=== PATIENT | male | born 1955 | race Caucasian/White ===

== ENCOUNTER → 2016-08-29 | Outpatient (CLI) | payer BC ==
[~2016-08-29] MED LIST: ALDA25TA2 PO; BENA20TA PO; BENA40TA2 PO; CATA0.2T PO; CIAL20TA PO; CLON0.2T PO; DILT120C79 PO; DILT240C5 PO; FURO1TAB15 PO; FURO40TA2 PO; HYDR-4266 PO; INSUHUMDS SC; LANTINJ4 SC; OMEG350C PO; SIMV40TA2 PO; ZANA4TAB PO
--- NOTE | 2016-08-30 09:03 | REP ---
MRI STUDY OF THE LEFT FEMUR WITHOUT CONTRAST: HISTORY: Quadriceps muscle strain. Question fascia or tendon injury. Pain beginning in the hip moving down the leg. Difficulty raising leg. No comparison radiographs. TECHNIQUE: Sagittal axial and coronal T1 proton density T2-weighted scans were obtained in the usual fashion with and without fat saturation. MRI FINDINGS: There is a mild pattern of subcutaneous edema which appears to be diffuse and on the coronal T2 sequence, bilateral. There is no evidence of focal injury of the quadriceps tendon group. Skeletal muscle signal intensity is normal on T1 and T2-weighted scans. Contours are smooth. Myofascial planes are not disrupted. No mass or abnormal fluid collection is appreciated. No vascular abnormality is seen. Cortical and medullary bone signal intensity are normal in the femur except at the knee where there is subtle subcortical marrow edema or cyst formation in the intercondylar notch of the left distal femur. There is magnetic field susceptibility artifact emanating from the proximal femurs or pelvis bilaterally. This is of uncertain etiology. It should be correlated with history of previous surgery. No other abnormality. IMPRESSION: No evidence of myofascial or skeletal injury. Magnetic field susceptibility artifact emanating from the pelvis or both proximal femurs, uncertain etiology. Question history of metal implants. Signed by Sheldon Bhandari MD 08/30/2016 09:28 A
== END ==
LOC: M RAD 18:35
PROVIDERS: ATTEND Nurse Practitioner Family
DX: S76.112A Strain of left quadriceps muscle, fascia and tendon, initial encounter (principal); W18.30XA Fall on same level, unspecified, initial encounter; Y92.009 Unspecified place in unspecified non-institutional (private) residence as the place of occurrence of the external cause

== ENCOUNTER → 2017-07-27 | Outpatient (REF) | payer BC ==
[~2017-07-27] MED LIST changes: -BENA40TA2 PO; +BENA40TA7 PO; -DILT240C5 PO; +DILT240C75 PO; -FURO1TAB15 PO; +FURO80TA2 PO; +HYDR-3910 PO; -HYDR-4266 PO
== END ==
LOC: M LAB REF 17:45
PROVIDERS: ATTEND Internal Medicine Nephrology
DX: N18.3 Chronic kidney disease, stage 3 (moderate) (principal)

== ENCOUNTER → 2017-09-29 | Outpatient (REF) | payer BC ==
[2017-09-29 17:48] LABS: FERRITIN 409 NG/ML (26-388); IRON (FE) 93 UG/DL (65-175); PERCENT SATURATION 32.3 % (19.7-50.0); TOTAL IRON BINDING CAPACITY 288 UG/DL (250-450)
== END ==
LOC: M LAB REF 16:54
DX: D50.9 Iron deficiency anemia, unspecified (principal)
CPT/HCPCS: 83550

== ENCOUNTER 2017-10-07 13:06 | Inpatient (IN) | payer BC ==
[2017-10-07 13:45] LABS: BASO % 0.1 % (0.0-1.0); EOS # 0.1 10^3/uL (0.0-0.50); EOS % 0.6 % (0.0-3.0); HEMATOCRIT 25.6 % (42.0-52.0); HEMOGLOBIN 8.7 g/dl (14.0-18.0); IMMATURE GRANULOCYTE % 0.4 % (0-3.0); LYMPH # 1.5 10^3/uL (1.5-4.5); LYMPH % 10.9 % (24.0-44.0); MEAN CORPUSCULAR HEMOGLOBIN 30.4 pg (27.0-33.0); MEAN CORPUSCULAR VOLUME 89.5 fl (80.0-96.0); MONO # 0.7 10^3/uL (0.0-0.8); NEUTROPHILS # 11.7 10^3/uL (1.8-7.7); PLATELET COUNT, AUTOMATED 257 10^3/uL (150-450); RED BLOOD COUNT 2.86 10^6/uL (4.30-6.10); RED CELL DISTRIBUTION WIDTH 13.4 % (11.5-14.5); WHITE BLOOD COUNT 14.1 10^3/uL (4.0-10.0)
[2017-10-07 13:55] LABS: INR 0.97
[2017-10-07 14:06] LABS: LACTIC ACID SEPSIS PROTOCOL 1.1 MMOL/L (0.4-2.0)
[2017-10-07 14:08] LABS: ANION GAP 10 MEQ/L (8-16); BLOOD UREA NITROGEN 127 MG/DL (7-18); CALCIUM LEVEL 8.4 MG/DL (8.8-10.2); CARBON DIOXIDE LEVEL 25 MEQ/L (21-32); CHLORIDE LEVEL 102 MEQ/L (98-107); CK-MB VALUE MASS 6.1 NG/ML (0.0-3.6); CPK CREATINE PHOSPHOKINASE 97 U/L (39-308); CREATININE FOR GFR 6.82 MG/DL (0.70-1.30); GLOMERULAR FILTRATION RATE 8.8 (>49); GLUCOSE, FASTING 111 MG/DL (70-100); MB/CK RELATIVE INDEX 6.28 (< OR =4); POTASSIUM SERUM 4.6 MEQ/L (3.5-5.1); SODIUM LEVEL 137 MEQ/L (136-145); TROPONIN I 0.07 NG/ML (< 0.10)
[2017-10-07 14:13] LABS: ALBUMIN 3.2 GM/DL (3.2-5.2); ALBUMIN/GLOBULIN RATIO 1.07 (1.00-1.93); ALKALINE PHOSPHATASE 82 U/L (45-117); ALT/SGPT 30 U/L (12-78); AST/SGOT 14 U/L (7-37); BILIRUBIN,DIRECT < 0.1 MG/DL (0.0-0.2); BILIRUBIN,TOTAL 0.2 MG/DL (0.2-1.0); NT-PRO BNP 938 PG/ML (<125); THYROXINE (T4) 6.4 UG/DL (4.5-12.0); TOTAL PROTEIN 6.2 GM/DL (6.4-8.2)
[2017-10-07] MEDS: FUROSEMIDE 100 MG/10 ML VIAL (J1940) IV (14:47)
[2017-10-07] MEDS ORDERED: GLUCAGON FOR INJ 1 MG VIAL (J1610) SC (16:15)
[2017-10-07] MEDS ORDERED: GLUCOSE 4 GM CHEW TABLET PO (16:15)
[2017-10-07] MEDS ORDERED: DEXTROSE 50% 50 ML SYRINGE IV (16:15)
[2017-10-07] MEDS ORDERED: ACETAMINOPHEN TAB 650MG DOSE (2X325MG) PO (16:15)
[2017-10-07] MEDS ORDERED: tiZANidine 4 MG TAB PO (16:15)
[2017-10-07 16:26] LABS: OSMOLALITY URINE 337 MOSM/KG (500-800)
[2017-10-07 16:37] LABS: APPEARANCE, URINE HAZY (CLEAR); BACTERIA, URINE AUTO NEGATIVE (NEGATIVE); BILIRUBIN, URINE AUTO NEGATIVE (NEGATIVE); BLOOD, URINE BLOOD NEGATIVE (NEGATIVE); COLOR, URINE YELLOW (YELLOW); GLUCOSE, URINE (UA) AUTO 1+ mg/dL (NEGATIVE); KETONE, URINE AUTO NEGATIVE (NEGATIVE); LEUKOCYTE ESTERASE, URINE AUTO NEGATIVE (NEGATIVE); MUCUS, URINE SMALL (NEGATIVE); NITRITE, URINE AUTO NEGATIVE (NEGATIVE); PROTEIN, URINE AUTO 2+ mg/dL (NEGATIVE); RBC, URINE AUTO 3 /HPF (0-3); RETIC HEMOGLOBIN EQUIVALENT 37.4 pg (24-36); RETICULOCYTE # 36.5 10^9/L (17-77); RETICULOCYTE % 1.3 % (0.5-1.5); SPECIFIC GRAVITY URINE AUTO 1.011 (1.002-1.035); SQUAMOUS EPITHELIAL CELL UR AU 0 /HPF (0-6); UROBILINOGEN, URINE AUTO 0.2 mg/dL (0.0-2.0); WBC, URINE AUTO 1 /HPF (0-3)
[2017-10-07 16:40] LABS: CHLORIDE,RANDOM URINE 44 MEQ/L; POTASSIUM RANDOM URINE 29.7 MEQ/L; SODIUM,RANDOM URINE 44 MEQ/L; TOTAL PROTEIN,RANDOM URINE 143.3 MG/DL (0.0-12.0)
[2017-10-07 16:41] LABS: FERRITIN 364 NG/ML (26-388); IRON (FE) 68 UG/DL (65-175); PERCENT SATURATION 26.6 % (19.7-50.0); TOTAL IRON BINDING CAPACITY 256 UG/DL (250-450)
[2017-10-07 16:55] LABS: BEDSIDE GLUCOSE 108 MG/DL (80-115)
[2017-10-07] MEDS: HumaLOG INSULIN (NovoLOG) PER UNIT SC ×2 (17:58→20:33)
[2017-10-07 18:04] LABS: BEDSIDE GLUCOSE 98 MG/DL (80-115)
[2017-10-07] MEDS: FUROSEMIDE 40 MG/4 ML VIAL (J1940) IV ×2 (20:12→23:51)
[2017-10-07] MEDS: LEVEMIR (INSULIN DETEMIR) 1 UNITS/0.01ML SC (20:34)
[2017-10-07 20:58] LABS: BEDSIDE GLUCOSE 139 MG/DL (80-115)
[2017-10-07] MEDS: ATROPINE SULFATE 1% OP SOLN 2 ML BTL OU (21:15)
[2017-10-07] MEDS: HEPARIN SOD (PORCINE) 5000 UNITS/ML VIAL SC (21:15)
[2017-10-07] MEDS: SIMVASTATIN 40 MG TAB PO (21:15)
[2017-10-07] MEDS: SLF 3 ML SYR IV (21:15)
[2017-10-08] MEDS: FUROSEMIDE 40 MG/4 ML VIAL (J1940) IV ×4 (04:34→16:28)
[2017-10-08 05:33] LABS: HEMATOCRIT 24.5 % (42.0-52.0); HEMOGLOBIN 8.5 g/dl (14.0-18.0); MEAN CORPUSCULAR HEMOGLOBIN 31.3 pg (27.0-33.0); MEAN CORPUSCULAR HGB CONC 34.7 g/dl (32.0-36.5); MEAN CORPUSCULAR VOLUME 90.1 fl (80.0-96.0); PLATELET COUNT, AUTOMATED 244 10^3/uL (150-450); RED BLOOD COUNT 2.72 10^6/uL (4.30-6.10); RED CELL DISTRIBUTION WIDTH 13.6 % (11.5-14.5); WHITE BLOOD COUNT 15.5 10^3/uL (4.0-10.0)
[2017-10-08 05:48] LABS: ALBUMIN 3.1 GM/DL (3.2-5.2); ALBUMIN/GLOBULIN RATIO 1.15 (1.00-1.93); ALKALINE PHOSPHATASE 79 U/L (45-117); ALT/SGPT 29 U/L (12-78); ANION GAP 11 MEQ/L (8-16); AST/SGOT 11 U/L (7-37); BILIRUBIN,TOTAL 0.2 MG/DL (0.2-1.0); BLOOD UREA NITROGEN 128 MG/DL (7-18); CALCIUM LEVEL 8.3 MG/DL (8.8-10.2); CARBON DIOXIDE LEVEL 24 MEQ/L (21-32); CHLORIDE LEVEL 102 MEQ/L (98-107); CREATININE FOR GFR 7.01 MG/DL (0.70-1.30); GLOMERULAR FILTRATION RATE 8.5 (>49); GLUCOSE, FASTING 155 MG/DL (70-100); MAGNESIUM LEVEL 2.5 MG/DL (1.8-2.4); POTASSIUM SERUM 4.6 MEQ/L (3.5-5.1); SODIUM LEVEL 137 MEQ/L (136-145); TOTAL PROTEIN 5.8 GM/DL (6.4-8.2)
[2017-10-08] MEDS ORDERED: HEPARIN SOD (PORCINE) 5000 UNITS/ML VIAL As Ordered (06:15)
[2017-10-08] MEDS: SLF 3 ML SYR IV ×3 (06:22→21:09)
[2017-10-08] MEDS: HEPARIN SOD (PORCINE) 5000 UNITS/ML VIAL SC ×3 (06:22→21:09)
[2017-10-08] MEDS: HumaLOG INSULIN (NovoLOG) PER UNIT SC ×4 (07:51→20:37)
[2017-10-08] MEDS: MULTIVITAMINS/MINERALS THERAP 1 TAB PO (08:41)
[2017-10-08] MEDS: VITAMIN D 1,000 INTERNATIONAL UNITS TABLET PO (08:41)
[2017-10-08] MEDS: CALCITRIOL 0.25 MCG CAP (S0169) PO (08:42)
[2017-10-08] MEDS: ATROPINE SULFATE 1% OP SOLN 2 ML BTL OU ×2 (08:44→21:10)
[2017-10-08] MEDS: LEVEMIR (INSULIN DETEMIR) 1 UNITS/0.01ML SC ×2 (08:44→20:38)
[2017-10-08 11:52] LABS: BEDSIDE GLUCOSE 172 MG/DL (80-115)
[2017-10-08] MEDS: PANTOPRAZOLE 40MG INJ (PROTONIX) (C9113) IV (12:18)
[2017-10-08] MEDS ORDERED: DARBEPOETIN 100 MCG/0.5 ML *DIALYSIS* SYRINGE (J0882) IV (16:45)
[2017-10-08 16:54] LABS: BEDSIDE GLUCOSE 95 MG/DL (80-115)
[2017-10-08] MEDS: SIMVASTATIN 40 MG TAB PO (21:09)
[2017-10-09] MEDS: FUROSEMIDE 40 MG/4 ML VIAL (J1940) IV ×3 (00:10→17:47)
[2017-10-09 03:39] LABS: BEDSIDE GLUCOSE 93 MG/DL (80-115)
[2017-10-09 03:39] LABS: BEDSIDE GLUCOSE 59 MG/DL (80-115)
[2017-10-09 03:47] LABS: BEDSIDE GLUCOSE 121 MG/DL (80-115)
[2017-10-09] MEDS: HEPARIN SOD (PORCINE) 5000 UNITS/ML VIAL SC ×3 (05:06→22:08)
[2017-10-09] MEDS: SLF 3 ML SYR IV ×4 (05:07→17:44)
[2017-10-09 05:20] LABS: HEMATOCRIT 24.1 % (42.0-52.0); HEMOGLOBIN 8.3 g/dl (14.0-18.0); MEAN CORPUSCULAR HGB CONC 34.4 g/dl (32.0-36.5); MEAN CORPUSCULAR VOLUME 89.9 fl (80.0-96.0); PLATELET COUNT, AUTOMATED 243 10^3/uL (150-450); RED BLOOD COUNT 2.68 10^6/uL (4.30-6.10); RED CELL DISTRIBUTION WIDTH 13.4 % (11.5-14.5); WHITE BLOOD COUNT 12.6 10^3/uL (4.0-10.0)
[2017-10-09 05:33] LABS: ALBUMIN 2.9 GM/DL (3.2-5.2); ALBUMIN/GLOBULIN RATIO 0.91 (1.00-1.93); ALKALINE PHOSPHATASE 77 U/L (45-117); ALT/SGPT 29 U/L (12-78); ANION GAP 11 MEQ/L (8-16); AST/SGOT 17 U/L (7-37); BILIRUBIN,TOTAL 0.3 MG/DL (0.2-1.0); BLOOD UREA NITROGEN 121 MG/DL (7-18); CALCIUM LEVEL 8.2 MG/DL (8.8-10.2); CARBON DIOXIDE LEVEL 25 MEQ/L (21-32); CHLORIDE LEVEL 104 MEQ/L (98-107); CREATININE FOR GFR 6.52 MG/DL (0.70-1.30); GLOMERULAR FILTRATION RATE 9.3 (>49); GLUCOSE, FASTING 126 MG/DL (70-100); MAGNESIUM LEVEL 2.4 MG/DL (1.8-2.4); POTASSIUM SERUM 4.3 MEQ/L (3.5-5.1); SODIUM LEVEL 140 MEQ/L (136-145); TOTAL PROTEIN 6.1 GM/DL (6.4-8.2)
[2017-10-09] MEDS: HumaLOG INSULIN (NovoLOG) PER UNIT SC ×4 (07:30→20:24)
[2017-10-09] MEDS: LEVEMIR (INSULIN DETEMIR) 1 UNITS/0.01ML SC ×2 (08:54→21:00)
[2017-10-09] MEDS: PANTOPRAZOLE 40MG INJ (PROTONIX) (C9113) IV (08:54)
[2017-10-09] MEDS: MULTIVITAMINS/MINERALS THERAP 1 TAB PO (09:01)
[2017-10-09] MEDS: VITAMIN D 1,000 INTERNATIONAL UNITS TABLET PO (09:01)
[2017-10-09] MEDS: CALCITRIOL 0.25 MCG CAP (S0169) PO (09:01)
[2017-10-09] MEDS: ATROPINE SULFATE 1% OP SOLN 2 ML BTL OU ×2 (09:04→21:01)
[2017-10-09 09:27] LABS: FOLATE > 24.0 NG/ML (>5.4); VITAMIN B12 LEVEL 736 PG/ML (247-911)
[2017-10-09 10:02] LABS: HEPATITIS B SURFACE ANTIBODY NEGATIVE (POSITIVE)
[2017-10-09 10:11] LABS: HEPATITIS B SURFACE ANTIGEN NEGATIVE (NEGATIVE)
[2017-10-09 12:00] LABS: BEDSIDE GLUCOSE 339 MG/DL (80-115)
[2017-10-09] MEDS ORDERED: LIDOCAINE 2% MDV 20 ML VIAL As Ordered (13:08)
[2017-10-09] MEDS ORDERED: HEPARIN 1,000 UNITS/ML 10ML VIAL (FOR RADIOLOGY& DIALYSIS ONLY) As Ordered (13:11)
[2017-10-09 17:34] LABS: BEDSIDE GLUCOSE 89 MG/DL (80-115)
[2017-10-09] MEDS: ONDANSETRON 4MG/2ML VIAL (J2405) IV (17:40)
[2017-10-09 20:26] LABS: BEDSIDE GLUCOSE 191 MG/DL (80-115)
[2017-10-09] MEDS: SIMVASTATIN 40 MG TAB PO (21:01)
[2017-10-10] MEDS: SLF 3 ML SYR IV ×4 (00:35→22:00)
[2017-10-10] MEDS: FUROSEMIDE 40 MG/4 ML VIAL (J1940) IV ×3 (00:39→16:16)
[2017-10-10 04:38] LABS: BEDSIDE GLUCOSE 59 MG/DL (80-115)
[2017-10-10 04:54] LABS: BEDSIDE GLUCOSE 74 MG/DL (80-115)
[2017-10-10] MEDS: HEPARIN SOD (PORCINE) 5000 UNITS/ML VIAL SC ×3 (05:00→23:57)
[2017-10-10 05:12] LABS: HEMATOCRIT 25.8 % (42.0-52.0); HEMOGLOBIN 8.9 g/dl (14.0-18.0); MEAN CORPUSCULAR HEMOGLOBIN 30.4 pg (27.0-33.0); MEAN CORPUSCULAR HGB CONC 34.5 g/dl (32.0-36.5); MEAN CORPUSCULAR VOLUME 88.1 fl (80.0-96.0); PLATELET COUNT, AUTOMATED 263 10^3/uL (150-450); RED BLOOD COUNT 2.93 10^6/uL (4.30-6.10); RED CELL DISTRIBUTION WIDTH 13.6 % (11.5-14.5); WHITE BLOOD COUNT 13.3 10^3/uL (4.0-10.0)
[2017-10-10 05:31] LABS: BEDSIDE GLUCOSE CONFIRMATION 84 MG/DL (LESS THAN 200)
[2017-10-10 05:38] LABS: ALBUMIN 3.3 GM/DL (3.2-5.2); ALBUMIN/GLOBULIN RATIO 1.06 (1.00-1.93); ALKALINE PHOSPHATASE 84 U/L (45-117); ALT/SGPT 32 U/L (12-78); ANION GAP 10 MEQ/L (8-16); AST/SGOT 20 U/L (7-37); BILIRUBIN,TOTAL 0.3 MG/DL (0.2-1.0); BLOOD UREA NITROGEN 112 MG/DL (7-18); CALCIUM LEVEL 8.5 MG/DL (8.8-10.2); CARBON DIOXIDE LEVEL 26 MEQ/L (21-32); CHLORIDE LEVEL 107 MEQ/L (98-107); CREATININE FOR GFR 5.61 MG/DL (0.70-1.30); GLUCOSE, FASTING 82 MG/DL (70-100); MAGNESIUM LEVEL 2.5 MG/DL (1.8-2.4); POTASSIUM SERUM 4.1 MEQ/L (3.5-5.1); SODIUM LEVEL 143 MEQ/L (136-145); TOTAL PROTEIN 6.4 GM/DL (6.4-8.2)
[2017-10-10] MEDS: HumaLOG INSULIN (NovoLOG) PER UNIT SC ×4 (07:30→21:00)
[2017-10-10] MEDS: LEVEMIR (INSULIN DETEMIR) 1 UNITS/0.01ML SC (07:38)
[2017-10-10] MEDS: CALCITRIOL 0.25 MCG CAP (S0169) PO (08:13)
[2017-10-10] MEDS: VITAMIN D 1,000 INTERNATIONAL UNITS TABLET PO (08:13)
[2017-10-10] MEDS: MULTIVITAMINS/MINERALS THERAP 1 TAB PO (08:13)
[2017-10-10] MEDS: PANTOPRAZOLE 40MG INJ (PROTONIX) (C9113) IV (08:13)
[2017-10-10] MEDS: ATROPINE SULFATE 1% OP SOLN 2 ML BTL OU (08:17)
[2017-10-10 11:56] LABS: BEDSIDE GLUCOSE 245 MG/DL (80-115)
[2017-10-10] MEDS: HEPARIN 1,000 UNITS/ML 10ML VIAL (FOR RADIOLOGY& DIALYSIS ONLY) XX (15:45)
[2017-10-10 17:19] LABS: BEDSIDE GLUCOSE 247 MG/DL (80-115)
[2017-10-11] MEDS: SIMVASTATIN 40 MG TAB PO (00:04)
[2017-10-11] MEDS: LEVEMIR (INSULIN DETEMIR) 1 UNITS/0.01ML SC ×2 (00:08→08:35)
[2017-10-11] MEDS: ATROPINE SULFATE 1% OP SOLN 2 ML BTL OU ×2 (00:13→08:37)
[2017-10-11 01:41] LABS: BEDSIDE GLUCOSE 322 MG/DL (80-115)
[2017-10-11] MEDS: HEPARIN SOD (PORCINE) 5000 UNITS/ML VIAL SC (05:02)
[2017-10-11] MEDS: SLF 3 ML SYR IV (05:02)
[2017-10-11 05:16] LABS: BEDSIDE GLUCOSE 271 MG/DL (80-115)
[2017-10-11 05:49] LABS: HEMATOCRIT 26.7 % (42.0-52.0); MEAN CORPUSCULAR HEMOGLOBIN 30.4 pg (27.0-33.0); MEAN CORPUSCULAR HGB CONC 33.7 g/dl (32.0-36.5); MEAN CORPUSCULAR VOLUME 90.2 fl (80.0-96.0); PLATELET COUNT, AUTOMATED 240 10^3/uL (150-450); RED BLOOD COUNT 2.96 10^6/uL (4.30-6.10); RED CELL DISTRIBUTION WIDTH 13.8 % (11.5-14.5); WHITE BLOOD COUNT 10.7 10^3/uL (4.0-10.0)
[2017-10-11 06:25] LABS: ALBUMIN 3.1 GM/DL (3.2-5.2); ALBUMIN/GLOBULIN RATIO 0.84 (1.00-1.93); ALKALINE PHOSPHATASE 82 U/L (45-117); ALT/SGPT 30 U/L (12-78); ANION GAP 7 MEQ/L (8-16); AST/SGOT 20 U/L (7-37); BILIRUBIN,TOTAL 0.3 MG/DL (0.2-1.0); BLOOD UREA NITROGEN 75 MG/DL (7-18); CALCIUM LEVEL 8.7 MG/DL (8.8-10.2); CARBON DIOXIDE LEVEL 29 MEQ/L (21-32); CHLORIDE LEVEL 106 MEQ/L (98-107); CREATININE FOR GFR 4.47 MG/DL (0.70-1.30); GLOMERULAR FILTRATION RATE 14.3 (>49); GLUCOSE, FASTING 249 MG/DL (70-100); MAGNESIUM LEVEL 2.3 MG/DL (1.8-2.4); POTASSIUM SERUM 4.3 MEQ/L (3.5-5.1); SODIUM LEVEL 142 MEQ/L (136-145); TOTAL PROTEIN 6.8 GM/DL (6.4-8.2)
[2017-10-11] MEDS: HumaLOG INSULIN (NovoLOG) PER UNIT SC (08:35)
[2017-10-11] MEDS: VITAMIN D 1,000 INTERNATIONAL UNITS TABLET PO (08:36)
[2017-10-11] MEDS: CALCITRIOL 0.25 MCG CAP (S0169) PO (08:36)
[2017-10-11] MEDS: PANTOPRAZOLE 40MG INJ (PROTONIX) (C9113) IV (08:36)
[2017-10-11] MEDS: MULTIVITAMINS/MINERALS THERAP 1 TAB PO (08:36)
[2017-10-11] MEDS ORDERED: TORSEMIDE 100 MG TAB PO (09:00)
[2017-10-11] MEDS ORDERED: MINOXIDIL 2.5 MG TAB PO (09:00)
== END 2017-10-11 10:10 | disposition home or self-care (01) | DRG 167 ==
LOC: M ED 13:06 → M ED INP 15:47 → M PCU 17:45
PROC: 02H633Z Insertion of Infusion Device into Right Atrium, Percutaneous Approach (ICD-10-PCS; principal; 2017-10-09)
PROC: 0JH63XZ Insertion of Tunneled Vascular Access Device into Chest Subcutaneous Tissue and Fascia, Percutaneous Approach (ICD-10-PCS; 2017-10-09)
DX: I13.2 Hypertensive heart and chronic kidney disease with heart failure and with stage 5 chronic kidney disease, or end stage renal disease (principal); N17.9 Acute kidney failure, unspecified; E66.01 Morbid (severe) obesity due to excess calories; G62.9 Polyneuropathy, unspecified; E87.70 Fluid overload, unspecified; E78.5 Hyperlipidemia, unspecified; E11.9 Type 2 diabetes mellitus without complications; D63.1 Anemia in chronic kidney disease; N18.6 End stage renal disease; M10.9 Gout, unspecified; E66.9 Obesity, unspecified; Z79.899 Other long term (current) drug therapy; Z79.4 Long term (current) use of insulin; H40.9 Unspecified glaucoma; Z88.8 Allergy status to other drugs, medicaments and biological substances; I50.33 Acute on chronic diastolic (congestive) heart failure

== ENCOUNTER 2017-12-19 07:41 | Day surgery (SDC) | payer BC ==
[2017-12-19] MEDS ORDERED: NS 1,000 ML IV (08:00)
[2017-12-19 08:29] LABS: POTASSIUM SERUM 4.5 MEQ/L (3.5-5.1)
[2017-12-19 08:42] LABS: BEDSIDE GLUCOSE 101 MG/DL (80-115)
[2017-12-19] MEDS: BUPIVACAINE HCL 0.5% 30 ML VIAL As Ordered (09:10)
[2017-12-19] MEDS: ISOVUE-300 61% 50ML VIAL (Q9967) As Ordered (09:10)
[2017-12-19] MEDS ORDERED: fentaNYL 100 MCG/2 ML INJECTION (J3010) As Ordered (09:45)
[2017-12-19] MEDS ORDERED: PROPOFOL 200 MG/20 ML VIAL As Ordered (09:45)
[2017-12-19] MEDS ORDERED: MIDAZOLAM INJ 2 MG/2 ML VIAL (J2250) As Ordered (09:45)
[2017-12-19] MEDS ORDERED: LIDOCAINE 2% INJ 100 MG/5 ML SDV (FOR ANES.) As Ordered (09:45)
[2017-12-19] MEDS ORDERED: PROPOFOL 500 MG/50 ML VIAL As Ordered (10:23)
[2017-12-19] MEDS: HEPARIN SOD (PORCINE) 5000 UNITS/ML VIAL As Ordered (10:32)
[2017-12-19] MEDS: LIDOCAINE 1% SDV INJ 30 ML VIAL As Ordered (11:00)
== END 2017-12-19 12:04 | disposition home or self-care (01) ==
LOC: M SDC 07:41
DX: N18.6 End stage renal disease (principal); Z99.2 Dependence on renal dialysis
CPT/HCPCS: 36821

== ENCOUNTER → 2018-01-03 | Outpatient (CLI) | payer BC ==
[~2018-01-03] MED LIST changes: -ALDA25TA2 PO; -BENA20TA PO; -BENA40TA7 PO; -CATA0.2T PO; -CIAL20TA PO; -CLON0.2T PO; -DILT120C79 PO; -DILT240C75 PO; -FURO40TA2 PO; -FURO80TA2 PO; +HEPARIN 1,000 UNITS/ML 10ML VIAL (FOR RADIOLOGY& DIALYSIS ONLY) As Ordered; -HYDR-3910 PO; -INSUHUMDS SC; +ISOVUE-300 61% 50ML VIAL (Q9967) As Ordered; -LANTINJ4 SC; +MIDAZOLAM INJ 2 MG/2 ML VIAL (J2250) As Ordered; -OMEG350C PO; -SIMV40TA2 PO; -ZANA4TAB PO; +fentaNYL 100 MCG/2 ML INJECTION (J3010) As Ordered
== END | disposition home or self-care (01) ==
LOC: M IRPRO 07:45
DX: T82.898A Other specified complication of vascular prosthetic devices, implants and grafts, initial encounter (principal); N18.6 End stage renal disease
CPT/HCPCS: 36901

== ENCOUNTER 2018-02-02 11:31 | Day surgery (SDC) | payer BC ==
[2018-02-02] MEDS ORDERED: LIDOCAINE 1% MDV 20ML VIAL SQ (11:45)
[2018-02-02] MEDS ORDERED: D5W/0.2% SODIUM CHLORIDE 1,000 ML IV (11:45)
[2018-02-02] MEDS ORDERED: ROCURONIUM BROMIDE 50 MG/5 ML VIAL As Ordered (12:21)
[2018-02-02] MEDS ORDERED: LIDOCAINE 2% INJ 100 MG/5 ML SDV (FOR ANES.) As Ordered (12:21)
[2018-02-02] MEDS ORDERED: PROPOFOL 200 MG/20 ML VIAL As Ordered ×2 (12:21→13:17)
[2018-02-02 12:23] LABS: POTASSIUM SERUM 4.3 MEQ/L (3.5-5.1)
[2018-02-02 12:26] LABS: BEDSIDE GLUCOSE 171 MG/DL (80-115)
[2018-02-02] MEDS ORDERED: fentaNYL 100 MCG/2 ML INJECTION (J3010) As Ordered (13:05)
[2018-02-02] MEDS ORDERED: MIDAZOLAM INJ 2 MG/2 ML VIAL (J2250) As Ordered (13:05)
[2018-02-02] MEDS ORDERED: ONDANSETRON 4MG/2ML VIAL (J2405) As Ordered (14:08)
[2018-02-02] MEDS: BUPIVACAINE HCL 0.5% 30 ML VIAL As Ordered (14:15)
[2018-02-02] MEDS: LIDOCAINE 1% SDV INJ 30 ML VIAL As Ordered (14:15)
[2018-02-02 14:52] LABS: BEDSIDE GLUCOSE 168 MG/DL (80-115)
[2018-02-02] MEDS ORDERED: NS 1,000 ML IV (15:30)
[2018-02-02] MEDS ORDERED: NORCO, ANEXSIA 5/325MG TABLET (HYDROcodone/ACETAMINOPHEN) PO (15:30)
[2018-02-02] MEDS ORDERED: ONDANSETRON 4MG/2ML VIAL (J2405) IV (15:30)
[2018-02-02] MEDS ORDERED: fentaNYL 100 MCG/2 ML INJECTION (J3010) IV (15:30)
== END 2018-02-02 16:23 | disposition home or self-care (01) ==
LOC: M SDC 11:31
DX: N18.6 End stage renal disease (principal); Z99.2 Dependence on renal dialysis; I10 Essential (primary) hypertension; E11.9 Type 2 diabetes mellitus without complications; E78.5 Hyperlipidemia, unspecified; D64.9 Anemia, unspecified; Z79.899 Other long term (current) drug therapy; Z79.4 Long term (current) use of insulin
CPT/HCPCS: 49324

== ENCOUNTER → 2018-04-12 | Outpatient (CLI) | payer BC, MEDICARE ==
[~2018-04-12] MED LIST changes: -HEPARIN 1,000 UNITS/ML 10ML VIAL (FOR RADIOLOGY& DIALYSIS ONLY) As Ordered; -ISOVUE-300 61% 50ML VIAL (Q9967) As Ordered; +LIDOCAINE 2% MDV 20 ML VIAL As Ordered; -MIDAZOLAM INJ 2 MG/2 ML VIAL (J2250) As Ordered; -fentaNYL 100 MCG/2 ML INJECTION (J3010) As Ordered
== END | disposition home or self-care (01) ==
LOC: M IRPRO 10:13
DX: Z45.2 Encounter for adjustment and management of vascular access device (principal); N18.6 End stage renal disease; Z99.2 Dependence on renal dialysis
CPT/HCPCS: 36589

== ENCOUNTER 2019-05-13 19:18 | Inpatient (IN) | payer BC, MEDICARE ==
[~2019-05-13 19:18] MED LIST changes: +ALDA25TA2 PO; +ALLO10TA PO; +ATRO1OPD OU; +BENA20TA PO; +BENA40TA7 PO; +BIMA01SOL OS; +CALC1CAP31 PO; +CATA0.2T PO; +CIAL20TA PO; +CLON-412 PO; +CLON0.2T PO; +DILT120C78 PO; +DILT240C28 PO; +DILT240C82 PO; +DURE0.055 OD; +FURO40TA2 PO; +FURO80TA2 PO; +HYDR-3910 PO; +ILEV0.3D OD; +INSUHUMDS SC; +INSULANT SC; +LANTINJ4 SC; -LIDOCAINE 2% MDV 20 ML VIAL As Ordered; +MINO10TA PO; +OMEG350C PO; +POLY2.5S OD; +PRED10PA PO; +SIMB1SUS OS; +SIMV40TA2 PO; +TIMO0.5S29 OS; +TORS100T PO; +VITA-182 PO; +VITMTA PO; +ZANA4TAB PO
[2019-05-13 20:30] VITALS: BP 174/72
[2019-05-13 21:38] LABS: HEMATOCRIT 28.4 % (42.0-52.0); HEMOGLOBIN 9.5 g/dl (13.5-17.5); MEAN CORPUSCULAR HEMOGLOBIN 32.8 pg (27.0-33.0); MEAN CORPUSCULAR HGB CONC 33.5 g/dl (32.0-36.5); MEAN CORPUSCULAR VOLUME 97.9 fl (80.0-96.0); PLATELET COUNT, AUTOMATED 250 10^3/uL (150-450); WHITE BLOOD COUNT 15.2 10^3/uL (4.0-10.0)
--- NOTE | 2019-05-13 21:49 | HPEPDOC ---
[facility] Medical History & Physical Date of Admission May 13, 2019 Date of Service: May 13, 2019 Primary Care Physician: Debbie Mullen Attending Physician: SILVIA GUTIERREZ MD History and Physical CHIEF COMPLAINT: Syncope HISTORY OF PRESENT ILLNESS: Patient is a 63-year-old male, past medical history significant for end-stage renal disease on peritoneal dialysis, diabetes mellitus, diabetic neuropathy, diabetic retinopathy, hypertension, chronic cervical disc disease, who presents to the hospital as a direct admission from [facility]. Patient presented to [facility] this afternoon after experiencing a syncopal episode at home. Patient states that he was sitting comfortably in his kitchen at home eating lunch. He then intended to stand up and walk towards the living room to change the television channel. Patient reports being unsure of what happened next. Patient reports loss of consciousness coming to approximately 30-40 minutes thereafter. Patient denies any bladder or bowel incontinence, no nausea or vomiting. Patient does have baseline dizziness and some difficulty ambulating secondary to significant diabetic neuropathy for which he often uses a cane. Patient denied any postictal state or confusion. He denied any resulting pain in his head and neck back or shoulders. Upon presentation to the [facility] emergency department, patient was noted to have a single contusion on his forehead. Vitals were found to be stable with a blood pressure 145/58, heart rate of 77, respiratory rate of 16, oxygen saturation 99% on room air and a temperature of 98.3F. An EKG was performed patient was found to be in sinus rhythm at a rate of 76 with a right bundle branch block. Comparison with EKG performed on 10/07/17 the patient was in the emergency department also demonstrates some right ventricular conduction delay.CBC evaluation demonstrated a white cell count of 15.1 predominantly granulocytes. PT and INR within normal limits. Lactic acid 1.4, TSH of 2.55. Patient's BUNs measured at 66 and creatinine of 10.6 consistent with his end- stage renal disease. Alkaline phosphatase was noted to be minimally elevated at 125. The case was discussed with patient's nephrology office and covering provider, Dr. Contreras. Patient transferred for continued peritoneal dialysis and syncopal workup. Patient was accepted for transfer by Dr. Kaplan at 1730. PAST MEDICAL HISTORY: Diabetes mellitus End-stage renal disease, Peritoneal dialysis, 14 months Monday, , Monday Cervical herniated disc, chronic Hypertension Gout Diabetic neuropathy Diabetic retinopathy and vision loss HFpEF Obesity PAST SURGICAL HISTORY: Bilateral cataracts, 2017 Tubular implant right eye, 2018 fistula in left arm Peritoneal graft for dialysis SOCIAL HISTORY: Marital status: , resides in home with spouse. Employment: Retired Tobacco use: Patient denies any smoking history. ETOH: Patient denies any alcohol use or recent intoxication. Illicit drug use: She denies any illicit or IV drug use. Other relevant social factors: Patient denies any recent travel history. Patient utilizes a cane for ambulation secondary to his long-standing neuropathy. FAMILY HISTORY: Family history noncontributory. ALLERGIES: acetazolamide REVIEW OF SYSTEMS: CONSTITUTIONAL: Denies any recent history of fevers or chills, night sweats, trouble sleeping, changes in weight or generalized fatigue. HEENT: Patient denies any headache, changes in vision, changes in hearing, difficulty swallowing. CARDIOVASCULAR: Patient denies any chest pain, palpitations, inappropriate tachycardia RESPIRATORY: Patient denies any recent history of cough, wheeze. He denies any shortness of breath GASTROINTESTINAL: Patient reports intermittent diarrhea over the last 15 days. Most recent stool this morning was performed. GENITOURINARY: Patient continues to produce a very small amount of urine. SKIN: A small contusion measure approximately 2.5 x 2.5 cm noted over patient's forehead. MUSCULOSKELETAL: Patient reports some weakness secondary to neuropathy. He utilizes a cane for ambulation. NEUROLOGICAL: Patient is at baseline mental status per patient's was at bedside. PSYCHIATRIC: Patient denies any history of depressive or anxious symptoms. ENDOCRINE: Denies any polyphagia or polyuria or polydipsia. HEMATOLOGIC/LYMPHATIC: Denies easy bruising. HOME MEDICATIONS: Please see below. PHYSICAL EXAMINATION: VITAL SIGNS: Temperature 98.1, pulse 81, respiratory rate 18, blood pressure 175/86, pulse oximetry 99 % on room air. GENERAL APPEARANCE: She was interviewed and examined in his hospital room. Patient was found to be seated comfortably in his hospital bed, awake and alert and able to answer questions appropriately. Patient's is at bedside. Epifanio bronson appears stated age, knowledgeable of his medical history and able to participate in his care. HEENT: Normocephalic, Contusion measuring approximately 2 cm x 2 cm noted on patient's forehead. Patient's cavarum is otherwise nontender. EOMI, PERRLA. It is membranes moist. No posterior pharyngeal erythema or tonsilar exudates noted. CARDIOVASCULAR: Regular rate and rhythm, normal S1 and S2, no murmurs appreciated. LUNGS: Clear to auscultation bilaterally both anterior and posterior lung schilling. No wheezing rales or rhonchi noted. ABDOMEN: Slightly distended, nontender, no organomegaly, no guarding. Peritoneal dialysis catheter noted without drainage or surrounding erythema. MUSCULOSKELETAL: Patient does not have any shoulder, clavicle, chest, thoracic or lumbar tenderness to palpation bilaterally. EXTREMITIES: Bruit of the left forearm palpated and auscultated. Compression stockings are noted with very trace edema bilaterally. NEUROLOGICAL: Cranial nerves intact. Patient does have decreased sensation equal bilaterally below the knees secondary to long-standing neuropathy. Strength in both upper and lower extremities grossly intact. 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 PSYCHIATRIC: Mood and affect are appropriate given patient's current medical condition LABORATORY DATA: See below. IMAGING: Chest x-ray, [facility] (05/13/19): Radiologist report unavailable. Head CT without contrast, [facility] (05/13/19): Moderate diffuse cerebral atrophy of aging is noted. There is no parenchymal hematomas or extra-axial collections. Severely calcified plaque dimensions of the right vertebral artery is noted. Cervical spine without contrast, [facility] (05/13/19): Severe degenerative changes, loss of normal physiologic lordosis of C5-C6 likely degenerative in nature or secondary to muscle spasm. Ligamentous injury can also. This manner. MICROBIOLOGY: Blood culture, [facility] (05/13/19): Pending PLAN: Syncope -Patient is at low-risk for adverse outcome per [place] Syncope Rule. Consider idiopathic etiology. -Vitals stable, EKG significant for RBBB, no ST changes. Electrolytes and Troponins at [facility] were negative. -Repeat CBC, CMP and Troponin. -Head CT performed at [facility] negative. Baseline mental status without focal deficits on examination. -Tele monitoring for arrhythmia. Neuro checks Q4Hr -Plan for echocardiogram. No significant murmur on examination. Patient denies any chest pain/palpitations or shortness of breath. Patient had an echo performed in September 2017 which demonstrated mild concentric left ventricular hypertrophy with hyperdynamic wall motion. Mildly dilated left atrium with Doppler evidence of impairment of LV diastolic dysfunction and elevated mean left atrial pressure. Normal right heart chamber sizes and motion with Doppler with signs of at least mild pulmonary hypertension. Normal IV CBC size and collapse against elevated central venous pressure at. Mild aortic valvular sclerosis and mitral annular thickening without functionally significant valvular abnormality. Since 2015, his left atrial pressure was increased but otherwise no significant change. End-stage renal disease -Nephrology was consulted regarding possibility of SBP and we appreciate their input -Workup per nephrology -Continue PD Leukocytosis -Patient was found to have an elevated white count of 15.1 while [facility]. Repeat CBC confirms leukocytosis of 15.2. -Patient remains afebrile without history of fever, chills, or respiratory symptoms. -Continue to monitor with CBC and diff -Patient at risk of SBP, prophylactic antibiotics not recommended at this time -Consider reactionary etiology HFpEF -As per 2018 echo cited above. Type 2 diabetes -Patient to receive reduced dose of home Levemir -Lantus 20 units SC QPM -Lantus 30 units SC QAM -Sliding scale insulin before meals and QS. HTN -Continue home medication Dyslipidemia -Continue home statin Diabetic Retinopathy -Continue home medications Obesity -May complicate medical care. DVT PROPHYLAXIS: Subcutaneous heparin Home Medications Scheduled Atropine Sulfate (Atropine Sulfate) 1% 2ML Drops, 1 DROP OS DAILY Bimatoprost (Lumigan) 50 Drop/2.5 Ml Karla, 1 DROP OS QHS Brimonidine Tartrate/Timolol (Combigan 0.2%-0.5% Eye Drops) 5 Ml Drops, 1 DROP OU BID Brinzolamide (Azopt) 1% 10ML Drops.susp, 1 DROP OS BID Calcitriol (Rocaltrol) 0.5 Mcg Capsule, 0.5 MCG PO DAILY Insulin Glargine (Lantus) 1 Units/0.01 Ml Susp, 45 UNITS SC QHS Insulin Glargine (Lantus) 1 Units/0.01 Ml Susp, 65 UNITS SC DAILY Insulin Human Lispro (Humalog) 1 Units/0.01 Ml Inj, 1 DOSE SC AC PER SLIDING SCALE Losartan Potassium (Losartan Potassium) 100 Mg Tablet, 50 MG PO QHS Multivitamins (Thera M Plus Tablet) 1 Tab Tab, 1 TAB PO DAILY Prednisolone Acetate (Prednisolone Acetate 1% Opth Susp) 5 Ml Drops.susp, 1 DROP OS BID Simvastatin (Simvastatin) 40 Mg Tab, 40 MG PO QHS Sucroferric Oxyhydroxide (Velphoro) 500 Mg Tab.chew, 500 MG PO WM Torsemide (Torsemide) 100 Mg Tab, 100 MG PO DAILY dilTIAZem HCl (Diltiazem 24Hr Cd) 240 Mg Cap.er.24h, 240 MG PO DAILY Allergies Coded Allergies: acetazolamide (Verified Adverse Reaction, Severe, CONVULSIONS, 05/13/19) A-FIB/CHADSVASC A-FIB History Current/History of A-Fib/PAF?: No GME ATTESTATION GME ATTESTATION My faculty preceptor for this patient encounter was physically present during the encounter and was fully available. All aspects of the patient interview, examination, medical decision making process, and medical care plan development were reviewed and approved by the faculty preceptor. The faculty preceptor is aware and concurs with the plan as stated in the body of this note and will attest to such by his/her cosignature. ATTENDING NOTE I personally examined at 930PM and discussed the case with and agree with the plan as documented above. has been consulted. BECKY WILSON DO May 13, 2019 21:49 SILVIA GUTIERREZ MD May 13, 2019 23:58
[2019-05-13 22:10] LABS: ALBUMIN 2.9 GM/DL (3.2-5.2); BILIRUBIN,TOTAL 0.3 MG/DL (0.2-1.0); CALCIUM LEVEL 8.2 MG/DL (8.8-10.2); POTASSIUM SERUM 3.6 MEQ/L (3.5-5.1); TOTAL PROTEIN 6.6 GM/DL (6.4-8.2)
[2019-05-13] MEDS ORDERED: DEXTROSE 50% 50 ML SYRINGE IV PRN (22:15)
[2019-05-13] MEDS ORDERED: GLUCOSE 4 GM CHEW TABLET PO PRN (22:15)
[2019-05-13] MEDS ORDERED: GLUCAGON FOR INJ 1 MG VIAL (J1610) SC PRN (22:15)
[2019-05-13] MEDS: HEPARIN SOD (PORCINE) 5000 UNITS/ML VIAL SC SCH (23:21)
[2019-05-13 23:59] VITALS: BP 168/73
[2019-05-14 00:28] LABS: CK-MB VALUE MASS 4.7 NG/ML (<3.6); CPK CREATINE PHOSPHOKINASE 90 U/L (39-308); MAGNESIUM LEVEL 1.8 MG/DL (1.8-2.4); MB/CK RELATIVE INDEX 5.22 (< OR =4); TROPONIN I < 0.02 NG/ML (< 0.10)
[2019-05-14 02:58] LABS: APPEARANCE, BODY FLUID CLEAR (CLEAR); PERITONEAL DIALYSATE FL COLOR PALE YELLOW (COLORLESS); SOURCE, BODY FLUID PERITONEAL DIALYSATE
[2019-05-14 04:00] VITALS: BP_SYST 127; BP_SYST 138; BP_SYST 183; BP_DIAS 55; BP_DIAS 63; BP_DIAS 78
[2019-05-14 06:16] LABS: HEMATOCRIT 25.4 % (42.0-52.0); HEMOGLOBIN 8.4 g/dl (13.5-17.5); MEAN CORPUSCULAR HEMOGLOBIN 32.3 pg (27.0-33.0); MEAN CORPUSCULAR HGB CONC 33.1 g/dl (32.0-36.5); MEAN CORPUSCULAR VOLUME 97.7 fl (80.0-96.0); PLATELET COUNT, AUTOMATED 226 10^3/uL (150-450); WHITE BLOOD COUNT 12.8 10^3/uL (4.0-10.0)
[2019-05-14] MEDS: HEPARIN SOD (PORCINE) 5000 UNITS/ML VIAL SC SCH ×3 (06:16→22:24)
[2019-05-14] MEDS ORDERED: LOSA100T50 PO (06:45)
[2019-05-14 06:49] LABS: CALCIUM LEVEL 8.4 MG/DL (8.8-10.2); CREATININE FOR GFR 11.3 MG/DL (0.70-1.30); GLOMERULAR FILTRATION RATE 4.9 (>49); POTASSIUM SERUM 3.2 MEQ/L (3.5-5.1)
[2019-05-14] MEDS ORDERED: ROCA0.5C PO (06:50)
[2019-05-14] MEDS ORDERED: COMB0.2S OU (06:50)
[2019-05-14] MEDS ORDERED: VELP5CHW PO (06:50)
[2019-05-14] MEDS ORDERED: AZOP0.2S OS (06:50)
[2019-05-14 08:00] VITALS: BP 167/84
[2019-05-14] MEDS ORDERED: ATRO1OPD OS (08:09)
[2019-05-14] MEDS ORDERED: PREDOPD OS (08:09)
[2019-05-14] MEDS ORDERED: DILT240C61 PO (08:13)
[2019-05-14] MEDS ORDERED: PERCOCET 5MG/325MG TAB PO SCH (09:00)
[2019-05-14] MEDS ORDERED: DARBEPOETIN 100 MCG/0.5 ML *NON-DIALYSIS* SYRINGE (J0881) SC SCH (09:00)
[2019-05-14] MEDS ORDERED: POTASSIUM CHLORIDE 10 MEQ SR TABLET PO ONE (09:00)
[2019-05-14] MEDS: prednisoLONE ACET 1% OPHTH SUSP 5ML OS SCH ×2 (09:32→20:40)
[2019-05-14] MEDS: ATROPINE SULFATE 1% OP SOLN 2 ML BTL OS SCH (09:33)
[2019-05-14] MEDS: CALCITRIOL 0.25 MCG CAP (S0169) PO SCH (09:34)
[2019-05-14] MEDS: MULTIVITAMINS/MINERALS THERAP 1 TAB PO SCH (09:34)
[2019-05-14] MEDS: BRINZOLAMIDE 1 % OPHTH SUSP (AZOPT) 10ML OS SCH ×2 (09:34→20:40)
[2019-05-14] MEDS: TORSEMIDE 100 MG TAB PO SCH (09:35)
[2019-05-14] MEDS: HumaLOG INSULIN (NovoLOG) PER UNIT SC SCH ×3 (09:36→17:52)
[2019-05-14] MEDS: LEVEMIR (INSULIN DETEMIR) 1 UNITS/0.01ML SC SCH (09:36)
[2019-05-14] MEDS ORDERED: PERCOCET 5MG/325MG TAB PO PRN (10:15)
--- NOTE | 2019-05-14 10:46 | IPNPDOC ---
Subjective Date Seen The patient was seen on 05/14/19. Subjective Chief Complaint/HPI Patient sitting in a bed once to go home off as no new complaints. is at bedside General: Denies: ROS Unobtainable, Chills, Night Sweats, Fatigue, Malaise, Normal Appetite, Other Symptoms ENT: Denies: Head Aches, Ear Pain, Dysphagia, Sinus Congestion, Post Nasal Drip, Sore Throat, Epistaxis, Other Symptoms Skin: Denies: Rash, Lesions, Jaundice, Bruising, Itching, Dry, Breakdown, Nail Changes, Other Pulmonary: Denies: Dyspnea, Cough, Pleuritic Chest Pain, Other Symptoms Cardiovascular: Denies: Chest Pain, Palpitations, Orthopnea, Paroxysmal Noc. Dyspnea, Edema, Lt Headedness, Other Symptoms Gastrointestinal: Denies: Nausea, Vomiting, Abdominal Pain, Diarrhea, Constipation, Melena, Hematochezia, Other Symptoms Endocrine: Denies: Polydipsia, Polyphagia, Polyuria, Heat Intolerance, Cold Intolerance, Other Endocrine Sx Musculoskeletal: Denies: Neck Pain, Back Pain, Shoulder Pain, Arm Pain, Hand Pain, Leg Pain, Foot Pain, Joint Pain, Muscle Pain, Spasms, Other Symptoms Neurological: Denies: Weakness, Numbness, Incoordination, Change in speech, Confusion, Seizures, Other Symptoms Objective Physical Examination General Exam: Positive: Alert Eye Exam: Positive: PERRLA, Conjunctiva & lids normal ENT Exam: Positive: Atraumatic Neck Exam: Positive: Supple Chest Exam: Positive: Clear to auscultation, Normal air movement Heart Exam: Positive: Rate Normal, Normal S1, Normal S2 Abdomen Exam: Positive: Normal bowel sounds, Soft Extremity Exam: Positive: Normal pulses Skin Exam: Positive: Other skin issue (superficial abrasion on 4) Assessment /Plan Problems (1) Syncope Status: Acute Problem Text: Syncope most likely vasovagal in nature Patient is at low-risk for adverse outcome per [place] Syncope Rule. Consider idiopathic etiology. Vitals stable, EKG significant for RBBB, no ST changes. Electrolytes and Tr oponins at [facility] were negative. Repeat CBC shows WBC count of 12.8, hemoglobin of 8.4, hematocrit 25.4. Electrolytes are normal except serum potassium is slightly low. 3.2 with high BUN/creatinine secondary to end-stage renal disease and troponins are negative Head CT performed at [facility] negative. Baseline mental status without focal deficits on examination. Telemetry monitoring did not show any evidence of arrhythmias. Neurologic were also within normal limits Echocardiogram is still pending, No significant murmur on examination. Patient denies any chest pain/palpitations or shortness of breath. Patient had an echo performed in September 2017 which demonstrated mild concentric left ventricular hypertrophy with hyperdynamic wall motion. Mildly dilated left atrium with Dop pler evidence of impairment of LV diastolic dysfunction and elevated mean left atrial pressure. Normal right heart chamber sizes and motion with Doppler with signs of at least mild pulmonary hypertension. Normal IV CBC size and collapse against elevated central venous pressure at. Mild aortic valvular sclerosis and mitral annular thickening without functionally significant valvular abnormality. Since 2014, his left atrial pressure was increased but otherwise no significant change. (2) Acute on chronic renal failure Status: Acute Problem Text: Dr. Sanchez was consulted Continue the current dialysis Other recommendations as per nephrology (3) Leukocytosis (leucocytosis) Status: Acute Problem Text: Probably acute phase reaction WBC count is 12.8 today Agent is afebrile. No evidence of any infection Monitor level in a.m. Plan/VTE VTE Prophylaxis Ordered?: Yes VS, I&O, 24H, [facility] Vital Signs/I&O Vital Signs Date Time Temp Pulse Resp B/P (MAP) Pulse Ox O2 Delivery O2 Flow Rate FiO2 05/14/19 09:34 87 167/84 05/14/19 09:00 18 05/14/19 08:00 97.3 98 I&O- Last 24 Hours up to 6 AM 05/14/19 06:00 Intake Total 2100 ml Output Total 1500 ml Balance 600 ml Laboratory Data 24H LABS Laboratory Tests 2 05/13/19 21:23: Nucleated Red Blood Cells % (auto) 0.0, Anion Gap 12, Glomerular Filtration Rate 5.0L, Blood Urea Nitrogen 71H, Creatinine 11.00*H, Sodium Level 140, Potassium Level 3.6, Chloride Level 103, Carbon Dioxide Level 25, Calcium Level 8.2L, Aspartate Amino Transf (AST/SGOT) 13, Alanine Aminotransferase (ALT/SGPT) 25, Alkaline Phosphatase 120H, Total Bilirubin 0.3, Total Protein 6.6, Albumin 2.9L, Albumin/Globulin Ratio 0.78L 05/13/19 21:52: Bedside Glucose (Misc Panel) 80 05/13/19 23:55: Magnesium Level 1.8, Total Creatine Kinase 90, Creatine Kinase MB 4.7H, Creatine Kinase MB Relative Index 5.22H, Troponin I < 0.02 05/14/19 02:31: Body Fluid Source PERITONEAL DIALYSATE, Body Fluid WBC (Auto) 48H, Body Fluid RBC (Auto) < 2, Body Fluid Mononuclear Cells % Auto 93.7H, Fluid Polymorphonuclear Cell % Auto 6.3H, Peritoneal Fluid Color PALE YELLOW, Peritoneal Fluid Appearance CLEAR 05/14/19 05:39: Nucleated Red Blood Cells % (auto) 0.0, Anion Gap 11, Glomerular Filtration Rate 4.9L, Blood Urea Nitrogen 70H, Creatinine 11.30*H, Sodium Level 140, Potassium Level 3.2L, Chloride Level 102, Carbon Dioxide Level 27, Calcium Level 8.4L CBC/BMP Laboratory Tests 05/13/19 21:23 Red Blood Count 2.90 L, Mean Corpuscular Volume 97.9 H, Mean Corpuscular Hemoglobin 32.8, Mean Corpuscular Hemoglobin Concent 33.5, Red Cell Distribution Width 14.3, Calcium Level 8.2 L, Aspartate Amino Transf (AST/SGOT) 13, Alanine Aminotransferase (ALT/SGPT) 25, Alkaline Phosphatase 120 H, Total Bilirubin 0.3, Total Protein 6.6, Albumin 2.9 L 05/14/19 05:39 Red Blood Count 2.60 L, Mean Corpuscular Volume 97.7 H, Mean Corpuscular Hemoglobin 32.3, Mean Corpuscular Hemoglobin Concent 33.1, Red Cell Distribution Width 14.2, Calcium Level 8.4 L Microbiology Microbiology 05/14/19 Gram Stain - Final, Resulted 05/14/19 Body Fluid Culture, Resulted Pending HARSHIL CROCKER MD May 14, 2019 10:46
[2019-05-14 12:00] VITALS: BP 137/63
[2019-05-14] MEDS: SUCROFERRIC OXYHYDROXIDE 500MG CHEW TAB (VELPHORO) PO SCH ×2 (12:55→17:52)
[2019-05-14 14:34] LABS: PERCENT SATURATION 26.4 % (19.7-50.0)
[2019-05-14] MEDS ORDERED: SLF 3 ML SYR IV PRN (17:15)
[2019-05-14 20:00] VITALS: BP 140/66
[2019-05-14] MEDS: EYE OU SCH (20:40)
[2019-05-14] MEDS: COMBIGAN OU SCH (20:40)
--- NOTE | 2019-05-14 20:49 | CR ---
DATE OF CONSULTATION: 05/14/2019 REQUESTING PHYSICIAN: Dr. Sherry Dinero CONSULTING PHYSICIAN: Dr. Sanchez REASON FOR CONSULTATION: Management of end-stage renal disease, on peritoneal dialysis. CHIEF COMPLAINT: The patient presented to the [facility] Emergency Room after syncope. HISTORY OF PRESENT ILLNESS: Mr. Jai Lawson is a 63-year-old male with past medical history of end-stage renal disease, on peritoneal dialysis, history of hypertension, diabetes mellitus, type 2, multiple other comorbidities as mentioned below. The patient reports that he has very labile blood pressure, and his antihypertensive medications are being adjusted as outpatient. Initially he was started on losartan 100 mg daily, but after that his blood pressure was dropping too much, so his dose was decreased to 50 mg. Yesterday he was in his kitchen, and after eating his lunch he got up to turn on the TV and watch a program, and he suddenly fell down on the floor. The patient does not remember how long he was on the ground. He was alone at home. When he woke up, he had missed the program, so he feels like he was on the floor for about 30 minutes. He also hit his head when he fell down, and there was a big laceration on his forehead. The patient denies any dizziness or lightheadedness before falling. He did not lose control of bowel or bladder, and he did not bite his tongue. The patient reports that sometime in the past he was given antiseizure medications, but he was seen by neurology, and he was told by neurology that he does not need any antiseizure medicine. The patient initially presented to the [facility] Emergency Room. They do not have any nephrology service available over there, the patient was sent to [facility] for higher level of care. The patient was admitted overnight. He was started on peritoneal dialysis. There are no signs of peritonitis at this time. He is admitted under the hospitalist service. Nephrology service was called for further help in the management of this patient's peritoneal dialysis. I saw and evaluated the patient today morning at the bedside. He denies any headaches. He denies any chest pain, palpitation. He denies any fevers, cough, chills, dysuria, hematuria, or abdominal pain, and he just got his echocardiogram done today morning. PAST MEDICAL HISTORY: 1. Past medical history of end-stage renal disease, on peritoneal dialysis. 2 Diabetes mellitus, type 2. 3. Hypertension. 4. Chronic gout secondary to chronic kidney disease. 5. Diabetic peripheral neuropathy and retinopathy. 6. History of congestive heart failure (CHF) with preserved ejection fraction. 7. Obesity. PAST SURGICAL HISTORY: 1. Status post left upper arm arteriovenous (AV) fistula placement. 2. Status post peritoneal dialysis (PD) catheter placement. 3. Status post tubular implant in the right eye in 2018. 4. History of bilateral cataract surgery. ALLERGIES: He is allergic to ACETAZOLAMIDE. FAMILY HISTORY: No significant family history of end-stage renal disease requiring hemodialysis. SOCIAL HISTORY: The patient is . He lives at home with his . He denies any smoking. Denies any illicit drug abuse or alcohol abuse. REVIEW OF SYSTEMS: CONSTITUTIONAL: He denies any fevers or chills. EYES: He reports poor vision because of diabetes. ENT: Denies any dysphagia or odynophagia. CARDIOVASCULAR: Denies any chest pain or palpitation. RESPIRATORY: Denies any shortness of breath or cough. GASTROINTESTINAL: Denies any nausea or vomiting. GENITOURINARY: Denies any dysuria or hematuria. MUSCULOSKELETAL: He denies any muscle aches and pains. SKIN: He reports contusion on the forehead because of fall. Otherwise he denies any rashes. CENTRAL NERVOUS SYSTEM: He reports the syncope at home. PSYCHIATRIC: He denies any depression or anxiety. ENDOCRINE: He reports a history of diabetes mellitus, type 2. HEMATOLOGY/ONCOLOGY: He denies any easy bleeding or bruising. All other review of systems is negative. PHYSICAL EXAMINATION: GENERAL: The patient is awake, alert, oriented times three, lying in bed. No apparent distress. VITAL SIGNS: Temperature is 97.2 degrees Fahrenheit, blood pressure 137/63, pulse is 81, respiratory rate of 20, saturating 98% on room air. HEAD AND NECK: Pupils are equally round and reactive to light. He has poor vision in both eyes. There was a contusion on the forehead. Mucous membranes are moist. Neck is supple. There is no jugular venous distention (JVD). CARDIOVASCULAR: S1, S2, regular rate. No edema of the bilateral lower extremities. RESPIRATORY: Chest is clear to auscultation bilaterally. Bilateral equal air entry. No rales or rhonchi. ABDOMEN: Soft, obese. Positive bowel sounds. Peritoneal dialysis catheter exit site is clean and nontender. GENITOURINARY: Hernia is not noted. MUSCULOSKELETAL: No clubbing or cyanosis. Pulses are 2+. No edema of the extremities. CENTRAL NERVOUS SYSTEM: No focal deficit. Power is 5/5 in all extremities. LABORATORY REVIEW: CBC showed WBC 12.8, hemoglobin 8.4, platelets are 226. Peritoneal fluid cell count is 48, polymorphonuclear was 6.3%. BMP done today morning showed sodium 140, potassium 3.2, chloride 102, bicarbonate 27, BUN 70, creatinine is 11.3, calcium 8.4. Iron 48, TIBC is 182, transferrin saturation is 26.4, ferritin is 774. CURRENT INPATIENT MEDICATIONS: The patient's medications were all reviewed by me. He is currently on Azopt eyedrops, calcitriol 0.5 mcg by mouth daily, diltiazem 240 mg by mouth daily, heparin 5000 units subcutaneous every 8 hours, insulin Levemir 65 units subcutaneous daily in the morning and 45 in the evening, insulin sliding scale, Lispro, losartan 50 mg at bedtime. multivitamin one tablet by mouth daily, Percocet as needed, potassium chloride 20 mEq by mouth one dose was given today morning, Zocor 40 mg at bedtime, Velphoro 500 mg by mouth with meals, torsemide 100 mg by mouth daily ASSESSMENT: A 63-year-old male with history of end-stage renal disease, on peritoneal dialysis. History of congestive heart failure (CHF) with preserved ejection fraction, diabetes mellitus, type 2, admitted at this time after syncope. PLAN: 1. Syncope. The patient just got the echocardiogram done. CT scan did not show any acute abnormality. EKG showed right bundle branch block. He gives a remote questionable history of seizures in the past. Blood pressure is optimal with the current antihypertensive. Rest of the syncope workup will be done by primary team. There is no sign of infection in the peritoneum. 2. End-stage renal disease, on peritoneal dialysis. Peritoneal fluid cell count is within the acceptable limit. Continue current peritoneal dialysis regimen of five manual exchanges, all 1.5%. The patient uses 2.5% at home, but because of recent syncope I would increase dialysate concentration if the patient remains asymptomatic for the next 24 hours. 3. Leukocytosis. The patient has chronic persistent leukocytosis as outpatient as well. No signs of infection at this time. 4. Hypertension with end-stage renal disease. Continue current dose of diltiazem 240 mg by mouth daily, losartan 50 mg by mouth daily. 5. Chronic kidney disease, mineral bone disease. Continue current dose of Velphoro 500 mg by mouth three times a day with meals. 6. Secondary hyperparathyroidism. Continue current dose of calcitriol 0.15 mcg by mouth daily. 7. Diabetes mellitus, type 2, insulin dependent. Continue home dose of insulin Levemir 65 units in the morning, 45 units in the evening, and insulin sliding scale. 8. Chronic lower extremity edema. Continue home dose of torsemide 100 mg by mouth daily. PD regimen will be adjusted tomorrow. 9. Anemia and end-stage renal disease. Hemoglobin is 8.4, which is suboptimal. I ordered a dose of Aranesp to be given to the patient today. Iron levels are adequate. Thank you for involving me in the care of this patient. I shall be happy to follow the patient tomorrow morning.
[2019-05-14] MEDS ORDERED: HumaLOG INSULIN (NovoLOG) PER UNIT SC SCH (21:00)
[2019-05-14] MEDS ORDERED: SIMVASTATIN 40 MG TAB PO SCH (21:00)
[2019-05-14] MEDS ORDERED: EYE OS SCH (21:00)
[2019-05-14] MEDS ORDERED: LEVEMIR (INSULIN DETEMIR) 1 UNITS/0.01ML SC SCH (21:00)
[2019-05-14] MEDS ORDERED: LOSARTAN 50 MG TAB PO SCH (21:00)
[2019-05-14] MEDS ORDERED: BIMATOPROST 0.01% OS SCH (21:00)
[2019-05-14] MEDS: SLF 3 ML SYR IV SCH (22:24)
[2019-05-14 23:59] VITALS: BP 106/55
[2019-05-15] VITALS: BP_SYST 111; BP_SYST 140; BP_DIAS 56; BP_DIAS 75
[2019-05-15 04:00] VITALS: BP_SYST 154; BP_SYST 159; BP_SYST 182; BP_DIAS 58; BP_DIAS 63; BP_DIAS 75
[2019-05-15] MEDS: HEPARIN SOD (PORCINE) 5000 UNITS/ML VIAL SC SCH (05:47)
[2019-05-15] MEDS: SLF 3 ML SYR IV SCH (05:48)
[2019-05-15] MEDS: HumaLOG INSULIN (NovoLOG) PER UNIT SC SCH (07:43)
[2019-05-15] MEDS: MULTIVITAMINS/MINERALS THERAP 1 TAB PO SCH (07:44)
[2019-05-15] MEDS: LEVEMIR (INSULIN DETEMIR) 1 UNITS/0.01ML SC SCH (07:44)
[2019-05-15] MEDS: CALCITRIOL 0.25 MCG CAP (S0169) PO SCH (07:45)
[2019-05-15] MEDS: TORSEMIDE 100 MG TAB PO SCH (07:45)
[2019-05-15 07:46] VITALS: BP 118/68
[2019-05-15] MEDS: ATROPINE SULFATE 1% OP SOLN 2 ML BTL OS SCH (07:49)
[2019-05-15] MEDS: prednisoLONE ACET 1% OPHTH SUSP 5ML OS SCH (07:49)
[2019-05-15] MEDS: EYE OU SCH (07:49)
[2019-05-15] MEDS: COMBIGAN OU SCH (07:49)
[2019-05-15] MEDS: SUCROFERRIC OXYHYDROXIDE 500MG CHEW TAB (VELPHORO) PO SCH (07:50)
[2019-05-15] MEDS: BRINZOLAMIDE 1 % OPHTH SUSP (AZOPT) 10ML OS SCH (07:50)
[2019-05-15 08:00] VITALS: BP 124/60
--- NOTE | 2019-05-15 08:05 | ECHO ---
DATE OF STUDY: 05/14/2019 REFERRING PHYSICIAN: Dr. Sherry Dinero INDICATION: Syncope. HEIGHT: 178 cm. WEIGHT: 104 kg. DIMENSIONS: IVS: 1.7 LV: 4.3 LVPW: 1.7 LA: 4.2 Aorta: 3.6 IVC: 1.7 Mitral E wave velocity: 86 A wave: 92 E prime septal: 5.3 E prime lateral: 6.1 FINDINGS: The study is of acceptable technical quality even though apical views were rather limited, especially for endocardial definition. Left ventricle is normal size and hyperdynamic LV systolic function. I estimate left ventricle ejection fraction (LVEF) around 70-75%. Moderate left ventricular hypertrophy is noted. Right ventricle is normal size. Left atrium is at least mildly enlarged. Right atrium appears grossly normal. Aortic valve is sclerotic, but it has three cusps and preserved mobility. There are minimal degenerative abnormalities of the mitral valve, but mobility is preserved. Tricuspid valve appears normal. Pulmonic valve was not seen. Trivial pericardial effusion is noted. Inferior vena cava is normal size and appropriately collapses with respiration indicative of normal central venous pressure. Aortic root appears normal. Aortic arch was not seen. Abdominal aorta appears normal. There is a small amount of ascites seen adjacent to the liver. Doppler interrogation reveals no significant aortic, mitral or tricuspid valvular disease. Mitral inflow pattern and tissue Doppler imaging of the mitral annulus revealed grade 1 diastolic dysfunction. CONCLUSIONS: 1. Study is of acceptable technical quality. 2. Normal LV size with moderate LVH and preserved LV systolic function. Grade 1 diastolic dysfunction. 3. No significant valvular disease. 4. Likely normal central venous pressure. 5. Unable to estimate pulmonary artery pressure, but no signs of pulmonary hypertension. 6. Trace pericardial effusion. 7. Ascites is apparent around the liver. COMMENT: Subacute bacterial endocarditis (SBE) prophylaxis is not recommended. The study does not provide obvious explanation for syncopal event.
[2019-05-15 08:18] LABS: BASO # 0.1 10^3/uL (0.0-0.2); BASO % 0.4 % (0.0-1.0); EOS # 0.5 10^3/uL (0.0-0.5); EOS % 3.9 % (0.0-3.0); HEMATOCRIT 28.3 % (42.0-52.0); HEMOGLOBIN 9.4 g/dl (13.5-17.5); LYMPH # 2.3 10^3/uL (1.5-5.0); LYMPH % 19.7 % (24.0-44.0); MEAN CORPUSCULAR HEMOGLOBIN 32.6 pg (27.0-33.0); MEAN CORPUSCULAR HGB CONC 33.2 g/dl (32.0-36.5); MEAN CORPUSCULAR VOLUME 98.3 fl (80.0-96.0); MONO # 0.9 10^3/uL (0.0-0.8); MONO % 7.8 % (0.0-5.0); NEUTROPHILS # 7.9 10^3/uL (1.5-8.5); NEUTROPHILS % 67.6 % (36.0-66.0); PLATELET COUNT, AUTOMATED 240 10^3/uL (150-450); RED BLOOD COUNT 2.88 10^6/uL (4.30-6.10); WHITE BLOOD COUNT 11.7 10^3/uL (4.0-10.0)
[2019-05-15 09:00] LABS: ALBUMIN 2.8 GM/DL (3.2-5.2); BILIRUBIN,TOTAL 0.3 MG/DL (0.2-1.0); CALCIUM LEVEL 8.6 MG/DL (8.8-10.2); CREATININE FOR GFR 10.9 MG/DL (0.70-1.30); GLOMERULAR FILTRATION RATE 5.1 (>49); POTASSIUM SERUM 3.7 MEQ/L (3.5-5.1); TOTAL PROTEIN 6.6 GM/DL (6.4-8.2)
--- NOTE | 2019-05-15 11:46 | DS.PDOC ---
Discharge Summary General Date of Admission May 13, 2019 at 20:05 Date of Discharge 05/15/2019 Attending Physician: HARSHIL CROCKER MD Discharge Summary PROCEDURES PERFORMED DURING STAY: None. ADMITTING DIAGNOSES: 1. Syncope. DISCHARGE DIAGNOSES: 1. Vasovagal Syncope, end-stage renal disease On peritoneal dialysis, leukocytosis COMPLICATIONS/CHIEF COMPLAINT: Syncope Esrd. HISTORY OF PRESENT ILLNESS: Patient is a 63-year-old male, past medical history significant for end-stage renal disease on peritoneal dialysis, diabetes mellitus, diabetic neuropathy, diabetic retinopathy, hypertension, chronic cervical disc disease, who presents to the hospital as a direct admission from [facility]. Patient presented to [facility] this afternoon after experiencing a syncopal episode at home. Patient states that he was sitting comfortably in his kitchen at home eating lunch. He then intended to stand up and walk towards the living room to change the television channel. Patient reports being unsure of what happened next. Patient reports loss of consciousness coming to approximately 30-40 minutes thereafter. Patient denies any bladder or bowel incontinence, no nausea or vomiting. Patient does have baseline dizziness and some difficulty ambulating secondary to significant diabetic neuropathy for which he often uses a cane. Patient denied any postictal state or confusion. He denied any resulting pain in his head and neck back or shoulders. Upon presentation to the [facility] emergency department, patient was noted to have a single contusion on his forehead. Vitals were found to be stable with a blood pressure 145/58, heart rate of 77, respiratory rate of 16, oxygen saturation 99% on room air and a temperature of 98.3F. An EKG was performed patient was found to be in sinus rhythm at a rate of 76 with a right bundle branch block. Comparison with EKG performed on 10/07/17 the patient was in the emergency department also demonstrates some right ventricular conduction delay.CBC evaluation demonstrated a white cell count of 15.1 predominantly granulocytes. PT and INR within normal limits. Lactic acid 1.4, TSH of 2.55. Patient's BUNs measured at 66 and creatinine of 10.6 consistent with his end- stage renal disease. Alkaline phosphatase was noted to be minimally elevated at 125.. HOSPITAL COURSE: Patient presented with symptoms of syncope, which is most likely vasovagal in nature Patient is at low-risk for adverse outcome per [place] Syncope Rule. Consider idiopathic etiology. Vitals stable, EKG significant for RBBB, no ST changes. Electrolytes and Troponins at [facility] were negative. Repeat CBC shows WBC count of 12.8, hemoglobin of 8.4, hematocrit 25.4. Electrolytes are normal except serum potassium is slightly low. 3.2 with high BUN/creatinine secondary to end-stage renal disease and troponins are negative Head CT performed at [facility] negative. Baseline mental status without focal deficits on examination. Telemetry monitoring did not show any evidence of arrhythmias. Neurologic were also within normal limits Echocardiogram is still pending, No significant murmur on examination. Patient denies any chest pain/palpitations or shortness of breath. Patient had an echo performed in September 2017 which demonstrated mild concentric left ventricular hypertrophy with hyperdynamic wall motion. Mildly dilated left atrium with Doppler evidence of impairment of LV diastolic dysfunction and elevated mean left atrial pressure. Normal right heart chamber sizes and motion with Doppler with signs of at least mild pulmonary hypertension. Normal IV CBC size and collapse against elevated central venous pressure at. Mild aortic valvular sclerosis and mitral annular thickening without functionally significant valvular abnormality. Since 2014, his left atrial pressure was increased but otherwise no significant change. Patient's workup including carotid Dopplers and repeat echocardiogram are ess entially unremarkable Patient was counseled regarding awareness about a vasovagal symptoms and advised to follow with PCP in one week. Regarding patient's acute on chronic renal failure, he was seen by Dr. de la paz Patient will continue peritoneal dialysis as previously Patient also found to have a leukocytosis on admission which most likely was acute phase reactant as his repeat WBC count was within normal range DISCHARGE MEDICATIONS: Please see below. ALLERGIES: Please see below. PHYSICAL EXAMINATION ON DISCHARGE: VITAL SIGNS: Please see below. GENERAL: Within normal limits HEENT: PERRLA, extra ocular muscles intact NECK: Supple CARDIOVASCULAR EXAMINATION: S1, S2, regular RESPIRATORY EXAMINATION: Clear to A&P ABDOMINAL EXAMINATION: Soft, nontender, bowel sounds present EXTREMITIES: No clubbing, cyanosis, edema SKIN: Normal NEUROLOGICAL EXAMINATION: No focal motor sensory deficit PSYCHIATRIC EXAMINATION: Normal LABORATORY DATA: Please see below. IMAGING: Echocardiogram report:CONCLUSIONS: 1. Study is of acceptable technical quality. 2. Normal LV size with moderate LVH and preserved LV systolic function. Grade 1 diastolic dysfunction. 3. No significant valvular disease. 4. Likely normal central venous pressure. 5. Unable to estimate pulmonary artery pressure, but no signs of pulmonary hypertension. 6. Trace pericardial effusion. 7. Ascites is apparent around the liver. PROGNOSIS: Good ACTIVITY: As tolerated. DIET: Renal diet DISCHARGE PLAN: Follow with PCP in one week DISPOSITION: Home. DISCHARGE INSTRUCTIONS: 1. As per discharge instructions. ITEMS TO FOLLOWUP ON ON OUTPATIENT: 1. Follow with PCP in one week. DISCHARGE CONDITION: Stable. TIME SPENT ON DISCHARGE: 40 minutes. Vital Signs/I&Os Vital Signs Date Time Temp Pulse Resp B/P (MAP) Pulse Ox O2 Delivery O2 Flow Rate FiO2 05/15/19 08:00 97.5 83 18 124/60 (81) 97 I&O- Last 24 Hours up to 6 AM 05/15/19 06:00 Intake Total 8670 ml Output Total 8385 ml Balance 285 ml Laboratory Data Labs 24H Laboratory Tests 2 05/14/19 17:41: Bedside Glucose (Misc Panel) 189H 05/14/19 20:24: Bedside Glucose (Misc Panel) 217H 05/15/19 08:07: Immature Granulocyte % (Auto) 0.6, White Blood Count 11.7H, Red Blood Count 2.88L, Hemoglobin 9.4L, Hematocrit 28.3L, Mean Corpuscular Volume 98.3H, Mean Corpuscular Hemoglobin 32.6, Mean Corpuscular Hemoglobin Concent 33.2, Red Cell Distribution Width 13.9, Platelet Count 240, Neutrophils (%) (Auto) 67.6H, Lymphocytes (%) (Auto) 19.7L, Monocytes (%) (Auto) 7.8H, Eosinophils (%) (Auto) 3.9H, Basophils (%) (Auto) 0.4, Neutrophils # (Auto) 7.9, Lymphocytes # (Auto) 2.3, Monocytes # (Auto) 0.9H, Eosinophils # (Auto) 0.5, Basophils # (Auto) 0.1, Nucleated Red Blood Cells % (auto) 0.0, Anion Gap 10, Glomerular Filtration Rate 5.1L, Blood Urea Nitrogen 60H, Creatinine 10.90*H, Sodium Level 139, Potassium Level 3.7, Chloride Level 101, Carbon Dioxide Level 28, Calcium Level 8.6L, Aspartate Amino Transf (AST/SGOT) 14, Alanine Aminotransferase (ALT/SGPT) 24, Alkaline Phosphatase 118H, Total Bilirubin 0.3, Total Protein 6.6, Albumin 2.8L, Albumin/Globulin Ratio 0.74L CBC/BMP Laboratory Tests 10/2/19 08:07 Red Blood Count 2.88 L, Mean Corpuscular Volume 98.3 H, Mean Corpuscular Hemoglobin 32.6, Mean Corpuscular Hemoglobin Concent 33.2, Red Cell Distribution Width 13.9, Neutrophils (%) (Auto) 67.6 H, Lymphocytes (%) (Auto) 19.7 L, Monocytes (%) (Auto) 7.8 H, Eosinophils (%) (Auto) 3.9 H, Basophils (%) (Auto) 0.4, Neutrophils # (Auto) 7.9, Lymphocytes # (Auto) 2.3, Monocytes # (Auto) 0.9 H, Eosinophils # (Auto) 0.5, Basophils # (Auto) 0.1, Calcium Level 8.6 L, Aspartate Amino Transf (AST/SGOT) 14, Alanine Aminotransferase (ALT/SGPT) 24, Alkaline Phosphatase 118 H, Total Bilirubin 0.3, Total Protein 6.6, Albumin 2.8 L FSBS Laboratory Tests Test 05/14/19 17:41 05/14/19 20:24 Range/Units Bedside Glucose (Misc Panel) 189 217 80-115 MG/DL Microbiology Microbiology 05/14/19 Gram Stain - Final, Resulted 05/14/19 Body Fluid Culture, Resulted Pending Discharge Medications Scheduled Atropine Sulfate (Atropine Sulfate) 1% 2ML Drops, 1 DROP OS DAILY, (Reported) Bimatoprost (Lumigan) 50 Drop/2.5 Ml Karla, 1 DROP OS QHS, (Reported) Brimonidine Tartrate/Timolol (Combigan 0.2%-0.5% Eye Drops) 5 Ml Drops, 1 DROP OU BID, (Reported) Brinzolamide (Azopt) 1% 10ML Drops.susp, 1 DROP OS BID, (Reported) Calcitriol (Rocaltrol) 0.5 Mcg Capsule, 0.5 MCG PO DAILY, (Reported) Insulin Glargine (Lantus) 1 Units/0.01 Ml Susp, 45 UNITS SC QHS, (Reported) Insulin Glargine (Lantus) 1 Units/0.01 Ml Susp, 65 UNITS SC DAILY, (Reported) Insulin Human Lispro (Humalog) 1 Units/0.01 Ml Inj, 1 DOSE SC AC, (Reported) PER SLIDING SCALE Losartan Potassium (Losartan Potassium) 100 Mg Tablet, 50 MG PO QHS, (Reported) Multivitamins (Thera M Plus Tablet) 1 Tab Tab, 1 TAB PO DAILY, (Reported) Prednisolone Acetate (Prednisolone Acetate 1% Opth Susp) 5 Ml Drops.susp, 1 DROP OS BID, (Reported) Simvastatin (Simvastatin) 40 Mg Tab, 40 MG PO QHS, (Reported) Sucroferric Oxyhydroxide (Velphoro) 500 Mg Tab.chew, 500 MG PO WM, (Reported) Torsemide (Torsemide) 100 Mg Tab, 100 MG PO DAILY, (Reported) dilTIAZem HCl (Diltiazem 24Hr Cd) 240 Mg Cap.er.24h, 240 MG PO DAILY, (Reported) Allergies Coded Allergies: acetazolamide (Verified Adverse Reaction, Severe, CONVULSIONS, 05/13/19) HARSHIL CROCKER MD May 15, 2019 11:46
--- NOTE | 2019-05-15 12:47 | IPN ---
DATE OF SERVICE: 05/15/2019 SUBJECTIVE: The patient was seen and examined the bedside today morning. He is afebrile, hemodynamically stable. He got the echocardiogram done yesterday, which just showed left ventricular ejection fraction (LVEF) around 60% to 70% with diastolic dysfunction. He is hemodynamically stable. He denies any more episodes of dizziness or lightheadedness. OBJECTIVE: Vital signs: Temperature is 97.5 degrees Fahrenheit, blood pressure 124/60, pulse is 83, respiratory rate of 18, saturating 97% on room air. The patient does have orthostatic hypotension. His blood pressure drops from 180 to 160 on standing up. Intake and output: The patient's ultrafiltration with peritoneal dialysis is 500 mL since overnight, and he made only 125 mL of urine since overnight. PHYSICAL EXAMINATION: General: The patient is awake, alert, oriented times three, laying in bed in no apparent distress. Head and neck examination: The patient has a laceration on the forehead. Mucous membranes are moist. Neck is supple. There is no jugular venous distention (JVD). Cardiovascular: S1, S2, regular rate. No edema of the bilateral lower extremities. Respiratory: Chest is clear to auscultation bilaterally. Bilateral equal air entry. No rales or rhonchi. Abdomen: Soft, positive bowel sounds. Nontender. Peritoneal dialysis (PD) catheter exit site is clean. Musculoskeletal: No clubbing or cyanosis. Pulses are 2+. Central nervous system (MATERIALS BUYER): No focal deficit. Power is 5/5 in all extremities. LABORATORY REVIEW: Complete blood count (CBC) showed a WBC 11.7, hemoglobin 9.4, platelets are 240. Basic metabolic profile (BMP) showed sodium 139, potassium 3.7, chloride 101, bicarbonate 28, BUN 60, creatinine is 10.9, calcium 8.6, albumin is 2.8. MICROBIOLOGY: Fluid Gram stain and culture is negative. 2D echocardiogram: The patient got the echocardiogram done yesterday, which showed ventricular ejection fraction of around on 70% to 75%, grade 1 diastolic dysfunction, no significant valvular disease. CURRENT INPATIENT MEDICATIONS: The patient's medications were all reviewed by me. There is no change in the medications today as compared with yesterday. He continues to be on diltiazem 240 mg by mouth daily and losartan 50 mg nightly. I am stopping the torsemide for now. ASSESSMENT AND PLAN: 1. End-stage renal disease, on peritoneal dialysis. The patient was getting all 1.5% exchanges. However, he is not getting much ultrafiltration (UF) with that. When he goes home, he would resume his cycler on 2.5% peritoneal dialysate. 2. Syncope. All the workup so far is negative. He does have orthostatic drop in blood pressures. I would avoid aggressively managing his blood pressure. Continue current dose of diltiazem and losartan. 3. Lower extremity edema. The patient does not get much urine output. I am going to stop the torsemide for now. Continue the fluid management with peritoneal dialysis only. 4. Anemia in end-stage renal disease. Hemoglobin is stable and improving. Rest of the anemia management will be done as outpatient. DISPOSITION: It is okay to discharge the patient from nephrology standpoint. He would followup at nephrology service as outpatient dialysis center.
== END 2019-05-15 11:47 | disposition home or self-care (01) | DRG 312 ==
LOC: M ED INP 20:05 → M PCU 20:06
PROVIDERS: ADMIT Internal Medicine; ATTEND Internal Medicine
PROC: 3E1M39Z Irrigation of Peritoneal Cavity using Dialysate, Percutaneous Approach (ICD-10-PCS; principal; 2019-05-13)
DX: R55 Syncope and collapse (principal); N18.6 End stage renal disease; I13.2 Hypertensive heart and chronic kidney disease with heart failure and with stage 5 chronic kidney disease, or end stage renal disease; I50.32 Chronic diastolic (congestive) heart failure; N17.9 Acute kidney failure, unspecified; N25.81 Secondary hyperparathyroidism of renal origin; D72.829 Elevated white blood cell count, unspecified; D63.1 Anemia in chronic kidney disease; I27.20 Pulmonary hypertension, unspecified; E11.22 Type 2 diabetes mellitus with diabetic chronic kidney disease; E11.40 Type 2 diabetes mellitus with diabetic neuropathy, unspecified; E11.319 Type 2 diabetes mellitus with unspecified diabetic retinopathy without macular edema; E66.9 Obesity, unspecified; Z98.41 Cataract extraction status, right eye; Z98.42 Cataract extraction status, left eye; Z99.2 Dependence on renal dialysis; Z68.31 Body mass index [BMI] 31.0-31.9, adult

== ENCOUNTER → 2019-06-25 | Outpatient (REF) | payer MEDICARE ==
[~2019-06-25] MED LIST changes: +ATRO1OPD OS; +AZOP0.2S OS; +COMB0.2S OU; +DILT240C83 PO; +LOSA100T50 PO; +PREDOPD OS; +ROCA0.5C PO; +VELP5CHW PO
== END ==
LOC: M LAB REF 13:30
PROVIDERS: ATTEND Podiatrist
DX: L03.031 Cellulitis of right toe (principal); M79.674 Pain in right toe(s)

== ENCOUNTER → 2019-07-30 | Outpatient (CLI) | payer MEDICARE ==
[~2019-07-30] MED LIST changes: -SIMV40TA2 PO; +SIMV40TA20 PO
--- NOTE | 2019-07-30 14:15 | REP ---
Bilateral lower extremity arterial Doppler ultrasound: History: Peripheral vascular disease. Wound in the right toe. Findings: Ankle brachial indices could not be obtained on either side due to noncompressible vessels and left-sided fistula. Triphasic and biphasic waveforms are noted on Doppler tracings throughout the lower extremities except distally were monophasic waveforms are seen in the distal anterior and posterior tibial arteries bilaterally. Possible mild stenosis in the left tibioperoneal trunk. Otherwise negative. Fairly extensive vascular wall calcification is seen. Right lower extremity arterial Doppler velocity chart: CF A 93 cm/S Profunda 64 Proximal SFA 87 Mid SFA 77 Distal SFA 61 Popliteal 81 Proximal AT A 95 Tibioperoneal trunk 88 Proximal LACTATION SPECIALIST 64 Distal LACTATION SPECIALIST 62 Distal AT A 55 Left lower extremity arterial Doppler velocity chart: CF A 106 cm/S Profunda 70 Proximal SFA 85 Mid SFA 56 Distal SFA 57 Popliteal 46 Proximal AT A 41 Tibioperoneal trunk 115 Proximal LACTATION SPECIALIST 41 Distal LACTATION SPECIALIST 32 Distal AT A 76 Electronically Signed by Sheldon Bhandari MD 07/30/2019 02:07 P
== END ==
LOC: M RAD 12:06
PROVIDERS: ATTEND Podiatrist Foot & Ankle Surgery
DX: I73.9 Peripheral vascular disease, unspecified (principal)

== ENCOUNTER → 2019-08-20 | Outpatient (POV) | payer MEDICARE ==
[~2019-08-20] VITALS: Ht 177.8 cm; Wt 101.8 kg
[2019-08-20 16:00] VITALS: BP 145/60
--- NOTE | 2019-08-21 11:20 | IRCOV ---
[facility] IR Consult Office Visit IR Consult Office Visit DATE: Aug 20, 2019 REASON FOR CONSULTATION/CHIEF COMPLAINT: Nonhealing right toe wound. HISTORY OF PRESENT ILLNESS: 63-year-old male with diabetes and renal failure presents with nonhealing right big toe ulcer for 2 months. Currently under the care of podiatry. Patient denies pain in the legs. Patient denies intermittent claudication or rest pain. There is diabetic neuropathy with numbness and tingl ing in the right leg. No chest pains or shortness of breath. No paroxysmal nocturnal dyspnea or orthopnea. No fevers or chills. No prior angiograms of the leg and no prior stenting. ALLERGIES: Please see below. HOME MEDICATIONS: Please see below. PAST MEDICAL HISTORY: 1. Diabetes 2. Renal failure PAST SURGICAL HISTORY: Noncontributory FAMILY HISTORY: Lives with . Independent and self caring. SOCIAL HISTORY: Nonsmoker. No alcohol or drugs. REVIEW OF SYSTEMS: Otherwise negative PHYSICAL EXAMINATION: VITAL SIGNS: Please see below. GENERAL APPEARANCE: Appears well. Comfortable at rest. HEENT: No scleral icterus. RESPIRATORY: Symmetric breath sounds. CARDIOVASCULAR: Normal rate. ABDOMEN: Protuberant. Nontender. EXTREMITIES: Right lower extremity: Color normal. Warm to touch. Edema to the knees. Femoral pulse 2+ popliteal pulse 2+ DP PT - nonhealing right toe ulcer. Motor 5 out of 5. Left lower; color normal, warm to touch. Edema to knees. Femoral pulse 2+ popliteal pulse 2+ DP PT negative. No ulcers. No gangrene. NEUROLOGICAL: Alert and oriented. PSYCHIATRIC: Appropriate to circumstance. LABORATORY DATA: 08/20/2019 hemoglobin 10.5 hematocrit 32.9 WBC 11.8 platelets 296 INR 1.06 sodium 137 potassium 4.1 BUN 84 creatinine 11.9 Imaging: I personally reviewed the arterial ultrasound lower extremity from July 2019. Patent common femoral, SFA and popliteal artery. Monophasic waveforms below his knee. ASSESSMENT/PLAN: 63 diabetic male with nonhealing right big toe ulcer and abnormal below-knee runoff on ultrasound. I agree patient would benefit from diagnostic angiogram and intervention at the same time if appropriate. We'll schedule the patient for this procedure. I spent 30 minutes in consultation with the patient. Thank you for this referral. Cc Dr. Logan Buck Allergies Coded Allergies: acetazolamide (Verified Adverse Reaction, Severe, CONVULSIONS, 05/13/19) Home Medications Scheduled Atropine Sulfate (Atropine Sulfate), 1 DROP OS DAILY, (Reported) Bimatoprost (Lumigan), 1 DROP OS QHS, (Reported) Brimonidine Tartrate/Timolol (Combigan 0.2%-0.5% Eye Drops), 1 DROP OU BID, (Reported) Brinzolamide (Azopt), 1 DROP OS BID, (Reported) Calcitriol (Rocaltrol), 0.5 MCG PO DAILY, (Reported) Insulin Glargine (Lantus), 45 UNITS SC QHS, (Reported) Insulin Glargine (Lantus), 65 UNITS SC DAILY, (Reported) Insulin Human Lispro (Humalog), 1 DOSE SC AC, (Reported) Losartan Potassium (Losartan Potassium), 50 MG PO QHS, (Reported) Multivitamins (Thera M Plus Tablet), 1 TAB PO DAILY, (Reported) Prednisolone Acetate (Prednisolone Acetate 1% Opth Susp), 1 DROP OS BID, (Reported) Simvastatin (Simvastatin), 40 MG PO QHS, (Reported) Sucroferric Oxyhydroxide (Velphoro), 500 MG PO WM, (Reported) Torsemide (Torsemide), 100 MG PO DAILY, (Reported) dilTIAZem HCl (Diltiazem 24Hr Cd), 240 MG PO DAILY, (Reported) VS, I&O, 24H, Fishbone Vital Signs/I&O Vital Signs Date Time Temp Pulse Resp B/P (MAP) Pulse Ox O2 Delivery O2 Flow Rate FiO2 08/20/19 16:00 97.0 87 16 145/60 (88) 99 Room Air NEY CONLEY MD Aug 21, 2019 11:20
== END ==
LOC: M IRPOV 15:39
PROVIDERS: ATTEND Radiology Diagnostic Radiology
DX: I70.213 Atherosclerosis of native arteries of extremities with intermittent claudication, bilateral legs (principal)

== ENCOUNTER → 2019-08-20 | Outpatient (CLI) | payer MEDICARE ==
[2019-08-20 15:06] LABS: BASO # 0.1 10^3/uL (0.0-0.2); BASO % 0.7 % (0.0-1.0); EOS # 0.4 10^3/uL (0.0-0.5); EOS % 3.6 % (0.0-3.0); HEMATOCRIT 32.9 % (42.0-52.0); HEMOGLOBIN 10.5 g/dl (13.5-17.5); LYMPH # 2.1 10^3/uL (1.5-5.0); LYMPH % 18.1 % (24.0-44.0); MEAN CORPUSCULAR HEMOGLOBIN 31.9 pg (27.0-33.0); MEAN CORPUSCULAR HGB CONC 31.9 g/dl (32.0-36.5); MONO # 1.2 10^3/uL (0.0-0.8); MONO % 10.3 % (0.0-5.0); NEUTROPHILS # 7.9 10^3/uL (1.5-8.5); NEUTROPHILS % 66.9 % (36.0-66.0); PLATELET COUNT, AUTOMATED 296 10^3/uL (150-450); RED BLOOD COUNT 3.29 10^6/uL (4.30-6.10); WHITE BLOOD COUNT 11.8 10^3/uL (4.0-10.0)
[2019-08-20 15:17] LABS: INR 1.06; PROTHROMBIN TIME 13.5 SECONDS (11.8-14.0)
[2019-08-20 15:18] LABS: PARTIAL THROMBOPLASTIN TIME 31.6 SECONDS (25.0-38.4)
[2019-08-20 15:51] LABS: CALCIUM LEVEL 8.2 MG/DL (8.8-10.2); CREATININE FOR GFR 11.9 MG/DL (0.70-1.30); GLOMERULAR FILTRATION RATE 4.6 (>49); POTASSIUM SERUM 4.1 MEQ/L (3.5-5.1)
== END ==
LOC: M LAB 14:37
PROVIDERS: ATTEND Surgery Vascular Surgery
DX: Z01.818 Encounter for other preprocedural examination (principal); I70.213 Atherosclerosis of native arteries of extremities with intermittent claudication, bilateral legs; D69.8 Other specified hemorrhagic conditions
CPT/HCPCS: 36415; 80048; 85025; 85610; 85730; G0463

== ENCOUNTER → 2019-08-23 | Outpatient (CLI) | payer MEDICARE ==
[~2019-08-23] MED LIST changes: +HEPARIN 1,000 UNITS/ML 10ML VIAL (FOR RADIOLOGY& DIALYSIS ONLY) As Ordered ONE; +ISOVUE-300 61% 50ML VIAL (Q9967) As Ordered ONE; +LIDOCAINE 1% MDV 20ML VIAL As Ordered ONE; +MIDAZOLAM INJ 2 MG/2 ML VIAL (J2250) As Ordered ONE; +diphenhydrAMINE INJ 50MG/ML VIAL (J1200) As Ordered ONE; +fentaNYL 100 MCG/2 ML INJECTION (J3010) As Ordered ONE
--- NOTE | 2019-08-23 13:22 | POST-OPPD ---
Postoperative Procedure Note Date Of Procedure: Aug 23, 2019 Time Of Procedure: 13:21 PREOPERATIVE DIAGNOSIS: PAD POSTOPERATIVE DIAGNOSIS: same FINDINGS: occluded AT peroneal and PT right leg PROCEDURE: angioplasty PT AT and peroneal. SURGEON: shanna ANESTHESIA: mod sed ESTIMATED BLOOD LOSS: < 5 ml COMPLICATIONS: none POSTOPERATIVE CONDITION: stable NEY CONLEY MD Aug 23, 2019 13:22
--- NOTE | 2019-08-23 16:38 | REP ---
IR right leg angiogram. IR Selective right iliac artery catheterization. IR Selective right common femoral artery catheterization. IR selective right superficial femoral artery catheterization. IR super selective right posterior tibial artery catheterization. IR super selective peroneal artery catheterization. IR super selective posterior tibial artery angioplasty. IR super selective peroneal artery angioplasty. IR super selective anterior tibial artery recanalization. IR moderate sedation. Clinical Information: Non healing right big toe wound. Physician: Dr Carbone.Referring physician Dr. Buck. Procedure: The patient was advised of the benefits, risks, and alternatives of the procedure and informed consent was obtained.A time out was performed with verification of the patient's name, MRN, site of procedure, and type of procedure to be performed. The patient was positioned in the supine position on the angiographic table. The site was prepped and draped in the usual sterile fashion.Moderate sedation was performed by the physician including the presence of an independent trained observer who assisted in monitoring the patient's level of consciousness and physiological status. Following the administration of Fentanyl and Versed, the physician spent 90 minutes of continuous [id number] time with the patient. A stationary equipment mechanic radiograph reveals no gross abnormality. The left femoral artery was accessed with a micropuncture kit. A MaestroDev wire was advanced into the aorta. The micropuncture sheath was exchanged over the wire for a a 6-Belarusian vascular sheath. A 5-Belarusian flush catheter was advanced over the wire and used to catheterize the abdominal aorta. A pelvic arteriogram was performed. This demonstrates patent right common iliac, external iliac, internal iliac and right common femoral arteries. A Glidewire was advanced through the flush catheter and under fluoroscopy guidance was used to gain up and over access into the right external iliac artery. The flush catheter was exchanged over the wire for a glide cath. The glide cath in conjunction with a Glidewire was used to catheterize the right common femoral artery. A right leg angiogram was performed from this location. This demonstrates patent right superficial femoral artery and profunda femoris. An angiogram further down the leg was performed and this demonstrates patent mid and distal superficial femoral artery and patent popliteal artery. A below-knee runoff arteriogram was performed and this demonstrates patent proximal anterior tibial artery. Angiogram further down the leg demonstrates occluded anterior tibial, peroneal and posterior tibial artery. Heparin was administered. The micro catheter and micro wire were advanced through the sheath and used to super selectively catheterize the mid posterior tibial artery. A 2 x 220 mm angioplasty balloon was advanced over the wire under fluoroscopy guidance and used to angioplasty the tibioperoneal trunk, proximal and mid posterior tibial artery. The balloon was deflated and a follow-up arteriogram demonstrates patent proximal and mid right posterior tibial artery. The 2 mm balloon catheter was removed over the wire and a micro catheter was advanced over the wire. The micro catheter in conjunction with a micro wire was used to catheterize the distal posterior tibial artery into the right foot under fluoroscopy guidance. The catheter was removed over the wire. A 1.5 x 120 mm angioplasty balloon catheter was advanced over the wire under fluoroscopy guidance into the distal posterior tibial artery and arch. This was used to angioplasty the distal posterior tibial artery, into the right foot. The balloon was deflated. A follow-up arteriogram demonstrates flow into the right foot through the posterior tibial artery. The catheter was retracted to the tibioperoneal trunk and in conjunction with a micro wire was used to catheterize the peroneal artery. Injection of contrast confirmed intraluminal location in the peroneal artery. The 1.5 x 120 mm angioplasty balloon was used to angioplasty the proximal, mid and distal peroneal artery under fluoroscopy guidance. The balloon was deflated. The catheter was retracted to the popliteal artery and in conjunction with a wire was used to recanalized the anterior tibial artery. The catheter was then removed over the wire. A follow-up arteriogram was performed which demonstrates flow in the popliteal artery, anterior tibial artery, peroneal artery and posterior tibial artery all the way into the foot. The long sheath was exchanged over the wire for a short sheath and wire was removed. A 6-Belarusian Mynx device was used to close the groin arteriotomy and the sheath was removed. Hemostasis achieved. A sterile dressing was applied to the site. Patient tolerated the procedure well and was transferred to PRU in stable condition. Complications: None. Estimated blood loss: Less than 5 ml. Impression: 1. Right leg angiogram demonstrates anterior tibial, peroneal and posterior tibial occlusion. 2. Successful three-vessel recanalization including posterior tibial and peroneal artery angioplasty. Successful recanalization of anterior tibial artery. 3. Patient to follow up in IR clinic in 1 month time. Thank you for this referral. Electronically Signed by Akua Carbone MD 08/23/2019 04:35 P
[2019-08-23 17:00] VITALS: BP 194/86
== END ==
LOC: M IRPRO 09:02
PROVIDERS: ATTEND Radiology Diagnostic Radiology
DX: I70.235 Atherosclerosis of native arteries of right leg with ulceration of other part of foot (principal)
CPT/HCPCS: 37228; 37232; 75710; 99152; 99153; C1725; C1729; C1760; C1769; C1887; C1894; J1200; J2250; J3010; Q9967

== ENCOUNTER 2019-09-09 10:25 | Inpatient (IN) | payer MEDICARE ==
[~2019-09-09] VITALS: Ht 177.8 cm; Wt 98.4 kg
[~2019-09-09 10:25] MED LIST changes: +BENA40TA5 PO; -BENA40TA7 PO; -BIMA01SOL OS; +BIMA01SOL OU; -HEPARIN 1,000 UNITS/ML 10ML VIAL (FOR RADIOLOGY& DIALYSIS ONLY) As Ordered ONE; -ISOVUE-300 61% 50ML VIAL (Q9967) As Ordered ONE; -LIDOCAINE 1% MDV 20ML VIAL As Ordered ONE; -MIDAZOLAM INJ 2 MG/2 ML VIAL (J2250) As Ordered ONE; -diphenhydrAMINE INJ 50MG/ML VIAL (J1200) As Ordered ONE; -fentaNYL 100 MCG/2 ML INJECTION (J3010) As Ordered ONE
[2019-09-09] MEDS ORDERED: LOSA25TA14 PO (11:13)
[2019-09-09] MEDS ORDERED: ASPI81TA85 PO (11:13)
[2019-09-09] MEDS ORDERED: DILT60CASR PO (11:13)
[2019-09-09] MEDS ORDERED: CLOP75TA2 PO (11:13)
[2019-09-09 11:21] LABS: BASO # 0.1 10^3/uL (0.0-0.2); BASO % 0.4 % (0.0-1.0); EOS # 0.2 10^3/uL (0.0-0.5); EOS % 0.8 % (0.0-3.0); HEMATOCRIT 29.7 % (42.0-52.0); HEMOGLOBIN 9.5 g/dl (13.5-17.5); LYMPH # 1.8 10^3/uL (1.5-5.0); LYMPH % 9.2 % (24.0-44.0); MEAN CORPUSCULAR HEMOGLOBIN 32.5 pg (27.0-33.0); MEAN CORPUSCULAR VOLUME 101.7 fl (80.0-96.0); MONO # 1.6 10^3/uL (0.0-0.8); MONO % 8.2 % (0.0-5.0); NEUTROPHILS % 80.9 % (36.0-66.0); PLATELET COUNT, AUTOMATED 322 10^3/uL (150-450); RED BLOOD COUNT 2.92 10^6/uL (4.30-6.10); WHITE BLOOD COUNT 19.8 10^3/uL (4.0-10.0)
[2019-09-09 11:53] LABS: ALBUMIN 2.9 GM/DL (3.2-5.2); BILIRUBIN,DIRECT 0.1 MG/DL (0.0-0.2); BILIRUBIN,TOTAL 0.3 MG/DL (0.2-1.0); C REACTIVE PROTEIN QUANTITATIV 7.49 MG/DL (0.00-0.30); CALCIUM LEVEL 8.7 MG/DL (8.8-10.2); CREATININE FOR GFR 11.7 MG/DL (0.70-1.30); GLOMERULAR FILTRATION RATE 4.7 (>49); POTASSIUM SERUM 4.3 MEQ/L (3.5-5.1); TOTAL PROTEIN 7.1 GM/DL (6.4-8.2)
[2019-09-09] MEDS ORDERED: PIPERACILLIN/TAZOBACTAM SOD 4.5 GM in D5W MINI-BAG PLUS 50 ML IV ONE (13:00)
--- NOTE | 2019-09-09 13:05 | REP ---
Right foot two views: There are no comparisons. There is diffuse demineralization. There are no focal lytic, blastic or destructive skeletal changes to suggest osteomyelitis. I suspect circumferential soft tissue edema. This should be confirmed clinically. There is heavily calcified vascular atheroma. No fracture or dislocation. Calcaneal spurs. Electronically Signed by Herrera Hilton MD 09/09/2019 12:55 P
[2019-09-09] MEDS ORDERED: FLUID PLACE HOLDER IV ONE (13:15)
[2019-09-09] MEDS ORDERED: TAZOBACTAM SOD IV ONE (13:15)
[2019-09-09] MEDS ORDERED: PIPERACILLIN IV ONE (13:15)
--- NOTE | 2019-09-09 13:37 | REP ---
Right lower extremity Duplex Doppler venous ultrasound: Real time compression and duplex Doppler interrogation of the right lower extremity deep venous system is performed. The right common femoral, superficial femoral and popliteal veins are fully compressible with transducer pressure and demonstrate normal spontaneous and phasic flow, without evidence of deep venous thrombosis. Impression: No evidence of deep venous thrombosis of the right lower extremity femoral popliteal venous system. Electronically Signed by Herrera Easley MD 09/09/2019 01:28 P
[2019-09-09] MEDS ORDERED: RENATAB6 PO (13:47)
[2019-09-09] MEDS ORDERED: VITA100054 PO (13:47)
[2019-09-09] MEDS ORDERED: MOM 30ML SUSPENSION UDC PO PRN (14:30)
[2019-09-09] MEDS ORDERED: GLUCAGON FOR INJ 1 MG VIAL (J1610) SC PRN (14:30)
[2019-09-09] MEDS ORDERED: GLUCOSE 4 GM CHEW TABLET PO PRN (14:30)
[2019-09-09] MEDS ORDERED: ACETAMINOPHEN TAB 650MG DOSE (2X325MG) PO PRN (14:30)
[2019-09-09] MEDS ORDERED: DEXTROSE 50% 50 ML SYRINGE IV PRN (14:30)
--- NOTE | 2019-09-09 15:05 | CR.PDOC ---
General Date of Consultation: Sep 09, [address] Andrew HPI: 63 year old M with history of PAD, status post right lower extremity arteriogram 08/23/[address] Carbone with angioplasty of the PT, peroneal, and MILTON. The patient follows with wound care with podiatry, Dr. Chowdary. The patient was seen at podiatry earlier today and referred to the emergency department for vascular evaluation related to worsening appearance of his toes and increasing erythema. Vascular surgery is consulted. Denies any Headache, Chest Pain, Shortness of breath, cough, palpitations, abdominal pain, N/V/D or changes in bowel or bladder habits. PMHx: Hypertension/HHD/CHF IDDM Dyslipidemia Glaucoma ESRD, dialysis Monday//Monday PSHX: PermCath placement PD cath placement SOCHX: Nonsmoker FAMHX: Father secondary to lung cancer. Mother secondary to diabetes, brain cancer ROS: As noted in HPI, otherwise 11pt ROS of systems reviewed and unremarkable. PE: GEN: 63 yo M, appears stated age. No acute distress. Alert and oriented x 3. Pleasant, interactive. HEENT: Normocephalic, atraumatic. Moist mucous membranes. CHEST: Regular rate and rhythm, +S1, +S2 LUNGS: Clear to auscultation bilaterally. ABD: Round, soft, non-tender, non-distended. +Bowel sounds throughout. EXT: Right foot with dry gangrene of the right great toe, dark discoloration of the third and fourth toes, erythema of the second and fifth toes with erythema extending to the mid foot area. Exam is somewhat limited as the patient is having arterial ultrasound currently. Pitting edema is noted of the right lower extremity. NEURO: Alert and oriented x 3. Cranial nerves III-XII are intact. No focal deficits appreciated. Arteriogram 08/23/19 Dr. Carbone. Impression: 1. Right leg angiogram demonstrates anterior tibial, peroneal and posterior tibial occlusion. 2. Successful three-vessel recanalization including posterior tibial and peroneal artery angioplasty. Successful recanalization of anterior tibial artery. 3. Patient to follow up in IR clinic in 1 month time. Arterial ultrasound right lower extremity. Pending. A&P: 1. PAD/gangrene of the toes right foot. Pt is afebrile. WBC 19.8. Patient is status post arteriogram 08/23/19 with intervention as per Dr Carbone. Arterial ultrasound is pending. Additional recommendations per Dr Andrew pending review of these results. Continue with wound care as per podiatry. IV antibiotics as per medicine service. Patient remains on aspirin 81 mg daily, Plavix 75 mg daily and Zocor. Continue to follow. Vital Signs/I&O Vital Signs Date Time Temp Pulse Resp B/P (MAP) Pulse Ox O2 Delivery O2 Flow Rate FiO2 09/09/19 14:00 88 18 176/83 (114) 99 Room Air 09/09/19 10:26 97.2 Laboratory Data Labs 24H Laboratory Tests 2 09/09/19 11:03: Immature Granulocyte % (Auto) 0.5, Neutrophils (%) (Auto) 80.9H, Lymphocytes (%) (Auto) 9.2L, Monocytes (%) (Auto) 8.2H, Eosinophils (%) (Auto) 0.8, Basophils (%) (Auto) 0.4, Neutrophils # (Auto) 16.0H, Lymphocytes # (Auto) 1.8, Monocytes # (Auto) 1.6H, Eosinophils # (Auto) 0.2, Basophils # (Auto) 0.1, Nucleated Red Blood Cells % (auto) 0.0, Anion Gap 9, Glomerular Filtration Rate 4.7L, Lactic Acid Level 2.0, Calcium Level 8.7L, Total Bilirubin 0.3, Direct Bilirubin 0.1, Aspartate Amino Transf (AST/SGOT) 13, Alanine Aminotransferase (ALT/SGPT) 24, Alkaline Phosphatase 144H, C-Reactive Protein, Quantitative 7.49H, Total Protein 7.1, Albumin 2.9L, Albumin/Globulin Ratio 0.69L CBC/BMP Laboratory Tests 09/09/19 11:03 Microbiology Microbiology 09/09/19 Blood Culture, Received Pending 09/09/19 Blood Culture, Received Pending Allergies Coded Allergies: acetazolamide (Verified Adverse Reaction, Severe, CONVULSIONS, 05/13/19) Home Medications Scheduled Aspirin (Aspir 81) 81 Mg Tablet., 81 MG PO DAILY, (Reported) Atropine Sulfate (Atropine Sulfate) 1% 2ML Drops, 1 DROP OS DAILY, (Reported) Bimatoprost (Lumigan) 50 Drop/2.5 Ml Karla, 1 DROP OU QHS, (Reported) Brimonidine Tartrate/Timolol (Combigan 0.2%-0.5% Eye Drops) 5 Ml Drops, 1 DROP OU BID, (Reported) Brinzolamide (Azopt) 1% 10ML Drops.susp, 1 DROP OS BID, (Reported) Calcitriol (Rocaltrol) 0.5 Mcg Capsule, 0.5 MCG PO DAILY, (Reported) Cholecalciferol (Vitamin D3) (Vitamin D3) 1,000 Unit Capsule, 1,000 UNIT PO DAILY, (Reported) Clopidogrel Bisulfate (Clopidogrel) 75 Mg Tablet, 75 MG PO DAILY, (Reported) Diltiazem HCl (Diltiazem 12Hr ER) 60 Mg Cap.er.12h, 60 MG PO DAILY for high blood pressure, (Reported) HOLD FOR SP: <120 Insulin Glargine (Lantus) 1 Units/0.01 Ml Susp, 45 UNITS SC QHS, (Reported) Insulin Glargine (Lantus) 1 Units/0.01 Ml Susp, 65 UNITS SC DAILY, (Reported) Insulin Human Lispro (Humalog) 1 Units/0.01 Ml Inj, 1 DOSE SC AC, (Reported) PER SLIDING SCALE Losartan Potassium (Losartan Potassium) 25 Mg Tablet, 25 MG PO QHS, (Reported) Prednisolone Acetate (Prednisolone Acetate 1% Opth Susp) 5 Ml Drops.susp, 1 DROP OS BID, (Reported) Simvastatin (Simvastatin) 40 Mg Tab, 40 MG PO QHS, (Reported) Sucroferric Oxyhydroxide (Velphoro) 500 Mg Tab.chew, 500 MG PO WM, (Reported) Vit B Comp No.3/Folic/C/Biotin (Jaz-Basilio Rx Tablet) 1 Each Tablet, 1 TAB PO DAILY, (Reported) Dulce Espinla Sep 09, 2019 15:05
[2019-09-09 15:15] VITALS: BP 124/71
--- NOTE | 2019-09-09 16:21 | HPEPDOC ---
[facility] Medical History & Physical Date of Admission Sep 09, 2019 Date of Service: Sep 09, 2019 History and Physical CHIEF COMPLAINT: Dry gangrene of the right toes, 1-4. HISTORY OF PRESENT ILLNESS: This is a 63-year-old male who presented for worsening dry gangrene right toes since this morning. He is accompanied by his and son-in-law who supplemented the history. He states that his right big toe initially started to change colors about 2 months prior. He was evaluated by Dr. Chowdary who then states that this is possibly vascular in nature and referred him to Dr. Carbone. On August 23 he underwent an angioplasty of the PT, MILTON and peroneal of the right leg. He was then started on aspirin and Plavix which state he has been compliant with everyday. He noticed when he woke up today his second third and fourth toes of his right foot started become black in color, and have a foul smell. He denies any pain for he does have diabetic neuropathy for the last 5 years. He was evaluated by Dr. Chowdary earlier this morning who recommended him to come to the ER for vascular evaluation. He denies weight loss, hair loss, headache, visual changes, chest pain, shortness of breath, cough, nausea, vomiting, diarrhea, abdominal pain, muscle aches, worsening arthritis, or change in mood. PAST MEDICAL HISTORY: 1. Diabetes mellitus, complicated by retinopathy and neuropathy 2. End-stage renal disease, Peritoneal dialysis 3. Cervical herniated disc, chronic 4. Hypertension 5. HFpEF (EF 70-75%) 6. Obesity HOME MEDICATIONS: Please see below. ALLERGIES: Please see below PAST SURGICAL HISTORY: 1. Bilateral cataracts, 2017 2. Tubular implant right eye, 2018 3. Fistula in left arm 4. Peritoneal graft for dialysis 5. Angioplasty of the right PT AT and peroneal 08/23/2019 SOCIAL HISTORY: Lives with: , Employment: Retired, Tobacco use: Denies. ETO H: Denies,Illicit drug use: Denies, CODE STATUS: DNR/DNI. Denies any recent travels or prolonged car drives. Ambulates with a cane FAMILY HISTORY: Reviewed and noncontributory. Denies any family history of peripheral arterial disease. REVIEW OF SYSTEMS: 10 systems reviewed and negative other than HPI PHYSICAL EXAMINATION: VITAL SIGNS: See below GENERAL: Pleasant 63-year-old male sitting up in bed awake alert oriented speaking in complete sentences no acute distress HEENT: Atraumatic, normocephalic mucous membranes, large neck girth, no visible JVD CARDIOVASCULAR: S1 S2 regular no additional heart sounds appreciated. RESPIRATORY: Clear to auscultation bilaterally. ABDOMINAL: Bowel sounds present but distant. Abdomen distended with a peritoneal dialysis catheter is in place with peritoneal fluid. Denies tenderness with palpation EXTREMITIES: Bilateral pitting edema right worse than left up to mid calves. Unable to assess pedal pulses bilaterally. Dry gangrenous necrotic first toe on the right erythema at the base of the toes 2-5. No increased warmth of the lower extremities. No tenderness to palpation of the toes and foot. However foul smell is present. NEUROLOGICAL: no gross focal deficits appreciated. Decreased sensation in the lower extremities up to knees (chronic the last 5 years) PSYCHOLOGICAL: Appropriate LABORATORY DATA: See below. MICROBIOLOGY: Please see below. IMAGIN09/09/2019 Foot x-ray - There are no comparisons.There is diffuse demineralization.There are no focal lytic, blastic or destructive skeletal changes to suggest osteomyelitis. I suspect circumferential soft tissue edema. This should be con firmed clinically. There is heavily calcified vascular atheroma. No fracture or dislocation. Calcaneal spurs. Vascular ultrasound - No evidence of deep venous thrombosis of the right lower extremity femoral popliteal venous system. ASSESSMENT & PLAN: This is a 63-year-old male presenting Dry gangrene of the right toes, 1-4. PROBLEMS: 1. Dry gangrene of the right toes, 1-4.. S/p Angioplasty of the right PT AT and peroneal on 08/23/2019. Exam consistent with possible progressive vascular changes of the lower extermity. Venous ultrasounds of the lower extremity is negative for DVTs.. I could not feel pulses during exam. Dr. Rizzo has be en consulted. Arterial duplex study is ordered. Will continue with aspirin and Plavix. I do not believe this is cellulitis but he s/p Zosyn 4.5 from the ER. Pending which procdure is done will add antibiotic if indicated. Currently on bedrest will reevaluate after 24-48 hours. 2. Diabetes mellitus, complicated by retinopathy and neuropathy. Consistent carbohydrate diet. Continue with long-acting coverage 65 units daily and 45 units daily at bedtime. Insulin sliding scale on board. 3. Hyperlipidemia.c/w Zocor 4. Hypertension. c/w losartan and should bring home diltiazem 60 mg extended release secondary continued while admitted. 5. End-stage renal disease on peritoneal dialysis. Nephrology has been consulted. c/w home vitamin D, and Calcitrol. 6. Glaucoma. c/w eyedrops as prescribed outpatient DVT PROPHYLAXIS: None at this current time venous ultrasound of lower extremity is negative for DVTs. Once stable from a vascular stand point can consider teds and sequentials. DISPOSITION: Admit at least for 2 midnights pending vascular recommendations Vital Signs Vital Signs Date Time Temp Pulse Resp B/P (MAP) Pulse Ox O2 Delivery O2 Flow Rate FiO2 09/09/19 15:15 98.9 75 17 124/71 (88) 94 Room Air Laboratory Data Labs 24H Laboratory Tests 2 09/09/19 11:03: Immature Granulocyte % (Auto) 0.5, Neutrophils (%) (Auto) 80.9H, Lymphocytes (%) (Auto) 9.2L, Monocytes (%) (Auto) 8.2H, Eosinophils (%) (Auto) 0.8, Basophils (%) (Auto) 0.4, Neutrophils # (Auto) 16.0H, Lymphocytes # (Auto) 1.8, Monocytes # (Auto) 1.6H, Eosinophils # (Auto) 0.2, Basophils # (Auto) 0.1, Nucleated Red Blood Cells % (auto) 0.0, Anion Gap 9, Glomerular Filtration Rate 4.7L, Lactic Acid Level 2.0, Calcium Level 8.7L, Total Bilirubin 0.3, Direct Bilirubin 0.1, Aspartate Amino Transf (AST/SGOT) 13, Alanine Aminotransferase (ALT/SGPT) 24, Alkaline Phosphatase 144H, C-Reactive Protein, Quantitative 7.49H, Total Protein 7.1, Albumin 2.9L, Albumin/Globulin Ratio 0.69L CBC/BMP Laboratory Tests 09/09/19 11:03 Microbiology Microbiology 09/09/19 Blood Culture, Received Pending 09/09/19 Blood Culture, Received Pending Home Medications Scheduled Aspirin (Aspir 81) 81 Mg Tablet.dr, 81 MG PO DAILY Atropine Sulfate (Atropine Sulfate) 1% 2ML Drops, 1 DROP OS DAILY Bimatoprost (Lumigan) 50 Drop/2.5 Ml Karla, 1 DROP OU QHS Brimonidine Tartrate/Timolol (Combigan 0.2%-0.5% Eye Drops) 5 Ml Drops, 1 DROP OU BID Brinzolamide (Azopt) 1% 10ML Drops.susp, 1 DROP OS BID Calcitriol (Rocaltrol) 0.5 Mcg Capsule, 0.5 MCG PO DAILY Cholecalciferol (Vitamin D3) (Vitamin D3) 1,000 Unit Capsule, 1,000 UNIT PO DAILY Clopidogrel Bisulfate (Clopidogrel) 75 Mg Tablet, 75 MG PO DAILY Diltiazem HCl (Diltiazem 12Hr ER) 60 Mg Cap.er.12h, 60 MG PO DAILY for high blood pressure HOLD FOR SP: <120 Insulin Glargine (Lantus) 1 Units/0.01 Ml Susp, 45 UNITS SC QHS Insulin Glargine (Lantus) 1 Units/0.01 Ml Susp, 65 UNITS SC DAILY Insulin Human Lispro (Humalog) 1 Units/0.01 Ml Inj, 1 DOSE SC AC PER SLIDING SCALE Losartan Potassium (Losartan Potassium) 25 Mg Tablet, 25 MG PO QHS Prednisolone Acetate (Prednisolone Acetate 1% Opth Susp) 5 Ml Drops.susp, 1 DROP OS BID Simvastatin (Simvastatin) 40 Mg Tab, 40 MG PO QHS Sucroferric Oxyhydroxide (Velphoro) 500 Mg Tab.chew, 500 MG PO WM Vit B Comp No.3/Folic/C/Biotin (Jaz-Basilio Rx Tablet) 1 Each Tablet, 1 TAB PO DAILY Allergies Coded Allergies: acetazolamide (Verified Adverse Reaction, Severe, CONVULSIONS, 05/13/19) KELLY EPPS DO Sep 09, 2019 16:21
[2019-09-09] MEDS: SUCROFERRIC OXYHYDROXIDE 500MG CHEW TAB (VELPHORO) PO SCH (17:10)
[2019-09-09] MEDS: HumaLOG INSULIN (NovoLOG) PER UNIT SC SCH ×2 (17:10→22:26)
--- NOTE | 2019-09-09 17:27 | REP ---
RIGHT LOWER EXTREMITY DUPLEX DOPPLER ARTERIAL ULTRASOUND: Real-time ultrasound evaluation and duplex Doppler interrogation of right lower extremity arterial system is performed. Severe diffuse plaquing is noted throughout the right lower extremity arterial system. There is occlusion of the right posterior tibial artery. There is stenosis of the distal right anterior tibial artery. Monophasic wave form is seen in the anterior tibial artery diffusely. More proximally, triphasic wave forms are seen diffusely. RIGHT PEAK SYSTOLIC VELOCITY Common femoral artery 107.3 cm/s Profunda 75.8 cm/s Proximal SFA 99.5 cm/s Mid SFA 106.4 cm/s Distal SFA 77.7 cm/s Popliteal 68.7 cm/s Proximal [place] 51.0 cm/s Tibioperoneal trunk 49.9 cm/s Posterior tibial artery Occluded Distal [place] 112.9 cm/s Electronically Signed by Herrera Easley MD 09/11/2019 12:10 P
[2019-09-09 18:26] LABS: PERCENT SATURATION 18.1 % (19.7-50.0)
--- NOTE | 2019-09-09 18:50 | IPNPDOC ---
Date Seen The patient was seen on 09/09/19. Progress Note Full consult to follow. I have reviewed Dr. Carbone's arteriogram status post posterior tibial and anterior tibial intervention. I have reviewed the arterial duplex from today that reveals occlusion of the posterior tibial artery and monophasic flow through the anterior tibial artery. With worsening gangrene of the right foot, I think it is worthwhile to try one more time to open up the tibial vessels although I am not sure this additional blood flow will be enough to salvage the foot. We will try to at this caisson for tomorrow, and the patient should be NPO after breakfast. Would recommend continuing IV antibiotics to try to stave off any worsening progression of tissue loss and infection in the right foot. Hold Plavix for now. We can restart it after the procedure. VS, I&O, 24H, Fishbone Vital Signs/I&O Vital Signs Date Time Temp Pulse Resp B/P (MAP) Pulse Ox O2 Delivery O2 Flow Rate FiO2 09/09/19 15:15 98.9 75 17 124/71 (88) 94 Room Air Laboratory Data 24H LABS Laboratory Tests 2 09/09/19 11:03: Immature Granulocyte % (Auto) 0.5, Neutrophils (%) (Auto) 80.9H, Lymphocytes (%) (Auto) 9.2L, Monocytes (%) (Auto) 8.2H, Eosinophils (%) (Auto) 0.8, Basophils ( %) (Auto) 0.4, Neutrophils # (Auto) 16.0H, Lymphocytes # (Auto) 1.8, Monocytes # (Auto) 1.6H, Eosinophils # (Auto) 0.2, Basophils # (Auto) 0.1, Nucleated Red Blood Cells % (auto) 0.0, Anion Gap 9, Glomerular Filtration Rate 4.7L, Lactic Acid Level 2.0, Calcium Level 8.7L, Iron Level 35L, Total Iron Binding Capacity 193L, Transferrin % Saturation 18.1L, Ferritin 1028H, Total Bilirubin 0.3, Direct Bilirubin 0.1, Aspartate Amino Transf (AST/SGOT) 13, Alanine Aminotransferase (ALT/SGPT) 24, Alkaline Phosphatase 144H, C-Reactive Protein, Quantitative 7.49H, Total Protein 7.1, Albumin 2.9L, Albumin/Globulin Ratio 0.69L 09/09/19 16:56: Bedside Glucose (Misc Panel) 86 CBC/BMP Laboratory Tests 09/09/19 11:03 Microbiology Microbiology 09/09/19 Blood Culture, Received Pending 09/09/19 Blood Culture, Received Pending ZACARIAS PATRICK MD Sep 09, 2019 18:50
[2019-09-09 22:00] VITALS: BP 133/70
[2019-09-09] MEDS: LOSARTAN 25 MG TAB PO SCH (22:50)
[2019-09-09] MEDS: SIMVASTATIN 40 MG TAB PO SCH (22:50)
[2019-09-09] MEDS: prednisoLONE ACET 1% OPHTH SUSP 5ML OS SCH (22:50)
[2019-09-09] MEDS: BRINZOLAMIDE 1 % OPHTH SUSP (AZOPT) 10ML OS SCH (22:50)
[2019-09-09] MEDS: LEVEMIR (INSULIN DETEMIR) 1 UNITS/0.01ML SC SCH (23:02)
[2019-09-10 00:42] LABS: APPEARANCE, BODY FLUID CLEAR (CLEAR); PERITONEAL FL COLOR COLORLESS (COLORLESS); SOURCE, BODY FLUID PERITONEAL
[2019-09-10 02:20] VITALS: BP 153/58
[2019-09-10] MEDS ORDERED: PIPERACILLIN/TAZOBACTAM SOD 3.375 GM in D5W MINI-BAG PLUS 50 ML IV SCH (02:30)
[2019-09-10] MEDS: PIPERACILLIN/TAZOBACTAM SOD 4.5 GM in D5W MINI-BAG PLUS 50 ML IV SCH ×2 (04:11→19:01)
[2019-09-10 06:00] VITALS: BP 152/57
[2019-09-10 06:49] LABS: HEMATOCRIT 28.8 % (42.0-52.0); HEMOGLOBIN 9.1 g/dl (13.5-17.5); MEAN CORPUSCULAR HEMOGLOBIN 32.3 pg (27.0-33.0); MEAN CORPUSCULAR HGB CONC 31.6 g/dl (32.0-36.5); MEAN CORPUSCULAR VOLUME 102.1 fl (80.0-96.0); PLATELET COUNT, AUTOMATED 299 10^3/uL (150-450); RED BLOOD COUNT 2.82 10^6/uL (4.30-6.10); WHITE BLOOD COUNT 18.1 10^3/uL (4.0-10.0)
[2019-09-10] MEDS: SUCROFERRIC OXYHYDROXIDE 500MG CHEW TAB (VELPHORO) PO SCH ×3 (07:15→19:00)
[2019-09-10 07:20] LABS: CALCIUM LEVEL 9.2 MG/DL (8.8-10.2); CREATININE FOR GFR 12.7 MG/DL (0.70-1.30); GLOMERULAR FILTRATION RATE 4.3 (>49); MAGNESIUM LEVEL 2.1 MG/DL (1.8-2.4); POTASSIUM SERUM 3.8 MEQ/L (3.5-5.1)
[2019-09-10] MEDS: HumaLOG INSULIN (NovoLOG) PER UNIT SC SCH ×4 (07:30→21:20)
[2019-09-10] MEDS: LEVEMIR (INSULIN DETEMIR) 1 UNITS/0.01ML SC SCH ×2 (08:15→21:21)
[2019-09-10] MEDS ORDERED: CLOPIDOGREL 75 MG TAB PO SCH (09:00)
[2019-09-10] MEDS: ASPIRIN 81 MG ENTERIC TAB PO SCH (09:13)
[2019-09-10] MEDS: VITAMIN D 1,000 INTERNATIONAL UNITS TABLET PO SCH (09:13)
[2019-09-10] MEDS: ATROPINE SULFATE 1% OP SOLN 2 ML BTL OS SCH (09:14)
[2019-09-10] MEDS: CALCITRIOL 0.25 MCG CAP (S0169) PO SCH (09:14)
[2019-09-10] MEDS: prednisoLONE ACET 1% OPHTH SUSP 5ML OS SCH ×2 (09:14→21:18)
[2019-09-10] MEDS: BRINZOLAMIDE 1 % OPHTH SUSP (AZOPT) 10ML OS SCH ×2 (09:14→21:18)
[2019-09-10] MEDS: DILTIAZEM 60 MG PO SCH (09:15)
--- NOTE | 2019-09-10 10:11 | IPNPDOC ---
Date Seen The patient was seen on 09/10/19. Progress Note SUBJECTIVE: Patient seen stable this morning. He is nothing by mouth after breakfast and will be going down for his arteriogram later this afternoon. He would like to continue all of his glaucoma medication while admitted if possible. Patient denies chest pain, shortness breath, nausea, vomiting, fevers, and chills OBJECTIVE PHYSICAL EXAMINATION: VITAL SIGNS: See below GENERAL: Pleasant 63-year-old male sitting up in bed awake alert oriented speaking in complete sentences no acute distress HEENT: Atraumatic, normocephalic mucous membranes, large neck girth, no visible JVD CARDIOVASCULAR: S1 S2 regular no additional heart sounds appreciated. RESPIRATORY: Clear to auscultation bilaterally. ABDOMINAL: Bowel sounds present but distant. Abdomen distended with a peritoneal dialysis catheter is in place with peritoneal fluid. Denies tenderness with pa lpation EXTREMITIES: Bilateral pitting edema right worse than left up to mid calves. Unable to assess pedal pulses bilaterally. Dry gangrenous necrotic first toe on the right erythema at the base of the toes 2-5. No increased warmth of the lower extremities. No tenderness to palpation of the toes and foot. Foul smell is still present. NEUROLOGICAL: no gross focal deficits appreciated. Decreased sensation in the lower extremities up to knees (chronic the last 5 years) PSYCHOLOGICAL: Appropriate LABORATORY DATA: See below. MICROBIOLOGY: Please see below. IMAGIN09/09/2019 Foot x-ray - There are no comparisons.There is diffuse demineralization.There are no focal lytic, blastic or destructive skeletal changes to suggest osteomyelitis. I suspect circumferential soft tissue edema. This should be confirmed clinically. There is heavily calcified vascular atheroma. No fracture or dislocation. Calcaneal spurs. Vascular ultrasound - No evidence of deep venous thrombosis of the right lower extremity femoral popliteal venous system. ASSESSMENT & PLAN: This is a 63-year-old male presenting Dry gangrene of the right toes, 1-4. PROBLEMS: 1. Dry gangrene of the right toes, 1-4.. S/p Angioplasty of the right PT AT and peroneal on 08/23/2019. Exam consistent with possible progressive vascular changes of the lower extermity. Venous ultrasounds of the lower extremity is negative for DVTs.. Dr. Rizzo has been consulted, Arterial duplex study show occlusion of the posterior tibial artery. Arteriogram later this afternoon. Will continue with aspirin and hold Plavix. Continue with Zosyn PD dose Per recommendation of vascular surgery. Activity as tolerated. Once the arteriogram is completed will put PT consultation. 2. Diabetes mellitus, complicated by retinopathy and neuropathy. Consistent carbohydrate diet. Continue with long-acting coverage 65 units daily and 45 units daily at bedtime. Insulin sliding scale on board. 3. Hyperlipidemia.c/w Zocor 4. Hypertension. c/w losartan and should bring home diltiazem 60 mg extended release secondary continued while admitted. 5. End-stage renal disease on peritoneal dialysis. Nephrology consulted. c/w home vitamin D, and Calcitrol. 6. Glaucoma. c/w eyedrops as prescribed outpatient DVT PROPHYLAXIS: None at this current time venous ultrasound of lower extremity is negative for DVTs. Once stable from a vascular stand point can consider teds and sequentials. DISPOSITION: Arteriogram this afternoon, continue with antibiotics, except at least 1-2 more midnights. VS, I&O, 24H, Fishbone Vital Signs/I&O Vital Signs Date Time Temp Pulse Resp B/P (MAP) Pulse Ox O2 Delivery O2 Flow Rate FiO2 09/10/19 06:00 99.1 86 19 152/57 (88) 93 Room Air I&O- Last 24 Hours up to 6 AM 09/10/19 06:00 Intake Total 2500 ml Output Total 1300 ml Balance 1200 ml Laboratory Data 24H LABS Laboratory Tests 2 09/09/19 11:03: Immature Granulocyte % (Auto) 0.5, Neutrophils (%) (Auto) 80.9H, Lymphocytes (%) (Auto) 9.2L, Monocytes (%) (Auto) 8.2H, Eosinophils (%) (Auto) 0.8, Basophils (%) (Auto) 0.4, Neutrophils # (Auto) 16.0H, Lymphocytes # (Auto) 1.8, Monocytes # (Auto) 1.6H, Eosinophils # (Auto) 0.2, Basophils # (Auto) 0.1, Nucleated Red Blood Cells % (auto) 0.0, Anion Gap 9, Glomerular Filtration Rate 4.7L, Lactic Acid Level 2.0, Calcium Level 8.7L, Iron Level 35L, Total Iron Binding Capacity 193L, Transferrin % Saturation 18.1L, Ferritin 1028H, Total Bilirubin 0.3, Direct Bilirubin 0.1, Aspartate Amino Transf (AST/SGOT) 13, Alanine Aminotransferase (ALT/SGPT) 24, Alkaline Phosphatase 144H, C-Reactive Protein, Quantitative 7.49H, Total Protein 7.1, Albumin 2.9L, Albumin/Globulin Ratio 0.69L 09/09/19 16:56: Bedside Glucose (Misc Panel) 86 09/09/19 20:16: Bedside Glucose (Misc Panel) 106 09/10/19 00:02: Body Fluid WBC (Auto) 19H, Body Fluid RBC (Auto) < 2, Body Fluid Mononuclear Cells % Auto 94.7H, Fluid Polymorphonuclear Cell % Auto 5.3H, Peritoneal Fluid Source PERITONEAL, Peritoneal Fluid Color COLORLESS, Peritoneal Fluid Appearance CLEAR 09/10/19 06:26: Nucleated Red Blood Cells % (auto) 0.0, Anion Gap 8, Glomerular Filtration Rate 4.3L, Calcium Level 9.2, Magnesium Level 2.1 CBC/BMP Laboratory Tests 09/09/19 11:03 09/10/19 06:26 Microbiology Microbiology 09/09/19 Blood Culture, Received Pending 09/09/19 Blood Culture, Received Pending KELLY EPPS DO Sep 10, 2019 10:11
[2019-09-10 14:00] VITALS: BP 180/80
--- NOTE | 2019-09-10 14:16 | IPNPDOC ---
Text Note Date of Service The patient was seen on 09/10/19. NOTE Vascular surgery. Dr. Andrew The patient is a 63-year-old male with history of PAD and gangrene of the toes right foot. The patient is status post arteriogram left lower extremity 08/23/19 with STATE DIRECTOR/MILTON intervention as per Dr. Carbone. The patient was admitted 09/09/19 with worsening right foot wounds. Tmax99.7 WBC 18.1. Arterial ultrasound 09/09/19 indicated occlusion of the posterior tibial artery and monophasic flow through the anterior tibial artery. With worsening gangrene of the right foot, it is felt worthwhile to try one more time to open up the tibial vessels. Plan to proceed with arteriogram right lower extremity later today. The procedure, risks, and benefits are reviewed with the patient as per Dr. Andrew. Informed consent is obtained and placed on the chart. NPO after breakfast today. Peritoneal dialysis as per nephrology. Continue with wound care as per podiatry. IV antibiotics as per medicine service. Patient remains on aspirin 81 mg daily, Zocor. Plavix on hold until angiogram then plan to restart after procedure. Would recommend continuing IV antibiotics to try to stave off any worsening progression of tissue loss and infection in the right foot. Continue to monitor. VS,Fishbone, I+O VS, Fishbone, I+O Laboratory Tests 09/10/19 06:26 Vital Signs Date Time Temp Pulse Resp B/P (MAP) Pulse Ox O2 Delivery O2 Flow Rate FiO2 09/10/19 06:00 99.1 86 19 152/57 (88) 93 Room Air I&O- Last 24 Hours up to 6 AM 09/10/19 06:00 Intake Total 2500 ml Output Total 1300 ml Balance 1200 ml Dulce Espinal Sep 10, 2019 14:16
[2019-09-10 14:51] LABS: HEMOGLOBIN A1c 8.1 %
[2019-09-10] MEDS ORDERED: MIDAZOLAM INJ 2 MG/2 ML VIAL (J2250) As Ordered ONE (15:54)
[2019-09-10] MEDS ORDERED: fentaNYL 100 MCG/2 ML INJECTION (J3010) As Ordered ONE (15:54)
[2019-09-10] MEDS ORDERED: ISOVUE-300 61% 50ML VIAL (Q9967) As Ordered ONE (15:55)
[2019-09-10] MEDS ORDERED: HEPARIN 1,000 UNITS/ML 10ML VIAL (FOR RADIOLOGY& DIALYSIS ONLY)(J1644-10) As Ordered ONE (15:55)
[2019-09-10] MEDS ORDERED: LIDOCAINE 1% MDV 20ML VIAL As Ordered ONE (15:55)
--- NOTE | 2019-09-10 17:32 | HPE ---
DATE OF ADMISSION: 09/09/2019 Patient seen and examined at bedside. He was seen in my office yesterday and sent to the emergency room (ER) due to worsening gangrenous changes to his right foot. He is concerned that the foot seems to be even worsened from yesterday. Per chart review, he is scheduled for angiogram later today. Vital signs are reviewed. Maximal temperature is 99.7. Labs are reviewed. White blood cell count 18.1. CRP is 7.49. Lower extremity examination: On the right side, there are worsening gangrenous changes to the 3rd and 4th toes compared even to yesterday with some rubrous discoloration to the dorsal foot. ASSESSMENT: A 63-year-old diabetic male with peripheral vascular disease with advancing dysvascular changes to his foot. PLAN: He is scheduled for angiogram later today. Further planning based on success of improving blood flow. He is at high risk for losing not only his toes but also his foot based on his worsening vascular status. Will follow.
--- NOTE | 2019-09-10 18:15 | ROOPDOC ---
[facility] Report Of Operation Report of Operation DATE OF PROCEDURE: 09/10/19 PREPROCEDURE DIAGNOSES: Atherosclerosis of the [place] arteries with worsening wounds of the right foot POSTPROCEDURE DIAGNOSES: Same PROCEDURE: 1. Ultrasound-guided access left common femoral artery 2. Selection of right common iliac artery, common femoral artery, superficial femoral artery, distal anterior tibial artery with right lower extremity arteriogram and runoff 3. Angioplasty right popliteal artery with 6 x 40 and 7 x 100 [place] balloons 4. Angioplasty right posterior tibial artery with 2.5 x 220 Lionel balloon 5. Angioplasty right anterior tibial artery proximally with 3 x 2 20 Lionel balloon and distally across dorsal pedis artery with 2 x 100 Lionel balloon 6. Completion arteriograms 7. Mynx closure left common femoral artery SURGEON: Zacarias Andrew MD ANESTHESIA: Local anesthesia with 7 mL lidocaine. Moderate intravenous conscious sedation was supervised by Dr. Andrew. The patient was independently monitored by a registered nurse assigned to the Department of radiology using automated blood pressure, EKG, and pulse oximetry. The details sedation record is permanently stored in the hospital information system. The following is a brief sedation record: Start time 16:36, stop time 17:54, fentanyl 50 g IV, Versed 1 mg IV, heparin 5000 units IV. CONTRAST: 62 mL Isovue-300 INDICATION FOR PROCEDURE: Mr. Lawson is a very pleasant 63-year-old gentleman with worsening wounds of his right foot. He has known peripheral vascular disease and has undergone intervention with Dr. Carbone in the past, with improvement through the tibial vessels. We will consult it to possibly re-intervene as noninvasive arterial study suggested posterior tibial artery occlusion. Risks benefits and alternatives to repeat arteriogram were explained to the patient he was agreeable to proceed. Informed consent was obtained. INTERPRETATION: 1. The inflow to the right lower extremities widely patent with a widely patent common iliac artery, hypogastric and external iliac artery. The common femoral artery profunda proximal SFA are also widely patent. The SFA is mildly ectatic, but large with no flow obstructions, and there is a 30-40% stenosis in the proximal popliteal artery and mild ectasia just distal to this, but the distal popliteal artery is widely patent. The main tibial flow through the anterior tibial artery which occludes in the proximal dorsal pedis and then reconstitutes through collaterals. The peroneal artery is also patent although diminutive in size and does give some collaterals at the ankle and foot. The posterior tibial artery is in fact patent, not occluded as the noninvasive arterial study suggested, but is limited by microvascular disease and diminutive size of the plantar vessels distal to the posterior tibial artery the ankle. 2. After angioplasty of the right popliteal artery, there was widely patent flow with no significant residual stenosis and no embolization extravasation or dissection. 3. After angioplasty of the right posterior tibial artery across the ankle to the foot, there was widely patent flow through the vessel, but still limited runoff through the diminutive plantar vessels in the foot. No extravasation, embolization or dissection noted after angioplasty the posterior tibial artery 4. After angioplasty the proximal right anterior tibial artery with a 3 x 220 Lionel balloon there was widely patent inflow to the vessel with rapid flow to the ankle. After angioplasty across the proximal part of the occlusion in the dorsal pedis artery, we did have some improvement in flow and in-line flow was present, but still there is calcified plaque that somewhat limits flow into the mid foot through the DP vessel. There is some additional flow into the ankle and foot through collaterals from the peroneal artery. No extravasation, embolization or dissection noted after angioplasty of the anterior tibial artery. REPORT OF OPERATION: The patient was brought to the angiographic suite in stable condition and placed supine on the fluoroscopic table. His bilateral groins were prepped and draped in a sterile fashion. A timeout was performed. Sedation was Mr. without complication. Local anesthesia was Mr. to the skin and subcutaneous tissue over the left groin and a microneedle was used to access the left common femoral artery under ultrasound guidance. A wire was passed through this access and a micro-sheath was placed under fluoroscopic guidance. A Glidewire was advanced through this access into the aorta under fluoroscopic guidance and sheath was exchanged for a 6 [place] sheath and flushed with saline. We then went up and over the bifurcation with an Omni flushed catheter and from the common iliac artery and arteriogram of the iliofemoral system was obtained and found to be widely patent. We then selected the right common femoral artery and found widely patent common femoral profunda and proximal SFA. We then selected the SFA and a right lower extremity runoff was performed. Please see interpretation abov e. We exchanged a short 6 [place] sheath for 90 cm 6 [place] sheath and advanced into the distal SFA. We flushed the sheath was saline. We then selected a 6 x 40 [place] balloon to angioplasty the stenosis in the popliteal artery, but this seemed a bit too small for the vessel and we upsized to a 7 x 100 [place] balloon and did three-minute inflation, and following this there was widely patent flow with no dissection embolization or extravasation noted. We then advanced the sheath through to the distal popliteal artery. We flushed the sheath with saline again. We then used an O18 Glidewire advantage to select the posterior tibial artery and advances into the proximal foot. Over the wire we advanced a 2.5 x 220 Lionel balloon and did three-minute inflations along the distal and proximal vessel. Unfortunate, the patient has plantar microvascular disease and his plantar vessels are extremely thready and small. This limits the runoff, but it is all patent. We then navigated the wire into the anterior tibial artery and tried to navigate across the occlusion in the proximal dorsal pedis artery. This typically the time but we were able to get the wire cross. We then try to advance a 2.5 x 220 balloon across, but could only get it mcfp across the occlusion. We did several inflations, but could not advance it further. We then exchange this for a 2 x 100 Lionel balloon and did a three-minute inflation as far as we can advance the balloon, but it was not all the way across the stenosis. We then removed this balloon and tried to advance a [place] catheter over the wire to see if we could create a tract that we could then pass the balloon through 4 angioplasty. We can get the [place] catheter most of the way across the occlusion, but not all the way. We did a selection view through the catheter at the distal anterior tibial and found we had created a decent tract through the occlusion and there was better outflow to the foot, but it is not quite as ideal as if we were able to angioplasty across the whole occlusion. We then it angioplasty the proximal and mid anterior tibial artery with a 3 x 220 Lionel balloon. Completion arteriogram showed rapid flow through the anterior tibial artery to the midfoot, the posterior tibial artery to the ankle and just distal in the foot, and the peroneal artery getting off collaterals through the distal ankle to the foot. No extravasation embolization or dissections were noted. This concluded her procedure and we exchanged the sheath over an O35 wire for short 6 [place] sheath into play Mynx closure device in the left common femoral artery with good hemostasis. Pressure was held for 10 minutes and sterile dressings were applied. The patient was then taken to recovery in stable condition. ESTIMATED BLOOD LOSS: Approximately 5 mL. COMPLICATIONS: None PLAN: It is okay to resume the patient's preop diet and medications. He will need 4 hours of bedrest postprocedure. The first 2 hours are flat, the second 2 hours can be with the head of bed up a little to 30. Continue with local wound care right foot per our podiatry colleagues. ZACARIAS ANDREW MD Sep 10, 2019 18:15
--- NOTE | 2019-09-10 18:44 | CR ---
DATE OF CONSULTATION: 09/10/2019 REQUESTING PHYSICIAN: Dr. Amato CONSULTING PHYSICIAN: Dr. Quinteros REASON FOR CONSULTATION: Management of end-stage renal disease, on peritoneal dialysis. HISTORY OF PRESENT ILLNESS: Jai Lawson is well known to me. He is a 63-year-old male with a past medical history of end-stage renal disease, on peritoneal dialysis, insulin-dependent diabetes mellitus with nephropathy, retinopathy, and neuropathy, peripheral vascular disease, hypertension, diastolic congestive heart failure, obesity, herniated cervical disc, secondary hyperparathyroidism of renal origin, dyslipidemia, and other comorbid conditions mentioned below. He has recently been having trouble with diabetic foot infection of the right foot for the past couple of months. He has been seeing podiatry and vascular surgery as an outpatient. On August 23 he had angioplasty of the right leg with Dr. Carbone and was on aspirin and Plavix. He was evaluated recently by Dr. Chowdary in the office, who recommended that he come to the emergency room for vascular evaluation due to worsening dry gangrene of the right foot toes. The patient denies fevers or chills. Denies any trouble with his peritoneal dialysis. He is scheduled for the operating room (OR) with Dr. Andrew later this afternoon. PAST MEDICAL HISTORY: 1. Insulin dependent diabetes complicated by retinopathy, neuropathy, nephropathy. 2. End-stage renal disease, on peritoneal dialysis. 3. Hypertension. 4. Diastolic congestive heart failure. 5. Obesity. 6. Dyslipidemia. 7. Herniated cervical disc. 8. Secondary hyperparathyroidism of renal origin. 9. Anemia of chronic renal failure. 10. Peripheral vascular disease. PAST SURGICAL HISTORY: 1. Bilateral cataracts. 2. Tubular implant, right eye. 3. Fistula in left arm. 4. Peritoneal dialysis catheter. 5. Angioplasty of right lower extremity. ALLERGIES: ACETAZOLAMIDE. SOCIAL HISTORY: He lives with his . He is retired. There is no alcohol, tobacco, or drug use. FAMILY HISTORY: Denies family history of renal failure requiring dialysis. REVIEW OF SYSTEMS: CONSTITUTIONAL: Denies fevers, chills. EYES: Reports history of cataract. Denies visual changes. EARS, NOSE, AND THROAT: Denies rhinorrhea or epistaxis. CARDIAC: Has a history of diastolic congestive heart failure. Denies leg edema or palpitations. Reports history of peripheral vascular disease. RESPIRATORY: Denies shortness of breath or cough. GASTROINTESTINAL: Denies nausea, vomiting, or diarrhea. MUSCULOSKELETAL: Reports gangrene of toes of right foot. Denies leg edema. Denies any acute myalgias or arthralgias. ENDOCRINE: Reports insulin dependent diabetes and secondary hyperparathyroidism renal origin. HEMATOLOGIC: Reports anemia of chronic renal failure. Denies anticoagulant use. NEUROLOGIC: Denies seizure or syncope. PSYCHIATRIC: Denies depression or anxiety. SKIN: Denies rashes or pruritus. Reports foot infection as per history of present illness (HPI). HOME MEDICATIONS: Reviewed and include: - aspirin 81 mg daily - calcitriol 0.5 mcg by mouth daily - vitamin D3 at 1000 units by mouth daily - Plavix 75 mg by mouth daily - diltiazem 60 mg by mouth daily - insulin - losartan 25 mg by mouth at bedtime - simvastatin 40 mg by mouth at bedtime - Velphoro 500 mg by mouth with meals - Jaz Basilio one tablet by mouth daily. Vital signs: Temperature 99.1, pulse 86, respiratory rate 19, blood pressure 152/57, saturating 93% on room air. In general, patient is seen sitting upright in bed, awake, alert, oriented, comfortable in no apparent distress. Extraocular muscles are intact. Ears, nose, and throat are unremarkable. Neck is supple. There is no jugular venous distension. Heart sounds are regular, S1, S2. There is no murmur. Radial pulses palpable. There is no leg edema. Lungs are clear to auscultation bilaterally. No crackle, rale, or rhonchus. Abdomen is soft and nontender. There is peritoneal dialysis (PD) fluid in place. The peritoneal dialysis catheter exit site is clean, dry, and intact. Extremities: There is a fistula present in the left arm with thrill and bruit. There are dry gangrenous and necrotic changes to the right big toe and erythema on the remainder toes, malodor. There is erythema extending to the mid foot. There is localized 1+ edema in the right lower extremity. Neurologic: He is oriented times three, interactive, conversational, no focal deficit. LABORATORY DATA: White count 18.1, hemoglobin 9.1, platelet 299. Sodium 137, potassium 3.8, magnesium 2.1, iron 35, total saturation 18%, ferritin 1028. CRP 7.4. Blood cultures: No growth for 24 hours times two sets. Vascular ultrasound of the right lower extremity: No deep vein thromboses (DVTs). INPATIENT MEDICATIONS: - Zosyn 4.5 grams IV every 12 hours - aspirin 81 mg by mouth daily - calcitriol 0.5 mcg by mouth daily - insulin - lactobacillus acidophilus one capsule daily - losartan 25 mg by mouth at bedtime - Cardizem extended-release 60 mg capsule daily - Lumigan and Combigan eyedrops - simvastatin 40 mg by mouth at bedtime - Velphoro 500 mg by mouth with meals - vitamin D 1000 units by mouth daily PROBLEMS: 1. End-stage renal disease, on peritoneal dialysis. PD orders are written for five exchanges, all 2.5% Dianeal with volume of 2 liters each. His electrolytes and volume status are acceptable. His peritoneal cell count is negative for infection. Continue current PD prescription. 2. Peripheral arterial disease with gangrene of the toes of the right foot. Elevated white count of 18,000. He is afebrile. He had on August [address] Carbone with angioplasty, and he is for the operating room (OR) later this afternoon with vascular surgery. Antimicrobials are managed as per the primary team. He continues on aspirin, Plavix, and statin. His blood cultures are no growth for 24 hours times two sets. 3. Hypertension. Blood pressures are fairly controlled. No change is being made to the current regimen. He brought his extended-release nifedipine from home. 4. Anemia related to chronic renal failure, iron deficiency, and chronic inflammatory state. Ferritin is about 1000. Transferrin saturation is low at 18%. I will give Venofer 300 mg IV times one, and he is resumed on weekly Aranesp. Hemoglobin is suboptimal but stable at 9.1. Target is 10-11. 5. Insulin-dependent diabetes complicated by retinopathy, neuropathy, and nephropathy, and peripheral vascular disease. Insulin as managed as per the primary team. A1c is added onto the morning labs. Thank you for involving me in the care of Mr. Lawson. I will be happy to follow him along with you.
[2019-09-10] MEDS: LUMIGAN (PATIENT'S OWN MED) OU SCH (21:16)
[2019-09-10] MEDS: COMBIGAN (PATIENT'S OWN MED) OU SCH (21:17)
[2019-09-10] MEDS: LACTOBACILLUS ACIDOPHILUS CAP (BACID) PO SCH (21:18)
[2019-09-10] MEDS: LOSARTAN 25 MG TAB PO SCH (21:19)
[2019-09-10] MEDS: SIMVASTATIN 40 MG TAB PO SCH (21:19)
[2019-09-10 22:00] VITALS: BP 190/97
[2019-09-11 01:30] VITALS: BP 144/71
[2019-09-11] MEDS: PIPERACILLIN/TAZOBACTAM SOD 4.5 GM in D5W MINI-BAG PLUS 50 ML IV SCH ×2 (02:32→15:59)
[2019-09-11 06:00] VITALS: BP 184/85
[2019-09-11 06:23] LABS: HEMATOCRIT 26.1 % (42.0-52.0); HEMOGLOBIN 8.3 g/dl (13.5-17.5); MEAN CORPUSCULAR HEMOGLOBIN 32.3 pg (27.0-33.0); MEAN CORPUSCULAR HGB CONC 31.8 g/dl (32.0-36.5); MEAN CORPUSCULAR VOLUME 101.6 fl (80.0-96.0); PLATELET COUNT, AUTOMATED 285 10^3/uL (150-450); RED BLOOD COUNT 2.57 10^6/uL (4.30-6.10); WHITE BLOOD COUNT 16.8 10^3/uL (4.0-10.0)
[2019-09-11 06:30] VITALS: BP 149/80
[2019-09-11 07:00] LABS: CALCIUM LEVEL 8.3 MG/DL (8.8-10.2); GLOMERULAR FILTRATION RATE 4.6 (>49); MAGNESIUM LEVEL 2.1 MG/DL (1.8-2.4); POTASSIUM SERUM 4.3 MEQ/L (3.5-5.1)
[2019-09-11] MEDS: HumaLOG INSULIN (NovoLOG) PER UNIT SC SCH ×4 (08:28→21:00)
[2019-09-11] MEDS: LEVEMIR (INSULIN DETEMIR) 1 UNITS/0.01ML SC SCH ×2 (08:28→22:00)
[2019-09-11] MEDS: CALCITRIOL 0.25 MCG CAP (S0169) PO SCH (08:29)
[2019-09-11] MEDS: ASPIRIN 81 MG ENTERIC TAB PO SCH (08:29)
[2019-09-11] MEDS: CLOPIDOGREL 75 MG TAB PO SCH (08:30)
[2019-09-11] MEDS: LACTOBACILLUS ACIDOPHILUS CAP (BACID) PO SCH ×4 (08:30→22:01)
[2019-09-11] MEDS: VITAMIN D 1,000 INTERNATIONAL UNITS TABLET PO SCH (08:30)
[2019-09-11] MEDS: SUCROFERRIC OXYHYDROXIDE 500MG CHEW TAB (VELPHORO) PO SCH ×3 (08:31→18:03)
[2019-09-11] MEDS: ATROPINE SULFATE 1% OP SOLN 2 ML BTL OS SCH (08:31)
[2019-09-11] MEDS: DILTIAZEM 60 MG PO SCH (08:31)
[2019-09-11] MEDS: prednisoLONE ACET 1% OPHTH SUSP 5ML OS SCH ×2 (08:31→22:02)
[2019-09-11] MEDS: BRINZOLAMIDE 1 % OPHTH SUSP (AZOPT) 10ML OS SCH ×2 (08:32→22:02)
[2019-09-11] MEDS: COMBIGAN (PATIENT'S OWN MED) OU SCH ×2 (08:33→22:02)
--- NOTE | 2019-09-11 10:34 | IPNPDOC ---
Text Note Date of Service The patient was seen on 09/11/19. NOTE Vascular surgery. Dr. Andrew The patient is a 63-year-old male with history of PAD and gangrene of the toes right foot. The patient is status post arteriogram left lower extremity 08/23/19 with [employer] intervention as per Dr. Carbone. The patient was admitted 09/09/19 with worsening right foot wounds. Status post arteriogram as per Dr. Andrew 09/11/19 with intervention. The patient's left groin site is examined with dressing intact, no surrounding erythema or swelling. Peritoneal dialysis as per nephrology. Continue with wound care as per podiatry. IV antibiotics as per medicine service. Patient remains on aspirin 81 mg daily, Zocor. Plavix restarted this AM as per Medicine after d/w Podiatry. Continue to monitor. VS,Fishbone, I+O VS, Fishbone, I+O Laboratory Tests 09/11/19 05:39 Vital Signs Date Time Temp Pulse Resp B/P (MAP) Pulse Ox O2 Delivery O2 Flow Rate FiO2 09/11/19 06:30 149/80 (103) 09/11/19 06:00 97.7 82 15 97 Room Air 09/10/19 18:00 3 I&O- Last 24 Hours up to 6 AM 09/11/19 05:59 Intake Total 8875 ml Output Total 8950 ml Balance -75 ml Dulce Espinal Sep 11, 2019 10:34
--- NOTE | 2019-09-11 13:29 | IPNPDOC ---
Date Seen The patient was seen on 09/11/19. Progress Note SUBJECTIVE: Patient seen stable this morning. He tolerated the arteriogram last night very well. He has no complaints. He was started on his aspirin and Plavix. He will be evaluated by Dr. Chowdary later this morning to see when he will need lower extremity medicine. Patient denies chest pain, shortness breath, nausea, vomiting, fevers, and chills. He is tolerating his peritoneal dialysis as well. OBJECTIVE PHYSICAL EXAMINATION: VITAL SIGNS: See below GENERAL: Pleasant 63-year-old male laying up in bed awake alert oriented speaking in complete sentences no acute distress HEENT: Atraumatic, normocephalic mucous membranes, large neck girth, no visible JVD CARDIOVASCULAR: S1 S2 regular no additional heart sounds appreciated. RESPIRATORY: Clear to auscultation bilaterally. ABDOMINAL: Bowel sounds present but distant. Abdomen distended with a peritoneal dialysis catheter is in place with peritoneal fluid. Denies tenderness with palpation EXTREMITIES: Bilateral pitting edema right worse than left up to mid calves. Unable to assess pedal pulses bilaterally. Dry gangrenous necrotic first toe on the right, as well as 3rd and 4th black with slight erythema at the base of the toes 2-5. No increased warmth of the lower extremities. No tenderness to palpation of the toes and foot. Foul smell is still present but improving as well. NEUROLOGICAL: no gross focal deficits appreciated. Decreased sensation in the lower extremities up to knees (chronic the last 5 years) PSYCHOLOGICAL: Appropriate LABORATORY DATA: See below. MICROBIOLOGY: Please see below. IMAGIN09/09/2019 Foot x-ray - There are no comparisons.There is diffuse demineralization.There are no focal lytic, blastic or destructive skeletal changes to suggest osteomyelitis. I suspect circumferential soft tissue edema. This should be confirmed clinically. There is heavily calcified vascular atheroma. No fracture or dislocation. Calcaneal spurs. Vascular ultrasound - No evidence of deep venous thrombosis of the right lower extremity femoral popliteal venous system. ASSESSMENT & PLAN: This is a 63-year-old male presenting Dry gangrene of the right toes, 1-4. PROBLEMS: 1.PAD with Dry gangrene of the right toes, 1-4.. S/p Angioplasty of the right PT AT and peroneal on 08/23/2019. Exam consistent with possible progressive vascular changes of the lower extermity. Venous ultrasounds of the lower extremity is negative for DVTs.. , Arterial duplex study show occlusion of the posterior tibial artery. Arteriogram on 09/10/[address] Rizzo. Will continue with aspirin and restart Plavix this AM. Continue with Zosyn PD dose till Monday then transition to PO antibiotics. Dr. Chowdary consulted, possible surgery , Dual antiplatelet therapy will be held only the morning of Monday. Activity as tolerated. PT consulted 2. Diabetes mellitus, complicated by retinopathy and neuropathy. Consistent carbohydrate diet. Continue with long-acting coverage 65 units daily and 45 units daily at bedtime. Insulin sliding scale on board. 3. Hyperlipidemia.c/w Zocor 4. Hypertension with hypertensive heart disease c/w losartan and should bring home diltiazem 60 mg extended release secondary continued while admitted. 5. End-stage renal disease on peritoneal dialysis. Nephrology consulted. c/w home vitamin D, and Calcitrol. 6. Glaucoma. c/w eyedrops as prescribed outpatient 7. Diastolic CHF and chronic right heart failure : with mild fluid overload. Fluid management with PD. DVT PROPHYLAXIS: start Heparin BID DISPOSITION: continue with antibiotics, restart plavix and continue with ASA, possible podiatry surgery Monday, VS, I&O, 24H, [facility] Vital Signs/I&O Vital Signs Date Time Temp Pulse Resp B/P (MAP) Pulse Ox O2 Delivery O2 Flow Rate FiO2 09/11/19 01:30 144/71 (95) 09/10/19 22:00 97.3 92 18 95 Room Air 09/10/19 18:00 3 I&O- Last 24 Hours up to 6 AM 09/11/19 06:00 Intake Total 8875 ml Output Total 8950 ml Balance -75 ml Laboratory Data 24H LABS Laboratory Tests 2 09/10/19 06:26: Nucleated Red Blood Cells % (auto) 0.0, Anion Gap 8, Glomerular Filtration Rate 4.3L, Calcium Level 9.2, Magnesium Level 2.1 09/10/19 06:35: Estimated Mean Plasma Glucose 186H, Hemoglobin A1c 8.1 09/10/19 11:45: Bedside Glucose (Misc Panel) 235H 09/10/19 18:56: Bedside Glucose (Misc Panel) 221H 09/10/19 21:00: Bedside Glucose (Misc Panel) 338H CBC/BMP Laboratory Tests 09/10/19 06:26 Microbiology Microbiology 09/09/19 Blood Culture - Preliminary, Resulted No growth after 24 hours . All specim... 09/09/19 Blood Culture - Preliminary, Resulted No growth after 24 hours . All specim... Attending Note I personally saw and evaluated the patient. I agree with the findings and the plan of care documented above in the resident's note. Sugars may be running high as pateint getting 4.25% exchanges x 2 in a day. if high will increase levemir Fluid overload so the pd solution changed to 4.25 x 2 exchanges KELLY EPPS DO Sep 11, 2019 06:30 LEENA ORNELAS MD Sep 12, 2019 21:10
[2019-09-11 14:00] VITALS: BP 153/77
[2019-09-11] MEDS ORDERED: IRON SUCROSE 300 MG in NS 250 ML OVER 90 MIN. IV ONE (14:00)
[2019-09-11] MEDS ORDERED: IRON SUCROSE 100MG 5ML VIAL (J1756 PER 1MG) IV ONE (14:00)
--- NOTE | 2019-09-11 17:39 | IPN ---
DATE: 09/11/2019 The patient is seen and examined. He had his angioplasty yesterday. He states it does seem to feel better to his right foot. Denies other complaints overnight. Vital signs are reviewed. White blood cell count 16.8. LOWER EXTREMITY EXAMINATION: No further gangrenous changes. There is some viability to the fourth toe with capillary refills. The eschar does appear superficial on the third toe. There is largely ruborous discoloration of the entire digit but there is some slight capillary refill, albeit delayed. The hallux has full eschar with no blood flow at all to the distal margins. ASSESSMENT: A patient with diabetes, peripheral vascular disease, status post angioplasty with improvement in blood flow. PLAN: We will monitor toes for a day or two. He will be scheduled for amputation of the left hallux on Monday tentatively with third toe unless further improvement noted. We will follow.
--- NOTE | 2019-09-11 18:21 | IPN ---
DATE: 09/11/2019 SUBJECTIVE: The patient is seen and examined today at the bedside. Reports no issues with his peritoneal dialysis exchanges but does complain of some mild edema in the legs. He is status post arteriogram with angioplasty of the right lower extremity with Dr. Kamran alvarez yesterday. VITAL SIGNS: Temperature 97.7, pulse 82, respiratory rate 15, blood pressure 149/80, saturating 97% on room air. Review of intake and output yesterday shows he is positive 300 mL. Weight in the bed scale today is not recorded. GENERAL: The patient was seen sitting at the edge of the bed, legs dangling, awake, alert, oriented, interactive, smiling, making jokes, in no apparent distress. Extraocular muscles are intact. Neck is supple. Jugular veins were not elevated while he was sitting upright. Heart sounds are regular, S1, S2. Radial pulses palpable. Lungs are clear to auscultation bilaterally. No crackle or rale. Abdomen is soft and nontender. There is peritoneal dialysis fluid in situ. The peritoneal dialysis (PD) catheter exit site is clean, dry and intact. Extremities show 1+ edema, right more so than left. The right toes are not examined today. NEUROLOGIC: He is oriented times three, interactive, conversational and at baseline mentation. PSYCHIATRIC: Appropriate mood and effect. LABORATORY DATA: White count 16.8, hemoglobin 8.3, platelets 285. Sodium 136, potassium 4.3, A1c 8.1%, transferrin saturation 18%, iron 35. MICROBIOLOGY: Blood cultures with no growth for 48 hours times two sets. INPATIENT MEDICATIONS: He is scheduled to receive Venofer 300 mg IV times one this afternoon. He was started on Plavix 75 mg by mouth daily. His remainder of medications are unchanged from prior. PROBLEMS: 1. End-stage renal disease on peritoneal dialysis. The patient's peritoneal dialysis exchanges are going well. He is mildly hypervolemic. Two of the exchanges will be 4.25%. The remainder three exchanges will be 2.5%. This should help with ultrafiltration and fluid removal. His electrolytes are acceptable. His peritoneal cell count was negative for infection. 2. Anemia with iron deficiency, chronic renal failure and chronic inflammatory state. Ferritin about 1000, transferrin saturation low at 18%. He is scheduled to receive Venofer 300 mg IV times one today and his Aranesp is increased to 200 mcg tomorrow. Target hemoglobin is 10-11. 3. Peripheral arterial disease with gangrene of the toes of the right foot. His white count is slowly improving. He is afebrile. Antimicrobials are managed by the primary team. Blood cultures show no growth. He is status post arteriogram with right-sided angioplasty yesterday. He continues on aspirin, Plavix, statin. He is pending further podiatric intervention. 4. Hypertension. Blood pressures have been very labile, systolic ranging from 120s to 180s. His peritoneal dialysis prescription has been made a little bit more aggressive for increased fluid removal. I have not made any changes to the antihypertensive regimen. If blood pressures remain persistently elevated, his losartan can be increased.
[2019-09-11 22:00] VITALS: BP 151/76
[2019-09-11] MEDS: SIMVASTATIN 40 MG TAB PO SCH (22:01)
[2019-09-11] MEDS: HEPARIN SOD (PORCINE) 5000 UNITS/ML VIAL (J1644 PER 1000UNITS) SQ SCH (22:01)
[2019-09-11] MEDS: LOSARTAN 25 MG TAB PO SCH (22:02)
[2019-09-11] MEDS: LUMIGAN (PATIENT'S OWN MED) OU SCH (22:03)
[2019-09-12] MEDS: PIPERACILLIN/TAZOBACTAM SOD 4.5 GM in D5W MINI-BAG PLUS 50 ML IV SCH ×2 (03:39→14:18)
[2019-09-12 06:00] VITALS: BP 152/70
[2019-09-12 06:16] LABS: HEMATOCRIT 25.5 % (42.0-52.0); HEMOGLOBIN 8.1 g/dl (13.5-17.5); MEAN CORPUSCULAR HEMOGLOBIN 32.3 pg (27.0-33.0); MEAN CORPUSCULAR HGB CONC 31.8 g/dl (32.0-36.5); MEAN CORPUSCULAR VOLUME 101.6 fl (80.0-96.0); PLATELET COUNT, AUTOMATED 263 10^3/uL (150-450); RED BLOOD COUNT 2.51 10^6/uL (4.30-6.10); WHITE BLOOD COUNT 15.8 10^3/uL (4.0-10.0)
[2019-09-12 06:48] LABS: CALCIUM LEVEL 8.1 MG/DL (8.8-10.2); CREATININE FOR GFR 11.8 MG/DL (0.70-1.30); GLOMERULAR FILTRATION RATE 4.6 (>49); MAGNESIUM LEVEL 2.1 MG/DL (1.8-2.4); POTASSIUM SERUM 3.8 MEQ/L (3.5-5.1)
[2019-09-12 08:00] VITALS: BP 139/69
[2019-09-12] MEDS: SUCROFERRIC OXYHYDROXIDE 500MG CHEW TAB (VELPHORO) PO SCH ×3 (08:00→18:06)
[2019-09-12] MEDS: HumaLOG INSULIN (NovoLOG) PER UNIT SC SCH ×4 (08:14→20:37)
[2019-09-12] MEDS: LACTOBACILLUS ACIDOPHILUS CAP (BACID) PO SCH ×4 (09:00→21:55)
[2019-09-12] MEDS ORDERED: DARBEPOETIN 100 MCG/0.5 ML *NON-DIALYSIS* SYRINGE (J0881) SC SCH ×2 (09:00)
[2019-09-12] MEDS: VITAMIN D 1,000 INTERNATIONAL UNITS TABLET PO SCH (09:21)
[2019-09-12] MEDS: ASPIRIN 81 MG ENTERIC TAB PO SCH (09:23)
[2019-09-12] MEDS: CLOPIDOGREL 75 MG TAB PO SCH (09:24)
[2019-09-12] MEDS: CALCITRIOL 0.25 MCG CAP (S0169) PO SCH (09:24)
[2019-09-12] MEDS: LEVEMIR (INSULIN DETEMIR) 1 UNITS/0.01ML SC SCH ×2 (09:26→21:57)
[2019-09-12] MEDS: HEPARIN SOD (PORCINE) 5000 UNITS/ML VIAL (J1644 PER 1000UNITS) SQ SCH ×2 (09:27→21:56)
[2019-09-12] MEDS: COMBIGAN (PATIENT'S OWN MED) OU SCH ×2 (09:29→21:58)
[2019-09-12] MEDS: BRINZOLAMIDE 1 % OPHTH SUSP (AZOPT) 10ML OS SCH ×2 (09:30→21:57)
[2019-09-12] MEDS: ATROPINE SULFATE 1% OP SOLN 2 ML BTL OS SCH (09:30)
[2019-09-12] MEDS: prednisoLONE ACET 1% OPHTH SUSP 5ML OS SCH ×2 (09:30→21:58)
[2019-09-12] MEDS: DILTIAZEM 60 MG PO SCH (09:32)
--- NOTE | 2019-09-12 10:39 | IPNPDOC ---
Date Seen The patient was seen on 09/12/19. Progress Note SUBJECTIVE: Patient seen stable this morning. He is in good spirit. He has no complaints this morning. Patient denies chest pain, shortness breath, nausea, vomiting, fevers, and chills. He is tolerating his peritoneal dialysis as well. OBJECTIVE PHYSICAL EXAMINATION: VITAL SIGNS: See below GENERAL: Pleasant 63-year-old male laying up in bed awake alert oriented speaking in complete sentences no acute distress HEENT: Atraumatic, normocephalic mucous membranes, large neck girth, no visible JVD CARDIOVASCULAR: S1 S2 regular no additional heart sounds appreciated. RESPIRATORY: Clear to auscultation bilaterally. ABDOMINAL: Bowel sounds present but distant. Abdomen distended with a peritoneal dialysis catheter is in place with peritoneal fluid. Denies tenderness with palpation EXTREMITIES: Bilateral pitting edema right worse than left up to mid calves. Still unable to assess pedal pulses bilaterally due to edema. Dry gangrenous necrotic first toe on the right, as well as 3rd and 4th black with slight erythema at the base of the toes 2-5. No increased warmth of the lower extremities. No tenderness to palpation of the toes and foot. Foul smell resolved. NEUROLOGICAL: no gross focal deficits appreciated. Decreased sensation in the lower extremities up to knees (chronic the last 5 years) PSYCHOLOGICAL: Appropriate LABORATORY DATA: See below. MICROBIOLOGY: Please see below. IMAGIN09/09/2019 Foot x-ray - There are no comparisons.There is diffuse demineralization.There are no focal lytic, blastic or destructive skeletal changes to suggest osteomyelitis. I suspect circumferential soft tissue edema. This should be confirmed clinically. There is heavily calcified vascular atheroma. No fracture or dislocation. Calcaneal spurs. Vascular ultrasound - No evidence of deep venous thrombosis of the right lower extremity femoral popliteal venous system. ASSESSMENT & PLAN: This is a 63-year-old male presenting Dry gangrene of the r ight toes, 1-4. PROBLEMS: 1. Dry and Wet gangrene of the right toes, 1-4.. S/p Angioplasty of the right PT AT and peroneal on 08/23/2019. Exam consistent with possible progressive vascular changes of the lower extermity. Venous ultrasounds of the lower extremity is negative for DVTs. , Arterial duplex study show occlusion of the posterior tibial artery. Arteriogram on 09/10/[address] Rizzo. Will continue with aspirin and Plavix . Continue with Zosyn PD dose till Monday then transition to PO antibiotics. Dr. Chowdary consulted, possible surgery , Dual antiplatelet therapy will be held only the morning of Monday. Activity as tolerated. PT consulted 2. Diabetes mellitus, complicated by retinopathy and neuropathy. Consistent carbohydrate diet. Continue with long-acting coverage 65 units daily and 45 units daily at bedtime. Insulin sliding scale on board. 3. Hyperlipidemia.c/w Zocor 4. Hypertension. c/w losartan and should bring home diltiazem 60 mg extended release secondary continued while admitted. 5. End-stage renal disease on peritoneal dialysis. Nephrology consulted. c/w home vitamin D, and Calcitrol. 6. Glaucoma. c/w eyedrops as prescribed outpatient DVT PROPHYLAXIS: start Heparin BID DISPOSITION: continue with antibiotics, possible podiatry surgery Monday, VS, I&O, 24H, Fishbone Vital Signs/I&O Vital Signs Date Time Temp Pulse Resp B/P (MAP) Pulse Ox O2 Delivery O2 Flow Rate FiO2 09/12/19 06:00 99.4 82 18 152/70 (97) 97 Room Air 09/10/19 18:00 3 I&O- Last 24 Hours up to 6 AM 09/12/19 06:00 Intake Total 49616 ml Output Total 61164 ml Balance -915 ml Laboratory Data 24H LABS Laboratory Tests 2 09/11/19 12:25: Bedside Glucose (Misc Panel) 202H 09/11/19 16:19: Bedside Glucose (Misc Panel) 240H 09/11/19 21:15: Bedside Glucose (Misc Panel) 244H 09/12/19 05:58: Nucleated Red Blood Cells % (auto) 0.0, Anion Gap 8, Glomerular Filtration Rate 4.6L, Calcium Level 8.1L, Magnesium Level 2.1 CBC/BMP Laboratory Tests 09/12/19 05:58 Microbiology Microbiology 09/09/19 Blood Culture - Preliminary, Resulted No Growth after 48 hours. All Specime... 09/09/19 Blood Culture - Preliminary, Resulted No Growth after 48 hours. All Specime... Attending Note I personally saw and evaluated the patient. I agree with the findings and the plan of care documented above in the resident's note. KELLY EPPS DO Sep 12, 2019 10:39 LEENA ORNELAS MD Sep 13, 2019 12:13
[2019-09-12] MEDS: LOSARTAN 25 MG TAB PO SCH ×2 (12:59→21:56)
[2019-09-12 14:00] VITALS: BP 140/95
[2019-09-12] MEDS: MUPIROCIN 2% OINT 22 GM TUBE TOP SCH (15:08)
--- NOTE | 2019-09-12 16:08 | IPN ---
DATE OF SERVICE: 09/12/2019 SUBJECTIVE: Jai is seen and examined this morning at the bedside. He had a good night. He has been evaluated by podiatry. He reports his peripheral edema has improved. He denies chest pain, shortness of breath. Peritoneal dialysis (PD) exchanges have been going well without issues. Temperature 98, pulse 82, respiratory rate 16, blood pressure 139/69, saturating 97% on room air. Intake and output from yesterday show net negative 1.1 liter. Weight in the bed scale today is not recorded. General: The patient is seen sitting up at the edge of the bed, legs dangling, awake, alert, oriented, interactive, in good spirits, making jokes. Extraocular muscles are intact. Ears, nose, and throat are unremarkable. No jugular vein distension. Heart sounds are regular. S1, S2. There is 1+ edema in the right leg and trace edema in the left leg. Lungs are clear to auscultation bilaterally. No crackle, rale or rhonchus. Abdomen is soft and nontender. There is peritoneal dialysis fluid PD catheter exit site is slightly traumatized. Extremities: There is 1+ edema in the right lower extremity and trace edema in the left. His foot was not examined today. Neurologic: He is oriented times three, interactive and conversational, at baseline mentation. Psychiatric: Appropriate mood and affect. LABS: White count 15.8, hemoglobin 8.1, platelet 263. Sodium 139, potassium 3.8, magnesium 2.1. Blood cultures with no growth for two sets times 72 hours. INPATIENT MEDICATIONS: He received a dose of Aranesp today. He received Venofer 300 mg IV yesterday. His insulin was adjusted by the primary team. I increased his losartan to 25 mg twice daily. Bactroban was ordered for PD catheter exit site care. Remainder of medications are unchanged from prior. PROBLEMS: 1. End-stage renal disease on peritoneal dialysis. PD exchanges are going well. His volume status is improving. He is net negative 1.1 liters in the past 24 hours. His exchanges are 2.5%. Two exchanges are 4.25%. His electrolytes are acceptable. PD catheter exit site was mildly traumatized and Bactroban has been ordered topically. 2. Anemia with iron deficiency, chronic renal failure and chronic inflammatory state. Ferritin about 1000, transferrin saturation low at 18%. He received Venofer 300 mg IV yesterday and he received Aranesp 200 mcg subcu today. I would plan to give him another dose of Venofer over the weekend. 3. Hypertension. Blood pressures have been systolic 130s-150s and are overall improved over the course of the admission. I slightly increased his losartan dose to 25 mg twice a day. 4. Peripheral arterial disease with gangrene of toes of the right foot. His white count is improving. Antimicrobials are managed by the primary team. Blood cultures have been negative. He is status post arteriogram with right-sided angioplasty. He continues on aspirin, Plavix, statin and is pending podiatry followup. Possible surgery on Monday.
[2019-09-12] MEDS ORDERED: LEVEMIR (INSULIN DETEMIR) 1 UNITS/0.01ML SC SCH (21:00)
[2019-09-12] MEDS: SIMVASTATIN 40 MG TAB PO SCH (21:55)
[2019-09-12] MEDS: LUMIGAN (PATIENT'S OWN MED) OU SCH (21:59)
[2019-09-12 22:00] VITALS: BP 150/70
[2019-09-13] MEDS: PIPERACILLIN/TAZOBACTAM SOD 4.5 GM in D5W MINI-BAG PLUS 50 ML IV SCH ×2 (02:32→14:51)
[2019-09-13 06:00] VITALS: BP 151/69
[2019-09-13 06:28] LABS: HEMATOCRIT 27.1 % (42.0-52.0); HEMOGLOBIN 8.6 g/dl (13.5-17.5); MEAN CORPUSCULAR HEMOGLOBIN 32.5 pg (27.0-33.0); MEAN CORPUSCULAR HGB CONC 31.7 g/dl (32.0-36.5); MEAN CORPUSCULAR VOLUME 102.3 fl (80.0-96.0); PLATELET COUNT, AUTOMATED 274 10^3/uL (150-450); RED BLOOD COUNT 2.65 10^6/uL (4.30-6.10); WHITE BLOOD COUNT 18.6 10^3/uL (4.0-10.0)
[2019-09-13 07:04] LABS: CALCIUM LEVEL 9.2 MG/DL (8.8-10.2); CREATININE FOR GFR 12.1 MG/DL (0.70-1.30); GLOMERULAR FILTRATION RATE 4.5 (>49); MAGNESIUM LEVEL 2.2 MG/DL (1.8-2.4); POTASSIUM SERUM 3.7 MEQ/L (3.5-5.1)
[2019-09-13] MEDS: SUCROFERRIC OXYHYDROXIDE 500MG CHEW TAB (VELPHORO) PO SCH ×3 (08:00→16:46)
[2019-09-13] MEDS: LEVEMIR (INSULIN DETEMIR) 1 UNITS/0.01ML SC SCH (08:26)
[2019-09-13] MEDS: HEPARIN SOD (PORCINE) 5000 UNITS/ML VIAL (J1644 PER 1000UNITS) SQ SCH (08:27)
[2019-09-13] MEDS: HumaLOG INSULIN (NovoLOG) PER UNIT SC SCH ×4 (08:27→21:00)
[2019-09-13] MEDS: CALCITRIOL 0.25 MCG CAP (S0169) PO SCH (08:29)
[2019-09-13] MEDS: DILTIAZEM 60 MG PO SCH (08:29)
[2019-09-13] MEDS: VITAMIN D 1,000 INTERNATIONAL UNITS TABLET PO SCH (08:29)
[2019-09-13] MEDS: CLOPIDOGREL 75 MG TAB PO SCH (08:29)
[2019-09-13] MEDS: ASPIRIN 81 MG ENTERIC TAB PO SCH (08:29)
[2019-09-13] MEDS: LACTOBACILLUS ACIDOPHILUS CAP (BACID) PO SCH ×3 (08:30→22:15)
[2019-09-13] MEDS: LOSARTAN 25 MG TAB PO SCH ×2 (08:30→22:14)
[2019-09-13] MEDS: prednisoLONE ACET 1% OPHTH SUSP 5ML OS SCH ×2 (08:31→22:15)
[2019-09-13] MEDS: BRINZOLAMIDE 1 % OPHTH SUSP (AZOPT) 10ML OS SCH ×2 (08:31→22:15)
[2019-09-13] MEDS: ATROPINE SULFATE 1% OP SOLN 2 ML BTL OS SCH (08:31)
[2019-09-13] MEDS: COMBIGAN (PATIENT'S OWN MED) OU SCH ×2 (08:31→22:16)
[2019-09-13] MEDS: MUPIROCIN 2% OINT 22 GM TUBE TOP SCH (08:32)
--- NOTE | 2019-09-13 10:17 | IPNPDOC ---
Date Seen The patient was seen on 09/13/19. Progress Note SUBJECTIVE: Patient seen and examined this morning. He has no complaints. Patient denies chest pain, shortness breath, nausea, vomiting, fevers, and chills. He is tolerating his peritoneal dialysis as well. OBJECTIVE PHYSICAL EXAMINATION: VITAL SIGNS: See below GENERAL: Pleasant 63-year-old male laying up in bed awake alert oriented speaking in complete sentences no acute distress HEENT: Atraumatic, normocephalic mucous membranes, large neck girth, no visible JVD CARDIOVASCULAR: S1 S2 regular no additional heart sounds appreciated. RESPIRATORY: Clear to auscultation bilaterally. ABDOMINAL: Bowel sounds present but distant. Abdomen distended with a peritoneal dialysis catheter is in place with peritoneal fluid. Denies tenderness with palpation EXTREMITIES: Bilateral pitting edema (improving). Still unable to assess pedal pulses bilaterally due to edema. Dry gangrenous necrotic first toe on the right, as well as 3rd and 4th black with slight erythema at the base of the toes 2-5. No increased warmth of the lower extremities. No tenderness to palpation of the toes and foot. Foul smell resolved. NEUROLOGICAL: no gross focal deficits appreciated. Decreased sensation in the lower ext remities up to knees (chronic the last 5 years) PSYCHOLOGICAL: Appropriate LABORATORY DATA: See below. MICROBIOLOGY: Please see below. IMAGIN09/09/2019 Foot x-ray - There are no comparisons.There is diffuse demineralization.There are no focal lytic, blastic or destructive skeletal changes to suggest osteomyelitis. I suspect circumferential soft tissue edema. This should be confirmed clinically. There is heavily calcified vascular atheroma. No fracture or dislocation. Calcaneal spurs. Vascular ultrasound - No evidence of deep venous thrombosis of the right lower extremity femoral popliteal venous system. ASSESSMENT & PLAN: This is a 63-year-old male presenting Dry gangrene of the right toes, 1-4. PROBLEMS: 1. Dry and Wet gangrene of the right toes: 1st, 3rd and 4th.. S/p Angioplasty of the right PT AT and peroneal on 08/23/2019. Exam consistent with possible progressive vascular changes of the lower extermity. Venous ultrasounds of the lower extremity is negative for DVTs. , Arterial duplex study show occlusion of the posterior tibial artery. Arteriogram on 09/10/[address] Cedsrstrand. Will continue with aspirin and Plavix . Continue with Zosyn PD dose till Monday then transition to PO antibiotics. Dr. Chowdary consulted, possible surgery , Dual antiplatelet therapy will be held only the morning of Monday. Activity as tolerated. PT consulted 2. Diabetes mellitus, complicated by retinopathy and neuropathy. Consistent carbohydrate diet. Continue with long-acting coverage 65 units daily and increase nightime insulin to 50 units . Insulin sliding scale on board. 3. Hyperlipidemia.c/w Zocor 4. Hypertension. c/w losartan and should bring home diltiazem 60 mg extended release secondary continued while admitted. 5. End-stage renal disease on peritoneal dialysis. Nephrology consulted. c/w home vitamin D, and Calcitrol. 6. Glaucoma. c/w eyedrops as prescribed outpatient DVT PROPHYLAXIS: start Heparin BID DISPOSITION: continue with antibiotics, possible podiatry surgery Monday, VS, I&O, 24H, Fishbone Vital Signs/I&O Vital Signs Date Time Temp Pulse Resp B/P (MAP) Pulse Ox O2 Delivery O2 Flow Rate FiO2 09/13/19 08:30 120/66 09/13/19 06:00 97.6 85 16 97 Room Air 09/10/19 18:00 3 I&O- Last 24 Hours up to 6 AM 09/13/19 06:00 Intake Total 62020 ml Output Total 39133 ml Balance -2600 ml Laboratory Data 24H LABS Laboratory Tests 2 09/12/19 12:20: Bedside Glucose (Misc Panel) 189H 09/12/19 16:56: Bedside Glucose (Misc Panel) 243H 09/12/19 20:36: Bedside Glucose (Misc Panel) 154H 09/13/19 05:59: Nucleated Red Blood Cells % (auto) 0.0, Anion Gap 11, Glomerular Filtration Rate 4.5L, Calcium Level 9.2, Magnesium Level 2.2 CBC/BMP Laboratory Tests 09/13/19 05:59 Microbiology Microbiology 09/09/19 Blood Culture - Preliminary, Resulted No Growth after 72 hours. All specime... 09/09/19 Blood Culture - Preliminary, Resulted No Growth after 72 hours. All specime... Attending Note I personally saw and evaluated the patient. I agree with the findings and the plan of care documented above in the resident's note. KELLY EPPS DO Sep 13, 2019 10:17 LEENA ORNELAS MD Sep 13, 2019 12:14
[2019-09-13 14:00] VITALS: BP 126/65
--- NOTE | 2019-09-13 15:04 | IPN ---
DATE: 09/13/2019 The patient was seen and examined. Denies any complaints. Laboratories were reviewed. White blood cell count is 18.6. He has remained afebrile. Lower extremity examination showed no further gangrenous changes noted. There is no capillary refill to the right third toe or hallux. ASSESSMENT: 63-year-old diabetic male with peripheral vascular disease, status post angioplasty. PLAN: We will plan for amputation of right hallux and third toe tomorrow morning. He should be nothing by mouth after midnight and hold anticoagulation, which can be resumed the next day postoperatively.
--- NOTE | 2019-09-13 16:28 | IPN ---
DATE OF SERVICE: 09/13/2019 SUBJECTIVE: Jai is seen and examined this morning at the bedside. He denies any overnight complaints. Peritoneal dialysis (PD) has been performed without any issues. Blood pressure control has improved. Vital Signs: Temperature 97.6, pulse 85, respiratory rate 16, blood pressure 151/69, saturating 97% on room air. Review of intake and output yesterday shows net negative 1780. Weight in the bed scale today is not recorded. General: The patient is seen awake, alert, oriented, comfortable, interactive and sitting up in bed. Extraocular muscles are intact. Ears, nose, and throat are unremarkable. Jugular veins were not elevated. Heart sounds are regular. S1, S2. Lungs are clear to auscultation bilaterally. No crackle, rale or rhonchus. Abdomen is soft and nontender. PD catheter exit site is unremarkable. PD fluid is in situ. The right lower extremity has 1+ edema. The left lower extremity has trace to 1+ edema. Neurologic: Oriented times three. No focal deficit. At baseline mentation. Psychiatric: Appropriate mood and affect. White count 18.6, hemoglobin 8.6, platelets 274. Sodium 138, potassium 3.7, magnesium 2.2. INPATIENT MEDICATIONS: Plavix has been held. Insulin was adjusted by the primary team. Remainder of medications are unchanged from prior. PROBLEMS: 1. End-stage renal disease on peritoneal dialysis. PD exchanges are going well. He continues on five exchanges daily. Three are 2.5% and two are 4.25%. His volume status is improving. His electrolytes are acceptable. Continue current prescription. 2. Anemia related to chronic renal failure, iron deficiency, and inflammatory state. He received Aranesp on . He received Venofer 300 mg infusion a couple of days ago. I would redose Venofer over the weekend. His hemoglobin is suboptimal but stable at 8.6. 3. Hypertension. Blood pressures have improved nicely. His losartan was increased to 25 mg by mouth twice daily. 4. Dry and wet gangrene of toes of the right foot in the setting of peripheral vascular disease status post angioplasty of the right lower extremity. Pending microbiology manager intervention over the weekend.
[2019-09-13] MEDS ORDERED: LEVEMIR (INSULIN DETEMIR) 1 UNITS/0.01ML SC ONE ×2 (21:00)
[2019-09-13 22:00] VITALS: BP 127/76
[2019-09-13] MEDS ORDERED: HEPARIN SOD (PORCINE) 5000 UNITS/ML VIAL (J1644 PER 1000UNITS) PD ONE (22:00)
[2019-09-13] MEDS: SIMVASTATIN 40 MG TAB PO SCH (22:14)
[2019-09-13] MEDS: LUMIGAN (PATIENT'S OWN MED) OU SCH (22:16)
[2019-09-14] VITALS (8 sets, daily range): BP systolic 126–157; BP diastolic 54–73
[2019-09-14] MEDS: PIPERACILLIN/TAZOBACTAM SOD 4.5 GM in D5W MINI-BAG PLUS 50 ML IV SCH ×2 (03:21→14:38)
[2019-09-14] MEDS: HumaLOG INSULIN (NovoLOG) PER UNIT SC SCH ×5 (07:11→21:18)
[2019-09-14] MEDS: SUCROFERRIC OXYHYDROXIDE 500MG CHEW TAB (VELPHORO) PO SCH ×5 (07:12→18:32)
[2019-09-14] MEDS ORDERED: MIDAZOLAM INJ 2 MG/2 ML VIAL (J2250) As Ordered ONE (07:23)
[2019-09-14] MEDS ORDERED: fentaNYL 100 MCG/2 ML INJECTION (J3010) As Ordered ONE (07:23)
[2019-09-14] MEDS ORDERED: ONDANSETRON 4MG/2ML VIAL (J2405) As Ordered ONE (07:23)
[2019-09-14] MEDS ORDERED: propofoL 200 MG/20 ML VIAL As Ordered ONE (07:24)
[2019-09-14] MEDS ORDERED: LIDOCAINE 2% INJ 100 MG/5 ML SDV (FOR ANES.) As Ordered ONE (07:24)
[2019-09-14 07:30] LABS: HEMATOCRIT 29.8 % (42.0-52.0); HEMOGLOBIN 9.5 g/dl (13.5-17.5); MEAN CORPUSCULAR HEMOGLOBIN 32.5 pg (27.0-33.0); MEAN CORPUSCULAR HGB CONC 31.9 g/dl (32.0-36.5); MEAN CORPUSCULAR VOLUME 102.1 fl (80.0-96.0); PLATELET COUNT, AUTOMATED 284 10^3/uL (150-450); RED BLOOD COUNT 2.92 10^6/uL (4.30-6.10)
[2019-09-14] MEDS ORDERED: LIDOCAINE 1% SDV INJ 30 ML VIAL As Ordered ONE (07:44)
[2019-09-14] MEDS ORDERED: BUPIVACAINE HCL 0.5% 10 ML VIAL As Ordered ONE (07:44)
[2019-09-14 08:01] LABS: CALCIUM LEVEL 8.6 MG/DL (8.8-10.2); CREATININE FOR GFR 11.8 MG/DL (0.70-1.30); GLOMERULAR FILTRATION RATE 4.6 (>49); MAGNESIUM LEVEL 2.2 MG/DL (1.8-2.4); POTASSIUM SERUM 4.3 MEQ/L (3.5-5.1)
[2019-09-14] MEDS ORDERED: ePHEDrine SULFATE 25 MG/5 ML(5MG/ML) SYRINGE As Ordered ONE (08:50)
[2019-09-14] MEDS ORDERED: ONDANSETRON 4MG/2ML VIAL (J2405) IV PRN (09:45)
[2019-09-14] MEDS ORDERED: NS 1,000 ML IV ONE (09:45)
[2019-09-14] MEDS ORDERED: oxyCODONE 5MG TAB PO PRN (09:45)
[2019-09-14] MEDS: CALCITRIOL 0.25 MCG CAP (S0169) PO SCH (10:18)
[2019-09-14] MEDS: LACTOBACILLUS ACIDOPHILUS CAP (BACID) PO SCH ×3 (10:18→21:17)
[2019-09-14] MEDS: VITAMIN D 1,000 INTERNATIONAL UNITS TABLET PO SCH (10:18)
[2019-09-14] MEDS: DILTIAZEM 60 MG PO SCH (10:19)
[2019-09-14] MEDS: LEVEMIR (INSULIN DETEMIR) 1 UNITS/0.01ML SC SCH ×2 (10:19→21:18)
[2019-09-14] MEDS: ATROPINE SULFATE 1% OP SOLN 2 ML BTL OS SCH (10:20)
[2019-09-14] MEDS: prednisoLONE ACET 1% OPHTH SUSP 5ML OS SCH ×2 (10:20→21:16)
[2019-09-14] MEDS: LOSARTAN 25 MG TAB PO SCH ×2 (10:20→21:17)
[2019-09-14] MEDS: BRINZOLAMIDE 1 % OPHTH SUSP (AZOPT) 10ML OS SCH ×2 (10:20→21:16)
[2019-09-14] MEDS: MUPIROCIN 2% OINT 22 GM TUBE TOP SCH (10:21)
[2019-09-14] MEDS: COMBIGAN (PATIENT'S OWN MED) OU SCH ×2 (10:21→21:15)
--- NOTE | 2019-09-14 10:35 | IPNPDOC ---
Date Seen The patient was seen on 09/14/19. Progress Note SUBJECTIVE: Patient seen and examined this morning at PACU, for he is on his way for his toe amputation. He has no complaints, Sugar were low the night before at 95 but heonly got 12.5 units of levemir last night and his sugars have been above 200 this morning. He denies any hypoglycemic episodes and had no holds for the procedure later this morning.. Patient denies chest pain, shortness breath, nausea, vomiting, fevers, and chills. OBJECTIVE PHYSICAL EXAMINATION: VITAL SIGNS: See below GENERAL: Pleasant 63-year-old male laying up in bed awake alert oriented speaking in complete sentences no acute distress HEENT: Atraumatic, normocephalic mucous membranes, large neck girth, no visible JVD CARDIOVASCULAR: S1 S2 regular no additional heart sounds appreciated. RESPIRATORY: Clear to auscultation bilaterally. ABDOMINAL: Bowel sounds present but distant. Abdomen distended with a peritoneal dialysis catheter is in place with peritoneal fluid. Denies tenderness with palpation EXTREMITIES: Bilateral pitting edema (improving). Still unable to assess pedal pulses bilaterally due to edema. Dry gangrenous necrotic first toe on the right, as well as 3rd and 4th black with slight erythema at the base of the toes 2-5. No increased warmth of the lower extremities. No tenderness to palpation of the toes and foot. NEUROLOGICAL: no gross focal deficits appreciated. Decreased sensation in the lower extremities up to knees (chronic the last 5 years) PSYCHOLOGICAL: Appropriate LABORATORY DATA: See below. MICROBIOLOGY: Please see below. IMAGIN09/09/2019 Foot x-ray - There are no comparisons.There is diffuse demineralization.There are no focal lytic, blastic or destructive skeletal changes to suggest osteomyelitis. I suspect circumferential soft tissue edema. This should be confirmed clinically. There is heavily calcified vascular atheroma. No fracture or dislocation. Calcaneal spurs. Vascular ultrasound - No evidence of deep venous thrombosis of the right lower extremity femoral popliteal venous system. ASSESSMENT & PLAN: This is a 63-year-old male presenting Dry gangrene of the right toes, 1-4. PROBLEMS: 1. Dry and Wet gangrene of the right toes: 1st, 3rd and 4th.. S/p Angioplasty of the right PT AT and peroneal on 08/23/2019. Exam consistent with possible progressive vascular changes of the lower extermity. Venous ultrasounds of the lower extremity is negative for DVTs. , Arterial duplex study show occlusion of the posterior tibial artery. Arteriogram on 09/10/[address] Rizzo. Will continue with aspirin and Plavix tomorrow . c/w zosyn PD dose till Monday then transition to PO antibiotics. Dr. Chowdary consulted, toe amputation of the right helix and third toe this morning. PT consulted 2. Diabetes mellitus, complicated by retinopathy and neuropathy. resume Consistent carbohydrate diet after procedure. Continue with long-acting coverage 65 units daily and nightime insulin to 50 units . Insulin sliding scale on board. 3. Hyperlipidemia.c/w Zocor 4. Hypertension. c/w losartan and should bring home diltiazem 60 mg extended release secondary continued while admitted. 5. End-stage renal disease on peritoneal dialysis. Nephrology consulted. c/w home vitamin D, and Calcitrol. 6. Glaucoma. c/w eyedrops as prescribed outpatient DVT PROPHYLAXIS: start Heparin BID DISPOSITION: continue with antibiotics and resume antiplatelet in the morning. possible D.C on monday. VS, I&O, 24H, Fishbone Vital Signs/I&O Vital Signs Date Time Temp Pulse Resp B/P (MAP) Pulse Ox O2 Delivery O2 Flow Rate FiO2 09/14/19 10:20 157/71 09/14/19 10:00 98.2 91 18 95 09/14/19 09:45 Room Air 09/14/19 09:17 10 I&O- Last 24 Hours up to 6 AM 09/14/19 06:00 Intake Total 19659 ml Output Total 33615 ml Balance -10 ml Laboratory Data 24H LABS Laboratory Tests 2 09/13/19 11:30: Bedside Glucose (Misc Panel) 266H 09/13/19 16:30: Bedside Glucose (Misc Panel) 336H 09/13/19 20:09: Bedside Glucose (Misc Panel) 95 09/14/19 07:19: Nucleated Red Blood Cells % (auto) 0.1H, Anion Gap 12, Glomerular Filtration Rate 4.6L, Calcium Level 8.6L, Magnesium Level 2.2 09/14/19 08:06: Bedside Glucose (Misc Panel) 230H 09/14/19 09:21: Bedside Glucose (Misc Panel) 231H CBC/BMP Laboratory Tests 09/14/19 07:19 Microbiology Microbiology 09/09/19 Blood Culture - Preliminary, Resulted No Growth after 72 hours. All specime... 09/09/19 Blood Culture - Preliminary, Resulted No Growth after 72 hours. All specime... Attending Note I personally saw and evaluated the patient. I agree with the findings and the plan of care documented above in the resident's note. KELLY EPPS DO Sep 14, 2019 10:35 LEENA ORNELAS MD Sep 14, 2019 17:32
--- NOTE | 2019-09-14 17:35 | IPN ---
DATE: 09/14/2019 Mr. Lawson is seen this morning on his bedside. His and other family members are present at the time of my visit. Patient underwent his right foot surgery and his right big toe was amputated. He is feeling better and denies any fever or chills. He has no dyspnea or chest pain. His peritoneal dialysis has been functioning. PHYSICAL EXAMINATION: Temperature 98.2 degrees Fahrenheit, heart rate 90 per minute and respiratory rate 16 per minute. Blood pressure 157/70 mmHg and oxygen saturation 95% on room air. His head is atraumatic. Neck is supple and jugular venous distention (JVD) not abnormally elevated. There is no oral thrush or ulcers. Heart sounds are regular and lungs sound clear to auscultation. Abdomen soft and nontender. Peritoneal dialysis catheter is intact and abdomen is slightly distended with peritoneal dialysis solution. Extremities have no cyanosis or clubbing. Right foot has dressing at the surgical site where he had his big toe amputated. Neurologically, he is awake, alert and oriented times three. Today's labs show a WBC count 18.0, hemoglobin 9.5 and hematocrit 29.8. Platelets 284. Sodium 138, potassium 4.3, CO2 30, chloride 96, BUN 61 and creatinine 11.8. PROBLEMS: 1. End-stage renal disease. Patient remains on peritoneal dialysis, which is functioning well, and we will continue with five exchanges per day. 2. Hypervolemia and peripheral edema. His volume status has improved significantly and nursing staff reports that he is draining at least 3-500 mL, even with 2.5% bags. I will stop to 4.25% bags and use only 2.5% now. 3. Anemia. His anemia is stable at present and does not need any urgent intervention. 4. Hypertension. Blood pressure seems reasonably well-controlled and we will continue with current antihypertensive medications. 5. Infected right foot wound. Patient had amputation done of his right big toe and is doing very well. He has been on Zosyn 4.5 grams every 12 hours. I feel that his dose will need to be adjusted for end-stage renal disease.
[2019-09-14] MEDS: LUMIGAN (PATIENT'S OWN MED) OU SCH (21:16)
[2019-09-14] MEDS: SIMVASTATIN 40 MG TAB PO SCH (21:17)
[2019-09-15 02:00] VITALS: BP 149/56
[2019-09-15] MEDS: PIPERACILLIN/TAZOBACTAM SOD 4.5 GM in D5W MINI-BAG PLUS 50 ML IV SCH ×2 (03:13→15:27)
[2019-09-15 06:00] VITALS: BP 124/72
[2019-09-15 06:03] LABS: HEMATOCRIT 29.6 % (42.0-52.0); MEAN CORPUSCULAR HEMOGLOBIN 31.6 pg (27.0-33.0); MEAN CORPUSCULAR HGB CONC 30.4 g/dl (32.0-36.5); MEAN CORPUSCULAR VOLUME 103.9 fl (80.0-96.0); PLATELET COUNT, AUTOMATED 269 10^3/uL (150-450); RED BLOOD COUNT 2.85 10^6/uL (4.30-6.10); WHITE BLOOD COUNT 16.5 10^3/uL (4.0-10.0)
[2019-09-15 06:33] LABS: CALCIUM LEVEL 9.1 MG/DL (8.8-10.2); GLOMERULAR FILTRATION RATE 4.6 (>49); MAGNESIUM LEVEL 2.3 MG/DL (1.8-2.4); POTASSIUM SERUM 4.1 MEQ/L (3.5-5.1)
[2019-09-15] MEDS: ATROPINE SULFATE 1% OP SOLN 2 ML BTL OS SCH (08:14)
[2019-09-15] MEDS: prednisoLONE ACET 1% OPHTH SUSP 5ML OS SCH ×2 (08:14→20:47)
[2019-09-15] MEDS: BRINZOLAMIDE 1 % OPHTH SUSP (AZOPT) 10ML OS SCH ×2 (08:14→20:49)
[2019-09-15] MEDS: HumaLOG INSULIN (NovoLOG) PER UNIT SC SCH ×4 (08:15→20:46)
[2019-09-15] MEDS: LEVEMIR (INSULIN DETEMIR) 1 UNITS/0.01ML SC SCH ×2 (08:15→20:46)
[2019-09-15] MEDS: COMBIGAN (PATIENT'S OWN MED) OU SCH ×2 (08:15→20:48)
[2019-09-15] MEDS: LOSARTAN 25 MG TAB PO SCH ×2 (08:16→20:47)
[2019-09-15] MEDS: ASPIRIN 81 MG ENTERIC TAB PO SCH (08:16)
[2019-09-15] MEDS: CLOPIDOGREL 75 MG TAB PO SCH (08:16)
[2019-09-15] MEDS: SUCROFERRIC OXYHYDROXIDE 500MG CHEW TAB (VELPHORO) PO SCH ×3 (08:16→17:27)
[2019-09-15] MEDS: CALCITRIOL 0.25 MCG CAP (S0169) PO SCH (08:16)
[2019-09-15] MEDS: HEPARIN SOD (PORCINE) 5000 UNITS/ML VIAL (J1644 PER 1000UNITS) SQ SCH ×2 (08:17→20:46)
[2019-09-15] MEDS: LACTOBACILLUS ACIDOPHILUS CAP (BACID) PO SCH ×3 (08:17→20:46)
[2019-09-15] MEDS: VITAMIN D 1,000 INTERNATIONAL UNITS TABLET PO SCH (08:17)
[2019-09-15] MEDS: DILTIAZEM 60 MG PO SCH (08:17)
[2019-09-15] MEDS: MUPIROCIN 2% OINT 22 GM TUBE TOP SCH (08:18)
[2019-09-15 10:00] VITALS: BP 138/54
--- NOTE | 2019-09-15 10:15 | IPNPDOC ---
Text Note Date of Service The patient was seen on 09/15/19. NOTE SUBJECTIVE: Patient seen sitting up comfortably in bed. Had right frst and third toe amputationyesterday. minor bleeding overnight so the dressing was increased. No pain. Sugars better controlled today, no fever or chills. OBJECTIVE PHYSICAL EXAMINATION: VITAL SIGNS: See below GENERAL: Pleasant 63-year-old male sitting up in bed awake alert oriented speaking in complete sentences no acute distress HEENT: Atraumatic, normocephalic mucous membranes, large neck girth, no visible JVD CARDIOVASCULAR: S1 S2 regular no additional heart sounds appreciated. RESPIRATORY: Clear to auscultation bilaterally. ABDOMINAL: Bowel sounds present but distant. Abdomen distended with a peritoneal dialysis catheter is in place with peritoneal fluid. Denies tenderness with palpation EXTREMITIES: Bilateral pitting edema (improving). unable to assess pedal pulses bilaterally due to edema. right foot in surgical dressing. NEUROLOGICAL: no gross focal deficits appreciated. Decreased sensation in the lower extremities up to knees (chronic the last 5 years) PSYCHOLOGICAL: Appropriate LABORATORY DATA: See below. MICROBIOLOGY: Please see below. IMAGIN09/09/2019 Foot x-ray - There are no comparisons.There is diffuse demineralization.There are no focal lytic, blastic or destructive skeletal changes to suggest osteomyelitis. I suspect circumferential soft tissue edema. This should be confirmed clinically. There is heavily calcified vascular atheroma. No fracture or dislocation. Calcaneal spurs. Vascular ultrasound - No evidence of deep venous thrombosis of the right lower extremity femoral popliteal venous system. ASSESSMENT & PLAN: This is a 63-year-old male presenting Dry gangrene of the right toes, 1-4. PROBLEMS: 1. Dry and Wet gangrene of the right toes: 1st, 3rd and 4th.. S/p Angioplasty of the right PT AT and peroneal on 08/23/2019. Exam consistent with possible progressive vascular changes of the lower extremity. Venous ultrasounds of the lower extremity is negative for DVTs. , Arterial duplex study show occlusion of the posterior tibial artery. Arteriogram on 09/10/[address] Rizzo. Will continue with aspirin and Plavix tomorrow . c/w zosyn PD dose then transition to PO antibiotics. Dr. Chowdary consulted, toe amputation of the right helix and third toe this morning. PT consulted 2. Diabetes mellitus, complicated by retinopathy and neuropathy. resume Consistent carbohydrate diet after procedure. Continue with long-acting coverage 65 units daily and nightime insulin to 50 units . Insulin sliding scale on board. 3. Hyperlipidemia.c/w Zocor 4. Hypertension. c/w losartan and should bring home diltiazem 60 mg extended release secondary continued while admitted. 5. End-stage renal disease on peritoneal dialysis. Nephrology consulted. c/w home vitamin D, and Calcitrol. 6. Glaucoma. c/w eyedrops as prescribed outpatient DVT PROPHYLAXIS: start Heparin BID VS,Fishbone, I+O VS, Fishbone, I+O Laboratory Tests 09/15/19 05:44 Vital Signs Date Time Temp Pulse Resp B/P (MAP) Pulse Ox O2 Delivery O2 Flow Rate FiO2 09/15/19 08:16 146/55 09/15/19 06:00 97.9 61 18 99 Room Air 09/14/19 09:17 10 I&O- Last 24 Hours up to 6 AM 09/15/19 06:00 Intake Total 09844 ml Output Total 27514 ml Balance -660 ml LEENA ORNELAS MD Sep 15, 2019 10:15
[2019-09-15 14:00] VITALS: BP 139/52
--- NOTE | 2019-09-15 19:04 | IPN ---
DATE: 09/15/2019 Mr. Lawson is seen this morning on his bedside. His and friends are present in the room. The patient is feeling better, but his reports that he has poor appetite and not eating much. He underwent right big toe amputation a couple of days ago. The patient has no dyspnea, chest pain, vomiting or diarrhea. PHYSICAL EXAMINATION: Temperature 97.7 degrees Fahrenheit, heart rate 86 per minute and respiratory rate 18 per minute. Blood pressure 138/54 mmHg and oxygen saturation 97% on room air. Head is atraumatic. Neck is supple and without jugular venous distention (JVD) or thyroid enlargement. Heart sounds are regular and lungs clear to auscultation. Abdomen soft and nontender and bowel sounds are normal. Peritoneal dialysis catheter is intact. Extremities have no cyanosis or clubbing. Right foot is in dressing and lower extremity edema has improved significantly. Neurologically, he has no focal deficit. Today's labs show WBC count 16.5, hemoglobin 9.0 and hematocrit 29.6. Platelets 289. Sodium 138, potassium 4.1, chloride 95, CO2 31, BUN 64 and creatinine 12.0. Glucose 149 and calcium 9.1. PROBLEMS: 1. End-stage renal disease. Patient remains on peritoneal dialysis with five exchanges per day. We will continue with the same at this point. 2. Anemia. At present his anemia is stable and we will continue to watch closely. He is receiving Aranesp 200 mcg once a week, which will be continued. 3. Hypertension. Blood pressure seems reasonably well-controlled on current antihypertensive medications and no changes are being made today. 4. Right big toe infection. Patient already had amputation of his big toe and remains on Zosyn.
[2019-09-15] MEDS: SIMVASTATIN 40 MG TAB PO SCH (20:47)
[2019-09-15] MEDS: LUMIGAN (PATIENT'S OWN MED) OU SCH (20:48)
[2019-09-15 22:00] VITALS: BP 125/57
[2019-09-16] MEDS: PIPERACILLIN/TAZOBACTAM SOD 4.5 GM in D5W MINI-BAG PLUS 50 ML IV SCH (03:15)
[2019-09-16 06:00] VITALS: BP 142/79
[2019-09-16 06:13] LABS: HEMATOCRIT 30.8 % (42.0-52.0); HEMOGLOBIN 9.2 g/dl (13.5-17.5); MEAN CORPUSCULAR HEMOGLOBIN 31.4 pg (27.0-33.0); MEAN CORPUSCULAR HGB CONC 29.9 g/dl (32.0-36.5); MEAN CORPUSCULAR VOLUME 105.1 fl (80.0-96.0); PLATELET COUNT, AUTOMATED 268 10^3/uL (150-450); RED BLOOD COUNT 2.93 10^6/uL (4.30-6.10); WHITE BLOOD COUNT 16.1 10^3/uL (4.0-10.0)
[2019-09-16 06:46] LABS: CREATININE FOR GFR 12.4 MG/DL (0.70-1.30); GLOMERULAR FILTRATION RATE 4.4 (>49); MAGNESIUM LEVEL 2.3 MG/DL (1.8-2.4)
[2019-09-16] MEDS ORDERED: CEPH250T PO (07:24)
[2019-09-16] MEDS: HumaLOG INSULIN (NovoLOG) PER UNIT SC SCH ×2 (07:51→11:51)
[2019-09-16] MEDS: SUCROFERRIC OXYHYDROXIDE 500MG CHEW TAB (VELPHORO) PO SCH ×2 (07:51→11:50)
[2019-09-16 08:00] VITALS: BP 166/80
[2019-09-16] MEDS ORDERED: KEFL500C17 PO (09:07)
[2019-09-16] MEDS: DILTIAZEM 60 MG PO SCH (09:20)
[2019-09-16] MEDS: MUPIROCIN 2% OINT 22 GM TUBE TOP SCH (09:21)
[2019-09-16] MEDS: BRINZOLAMIDE 1 % OPHTH SUSP (AZOPT) 10ML OS SCH (09:21)
[2019-09-16] MEDS: prednisoLONE ACET 1% OPHTH SUSP 5ML OS SCH (09:21)
[2019-09-16] MEDS: ATROPINE SULFATE 1% OP SOLN 2 ML BTL OS SCH (09:21)
[2019-09-16] MEDS: LACTOBACILLUS ACIDOPHILUS CAP (BACID) PO SCH (09:22)
[2019-09-16] MEDS: VITAMIN D 1,000 INTERNATIONAL UNITS TABLET PO SCH (09:22)
[2019-09-16] MEDS: LEVEMIR (INSULIN DETEMIR) 1 UNITS/0.01ML SC SCH (09:22)
[2019-09-16] MEDS: ASPIRIN 81 MG ENTERIC TAB PO SCH (09:22)
[2019-09-16] MEDS: CALCITRIOL 0.25 MCG CAP (S0169) PO SCH (09:22)
[2019-09-16] MEDS: HEPARIN SOD (PORCINE) 5000 UNITS/ML VIAL (J1644 PER 1000UNITS) SQ SCH (09:22)
[2019-09-16] MEDS: CLOPIDOGREL 75 MG TAB PO SCH (09:22)
[2019-09-16 09:23] VITALS: BP 166/80
[2019-09-16] MEDS: COMBIGAN (PATIENT'S OWN MED) OU SCH (09:23)
[2019-09-16] MEDS: LOSARTAN 25 MG TAB PO SCH (09:23)
--- NOTE | 2019-09-16 11:08 | RO ---
DATE OF PROCEDURE: 09/14/2019 PREPROCEDURE DIAGNOSIS: Right hallux and third toe gangrene. POSTPROCEDURE DIAGNOSIS: Right hallux and third toe gangrene. PROCEDURE: Right third toe and hallux amputation. SURGEON: Karan Chowdary DPM MEDICATION TECH: ANESTHESIA: Monitored anesthesia care, preoperative injection of 20 mL of 1:1 mixture of 1% Lidocaine and 0.5% Marcaine plain. ESTIMATED BLOOD LOSS: Minimal. MATERIALS: 3-0 nylon. COMPLICATIONS: None. CONDITION: Stable. SPECIMENS: Right hallux and third toe. INDICATION: Jai Lawson is a pleasant 63-year-old male who was admitted to the hospital with gangrene of his right foot. He had angioplasty by Dr. Andrew earlier this week with some opening of vessels. The third toe and hallux remained fully gangrenous with some other dysvascular changes to the forefoot. Decision was made to bring him to the operating room for hallux and third toe amputation. DESCRIPTION OF PROCEDURE: Patient, side and site were identified and marked in the preoperative holding area. Consent was reviewed. All risks, complications and alternatives to the procedure were explained to the patient in detail and all questions were answered. The patient was brought to the operating room and placed supine on the operating table. Monitored anesthesia care was delivered by the anesthesia team. Preoperative injection of 20 mL of 1:1 mixture of 1% Lidocaine plain and 0.5% Marcaine plain were injected into the right foot. The right foot was prepped and draped in the normal sterile fashion. No tourniquet was used during the procedure. Elliptical incision was made around the hallux and carried through with a #15 blade. The hallux was disarticulated at the metatarsophalangeal joint. Gangrenous changes to the skin were removal off the first metatarsal head was required for wound closure. This was removed using sagittal saw. Following this, the site was irrigated with normal saline. The incision was repaired with 3-0 nylon. The third toe was removed using a raquette shaped incision with a #15 blade. This was disarticulated at the third metatarsophalangeal joint. This toe was sent for pathology, as well as the hallux. The incision was irrigated with normal saline and repaired with 3-0 nylon. It should be noted, there was minimal blood flow during this procedure. The patient was brought to postanesthesia care unit (PACU), vital signs stable, neurovascular status intact. He will be readmitted to the floor for continued antibiotic and monitoring. He is at high risk for need for further amputation as there was not significant bleeding during this procedure. We will monitor the toes and plan for further surgery if required. ALEXEI
--- NOTE | 2019-09-16 11:39 | IPN ---
DATE OF SERVICE: 09/16/2019 Patient seen and examined. He denies any overnight complaints. Vitals are reviewed. He has remained afebrile. Labs are reviewed. His white blood cell count is 16.1. Lower extremity examination: The hallux amputation site is well coapted without dysvascular changes. There is some further dysvascular changes noted of the 4th toe. There remains some capillary refill of the lateral aspect of this toe. ASSESSMENT: This patient with peripheral vascular disease (PVD), diabetes, gangrene, status post right hallux and 3rd toe amputation. PLAN: The patient is okay for discharge on oral antibiotics. Will monitor 3rd and 4th toes. He may also require amputation of the 4th toe depending on how the gangrene progresses. He should have followup with me in 1 week.
[2019-09-16 12:00] VITALS: BP 113/62
--- NOTE | 2019-09-16 12:04 | DS.PDOC ---
Discharge Summary General Date of Admission Sep 09, 2019 at 14:03 Date of Discharge 09/16/2018 Discharge Summary DISCHARGE DIAGNOSIS: Dry and Wet gangrene of the right toes: 1st, 3rd and 4th. SECONDARY DIAGNOSIS: 1. Diabetes mellitus 2. Hyperlipidemia 3. Hypertension 4. End-stage renal disease on peritoneal dialysis 5. Glaucoma PROCEDURES PERFORMED DURING STAY: 09/10/2019 - Arteriogram by Dr. Rizzo. 09/14/2018 - Toe amputation of the right helix and third toe by Dr. Chowdary CONSULTANTS: Dr. Chowdary, Podiatry Dr. Rizzo, Vascular Surgeon Dr. Quinteros, Nephrology HOSPITAL COURSE: This is a 63-year-old male who was admitted to [facility] for right dry in wet gangrenous toes. He is evaluated by multiple consultants while he is admitted. Initially he had an arteriogram performed by Dr. Saul Feldman and on September 10 to help increase vascular flow for his peripheral artery disease in the right lower leg. Then he was evaluated by Dr. Chowdary, who performed a toe amputation of the right helix and third toe on September 14. Lastly was evaluated by nephrology for his peritoneal dialysis to make sure he got his exchanges daily. He was started on IV antibiotics while admitted. On the day of discharge he completed relatively 1 week of antibiotics and was recommended that he needs a total of 2 weeks of antibiotic coverage. He was discharged on Keflex 500 mg bid for 8 days and was to follow-up with Dr. Chowdary in one week. He was agreeable to all the plan stated to him. On the day of di scharge was stable to go home. DISCHARGE MEDICATIONS: Please see below. ALLERGIES: Please see below. SUBJECTIVE: Patient seen and examined this morning. He is waiting to be seen by Dr. Chowdary, so he can go home. He has no complaints, just would like to be back home. He continues to deny chest pain, shortness, breath, nausea, vomiting, fevers, chills] OBJECTIVE: PHYSICAL EXAMINATION: VITAL SIGNS: Please see below. GENERAL: Pleasant 63-year-old male laying up in bed awake alert oriented speaki ng in complete sentences no acute distress HEENT: Atraumatic, normocephalic mucous membranes, large neck girth, no visible JVD CARDIOVASCULAR: S1 S2 regular no additional heart sounds appreciated. RESPIRATORY: Clear to auscultation bilaterally. ABDOMINAL: Bowel sounds present but distant. Abdomen distended with a peritoneal dialysis catheter is in place ith peritoneal fluid. Denies tenderness with palpation EXTREMITIES: Bilateral pitting edema resolved. Right leg covered with dressing. Minimal dry blood noticed on the medial aspect. No fresh blood noted. No foul smell or tenderness noted. Left lower extremity benign exam NEUROLOGICAL: no gross focal deficits appreciated. Decreased sensation in the lower extremities up to knees (chronic the last 5 years) PSYCHOLOGICAL: Appropriate LABORATORY DATA, MICROBIOLOGY: Please see below. IMAGING STUDIES: 09/09/2019 Foot x-ray - There are no comparisons.There is diffuse demineralization.There are no focal lytic, blastic or destructive skeletal changes to suggest osteomyelitis. I suspect circumferential soft tissue edema. This should be confirmed clinically. There is heavily calcified vascular atheroma. No fracture or dislocation. Calcaneal spurs. Vascular ultrasound - No evidence of deep venous thrombosis of the right lower extremity femoral popliteal venous system. DISPOSITION: Home DISCHARGE CONDITION: Improved and Stable. PROGNOSIS: Fair FOLLOW UP: 1. Follow-up with PCP in 7-10 days 2. Follow-up with Dr. Karen De Leon in 1 week 3. Follow-up with nephrology as scheduled 4. Complete antibiotics as prescribed. 5. If symptoms return or worsen please call your PCP or return to the ER. ACTIVITY: As prior to admission. DIET: As prior to admission TIME SPENT ON DISCHARGE: 50 minutes Vital Signs/I&Os Vital Signs Date Time Temp Pulse Resp B/P (MAP) Pulse Ox O2 Delivery O2 Flow Rate FiO2 09/16/19 09:23 166/80 09/16/19 08:00 98.3 87 16 96 Room Air 09/14/19 09:17 10 I&O- Last 24 Hours up to 6 AM 09/16/19 06:00 Intake Total 8660 ml Output Total 9550 ml Balance -890 ml Laboratory Data Labs 24H Laboratory Tests 2 09/15/19 16:17: Bedside Glucose (Misc Panel) 266H 09/15/19 20:10: Bedside Glucose (Misc Panel) 252H 09/16/19 06:00: Nucleated Red Blood Cells % (auto) 0.0, Anion Gap 12, Glomerular Filtration Rate 4.4L, Calcium Level 9.0, Magnesium Level 2.3 09/16/19 11:33: Bedside Glucose (Misc Panel) 247H CBC/BMP Laboratory Tests 09/16/19 06:00 FSBS Laboratory Tests Test 09/15/19 16:17 09/15/19 20:10 09/16/19 11:33 Range/Units Bedside Glucose (Misc Panel) 266 252 247 80-115 MG/DL Microbiology Microbiology 09/09/19 Blood Culture - Final, Complete NO GROWTH AFTER 5 DAYS 09/09/19 Blood Culture - Final, Complete NO GROWTH AFTER 5 DAYS Discharge Medications Scheduled Aspirin (Aspir 81) 81 Mg Tablet.dr, 81 MG PO DAILY, (Reported) Atropine Sulfate (Atropine Sulfate) 1% 2ML Drops, 1 DROP OS DAILY, (Reported) Bimatoprost (Lumigan) 50 Drop/2.5 Ml Karla, 1 DROP OU QHS, (Reported) Brimonidine Tartrate/Timolol (Combigan 0.2%-0.5% Eye Drops) 5 Ml Drops, 1 DROP OU BID, (Reported) Brinzolamide (Azopt) 1% 10ML Drops.susp, 1 DROP OS BID, (Reported) Calcitriol (Rocaltrol) 0.5 Mcg Capsule, 0.5 MCG PO DAILY, (Reported) Cephalexin (Keflex) 500 Mg Capsule, 500 MG PO BID Cholecalciferol (Vitamin D3) (Vitamin D3) 1,000 Unit Capsule, 1,000 UNIT PO DAILY, (Reported) Clopidogrel Bisulfate (Clopidogrel) 75 Mg Tablet, 75 MG PO DAILY, (Reported) Diltiazem HCl (Diltiazem 12Hr ER) 60 Mg Cap.er.12h, 60 MG PO DAILY for high blood pressure, (Reported) HOLD FOR SP: <120 Insulin Glargine (Lantus) 1 Units/0.01 Ml Susp, 45 UNITS SC QHS, (Reported) Insulin Glargine (Lantus) 1 Units/0.01 Ml Susp, 65 UNITS SC DAILY, (Reported) Insulin Human Lispro (Humalog) 1 Units/0.01 Ml Inj, 1 DOSE SC AC, (Reported) PER SLIDING SCALE Losartan Potassium (Losartan Potassium) 25 Mg Tablet, 25 MG PO QHS, (Reported) Prednisolone Acetate (Prednisolone Acetate 1% Opth Susp) 5 Ml Drops.susp, 1 DROP OS BID, (Reported) Simvastatin (Simvastatin) 40 Mg Tab, 40 MG PO QHS, (Reported) Sucroferric Oxyhydroxide (Velphoro) 500 Mg Tab.chew, 500 MG PO WM, (Reported) Vit B Comp No.3/Folic/C/Biotin (Jaz-Basilio Rx Tablet) 1 Each Tablet, 1 TAB PO DAILY, (Reported) Allergies Coded Allergies: acetazolamide (Verified Adverse Reaction, Severe, CONVULSIONS, 05/13/19) KELLY EPPS DO Sep 16, 2019 12:04
--- NOTE | 2019-09-16 12:36 | IPN ---
DATE OF VISIT: 09/16/2019 Mr. Lawson is seen this morning on his bedside. He is feeling about the same and peritoneal dialysis has been functioning. The patient wants to go home and hospitalist service has asked if he is ready for discharge. He is still waiting for triage licensed practical nurse to come and see him an open his dressing since his surgery. PHYSICAL EXAMINATION: Temperature 98.3 degrees Fahrenheit, heart rate 86 per minute and respiratory rate 16 per minute. Blood pressure 166/80 mmHg and oxygen saturation 96% on room air. Head is atraumatic. Neck is supple and without jugular venous distention (JVD) or thyroid enlargement. Heart sounds are regular and lungs clear to auscultation. Abdomen soft and nontender and bowel sounds are normal. Peritoneal dialysis catheter is intact. Extremities have no cyanosis or clubbing. Neurologically he is at his baseline mentation. His right foot is wrapped in dressing and peripheral edema has improved. Today's labs show a WBC count 16.1, hemoglobin 9.2 and hematocrit 30.8. Platelets 268. Sodium 137, potassium 4.0, CO2 29, BUN 65 and creatinine 12.4. Glucose 233 and calcium 9.0. PROBLEMS: 1. End-stage renal disease. The patient has been on peritoneal dialysis and I am going to increase the number of exchanges to six exchanges per day. If he gets discharged then he will return to his home prescription of cycler at night and perform one daily exchange with 2.5% solution. 2. Generalized weakness and deconditioning. Probably related to his hospitalization and foot infection with surgery. His BUN and creatinine remain elevated and I have some concern about possible under dialysis. I have discussed with peritoneal dialysis clinic and noticed that his adequacy has been checked recently in July and was above the required level. I am going to increase his exchanges any way to ensure adequate dialysis. 3. Anemia. His anemia is stable and likely to improve. We will continue with Aranesp once a week for now and he will go back to outpatient dialysis clinic in the next couple of weeks for further followup. 4. Right foot infected wound. The patient already had surgery and amputation of his right big toe. He is being switched to Keflex by hospitalist service and I have advised a dose of 500 mg twice a day. 5. Disposition. From renal standpoint, the patient is ready for discharge and can be discharged to home today and followup in outpatient dialysis clinic.
== END 2019-09-16 13:25 | disposition home or self-care (01) | DRG 252 ==
LOC: M ED 10:25 → M ED INP 14:03 → ENRESERV 14:22 → M MSPAV 15:19
PROVIDERS: ADMIT Internal Medicine; ATTEND Internal Medicine Nephrology
PROC: 047R3ZZ Dilation of Right Posterior Tibial Artery, Percutaneous Approach (ICD-10-PCS; 2019-09-10)
PROC: 047P3ZZ Dilation of Right Anterior Tibial Artery, Percutaneous Approach (ICD-10-PCS; 2019-09-10)
PROC: 047V3ZZ Dilation of Right Foot Artery, Percutaneous Approach (ICD-10-PCS; 2019-09-10)
PROC: B41F1ZZ Fluoroscopy of Right Lower Extremity Arteries using Low Osmolar Contrast (ICD-10-PCS; 2019-09-10)
PROC: 047M3ZZ Dilation of Right Popliteal Artery, Percutaneous Approach (ICD-10-PCS; principal; 2019-09-10 16:30)
PROC: 0Y6P0Z0 Detachment at Right 1st Toe, Complete, Open Approach (ICD-10-PCS; 2019-09-14)
PROC: 0Y6T0Z0 Detachment at Right 3rd Toe, Complete, Open Approach (ICD-10-PCS; 2019-09-14)
DX: E11.52 Type 2 diabetes mellitus with diabetic peripheral angiopathy with gangrene (principal); N18.6 End stage renal disease; I50.32 Chronic diastolic (congestive) heart failure; N25.81 Secondary hyperparathyroidism of renal origin; I13.2 Hypertensive heart and chronic kidney disease with heart failure and with stage 5 chronic kidney disease, or end stage renal disease; I70.261 Atherosclerosis of native arteries of extremities with gangrene, right leg; E11.40 Type 2 diabetes mellitus with diabetic neuropathy, unspecified; E11.319 Type 2 diabetes mellitus with unspecified diabetic retinopathy without macular edema; E78.5 Hyperlipidemia, unspecified; H40.9 Unspecified glaucoma; Z79.4 Long term (current) use of insulin; Z79.899 Other long term (current) drug therapy; Z79.82 Long term (current) use of aspirin; Z88.8 Allergy status to other drugs, medicaments and biological substances; E66.9 Obesity, unspecified; M50.20 Other cervical disc displacement, unspecified cervical region; D63.1 Anemia in chronic kidney disease; D50.9 Iron deficiency anemia, unspecified; E11.21 Type 2 diabetes mellitus with diabetic nephropathy

== ENCOUNTER → 2019-09-24 | Outpatient (POV) | payer MEDICARE ==
[~2019-09-24] VITALS: Ht 177.8 cm; Wt 95.5 kg
[~2019-09-24] MED LIST changes: +ASPI81TA85 PO; +CEPH250T PO; +CLOP75TA2 PO; +DILT60CASR PO; +KEFL500C17 PO; +LOSA25TA14 PO; +RENATAB6 PO; +VITA100054 PO
[2019-09-24 13:10] VITALS: BP 141/64
--- NOTE | 2019-09-26 12:38 | IRPN ---
[facility] IR Progress Note IR Progress Note DATE: Sep 24, 2019 63-year-old male with diabetes and renal renal failure presented with nonhealing right big toe wound. He had 3 vessel below-knee angioplasty one month ago. He then presented to the hospital with discoloration of the toes at which time he had repeat angiogram performed by Dr. Andrew and further angioplasty of below-knee runoff vessels. Patient has since had amputation of his right big toe and third toe. The fourth toe appears black. Further surgery is planned. On examination status: Right lower extremity: post right hallux and third toe amputation. Fourth toe appears black. Dorsalis pedis + posterior tibialis - popliteal + sensation - motor 4 out of 5 Left lower extremity: Hairless. Warm to touch. Popliteal 1+ , DP 1+, PT - . No ulcers. No skin discoloration. Impression: 63-year-old male with diabetes and renal failure and advanced right lower extremity critical limb ischemia status post 2 toe amputations. We know he has occlusive disease in the distal posterior tibial artery. He's previously had anterior tibial, peroneal and posterior tibial artery angioplasty. We can try further recanalization of the distal posterior tibial artery in order to increase flow to the foot. However, this may not stay patent post recanalization. Patient is on aspirin, Plavix, good diabetes control and cholesterol control. He does not smoke. Cc Dr. Chowdary Allergies Coded Allergies: acetazolamide (Verified Adverse Reaction, Severe, CONVULSIONS, 05/13/19) VS,Fishbone, I+O VS, Fishbone, I+O Vital Signs Date Time Temp Pulse Resp B/P (MAP) Pulse Ox O2 Delivery O2 Flow Rate FiO2 09/24/19 13:10 97.3 85 18 141/64 (89) 97 Room Air NEY CONLEY MD Sep 26, 2019 12:38
== END ==
LOC: M IRPOV 12:39
PROVIDERS: ATTEND Radiology Diagnostic Radiology
DX: E11.29 Type 2 diabetes mellitus with other diabetic kidney complication (principal); L97.519 Non-pressure chronic ulcer of other part of right foot with unspecified severity; E11.51 Type 2 diabetes mellitus with diabetic peripheral angiopathy without gangrene; N19 Unspecified kidney failure; Z79.82 Long term (current) use of aspirin; Z79.01 Long term (current) use of anticoagulants

== ENCOUNTER → 2019-09-26 | Outpatient (CLI) | payer MEDICARE ==
[~2019-09-26] MED LIST changes: +HEPARIN 1,000 UNITS/ML 10ML VIAL (FOR RADIOLOGY& DIALYSIS ONLY)(J1644-10) As Ordered ONE; +HEPARIN SOD (PORCINE) 5000 UNITS/ML VIAL (J1644 PER 1000UNITS) As Ordered ONE; +ISOVUE-300 61% 50ML VIAL (Q9967) As Ordered ONE; +LIDOCAINE 1% MDV 20ML VIAL As Ordered ONE; +MIDAZOLAM INJ 2 MG/2 ML VIAL (J2250) As Ordered ONE; +NITROGLYCERIN IN D5W 25MG/250ML (100MCG/ML) As Ordered ONE; +diphenhydrAMINE INJ 50MG/ML VIAL (J1200) As Ordered ONE; +fentaNYL 100 MCG/2 ML INJECTION (J3010) As Ordered ONE
--- NOTE | 2019-09-26 07:21 | IRHP ---
[facility] IR Pre-Procedure H & P General Date of Service: Sep 26, 2019 Procedure: Same Day Surgery Interval History and Physical I have seen the patient and reviewed last H & P performed within 30 days. There is no significant interval change. History of Present Illness Chief Complaint The patient is a 63-year-old male admitted with a reason for visit of Critical Limb Ischemia. PRE-PROCEDURE DIAGNOSIS: critical limb ischemia HEART: normal rate. LUNGS: normal breathing at rest. ASA Classification ASA Classification: III-Severe systemic dis. Mallampati Score: II NPO: Yes Problems with prior sedation: No Obstructive Sleep Apnea: Yes Plan moderate sedation Allergies Coded Allergies: acetazolamide (Verified Adverse Reaction, Severe, CONVULSIONS, 05/13/19) Home Medications Scheduled Aspirin (Aspir 81), 81 MG PO DAILY, (Reported) Atropine Sulfate (Atropine Sulfate), 1 DROP OS DAILY, (Reported) Bimatoprost (Lumigan), 1 DROP OU QHS, (Reported) Brimonidine Tartrate/Timolol (Combigan 0.2%-0.5% Eye Drops), 1 DROP OU BID, (Reported) Brinzolamide (Azopt), 1 DROP OS BID, (Reported) Calcitriol (Rocaltrol), 0.5 MCG PO DAILY, (Reported) Cephalexin (Keflex), 500 MG PO BID Cholecalciferol (Vitamin D3) (Vitamin D3), 1,000 UNIT PO DAILY, (Reported) Clopidogrel Bisulfate (Clopidogrel), 75 MG PO DAILY, (Reported) Diltiazem HCl (Diltiazem 12Hr ER), 60 MG PO DAILY, (Reported) Insulin Glargine (Lantus), 45 UNITS SC QHS, (Reported) Insulin Glargine (Lantus), 65 UNITS SC DAILY, (Reported) Insulin Human Lispro (Humalog), 1 DOSE SC AC, (Reported) Losartan Potassium (Losartan Potassium), 25 MG PO QHS, (Reported) Prednisolone Acetate (Prednisolone Acetate 1% Opth Susp), 1 DROP OS BID, (Reported) Simvastatin (Simvastatin), 40 MG PO QHS, (Reported) Sucroferric Oxyhydroxide (Velphoro), 500 MG PO WM, (Reported) Vit B Comp No.3/Folic/C/Biotin (Jaz-Basilio Rx Tablet), 1 TAB PO DAILY, (Reported) NEY CONLEY MD Sep 26, 2019 07:21
--- NOTE | 2019-09-26 12:11 | POST-OPPD ---
Postoperative Procedure Note Date Of Procedure: Sep 26, 2019 Time Of Procedure: 12:10 PREOPERATIVE DIAGNOSIS: CLI POSTOPERATIVE DIAGNOSIS: same FINDINGS: distal posterior tibial occlusion and occluded plantar arch. patent anterior tibial artery feeding dorsal arch. PROCEDURE: arteriogram, angioplasty and thrombectomy right posterior tibial artery SURGEON: shanna ANESTHESIA: mod sed ESTIMATED BLOOD LOSS: < 5 ml COMPLICATIONS: none POSTOPERATIVE CONDITION: stable NEY CONLEY MD Sep 26, 2019 12:11
[2019-09-26 17:28] VITALS: BP 177/82
--- NOTE | 2019-09-27 09:19 | REP ---
IR Right leg angiogram. IR Antegrade ultrasound guided right femoral artery access. IR Below-knee runoff angiogram. IR Sub selective posterior tibial artery micro catheterization and angiography. IR Sub selective posterior tibial artery angioplasty. IR Posterior tibial artery thrombectomy. IR moderate sedation. Clinical Information: Right lower extremity critical limb ischemia with amputation of hallux and 3rd toe. Gangrenous 4th toe. Distal posterior tibial artery occlusion. Poor vascularity in the foot. Physician: Dr Carbone.Procedure: The patient was advised of the benefits, risks, and alternatives of the procedure and informed consent was obtained.A time out was performed with verification of the patient's name, MRN, site of procedure, and type of procedure to be performed. The patient was positioned in the supine position on the angiographic table. The site was prepped and draped in the usual sterile fashion.Moderate sedation was performed by the physician including the presence of an independent trained observer who assisted in monitoring the patient's level of consciousness and physiological status. Following the administration of Fentanyl and Versed, the physician spent 120 minutes of continuous [id number] time with the patient. A electronic specialist radiograph reveals calcified right lower extremity vasculature. The right femoral artery was accessed antegrade under ultrasound guidance with a micropuncture kit. A [employer] wire was advanced into the superficial femoral artery. The micropuncture sheath was exchanged over the wire for a 6-Greek vascular sheath. Through the sheath in the popliteal artery, a below-knee arteriogram was performed. This demonstrates patent popliteal artery, patent anterior tibial, tibioperoneal trunk, peroneal and proximal posterior tibial artery. Further magnification runoff arteriogram views were performed to the right foot. This demonstrates patent anterior tibial artery supplying the patent dorsalis pedisy. However there is incomplete pedal loop. This is due to distal posterior tibial artery occlusion. There is slow flow in the distal posterior tibial artery which is heavily calcified and trickle flow to medial plantar artery. Occluded pedal loop. A glide wire and glide catheter were advanced through the sheath and under fluoroscopy guidance used to catheterize the proximal posterior tibial artery. Selective posterior tibial arteriogram was performed and this demonstrates flow in the mid posterior tibial artery. The distal posterior tibial artery is occluded with heavily calcified torres and delayed trickle flow in a plantar branch. A micro catheter and micro wire were used inserted through the diagnostic catheter and under fluoroscopy guidance used to sub selectively catheterize the distal posterior tibial artery and second order plantar branch. An arteriogram was performed and this demonstrates microvascular disease in the calcaneal branches. No supply into pedal loop. Diagnostic catheter and micro catheter were removed over the wire. A 2 x 100 mm Lionel balloon was advanced over the wire under fluoroscopy guidance, and positioned in the distal posterior tibial artery. This could not be passed into the plantar branches due to significant atherosclerotic occlusion at the ankle. The balloon was used to angioplasty the distal posterior tibial artery to the ankle. Heparin was administered. The balloon was then deflated and removed over the wire. A follow-up arteriogram was performed and this demonstrates persistent poor flow in the distal posterior tibial artery. There was felt to be vessel spasm and possible debris. 100 mcg of nitroglycerin was administered into the distal posterior tibial artery and additional systemic heparin. The micro catheter and micro wire were advanced under fluoroscopy guidance to the distal posterior tibial artery. A follow-up arteriogram was performed. This demonstrates flow in the distal posterior tibial artery at the ankle and proximal plantar branch. A follow-up arteriogram was again performed from the popliteal artery. This demonstrates flow in the anterior tibial artery and dorsalis pedis and peroneal artery. Patent flow in the proximal and mid posterior tibial artery but poor flow in the distal posterior tibial artery. A 3 x 200 mm [place] balloon was advanced over the wire under fluoroscopy guidance and positioned in the posterior tibial artery. Angioplasty was performed. Additional heparin was administered. The balloon was deflated and removed over the wire. A follow-up arteriogram was performed and this demonstrates improved flow in the proximal and mid posterior tibial artery. There is still sluggish flow in the distal posterior tibial artery. This was felt to be second to spasm and possible debris. A mechanical thrombectomy catheter was advanced under fluoroscopy guidance into the posterior tibial artery and used to suction the distal posterior tibial artery. After mechanical thrombectomy, the catheter was removed and a catheter and wire were advanced under fluoroscopy guidance and used to catheterize the posterior tibial artery. A follow-up arteriogram was performed and this demonstrates good flow in the proximal and mid posterior tibial artery. Good flow in the anterior tibial artery and peroneal artery. Persistent sluggish flow in the distal posterior tibial artery felt to be due to spasm. No extravasation. The catheter and wire was advanced under fluoroscopy guidance and used to catheterize the distal posterior tibial artery. An arteriogram was performed. This demonstrates flow in the distal posterior tibial artery into the foot. There is spasm in the vessel. Catheter and wire were removed. The groin sheath was removed, pressure held and hemostasis achieved. A sterile dressing was applied to the site. Patient tolerated the procedure well and was transferred to PRU in stable condition. Complications: None. Estimated blood loss: Less than 5 ml. Impression: 1. Right leg below-knee runoff demonstrates occlusion of the distal posterior tibial artery, occluded plantar branches and incomplete pedal loop. Good flow from the anterior tibial artery into dorsalis pedis. Peroneal artery is patent to the ankle. 2. Subselective micro catheterization of the distal posterior tibial artery demonstrates microvascular disease in the plantar and calcaneal branches. No supply to or reflux into pedal loop. 3. Angioplasty of the right posterior tibial artery to the ankle. 4. Mechanical thrombectomy of right posterior tibial artery. 5. Patient to follow up in IR clinic in 2 weeks and follow up with podiatry next Monday. 6. Continue aspirin and Plavix. Thank you for this referral Cc Dr. Chowdary . Electronically Signed by Akua Carbone MD 09/27/2019 09:18 A
== END ==
LOC: M IRPRO 06:32
PROVIDERS: ATTEND Radiology Diagnostic Radiology
DX: I70.261 Atherosclerosis of native arteries of extremities with gangrene, right leg (principal); I99.8 Other disorder of circulatory system; Z79.01 Long term (current) use of anticoagulants
CPT/HCPCS: 37184; 37228; 75710; 99152; 99153; C1725; C1757; C1769; C1887; C1894; J1200; J1644; J2250; J3010; Q9967

== ENCOUNTER 2019-10-02 10:53 | Inpatient (IN) | payer MEDICARE ==
[~2019-10-02] VITALS: Ht 177.8 cm; Wt 95.1 kg
[~2019-10-02 10:53] MED LIST changes: +D5W/0.2% SODIUM CHLORIDE 1,000 ML IV ONE; -HEPARIN 1,000 UNITS/ML 10ML VIAL (FOR RADIOLOGY& DIALYSIS ONLY)(J1644-10) As Ordered ONE; -HEPARIN SOD (PORCINE) 5000 UNITS/ML VIAL (J1644 PER 1000UNITS) As Ordered ONE; -ISOVUE-300 61% 50ML VIAL (Q9967) As Ordered ONE; -LIDOCAINE 1% MDV 20ML VIAL As Ordered ONE; -MIDAZOLAM INJ 2 MG/2 ML VIAL (J2250) As Ordered ONE; -NITROGLYCERIN IN D5W 25MG/250ML (100MCG/ML) As Ordered ONE; +ceFAZolin SOD 2 GM in IV 1 EA IV ONE; -diphenhydrAMINE INJ 50MG/ML VIAL (J1200) As Ordered ONE; -fentaNYL 100 MCG/2 ML INJECTION (J3010) As Ordered ONE
[2019-10-02] MEDS ORDERED: ONDANSETRON 4MG/2ML VIAL (J2405) As Ordered ONE (11:13)
[2019-10-02] MEDS ORDERED: propofoL 200 MG/20 ML VIAL As Ordered ONE (11:13)
[2019-10-02] MEDS ORDERED: MIDAZOLAM INJ 2 MG/2 ML VIAL (J2250) As Ordered ONE (11:13)
[2019-10-02] MEDS ORDERED: LIDOCAINE 2% INJ 100 MG/5 ML SDV (FOR ANES.) As Ordered ONE (11:13)
[2019-10-02] MEDS ORDERED: fentaNYL 100 MCG/2 ML INJECTION (J3010) As Ordered ONE (11:13)
[2019-10-02] MEDS ORDERED: LIDOCAINE 1% MDV 20ML VIAL As Ordered ONE (13:06)
[2019-10-02] MEDS ORDERED: BUPIVACAINE HCL 0.5% 10 ML VIAL As Ordered ONE (13:07)
[2019-10-02] MEDS ORDERED: ROCURONIUM BROMIDE 50 MG/5 ML VIAL As Ordered ONE (13:28)
[2019-10-02] MEDS ORDERED: ePHEDrine SULFATE 25 MG/5 ML(5MG/ML) SYRINGE As Ordered ONE (13:56)
[2019-10-02] MEDS ORDERED: LR 1,000 ML IV SCH (15:15)
[2019-10-02] MEDS ORDERED: fentaNYL 100 MCG/2 ML INJECTION (J3010) IV PRN (15:15)
[2019-10-02] MEDS ORDERED: PERCOCET 5MG/325MG TAB PO PRN (15:15)
[2019-10-02] MEDS ORDERED: ONDANSETRON 4MG/2ML VIAL (J2405) IV PRN (15:15)
[2019-10-02] MEDS ORDERED: METOCLOPRAMIDE INJ 10MG/2ML VIAL (J2765) IV PRN (15:15)
[2019-10-02] MEDS: SUCROFERRIC OXYHYDROXIDE 500MG CHEW TAB (VELPHORO) PO SCH (18:00)
[2019-10-02] MEDS ORDERED: GLUCOSE 4 GM CHEW TABLET PO PRN (18:00)
[2019-10-02] MEDS ORDERED: GLUCAGON FOR INJ 1 MG VIAL (J1610) SC PRN (18:00)
[2019-10-02] MEDS ORDERED: DEXTROSE 50% 50 ML SYRINGE IV PRN (18:00)
--- NOTE | 2019-10-02 18:27 | HPEPDOC ---
[facility] Medical History & Physical Date of Admission Oct 02, 2019 Date of Service: Oct 02, 2019 Attending Physician: SHANNAN WADSWORTH MD History and Physical CHIEF COMPLAINT: s/p Transmetatarsal amputation HISTORY OF PRESENT ILLNESS: 63-year-old male with past medical history of end- stage renal disease on peritoneal dialysis, hypertension, diabetes mellitus is being admitted status post transmetatarsal amputation of the right foot. Patient has had dry gangrene in the left foot for the past few weeks, underwent amputation of 2 toes with poor wound healing, also underwent multiple angioplasties in the leg without much success with eventual plan for transmetatarsal amputation today. Patient is seen on the floor, resting comfortably in bed, without any complaints at this time. He reports the pain is well-controlled, tolerating diet. He denies any shortness of breath, nausea, vomiting, chest pain, abdominal pain or diarrhea. 10 point review of system is negative except for above PAST MEDICAL HISTORY: 1. End-stage renal disease. 2. Hypertension. 3. . Diabetes mellitus. PAST SURGICAL HISTORY: 1. Left upper extremity AV fistula. 2. Abdominal peritoneal dialysis catheter. 3. Transmetatarsal right foot amputation. SOCIAL HISTORY: Previous smoker. Denies alcohol. Denies drug use FAMILY HISTORY: Mother had brain cancer, father had lung cancer ALLERGIES: Please see below. HOME MEDICATIONS: Please see below. PHYSICAL EXAMINATION: VITAL SIGNS: Please see below. GENERAL: No distress HEENT: Normocephalic, atraumatic, moist mucous membranes NECK: Supple CARDIOVASCULAR EXAMINATION: S1, S2, no murmurs RESPIRATORY EXAMINATION: Clear to auscultation, no wheezing ABDOMINAL EXAMINATION: Soft, nontender, nondistended, positive bowel sounds, presently on dialysis in place, no erythema or drainage EXTREMITIES: Left upper extremity AV fistula, index finger of left hand with dry gangrene SKIN: Right foot wound in place with SELINA drain draining sanguinous fluid NEUROLOGICAL EXAMINATION: Alert and oriented 3, no focal deficits PSYCHIATRIC EXAMINATION: Calm and cooperative LABORATORY DATA: See below. MICROBIOLOGY: Please see below. ASSESSMENT: 63-year-old male with past medical history of as his renal disease, hypertension and diabetes mellitus is admitted status post transmetatarsal amputation of the right foot. . PLAN: 1. Transmetatarsal amputation of right foot. Secondary to dry gangrene and poor wound healing, wound dressing in place with SELINA draining sinus fluid, management as per podiatry. 2. End-stage renal disease. On peritoneal dialysis, nephrology consulted for dialysis during hospitalization. 3. Peripheral vascular disease. History of multiple angiographies/angioplasties, history of left upper extremity AV fistula, now with left index finger dry gangrene, vascular surgery consulted for possible intervention. Continue aspirin, Plavix and statin 4. Diabetes mellitus. Levemir 30 units twice a day along with Sliding scale insulin coverage with meals and at bedtime. DVT prophylaxis: Heparin subcutaneous GI prophylaxis: Not needed Vital Signs Vital Signs Date Time Temp Pulse Resp B/P (MAP) Pulse Ox O2 Delivery O2 Flow Rate FiO2 10/02/19 16:00 98.0 85 18 168/74 (105) 96 Room Air 10/02/19 15:15 2 Laboratory Data Labs 24H Laboratory Tests 2 10/02/19 12:34: Bedside Glucose (Misc Panel) 161H CBC/BMP Laboratory Tests 10/02/19 11:19 Home Medications Scheduled Aspirin (Aspir 81) 81 Mg Tablet.dr, 81 MG PO DAILY Atropine Sulfate (Atropine Sulfate) 1% 2ML Drops, 1 DROP OS DAILY Bimatoprost (Lumigan) 50 Drop/2.5 Ml Karla, 1 DROP OU QHS Brimonidine Tartrate/Timolol (Combigan 0.2%-0.5% Eye Drops) 5 Ml Drops, 1 DROP OU BID Brinzolamide (Azopt) 1% 10ML Drops.susp, 1 DROP OS BID Cephalexin (Keflex) 500 Mg Capsule, 500 MG PO BID Clopidogrel Bisulfate (Clopidogrel) 75 Mg Tablet, 75 MG PO DAILY Insulin Glargine (Lantus) 1 Units/0.01 Ml Susp, 45 UNITS SC QHS Insulin Glargine (Lantus) 1 Units/0.01 Ml Susp, 65 UNITS SC QAM Insulin Human Lispro (Humalog) 1 Units/0.01 Ml Inj, 1 DOSE SC AC PER SLIDING SCALE Prednisolone Acetate (Prednisolone Acetate 1% Opth Susp) 5 Ml Drops.susp, 1 DROP OS BID Simvastatin (Simvastatin) 40 Mg Tab, 40 MG PO QHS Sucroferric Oxyhydroxide (Velphoro) 500 Mg Tab.chew, 500 MG PO WM Vit B Comp No.3/Folic/C/Biotin (Jaz-Basilio Rx Tablet) 1 Each Tablet, 1 TAB PO DAILY Allergies Coded Allergies: acetazolamide (Verified Adverse Reaction, Severe, CONVULSIONS, 10/02/19) A-FIB/CHADSVASC A-FIB History Current/History of A-Fib/PAF?: No SHANNAN WADSWORTH MD Oct 02, 2019 18:27
[2019-10-02 19:00] VITALS: BP 162/76
[2019-10-02 20:00] VITALS: BP 162/82
[2019-10-02 21:00] VITALS: BP 131/81
[2019-10-02] MEDS: LEVEMIR (INSULIN DETEMIR) 1 UNITS/0.01ML SC SCH (21:00)
[2019-10-02] MEDS: HumaLOG INSULIN (NovoLOG) PER UNIT SC SCH (21:00)
[2019-10-02] MEDS ORDERED: LEVEMIR (INSULIN DETEMIR) 1 UNITS/0.01ML SC SCH (21:00)
[2019-10-02 22:00] VITALS: BP 148/84
[2019-10-02] MEDS: prednisoLONE ACET 1% OPHTH SUSP 5ML OS SCH (22:07)
[2019-10-02] MEDS: SIMVASTATIN 40 MG TAB PO SCH (22:07)
[2019-10-02] MEDS: BRINZOLAMIDE 1 % OPHTH SUSP (AZOPT) 10ML OS SCH (22:07)
[2019-10-03 02:00] VITALS: BP 143/79
[2019-10-03 06:00] VITALS: BP 189/81
[2019-10-03 06:59] LABS: HEMATOCRIT 27.1 % (42.0-52.0); HEMOGLOBIN 8.6 g/dl (13.5-17.5); MEAN CORPUSCULAR HEMOGLOBIN 32.1 pg (27.0-33.0); MEAN CORPUSCULAR HGB CONC 31.7 g/dl (32.0-36.5); MEAN CORPUSCULAR VOLUME 101.1 fl (80.0-96.0); PLATELET COUNT, AUTOMATED 412 10^3/uL (150-450); RED BLOOD COUNT 2.68 10^6/uL (4.30-6.10); WHITE BLOOD COUNT 20.4 10^3/uL (4.0-10.0)
[2019-10-03 07:29] LABS: ALBUMIN 2.2 GM/DL (3.2-5.2); BILIRUBIN,TOTAL 0.3 MG/DL (0.2-1.0); CALCIUM LEVEL 8.9 MG/DL (8.8-10.2); CREATININE FOR GFR 12.9 MG/DL (0.70-1.30); GLOMERULAR FILTRATION RATE 4.2 (>49); MAGNESIUM LEVEL 2.1 MG/DL (1.8-2.4); TOTAL PROTEIN 7.5 GM/DL (6.4-8.2)
[2019-10-03] MEDS: SUCROFERRIC OXYHYDROXIDE 500MG CHEW TAB (VELPHORO) PO SCH ×4 (08:00→18:15)
[2019-10-03] MEDS ORDERED: CLOPIDOGREL 75 MG TAB PO SCH (09:00)
[2019-10-03] MEDS: ASPIRIN 81 MG ENTERIC TAB PO SCH (09:18)
[2019-10-03] MEDS: prednisoLONE ACET 1% OPHTH SUSP 5ML OS SCH ×2 (09:19→22:43)
[2019-10-03] MEDS: HEPARIN SOD (PORCINE) 5000 UNITS/ML VIAL (J1644 PER 1000UNITS) SQ SCH ×2 (09:19→22:41)
[2019-10-03] MEDS: NORCO, ANEXSIA 5/325MG TABLET (HYDROcodone/ACETAMINOPHEN) PO PRN (09:19)
[2019-10-03] MEDS: BRINZOLAMIDE 1 % OPHTH SUSP (AZOPT) 10ML OS SCH ×2 (09:19→22:43)
[2019-10-03] MEDS: ATROPINE SULFATE 1% OP SOLN 2 ML BTL OS SCH (09:19)
[2019-10-03] MEDS: LEVEMIR (INSULIN DETEMIR) 1 UNITS/0.01ML SC SCH ×2 (09:20→22:43)
[2019-10-03] MEDS: HumaLOG INSULIN (NovoLOG) PER UNIT SC SCH ×4 (09:20→21:00)
--- NOTE | 2019-10-03 10:18 | RO ---
DATE OF PROCEDURE: 10/02/2019 PREPROCEDURE DIAGNOSIS: Right foot gangrene. POSTPROCEDURE DIAGNOSIS: Right foot gangrene. PROCEDURE: Right foot transmetatarsal amputation. SURGEON: Dr. Logan Chowdary DPM [employer] DRIVER: None. ANESTHESIA: General endotracheal anesthesia with preop injection of 20 mL of 1:1 mixture of 1% lidocaine plain and 0.5% Marcaine plain. ESTIMATED BLOOD LOSS: 40 mL. MATERIALS: #2-0 and #4-0 nylon. DRAINS: Henrik-Rodrigues (SELINA) 7 right foot. COMPLICATIONS: None. CONDITION: Stable. Jai Lawson is a pleasant but unfortunate 63-year-old male who presents with right foot gangrene. He has had worsening vascular changes over the last 2 months. He has had several vascular interventions which have been able to improve his blood flow. However, there remains significant disease. He has full gangrenous changes to the distal toes. He was able to have two of the three main foot vessels opened through angioplasty, however, the posterior tibial artery was unable to be fully realized on most recent angiogram. A lengthy discussion had been made preoperatively regarding procedure and treatment including transmetatarsal amputation versus below knee amputation. Did discuss the transmetatarsal amputation does have fair risk of not healing due to his poor blood flow and may ultimately require below knee amputation. Nonetheless, if it is able to heal, it would give him better ability to ambulate compared to prosthesis. Patient states he would like to proceed with transmetatarsal amputation noting that he is aware that it may not heal. The patient's side and site were identified and marked in the preoperative holding area. Consent was reviewed and obtained. All risks, complications and alternatives to the procedure were explained to the patient in detail and all questions were answered. DESCRIPTION OF PROCEDURE: The patient was brought to the operating room and placed on the operating room table in supine position. General laryngeal mask anesthesia (LMA) anesthesia was delivered by the anesthesia team. Preoperative injection of 20 mL of 1:1 mixture of 1% Lidocaine plain and 0.5% Marcaine plain were injected into the right ankle. The right foot was prepped and draped in the normal sterile fashion. A tourniquet was applied at the ankle but was not used at all during the procedure. A fish-mouth type incision was made just proximal to the area of gangrene on the toes trying to keep only good skin with capillary refill. Using the #10 blade, dissection was carried full thickness to bone Some mild bleeding was noted on the lateral foot. Using a sagittal saw, each metatarsal was transected and then freed using a #10 blade. They were sent for pathology. #3-0 Vicryl was used to tie off bleeding vessels and Bovie was used to obtain hemostasis. Nonviable tissue and tendons were reflected using a #10 blade. The SELINA was inserted with exiting the dorsal foot and the wound was closed using #2-0 nylon. Site was irrigated with saline. At the end of the procedure, there was capillary refill to the coapted margin albeit slow in some sites. Sterile dressing were applied. Patient was brought to the postanesthesia care unit (PACU), vitals signs stable. He will be admitted to the floor. Will monitor flap margins over the next few days. Vascular surgery will be consulted. Hopefully, patient progresses and is able to heal the procedure. If not, he will likely have below knee amputation performed this hospital stay. Will follow. ALEXEI
[2019-10-03] MEDS: LOSARTAN 25 MG TAB PO SCH ×2 (10:22→22:42)
[2019-10-03] MEDS ORDERED: HumuLIN R (REGULAR) INSULIN (NovoLIN R) **100U/ML** PER UNIT IV STA (11:40)
[2019-10-03] MEDS ORDERED: traMADol 50 MG TAB PO PRN (12:00)
[2019-10-03 14:00] VITALS: BP 140/65
--- NOTE | 2019-10-03 15:09 | CR.PDOC ---
General Date of Consultation: Oct 03, [address] Andrew HPI: 63 year old M with history of PAD, status post right TMA as per Dr. Chowdary 10/02/19.the patient is known to have past medical history of end-stage renal disease on peritoneal dialysis, the patient has a left upper extremity AV fistula now with left index finger dry gangrene. Vascular surgery is evaluated for further management and evaluation. PMHx: Hypertension/HHD/CHF IDDM Dyslipidemia Glaucoma ESRD, peritoneal dialysis. PSHX: PermCath placement PD cath placement AV fistula left upper extremity. SOCHX: Nonsmoker FAMHX: Father secondary to lung cancer. Mother secondary to diabetes, brain cancer ROS: As noted in HPI, otherwise 11pt ROS of systems reviewed and unremarkable. PE: GEN: 63 yo M, appears stated age. No acute distress. Alert and oriented x 3. Pleasant, interactive. HEENT: Normocephalic, atraumatic. Moist mucous membranes. CHEST: Regular rate and rhythm, +S1, +S2 LUNGS: Clear to auscultation bilaterally. ABD: Round, soft, non-tender, non-distended. +Bowel sounds throughout. EXT: Right foot with dressing intact. Left upper extremity with AV fistula. Dry gangrene is noted of the tip of the left index finger. NEURO: Alert and oriented x 3. Cranial nerves III-XII are intact. No focal deficits appreciated. A&P: 1. Left upper extremity AV fistula. Patient with wound at the tip of the left index finger. The patient is reviewed and examined by Dr. Andrew. Plan is for OR later tomorrow for possible banding of cephalic vein branches. This has been discussed and reviewed with the patient. The patient verbalizes understanding and agreement. Informed consent was placed on the chart. Plan is for a light breakfast prior to 7 AM 10/04/19, then the patient should be nothing by mouth. The patient can continue with aspirin 81 mg daily. Plavix 75 mg was given this morning, will hold Plavix in the morning, likely restart postoperatively. 2. Status post right lower extremity TMA. Continue with wound mgmt as per Podiatry. Vital Signs/I&O Vital Signs Date Time Temp Pulse Resp B/P (MAP) Pulse Ox O2 Delivery O2 Flow Rate FiO2 10/03/19 10:22 176/78 10/03/19 09:49 18 10/03/19 06:51 93 10/03/19 06:00 98.5 94 Room Air 10/02/19 15:15 2 I&O- Last 24 Hours up to 6 AM 10/03/19 06:00 Intake Total 3240 ml Output Total 1357 ml Balance 1883 ml Laboratory Data Labs 24H Laboratory Tests 2 10/02/19 20:15: Bedside Glucose (Misc Panel) 159H 10/03/19 06:48: Nucleated Red Blood Cells % (auto) 0.0, Anion Gap 10, Glomerular Filtration Rate 4.2L, Calcium Level 8.9, Magnesium Level 2.1, Total Bilirubin 0.3, Aspartate Amino Transf (AST/SGOT) 22, Alanine Aminotransferase (ALT/SGPT) 18, Alkaline Phosphatase 187H, Total Protein 7.5, Albumin 2.2L, Albumin/Globulin Ratio 0.42L 10/03/19 11:34: Bedside Glucose (Misc Panel) 484H 10/03/19 14:30: Bedside Glucose (Misc Panel) 320H CBC/BMP Laboratory Tests 10/03/19 06:48 Allergies Coded Allergies: acetazolamide (Verified Adverse Reaction, Severe, CONVULSIONS, 10/02/19) Home Medications Scheduled Aspirin (Aspir 81) 81 Mg Tablet.dr, 81 MG PO DAILY, (Reported) Atropine Sulfate (Atropine Sulfate) 1% 2ML Drops, 1 DROP OS DAILY, (Reported) Bimatoprost (Lumigan) 50 Drop/2.5 Ml Karla, 1 DROP OU QHS, (Reported) Brimonidine Tartrate/Timolol (Combigan 0.2%-0.5% Eye Drops) 5 Ml Drops, 1 DROP OU BID, (Reported) Brinzolamide (Azopt) 1% 10ML Drops.susp, 1 DROP OS BID, (Reported) Cephalexin (Keflex) 500 Mg Capsule, 500 MG PO BID for 8 Days, #16 Clopidogrel Bisulfate (Clopidogrel) 75 Mg Tablet, 75 MG PO DAILY, (Reported) Insulin Glargine (Lantus) 1 Units/0.01 Ml Susp, 45 UNITS SC QHS, (Reported) Insulin Glargine (Lantus) 1 Units/0.01 Ml Susp, 65 UNITS SC QAM, (Reported) Insulin Human Lispro (Humalog) 1 Units/0.01 Ml Inj, 1 DOSE SC AC, (Reported) PER SLIDING SCALE Prednisolone Acetate (Prednisolone Acetate 1% Opth Susp) 5 Ml Drops.susp, 1 DROP OS BID, (Reported) Simvastatin (Simvastatin) 40 Mg Tab, 40 MG PO QHS, (Reported) Sucroferric Oxyhydroxide (Velphoro) 500 Mg Tab.chew, 500 MG PO WM, (Reported) Vit B Comp No.3/Folic/C/Biotin (Jaz-Basilio Rx Tablet) 1 Each Tablet, 1 TAB PO DAILY, (Reported) Dulce Espinal Oct 03, 2019 15:09
--- NOTE | 2019-10-03 18:23 | IPN ---
DATE OF SERVICE: 10/03/2019 The patient is seen and examined. He denies overnight complaint. He states that his pain is controlled. Laboratories were reviewed. Maximum temperature (t-max) 99.3. Laboratories this morning: White blood cell count 20.4, hemoglobin 8.6. SELINA is intact and stable with recorded output of 10 mL this morning. Dressing was removed. Flap was inspected. The dorsal flap has brisk capillary refill. The plantar flap has sluggish capillary refill. It is warm to touch. ASSESSMENT: 63-year-old diabetic male with peripheral vascular disease, status post transmetatarsal amputation. We will continue to monitor flap for viability. The patient should remain non weightbearing and bedrest for the time being. Hopefully, vasculature maintains enough for healing. If not, he will ultimately require below knee amputation. Dr. Andrew has been consulted. He is going to surgery tomorrow of the left arm. We will continue to follow.
--- NOTE | 2019-10-03 18:35 | IPNPDOC ---
Date Seen The patient was seen on 10/03/19. Progress Note HISTORY OF PRESENT ILLNESS: 63-year-old male with past medical history of end- stage renal disease on peritoneal dialysis, hypertension, diabetes mellitus is being admitted status post transmetatarsal amputation of the right foot. Patient has had dry gangrene in the left foot for the past few weeks, underwent amputation of 2 toes with poor wound healing, also underwent multiple angioplasties in the leg without much success with eventual plan for transmetatarsal amputation today. Patient is seen on the floor, resting comfortably in bed, without any complaints at this time. He reports the pain is well-controlled, tolerating diet. He denies any shortness of breath, nausea, vomiting, chest pain, abdominal pain or diarrhea. 10/03/19 Patient seen in the morning, resting comfortably in bed, no acute events overnight, no complaints at this time. He denies any shortness of breath, chest pain, nausea, vomiting, abdominal pain or diarrhea. 10 point review of system is negative except for above PHYSICAL EXAMINATION: VITAL SIGNS: Please see below. GENERAL: No distress HEENT: Normocephalic, atraumatic, moist mucous membranes NECK: Supple CARDIOVASCULAR EXAMINATION: S1, S2, no murmurs RESPIRATORY EXAMINATION: Clear to auscultation, no wheezing ABDOMINAL EXAMINATION: Soft, nontender, nondistended, positive bowel sounds, peritoneal dialysis catheter in place, no erythema or drainage EXTREMITIES: Left upper extremity AV fistula, index finger of left hand with dry gangrene SKIN: Right foot dressing in place with SELINA draining serosanguineous fluid NEUROLOGICAL EXAMINATION: Alert and oriented 3, no focal deficits PSYCHIATRIC EXAMINATION: Calm and cooperative LABORATORY DATA: See below. MICROBIOLOGY: Please see below. ASSESSMENT: 63-year-old male with past medical history of as his renal disease, hypertension and diabetes mellitus is admitted status post transmetatarsal amputation of the right foot. PLAN: 1. Transmetatarsal amputation of right foot. Secondary to dry gangrene and poor wound healing, wound dressing in place with SELINA draining serosanguineous fluid, management as per podiatry. 2. End-stage renal disease. On peritoneal dialysis, nephrology following. 3. Peripheral vascular disease. History of multiple angiographies/angioplasties, history of left upper extremity AV fistula, now with left index finger dry gangrene, vascular surgery consulted and plan for OR tomorrow. Continue aspirin and statin, Plavix held. 4. Diabetes mellitus. Levemir 50 units twice a day along with Sliding scale insulin coverage with meals and at bedtime. Required 1 dose of IV insulin for hyperglycemia. DVT prophylaxis: Heparin subcutaneous GI prophylaxis: Not needed VS, I&O, 24H, Fishbone Vital Signs/I&O Vital Signs Date Time Temp Pulse Resp B/P (MAP) Pulse Ox O2 Delivery O2 Flow Rate FiO2 10/03/19 14:00 97.6 90 20 140/65 (90) 96 10/03/19 06:00 Room Air 10/02/19 15:15 2 I&O- Last 24 Hours up to 6 AM 10/03/19 06:00 Intake Total 3240 ml Output Total 1357 ml Balance 1883 ml Laboratory Data 24H LABS Laboratory Tests 2 10/02/19 20:15: Bedside Glucose (Misc Panel) 159H 10/03/19 06:48: Nucleated Red Blood Cells % (auto) 0.0, Anion Gap 10, Glomerular Filtration Rate 4.2L, Calcium Level 8.9, Magnesium Level 2.1, Total Bilirubin 0.3, Aspartate Amino Transf (AST/SGOT) 22, Alanine Aminotransferase (ALT/SGPT) 18, Alkaline Phosphatase 187H, Total Protein 7.5, Albumin 2.2L, Albumin/Globulin Ratio 0.42L 10/03/19 11:34: Bedside Glucose (Misc Panel) 484H 10/03/19 14:30: Bedside Glucose (Misc Panel) 320H 10/03/19 16:58: Bedside Glucose (Misc Panel) 68L 10/03/19 17:56: Bedside Glucose (Misc Panel) 87 CBC/BMP Laboratory Tests 10/03/19 06:48 SHANNAN WADSWORTH MD Oct 03, 2019 18:35
--- NOTE | 2019-10-03 19:14 | CR ---
DATE OF CONSULTATION: 10/03/2019 REQUESTING PHYSICIAN: Dr. Diana Boss CONSULTING PHYSICIAN: Dr. Quinteros REASON FOR CONSULTATION: Management of end-stage renal disease on peritoneal dialysis. HISTORY OF PRESENT ILLNESS: Jai Lawson is well known to me. He is a 63-year-old male with a past medical history of end-stage renal disease on peritoneal dialysis, hypertension, insulin dependent diabetes mellitus, anemia of chronic renal failure, secondary hyperparathyroidism of renal origin, peripheral vascular disease and other comorbid conditions mentioned below. Patient is admit status post transmetatarsal amputation of the right foot and also has dry gangrene of the index finger of the left hand where he has an ipsilateral arteriovenous fistula and is pending vascular surgery evaluation and intervention. The patient is seen and examined this morning on the floor and reports pain is tolerably controlled, denies significant leg edema. Denies shortness of breath or chest pain. Reports that his appetite has been poor and offers no other complaints. 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 PAST SURGICAL HISTORY: Bilateral cataracts, tubular implant right eye, fistula in left arm, peritoneal dialysis catheter, angioplasty of right lower extremity status post right transmetatarsal amputation. ALLERGIES: ACETAZOLAMIDE. SOCIAL HISTORY: Lives with his . He is retired. There is no active alcohol, tobacco or drug use. FAMILY HISTORY: Denies family history of renal failure requiring dialysis. There is a history of malignancy in mother and father. HOME MEDICATIONS: Reviewed and include aspirin 81 mg by mouth daily, Plavix 75 mg by mouth daily, insulin, simvastatin 40 mg by mouth nightly, Velphoro 500 mg by mouth with meals, Jaz-Basilio one tablet by mouth daily, losartan 25 mg by mouth nightly, diltiazem 60 mg by mouth daily. REVIEW OF SYSTEMS: Constitutional: Denies fevers or chills. Eyes: Denies visual changes or tearing. Ear, Nose, Throat (ENT): Denies odynophagia, rhinorrhea. Cardiac: Has a history of diastolic congestive heart failure. Denies leg edema or palpitations. Respiratory: Denies shortness of breath or cough. Gastrointestinal: Denies nausea, vomiting, diarrhea. Genitourinary: Denies hematuria or dysuria. Endocrine: Reports insulin dependent diabetes and secondary hyperparathyroidism. Hematologic: Reports chronic anemia. Denies anticoagulant use. Musculoskeletal: Reports recent right transmetatarsal amputation. Denies acute myalgias or arthralgias. Neurologic: Denies seizure or syncope. Psychiatric: Denies anxiety or depression. Skin: Denies any rashes or pruritus. Reports dry gangrene of index finger of left hand. Remainder of review of systems is negative or as per HPI. Vital signs: Temperature 98.5, pulse 93, respiratory rate 18, blood pressure 189/81, saturating 94% on room air. Intake yesterday and output yesterday shows net positive 1.7 liters. Weight in the bed scale today is not recorded. General: The patient is seen sitting up in bed awake, alert, oriented, comfortable, in no apparent distress. is present at the bedside. Extraocular muscles are intact. Pupils are equal and round and reactive to light. Neck is supple. Jugular veins are not elevated. Heart sounds are regular. S1, S2, no murmur. Trace edema in the right lower extremity. Lungs are clear to auscultation bilaterally. No crackle, rale or rhonchus. Abdomen is soft and nontender. Peritoneal dialysis (PD) catheter exit site was not examined. There is peritoneal dialysis fluid in place. Extremities: There is a left upper extremity patent fistula and the index finger of the left hand at the tip has dry gangrene. He is status post right transmetatarsal amputation. There is trace edema in the right lower extremity. There is a SELINA drain present as well at site of transmetatarsal amputation (TMA). Neurologic: He is oriented times three, interactive, at baseline mentation. Skin: Normal temperature and turgor. Psychiatric: Appropriate mood and affect. LABORATORY: White count 20.4, hemoglobin 8.6, platelets 412, sodium 133, potassium 4.0, BUN 83. INPATIENT MEDICATIONS: Reviewed by myself. I discontinued his IV fluids. He is receiving acetaminophen-hydrocodone one tablet by mouth every 4 hours as needed, aspirin 81 mg by mouth daily, atropine and Azopt eye drops, Plavix 75 mg by mouth daily, Aranesp 200 mcg subcu to be given on Monday, diltiazem 60 mg by mouth daily, heparin 5000 units subcu every 12 hours, insulin, losartan 25 mg by mouth twice a day, simvastatin 40 mg by mouth nightly, Velphoro 500 mg by mouth with meals. PROBLEMS: 1. End-stage renal disease on peritoneal dialysis. Orders are written for five exchanges daily, all 2.5% Dianeal with volume of 2 liters. His blood pressures have been elevated. I have discontinued the IV fluids. Peritoneal cell count is also ordered. His volume status and electrolytes are acceptable. 2. Hypertension with end-stage renal disease. His blood pressures are elevated. I stopped the IV fluids. I have increased the losartan to twice a day dosing. He continues on diltiazem. Losartan can be further up titrated if needed. 3. Peripheral vascular disease, status post multiple angiographies/angioplasties of the lower extremity, status post transmetatarsal amputation of the right foot, being followed by podiatry, and also with left index finger dry gangrene with ipsilateral arteriovenous (AV) fistula pending vascular surgery evaluation. Continues on aspirin, Plavix and statin. 4. Anemia related to chronic renal failure, iron deficiency and inflammatory state. Would give a dose of Aranesp over the weekend.
--- NOTE | 2019-10-03 19:18 | IPNPDOC ---
Date Seen The patient was seen on 10/03/19. Progress Note Patient seen and examined. He and his were extensively counseled this morning about my recommendation for intervention to limit the fistula flow in order to increase perfusion to his hand. His hand is warm with good capillary refill, but he does not have a strong radial pulse, and I think banding his fistula will improve flow to the hands. I do not think the wound on his finger is secondary to steal, but I do think it has failed to heal because he has some limit to his perfusion to the hand secondary to the AV fistula. I am not 100% convinced that the finger will heal with increase perfusion, but I am convinced it will not heal with the perfusion as is. At this point, we could see a significant improvement with increased arterial flow to the finger. I definitely think it is worthwhile to try. If a distal fingertip amputation becomes necessary, the additional blood flow will also help with healing the amputation, although I'm hopeful that this will not be necessary. I have spoken to my team and the OR and we can add the patient on for the procedure were afternoon. I have a fairly long case in the morning, and this will likely go later in the afternoon. The patient is agreeable to this plan. We will also continue to follow along with Dr. Chowdary regarding his recent TMA. I've spoken with the patient and Dr. Chowdary, and if the TMA fails to heal, we will be available to help with a below-knee amputation. However, I am hopeful that the patient will have adequate perfusion to heal a TMA. VS, I&O, 24H, Fishbone Vital Signs/I&O Vital Signs Date Time Temp Pulse Resp B/P (MAP) Pulse Ox O2 Delivery O2 Flow Rate FiO2 10/03/19 14:00 97.6 90 20 140/65 (90) 96 10/03/19 06:00 Room Air 10/02/19 15:15 2 I&O- Last 24 Hours up to 6 AM 10/03/19 06:00 Intake Total 3240 ml Output Total 1357 ml Balance 1883 ml Laboratory Data 24H LABS Laboratory Tests 2 10/02/19 20:15: Bedside Glucose (Misc Panel) 159H 10/03/19 06:48: Nucleated Red Blood Cells % (auto) 0.0, Anion Gap 10, Glomerular Filtration Rate 4.2L, Calcium Level 8.9, Magnesium Level 2.1, Total Bilirubin 0.3, Aspartate Amino Transf (AST/SGOT) 22, Alanine Aminotransferase (ALT/SGPT) 18, Alkaline Phosphatase 187H, Total Protein 7.5, Albumin 2.2L, Albumin/Globulin Ratio 0.42L 10/03/19 11:34: Bedside Glucose (Misc Panel) 484H 10/03/19 14:30: Bedside Glucose (Misc Panel) 320H 10/03/19 16:58: Bedside Glucose (Misc Panel) 68L 10/03/19 17:56: Bedside Glucose (Misc Panel) 87 CBC/BMP Laboratory Tests 10/03/19 06:48 ZACARIAS PATRICK MD Oct 03, 2019 19:18
[2019-10-03] MEDS ORDERED: LOSARTAN 25 MG TAB PO SCH (21:00)
--- NOTE | 2019-10-03 21:59 | ECGEPIP ---
[facility] Test Date: 2019-10-02 Pat Name: RYDER DASILVA Department: Room: [place] [address] Gender: Male [employer] Runner: SRAVAN : 1955 Requested By: RADHA Wilson Order Number: [id number] Reading MD: Gabriel Coles Measurements Intervals [place] Rate: 80 P: 24 GA: 167 QRS: 38 QRSD: 132 T: -12 QT: 431 QTc: 500 Interpretive Statements SINUS RHYTHM RIGHT BUNDLE BRANCH BLOCK, Probable RVH. Complete Right bundle branch block new compared with 10/07/2017. Electronically Signed on 10-03-2019 21:58:53 EST by Gabriel Coles
[2019-10-03 22:00] VITALS: BP 142/77
[2019-10-03] MEDS: SIMVASTATIN 40 MG TAB PO SCH (22:41)
[2019-10-03] MEDS ORDERED: ACETAMINOPHEN TAB 650MG DOSE (2X325MG) PO PRN (22:45)
[2019-10-04] VITALS (8 sets, daily range): BP systolic 140–150; BP diastolic 66–75
[2019-10-04 01:11] LABS: APPEARANCE, BODY FLUID CLEAR (CLEAR); PERITONEAL DIALYSATE FL COLOR PALE YELLOW (COLORLESS); SOURCE, BODY FLUID PERITONEAL DIALYSATE
[2019-10-04] MEDS ORDERED: MIDAZOLAM INJ 2 MG/2 ML VIAL (J2250) IV SCH (06:00)
[2019-10-04] MEDS ORDERED: fentaNYL 100 MCG/2 ML INJECTION (J3010) IV SCH (06:00)
[2019-10-04 07:23] LABS: HEMOGLOBIN 8.2 g/dl (13.5-17.5); MEAN CORPUSCULAR HEMOGLOBIN 31.8 pg (27.0-33.0); MEAN CORPUSCULAR HGB CONC 31.5 g/dl (32.0-36.5); MEAN CORPUSCULAR VOLUME 100.8 fl (80.0-96.0); PLATELET COUNT, AUTOMATED 396 10^3/uL (150-450); RED BLOOD COUNT 2.58 10^6/uL (4.30-6.10)
[2019-10-04] MEDS: HumaLOG INSULIN (NovoLOG) PER UNIT SC SCH ×4 (07:30→21:00)
[2019-10-04] MEDS: SUCROFERRIC OXYHYDROXIDE 500MG CHEW TAB (VELPHORO) PO SCH ×3 (08:00→17:45)
[2019-10-04 08:04] LABS: CALCIUM LEVEL 8.6 MG/DL (8.8-10.2); CREATININE FOR GFR 12.6 MG/DL (0.70-1.30); GLOMERULAR FILTRATION RATE 4.3 (>49); POTASSIUM SERUM 3.5 MEQ/L (3.5-5.1)
[2019-10-04] MEDS: LEVEMIR (INSULIN DETEMIR) 1 UNITS/0.01ML SC SCH ×2 (08:50→21:58)
[2019-10-04] MEDS: ASPIRIN 81 MG ENTERIC TAB PO SCH (08:57)
[2019-10-04] MEDS: LOSARTAN 25 MG TAB PO SCH ×2 (08:58→21:59)
[2019-10-04] MEDS: BRINZOLAMIDE 1 % OPHTH SUSP (AZOPT) 10ML OS SCH ×2 (08:59→21:59)
[2019-10-04] MEDS: ATROPINE SULFATE 1% OP SOLN 2 ML BTL OS SCH (08:59)
[2019-10-04] MEDS: prednisoLONE ACET 1% OPHTH SUSP 5ML OS SCH ×2 (08:59→21:59)
[2019-10-04] MEDS ORDERED: DARBEPOETIN 100 MCG/0.5 ML *NON-DIALYSIS* SYRINGE (J0881) SC SCH (09:00)
[2019-10-04] MEDS: HEPARIN SOD (PORCINE) 5000 UNITS/ML VIAL (J1644 PER 1000UNITS) SQ SCH ×2 (09:00→21:59)
[2019-10-04] MEDS ORDERED: LEVEMIR (INSULIN DETEMIR) 1 UNITS/0.01ML SC ONE (09:00)
--- NOTE | 2019-10-04 09:56 | IPNPDOC ---
Text Note Date of Service The patient was seen on 10/04/19. NOTE Vascular surgery. Dr. Andrew. Patient seen and examined this am. Patient is known to have history of PAD, status post right TMA as per Dr. Chowdary 10/02/19. The patient also with history of end-stage renal disease on peritoneal dialysis, the patient has a left upper extremity AV fistula now with left index finger dry gangrene. The patient is reviewed and examined by Dr. Andrew. Plan is for OR later today for possible banding of cephalic vein branches. This has been discussed and reviewed with the patient. The patient verbalizes understanding and agreement. Informed consent is placed on the chart. Patient had juice at 6:30 AM. Currently nothing by mouth. The patient can continue with aspirin 81 mg daily. Plavix 75 mg was given 10/03/19, will hold Plavix this AM, likely restart postoperatively. Continue to follow. VS,Fishbone, I+O VS, Fishbone, I+O Laboratory Tests 10/04/19 07:05 Vital Signs Date Time Temp Pulse Resp B/P (MAP) Pulse Ox O2 Delivery O2 Flow Rate FiO2 10/04/19 08:58 146/75 10/04/19 08:58 80 10/04/19 00:20 99.5 10/03/19 22:00 16 96 Room Air 10/02/19 15:15 2 I&O- Last 24 Hours up to 6 AM 10/04/19 06:00 Intake Total 36679 ml Output Total 58667 ml Balance 586 ml Dulce Espinal Oct 04, 2019 09:56
[2019-10-04] MEDS ORDERED: ONDANSETRON 4MG/2ML VIAL (J2405) As Ordered ONE (10:52)
[2019-10-04] MEDS ORDERED: propofoL 200 MG/20 ML VIAL As Ordered ONE ×2 (10:52→15:03)
[2019-10-04] MEDS ORDERED: LIDOCAINE 2% INJ 100 MG/5 ML SDV (FOR ANES.) As Ordered ONE (10:52)
[2019-10-04] MEDS ORDERED: fentaNYL 100 MCG/2 ML INJECTION (J3010) As Ordered ONE ×2 (10:53→13:20)
[2019-10-04] MEDS ORDERED: MIDAZOLAM INJ 2 MG/2 ML VIAL (J2250) As Ordered ONE ×2 (10:53→13:20)
[2019-10-04] MEDS ORDERED: BUPIVACAINE/EPIN 0.5% 30 ML VIAL As Ordered ONE (13:55)
[2019-10-04] MEDS ORDERED: ceFAZolin 2 GM/D5W 50 ML IV BAG (J0690 PER 500MG) As Ordered ONE (13:55)
[2019-10-04] MEDS ORDERED: HEPARIN SOD (PORCINE) 5000 UNITS/ML VIAL (J1644 PER 1000UNITS) As Ordered ONE (13:55)
[2019-10-04] MEDS ORDERED: HumaLOG INSULIN (NovoLOG) PER UNIT As Ordered ONE (13:56)
[2019-10-04] MEDS ORDERED: LIDOCAINE 1% MDV 20ML VIAL ONE (14:24)
[2019-10-04] MEDS ORDERED: ROPIvacaine 0.5% 30 ML INJECTION (J2795 PER 1MG) ONE (14:24)
[2019-10-04] MEDS ORDERED: EPINEPHrine INJ 1 MG/ML 1ML VIAL ONE (14:24)
[2019-10-04] MEDS ORDERED: HumaLOG INSULIN (NovoLOG) PER UNIT SC ONE ×2 (14:30)
--- NOTE | 2019-10-04 16:06 | ROOPDOC ---
[facility] Report Of Operation Report of Operation DATE OF PROCEDURE: 10/04/19 PREPROCEDURE DIAGNOSES: Left brachiocephalic AV fistula with nonhealing wound left index finger with gangrene POSTPROCEDURE DIAGNOSES: Same PROCEDURE: Banding of left cephalic vein fistula and ligation of cephalic vein branches SURGEON: Zacarias Andrew MD ANESTHESIA: Monitored anesthesia care and left scalene nerve block and local INDICATION FOR PROCEDURE: This is a very pleasant 63-year-old gentleman with a left brachiocephalic AV fistula that has not been used for dialysis because the patient is successfully dialyzing with peritoneal dialysis. He developed a wound on the index finger of the left hand, and it has failed to heal and has progressed to dry gangrene at the tip of the finger. We were asked to see the patient in consultation for possible options to improve perfusion to the hand. He has an excellent thrill and I suspect a large cephalic vein. Risks benefits and alternatives to a banding of the cephalic vein fistula was explained to the patient. Hopefully this will preserve the fistula for future use, but also im prove perfusion to the hand. I did discuss with the patient that if his perfusion did not improve after banding, other options may be considered, and ultimately we may decide to ligate the fistula to preserve this flow to the hand since he is dialyzing successfully with peritoneal dialysis. The patient and his were thoroughly counseled and they were both agreeable to this plan. Informed consent with the patient was obtained. REPORT OF OPERATION: Patient was brought to the operating room in stable cond ition after a left scalene block was placed by our anesthesia colleagues in preop holding. Monitored anesthesia care and antibiotics were administered without complication. His left upper extremity was prepped and draped in a sterile fashion. A timeout was performed. Local anesthesia was administered to skin and subcutaneous tissue. A transverse incision was made over the previous incision from his brachiocephalic fistula creation. We carried this down through the subcutaneous tissues with Bovie cautery. There was an extensive amount of scar tissue around the fistula, and we took great care to carefully dissected out the fistula. This took a bit of time, but we were able to identify 4 large branches off the main cephalic vein and these were sequentially suture ligated and divided. We then attempted to Doppler radial signal and it was very faint and monophasic. We banded the cephalic vein and narrowed it by about 50%, and we had a strong radial signal and palpable radial pulse. We then secured the band and dopplered the cephalic vein over the bicep. There is still excellent flow through the fistula and we were still able to palpate a thrill. We irrigated tissues with copious amounts of saline. The deep tissues were approximated with a running Vicryl suture. Deep dermal layer was approximated with a running Vicryl suture. The skin was closed with a running subcutaneous daily Monocryl suture. The arm was cleaned and dried and Mastisol and Steri-Strips replace the length of the wound. A 4 x 4 and Tegaderm were used as a final dressing. A sling was placed in the left upper extremity which can be removed when the nerve block wears off and motor and sensory function returned to baseline. The patient was then allowed to awaken from anesthesia and taken to recovery in stable condition. ESTIMATED BLOOD LOSS: Approximately 15 mL. COMPLICATIONS: None. PLAN: We will monitor the perfusion to the hand over the next day or two. If we still felt perfusion is not adequate, further intervention may be necessary and we may ultimately choose to ligate the fistula if the hand is significantly threatened, but we were preferred to preservative for future use if possible. We can remove the sling from the left upper extremity once motor and sensory function returned to baseline. The Tegaderm and gauze can be removed from the left upper extremity tomorrow, but try to leave the Steri-Strips intact for 5-7 days to help with wound healing. It is okay for the patient to resume preoperative diet and medications per primary team. ZACARIAS ANDREW MD Oct 04, 2019 16:06
[2019-10-04] MEDS ORDERED: fentaNYL 100 MCG/2 ML INJECTION (J3010) IV PRN (16:15)
[2019-10-04] MEDS ORDERED: NS 1,000 ML IV SCH (16:15)
[2019-10-04] MEDS ORDERED: ONDANSETRON 4MG/2ML VIAL (J2405) IV PRN (16:15)
[2019-10-04] MEDS ORDERED: ceFAZolin SOD 1 GM in D5W MINI-BAG PLUS 50 ML IV ONE (16:30)
--- NOTE | 2019-10-04 20:55 | IPN ---
DATE: 10/04/2019 SUBJECTIVE: The patient is seen and examined at the bedside this morning. He is calm. He is in no acute distress. He had no changes overnight. The vascular surgery team is planning for a procedure this morning. He has not had any issues. He denies any nausea, vomiting, diarrhea or constipation at this time. He has not had any issues with his peritoneal dialysis. Appropriate plans have been made for his peritoneal dialysis drainage prior to his procedure today. OBJECTIVE: VITAL SIGNS: Temperature 98.6, pulse 73, respiratory rate of 16, blood pressure 117/57, pulse oximetry 94% on room air. GENERAL: He is sitting up. He is calm, cooperative and in no acute distress. He is speaking in full sentences. HEENT: Extraocular movements are intact. Pupils are equally round and reactive to light. Head is normocephalic, atraumatic. NECK: Supple. Jugular veins are not elevated. HEART: Heart sounds are regular. S1, S2 normal. No murmurs, rubs or gallops. LUNGS: Clear to auscultation bilaterally. No adventitious breath sounds are appreciated. ABDOMEN: Soft and nontender. Peritoneal dialysis exit site was not examined. EXTREMITIES: There is a left upper extremity patent fistula. The index finger of the left hand, at the tip has dry gangrene and is black. He is status post right lower extremity transmetatarsal amputation. There is a bandage on his right stump, which has a wound VAC draining serosanguineous fluid. There is trace edema in the right lower extremity. PSYCHIATRIC: He is awake, alert and oriented times three. Baseline mentation. SKIN: Normal temperature and turgor. NEUROLOGIC: His cranial nerves II through XII are intact with no obvious focal deficits. LABORATORIES: Today his complete blood count (CBC) demonstrates a white blood cell count of 19, hemoglobin 8.2, hematocrit of 26, and platelet count of 396. His chemistry demonstrates a sodium of 135, potassium 3.5, chloride 96, BUN 82, creatinine 12.6. His fasting glucose is 194. Peritoneal dialysate was studied and found to have only 4 white blood cells, less than 2 red blood cells, pale yellow and clear in appearance. No other imaging or microbiology were done. PROBLEMS: 1. End stage renal disease on peritoneal dialysis. Orders are written for five exchanges daily, all 2.5% DIANEAL with a volume of 2 liters. His volume status and electrolytes are acceptable. 2. Hypertension with end stage renal disease. Blood pressures are within normal limits at this time. His losartan dose does not need to be titrated up any further. 3. Peripheral vascular disease, status post multiple angiographies/angioplasties of the lower extremity, status post transmetatarsal amputation of the right foot. He is being followed by podiatry and vascular surgery. His left index finger has dry gangrene with AV fistula, pending vascular surgery procedure today. He continues on aspirin, Plavix and statin. 4. Anemia of chronic renal failure, iron deficiency and inflammatory state. He will be continued on Aranesp. MTDD
--- NOTE | 2019-10-04 20:56 | IPN ---
DATE: 10/04/2019 He is seen in the postanesthesia care unit (PACU). He has just had his vascular surgery done. He is still drowsy. Vitals are examined. He had a low-grade temperature, maximum temperature (T-max) 100.4 overnight. Labs are reviewed. White cell count is 19, improved from 20.4. His hemoglobin is 8.2. There was minimal drainage in the Henrik-Rodrigues (SELINA) drain today. Lower extremity examination. The dressing is removed and incision is inspected. There is some duskiness on the plantar aspect of the foot. There remains some warmth to the flap; however, capillary refill is sluggish. ASSESSMENT: A 63-year-old male with peripheral vascular disease and diabetes status post transmetatarsal amputation. PLAN: As a precaution, we will start him on cefazolin. Will give the flap a few days to declare itself and reassess on Monday. There is some viability to this, but there is a strong chance that it may not survive and may ultimately require further amputation. Will follow.
--- NOTE | 2019-10-04 21:19 | IPNPDOC ---
Date Seen The patient was seen on 10/04/19. Progress Note HISTORY OF PRESENT ILLNESS: 63-year-old male with past medical history of end- stage renal disease on peritoneal dialysis, hypertension, diabetes mellitus is being admitted status post transmetatarsal amputation of the right foot. Patient has had dry gangrene in the left foot for the past few weeks, underwent amputation of 2 toes with poor wound healing, also underwent multiple angioplasties in the leg without much success with eventual plan for transmetatarsal amputation today. Patient is seen on the floor, resting comfortably in bed, without any complaints at this time. He reports the pain is well-controlled, tolerating diet. He denies any shortness of breath, nausea, vomiting, chest pain, abdominal pain or diarrhea. 10/03/19 Patient seen in the morning, resting comfortably in bed, no acute events overnight, no complaints at this time. He denies any shortness of breath, chest pain, nausea, vomiting, abdominal pain or diarrhea. 10/04/19 Patient seen in the morning, no acute events overnight, scheduled for banding of LUE AV fistula later today, no complaints at this time. He denies any SOB, CP, N/V/D or abdominal pain. 10 point review of system is negative except for above PHYSICAL EXAMINATION: VITAL SIGNS: Please see below. GENERAL: No distress HEENT: Normocephalic, atraumatic, moist mucous membranes NECK: Supple CARDIOVASCULAR EXAMINATION: S1, S2, no murmurs RESPIRATORY EXAMINATION: Clear to auscultation, no wheezing ABDOMINAL EXAMINATION: Soft, nontender, nondistended, positive bowel sounds, peritoneal dialysis catheter in place, no erythema or drainage EXTREMITIES: Left upper extremity AV fistula, index finger of left hand with dry gangrene SKIN: Right foot dressing in place with SELINA draining serosanguineous fluid NEUROLOGICAL EXAMINATION: Alert and oriented 3, no focal deficits PSYCHIATRIC EXAMINATION: Calm and cooperative LABORATORY DATA: See below. MICROBIOLOGY: Please see below. ASSESSMENT: 63-year-old male with past medical history of as his renal disease, hypertension and diabetes mellitus is admitted status post transmetatarsal amputation of the right foot. PLAN: 1. Transmetatarsal amputation of right foot. Secondary to dry gangrene and poor wound healing, management as per podiatry. 2. End-stage renal disease. On peritoneal dialysis, nephrology following. 3. Peripheral vascular disease. History of multiple angiographies/angioplasties, history of left upper extremity AV fistula, having poor blood flow to L hand, scheduled for banding of LUE AV fistula later today. Continue aspirin and statin, will restart Plavix when okay with Vascular surgery. 4. Diabetes mellitus. Levemir 50 units twice a day along with Sliding scale insulin coverage with meals and at bedtime. Morning Lantus dose decreased to 10 units due to NPO s tatus for surgery. DVT prophylaxis: Heparin subcutaneous GI prophylaxis: Not needed VS, I&O, 24H, Fishbone Vital Signs/I&O Vital Signs Date Time Temp Pulse Resp B/P (MAP) Pulse Ox O2 Delivery O2 Flow Rate FiO2 10/04/19 18:30 99.3 81 17 150/74 (99) 96 Room Air 10/04/19 13:55 2 I&O- Last 24 Hours up to 6 AM 10/04/19 06:00 Intake Total 82021 ml Output Total 06455 ml Balance 586 ml Laboratory Data 24H LABS Laboratory Tests 2 10/04/19 00:27: Body Fluid Source PERITONEAL DIALYSATE, Body Fluid WBC (Auto) 4, Body Fluid RBC (Auto) < 2, Peritoneal Fluid Color PALE YELLOW, Peritoneal Fluid Appearance CLEAR 10/04/19 07:05: Nucleated Red Blood Cells % (auto) 0.0, Anion Gap 11, Glomerular Filtration Rate 4.3L, Calcium Level 8.6L 10/04/19 12:14: Bedside Glucose (Misc Panel) 271H 10/04/19 15:58: Bedside Glucose (Misc Panel) 186H 10/04/19 16:50: Bedside Glucose (Misc Panel) 180H 10/04/19 20:44: Bedside Glucose (Misc Panel) 188H CBC/BMP Laboratory Tests 10/04/19 07:05 SHANNAN WADSWORTH MD Oct 04, 2019 21:19
[2019-10-04] MEDS: SIMVASTATIN 40 MG TAB PO SCH (21:59)
[2019-10-05 01:30] VITALS: BP 138/86
[2019-10-05 05:30] VITALS: BP 142/84
[2019-10-05] MEDS: SUCROFERRIC OXYHYDROXIDE 500MG CHEW TAB (VELPHORO) PO SCH ×3 (08:00→17:48)
[2019-10-05] MEDS ORDERED: DARBEPOETIN 100 MCG/0.5 ML *NON-DIALYSIS* SYRINGE (J0881) SC SCH (09:00)
--- NOTE | 2019-10-05 09:14 | IPNPDOC ---
Date Seen The patient was seen on 10/05/19. Progress Note Patient seen and examined. Doing well today postoperative day one status post left brachial cephalic AV fistula banding. He says his hand feels remarkably better and he has full range of motion, which he says he has not had since the fistula was initially placed in January [address] Vega. He says it feels much warmer and his sensation is improved. On exam the left antecubital incision is clean dry and intact, and he still has an excellent thrill over the cephalic vein fistula. His hand is warm and pink, with less than 1 second capillary refill at the fingertips. He has a radial pulse, and the left index finger tip is hyperemic today. I discussed with the patient and his that I'm still not 100% sure this will be adequate blood flow to heal his dry gangrene at the fingertip, and if necessary we will discuss other options, or as a last result we will sacrifice the fistula. However I am hopeful that with this increased perfusion he will slowly start to heal. This will likely take a month or two to completely heal, and it is possible he will lose the distal tip of his finger, but it is also possible that all of that tissue could regenerate, much like in a patient with frostbite. I would avoid any debridements to the fingertip and at this time we just want to keep it clean and dry. The patient and his were extensively counseled and they're agreeable to this plan. We discussed his right lower extremity TMA, and they said yesterday Dr. Karen De Leon was cautiously optimistic about the patient healing. This is good news and I am very glad to hear that he has a possibility to salvage the foot. We certainly would be happy to follow along in case a more proximal amputation is needed, but hopefully this will not be the case. Further recommendations to follow as appropriate. We appreciate the opportunity to participate in the care of this patient. VS, I&O, 24H, Fishbone Vital Signs/I&O Vital Signs Date Time Temp Pulse Resp B/P (MAP) Pulse Ox O2 Delivery O2 Flow Rate FiO2 10/05/19 05:30 98.8 90 18 142/84 (103) 94 Room Air 10/04/19 13:55 2 I&O- Last 24 Hours up to 6 AM 10/05/19 06:00 Intake Total 8300 ml Output Total 97984 ml Balance -2000 ml Laboratory Data 24H LABS Laboratory Tests 2 10/04/19 12:14: Bedside Glucose (Misc Panel) 271H 10/04/19 15:58: Bedside Glucose (Misc Panel) 186H 10/04/19 16:50: Bedside Glucose (Misc Panel) 180H 10/04/19 20:44: Bedside Glucose (Misc Panel) 188H 10/05/19 05:49: Bedside Glucose (Misc Panel) 195H ZACARIAS PATRICK MD Oct 05, 2019 09:14
[2019-10-05] MEDS: HumaLOG INSULIN (NovoLOG) PER UNIT SC SCH ×4 (09:29→21:00)
[2019-10-05] MEDS: LEVEMIR (INSULIN DETEMIR) 1 UNITS/0.01ML SC SCH ×2 (09:29→21:54)
[2019-10-05] MEDS: HEPARIN SOD (PORCINE) 5000 UNITS/ML VIAL (J1644 PER 1000UNITS) SQ SCH ×2 (09:30→21:54)
[2019-10-05] MEDS: LOSARTAN 25 MG TAB PO SCH ×2 (09:30→21:53)
[2019-10-05] MEDS: CLOPIDOGREL 75 MG TAB PO SCH (09:30)
[2019-10-05] MEDS: ASPIRIN 81 MG ENTERIC TAB PO SCH (09:30)
[2019-10-05] MEDS: BRINZOLAMIDE 1 % OPHTH SUSP (AZOPT) 10ML OS SCH ×2 (09:31→21:54)
[2019-10-05] MEDS: ATROPINE SULFATE 1% OP SOLN 2 ML BTL OS SCH (09:31)
[2019-10-05] MEDS: prednisoLONE ACET 1% OPHTH SUSP 5ML OS SCH ×2 (09:31→21:54)
[2019-10-05 10:00] VITALS: BP 145/83
[2019-10-05 14:00] VITALS: BP 139/57
[2019-10-05 18:00] VITALS: BP 151/69
--- NOTE | 2019-10-05 18:02 | IPN ---
DATE: 10/05/2019 Mr. Lawson was seen and examined at the bedside this morning. He does not have any complaints. He is denying any nausea, vomiting, diarrhea, or constipation. He went for his procedure with Dr. Andrew yesterday, and he tolerated it well. He asks if he can drink orange juice otherwise. No issues with the peritoneal dialysis, which was done at 6 a.m. this morning. OBJECTIVE: VITAL SIGNS: Temperature 98.8, pulse 93, respiratory rate 18, blood pressure 143/86, and pulse oximetry of 94% on room air. Yesterday he had 1900 mL of peritoneal dialysate. He produced no urine, and he is net positive 215 mL. GENERAL: He is lying in bed. He is calm with no acute distress, very pleasant. HEAD: Normocephalic, atraumatic. EENT: Pupils are equally round and reactive to light. Extraocular movements are intact. Mucous membranes are moist. Neck is supple with no thyromegaly. No lymphadenopathy. No elevated jugular venous distention (JVD). CHEST: He has even chest rise. LUNGS: Clear to auscultation bilaterally with no adventitious breath sounds appreciated. HEART: He is regular rate and rhythm with no murmurs, rubs, or gallops. Normal S1 and normal S2. ABDOMEN: Soft and nontender to palpation. The site of his peritoneal catheter is clean, dry, and intact. EXTREMITIES: His right lower extremity has a bandage over his previous transmetatarsal amputation (TMA), which has a wound vacuum-assisted closure (VAC) and draining serosanguineous fluid. His left lower extremity has trace pitting edema. Left index finger shows dry gangrene, unchanged from yesterday. PSYCHIATRIC: He is awake, alert, oriented times three. NEUROLOGIC: His cranial nerves II-XII are intact with no focal deficits. LABORATORY DATA: The patient did not undergo labs this morning. No new imaging. PLAN: 1. End-stage renal disease, on peritoneal dialysis. Orders have been written for 5 exchanges daily, all 2.5% Dianeal with a volume of 2 liters. His volume status and electrolytes are currently at this point acceptable. 2. Hypertension with end-stage renal disease. Blood pressures are within normal limits at this time. We will keep him on his current dose of losartan. 3. Peripheral vascular disease, status post multiple angiographies, angioplasties of the lower extremities, status post transmetatarsal amputation of the right foot. He is being followed by podiatry and vascular surgery. His procedure with Dr. Andrew reportedly went well yesterday; therefore, his gangrene on his left index finger hopefully will heal given the revision of his arteriovenous (AV) fistula, and he continues on aspirin, Plavix, and statin. 4. Anemia of chronic renal disease, iron deficiency, and inflammatory state. He will be continued on Aranesp.
[2019-10-05] MEDS: SIMVASTATIN 40 MG TAB PO SCH (21:53)
[2019-10-05 22:00] VITALS: BP 142/63
--- NOTE | 2019-10-05 22:29 | IPNPDOC ---
Date Seen The patient was seen on 10/05/19. Progress Note HISTORY OF PRESENT ILLNESS: 63-year-old male with past medical history of end- stage renal disease on peritoneal dialysis, hypertension, diabetes mellitus is being admitted status post transmetatarsal amputation of the right foot. Patient has had dry gangrene in the left foot for the past few weeks, underwent amputation of 2 toes with poor wound healing, also underwent multiple angioplasties in the leg without much success with eventual plan for transmetatarsal amputation today. Patient is seen on the floor, resting comfortably in bed, without any complaints at this time. He reports the pain is well-controlled, tolerating diet. He denies any shortness of breath, nausea, vomiting, chest pain, abdominal pain or diarrhea. 10/03/19 Patient seen in the morning, resting comfortably in bed, no acute events overnight, no complaints at this time. He denies any shortness of breath, chest pain, nausea, vomiting, abdominal pain or diarrhea. 10/04/19 Patient seen in the morning, no acute events overnight, scheduled for banding of LUE AV fistula later today, no complaints at this time. He denies any SOB, CP, N/V/D or abdominal pain. 10/05/19 Patient comfortable in bed, without complaints, reports improvement in L hand function & warmth after surgery yesterday, no complaints at this time. 10 point review of system is negative except for above PHYSICAL EXAMINATION: VITAL SIGNS: Please see below. GENERAL: No distress HEENT: Normocephalic, atraumatic, moist mucous membranes NECK: Supple CARDIOVASCULAR EXAMINATION: S1, S2, no murmurs RESPIRATORY EXAMINATION: Clear to auscultation, no wheezing ABDOMINAL EXAMINATION: Soft, nontender, nondistended, positive bowel sounds, peritoneal dialysis catheter in place, no erythema or drainage EXTREMITIES: Left upper extremity AV fistula, index finger of left hand with dry gangrene, improved coloration & warmth of the hand w/ significantly improved cap refill SKIN: Right foot dressing in place with SELINA draining scant amount of serosanguineous fluid NEUROLOGICAL EXAMINATION: Alert and oriented 3, no focal deficits PSYCHIATRIC EXAMINATION: Calm and cooperative LABORATORY DATA: See below. MICROBIOLOGY: Please see below. ASSESSMENT: 63-year-old male with past medical history of as his renal disease, hypertension and diabetes mellitus is admitted status post transmetatarsal amputation of the right foot. PLAN: 1. Transmetatarsal amputation of right foot. Secondary to dry gangrene and poor wound healing, management as per podiatry. 2. End-stage renal disease. On peritoneal dialysis, baseline, nephrology following. 3. Peripheral vascular disease. History of multiple angiographies/angioplasties, history of left upper extremity AV fistula, s/p banding of LUE AV fistula with significant improvement in L hand blood flow today. Continue aspirin, Plavix and statin. 4. Diabetes mellitus. Levemir 50 units twice a day along with Sliding scale insulin coverage with meals and at bedtime. DVT prophylaxis: Heparin subcutaneous GI prophylaxis: Not needed VS, I&O, 24H, Fishbone Vital Signs/I&O Vital Signs Date Time Temp Pulse Resp B/P (MAP) Pulse Ox O2 Delivery O2 Flow Rate FiO2 10/05/19 21:53 142/63 10/05/19 18:00 99.1 88 17 95 Room Air 10/04/19 13:55 2 I&O- Last 24 Hours up to 6 AM 10/05/19 06:00 Intake Total 8300 ml Output Total 68492 ml Balance -2000 ml Laboratory Data 24H LABS Laboratory Tests 2 10/05/19 05:49: Bedside Glucose (Misc Panel) 195H 10/05/19 11:22: Bedside Glucose (Misc Panel) 287H 10/05/19 16:25: Bedside Glucose (Misc Panel) 309H 10/05/19 21:30: Bedside Glucose (Misc Panel) 244H SHANNAN WADSWORTH MD Oct 05, 2019 22:29
[2019-10-06 06:00] VITALS: BP 150/77
[2019-10-06 06:59] LABS: HEMATOCRIT 24.1 % (42.0-52.0); HEMOGLOBIN 7.8 g/dl (13.5-17.5); MEAN CORPUSCULAR HEMOGLOBIN 32.8 pg (27.0-33.0); MEAN CORPUSCULAR HGB CONC 32.4 g/dl (32.0-36.5); MEAN CORPUSCULAR VOLUME 101.3 fl (80.0-96.0); PLATELET COUNT, AUTOMATED 361 10^3/uL (150-450); RED BLOOD COUNT 2.38 10^6/uL (4.30-6.10); WHITE BLOOD COUNT 20.2 10^3/uL (4.0-10.0)
[2019-10-06 07:27] LABS: CREATININE FOR GFR 12.1 MG/DL (0.70-1.30); GLOMERULAR FILTRATION RATE 4.5 (>49); POTASSIUM SERUM 3.5 MEQ/L (3.5-5.1)
[2019-10-06] MEDS: LEVEMIR (INSULIN DETEMIR) 1 UNITS/0.01ML SC SCH ×2 (07:54→22:29)
[2019-10-06] MEDS: HumaLOG INSULIN (NovoLOG) PER UNIT SC SCH ×4 (07:55→21:00)
[2019-10-06] MEDS: HEPARIN SOD (PORCINE) 5000 UNITS/ML VIAL (J1644 PER 1000UNITS) SQ SCH ×2 (07:55→22:30)
[2019-10-06] MEDS: ASPIRIN 81 MG ENTERIC TAB PO SCH (07:56)
[2019-10-06] MEDS: SUCROFERRIC OXYHYDROXIDE 500MG CHEW TAB (VELPHORO) PO SCH ×3 (07:56→18:00)
[2019-10-06] MEDS: LOSARTAN 25 MG TAB PO SCH ×2 (07:56→22:29)
[2019-10-06] MEDS: CLOPIDOGREL 75 MG TAB PO SCH (07:56)
[2019-10-06] MEDS: prednisoLONE ACET 1% OPHTH SUSP 5ML OS SCH ×2 (07:57→22:30)
[2019-10-06] MEDS: ATROPINE SULFATE 1% OP SOLN 2 ML BTL OS SCH (07:57)
[2019-10-06] MEDS: BRINZOLAMIDE 1 % OPHTH SUSP (AZOPT) 10ML OS SCH ×2 (07:57→22:30)
[2019-10-06] MEDS: DOCUSATE SODIUM 100 MG CAP PO SCH ×2 (09:00→22:32)
--- NOTE | 2019-10-06 10:40 | PHACANCOPD ---
PHARMACY VANCOMYCIN DOSING Pt Demographics Demographics Patient Age:63 , Weight:100.900 , Gender: male Adjusted Body Weight Date: 10/06/19, Adjusted Body Weight: Kg Events Past 24 Hours Events Past 24 Hours: YES: Dialysis (peritoneal dialysis), Pending Procedures (transmetatarsal amputation); NO: Diuretic Therapy, Change in CrCl, Fever, Elevation in WBC, Pending Diagnostics, Other Vancomycin Vancomycin indication: wet gangrene Vancomycin Target Ranges: 15-20 mcg/ml Vancomycin Load Y/N: Yes Load Dose Date Time Vancomycin Load Dose: 2g Date: 10/06 Time: ~11am Vancomycin Dose Date: 10/07/19. Current Vancomycin Dose: [750mg IV q24h @12] Intermittent Dosing?: No Labs Labs Item Value Date Time White Blood Count 19.0 10^3/uL H 10/04/19 0705 White Blood Count 20.2 10^3/uL H 10/06/19 0629 Creatinine 12.60 MG/DL *H 10/04/19 0705 Creatinine 12.10 MG/DL *H 10/06/19 0629 Creatinine Clearance Date:10/06/19. Creatinine Clearance: . Pending Labs Random vancomycin level scheduled 10/07 in AM Assessment and Plan Maintaining Current Dose?: Yes Reason for dose change: No Dose Change Pharmacist Note Pharmacist Note Date: 10/06/19. Pharmacist note: pt has been started on vancomycin for wet gangrene of his R foot, planned for R transmetatarsal amputation. He has not been on vancomycin here before. Past wound cultures for that foot have grown Enterobacter, E. faecalis and Staph coag neg. No cultures pending for this admission. I have started him on vancomycin 2g today with a random level scheduled for tomorrow morning ~18 hours later. I have tentatively started him on Vancomycin 750mg IV q24h to begin tomorrow. We will follow up with the level in the morning and make adjustments as necessary. Hany Dominique Pharm.D. Oct 06, 2019 10:40
[2019-10-06] MEDS: VANCOMYCIN HCL 1,000 MG, VIAL MATE ADAPTER 1 EACH in D5W 250 ML IV SCH ×2 (10:42→12:46)
--- NOTE | 2019-10-06 10:47 | IPNPDOC ---
Date Seen The patient was seen on 10/06/19. Progress Note Patient seen and examined. No complaints overnight. He says he has felt quite tired but otherwise okay. On exam of his left upper extremity, the incision and Steri-Strips are clean dry and intact in the antecubital region. He still has good inflow through the cephalic vein fistula with a thrill. He has a palpable radial pulse and a biphasic signal at the radial and ulnar arteries. The hand is warm and well-perfused and he says it feels much better. The index finger on the left hand has dry gangrene at the tip but it is hyperemic and stable. We would avoid any type of debridements and hopefully the tip will regenerate with increased blood flow. This may take a bit of time. We will watch it closely. The patient is also status post right transmetatarsal amputation with Dr. Chowdary, and I unwrapped this today to take a look. The plantar flap has dry and wet gangrene with odor and is nonviable. I discussed this with the patient and Dr. Chowdary today. I believe the safest thing is to proceed with below knee amputation today to prevent ascending infection on the right leg. I discussed with the hospitalist team and they will start some empiric antibiotics until amputation later today. Risks benefits and alternatives to a right below-knee amputation were explained to the patient. I do believe he has a sufficient tibial blood flow to heal a below-knee amputation, but I did warn him that if I found significant ischemic tissue or nonviable muscle, we would have to do an above- knee amputation but I feel this is less than 5% chance. Most likely we will be able to do a successful below-knee amputation. The patient and his were extensively counseled and the patient is agreeable to this plan and informed consent was obtained. VS, I&O, 24H, Fishbone Vital Signs/I&O Vital Signs Date Time Temp Pulse Resp B/P (MAP) Pulse Ox O2 Delivery O2 Flow Rate FiO2 10/06/19 07:57 88 155/75 10/06/19 06:00 99.2 17 97 Room Air 10/04/19 13:55 2 I&O- Last 24 Hours up to 6 AM 10/06/19 06:00 Intake Total 8760 ml Output Total 9155 ml Balance -395 ml Laboratory Data 24H LABS Laboratory Tests 2 10/05/19 11:22: Bedside Glucose (Misc Panel) 287H 10/05/19 16:25: Bedside Glucose (Misc Panel) 309H 10/05/19 21:30: Bedside Glucose (Misc Panel) 244H 10/06/19 06:29: Nucleated Red Blood Cells % (auto) 0.0, Anion Gap 11, Glomerular Filtration Rate 4.5L, Calcium Level 8.0L CBC/BMP Laboratory Tests 10/06/19 06:29 ZACARIAS PATRICK MD Oct 06, 2019 10:47
[2019-10-06] MEDS ORDERED: propofoL 200 MG/20 ML VIAL As Ordered ONE (13:18)
[2019-10-06] MEDS ORDERED: LIDOCAINE 2% INJ 100 MG/5 ML SDV (FOR ANES.) As Ordered ONE (13:18)
[2019-10-06] MEDS ORDERED: ONDANSETRON 4MG/2ML VIAL (J2405) As Ordered ONE (13:19)
[2019-10-06] MEDS ORDERED: MIDAZOLAM INJ 2 MG/2 ML VIAL (J2250) As Ordered ONE (13:19)
[2019-10-06] MEDS ORDERED: fentaNYL 100 MCG/2 ML INJECTION (J3010) As Ordered ONE ×2 (13:19→16:17)
[2019-10-06] MEDS ORDERED: METOCLOPRAMIDE INJ 10MG/2ML VIAL (J2765) As Ordered ONE (14:34)
[2019-10-06] MEDS ORDERED: ePHEDrine SULFATE 25 MG/5 ML(5MG/ML) SYRINGE As Ordered ONE (14:46)
[2019-10-06] MEDS ORDERED: ETOMIDATE INJ 20MG/10ML VIAL As Ordered ONE (15:02)
[2019-10-06] MEDS ORDERED: GLYCOPYRROLATE INJ 0.2 MG/ML 2 ML VIAL As Ordered ONE (15:07)
[2019-10-06] MEDS ORDERED: NEOSTIGMINE 10 MG/10 ML VIAL (J2710) As Ordered ONE (15:07)
[2019-10-06] MEDS ORDERED: ACETAMINOPHEN 1000MG 100ML IV BTL (OFIRMEV) (J0131 PER 10MG) As Ordered ONE (15:07)
[2019-10-06] MEDS ORDERED: BUPIVACAINE/EPIN 0.5% 30 ML VIAL As Ordered ONE (15:12)
[2019-10-06] MEDS ORDERED: KETAMINE HCL 200 MG/20 ML VIAL As Ordered ONE (16:26)
--- NOTE | 2019-10-06 16:36 | IPN ---
DATE: 10/06/2019 Mr. Lawson is seen this morning on his bedside. I walked into the room while the patient and his both were in tears and the patient's brother is present in the room. The patient's informed me that Dr. Andrew just left the room about five minutes ago and informed them that the patient is going to need a [id number] amputation due to which they are very sad. He had a right foot transmetatarsal amputation (TMA) done a few days ago; however wound showed no healing and due to poor circulation is not likely to heal. He did have three angioplasties prior to this procedure in order to improve blood flow; however, he does have significant peripheral vascular disease, which is now necessitating a zrhxg-[id number]-ifvh amputation. In the meantime, his peritoneal dialysis has been functioning very well. He also had left arm arteriovenous (AV) fistula banded because of ischemia at the tip of left index finger. The patient has no dyspnea, chest pain, fever or chills at present. He does have persistent leukocytosis. PHYSICAL EXAMINATION: Temperature 99.2 degrees Fahrenheit, heart rate 88 per minute and respiratory rate 18 per minute. Blood pressure 155/75 mmHg and oxygen saturation 97% on room air. His head is atraumatic. Neck supple and without jugular venous distention (JVD) or thyroid enlargement. Heart sounds regular and lungs clear to auscultation. Abdomen: Soft, distended with peritoneal dialysis solution and nontender. Extremities: Without any cyanosis or clubbing. Left arm AV fistula is patent and surgical incision is covered with dressing. He has tip of his left index finger, which is gangrenous, but without any signs of infection. Right foot stump is in the dressing. Neurologically, he is at his baseline mentation without a focal deficit. Today's labs show WBC count 20.2, hemoglobin 7.8 and hematocrit 24.1. Platelets 361. Sodium 136, potassium 3.5, CO2 27, BUN 86 and creatinine 12.1. Glucose 174 and calcium 8.0. PROBLEMS: 1. End-stage renal disease. The patient remains on peritoneal dialysis, which seems to be working reasonably well and we will continue with current prescription of five exchanges per day. 2. Anemia. His anemia did get worse following his foot surgery and is likely to require transfusion. I would recommend 2 units of packed red blood cells during his surgery today for [id number]-[id number] amputation. We will follow up with complete blood count (CBC) and consider to transfuse further as needed. 3. Hypokalemia. His potassium level is borderline and will need to be monitored. We will check his electrolytes again and consider to replace his potassium as needed. 4. Peripheral vascular disease with ischemic right foot. The patient did have a transmetatarsal amputation; however, it did not heal and is now scheduled for a right tszbm-yvq-hlty amputation today. Unfortunately, his peripheral vascular disease is significant and did not help, even after multiple angioplasty procedures on his leg.
[2019-10-06] MEDS ORDERED: ROCURONIUM BROMIDE 50 MG/5 ML VIAL As Ordered ONE (16:51)
--- NOTE | 2019-10-06 16:56 | ROOPDOC ---
[facility] Report Of Operation Report of Operation DATE OF PROCEDURE: 10/06/19 PREPROCEDURE DIAGNOSES: Wet and dry gangrene right TMA amputation POSTPROCEDURE DIAGNOSES: Same PROCEDURE: Right below-knee amputation SURGEON: Zacarias Andrew MD ANESTHESIA: Gen. anesthesia and local anesthesia INDICATION FOR PROCEDURE: This is a very pleasant 63-year-old gentleman with peripheral vascular disease and recent transmetatarsal amputation. Upon my exam of the patient's foot today, I found wet and dry gangrene of the plantar flap with odor and foul drainage. I discussed with the patient and his that the best option is for amputation sooner rather than later, we will plan for a below-knee amputation unless there is a ascending infection or nonviable tissue or lack of vascular flow, in which case we would need to do an above-knee amputation. I estimate only a 5% chance that the patient would need an above- knee amputation, as I believe he has suitable arterial flow for a below-knee amputation, and I'm hoping we caught the gangrenous changes early enough that the tissue will not be grossly infected. Risks benefits and alternatives were explained and the patient was agreeable to proceed. Informed consent was obtained. REPORT OF OPERATION: The patient was brought to the ER in stable condition and placed supine on your table. General anesthesia and antibiotics were administered without complication. The patient also received 1 unit of blood for pre-existing anemia that was ordered for him on the floor, but had not yet been given. His right lower extremity was prepped and draped in a sterile fashion. A timeout was performed. An Esmarch was used to exsanguinate the leg and a tourniquet was inflated to 250 mmHg. A transverse incision was made 15 cm distal to the tibial plateau on the anterior surface of the leg and carried down to the subcutaneous tissue with Bovie cautery. Arterial structures were heavily calcified and not compressible with the tourniquet, so we had a considerable amount of arterial flow and excessive venous flow due to limitation of venous outflow from the tourniquet. Therefore, we deflated the tourniquet ended the procedure without a tourniquet. This helped with our blood loss considerably once the venous outflow was restored. We created a long posterior flap. We continued our dissection through the anterior muscle groups down to the tibia and fibula. Vascular structures were suture ligated and divided. The periosteum was elevated proximally for 4 cm on both the tibia and fibula. Once we had circumferential exposure of the bones, they were transected with the bone saw. We then used a rasp to smooth and bevel the anterior aspects of the bone to prevent future skin and soft tissue erosion. We then used a Bovie cautery to complete the posterior flap dissection. The lower leg and foot specimen was sent for pathology. We then utilized silk suture to suture ligate the remaining blood vessels. Copious amounts of normal saline irrigation was used to wash the tissue of the stump. Local anesthesia was administered to the skin and subcutaneous tissue and around the nerve structures. We then used Metzenbaum scissors to trim the posterior flap for tension-free closure to the anterior tissue. The deep muscle fascia was closed to the periosteum over the tibia with [id number] Vicryl sutures. We then closed the superficial fascia with [id number] Vicryl sutures leaving no gaps in the fascia. We then irrigated a second time in the superficial tissue. Nylon mattress sutures were used to approximate the skin edges. Skin ghislaine were placed between the mattress sutures as a final skin closure. Xeroform, fluffs, kerlix and an Eladio wrap were used as a final dressing. Following this, the patient was allowed to awaken from anesthesia was taken to recovery in stable condition. He tolerated the procedure well. SPECIMEN: Right lower extremity sent for pathology DRAINS: None ESTIMATED BLOOD LOSS: Approximately 150 mL. COMPLICATIONS: None. PLAN: We will plan for patient to start physical therapy and occupational therapy as soon as he feels up to it, possibly as early as tomorrow. Okay for out of bed with assist from a vascular standpoint. Okay to resume preoperative diet medications. Analgesia when necessary. Vascular will do daily dressing changes. ZACARIAS ANDREW MD Oct 06, 2019 16:56
[2019-10-06] MEDS ORDERED: diazePAM 5 MG TAB PO PRN (17:00)
[2019-10-06] MEDS ORDERED: PERCOCET 5MG/325MG TAB PO PRN ×2 (17:00)
[2019-10-06] MEDS ORDERED: NS 1,000 ML IV SCH (17:30)
[2019-10-06] MEDS ORDERED: fentaNYL 100 MCG/2 ML INJECTION (J3010) IV PRN (17:30)
[2019-10-06] MEDS ORDERED: ONDANSETRON 4MG/2ML VIAL (J2405) IV PRN (17:30)
[2019-10-06 17:45] VITALS: BP 162/73
[2019-10-06 18:15] VITALS: BP 175/92
[2019-10-06 18:45] VITALS: BP 146/68
[2019-10-06 19:15] VITALS: BP 144/69
[2019-10-06 20:07] LABS: HEMATOCRIT 26.4 % (42.0-52.0); HEMOGLOBIN 8.6 g/dl (13.5-17.5); MEAN CORPUSCULAR HEMOGLOBIN 31.7 pg (27.0-33.0); MEAN CORPUSCULAR HGB CONC 32.6 g/dl (32.0-36.5); MEAN CORPUSCULAR VOLUME 97.4 fl (80.0-96.0); PLATELET COUNT, AUTOMATED 344 10^3/uL (150-450); RED BLOOD COUNT 2.71 10^6/uL (4.30-6.10); WHITE BLOOD COUNT 19.1 10^3/uL (4.0-10.0)
[2019-10-06 20:37] LABS: ALBUMIN 1.8 GM/DL (3.2-5.2); CALCIUM LEVEL 8.2 MG/DL (8.8-10.2); CREATININE FOR GFR 11.6 MG/DL (0.70-1.30); GLOMERULAR FILTRATION RATE 4.7 (>49); PHOSPHORUS LEVEL 3.8 MG/DL (2.5-4.9); POTASSIUM SERUM 3.3 MEQ/L (3.5-5.1)
--- NOTE | 2019-10-06 21:23 | IPNPDOC ---
Date Seen The patient was seen on 10/06/19. Progress Note HISTORY OF PRESENT ILLNESS: 63-year-old male with past medical history of end- stage renal disease on peritoneal dialysis, hypertension, diabetes mellitus is being admitted status post transmetatarsal amputation of the right foot. Patient has had dry gangrene in the left foot for the past few weeks, underwent amputation of 2 toes with poor wound healing, also underwent multiple angioplasties in the leg without much success with eventual plan for transmetatarsal amputation today. Patient is seen on the floor, resting comfortably in bed, without any complaints at this time. He reports the pain is well-controlled, tolerating diet. He denies any shortness of breath, nausea, vomiting, chest pain, abdominal pain or diarrhea. 10/03/19 Patient seen in the morning, resting comfortably in bed, no acute events overnight, no complaints at this time. He denies any shortness of breath, chest pain, nausea, vomiting, abdominal pain or diarrhea. 10/04/19 Patient seen in the morning, no acute events overnight, scheduled for banding of LUE AV fistula later today, no complaints at this time. He denies any SOB, CP, N/V/D or abdominal pain. 10/05/19 Patient comfortable in bed, without complaints, reports improvement in L hand function & warmth after surgery yesterday, no complaints at this time. 10/06/19 Patient seen in the morning, without complaints, has what gangrene at the site of metatarsal amputation, evaluated by rescue surgery, plan for right BKA later today. 10 point review of system is negative except for above PHYSICAL EXAMINATION: VITAL SIGNS: Please see below. GENERAL: No distress HEENT: Normocephalic, atraumatic, moist mucous membranes NECK: Supple CARDIOVASCULAR EXAMINATION: S1, S2, no murmurs RESPIRATORY EXAMINATION: Clear to auscultation, no wheezing ABDOMINAL EXAMINATION: Soft, nontender, nondistended, positive bowel sounds, peritoneal dialysis catheter in place, no erythema or drainage EXTREMITIES: Left upper extremity AV fistula, index finger of left hand with dry gangrene, improved coloration & warmth of the hand w/ significantly improved cap refill SKIN: Right foot dressing in place with SELINA draining scant amount of serosanguineous fluid NEUROLOGICAL EXAMINATION: Alert and oriented 3, no focal deficits PSYCHIATRIC EXAMINATION: Calm and cooperative LABORATORY DATA: See below. MICROBIOLOGY: Please see below. ASSESSMENT: 63-year-old male with past medical history of as his renal disease, hypertension and diabetes mellitus is admitted status post transmetatarsal amputation of the right foot. PLAN: 1. Transmetatarsal amputation of right foot. Secondary to dry gangrene and poor wound healing, postop wound healing inappropriate, scheduled for BKA later today. 2. End-stage renal disease. On peritoneal dialysis, baseline, nephrology following. Anemia worsened, scheduled to receive packed red blood cell transfusion prior to/during surgery. 3. Peripheral vascular disease. History of multiple angiographies/angioplasties, history of left upper extremity AV fistula, s/p banding of LUE AV fistula with significant improvement in L hand blood flow today. Continue aspirin, Plavix and statin. 4. Diabetes mellitus. Levemir 50 units twice a day along with Sliding scale insulin coverage with meals and at bedtime. DVT prophylaxis: Heparin subcutaneous GI prophylaxis: Not needed VS, I&O, 24H, Fishbone Vital Signs/I&O Vital Signs Date Time Temp Pulse Resp B/P (MAP) Pulse Ox O2 Delivery O2 Flow Rate FiO2 10/06/19 19:15 98.2 72 13 144/69 (94) 100 Nasal Cannula 2.0 I&O- Last 24 Hours up to 6 AM 10/06/19 06:00 Intake Total 8760 ml Output Total 9155 ml Balance -395 ml Laboratory Data 24H LABS Laboratory Tests 2 10/05/19 21:30: Bedside Glucose (Misc Panel) 244H 10/06/19 06:29: Nucleated Red Blood Cells % (auto) 0.0, Anion Gap 11, Glomerular Filtration Rate 4.5L, Calcium Level 8.0L 10/06/19 11:26: Bedside Glucose (Misc Panel) 253H 10/06/19 14:14: Bedside Glucose (Misc Panel) 276H 10/06/19 16:45: Bedside Glucose (Misc Panel) 202H 10/06/19 19:57: Nucleated Red Blood Cells % (auto) 0.0, Anion Gap 10, Glomerular Filtration Rate 4.7L, Calcium Level 8.2L, Phosphorus Level 3.8, Albumin 1.8L CBC/BMP Laboratory Tests 10/06/19 06:29 10/06/19 19:57 SHANNAN WADSWORTH MD Oct 06, 2019 21:23
[2019-10-06 21:50] VITALS: BP 131/67
[2019-10-06] MEDS: SIMVASTATIN 40 MG TAB PO SCH (22:29)
[2019-10-07] VITALS (8 sets, daily range): BP systolic 131–175; BP diastolic 55–79; O2SAT 97
[2019-10-07] MEDS: NORCO, ANEXSIA 5/325MG TABLET (HYDROcodone/ACETAMINOPHEN) PO PRN ×2 (06:34→10:13)
[2019-10-07 06:47] LABS: ALBUMIN 1.8 GM/DL (3.2-5.2); CALCIUM LEVEL 8.6 MG/DL (8.8-10.2); CREATININE FOR GFR 12.1 MG/DL (0.70-1.30); GLOMERULAR FILTRATION RATE 4.5 (>49); PHOSPHORUS LEVEL 4.3 MG/DL (2.5-4.9); POTASSIUM SERUM 3.7 MEQ/L (3.5-5.1); VANCOMYCIN RANDOM 24.3 UG/ML
[2019-10-07 07:26] LABS: HEMATOCRIT 29.5 % (42.0-52.0); HEMOGLOBIN 9.5 g/dl (13.5-17.5); MEAN CORPUSCULAR HEMOGLOBIN 31.4 pg (27.0-33.0); MEAN CORPUSCULAR HGB CONC 32.2 g/dl (32.0-36.5); MEAN CORPUSCULAR VOLUME 97.4 fl (80.0-96.0); PLATELET COUNT, AUTOMATED 371 10^3/uL (150-450); RED BLOOD COUNT 3.03 10^6/uL (4.30-6.10); WHITE BLOOD COUNT 20.4 10^3/uL (4.0-10.0)
[2019-10-07] MEDS: HumaLOG INSULIN (NovoLOG) PER UNIT SC SCH ×4 (07:30→21:00)
[2019-10-07] MEDS: SUCROFERRIC OXYHYDROXIDE 500MG CHEW TAB (VELPHORO) PO SCH ×3 (08:00→17:29)
[2019-10-07] MEDS: LEVEMIR (INSULIN DETEMIR) 1 UNITS/0.01ML SC SCH ×2 (09:00→21:08)
[2019-10-07] MEDS: ASPIRIN 81 MG ENTERIC TAB PO SCH (09:11)
[2019-10-07] MEDS: HEPARIN SOD (PORCINE) 5000 UNITS/ML VIAL (J1644 PER 1000UNITS) SQ SCH ×2 (09:12→21:09)
[2019-10-07] MEDS: DOCUSATE SODIUM 100 MG CAP PO SCH ×2 (09:13→21:09)
[2019-10-07] MEDS: LOSARTAN 25 MG TAB PO SCH (09:21)
[2019-10-07] MEDS: BRINZOLAMIDE 1 % OPHTH SUSP (AZOPT) 10ML OS SCH ×2 (09:22→21:09)
[2019-10-07] MEDS: ATROPINE SULFATE 1% OP SOLN 2 ML BTL OS SCH (09:22)
[2019-10-07] MEDS: prednisoLONE ACET 1% OPHTH SUSP 5ML OS SCH ×2 (09:23→21:09)
[2019-10-07] MEDS ORDERED: VANCOMYCIN INTERMITTENT/PULSE DOSING BY CLINICAL PHARMACIST PER DOSING PROTOCOL XX SCH (10:30)
--- NOTE | 2019-10-07 10:32 | PHACANCOPD ---
PHARMACY VANCOMYCIN DOSING Pt Demographics Demographics Patient Age:63 , Weight:100.900 , Gender: male Adjusted Body Weight Date: 10/06/19, Adjusted Body Weight: Kg Events Past 24 Hours Events Past 24 Hours: YES: Elevation in WBC Vancomycin Vancomycin indication: wet gangrene Vancomycin Target Ranges: 15-20 mcg/ml Vancomycin Load Y/N: Yes Load Dose Date Time Vancomycin Load Dose: 2g Date: 10/06 Time: ~11am Vancomycin Dose Date: 10/07/19. Current Vancomycin Dose: Intermittent Dosing?: Yes Labs Creatinine Clearance Date:10/06/19. Creatinine Clearance: . Pending Labs Random vancomycin level scheduled 10/07 in AM Assessment and Plan Maintaining Current Dose?: No Reason for dose change: Trough too high Pharmacist Note Pharmacist Note Date: 10/07/19. Pharmacist note: Random vancomycin level this morning resulted at 24.3. We'll hold dose for today and draw another random level tomorrow morning. Pharmacy will continue to monitor and make adjustments as needed. Date: 10/06/19. Pharmacist note: pt has been started on vancomycin for wet gangrene of his R foot, planned for R transmetatarsal amputation. He has not been on vancomycin here before. Past wound cultures for that foot have grown Enterobacter, E. faecalis and Staph coag neg. No cultures pending for this admission. I have started him on vancomycin 2g today with a random level scheduled for tomorrow morning ~18 hours later. I have tentatively started him on Vancomycin 750mg IV q24h to begin tomorrow. We will follow up with the level in the morning and make adjustments as necessary. [facility] Oct 07, 2019 10:32
[2019-10-07] MEDS ORDERED: VANCOMYCIN HCL 750 MG, VIAL MATE ADAPTER 1 EACH in D5W 250 ML IV SCH (12:00)
[2019-10-07] MEDS ORDERED: LACTULOSE 20 GM/30 ML SYRUP UD PO PRN (13:30)
[2019-10-07] MEDS: MIRALAX *UNIT DOSE* 17GM PACKET PO SCH (13:51)
--- NOTE | 2019-10-07 15:43 | IPNPDOC ---
Date Seen The patient was seen on 10/07/19. Progress Note HISTORY OF PRESENT ILLNESS: 63-year-old male with past medical history of end- stage renal disease on peritoneal dialysis, hypertension, diabetes mellitus is being admitted status post transmetatarsal amputation of the right foot. Patient has had dry gangrene in the left foot for the past few weeks, underwent amputation of 2 toes with poor wound healing, also underwent multiple angioplasties in the leg without much success with eventual plan for transmetatarsal amputation today. Patient is seen on the floor, resting comfortably in bed, without any complaints at this time. He reports the pain is well-controlled, tolerating diet. He denies any shortness of breath, nausea, vomiting, chest pain, abdominal pain or diarrhea. 10/03/19 Patient seen in the morning, resting comfortably in bed, no acute events overnight, no complaints at this time. He denies any shortness of breath, chest pain, nausea, vomiting, abdominal pain or diarrhea. 10/04/19 Patient seen in the morning, no acute events overnight, scheduled for banding of LUE AV fistula later today, no complaints at this time. He denies any SOB, CP, N/V/D or abdominal pain. 10/05/19 Patient comfortable in bed, without complaints, reports improvement in L hand function & warmth after surgery yesterday, no complaints at this time. 10/06/19 Patient seen in the morning, without complaints, has what gangrene at the site of metatarsal amputation, evaluated by rescue surgery, plan for right BKA later today. 10/07/19 Patient underwent BKA yesterday, seen in the morning, comfortable, no complaints, was working with physical therapy, RAT was called shortly afterwards for dizziness/unresponsiveness, patient evaluated at bedside, reporting mild dizziness, no other complaints. Vitals stable, fingerstick within normal limits, slightly orthostatic positive, peritoneal dialysis regimen and antihypertensives were adjusted. 10 point review of system is negative except for above PHYSICAL EXAMINATION: VITAL SIGNS: Please see below. GENERAL: No distress HEENT: Normocephalic, atraumatic, moist mucous membranes NECK: Supple CARDIOVASCULAR EXAMINATION: S1, S2, no murmurs RESPIRATORY EXAMINATION: Clear to auscultation, no wheezing ABDOMINAL EXAMINATION: Soft, nontender, nondistended, positive bowel sounds, peritoneal dialysis catheter in place, no erythema or drainage EXTREMITIES: Left upper extremity AV fistula, index finger of left hand with dry gangrene, improved coloration & warmth of the hand w/ significantly improved cap refill, status post right BKA, clean/dry/intact dressing in place NEUROLOGICAL EXAMINATION: Alert and oriented 3, no focal deficits PSYCHIATRIC EXAMINATION: Calm and cooperative LABORATORY DATA: See below. MICROBIOLOGY: Please see below. ASSESSMENT: 63-year-old male with past medical history of as his renal disease, hypertension and diabetes mellitus is admitted status post transmetatarsal am putation of the right foot. PLAN: 1. Status post right BKA Initially underwent transmetatarsal amputation of right foot secondary to dry gangrene, poor healing, underwent right BKA yesterday, continue optimal medical management for peripheral artery disease with aspirin, Plavix and statin, vascul ar surgery and podiatry following. 2. End-stage renal disease. On peritoneal dialysis, regimen adjusted by nephrology after patient reports dizziness with slightly positive orthostatic blood pressures, nephrology following. 3. Peripheral vascular disease. History of multiple angiographies/angioplasties, history of left upper extremity AV fistula, s/p banding of LUE AV fistula with significant improvement in L hand blood flow today. Continue aspirin, Plavix and statin. 4. Diabetes mellitus. Levemir 50 units twice a day along with Sliding scale insulin coverage with meals and at bedtime. Morning dose held due to low glucose. 5. Anemia. Chronic, secondary to renal failure, received PRBC transfusion yesterday. DVT prophylaxis: Heparin subcutaneous GI prophylaxis: Not needed VS, I&O, 24H, Fishbone Vital Signs/I&O Vital Signs Date Time Temp Pulse Resp B/P (MAP) Pulse Ox O2 Delivery O2 Flow Rate FiO2 10/07/19 10:55 97 Room Air 10/07/19 10:43 20 10/07/19 10:00 99.1 80 138/63 (88) 10/06/19 21:50 2.0 I&O- Last 24 Hours up to 6 AM 10/07/19 06:00 Intake Total 74288 ml Output Total 93111 ml Balance -60 ml Laboratory Data 24H LABS Laboratory Tests 2 10/06/19 16:45: Bedside Glucose (Misc Panel) 202H 10/06/19 19:57: Nucleated Red Blood Cells % (auto) 0.0, Anion Gap 10, Glomerular Filtration Rate 4.7L, Calcium Level 8.2L, Phosphorus Level 3.8, Albumin 1.8L 10/06/19 21:28: Bedside Glucose (Misc Panel) 156H 10/07/19 05:59: Anion Gap 10, Glomerular Filtration Rate 4.5L, Calcium Level 8.6L, Phosphorus Level 4.3, Albumin 1.8L, Random Vancomycin Level 24.3 10/07/19 07:04: Nucleated Red Blood Cells % (auto) 0.0 10/07/19 11:39: Bedside Glucose (Misc Panel) 127H CBC/BMP Laboratory Tests 10/06/19 19:57 10/07/19 05:59 10/07/19 07:04 SHANNAN WADSWORTH MD Oct 07, 2019 15:43
--- NOTE | 2019-10-07 16:16 | IPNPDOC ---
Date Seen The patient was seen on 10/07/19. Progress Note Patient seen and examined this morning. He was doing well and in a good mood. He seems to be feeling much better status post right below-knee amputation, now postoperative day 1. On exam the stump is clean dry and intact with minimal serosanguineous drainage. The incision was thoroughly cleaned and dressed with Xeroform gauze fluffs Kerlix and an Eladio wrap. The patient tolerated the dressing change well and so far everything looks very good. Regarding his left upper extremity, the incision and Steri-Strips are clean dry and intact and there is good signal over the cephalic vein fistula. There is a palpable radial pulse and ulnar signal, and is warm and well-perfused, and the index finger gangrene is stable and appears to be slightly improved. The finger tip is hyperemic. The patient says his hand feels much better. Our plan is to continue daily dressing changes for the right below-knee amputation stump. The patient will need a knee immobilizer to help extend the leg and prevent contractures. He will continue with physical therapy and occupational therapy as tolerated. Okay for out of bed from vascular standpoint. We will continue to follow along with the left upper extremity as he seems to have had some improvement since we banded the fistula. It will likely take several months for the fingertip to regenerate, but so far it appears to be stable and improving. The patient and his were thoroughly counseled and all questions were answered. VS, I&O, 24H, Fishbone Vital Signs/I&O Vital Signs Date Time Temp Pulse Resp B/P (MAP) Pulse Ox O2 Delivery O2 Flow Rate FiO2 10/07/19 10:55 97 Room Air 10/07/19 10:43 20 10/07/19 10:00 99.1 80 138/63 (88) 10/06/19 21:50 2.0 I&O- Last 24 Hours up to 6 AM 10/07/19 06:00 Intake Total 17835 ml Output Total 30520 ml Balance -60 ml Laboratory Data 24H LABS Laboratory Tests 2 10/06/19 16:45: Bedside Glucose (Misc Panel) 202H 10/06/19 19:57: Nucleated Red Blood Cells % (auto) 0.0, Anion Gap 10, Glomerular Filtration Rate 4.7L, Calcium Level 8.2L, Phosphorus Level 3.8, Albumin 1.8L 10/06/19 21:28: Bedside Glucose (Misc Panel) 156H 10/07/19 05:59: Anion Gap 10, Glomerular Filtration Rate 4.5L, Calcium Level 8.6L, Phosphorus Level 4.3, Albumin 1.8L, Random Vancomycin Level 24.3 10/07/19 07:04: Nucleated Red Blood Cells % (auto) 0.0 10/07/19 11:39: Bedside Glucose (Misc Panel) 127H CBC/BMP Laboratory Tests 10/06/19 19:57 10/07/19 05:59 10/07/19 07:04 ZACARIAS PATRICK MD Oct 07, 2019 16:16
--- NOTE | 2019-10-07 21:02 | IPN ---
DATE: 10/07/2019 Patient is seen and examined. He states he is feeling comfortable. He denies other significant complaints. He has had his below-knee amputation performed yesterday. ASSESSMENT: 63-year-old male with peripheral vascular disease status post below-knee amputation. PLAN: Keep left heel offloaded with pillow while in bed. He should have followup with me on discharge for further preventative care.
--- NOTE | 2019-10-07 21:06 | IPN ---
DATE: 10/07/2019 Mr. Lawson is seen this morning on his bedside. He underwent right-sided dggpq-jus-[id number] amputation yesterday due to nonhealing foot wound after a TMA. The patient is in better spirits compared to yesterday when I saw him prior to surgery. He does report some phantom pain. His peritoneal dialysis is functioning very well and denies any nausea, vomiting, dyspnea or chest pain. PHYSICAL EXAMINATION: Temperature 99.1 degrees Fahrenheit, heart rate 80 per minute and respiratory rate 20 per minute. Blood pressure 138/63 mmHg and oxygen saturation 97% on room air. Head is atraumatic. Neck supple and JVD difficult to be assessed. Heart sounds are regular and lungs with good bilateral air entry. Abdomen soft, distended with peritoneal solution and nontender. Peritoneal dialysis catheter is intact without any signs of infection. Extremities without any cyanosis or clubbing. Left arm AV fistula is patent and left index finger has gangrenous changes. He has a right yfjit-ljf-vruh amputation with stump covered with dressing. Neurologically he is at his baseline mentation. Today's labs show WBC count 20.4, hemoglobin 9.5 and hematocrit 29.5. Sodium 135, potassium 3.7, CO2 26, BUN 79 and creatinine 12.1. Calcium 8.4 and phosphorus 4.3. PROBLEMS: 1. End-stage renal disease. The patient remains on peritoneal dialysis and we will continue with current prescription. His volume status is reasonably well-compensated. 2. Hypokalemia, potassium level has improved and renal function and electrolytes will be monitored on a daily basis. The patient should continue with regular diet. 3. Anemia. He did have anemia related to foot infection, multiple procedures and end-stage renal disease. He was transfused yesterday with 1 unit of packed RBCs and anemia has improved now. We will continue with Aranesp once a week. 4. Peripheral vascular disease, status post right htdmt-yur-xyjt amputation. The patient had a TMA initially however, his foot stump was not in good shape due to which an urgent decision was made for BKA yesterday which he has already got done. He is in better spirits today.
[2019-10-07] MEDS: SIMVASTATIN 40 MG TAB PO SCH (21:09)
[2019-10-08 02:00] VITALS: BP 148/62
[2019-10-08 06:00] VITALS: BP 131/62
[2019-10-08] MEDS ORDERED: HEPARIN SOD (PORCINE) 5000 UNITS/ML VIAL (J1644 PER 1000UNITS) PD ONE (06:15)
[2019-10-08] MEDS: SUCROFERRIC OXYHYDROXIDE 500MG CHEW TAB (VELPHORO) PO SCH ×3 (07:26→17:44)
[2019-10-08] MEDS: HumaLOG INSULIN (NovoLOG) PER UNIT SC SCH ×4 (07:30→21:00)
--- NOTE | 2019-10-08 07:52 | IPNPDOC ---
Date Seen The patient was seen on 10/08/19. Progress Note Patient seen and examined this morning. He was doing well and in a good mood. He seems to be feeling much better POD #2 status post right below-knee amputation. He says his appetite and energy has improved significantly. On exam the stump is clean dry and intact with minimal serosanguineous drainage. The incision was thoroughly cleaned and dressed with Xeroform gauze fluffs Kerlix and an Eladio wrap. The patient tolerated the dressing change well and so far everything looks very good. The posterior flap is warm and pink with good capillary refill and the skin edges all appear viable. Regarding his left upper extremity, the incision and Steri-Strips are clean dry and intact and there is good signal over the cephalic vein fistula. There is a palpable radial pulse and ulnar signal, and is warm and well-perfused, and the index finger gangrene is stable and appears to be somewhat improved with new scan regenerating proximal to distal. I removed loose skin around the finger and underneath was new healthy skin. I did not appreciate the gangrene as I feel this will auto debridement on its own as the skin regenerates. I would avoid aggressive debridements to the finger. The finger tip is hyperemic. The patient says his hand feels much better. Our plan is to continue daily dressing changes for the right below-knee amputation stump. The patient will need a knee immobilizer to help extend the leg and prevent contractures. He will continue with physical therapy and occupational therapy as tolerated. Okay for out of bed from vascular standpoint. We will continue to follow along with the left upper extremity as he seems to have had some improvement since we banded the fistula. It will likely take several months for the fingertip to regenerate, but so far it appears to be stable and improving. The patient and his were thoroughly counseled and all questions were answered. VS, I&O, 24H, Fishbone Vital Signs/I&O Vital Signs Date Time Temp Pulse Resp B/P (MAP) Pulse Ox O2 Delivery O2 Flow Rate FiO2 10/08/19 02:00 99.5 86 16 148/62 (90) 99 Room Air 10/06/19 21:50 2.0 I&O- Last 24 Hours up to 6 AM 10/08/19 06:00 Intake Total 59784 ml Output Total 83191 ml Balance 300 ml Laboratory Data 24H LABS Laboratory Tests 2 10/07/19 11:39: Bedside Glucose (Misc Panel) 127H 10/07/19 17:09: Bedside Glucose (Misc Panel) 245H 10/07/19 20:14: Bedside Glucose (Misc Panel) 226H 10/08/19 07:21: Bedside Glucose (Misc Panel) 172H 10/08/19 07:29: ZACARIAS PATRICK MD Oct 08, 2019 07:52
--- NOTE | 2019-10-08 08:08 | PHACANCOPD ---
PHARMACY VANCOMYCIN DOSING Pt Demographics Demographics Patient Age:63 , Weight:100.900 , Gender: male Adjusted Body Weight Date: 10/06/19, Adjusted Body Weight: Kg Events Past 24 Hours Events Past 24 Hours: YES: Elevation in WBC Vancomycin Vancomycin indication: wet gangrene Vancomycin Target Ranges: 15-20 mcg/ml Vancomycin Load Y/N: Yes Load Dose Date Time Vancomycin Load Dose: 2g Date: 10/06 Time: ~11am Vancomycin Dose Date: 10/07/19. Current Vancomycin Dose: Intermittent Dosing?: Yes Labs Creatinine Clearance Date:10/06/19. Creatinine Clearance: . Pending Labs Random vancomycin level scheduled 10/07 in AM Assessment and Plan Maintaining Current Dose?: No Reason for dose change: Trough too high Pharmacist Note Pharmacist Note Date: 10/08/19 .Pharmacist note. Random vancomycin level this morning resulted at 22.6. We'll hold dose again today and draw another random level tomorrow morning. Pharmacy will continue to monitor and make adjustments as needed. Date: 10/07/19. Pharmacist note: Random vancomycin level this morning resulted at 24.3. We'll hold dose for today and draw another random level tomorrow morning. Pharmacy will continue to monitor and make adjustments as needed. Date: 10/06/19. Pharmacist note: pt has been started on vancomycin for wet gangrene of his R foot, planned for R transmetatarsal amputation. He has not been on vancomycin here before. Past wound cultures for that foot have grown Enterobacter, E. faecalis and Staph coag neg. No cultures pending for this admission. I have started him on vancomycin 2g today with a random level scheduled for tomorrow morning ~18 hours later. I have tentatively started him on Vancomycin 750mg IV q24h to begin tomorrow. We will follow up with the level in the morning and make adjustments as necessary. NICOL OLSON [facility] Oct 08, 2019 08:08
[2019-10-08] MEDS: prednisoLONE ACET 1% OPHTH SUSP 5ML OS SCH ×2 (10:37→22:15)
[2019-10-08] MEDS: BRINZOLAMIDE 1 % OPHTH SUSP (AZOPT) 10ML OS SCH ×2 (10:37→22:14)
[2019-10-08] MEDS: MIRALAX *UNIT DOSE* 17GM PACKET PO SCH (10:37)
[2019-10-08] MEDS: ATROPINE SULFATE 1% OP SOLN 2 ML BTL OS SCH (10:37)
[2019-10-08] MEDS: DOCUSATE SODIUM 100 MG CAP PO SCH ×2 (10:38→22:15)
[2019-10-08] MEDS: ASPIRIN 81 MG ENTERIC TAB PO SCH (10:38)
[2019-10-08] MEDS: HEPARIN SOD (PORCINE) 5000 UNITS/ML VIAL (J1644 PER 1000UNITS) SQ SCH ×2 (10:40→22:14)
[2019-10-08] MEDS: LEVEMIR (INSULIN DETEMIR) 1 UNITS/0.01ML SC SCH (10:48)
[2019-10-08] MEDS: NORCO, ANEXSIA 5/325MG TABLET (HYDROcodone/ACETAMINOPHEN) PO PRN (13:00)
[2019-10-08 14:00] VITALS: BP 151/50
--- NOTE | 2019-10-08 14:34 | IPN ---
DATE OF VISIT: 10/08/2019 Mr. Lawson is seen this morning on his bedside. Peritoneal dialysis exchange is in progress and he is draining clear fluid. I was called last night by nursing staff to report a lot of fibrin in the PD fluid and we added heparin 1000 units to the bag. The patient denies any nausea or vomiting. He sat up this morning for breakfast and did not feel dizzy. We have changed peritoneal dialysis solution to 1.5% since yesterday due to feeling dizzy and lightheaded. The patient has no dyspnea or chest pain at present. PHYSICAL EXAMINATION: Temperature 98.7 degrees Fahrenheit, heart rate 82 per minute and respiratory rate 16 per minute. Blood pressure 131/62 mmHg and oxygen saturation 96% on room air. Head is atraumatic. Neck supple and without JVD or thyroid enlargement. Heart sounds regular and lungs clear to auscultation. Abdomen soft and nontender and bowel sounds are present. Peritoneal dialysis catheter is intact. Extremities have no cyanosis or clubbing. His left index finger has some dry gangrenous changes and left arm AV fistula is patent. Right leg stump following rcici-ixn-iiqh amputation is in the dressing. His random vancomycin level this morning is 22.6 and did not have any other labs today. PROBLEMS: 1. End-stage renal disease. The patient continues with peritoneal dialysis five exchanges per day. We are now using 1.5% solution due to feeling dizzy and low blood pressures yesterday. At present his volume status is very well compensated. 2. Anemia. He did have a transfusion following his hdcgi-dbq-xcea amputation and yesterday his hemoglobin was 9.5. Will continue with Aranesp once a week and monitor his CBC periodically. 3. Hypertension. Blood pressure is very well controlled and medications have been adjusted. No changes are being made today. 4. Peripheral vascular disease, status post right cjwyz-oki-prcw amputation. The patient is feeling well following surgery and in good spirits. He is looking forward to getting rehab.
[2019-10-08 18:00] VITALS: BP 151/84
--- NOTE | 2019-10-08 20:26 | IPNPDOC ---
Date Seen The patient was seen on 10/08/19. Progress Note HISTORY OF PRESENT ILLNESS: 63-year-old male with past medical history of end- stage renal disease on peritoneal dialysis, hypertension, diabetes mellitus is being admitted status post transmetatarsal amputation of the right foot. Patient has had dry gangrene in the left foot for the past few weeks, underwent amputation of 2 toes with poor wound healing, also underwent multiple angioplasties in the leg without much success with eventual plan for transmetatarsal amputation today. Patient is seen on the floor, resting comfortably in bed, without any complaints at this time. He reports the pain is well-controlled, tolerating diet. He denies any shortness of breath, nausea, vomiting, chest pain, abdominal pain or diarrhea. 10/03/19 Patient seen in the morning, resting comfortably in bed, no acute events overnight, no complaints at this time. He denies any shortness of breath, chest pain, nausea, vomiting, abdominal pain or diarrhea. 10/04/19 Patient seen in the morning, no acute events overnight, scheduled for banding of LUE AV fistula later today, no complaints at this time. He denies any SOB, CP, N/V/D or abdominal pain. 10/05/19 Patient comfortable in bed, without complaints, reports improvement in L hand function & warmth after surgery yesterday, no complaints at this time. 10/06/19 Patient seen in the morning, without complaints, has what gangrene at the site of metatarsal amputation, evaluated by rescue surgery, plan for right BKA later today. 10/07/19 Patient underwent BKA yesterday, seen in the morning, comfortable, no complaints , was working with physical therapy, RAT was called shortly afterwards for dizziness/unresponsiveness, patient evaluated at bedside, reporting mild dizziness, no other complaints. Vitals stable, fingerstick within normal limits, slightly orthostatic positive, peritoneal dialysis regimen and antihypertensives were adjusted. 10/08/19 Comfortable in bed, without complaints, no acute events overnight, no longer feeling dizzy, awaiting ARU eval. 10 point review of system is negative except for above PHYSICAL EXAMINATION: VITAL SIGNS: Please see below. GENERAL: No distress HEENT: Normocephalic, atraumatic, moist mucous membranes NECK: Supple CARDIOVASCULAR EXAMINATION: S1, S2, no murmurs RESPIRATORY EXAMINATION: Clear to auscultation, no wheezing ABDOMINAL EXAMINATION: Soft, nontender, nondistended, positive bowel sounds, peritoneal dialysis catheter in place, no erythema or drainage EXTREMITIES: Left upper extremity AV fistula, index finger of left hand with dry gangrene, improved coloration & warmth of the hand w/ significantly improved cap refill, status post right BKA, clean/dry/intact dressing in place NEUROLOGICAL EXAMINATION: Alert and oriented 3, no focal deficits PSYCHIATRIC EXAMINATION: Calm and cooperative LABORATORY DATA: See below. MICROBIOLOGY: Please see below. ASSESSMENT: 63-year-old male with past medical history of as his renal disease, hypertension and diabetes mellitus is admitted status post transmetatarsal amputation of the right foot. PLAN: 1. Status post right BKA Initially underwent transmetatarsal amputation of right foot secondary to dry gangrene, poor healing, underwent right BKA, vascular surgery and podiatry following. 2. End-stage renal disease. On peritoneal dialysis, Aranesp, nephrology following. 3. Peripheral vascular disease. History of multiple angiographies/angioplasties, history of left upper extremity AV fistula, s/p banding of LUE AV fistula with significant improvement in L hand blood flow today. Continue aspirin and statin. Plavix being held due to BKA. 4. Diabetes mellitus. Levemir 45 units twice a day along with Sliding scale insulin coverage with meals and at bedtime. 5. Anemia. Chronic, secondary to renal failure, received 1 unit of PRBC prior to BKA, on Aranesp. DVT prophylaxis: Heparin subcutaneous GI prophylaxis: Not needed VS, I&O, 24H, Fishbone Vital Signs/I&O Vital Signs Date Time Temp Pulse Resp B/P (MAP) Pulse Ox O2 Delivery O2 Flow Rate FiO2 10/08/19 18:00 99.2 79 16 151/84 (106) 94 Room Air 10/06/19 21:50 2.0 I&O- Last 24 Hours up to 6 AM 10/08/19 05:59 Intake Total 79007 ml Output Total 96023 ml Balance -225 ml Laboratory Data 24H LABS Laboratory Tests 2 10/08/19 07:21: Bedside Glucose (Misc Panel) 172H 10/08/19 07:29: Random Vancomycin Level 22.6 10/08/19 10:44: Bedside Glucose (Misc Panel) 247H 10/08/19 12:10: Bedside Glucose (Misc Panel) 266H 10/08/19 16:53: Bedside Glucose (Misc Panel) 156H SHANNAN WADSWORTH MD Oct 08, 2019 20:26
[2019-10-08] MEDS ORDERED: LEVEMIR (INSULIN DETEMIR) 1 UNITS/0.01ML SC SCH (21:00)
[2019-10-08 22:00] VITALS: BP 149/84
[2019-10-08] MEDS: SIMVASTATIN 40 MG TAB PO SCH (22:16)
[2019-10-09 05:15] VITALS: BP 160/86
[2019-10-09 05:36] VITALS: BP 142/67
[2019-10-09 05:48] VITALS: BP 133/59
[2019-10-09 05:52] LABS: HEMATOCRIT 27.4 % (42.0-52.0); HEMOGLOBIN 8.8 g/dl (13.5-17.5); MEAN CORPUSCULAR HEMOGLOBIN 31.7 pg (27.0-33.0); MEAN CORPUSCULAR HGB CONC 32.1 g/dl (32.0-36.5); MEAN CORPUSCULAR VOLUME 98.6 fl (80.0-96.0); PLATELET COUNT, AUTOMATED 373 10^3/uL (150-450); RED BLOOD COUNT 2.78 10^6/uL (4.30-6.10); WHITE BLOOD COUNT 26.7 10^3/uL (4.0-10.0)
--- NOTE | 2019-10-09 05:52 | IPNPDOC ---
Text Note Date of Service The patient was seen on 10/09/19. NOTE Rapid assessment was called bc the pt's glucose was in the 29 and he was altered. T97.7 / HR 81 / R18 / BP 133/59 / O2 95% gen: lethargic heent: ncat cvs: rrr/nmrg lungs: ctab on ra #hypoglycemia repeat glucose was 140 after 1 amp of D50 & his mental status improved plan: accuchecks q1H for 4H / frequent neuro Q2 checks / f/u am labs / dc all insulin for 24H VS,Fishbone, I+O VS, Fishbone, I+O Vital Signs Date Time Temp Pulse Resp B/P (MAP) Pulse Ox O2 Delivery O2 Flow Rate FiO2 10/08/19 22:00 99.3 82 17 149/84 (105) 94 Room Air 10/06/19 21:50 2.0 I&O- Last 24 Hours up to 6 AM 10/09/19 06:00 Intake Total 9240 ml Output Total 9200 ml Balance 40 ml SILVIA GUTIERREZ MD Oct 09, 2019 05:52
[2019-10-09] MEDS ORDERED: DEXTROSE 50% 50 ML SYRINGE IV STA (05:57)
[2019-10-09] MEDS ORDERED: HEPARIN SOD (PORCINE) 5000 UNITS/ML VIAL (J1644 PER 1000UNITS) PD ONE (06:00)
[2019-10-09 06:01] LABS: INR 1.27; PROTHROMBIN TIME 15.6 SECONDS (11.8-14.0)
[2019-10-09 06:20] LABS: CALCIUM LEVEL 8.5 MG/DL (8.8-10.2); CREATININE FOR GFR 11.6 MG/DL (0.70-1.30); GLOMERULAR FILTRATION RATE 4.7 (>49); MAGNESIUM LEVEL 2.1 MG/DL (1.8-2.4); POTASSIUM SERUM 3.1 MEQ/L (3.5-5.1)
[2019-10-09 07:22] LABS: INFLUENZA A AMPLIFICATION NEGATIVE (NEGATIVE); INFLUENZA B AMPLIFICATION NEGATIVE (NEGATIVE)
[2019-10-09] MEDS: MIRALAX *UNIT DOSE* 17GM PACKET PO SCH (07:53)
[2019-10-09] MEDS: HEPARIN SOD (PORCINE) 5000 UNITS/ML VIAL (J1644 PER 1000UNITS) SQ SCH ×2 (07:53→22:09)
[2019-10-09] MEDS: POTASSIUM CHLORIDE 10 MEQ SR TABLET PO SCH ×2 (07:54→22:08)
[2019-10-09] MEDS: SUCROFERRIC OXYHYDROXIDE 500MG CHEW TAB (VELPHORO) PO SCH ×3 (07:54→17:43)
[2019-10-09] MEDS: DOCUSATE SODIUM 100 MG CAP PO SCH ×2 (07:54→22:09)
[2019-10-09] MEDS: ASPIRIN 81 MG ENTERIC TAB PO SCH (07:54)
[2019-10-09] MEDS: BRINZOLAMIDE 1 % OPHTH SUSP (AZOPT) 10ML OS SCH ×2 (07:55→22:10)
[2019-10-09] MEDS: prednisoLONE ACET 1% OPHTH SUSP 5ML OS SCH ×2 (07:55→22:09)
[2019-10-09] MEDS: ATROPINE SULFATE 1% OP SOLN 2 ML BTL OS SCH (07:55)
[2019-10-09] MEDS ORDERED: PIPERACILLIN/TAZOBACTAM SOD 2.25 GM in D5W MINI-BAG PLUS 50 ML IV SCH (08:00)
--- NOTE | 2019-10-09 08:42 | IPNPDOC ---
Text Note Date of Service The patient was seen on 10/09/19. NOTE Vascular surgery. Dr. Andrew Patient seen and examined this morning. POD #3 status post right below-knee amputation. A RAT was called this morning at approximately 5:30 AM related to altered mental status, the patient's blood sugar was noted to be 29. The patient was given 1 amp of D50 with blood sugar increasing to 140. The patient was also noted to have increasing leukocytosis therefore chest x- ray, UA, blood cultures and influenza screening was requested. On exam the stump is clean dry and intact with minimal serosanguineous drainage. The incision was thoroughly cleaned and dressed with Xeroform gauze, fluffs, Kerlix, and an Eladio wrap. The patient tolerated the dressing change well and wound continues to look good, no signs of infection. No erythema, good capillary refill and the skin edges all appear viable. Regarding his left upper extremity, Steri-Strips are clean dry and intact and there is a thrill fistula. The left hand is warm and well-perfused, and the index finger gangrene is stable and appears to be somewhat improved. Our plan is to continue daily dressing changes for the right below-knee amputation stump. The patient will need a knee immobilizer to help extend the leg and prevent contractures. He will continue with physical therapy and occupational therapy as tolerated. Okay for out of bed from vascular standpoint. We will continue to follow along with the left upper extremity as he seems to have had some improvement since the fistula was banded. The fingertip appears to be stable and improving. Continue to hold Plavix for today, consider restarting in the morning. Related to nursing UA will likely need to be obtained straight cath as the patient does not make much urine. Continue to follow. VS,Fishbone, I+O VS, Fishbone, I+O Laboratory Tests 10/09/19 05:40 Vital Signs Date Time Temp Pulse Resp B/P (MAP) Pulse Ox O2 Delivery O2 Flow Rate FiO2 10/09/19 07:54 81 133/59 10/09/19 05:48 97.7 18 95 Room Air 10/06/19 21:50 2.0 I&O- Last 24 Hours up to 6 AM 10/09/19 06:00 Intake Total 84588 ml Output Total 28508 ml Balance 940 ml Dulce Espinal Oct 09, 2019 08:42
--- NOTE | 2019-10-09 09:19 | REP ---
Portable chest, 07:13 a.m., single AP view with the patient semi upright: Comparison is 10/07/2017. There is chronic cardiomegaly, unchanged. The lung schilling are clear. The amy, mediastinum, skeletal structures are unremarkable. Impression: Chronic cardiomegaly. No acute cardiopulmonary findings. Electronically Signed by Herrera Hilton MD 10/09/2019 09:11 A
[2019-10-09] MEDS ORDERED: SENNA 8.6 MG TAB (SENOKOT) PO ONE (11:00)
[2019-10-09 14:00] VITALS: BP 170/65
[2019-10-09 14:46] LABS: AMORPHOUS SEDIMENT SMALL (NEGATIVE); APPEARANCE, URINE CLOUDY (CLEAR); BACTERIA, URINE AUTO NEGATIVE (NEGATIVE); BILIRUBIN, URINE AUTO NEGATIVE (NEGATIVE); BLOOD, URINE BLOOD 1+ (NEGATIVE); COLOR, URINE YELLOW (YELLOW); GLUCOSE, URINE (UA) AUTO 3+ mg/dL (NEGATIVE); KETONE, URINE AUTO NEGATIVE (NEGATIVE); LEUKOCYTE ESTERASE, URINE AUTO TRACE (NEGATIVE); MUCUS, URINE SMALL (NEGATIVE); NITRITE, URINE AUTO NEGATIVE (NEGATIVE); PROTEIN, URINE AUTO 3+ mg/dL (NEGATIVE); RBC, URINE AUTO 3 /HPF (0-3); SPECIFIC GRAVITY URINE AUTO 1.015 (1.002-1.035); SQUAMOUS EPITHELIAL CELL UR AU 0 /HPF (0-6); UROBILINOGEN, URINE AUTO 0.2 mg/dL (0.0-2.0); WBC, URINE AUTO 7 /HPF (0-3)
--- NOTE | 2019-10-09 14:47 | IPN ---
DATE: 10/09/2019 Mr. Lawson is seen this morning on his bedside. Peritoneal dialysis exchange is in progress, which is draining clear fluid. The patient reports constipation and no bowel movement for several days. He denies any nausea, vomiting, dyspnea, chest pain, fever or chills. PHYSICAL EXAMINATION Temperature 97.7 degrees Fahrenheit, heart rate 80 per minute and respiratory rate 18 per minute. Blood pressure 133/59 mmHg and oxygen saturation 95% on room air. Head is atraumatic. Neck is supple and without jugular venous distention (JVD) or thyroid enlargement. Heart sounds are regular and lungs with slightly diminished breath sounds at bases. Abdomen is soft and filled with peritoneal solution. The peritoneal catheter is in place. Extremities have no cyanosis or clubbing. He has right bnxhn-ewi-[id number] amputation and stump is in the dressing. Neurologically, he is awake, alert and at his baseline mentation. Today's labs show WBC count 26.7, hemoglobin 8.8 and hematocrit 27.4. Platelets 373. Sodium 137, potassium 3.1, BUN 80 and creatinine of 11.6. Calcium level is 8.5 and magnesium 2.1. PROBLEMS: 1. End-stage renal disease. The patient will continue with peritoneal dialysis five exchanges per day with 2 liter bath. He seems to be very well dialyzed. 2. Hypokalemia. This is nutritional and we will replace with potassium supplement 10 mEq twice a day. Electrolytes will be checked again tomorrow morning. 3. Constipation. The patient is receiving stool softener and MiraLAX; however, this does not seem to be working. We will also give him one dose of Senokot two tablets today and see how he responds. 4. Anemia. His anemia again did get worse. At present, we will continue to monitor and he will receive Aranesp once a week 200 mcg, which will be continued.
--- NOTE | 2019-10-09 16:05 | IPNPDOC ---
Date Seen The patient was seen on 10/09/19. Progress Note HISTORY OF PRESENT ILLNESS: 63-year-old male with past medical history of end- stage renal disease on peritoneal dialysis, hypertension, diabetes mellitus is being admitted status post transmetatarsal amputation of the right foot. Patient has had dry gangrene in the left foot for the past few weeks, underwent amputation of 2 toes with poor wound healing, also underwent multiple angioplasties in the leg without much success with eventual transmetatarsal amputation during this hospitalization. Patient had poor wound healing post transmetatarsal amputation, underwent right BKA. 10/09/19 Patient hypoglycemic in the morning, received 45 units of Levemir last night, received 1 amp of D50 with subsequent improvement and hypoglycemia. Patient seen in the morning, comfortable in bed, without any complaints, awaiting placement. 10 point review of system is negative except for above PHYSICAL EXAMINATION: VITAL SIGNS: Please see below. GENERAL: No distress HEENT: Normocephalic, atraumatic, moist mucous membranes NECK: Supple CARDIOVASCULAR EXAMINATION: S1, S2, no murmurs RESPIRATORY EXAMINATION: Clear to auscultation, no wheezing ABDOMINAL EXAMINATION: Soft, nontender, nondistended, positive bowel sounds, peritoneal dialysis catheter in place, no erythema or drainage EXTREMITIES: Left upper extremity AV fistula, index finger of left hand with dry gangrene, improved coloration & warmth of the hand w/ significantly improved cap refill, status post right BKA, clean/dry/intact dressing in place NEUROLOGICAL EXAMINATION: Alert and oriented 3, no focal deficits PSYCHIATRIC EXAMINATION: Calm and cooperative LABORATORY DATA: See below. MICROBIOLOGY: Please see below. ASSESSMENT: 63-year-old male with past medical history of as his renal disease, hypertension and diabetes mellitus is admitted status post transmetatarsal amputation of the right foot. PLAN: 1. Status post right BKA Initially underwent transmetatarsal amputation of right foot secondary to dry gangrene, poor healing, underwent right BKA, vascular surgery and podiatry following. 2. End-stage renal disease. On peritoneal dialysis, Aranesp, nephrology following. 3. Peripheral vascular disease. History of multiple angiographies/angioplasties, history of left upper extremity AV fistula, s/p banding of LUE AV fistula with significant improvement in L hand blood flow today. Continue aspirin and statin. Plavix being held due to BKA. 4. Diabetes mellitus. Hypoglycemic in the morning due to receiving a high dose of Levemir last night, change Levemir to 25 units at bedtime, sliding scale insulin coverage with meals and at bedtime. 5. Anemia. Chronic, secondary to renal failure, received 1 unit of PRBC prior to BKA, on Aranesp. DVT prophylaxis: Heparin subcutaneous GI prophylaxis: Not needed VS, I&O, 24H, Fishbone Vital Signs/I&O Vital Signs Date Time Temp Pulse Resp B/P (MAP) Pulse Ox O2 Delivery O2 Flow Rate FiO2 10/09/19 14:00 97.5 83 16 170/65 (100) 93 Room Air 10/06/19 21:50 2.0 I&O- Last 24 Hours up to 6 AM 10/09/19 06:00 Intake Total 74225 ml Output Total 00397 ml Balance 940 ml Laboratory Data 24H LABS Laboratory Tests 2 10/08/19 16:53: Bedside Glucose (Misc Panel) 156H 10/08/19 20:58: Bedside Glucose (Misc Panel) 119H 10/09/19 05:19: Bedside Glucose (Misc Panel) 31*L 10/09/19 05:31: Prothrombin Time 15.6H, Prothromb Time International Ratio 1.27, Lactic Acid Level 0.8 10/09/19 05:37: Bedside Glucose (Misc Panel) 29*L 10/09/19 05:40: Nucleated Red Blood Cells % (auto) 0.0, Bedside Glucose Confirm (Misc) 47, Anion Gap 12, Glomerular Filtration Rate 4.7L, Calcium Level 8.5L, Magnesium Level 2.1 10/09/19 05:44: Bedside Glucose (Misc Panel) 140H 10/09/19 06:36: Bedside Glucose (Misc Panel) 164H 10/09/19 06:39: Influenza Type A (RT-PCR) NEGATIVE, Influenza Type B (RT-PCR) NEGATIVE, Respiratory Syncytial Virus (RT-PCR NEGATIVE 10/09/19 07:52: Bedside Glucose (Misc Panel) 187H 10/09/19 08:48: Bedside Glucose (Misc Panel) 189H 10/09/19 09:42: Bedside Glucose (Misc Panel) 185H 10/09/19 11:36: Bedside Glucose (Misc Panel) 206H 10/09/19 14:24: Urine Color YELLOW, Urine Appearance CLOUDYH, Urine pH 5.0, Urine Specific [place] 1.015, Urine Protein 3+H, Urine Glucose (Auto)(UA) 3+H, Urine Ketones (Auto) NEGATIVE, Urine Blood 1+H, Urine Nitrite NEGATIVE, Urine Bilirubin NEGATIVE, Urine Urobilinogen 0.2, Urine Leukocyte Esterase (Auto) TRACEH, Urine WBC (Auto) 7H, Urine RBC (Auto) 3, Urine Hyaline Casts (Auto) 0, Urine Bacteria (Auto) NEGATIVE, Urine Squamous Epithelial Cells 0, Urine Amorphous Sediment (Auto) SMALLH, Urine Mucus (Auto) SMALL, Urine Sperm (Auto) CBC/BMP Laboratory Tests 10/09/19 05:40 Microbiology Microbiology 10/09/19 Blood Culture, Received Pending SHANNAN WADSWORTH MD Oct 09, 2019 16:05
[2019-10-09] MEDS: HumaLOG INSULIN (NovoLOG) PER UNIT SC SCH ×2 (17:43→21:00)
[2019-10-09 22:00] VITALS: BP 157/75
[2019-10-09] MEDS: SIMVASTATIN 40 MG TAB PO SCH (22:09)
[2019-10-09] MEDS: LEVEMIR (INSULIN DETEMIR) 1 UNITS/0.01ML SC SCH (22:10)
[2019-10-10 06:00] VITALS: BP 158/71
[2019-10-10 06:13] LABS: HEMATOCRIT 24.5 % (42.0-52.0); HEMOGLOBIN 7.8 g/dl (13.5-17.5); MEAN CORPUSCULAR HEMOGLOBIN 31.7 pg (27.0-33.0); MEAN CORPUSCULAR HGB CONC 31.8 g/dl (32.0-36.5); MEAN CORPUSCULAR VOLUME 99.6 fl (80.0-96.0); PLATELET COUNT, AUTOMATED 324 10^3/uL (150-450); RED BLOOD COUNT 2.46 10^6/uL (4.30-6.10); WHITE BLOOD COUNT 19.5 10^3/uL (4.0-10.0)
[2019-10-10 06:29] LABS: CALCIUM LEVEL 8.8 MG/DL (8.8-10.2); CREATININE FOR GFR 11.2 MG/DL (0.70-1.30); GLOMERULAR FILTRATION RATE 4.9 (>49); POTASSIUM SERUM 4.1 MEQ/L (3.5-5.1)
[2019-10-10] MEDS: SUCROFERRIC OXYHYDROXIDE 500MG CHEW TAB (VELPHORO) PO SCH ×3 (07:45→17:58)
[2019-10-10] MEDS: MIRALAX *UNIT DOSE* 17GM PACKET PO SCH (07:45)
[2019-10-10] MEDS: DOCUSATE SODIUM 100 MG CAP PO SCH ×2 (07:46→20:23)
[2019-10-10] MEDS: HEPARIN SOD (PORCINE) 5000 UNITS/ML VIAL (J1644 PER 1000UNITS) SQ SCH ×2 (07:51→21:10)
[2019-10-10] MEDS: POTASSIUM CHLORIDE 10 MEQ SR TABLET PO SCH ×2 (07:51→21:10)
[2019-10-10] MEDS: ASPIRIN 81 MG ENTERIC TAB PO SCH (07:51)
[2019-10-10] MEDS: prednisoLONE ACET 1% OPHTH SUSP 5ML OS SCH ×2 (07:52→21:11)
[2019-10-10] MEDS: HumaLOG INSULIN (NovoLOG) PER UNIT SC SCH ×4 (07:52→21:11)
[2019-10-10] MEDS: BRINZOLAMIDE 1 % OPHTH SUSP (AZOPT) 10ML OS SCH ×2 (07:52→21:10)
[2019-10-10] MEDS: ATROPINE SULFATE 1% OP SOLN 2 ML BTL OS SCH (07:52)
--- NOTE | 2019-10-10 12:26 | IPNPDOC ---
Text Note Date of Service The patient was seen on 10/10/19. NOTE Vascular surgery. Dr. Andrew Patient seen and examined this morning. POD #4 status post right below-knee amputation. On exam the stump is clean dry and intact with can edges pink and healthy, ghislaine are intact, no significant edema, no significant drainage. The posterior flap appears healthy and viable. The incision was thoroughly cleaned and dressed with Xeroform gauze, fluffs, Kerlix, and an Eladio wrap. The patient tolerated the dressing change well. Regarding his left upper extremity, there is a thrill palpable. The left hand is warm and well-perfused, and the index finger gangrene is stable and appears to be somewhat improved. The patient's fistula was examined with ultrasound and was marked with a skin marking pen to facilitate access for hemodialysis,as per Dr. Andrew. The venous large, superficial, primarily very straight, with good flows on ultrasound. Our plan is to continue daily dressing changes for the right below-knee amputation stump. The patient will need a knee immobilizer to help extend the leg and prevent contractures. He will continue with physical therapy and occupational therapy as tolerated. Okay for out of bed from vascular standpoint. He seems to have had some improvement since the fistula was banded. The finger tip appears to be stable and improving. The patient's fistula is examined as per Dr. Andrew, skin marking is applied so that this can be accessed for hemodialysis. This was reviewed with Dr. Quinteros as well as per Dr. Andrew. Plan to restart Plavix today. Continue to follow. VS,Rlbone, I+O VS, Fishbone, I+O Laboratory Tests 10/10/19 05:48 Vital Signs Date Time Temp Pulse Resp B/P (MAP) Pulse Ox O2 Delivery O2 Flow Rate FiO2 10/10/19 07:51 89 152/62 10/10/19 06:00 99.1 18 95 Room Air 10/06/19 21:50 2.0 I&O- Last 24 Hours up to 6 AM 10/10/19 06:00 Intake Total 65641 ml Output Total 00081 ml Balance -1150 ml Dulce Espinal Oct 10, 2019 12:26
[2019-10-10] MEDS: CLOPIDOGREL 75 MG TAB PO SCH (12:40)
--- NOTE | 2019-10-10 13:40 | IPN ---
DATE: 10/10/2019 Mr. Lawson is seen this morning on his bedside. He is sitting in the chair today and his is present in the room. The patient is in good spirits today and feels well. He is going to require acute rehab and acute rehab service here at [facility] will not take him with peritoneal dialysis as they do not have trained nurses to perform peritoneal dialysis. The patient's family does not wish to go out of the area for rehab. They have requested to switch him to hemodialysis temporarily. In the meantime, the patient denies any nausea, vomiting, fever or chills. He reports a good bowel movement this morning. PHYSICAL EXAMINATION: Temperature 99 degrees Fahrenheit, heart rate 88 per minute and respiratory rate 18 per minute. Blood pressure 152/62 mmHg and oxygen saturation 95% on room air. Head is atraumatic. Neck: Supple and without jugular venous distention (JVD) sitting upright. Heart sounds are regular and lungs clear to auscultation. Abdomen is protuberant, soft and nontender. Peritoneal dialysis catheter is intact. Extremities have no cyanosis or clubbing. His left arm AV fistula is patent, but weak. He had right zeisu-jbu-dlof amputation and stump is covered with dressing. Neurologically he is awake and alert and without a focal deficit. LABS: Today's labs show WBC count 19.5, hemoglobin 7.8 and hematocrit 24.5. Platelets 324. Sodium is 131, potassium 4.1, CO2 30, BUN 78 and creatinine 11.2. Glucose 224 and calcium 8.8. PROBLEMS: 1. End-stage renal disease. The patient continues with peritoneal dialysis, five exchanges per day. He is asking about switching to hemodialysis in order for him to go to acute rehab and I have discussed with Dr. Andrew and it will be perfectly alright. We will try to use his fistula as Dr. Andrew feels that fistula can be accessed and if it did not work, then he will get a Perma-Cath placed. Once he gets done with rehab then he can switch back to peritoneal dialysis. 2. Anemia. He has blood loss anemia and will be given one more unit of packed RBCs today. 3. Hyponatremia, mild hyponatremia related to end-stage renal disease and likely to improve with dialysis. No other intervention will be needed. 4. Hypertension. Blood pressure has been slightly on the high side and I am going to wait and watch with the same medications. We will consider to switch his dialysis to 2.5% solution if any evidence of hypervolemia noticed. ALEXEI
[2019-10-10 14:00] VITALS: BP 167/77
[2019-10-10] MEDS ORDERED: LIDOCAINE 1% MDV 20ML VIAL As Ordered ONE (15:40)
[2019-10-10 18:04] VITALS: BP 140/84
[2019-10-10 18:20] VITALS: BP 140/72
--- NOTE | 2019-10-10 20:18 | IPNPDOC ---
Date Seen The patient was seen on 10/10/19. Progress Note HISTORY OF PRESENT ILLNESS: 63-year-old male with past medical history of end- stage renal disease on peritoneal dialysis, hypertension, diabetes mellitus is being admitted status post transmetatarsal amputation of the right foot. Patient has had dry gangrene in the left foot for the past few weeks, underwent amputation of 2 toes with poor wound healing, also underwent multiple angioplasties in the leg without much success with eventual transmetatarsal amputation during this hospitalization. Patient had poor wound healing post transmetatarsal amputation, underwent right BKA. 10/09/19 Patient hypoglycemic in the morning, received 45 units of Levemir last night, received 1 amp of D50 with subsequent improvement and hypoglycemia. Patient seen in the morning, comfortable in bed, without any complaints, awaiting placement. 10/10/19 No acute events overnight, no complaints at this time, has elected for HD so he can go to rehab as he is having difficulty finding placement w/ PD, plan for P ermacath placement by Vascular surgery. 10 point review of system is negative except for above PHYSICAL EXAMINATION: VITAL SIGNS: Please see below. GENERAL: No distress HEENT: Normocephalic, atraumatic, moist mucous membranes NECK: Supple CARDIOVASCULAR EXAMINATION: S1, S2, no murmurs RESPIRATORY EXAMINATION: Clear to auscultation, no wheezing ABDOMINAL EXAMINATION: Soft, nontender, nondistended, positive bowel sounds, peritoneal dialysis catheter in place, no erythema or drainage EXTREMITIES: Left upper extremity AV fistula, index finger of left hand with dry gangrene, improved coloration & warmth of the hand w/ significantly improved cap refill, status post right BKA, clean/dry/intact dressing in place NEUROLOGICAL EXAMINATION: Alert and oriented 3, no focal deficits PSYCHIATRIC EXAMINATION: Calm and cooperative LABORATORY DATA: See below. MICROBIOLOGY: Please see below. ASSESSMENT: 63-year-old male with past medical history of as his renal disease, hypertension and diabetes mellitus is admitted status post transmetatarsal amputation of the right foot. PLAN: 1. Status post right BKA Initially underwent transmetatarsal amputation of right foot secondary to dry gangrene, poor healing, underwent right BKA, vascular surgery and podiatry following. 2. End-stage renal disease. On peritoneal dialysisYessica, elected for HD to accommodate rehab placement, plan for Permacath placement by Vascular surgery, nephrology following. 3. Peripheral vascular disease. History of multiple angiographies/angioplasties, history of left upper extremity AV fistula, s/p banding of LUE AV fistula, continue aspirin, Plavix & statin. 4. Diabetes mellitus. Continue Levemir 25 units at bedtime, sliding scale insulin coverage with meals and at bedtime. 5. Anemia. Chronic, secondary to renal failure, received 1 unit of PRBC prior to BKA, scheduled to receive an additional unit of PRBC today, on Aranesp. DVT prophylaxis: Heparin subcutaneous GI prophylaxis: Not needed VS, I&O, 24H, Fishbone Vital Signs/I&O Vital Signs Date Time Temp Pulse Resp B/P (MAP) Pulse Ox O2 Delivery O2 Flow Rate FiO2 10/10/19 18:20 97.2 92 18 140/72 100 Room Air 10/06/19 21:50 2.0 I&O- Last 24 Hours up to 6 AM 10/10/19 06:00 Intake Total 00249 ml Output Total 19652 ml Balance -1150 ml Laboratory Data 24H LABS Laboratory Tests 2 10/09/19 21:05: Bedside Glucose (Misc Panel) 223H 10/10/19 04:22: Bedside Glucose (Misc Panel) 221H 10/10/19 05:48: Nucleated Red Blood Cells % (auto) 0.0, Anion Gap 7L, Glomerular Filtration Rate 4.9L, Calcium Level 8.8 10/10/19 11:13: Bedside Glucose (Misc Panel) 283H 10/10/19 17:51: Bedside Glucose (Misc Panel) 299H CBC/BMP Laboratory Tests 10/10/19 05:48 Microbiology Microbiology 10/09/19 Blood Culture - Preliminary, Resulted No growth after 24 hours . All specim... SHANNAN WADSWORTH MD Oct 10, 2019 20:18
[2019-10-10] MEDS: SIMVASTATIN 40 MG TAB PO SCH (21:10)
[2019-10-10] MEDS: LEVEMIR (INSULIN DETEMIR) 1 UNITS/0.01ML SC SCH (21:11)
[2019-10-10 22:00] VITALS: BP 189/92
[2019-10-10 22:30] VITALS: BP 158/70
[2019-10-11 06:00] VITALS: BP 156/80
[2019-10-11 06:07] LABS: HEMATOCRIT 25.8 % (42.0-52.0); HEMOGLOBIN 8.1 g/dl (13.5-17.5); MEAN CORPUSCULAR HEMOGLOBIN 31.2 pg (27.0-33.0); MEAN CORPUSCULAR HGB CONC 31.4 g/dl (32.0-36.5); MEAN CORPUSCULAR VOLUME 99.2 fl (80.0-96.0); PLATELET COUNT, AUTOMATED 319 10^3/uL (150-450); WHITE BLOOD COUNT 16.1 10^3/uL (4.0-10.0)
[2019-10-11 06:26] LABS: CALCIUM LEVEL 8.9 MG/DL (8.8-10.2); CREATININE FOR GFR 10.8 MG/DL (0.70-1.30); GLOMERULAR FILTRATION RATE 5.1 (>49); POTASSIUM SERUM 4.6 MEQ/L (3.5-5.1)
[2019-10-11] MEDS: HEPARIN SOD (PORCINE) 5000 UNITS/ML VIAL (J1644 PER 1000UNITS) SQ SCH ×2 (08:41→22:11)
[2019-10-11] MEDS: HumaLOG INSULIN (NovoLOG) PER UNIT SC SCH ×4 (08:41→22:13)
[2019-10-11] MEDS: SUCROFERRIC OXYHYDROXIDE 500MG CHEW TAB (VELPHORO) PO SCH ×3 (08:42→17:47)
[2019-10-11] MEDS: DOCUSATE SODIUM 100 MG CAP PO SCH ×2 (08:42→22:11)
[2019-10-11] MEDS: POTASSIUM CHLORIDE 10 MEQ SR TABLET PO SCH ×2 (08:42→22:11)
[2019-10-11] MEDS: ASPIRIN 81 MG ENTERIC TAB PO SCH (08:42)
[2019-10-11] MEDS: CLOPIDOGREL 75 MG TAB PO SCH (08:42)
[2019-10-11] MEDS: MIRALAX *UNIT DOSE* 17GM PACKET PO SCH (08:42)
[2019-10-11] MEDS: prednisoLONE ACET 1% OPHTH SUSP 5ML OS SCH ×2 (08:44→22:12)
[2019-10-11] MEDS: ATROPINE SULFATE 1% OP SOLN 2 ML BTL OS SCH (08:44)
[2019-10-11] MEDS: BRINZOLAMIDE 1 % OPHTH SUSP (AZOPT) 10ML OS SCH ×2 (08:44→22:12)
--- NOTE | 2019-10-11 09:34 | IPNPDOC ---
Date Seen The patient was seen on 10/11/19. Progress Note Patient seen and examined this morning. He was doing well and continues to be in a good mood. He seems to be feeling much better, now POD #5 status post right below-knee amputation. He says his appetite and energy has improved significantly and he is working with PT/OT. Yesterday, while working with PT, his stump got mildly injured accidentally, and we will watch this closely. On exam the stump is clean dry and intact with no drainage. The skin edges are well approximated. The posterior flap is warm and pink with good capillary refill and the skin edges all appear viable. The pretibial aspect has some mild erythema and petechiae from yesterday's event, but no major damage noted. The incision was thoroughly cleaned and dressed with Xeroform gauze fluffs Kerlix and an Eladio wrap. The patient tolerated the dressing change well and so far everything looks very good. Regarding his left upper extremity, the incision is clean dry and intact and there is good signal over the cephalic vein fistula. There is a palpable radial pulse and ulnar signal, and is warm and well-perfused, and the index finger tip dry gangrene is stable and appears to be somewhat improved with new skin regenerating proximal to distal. The dry gangrene will auto-debride on its own as the skin regenerates. I would avoid aggressive debridements to the finger. The finger tip is hyperemic. The patient says his hand feels much better. It is ok to use the fistula for dialysis while he is in rehab, and I have discussed this with Dr Quinteros. If there is a problem with the fistula, we can place a permcath this afternoon or Monday, but it is large, superficial, and well matured. With his WBC still elevated (although thankfully trending down now), we would prefer not to place a permcath if it can be avoided. Our plan is to continue daily dressing changes for the right below-knee amputation stump. The patient will need a knee immobilizer/stump protector to help extend the leg and prevent contractures, but for now he is doing well keeping the leg extended without it. He will continue with physical therapy and occupational therapy as tolerated. Okay for out of bed from vascular standpoint. We will continue to follow along with the left upper extremity as he seems to have had some improvement since we banded the fistula. It will likely take several months for the fingertip to regenerate, but so far it appears to be stable and improving. The patient and his were thoroughly counseled and all questions were answered. VS, I&O, 24H, Fishbone Vital Signs/I&O Vital Signs Date Time Temp Pulse Resp B/P (MAP) Pulse Ox O2 Delivery O2 Flow Rate FiO2 10/11/19 08:44 90 140/67 10/11/19 06:00 98.8 18 96 Room Air 10/06/19 21:50 2.0 I&O- Last 24 Hours up to 6 AM 10/11/19 05:59 Intake Total 9300 ml Output Total 8700 ml Balance 600 ml Laboratory Data 24H LABS Laboratory Tests 2 10/10/19 11:13: Bedside Glucose (Misc Panel) 283H 10/10/19 17:51: Bedside Glucose (Misc Panel) 299H 10/10/19 20:58: Bedside Glucose (Misc Panel) 312H 10/11/19 05:54: Nucleated Red Blood Cells % (auto) 0.0, Anion Gap 9, Glomerular Filtration Rate 5.1L, Calcium Level 8.9 CBC/BMP Laboratory Tests 10/11/19 05:54 Microbiology Microbiology 10/09/19 Blood Culture - Preliminary, Resulted No Growth after 48 hours. All Specime... ZACARIAS PATRICK MD Oct 11, 2019 09:34
[2019-10-11] MEDS ORDERED: HEPARIN 1,000 UNITS/ML 10ML VIAL (FOR RADIOLOGY& DIALYSIS ONLY)(J1644-10) IV ONE (11:30)
[2019-10-11] MEDS ORDERED: LIDOCAINE 1% SDV 5 ML VIAL SQ ONE (11:30)
[2019-10-11] MEDS ORDERED: INSULANT SC (12:42)
--- NOTE | 2019-10-11 12:47 | DS.PDOC ---
Discharge Summary General Date of Admission Oct 02, 2019 at 10:53 Date of Discharge 10/11/19 Attending Physician: SHANNAN WADSWORTH MD Discharge Summary PROCEDURES PERFORMED DURING STAY: Right foot transmetatarsal amputation, right BKA, left upper extremity AV fistula banding ADMITTING DIAGNOSES: 1. Dry gangrene, poor wound healing. DISCHARGE DIAGNOSES: 1. Dry gangrene, poor wound healing, transmetatarsal amputation, right BKA. COMPLICATIONS/CHIEF COMPLAINT: Left Hand Wound. HISTORY OF PRESENT ILLNESS: 63-year-old male with past medical history of end- stage renal disease, severe peripheral vascular disease, was admitted for elective transmetatarsal amputation of right foot due to poor wound healing and dry gangrene. Patient underwent transmetatarsal amputation of the right foot, but continued to have poor wound healing and eventually underwent right BKA by vascular surgery. He is doing well postop, wound looks good and he has been cleared for discharge to rehabilitation. Patient initially on peritoneal dialysis but unable to find appropriate rehabilitation placement because of prior to dialysis. Patient already had a previously placed left upper extremity AV fistula, had left index finger dry gangrene for which AV fistula was banded by vascular surgery. Patient is to switch over to hemodialysis today via left upper extremity AV fistula, so he can be discharged to rehabilitation. Patient is clinically and hemodynamically stable for discharge and outpatient follow-up with vascular surgery, podiatry nephrology and PCP after his discharge from acute rehabilitation unit. HOSPITAL COURSE: As above. DISCHARGE MEDICATIONS: Please see below. ALLERGIES: Please see below. PHYSICAL EXAMINATION: VITAL SIGNS: Please see below. GENERAL: No distress HEENT: Normocephalic, atraumatic, moist mucous membranes NECK: Supple CARDIOVASCULAR EXAMINATION: S1, S2, no murmurs RESPIRATORY EXAMINATION: Clear to auscultation, no wheezing ABDOMINAL EXAMINATION: Soft, nontender, nondistended, positive bowel sounds EXTREMITIES: Left upper extremity AV fistula, right BKA dressing in place, clean, dry, intact SKIN: No rash NEUROLOGICAL EXAMINATION: Alert and oriented 3, no focal deficits PSYCHIATRIC EXAMINATION: Calm and cooperative LABORATORY DATA: Please see below. PROGNOSIS: Fair ACTIVITY: As tolerated. DIET: Cardiac DISCHARGE PLAN: Follow-up with nephrology, podiatry, vascular surgery and PCP after discharge from acute rehabilitation unit DISPOSITION: Acute rehabilitation unit. DISCHARGE INSTRUCTIONS: 1. As above. DISCHARGE CONDITION: Stable. TIME SPENT ON DISCHARGE: Greater than 35 minutes. Vital Signs/I&Os Vital Signs Date Time Temp Pulse Resp B/P (MAP) Pulse Ox O2 Delivery O2 Flow Rate FiO2 10/11/19 08:44 90 140/67 10/11/19 06:00 98.8 18 96 Room Air 10/06/19 21:50 2.0 l I&O- Last 24 Hours up to 6 AM 10/11/19 06:00 Intake Total 7300 ml Output Total 6400 ml Balance 900 ml Laboratory Data Labs 24H Laboratory Tests 2 10/10/19 17:51: Bedside Glucose (Misc Panel) 299H 10/10/19 20:58: Bedside Glucose (Misc Panel) 312H 10/11/19 05:54: Nucleated Red Blood Cells % (auto) 0.0, Anion Gap 9, Glomerular Filtration Rate 5.1L, Calcium Level 8.9 10/11/19 11:27: Bedside Glucose (Misc Panel) 295H 10/11/19 12:18: CBC/BMP Laboratory Tests 10/11/19 05:54 FSBS Laboratory Tests Test 10/10/19 17:51 10/10/19 20:58 10/11/19 11:27 Range/Units Bedside Glucose (Misc Panel) 299 312 295 80-115 MG/DL Microbiology Microbiology 10/09/19 Blood Culture - Preliminary, Resulted No Growth after 48 hours. All Specime... Discharge Medications Scheduled Aspirin (Aspir 81) 81 Mg Tablet.dr, 81 MG PO DAILY, (Reported) Atropine Sulfate (Atropine Sulfate) 1% 2ML Drops, 1 DROP OS DAILY, (Reported) Bimatoprost (Lumigan) 50 Drop/2.5 Ml Karla, 1 DROP OU QHS, (Reported) Brimonidine Tartrate/Timolol (Combigan 0.2%-0.5% Eye Drops) 5 Ml Drops, 1 DROP OU BID, (Reported) Brinzolamide (Azopt) 1% 10ML Drops.susp, 1 DROP OS BID, (Reported) Clopidogrel Bisulfate (Clopidogrel) 75 Mg Tablet, 75 MG PO DAILY, (Reported) Insulin Glargine (Lantus) 1 Units/0.01 Ml Susp, 35 UNITS SC QHS Insulin Human Lispro (Humalog) 1 Units/0.01 Ml Inj, 1 DOSE SC AC, (Reported) PER SLIDING SCALE Prednisolone Acetate (Prednisolone Acetate 1% Opth Susp) 5 Ml Drops.susp, 1 DROP OS BID, (Reported) Simvastatin (Simvastatin) 40 Mg Tab, 40 MG PO QHS, (Reported) Sucroferric Oxyhydroxide (Velphoro) 500 Mg Tab.chew, 500 MG PO WM, (Reported) Vit B Comp No.3/Folic/C/Biotin (Jaz-Basilio Rx Tablet) 1 Each Tablet, 1 TAB PO DAILY, (Reported) Allergies Coded Allergies: acetazolamide (Verified Adverse Reaction, Severe, CONVULSIONS, 10/02/19) SHANNAN WADSWORTH MD Oct 11, 2019 12:47
[2019-10-11 13:50] LABS: HEPATITIS B CORE ANTIBODY IGM NEGATIVE (NEGATIVE); HEPATITIS B SURFACE ANTIBODY NEGATIVE (POSITIVE); HEPATITIS B SURFACE ANTIGEN NEGATIVE (NEGATIVE); HEPATITIS C VIRUS ABY INDEX < 0.0 INDEX (<0.8)
--- NOTE | 2019-10-11 16:41 | IPN ---
DATE: 10/11/2019 Mr. Lawson is seen this morning on his bedside. He is currently sitting in the chair and reports feeling dizzy. He wants to go in the bed now. He is also due for his peritoneal dialysis exchange in next few minutes. The patient denies any nausea, vomiting, dyspnea or chest pain. Yesterday we ordered transfusion of 1 unit packed RBC. However it could not be done due to lack of a peripheral IV access. PHYSICAL EXAMINATION Temperature 98.8 degrees Fahrenheit, heart rate 90 per minute and respiratory rate 18 per minute. Blood pressure 140/67 mmHg and oxygen saturation 96% on room air. Head is atraumatic. Neck: Supple and JVD difficult to be assessed sitting upright. Heart: Sounds are regular and lungs clear to auscultation. Abdomen: Soft, nontender and distended with peritoneal solution. Peritoneal dialysis catheter is intact. Extremities have no cyanosis or clubbing. Left upper arm AV fistula has a faint bruit and thrill. He has a right [id number] amputation and stump is wrapped in dressing. Neurologically he is awake, alert and at his baseline mentation. LABS: Today's labs show WBC count 16.1, hemoglobin 8.1 and hematocrit 25.8. Platelets 319. Sodium 135, potassium 4.6, CO2 29, BUN 77 and creatinine 10.8. Glucose 298 and calcium 8.9. PROBLEMS 1. End-stage renal disease. Currently the patient is on peritoneal dialysis and will continue with the same until we switch him to hemodialysis temporarily. 2. Anemia. No significant change, but slight improvement noticed since yesterday. He could not get transfusion due to lack of an IV access and we will try to transfuse him during hemodialysis. At this point we will hold off as there is no urgent need for it. 3. Generalized weakness and rehab following right uxtgx-rzy-fcek amputation. The patient is likely to go to acute rehab floor and we will temporarily switch him to hemodialysis. We are going to try to use his left arm fistula if it works and if it does not work then he will get a Perma-Cath placed. Due to scheduling issue we are not sure if he will be dialyzed today or tomorrow. We will try to switch him to hemodialysis as soon as the schedule allows. 4. Hypertension. His blood pressure remains reasonably well-controlled. He does feel dizzy and lightheaded when he sits for awhile. No change in antihypertensives being made.
[2019-10-11 22:00] VITALS: BP_SYST 124; BP_SYST 189; BP_DIAS 60; BP_DIAS 90
[2019-10-11] MEDS: SIMVASTATIN 40 MG TAB PO SCH (22:11)
[2019-10-11] MEDS: LEVEMIR (INSULIN DETEMIR) 1 UNITS/0.01ML SC SCH (22:13)
[2019-10-12] VITALS (9 sets, daily range): BP systolic 102–154; BP diastolic 54–84
[2019-10-12] MEDS: ASPIRIN 81 MG ENTERIC TAB PO SCH (06:03)
[2019-10-12] MEDS: HEPARIN SOD (PORCINE) 5000 UNITS/ML VIAL (J1644 PER 1000UNITS) SQ SCH ×2 (06:04→20:30)
[2019-10-12] MEDS: CLOPIDOGREL 75 MG TAB PO SCH (06:05)
[2019-10-12] MEDS: POTASSIUM CHLORIDE 10 MEQ SR TABLET PO SCH ×2 (06:05→20:31)
[2019-10-12] MEDS: DOCUSATE SODIUM 100 MG CAP PO SCH ×2 (06:06→20:30)
[2019-10-12] MEDS: MIRALAX *UNIT DOSE* 17GM PACKET PO SCH (06:07)
[2019-10-12] MEDS: SUCROFERRIC OXYHYDROXIDE 500MG CHEW TAB (VELPHORO) PO SCH ×3 (08:00→17:21)
[2019-10-12] MEDS ORDERED: LEVEMIR (INSULIN DETEMIR) 1 UNITS/0.01ML SC ONE (08:00)
[2019-10-12] MEDS: HumaLOG INSULIN (NovoLOG) PER UNIT SC SCH ×4 (08:07→20:31)
[2019-10-12] MEDS ORDERED: DARBEPOETIN 200MCG/0.4ML *DIALYSIS* SYRINGE (J0882 PER 1MCG) SC SCH (09:00)
--- NOTE | 2019-10-12 10:00 | IPNPDOC ---
Date Seen The patient was seen on 10/12/19. Progress Note Patient seen and examined this morning. He was doing well and continues to be in a good mood. He seems to be feeling much better, now POD #6 status post right below-knee amputation. He says his appetite and energy has improved significantly and he is working with PT/OT. Yn exam the stump is clean dry and intact with no drainage. The skin edges are well approximated. The posterior flap is warm and pink with good capillary refill and the skin edges all appear viable. The pretibial aspect has some mild erythema and petechiae from a mild injury while working with PT/OT, but no major damage noted. The incision was thoroughly cleaned and dressed with Xeroform gauze fluffs Kerlix and an Eladio wrap. The patient tolerated the dressing change well and so far everything looks very good. Regarding his left upper extremity, the incision is clean dry and intact and there is good signal over the cephalic vein fistula. There is a palpable radial pulse and ulnar signal, and is warm and well-perfused, and the index finger tip dry gangrene is stable and appears to be somewhat improved with new skin regenerating proximal to distal. The dry gangrene will auto-debride on its own as the skin regenerates. I would avoid aggressive debridements to the finger. The finger tip is hyperemic. The patient says his hand feels much better. It is ok to use the fistula for dialysis while he is in rehab, and I have discussed this with Dr Quinteros. If there is a problem with the fistula, we can place a permcath this afternoon or Monday, but it is large, superficial, and well matured. With his WBC still elevated (although thankfully trending down now), we would prefer not to place a permcath if it can be avoided. I accessed the fistula for the HD RN today, and it is running well despite her initially pulling out the first arterial needle and causing a small infiltration. I held pressure for 5 minutes for good hemostasis, and changed the arterial needle to an access more proximal to the AV anastamosis and the venous needle more proximal vein in the upper arm to avoid the infiltration. I will likely have to do the dialysis access while he is in rehab, until he can go home and start back on PD. The fistula is running well, with good arterial and venous flows noted. Our plan is to continue daily dressing changes for the right below-knee amputation stump. The patient will need a knee immobilizer/stump protector to help extend the leg and prevent contractures, but for now he is doing well keeping the leg extended without it. He will continue with physical therapy and occupational therapy as tolerated. Okay for out of bed from vascular standpoint. We will continue to follow along with the left upper extremity as he seems to have had some improvement since we banded the fistula. It will likely take several months for the fingertip to regenerate, but so far it appears to be stable and improving. The patient and his were thoroughly counseled and all questions were answered. VS, I&O, 24H, Fishbone Vital Signs/I&O Vital Signs Date Time Temp Pulse Resp B/P (MAP) Pulse Ox O2 Delivery O2 Flow Rate FiO2 10/12/19 06:06 93 118/72 10/12/19 06:00 98.0 19 95 10/11/19 22:00 Nasal Cannula 2.0 I&O- Last 24 Hours up to 6 AM 10/12/19 06:00 Intake Total 00705 ml Output Total 9600 ml Balance 820 ml Laboratory Data 24H LABS Laboratory Tests 2 10/11/19 11:27: Bedside Glucose (Misc Panel) 295H 10/11/19 12:18: Hepatitis B Surface Antigen NEGATIVE, Hepatitis B Surface Antibody NEGATIVE, Hepatitis B Core IgM Antibody NEGATIVE, Hepatitis C Antibody Index < 0.0 10/11/19 16:36: Bedside Glucose (Misc Panel) 243H 10/11/19 20:38: Bedside Glucose (Misc Panel) 362H 10/12/19 05:54: Bedside Glucose (Misc Panel) 333H Microbiology Microbiology 10/09/19 Blood Culture - Preliminary, Resulted No Growth after 72 hours. All specime... ZACARIAS PATRICK MD Oct 12, 2019 10:00
[2019-10-12 10:05] LABS: HEMATOCRIT 21.8 % (42.0-52.0); MEAN CORPUSCULAR HEMOGLOBIN 31.8 pg (27.0-33.0); MEAN CORPUSCULAR HGB CONC 31.7 g/dl (32.0-36.5); MEAN CORPUSCULAR VOLUME 100.5 fl (80.0-96.0); PLATELET COUNT, AUTOMATED 306 10^3/uL (150-450); RED BLOOD COUNT 2.17 10^6/uL (4.30-6.10); WHITE BLOOD COUNT 13.7 10^3/uL (4.0-10.0)
[2019-10-12 10:13] LABS: HEMOGLOBIN 6.9 g/dl (13.5-17.5)
[2019-10-12 10:29] LABS: ALBUMIN 1.6 GM/DL (3.2-5.2); CALCIUM LEVEL 7.7 MG/DL (8.8-10.2); CREATININE FOR GFR 9.44 MG/DL (0.70-1.30); PHOSPHORUS LEVEL 3.2 MG/DL (2.5-4.9); POTASSIUM SERUM 4.7 MEQ/L (3.5-5.1)
[2019-10-12] MEDS ORDERED: LIDOCAINE 1% SDV 5 ML VIAL SQ ONE (12:45)
[2019-10-12] MEDS ORDERED: HEPARIN 1,000 UNITS/ML 10ML VIAL (FOR RADIOLOGY& DIALYSIS ONLY)(J1644-10) IV ONE (12:45)
[2019-10-12] MEDS: prednisoLONE ACET 1% OPHTH SUSP 5ML OS SCH ×2 (14:25→20:32)
[2019-10-12] MEDS: ATROPINE SULFATE 1% OP SOLN 2 ML BTL OS SCH (14:25)
[2019-10-12] MEDS: BRINZOLAMIDE 1 % OPHTH SUSP (AZOPT) 10ML OS SCH ×2 (14:25→20:32)
[2019-10-12] MEDS: SIMVASTATIN 40 MG TAB PO SCH (20:30)
[2019-10-12] MEDS: LEVEMIR (INSULIN DETEMIR) 1 UNITS/0.01ML SC SCH (20:31)
[2019-10-13 06:00] VITALS: BP 132/82
--- NOTE | 2019-10-13 07:33 | IPN ---
DATE: 10/12/2019 Mr. Lawson is seen this morning during hemodialysis. We have switched him to hemodialysis temporarily as he is likely to go to acute rehab floor and will not be able to do peritoneal dialysis. Dr. Andrew was kind enough to help with needle placement in his fistula this morning. PHYSICAL EXAMINATION: Temperature 97.2 degrees Fahrenheit, heart rate 62 per minute and respiratory rate 16 per minute. Blood pressure 113/69 mmHg and oxygen saturation is 95%. Head is atraumatic. Neck supple and JVD difficult to be assessed. His heart sounds are regular and lungs have slightly diminished breath sounds at bases. Abdomen soft and nontender and distended with peritoneal dialysis solution. Peritoneal dialysis catheter is intact. Extremities have no cyanosis or clubbing. He has a right zbgfy-obk-tllk amputation and stump is wrapped in dressing. His left arm AV fistula is currently being used for dialysis. Today's labs show WBC count 13.7, hemoglobin 6.9 and hematocrit 21.8. Platelets 306. Sodium 136, potassium 4.7, BUN 70 and creatinine 9.44. Glucose 424 and calcium 7.7. Albumin is 1.6. PROBLEMS: 1. End-stage renal disease. The patient has been on peritoneal dialysis and now temporary switched to hemodialysis in order for him to go to acute rehab floor. He will switch back to peritoneal dialysis when he gets discharged to home. 2. Anemia. The patient has worsening anemia and is going to have 2 units of packed RBCs transfused during dialysis. We attempted to transfuse him a couple of days ago, however, it was unsuccessful due to lack of an IV access. 3. Peripheral vascular disease, status post right yymrk-hmx-iawu amputation due to gangrenous foot. The patient is doing well since surgery and will need acute rehab. 4. Hyperglycemia. His blood sugar is quite elevated today which is unusual for him. He will be given insulin coverage and close monitoring of his blood sugars will continue. 5. 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 The patient will be encouraged to increase his protein intake.
[2019-10-13] MEDS: MIRALAX *UNIT DOSE* 17GM PACKET PO SCH (07:50)
[2019-10-13] MEDS: HumaLOG INSULIN (NovoLOG) PER UNIT SC SCH ×4 (07:50→21:35)
[2019-10-13] MEDS: SUCROFERRIC OXYHYDROXIDE 500MG CHEW TAB (VELPHORO) PO SCH ×3 (07:50→17:09)
[2019-10-13] MEDS: BRINZOLAMIDE 1 % OPHTH SUSP (AZOPT) 10ML OS SCH ×2 (07:51→21:30)
[2019-10-13] MEDS: ATROPINE SULFATE 1% OP SOLN 2 ML BTL OS SCH (07:52)
[2019-10-13] MEDS: prednisoLONE ACET 1% OPHTH SUSP 5ML OS SCH ×2 (07:52→21:30)
[2019-10-13] MEDS: CLOPIDOGREL 75 MG TAB PO SCH (07:52)
[2019-10-13] MEDS: POTASSIUM CHLORIDE 10 MEQ SR TABLET PO SCH ×2 (07:53→21:29)
[2019-10-13] MEDS: ASPIRIN 81 MG ENTERIC TAB PO SCH (07:53)
[2019-10-13] MEDS: DOCUSATE SODIUM 100 MG CAP PO SCH ×2 (07:53→21:28)
[2019-10-13] MEDS: HEPARIN SOD (PORCINE) 5000 UNITS/ML VIAL (J1644 PER 1000UNITS) SQ SCH ×2 (07:54→21:30)
--- NOTE | 2019-10-13 10:14 | IPNPDOC ---
Date Seen The patient was seen on 10/13/19. Progress Note HISTORY OF PRESENT ILLNESS: 63-year-old male with past medical history of end- stage renal disease on peritoneal dialysis, hypertension, diabetes mellitus is being admitted status post transmetatarsal amputation of the right foot. Patient has had dry gangrene in the left foot for the past few weeks, underwent amputation of 2 toes with poor wound healing, also underwent multiple angioplasties in the leg without much success with eventual transmetatarsal amputation during this hospitalization. Patient had poor wound healing post transmetatarsal amputation, underwent right BKA. 10/09/19 Patient hypoglycemic in the morning, received 45 units of Levemir last night, received 1 amp of D50 with subsequent improvement and hypoglycemia. Patient seen in the morning, comfortable in bed, without any complaints, awaiting placement. 10/10/19 No acute events overnight, no complaints at this time, has elected for HD so he can go to rehab as he is having difficulty finding placement w/ PD, plan for Permacath placement by Vascular surgery. 10/13/19 Comfortable in bed, no acute events overnight, tolerated hemodialysis yesterday without issues, tolerated breakfast, awaiting acute rehabilitation unit placement tomorrow. 10 point review of system is negative except for above PHYSICAL EXAMINATION: VITAL SIGNS: Please see below. GENERAL: No distress HEENT: Normocephalic, atraumatic, moist mucous membranes NECK: Supple CARDIOVASCULAR EXAMINATION: S1, S2, no murmurs RESPIRATORY EXAMINATION: Clear to auscultation, no wheezing ABDOMINAL EXAMINATION: Soft, nontender, nondistended, positive bowel sounds, peritoneal dialysis catheter in place, no erythema or drainage EXTREMITIES: Left upper extremity AV fistula, index finger of left hand with dry gangrene, improved coloration & warmth of the hand w/ significantly improved cap refill, status post right BKA, clean/dry/intact dressing in place NEUROLOGICAL EXAMINATION: Alert and oriented 3, no focal deficits PSYCHIATRIC EXAMINATION: Calm and cooperative LABORATORY DATA: See below. MICROBIOLOGY: Please see below. ASSESSMENT: 63-year-old male with past medical history of as his renal disease, hypertension and diabetes mellitus is admitted status post transmetatarsal amputation of the right foot. PLAN: 1. Status post right BKA Initially underwent transmetatarsal amputation of right foot secondary to dry gangrene, poor healing, underwent right BKA, vascular surgery and podiatry following. 2. End-stage renal disease. Switched to hemodialysis temporarily for acute rehabilitation unit placement, continue Aranesp, received 2 units of packed apostles yesterday, nephrology following. 3. Peripheral vascular disease. History of multiple angiographies/angioplasties, history of left upper extremity AV fistula, s/p banding of LUE AV fistula, continue aspirin, Plavix & statin. 4. Diabetes mellitus. Continue Levemir 35 units at bedtime, sliding scale insulin coverage with meals and at bedtime. 5. Anemia. Chronic, secondary to renal failure, received 3 unit of PRBC total, on Aranesp. DVT prophylaxis: Heparin subcutaneous GI prophylaxis: Not needed VS, I&O, 24H, Fishbone Vital Signs/I&O Vital Signs Date Time Temp Pulse Resp B/P (MAP) Pulse Ox O2 Delivery O2 Flow Rate FiO2 10/13/19 07:53 82 132/82 10/13/19 06:00 97.9 21 96 Room Air 10/12/19 11:30 2.0 I&O- Last 24 Hours up to 6 AM 10/13/19 06:00 Intake Total 820 ml Output Total 2100 ml Balance -1280 ml Laboratory Data 24H LABS Laboratory Tests 2 10/12/19 14:25: Bedside Glucose (Misc Panel) 191H 10/12/19 16:41: Bedside Glucose (Misc Panel) 191H 10/12/19 20:05: Bedside Glucose (Misc Panel) 248H 10/13/19 05:28: Bedside Glucose (Misc Panel) 139H Microbiology Microbiology 10/09/19 Blood Culture - Preliminary, Resulted No Growth after 72 hours. All specime... SHANNAN WADSWORTH MD Oct 13, 2019 10:14
[2019-10-13 14:00] VITALS: BP 160/80
--- NOTE | 2019-10-13 15:24 | IPNPDOC ---
Date Seen The patient was seen on 10/13/19. Progress Note Patient seen and examined this morning. He was doing well and continues to be in a good mood. He seems to be feeling much better after a couple units of blood with dialysis yesterday, and he is now POD #7 status post right below-knee amputation. He says his appetite and energy has improved significantly and he is working with PT/OT. On exam the stump is clean dry and intact with no drainage, but there is some mild erythema around the incision on the pretibial area and on the posterior flap. It blanches, no induration, and no drainage or fluctuance. The skin edges are well approximated and healing well. I'm not sure if this is cellulitic changes, especially since white blood cell count went down again today, but we will watch her closely. If it is still erythematous tomorrow I may try some Keflex to see if that helps. Incision was thoroughly cleaned and dressed with Xeroform gauze fluffs Kerlix and the Eladio wrap was left off today to help the area breathe a bit. The patient tolerated the dressing change well. Regarding his left upper extremity, the incision is clean dry and intact and there is good signal over the cephalic vein fistula. There is a palpable radial pulse and ulnar signal, and is warm and well-perfused, and the index finger tip dry gangrene is stable and appears to be somewhat improved with new skin regenerating proximal to distal. The dry gangrene will auto-debride on its own as the skin regenerates. I would avoid aggressive debridements to the finger. The finger tip is hyperemic. The patient says his hand feels much better. It is ok to use the fistula for dialysis while he is in rehab, and it was access yesterday, and the fistula is running well, with good arterial and venous flows noted. If access proves too difficult for the dialysis nurses, we will place a PermCath next week to make it easier. Our plan is to continue daily dressing changes for the right below-knee amputation stump. The patient will need a knee immobilizer/stump protector to help extend the leg and prevent contractures, but for now he is doing well lynn ping the leg extended without it. He will continue with physical therapy and occupational therapy as tolerated. Okay for out of bed from vascular standpoint. We will continue to follow along with the left upper extremity as he seems to have had some improvement since we banded the fistula. It will likely take several months for the fingertip to regenerate, but so far it appears to be stable and improving. The patient and his were thoroughly counseled and all questions were answered. VS, I&O, 24H, Fishbone Vital Signs/I&O Vital Signs Date Time Temp Pulse Resp B/P (MAP) Pulse Ox O2 Delivery O2 Flow Rate FiO2 10/13/19 07:53 82 132/82 10/13/19 06:00 97.9 21 96 Room Air 10/12/19 11:30 2.0 I&O- Last 24 Hours up to 6 AM 10/13/19 06:00 Intake Total 820 ml Output Total 2100 ml Balance -1280 ml Laboratory Data 24H LABS Laboratory Tests 2 10/12/19 16:41: Bedside Glucose (Misc Panel) 191H 10/12/19 20:05: Bedside Glucose (Misc Panel) 248H 10/13/19 05:28: Bedside Glucose (Misc Panel) 139H 10/13/19 11:58: Bedside Glucose (Misc Panel) 238H Microbiology Microbiology 10/09/19 Blood Culture - Preliminary, Resulted No Growth after 72 hours. All specime... ZACARIAS PATRICK MD Oct 13, 2019 15:24
[2019-10-13] MEDS: SIMVASTATIN 40 MG TAB PO SCH (21:29)
[2019-10-13] MEDS: LEVEMIR (INSULIN DETEMIR) 1 UNITS/0.01ML SC SCH (21:30)
[2019-10-13 22:00] VITALS: BP 160/82
[2019-10-14 05:00] VITALS: BP 179/70
[2019-10-14 06:10] LABS: HEMATOCRIT 30.5 % (42.0-52.0); MEAN CORPUSCULAR HGB CONC 32.1 g/dl (32.0-36.5); MEAN CORPUSCULAR VOLUME 96.5 fl (80.0-96.0); PLATELET COUNT, AUTOMATED 340 10^3/uL (150-450); RED BLOOD COUNT 3.16 10^6/uL (4.30-6.10); WHITE BLOOD COUNT 13.2 10^3/uL (4.0-10.0)
[2019-10-14 06:11] VITALS: BP 179/70
[2019-10-14 06:16] LABS: HEMOGLOBIN 9.8 g/dl (13.5-17.5)
[2019-10-14 07:29] LABS: ALBUMIN 1.9 GM/DL (3.2-5.2); CALCIUM LEVEL 9.2 MG/DL (8.8-10.2); CREATININE FOR GFR 8.53 MG/DL (0.70-1.30); GLOMERULAR FILTRATION RATE 6.7 (>49); PHOSPHORUS LEVEL 2.6 MG/DL (2.5-4.9); POTASSIUM SERUM 4.7 MEQ/L (3.5-5.1)
[2019-10-14] MEDS: SUCROFERRIC OXYHYDROXIDE 500MG CHEW TAB (VELPHORO) PO SCH ×2 (07:55→12:09)
[2019-10-14] MEDS: ASPIRIN 81 MG ENTERIC TAB PO SCH (08:11)
[2019-10-14] MEDS: CLOPIDOGREL 75 MG TAB PO SCH (08:11)
[2019-10-14] MEDS: DOCUSATE SODIUM 100 MG CAP PO SCH (08:11)
[2019-10-14] MEDS: POTASSIUM CHLORIDE 10 MEQ SR TABLET PO SCH (08:11)
[2019-10-14] MEDS: HEPARIN SOD (PORCINE) 5000 UNITS/ML VIAL (J1644 PER 1000UNITS) SQ SCH (08:12)
[2019-10-14] MEDS: HumaLOG INSULIN (NovoLOG) PER UNIT SC SCH ×2 (08:13→12:10)
[2019-10-14] MEDS: BRINZOLAMIDE 1 % OPHTH SUSP (AZOPT) 10ML OS SCH (08:14)
[2019-10-14] MEDS: prednisoLONE ACET 1% OPHTH SUSP 5ML OS SCH (08:14)
[2019-10-14] MEDS: ATROPINE SULFATE 1% OP SOLN 2 ML BTL OS SCH (08:14)
[2019-10-14] MEDS: MIRALAX *UNIT DOSE* 17GM PACKET PO SCH (08:15)
--- NOTE | 2019-10-14 08:55 | IPNPDOC ---
Text Note Date of Service The patient was seen on 10/14/19. NOTE Vascular Surgery Dr Andrew. Patient seen and examined this morning. POD #8 status post right below-knee amputation. Plan is for transfer to ARU today. T max 99.3. On exam the stump is clean dry and intact with no drainage, but there is still mild erythema around the incision on the pretibial area and on the posterior flap. No warmth with palpation. It still blanches, no induration, and no drainage or fluctuance. The skin edges are well approximated and healing well. Continue to watch this closely. Incision was thoroughly cleaned and dressed with fluffs, dry gauze, Kerlix. The patient tolerated the dressing change well. Regarding his left upper extremity, the incision is clean dry and intact and there is good signal over the cephalic vein fistula. There is a palpable radial pulse and ulnar signal, and is warm and well-perfused, and the index finger tip dry gangrene is stable and appears to be somewhat improved with new skin regenerating. Per Dr Andrew, ok to use the fistula for dialysis while he is in rehab. If access proves too difficult for the dialysis nurses, plan to place a PermCath next week to make it easier. WBC 13.2. Our plan is to continue daily dressing changes for the right below-knee amputation stump. Will d/w Dr Andrew regarding the surrounding erythema on the stump. The patient will need a knee immobilizer/stump protector to help extend the leg and prevent contractures, but for now he is doing well keeping the leg extended without it. He will continue with physical therapy and occupational therapy as tolerated. Okay for out of bed from vascular standpoint. We will continue to follow along with the left upper extremity as he seems to have had some improvement since we banded the fistula. It will likely take several months for the fingertip to regenerate, but so far it appears to be stable and improving. VS,Fishbone, I+O VS, Fishbone, I+O Laboratory Tests 10/14/19 05:39 Vital Signs Date Time Temp Pulse Resp B/P (MAP) Pulse Ox O2 Delivery O2 Flow Rate FiO2 10/14/19 06:11 79 179/70 10/14/19 05:00 99.3 16 96 Room Air 10/12/19 11:30 2.0 I&O- Last 24 Hours up to 6 AM 10/14/19 06:00 Intake Total 120 ml Output Total 0 ml Balance 120 ml Dulce Espinal Oct 14, 2019 08:55
[2019-10-14] MEDS ORDERED: DARBEPOETIN 200MCG/0.4ML *DIALYSIS* SYRINGE (J0882 PER 1MCG) IV SCH (11:15)
--- NOTE | 2019-10-14 14:23 | IPN ---
DATE OF VISIT: 10/13/2019 Mr. Lawson is seen this morning on his bedside. He is currently participating in physical therapy. He was dialyzed yesterday and he tolerated his hemodialysis very well. Patient denies any nausea, vomiting, dyspnea or chest pain. On physical exam, temperature 97.8 degrees Fahrenheit, heart rate 82 per minute and respiratory rate 20 per minute. Blood pressure 132/82 mmHg and oxygen saturation 96% on room air. Head is atraumatic. Neck supple and without jugular venous distention (JVD) or thyroid enlargement. Lungs clear to auscultation and heart sounds regular. Abdomen soft and nontender, and bowel sounds are normal. Extremities without any cyanosis or clubbing. Left arm arteriovenous (AV) fistula has a weak bruit and thrill. He has a right [id number]-jwr-fywa amputation and stump is in the dressing. Neurologically, he is awake, alert and oriented times three. Patient did not have any labs today. PROBLEMS: 1. End-stage renal disease. Patient was dialyzed yesterday and his next hemodialysis will (dictation cut off). His volume status is very well compensated. 2. Peripheral vascular disease, status post right [id number] amputation. Patient is doing well and participating in the rehab. He is likely to be transferred to acute rehab floor tomorrow. 3. Anemia. Patient had worsening anemia and received 2 units of packed red blood cells (RBCs) yesterday during dialysis. We will check a complete blood count (CBC) tomorrow. 4. Generalized weakness and deconditioning. Patient is making good effort with physical therapy and is likely to be transferred to acute rehab floor tomorrow.
--- NOTE | 2019-10-14 20:10 | IPN ---
DATE: 10/14/2019 SUBJECTIVE: The patient was seen and examined at the bedside today morning. He is afebrile, hemodynamically stable. He denies any active complaints. He was dialyzed over the weekend, currently peritoneal dialysis is on hold. He is status post 2 units of packed red blood cell (PRBC) transfusion. Hemoglobin level is stable. OBJECTIVE: Vital signs: Temperature is 99.3 degrees Fahrenheit, blood pressure 179/70, pulse is 79, respiratory rate of 16, saturating 96% on room air. Intake and output: There is no urine output recorded. Weight in the bed scale was 95.1 kg. PHYSICAL EXAMINATION: General: The patient is awake, alert, oriented times three, laying in bed. No apparent distress. Head and neck exam: Extraocular muscles intact. Pupils equally round and reactive to light. The patient has poor vision in both eyes. Neck is supple. There is no jugular venous distention (JVD). Cardiovascular: S1, S2, regular rate. Trace edema of the left lower extremity. Respiratory: Chest is clear to auscultation bilaterally. Bilateral equal air entry. No rales or rhonchi. Abdomen: Soft, positive bowel sounds. Nontender. The patient has peritoneal dialysis catheter with a clean exit site. Musculoskeletal: The patient has right below-knee amputation site, which is covered with a dressing. Central nervous system (LABORER TREE TAPPING): The patient has poor vision. Otherwise he follows commands and moves all extremities. Arteriovenous (AV) Access: He has left upper arm AV fistula with thrill and bruit. Skin: The patient has a dry gangrene of the left index finger. LAB REVIEW: CBC showed a WBC of 13.2, hemoglobin 9.8, platelets are 340. BMP showed sodium 137, potassium 4.7, chloride 102, bicarbonate 29, BUN 64, creatinine is 8.5, iron is 48, TIBC is 141, transferrin saturation 34%, ferritin is 2353, albumin is 1.9. CURRENT INPATIENT MEDICATIONS: The patient's medications were all reviewed by me. There is no change in the medications today as compared with yesterday. ASSESSMENT/PLAN: 1. End-stage renal disease. The patient has been switched from peritoneal dialysis to hemodialysis now because he needs to be admitted at acute rehab. Continue current hemodialysis regimen. Next dialysis will be done tomorrow morning. 2. Anemia in end-stage renal disease. The patient is status post 2 units of PRBC transfusion. Iron levels are adequate. I have switched his Aranesp to 200 mcg IV with hemodialysis once a week. 3. Peripheral vascular disease. Status post right below-knee amputation. The patient is being followed by vascular surgery, and he is going to be transferred to acute rehab. 4. Diabetes mellitus, type 2, insulin dependent. Glucose levels are controlled. Continue current dose of insulin sliding scale and Levemir.
== END 2019-10-14 13:24 | DRG 239 ==
LOC: M OR 10:53 → M MSPAV 16:20
PROVIDERS: ADMIT Podiatrist Foot & Ankle Surgery; ATTEND Internal Medicine
PROC: 0Y6M0Z0 Detachment at Right Foot, Complete, Open Approach (ICD-10-PCS; principal; 2019-10-02 12:50)
PROC: 05V Upper Veins, Restriction (ICD-10-PCS; 2019-10-04)
PROC: 0Y6H0Z3 Detachment at Right Lower Leg, Low, Open Approach (ICD-10-PCS; 2019-10-06)
PROC: 30233N1 Transfusion of Nonautologous Red Blood Cells into Peripheral Vein, Percutaneous Approach (ICD-10-PCS; 2019-10-06)
PROC: 5A1D70Z Performance of Urinary Filtration, Intermittent, Less than 6 Hours Per Day (ICD-10-PCS; 2019-10-12)
DX: E11.52 Type 2 diabetes mellitus with diabetic peripheral angiopathy with gangrene (principal); N18.6 End stage renal disease; N25.81 Secondary hyperparathyroidism of renal origin; T82.898A Other specified complication of vascular prosthetic devices, implants and grafts, initial encounter; I96 Gangrene, not elsewhere classified; I13.2 Hypertensive heart and chronic kidney disease with heart failure and with stage 5 chronic kidney disease, or end stage renal disease; I50.32 Chronic diastolic (congestive) heart failure; E87.1 Hypo-osmolality and hyponatremia; E46 Unspecified protein-calorie malnutrition; Z87.891 Personal history of nicotine dependence; Z79.82 Long term (current) use of aspirin; Z79.4 Long term (current) use of insulin; E78.5 Hyperlipidemia, unspecified; H40.9 Unspecified glaucoma; D63.1 Anemia in chronic kidney disease; E11.319 Type 2 diabetes mellitus with unspecified diabetic retinopathy without macular edema; E11.21 Type 2 diabetes mellitus with diabetic nephropathy; E66.9 Obesity, unspecified; Z88.8 Allergy status to other drugs, medicaments and biological substances; D50.9 Iron deficiency anemia, unspecified; Z99.2 Dependence on renal dialysis; E87.6 Hypokalemia; D72.829 Elevated white blood cell count, unspecified; K59.00 Constipation, unspecified; E11.649 Type 2 diabetes mellitus with hypoglycemia without coma; Y83.2 Surgical operation with anastomosis, bypass or graft as the cause of abnormal reaction of the patient, or of later complication, without mention of misadventure at the time of the procedure

== ENCOUNTER 2019-10-14 11:59 | Inpatient (IN) | payer MEDICARE ==
[~2019-10-14] VITALS: Ht 177.8 cm; Wt 89.9 kg
[~2019-10-14 11:59] MED LIST changes: -D5W/0.2% SODIUM CHLORIDE 1,000 ML IV ONE; +PANTOPRAZOLE 40MG TAB (PROTONIX) PO SCH; -ceFAZolin SOD 2 GM in IV 1 EA IV ONE
[2019-10-14 13:45] VITALS: BP 160/80
[2019-10-14] MEDS ORDERED: oxyCODONE 5MG TAB PO PRN (13:45)
[2019-10-14] MEDS ORDERED: BISACODYL 10 MG SUPP PR PRN (13:45)
[2019-10-14] MEDS ORDERED: GLUCAGON FOR INJ 1 MG VIAL (J1610) SC PRN (13:45)
[2019-10-14] MEDS ORDERED: DEXTROSE 50% 50 ML SYRINGE IV PRN (13:45)
[2019-10-14] MEDS ORDERED: GLUCOSE 4 GM CHEW TABLET PO PRN (13:45)
[2019-10-14] MEDS ORDERED: ONDANSETRON 4 MG TAB (S0181) PO PRN (13:45)
--- NOTE | 2019-10-14 14:48 | HPEPDOC ---
Pelletising Extruder Operator Note DATE OF ADMISSION: 10-14-19 DATE OF SERVICE: 10-14-19 TIME OF ADMISSION: Please refer to physician's admission order. SOURCE OF ADMISSION INFORMATION: [facility] record CHIEF COMPLAINT: right BKA HISTORY OF PRESENT ILLNESS: 33M pmh ESRD on PD, HTN, DM with peripheral polyneuropathy who presented to [facility] ED on 10-02-19 following trans-metatarsal amputation of his right foot performed by Dr. Chowdary on 10-02-19 and was admitted for post-op recovery and noted to have wounds on his left hand. Vascular surgery was consulted for his left hand first digit gangrene for which he underwent banding of the left cephalic vein fistula and ligation of cephalic vein branches on 10-04-19 without complication and immediate revascularization. He was placed on broad spectrum IV antibiotics and his leukocytosis improved. He was followed closely by renal for his ESRD and eventually converted to hemodialysis with AVF placed in his LUE without complication. He was evaluated by therapy and found to have impairments in mobility and ADLS and deemed medically appropriate for discharge to ARU on 10-14-19. REVIEW OF SYSTEMS: The following is a completed review of systems and has been reviewed. Review of systems otherwise unremarkable. PAIN: Patient self reports no pain EYES: No recent vision changes. EARS, NOSE, & THROAT: No throat pain, or dysphagia, or rhinorrhea CARDIOVASCULAR: Denies chest pain or palpitations. PULMONARY: Denies shortness of breath GASTROINTESTINAL: Denies constipation/diarrhea GENITOURINARY:+oliguric MUSCULOSKELETAL: LLE weakness and right BKA NEUROLOGICAL: +peripheral polyneuropathy HEMATOLOGICAL: denies easy bruising SKIN: right BKA incision, left D1 gangrene, right heel ulcer PSYCHIATRIC: Unremarkable All other review of systems found to be negative. PAST MEDICAL HISTORY: as per hpi PAST SURGICAL HISTORY: Left AVF Abdominal peritoneal catheter ALLERGIES: Please see below. MEDICATIONS: Please see below. FAMILY HISTORY: cancer SOCIAL HISTORY: Ex smoker, no etoh/illicit drugs DIET: renal 1500cc fluid restrict PHYSICAL EXAMINATION: VITAL SIGNS: Please see below. GENERAL: Pleasant and cooperative. No acute distress. HEENT: PERRL. Extraocular movements intact. Clear conjunctiva CARDIOVASCULAR: Regular rate and rhythm. No murmurs, rubs, or gallops LUNGS: Clear to auscultation bilaterally. No wheezes. No rhonchi ABDOMEN: Soft, nontender, nondistended. Positive bowel sounds. Normal active bowel sounds, +peritoneal access NEUROLOGICAL: Alert and oriented times three. Cranial nerves II through XII grossly intact. Sensation nearly absent to light touch LLE and bilat fingertips EXTREMITIES: 4\5 strength bilateral upper extremities. 5\5 strength right hip flexion, knee extension . 4/5 strength in left hip flexion, knee extension, 3/5 ankle DF, 2/5 EHL. SKIN: right BKA incision with mild erythema, no induration, not warm/painful to touch, left heel blister, left hand D1 with distal tip gangrenous LABORATORY DATA: Please see below. IMAGING:Imaging documentation personally reviewed by record FUNCTIONAL STATUS: Premorbid: Modified Independent with all activities of daily life as well as mobility On Admission: Min-Mod assist for bed mobility, functional transfers, able to propel wheelchair stand-by assist, min-mod for dressing GOALS: Mod-I from wheelchair level for community distances, functional transfers (stand-pivot transfer), dressing, bathing, toileting, limb care, medical optimization, assess for DME needs ASSESSMENT:63-year-old M with past medical history of DM and ESRD who presents status post right BKA PLAN: 1. Rehab- PT advance functional transfers, maintain ROM/stretch/strengthen bilat LE, teach limb care OT- advance ADL training, strengthen/stretch/maintain ROM bilat UE, shoulder protection 2. Neuro: pmh DM with severe peripheral neuropathy with poor proprioception, c/u good glucose control 3. CArdiac: hx of HTN c/u Cardizem and daily weights for CHF, HLD c/u Zocor- medicine consulted to assist in management -PVD s/p right BKA c/u ASa and Plavix, f/u Dr. Andrew on d/c, consulted in-house 4. Resp: encourgae incentive spirometry 5. Endo: pmh DM c/u Levemir and ISS, adjust prn 6. ID: BKA incision with mild erythema, will start renally doses Keflex, and monitor for fever/leukocytosis/trend CRP 7.DVT ppx: heparin 8. GI ppx: patient refusing protonix 9. Pain: patient denies having any pain, tylenol prn 10. Renal: ESRD on HD //Mon, renal consulted 11. Dispo: TBD POST ADMISSION PHYSICIAN EVALUATION: Medical and functional status: Description of medical status, medical assessment: As above. Rehabilitation diagnosis and current and prior cold morbid medical conditions as above. Risk of complications and plans to mitigate them as above. Description of functional status current status is as above. Prior status as above. Status compared to preadmission: There are no clinically significant differences between the patient's current status and the information described on the preadmission screening document. Treatment plan anticipated: Treatment plan is as described above. Required disciplines including physical therapy, occupational therapy, others as noted above Intensity of services: 3 hours a day, 6 days a week. Special considerations: There are no specific special or safety considerations that would likely preclude immediate implementation of an intensive rehabilitation program or subsequently influence the plan of care ATTESTATION: Considering all the information above, it is my best judgment that this patient requires intensive rehabilitation therapy as described above and an inpatient hospital environment due to the complexity of nursing, medical, and rehabilitation needs required by the patient. Furthermore, this patient can reasonably be expected to participate in an benefit from an inpatient rehabilitation stay with an interdisciplinary team approach to the delivery of rehabilitation care under the direction and supervision of rehabilitation physician. PROGNOSIS: good ESTIMATED LENGTH OF STAY: 14-18 days. PROJECTED DISCHARGE DESTINATION: Home with family support and any durable medi isabella equipment required to increase functional safety and mobility TIME SPENT COUNSELING AND COORDINATING INITIAL CARE: Greater than 70 minutes. Vital Signs Vital Sign - Last 24 Hours 10/14/19 13:45 Temp 96.9 Pulse 88 Resp 18 B/P (MAP) 160/80 (106) Pulse Ox 98 O2 Delivery Room Air Home Medications Scheduled Aspirin (Aspir 81) 81 Mg Tablet.dr, 81 MG PO DAILY, (Reported) Atropine Sulfate (Atropine Sulfate) 1% 2ML Drops, 1 DROP OS DAILY, (Reported) Bimatoprost (Lumigan) 50 Drop/2.5 Ml Karla, 1 DROP OU QHS, (Reported) Brimonidine Tartrate/Timolol (Combigan 0.2%-0.5% Eye Drops) 5 Ml Drops, 1 DROP OU BID, (Reported) Brinzolamide (Azopt) 1% 10ML Drops.susp, 1 DROP OS BID, (Reported) Clopidogrel Bisulfate (Clopidogrel) 75 Mg Tablet, 75 MG PO DAILY, (Reported) Insulin Glargine (Lantus) 1 Units/0.01 Ml Susp, 35 UNITS SC QHS Insulin Human Lispro (Humalog) 1 Units/0.01 Ml Inj, 1 DOSE SC AC, (Reported) PER SLIDING SCALE Prednisolone Acetate (Prednisolone Acetate 1% Opth Susp) 5 Ml Drops.susp, 1 DROP OS BID, (Reported) Simvastatin (Simvastatin) 40 Mg Tab, 40 MG PO QHS, (Reported) Sucroferric Oxyhydroxide (Velphoro) 500 Mg Tab.chew, 500 MG PO WM, (Reported) Vit B Comp No.3/Folic/C/Biotin (Jaz-Basilio Rx Tablet) 1 Each Tablet, 1 TAB PO DAILY, (Reported) Allergies Coded Allergies: acetazolamide (Verified Adverse Reaction, Severe, CONVULSIONS, 10/02/19) A-FIB/CHADSVASC A-FIB History Current/History of A-Fib/PAF?: No MAURA MCKEON MD Oct 14, 2019 14:48
[2019-10-14] MEDS ORDERED: ACETAMINOPHEN 500 MG TAB PO SCH (16:00)
[2019-10-14] MEDS: SUCROFERRIC OXYHYDROXIDE 500MG CHEW TAB (VELPHORO) PO SCH (17:28)
[2019-10-14] MEDS: HumaLOG INSULIN (NovoLOG) PER UNIT SC SCH ×2 (17:30→20:59)
[2019-10-14] MEDS: REMEDY PHYTOPLEX Z-GUARD PASTE 113GM TUBE (FROM STOREROOM PRODUCT) TOP SCH ×2 (17:31→21:25)
[2019-10-14] MEDS: CEPHALEXIN 250 MG CAP PO SCH (17:31)
[2019-10-14 20:09] VITALS: BP 160/90
[2019-10-14] MEDS: LEVEMIR (INSULIN DETEMIR) 1 UNITS/0.01ML SC SCH (20:58)
[2019-10-14] MEDS: prednisoLONE ACET 1% OPHTH SUSP 5ML OS SCH (20:59)
[2019-10-14] MEDS: BRINZOLAMIDE 1 % OPHTH SUSP (AZOPT) 10ML OS SCH (20:59)
[2019-10-14] MEDS: HEPARIN SOD (PORCINE) 5000 UNITS/ML VIAL (J1644 PER 1000UNITS) SC SCH (20:59)
[2019-10-14] MEDS: DOCUSATE SODIUM 100 MG CAP PO SCH (20:59)
[2019-10-14] MEDS: SIMVASTATIN 40 MG TAB PO SCH (21:00)
[2019-10-14] MEDS: POTASSIUM CHLORIDE 10 MEQ SR TABLET PO SCH (21:00)
[2019-10-14] MEDS ORDERED: SENNA 8.6 MG TAB (SENOKOT) PO SCH (21:00)
[2019-10-14] MEDS ORDERED: SENNA 8.6 MG TAB (SENOKOT) PO PRN (21:00)
[2019-10-15 06:00] VITALS: BP 152/71
[2019-10-15 07:04] LABS: BASO # 0.1 10^3/uL (0.0-0.2); BASO % 0.9 % (0.0-1.0); EOS # 0.4 10^3/uL (0.0-0.5); EOS % 3.7 % (0.0-3.0); HEMATOCRIT 30.5 % (42.0-52.0); HEMOGLOBIN 9.8 g/dl (13.5-17.5); LYMPH # 1.7 10^3/uL (1.5-5.0); MEAN CORPUSCULAR HEMOGLOBIN 31.2 pg (27.0-33.0); MEAN CORPUSCULAR HGB CONC 32.1 g/dl (32.0-36.5); MEAN CORPUSCULAR VOLUME 97.1 fl (80.0-96.0); MONO % 9.1 % (0.0-5.0); NEUTROPHILS # 7.9 10^3/uL (1.5-8.5); NEUTROPHILS % 69.8 % (36.0-66.0); PLATELET COUNT, AUTOMATED 337 10^3/uL (150-450); RED BLOOD COUNT 3.14 10^6/uL (4.30-6.10); WHITE BLOOD COUNT 11.4 10^3/uL (4.0-10.0)
[2019-10-15 07:31] LABS: ALBUMIN 1.7 GM/DL (3.2-5.2); BILIRUBIN,TOTAL 0.4 MG/DL (0.2-1.0); CALCIUM LEVEL 8.7 MG/DL (8.8-10.2); CREATININE FOR GFR 9.92 MG/DL (0.70-1.30); GLOMERULAR FILTRATION RATE 5.7 (>49); POTASSIUM SERUM 5.3 MEQ/L (3.5-5.1); TOTAL PROTEIN 6.7 GM/DL (6.4-8.2)
--- NOTE | 2019-10-15 07:50 | IPNPDOC ---
Date Seen The patient was seen on 10/15/19. Progress Note Patient seen and examined. Doing well this morning. I discussed with Dr. Putnam yesterday about starting Keflex for what I suspect is superficial cellulitis of the right AKA around the incision. I took a look at his right AKA stump and the erythema that I suspect was a superficial cellulitis has dramatically improved since starting Keflex. There is still no drainage, which is a good sign that t his is just a mild cellulitis, and the erythema has receded considerably. The flap is still pink and viable. The incision is healing well. I thoroughly cleaned the incision and the skin and replaced a dressing. The patient tolerated this well. He is keeping his knee extended and shows no signs of contracture. Were pleased with this. I like him to be very careful during therapy with his stump, and he is agreeable. His hand is warm and well-perfused and his left index finger is still steadily improving. We will continue to follow this. Regarding his left upper extremity AV fistula, if the dialysis nurses are not available to access the fistula, and if I am not available to access it for than this afternoon due to cases in the operating room, then we will be happy to place a PermCath to make things easier. I'm hopeful they will be able to access the fistula however. The patient's white count is down to 11 today, but with the right a case a cellulitis, we still would prefer not to place a PermCath with any signs of infection is possible. However, I think the patient is improving and if we need to we certainly can place a PermCath if this is better for access on this hospitalization. VS, I&O, 24H, Gerardo Vital Signs/I&O Vital Signs Date Time Temp Pulse Resp B/P (MAP) Pulse Ox O2 Delivery O2 Flow Rate FiO2 10/15/19 06:00 97.0 80 17 152/71 (98) 97 Room Air I&O- Last 24 Hours up to 6 AM 10/15/19 05:59 Intake Total 240 ml Output Total 0 ml Balance 240 ml Laboratory Data 24H LABS Laboratory Tests 2 10/14/19 16:58: Bedside Glucose (Misc Panel) 203H 10/14/19 19:46: Bedside Glucose (Misc Panel) 256H 10/15/19 06:43: Immature Granulocyte % (Auto) 1.5, Neutrophils (%) (Auto) 69.8H, Lymphocytes (%) (Auto) 15.0L, Monocytes (%) (Auto) 9.1H, Eosinophils (%) (Auto) 3.7H, Basophils (%) (Auto) 0.9, Neutrophils # (Auto) 7.9, Lymphocytes # (Auto) 1.7, Monocytes # (Auto) 1.0H, Eosinophils # (Auto) 0.4, Basophils # (Auto) 0.1, Nucleated Red Blood Cells % (auto) 0.0, Anion Gap 7L, Glomerular Filtration Rate 5.7L, Calcium Level 8.7L, Total Bilirubin 0.4, Aspartate Amino Transf (AST/SGOT) 44H, Alanine Aminotransferase (ALT/SGPT) 26, Alkaline Phosphatase 422H, Total Protein 6.7, Albumin 1.7L, Albumin/Globulin Ratio 0.34L CBC/BMP Laboratory Tests 10/15/19 06:43 ZACARIAS PATRICK MD Oct 15, 2019 07:50
[2019-10-15] MEDS: SUCROFERRIC OXYHYDROXIDE 500MG CHEW TAB (VELPHORO) PO SCH ×3 (08:00→18:00)
[2019-10-15] MEDS: HEPARIN SOD (PORCINE) 5000 UNITS/ML VIAL (J1644 PER 1000UNITS) SC SCH ×2 (08:05→20:53)
[2019-10-15] MEDS: HumaLOG INSULIN (NovoLOG) PER UNIT SC SCH ×4 (08:05→20:59)
[2019-10-15] MEDS: DOCUSATE SODIUM 100 MG CAP PO SCH ×2 (08:05→20:53)
[2019-10-15] MEDS: ASPIRIN 81 MG ENTERIC TAB PO SCH (08:05)
[2019-10-15] MEDS: CLOPIDOGREL 75 MG TAB PO SCH (08:05)
[2019-10-15] MEDS: POTASSIUM CHLORIDE 10 MEQ SR TABLET PO SCH (08:06)
[2019-10-15] MEDS: prednisoLONE ACET 1% OPHTH SUSP 5ML OS SCH ×2 (08:07→20:54)
[2019-10-15] MEDS: REMEDY PHYTOPLEX Z-GUARD PASTE 113GM TUBE (FROM STOREROOM PRODUCT) TOP SCH ×3 (08:07→20:54)
[2019-10-15] MEDS: ATROPINE SULFATE 1% OP SOLN 2 ML BTL OS SCH (08:07)
[2019-10-15] MEDS: BRINZOLAMIDE 1 % OPHTH SUSP (AZOPT) 10ML OS SCH ×2 (08:07→20:54)
[2019-10-15] MEDS ORDERED: DARBEPOETIN 200MCG/0.4ML *DIALYSIS* SYRINGE (J0882 PER 1MCG) IV SCH (11:30)
--- NOTE | 2019-10-15 15:01 | ROOPDOC ---
[facility] Report Of Operation Report of Operation DATE OF PROCEDURE: 10/15/19 PREPROCEDURE DIAGNOSES: End-stage renal disease requiring access for dialysis POSTPROCEDURE DIAGNOSES: Same PROCEDURE: 1. Ultrasound-guided access right internal jugular vein 2. Placement of a 23 cm tunneled dual-lumen PermCath right internal jugular vein SURGEON: Zacarias Andrew MD ANESTHESIA: Local anesthesia 15 mL lidocaine with epinephrine. Fentanyl 25 g IV was used for analgesia, but no formal sedation was used today. The patient also received 2 g of Ancef IV placement of the catheter. INDICATION FOR PROCEDURE: Mr. Lawson is a 63-year-old gentleman with end-stage renal disease who usually dialyzes with peritoneal dialysis, but does have a l eft upper extremity brachiocephalic fistula as a backup access. He is now in rehabilitation status post a right below-knee amputation, and cannot be on peritoneal dialysis in rehabilitation, but unfortunately the dialysis nurses had difficulty with access of his left upper extremity AV fistula. Risks benefits and alternatives to a PermCath placement were explained and the patient is agreeable to proceed. Informed consent was obtained. INTERPRETATION: The catheter is in good position with no kinks in the catheter. It draws back and flushed easily. The tip is freely mobile at the SVC right atrial junction. There is no pneumothorax. It is okay to use the catheter for dialysis. REPORT OF OPERATION: Patient was brought to the angiographic suite in stable condition. His right neck and chest were prepped and draped in a sterile fashion. A timeout was performed. Local anesthesia was a mast maker to skin and subcutaneous tissue over the right chest just distal to the clavicle, upper over the clavicle to the right jugular access site. A microneedle was used to access the jugular vein under ultrasound guidance. Small incision was made at the [facility] site and a wire was passed through into the central system under fluoroscopic guidance. We exchanged the needle for micro-sheath and this passed easily over the wire. We then administered the patient's antibiotic and analgesia without difficulty. He tolerated both well. A J-wire was advanced into the SVC and then the IVC under fluoroscopic guidance. We removed the sheath and 2 dilators were passed sequentially over the wire using a Seldinger technique and a peel-away sheath was then placed over the wire. The inner cannula wire were removed. A small incision was made in the right chest distal to the clavicle and a 23 cm PermCath, dual-lumen, was tunneled from the right chest to the jugular access site until the cuff was within the subcutaneous tissue. The tips were then passed sterilely into the peel-away sheath and the peel-away sheath was removed. Both ports abdiel back and flushed easily. We then heparin locked both ports and appropriate caps were placed. The jugular access site was closed with deep and superficial dermal interrupted Monocryl sutures. Dermabond was placed at the skin is a final dressing. The chest exit site was closed with 2 interrupted Prolene sutures. 2 additional Prolene suture were used to secure the catheter to the chest wall. Sterile dressings were applied. Final imaging revealed the catheter to be in good position with no kinks in the catheter and the tip freely mobile at the SVC right atrial junction. No pneumothorax is present. The patient was then taken recovery and back upstairs in stable condition. There were no complications and he tolerated the procedure well. ESTIMATED BLOOD LOSS: Approximately 5 mL. COMPLICATIONS: None. PLAN: It is okay to use the catheter for dialysis. We'd like to remove the catheter soon as possible once the patient can resume peritoneal dialysis. ZACARIAS ANDREW MD Oct 15, 2019 15:01
--- NOTE | 2019-10-15 17:49 | IPN ---
DATE: 10/15/2019 SUBJECTIVE: The patient was seen and examined at the bedside today morning. He has been transferred to acute rehabilitation now. Today's is patient's regular day of dialysis. He will be dialyzed in the afternoon. He denies any active complaints. OBJECTIVE: VITAL SIGNS: Temperature is 97. The fundi blood pressure 152/71, pulse is 80, respiratory rate of 17, saturating 97% on room air. INTAKE AND OUTPUT: There is no urine output recorded. Weight in the bed scale was 98.2 kg yesterday. PHYSICAL EXAMINATION: GENERAL: The patient is awake, alert, oriented times three, sitting up in the sofa, no apparent distress. HEAD AND NECK EXAM: Extraocular muscles intact. Pupils equally round and reactive to light. He has decreased vision in both eyes. Mucous membranes are moist. Neck is supple. There is no jugular venous distention (JVD). CARDIOVASCULAR: S1, S2. Regular rate. Trace edema of the left lower extremity. RESPIRATORY: Chest is clear to auscultation bilaterally. Bilateral equal air entry. No rales or rhonchi. ABDOMEN: Soft, positive bowel sounds. Nontender. No organomegaly. He has a peritoneal dialysis (PD) catheter. Exit site is clean. MUSCULOSKELETAL: He has a right below-knee amputation, which is covered with a dressing. ARTERIOVENOUS (AV) AXIS: the patient has a left upper arm AV fistula with a weak thrill and bruit and I used the bedside ultrasound to marked the fistula axis areas for dialysis today in the afternoon. CENTRAL NERVOUS SYSTEM (NUT PICKER): No focal deficit. Power is 5/5 in bilateral upper extremities. LABORATORY REVIEW: Complete blood count (CBC) showed a WBC of 11.4, hemoglobin 9.8, platelets are 337. Basic metabolic panel (BMP) showed sodium 138, potassium 5.3, chloride 105, bicarbonate 26, BUN 75, creatinine is 9.9. AST 44, ALT 26, albumin 1.7. CURRENT INPATIENT MEDICATIONS: The patient's medications were all reviewed by me. The patient was still receiving potassium, which I have stopped because he is no longer getting peritoneal dialysis. He is getting Keflex 250 mg by mouth every 48 hours. Oxycodone has been stopped. Protonix has been stopped. ASSESSMENT AND PLAN: 1. End-stage renal disease. The patient is transiently being hemodialyzed because he cannot get peritoneal dialysis in the acute rehabilitation. Left upper arm AV fistula will be used today. If we cannot axis the fistula, then patient will need tunneled hemodialysis catheter. 2. Anemia in end-stage renal disease. Hemoglobin is 9.8. The patient has been started on Aranesp with dialysis. 3. Hyperkalemia. It is secondary to use of potassium in end-stage renal disease. The patient was needing potassium supplements when he was on peritoneal dialysis. At this point when he is getting hemodialysis, his potassium has been stopped. 4. Protein calorie malnutrition. The patient's albumin is low. I am going to start him on Nepro daily.
[2019-10-15 20:00] VITALS: BP 141/65
[2019-10-15] MEDS: SIMVASTATIN 40 MG TAB PO SCH (20:53)
[2019-10-15] MEDS: ACETAMINOPHEN 500 MG TAB PO PRN (20:53)
[2019-10-15] MEDS: LEVEMIR (INSULIN DETEMIR) 1 UNITS/0.01ML SC SCH (20:54)
[2019-10-16 05:56] VITALS: BP 150/80
[2019-10-16] MEDS: SUCROFERRIC OXYHYDROXIDE 500MG CHEW TAB (VELPHORO) PO SCH ×3 (07:06→17:24)
[2019-10-16] MEDS: ACETAMINOPHEN 500 MG TAB PO PRN ×2 (07:06→21:14)
[2019-10-16] MEDS: REMEDY PHYTOPLEX Z-GUARD PASTE 113GM TUBE (FROM STOREROOM PRODUCT) TOP SCH ×3 (09:00→21:15)
[2019-10-16] MEDS: HEPARIN SOD (PORCINE) 5000 UNITS/ML VIAL (J1644 PER 1000UNITS) SC SCH ×2 (09:47→21:14)
[2019-10-16] MEDS: HumaLOG INSULIN (NovoLOG) PER UNIT SC SCH ×4 (09:48→21:00)
[2019-10-16] MEDS: CLOPIDOGREL 75 MG TAB PO SCH (09:48)
[2019-10-16] MEDS: BRINZOLAMIDE 1 % OPHTH SUSP (AZOPT) 10ML OS SCH ×2 (09:49→21:14)
[2019-10-16] MEDS: DOCUSATE SODIUM 100 MG CAP PO SCH ×2 (09:49→21:14)
[2019-10-16] MEDS: ASPIRIN 81 MG ENTERIC TAB PO SCH (09:49)
[2019-10-16] MEDS: ATROPINE SULFATE 1% OP SOLN 2 ML BTL OS SCH (09:50)
[2019-10-16] MEDS: prednisoLONE ACET 1% OPHTH SUSP 5ML OS SCH ×2 (09:50→21:14)
[2019-10-16 11:22] LABS: BASO # 0.1 10^3/uL (0.0-0.2); BASO % 0.5 % (0.0-1.0); EOS # 0.2 10^3/uL (0.0-0.5); EOS % 1.6 % (0.0-3.0); HEMATOCRIT 32.2 % (42.0-52.0); HEMOGLOBIN 10.2 g/dl (13.5-17.5); LYMPH # 1.3 10^3/uL (1.5-5.0); LYMPH % 9.8 % (24.0-44.0); MEAN CORPUSCULAR HGB CONC 31.7 g/dl (32.0-36.5); MEAN CORPUSCULAR VOLUME 97.9 fl (80.0-96.0); MONO # 0.9 10^3/uL (0.0-0.8); NEUTROPHILS # 10.2 10^3/uL (1.5-8.5); NEUTROPHILS % 78.8 % (36.0-66.0); PLATELET COUNT, AUTOMATED 383 10^3/uL (150-450); RED BLOOD COUNT 3.29 10^6/uL (4.30-6.10); WHITE BLOOD COUNT 12.9 10^3/uL (4.0-10.0)
[2019-10-16 12:03] LABS: CALCIUM LEVEL 8.8 MG/DL (8.8-10.2); CREATININE FOR GFR 7.15 MG/DL (0.70-1.30); GLOMERULAR FILTRATION RATE 8.3 (>49); POTASSIUM SERUM 4.9 MEQ/L (3.5-5.1)
[2019-10-16 14:00] VITALS: BP 148/67
--- NOTE | 2019-10-16 14:20 | IPNPDOC ---
Text Note Date of Service The patient was seen on 10/16/19. NOTE Vascular surgery. Dr. Andrew Patient seen and examined. The patient was started on Keflex for some superficial cellulitis of the right AKA around the incision. The erythema is continuing to improve. There is still no drainage. Sutures and ghislaine are intact. The flap is still pink and viable. The incision is healing well. I thoroughly cleaned the incision and the skin and replaced a dressing. The patient tolerated this well. He is keeping his knee extended and shows no signs of contracture. His hand is warm and well-perfused and his left index finger was noted to have some scaling dry skin which was removed as per Dr. Anderw. There were also a couple of small abrasions on fingers 2 and 3 related to hitting his hand on door casing during therapy. Would recommend applying bacitracin to the abrasions on the fingers as well as the index finger wound daily. We are continuing to follow this. Regarding his left upper extremity AV fistula, the dialysis nurses were not able to access the fistula. The patient is status post PermCath placement as per Dr. Andrew 10/15/19. Continue with dialysis as per nephrology. The patient was noted to have ulceration of the left heel which is consistent with a pressure ulcer on exam today. We will plan to review the patient's last arterial ultrasound of the left lower extremity, Dr. Andrew will provide additional recommendations pending review. VS,Fishbone, I+O VS, Fishbone, I+O Laboratory Tests 10/16/19 11:11 Vital Signs Date Time Temp Pulse Resp B/P (MAP) Pulse Ox O2 Delivery O2 Flow Rate FiO2 10/16/19 14:00 97.3 73 17 148/67 (94) 97 Room Air I&O- Last 24 Hours up to 6 AM 10/16/19 05:59 Intake Total 120 ml Output Total 1000 ml Balance -880 ml Dulce Espinal Oct 16, 2019 14:20
--- NOTE | 2019-10-16 15:50 | IPNPDOC ---
Subjective Date Seen The patient was seen on 10/16/19. Subjective Chief Complaint/HPI Mr. Lawson is a 63-year-old male who was admitted to [facility] on October 02, following transmetatarsal amputation with eventual below knee amputation (October 06) of the right foot. Patient has also had issues with dry gangrene in the left foot for several weeks, he has had amputation of 2 of the toes with poor wound healing, and he has also undergone multiple angioplasties without success. While inpatient, he also underwent banding of the LUE AV fistula because of ischemia at the tip of the index finger. Patient has since been transferred to the acute rehabilitation unit on October 13. Patient is seen today during rehabilitation, at which he is reportedly progressing very well. He denied any new or worsening medical complaints at this time. General: Denies: Chills, Night Sweats, Fatigue, Malaise, Normal Appetite (appetite is slowly returning) Constitutional: Denies: Chills, Fever, Night Sweats Eyes: Denies: Pain ENT: Denies: Head Aches Skin: Reports: Other; Denies: Rash, Lesions Pulmonary: Denies: Dyspnea, Cough Cardiovascular: Denies: Chest Pain, Palpitations, Orthopnea, Paroxysmal Noc. Dyspnea, Edema, Lt Headedness Gastrointestinal: Denies: Nausea, Vomiting, Abdominal Pain, Diarrhea, Constipation Genitourinary: Denies: Dysuria Hematologic: Denies: Bruising Musculoskeletal: Denies: Neck Pain, Back Pain, Joint Pain, Muscle Pain, Spasms Neurological: Denies: Weakness, Numbness, Change in speech, Confusion Psych: Reports: Mood Normal Objective Physical Examination General Exam: Positive: Alert, Cooperative, No Acute Distress, Other (seen performing transfers between wheelchair and chair) Eye Exam: Positive: PERRLA, Conjunctiva & lids normal, EOMI; Negative: Sclera icteric ENT Exam: Positive: Atraumatic, Mucous membr. moist/pink, Pharynx Normal Neck Exam: Positive: Supple; Negative: thyromegaly Chest Exam: Positive: Clear to auscultation, Normal air movement Heart Exam: Positive: Rate Normal, Regular Rhythm, Normal S1, Normal S2, Murmurs (2/6 crescendo murmur ); Negative: Rubs Telemetry: Positive: No significant arrhythmia Abdomen Exam: Positive: Normal bowel sounds, Soft Extremity Exam: Positive: Other (right BKA bandaging in place. No signs of inflammation around surrounding skin); Negative: Clubbing, Cyanosis, Edema Skin Exam: Positive: Nl turgor and temperature; Negative: Rash, Breakdown Neuro Exam: Positive: Normal Speech Psych Exam: Positive: Mood NL Assessment /Plan Assessment Mr. Lawson is a 63-year-old male who was admitted to [facility] on October 02, following transmetatarsal amputation with eventual below knee amputation (October 06) of the right foot. Patient has also had issues with dry gangrene in the left foot for several weeks, he has had amputation of 2 of the toes with poor wound healing, and he has also undergone multiple a ngioplasties without success. While inpatient, he also underwent banding of the LUE AV fistula because of ischemia at the tip of the index finger. He has had a PermCath placed for dialysis per Dr. Andrew on October 14. Patient has since been transferred to the acute rehabilitation unit on October 14. Patient has a past medical history which includes: ESRD, hypertension, type 2 diabetes, anemia in chronic disease, peripheral vascular disease right BKA secondary to dry gangrene and poor wound healing. Patient is seen today during rehabilitation, at which he is reportedly progressing very well. He denied any new or worsening medical complaints at this time. #1. 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 Continues with rehabilitation per electrologist #2. End-stage renal disease. Patient has been switched from PD to HD due to his acute rehabilitation transfer. Hyperkalemia secondary to supplementation. Patient needed potassium while he was on PD. Those have now been stopped as he is on HD. Continued management per nephrology #3. Peripheral vascular disease Patient is being followed by Dr. Andrew, vascular surgery Prescribed Keflex for superficial cellulitis of the right BKA Continue Plavix, aspirin, statin #4 Anemia in chronic disease Patient received 2 units PRBCs while on the medical floor, since then H&H has been stable. Started on Aranesp with HD per nephrology #5 Hypertension. Continue with CCB. #6. Type 2 diabetes. Insulin dependent Continue with Levemir as prescribed with and sliding scale insulin before meals Plan/VTE VTE Prophylaxis Ordered?: Yes (HSQ) VS, I&O, 24H, Fishbone Vital Signs/I&O Vital Signs Date Time Temp Pulse Resp B/P (MAP) Pulse Ox O2 Delivery O2 Flow Rate FiO2 10/16/19 14:00 97.3 73 17 148/67 (94) 97 Room Air I&O- Last 24 Hours up to 6 AM 10/16/19 06:00 Intake Total 120 ml Output Total 1000 ml Balance -880 ml Laboratory Data 24H LABS Laboratory Tests 2 10/15/19 18:02: Bedside Glucose (Misc Panel) 147H 10/15/19 20:09: Bedside Glucose (Misc Panel) 175H 10/16/19 05:21: Bedside Glucose (Misc Panel) 238H 10/16/19 11:05: Bedside Glucose (Misc Panel) 276H 10/16/19 11:11: Immature Granulocyte % (Auto) 2.3, Neutrophils (%) (Auto) 78.8H, Lymphocytes (%) (Auto) 9.8L, Monocytes (%) (Auto) 7.0H, Eosinophils (%) (Auto) 1.6, Basophils (%) (Auto) 0.5, Neutrophils # (Auto) 10.2H, Lymphocytes # (Auto) 1.3L, Monocytes # (Auto) 0.9H, Eosinophils # (Auto) 0.2, Basophils # (Auto) 0.1, Nucleated Red Blood Cells % (auto) 0.0, Anion Gap 7L, Glomerular Filtration Rate 8.3L, Calcium Level 8.8 CBC/BMP Laboratory Tests 10/16/19 11:11 RAFA LAMA PA-C Oct 16, 2019 15:50
[2019-10-16] MEDS: POLYSPORIN TOPICAL OINTMENT 15GM TOP SCH (17:00)
[2019-10-16] MEDS: CEPHALEXIN 250 MG CAP PO SCH (17:25)
[2019-10-16 20:27] VITALS: BP 142/84
[2019-10-16] MEDS: LEVEMIR (INSULIN DETEMIR) 1 UNITS/0.01ML SC SCH (21:13)
[2019-10-16] MEDS: SIMVASTATIN 40 MG TAB PO SCH (21:14)
[2019-10-17 05:38] VITALS: BP 139/98
[2019-10-17] MEDS: SUCROFERRIC OXYHYDROXIDE 500MG CHEW TAB (VELPHORO) PO SCH ×3 (07:28→17:20)
[2019-10-17] MEDS: ACETAMINOPHEN 500 MG TAB PO PRN (07:28)
[2019-10-17 07:43] LABS: BASO # 0.1 10^3/uL (0.0-0.2); BASO % 0.6 % (0.0-1.0); EOS # 0.4 10^3/uL (0.0-0.5); EOS % 3.5 % (0.0-3.0); HEMATOCRIT 32.1 % (42.0-52.0); HEMOGLOBIN 10.2 g/dl (13.5-17.5); LYMPH # 1.9 10^3/uL (1.5-5.0); LYMPH % 17.8 % (24.0-44.0); MEAN CORPUSCULAR HEMOGLOBIN 30.9 pg (27.0-33.0); MEAN CORPUSCULAR HGB CONC 31.8 g/dl (32.0-36.5); MEAN CORPUSCULAR VOLUME 97.3 fl (80.0-96.0); MONO % 9.4 % (0.0-5.0); NEUTROPHILS # 7.2 10^3/uL (1.5-8.5); NEUTROPHILS % 67.6 % (36.0-66.0); PLATELET COUNT, AUTOMATED 363 10^3/uL (150-450); WHITE BLOOD COUNT 10.6 10^3/uL (4.0-10.0)
[2019-10-17] MEDS: HEPARIN SOD (PORCINE) 5000 UNITS/ML VIAL (J1644 PER 1000UNITS) SC SCH ×2 (08:13→20:35)
[2019-10-17] MEDS: ASPIRIN 81 MG ENTERIC TAB PO SCH (08:13)
[2019-10-17] MEDS: CLOPIDOGREL 75 MG TAB PO SCH (08:13)
[2019-10-17] MEDS: HumaLOG INSULIN (NovoLOG) PER UNIT SC SCH ×4 (08:14→20:34)
[2019-10-17] MEDS: prednisoLONE ACET 1% OPHTH SUSP 5ML OS SCH ×2 (08:14→20:39)
[2019-10-17] MEDS: ATROPINE SULFATE 1% OP SOLN 2 ML BTL OS SCH (08:14)
[2019-10-17] MEDS: BRINZOLAMIDE 1 % OPHTH SUSP (AZOPT) 10ML OS SCH ×2 (08:14→20:39)
[2019-10-17 08:15] LABS: C REACTIVE PROTEIN QUANTITATIV 6.15 MG/DL (0.00-0.30); CALCIUM LEVEL 8.8 MG/DL (8.8-10.2); CREATININE FOR GFR 8.28 MG/DL (0.70-1.30); POTASSIUM SERUM 4.5 MEQ/L (3.5-5.1)
[2019-10-17] MEDS: REMEDY PHYTOPLEX Z-GUARD PASTE 113GM TUBE (FROM STOREROOM PRODUCT) TOP SCH ×3 (08:15→20:12)
[2019-10-17] MEDS: POLYSPORIN TOPICAL OINTMENT 15GM TOP SCH ×2 (08:15→20:38)
[2019-10-17] MEDS: DOCUSATE SODIUM 100 MG CAP PO SCH ×2 (08:19→20:33)
--- NOTE | 2019-10-17 09:27 | IPNPDOC ---
Date Seen The patient was seen on 10/17/19. Progress Note Patient seen and examined. Doing well today. Up with occupational therapy during a shower and ADLs. His left hand is looking better today, and bacitracin applied to excoriation over the knuckles and around the distal tip near the gangrene. Radial pulses palpable, and fistula has a soft thrill. Right lower extremity BKA is looking better today, less erythema present. The skin edges are well appr oximated and healing, and no drainage is present. No fluctuance or induration is noted. The flap is pink and healthy. The stump was thoroughly cleaned and dried and dressings were reapplied. The patient tolerated this well. He has a blister pressure wound on the left posterior heel. 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 I discussed with the patient and his the risks benefits and alternatives to an arteriogram of the left lower extremity with an attempt to improve tibial artery flow. The patient is agreeable to proceed. He has therapy all day today and dialysis this afternoon, but we will try to work him into the schedule tomorrow morning if possible. He is agreeable to this plan. Informed consent was obtained. VS, I&O, 24H, Gerardo Vital Signs/I&O Vital Signs Date Time Temp Pulse Resp B/P (MAP) Pulse Ox O2 Delivery O2 Flow Rate FiO2 10/17/19 08:13 73 139/98 10/17/19 05:38 97.6 18 97 Room Air I&O- Last 24 Hours up to 6 AM 10/17/19 06:00 Intake Total 960 ml Balance 960 ml Laboratory Data 24H LABS Laboratory Tests 2 10/16/19 11:05: Bedside Glucose (Misc Panel) 276H 10/16/19 11:11: Immature Granulocyte % (Auto) 2.3, Neutrophils (%) (Auto) 78.8H, Lymphocytes (%) (Auto) 9.8L, Monocytes (%) (Auto) 7.0H, Eosinophils (%) (Auto) 1.6, Basophils (%) (Auto) 0.5, Neutrophils # (Auto) 10.2H, Lymphocytes # (Auto) 1.3L, Monocytes # (Auto) 0.9H, Eosinophils # (Auto) 0.2, Basophils # (Auto) 0.1, Nucleated Red Blood Cells % (auto) 0.0, Anion Gap 7L, Glomerular Filtration Rate 8.3L, Calcium Level 8.8 10/16/19 16:59: Bedside Glucose (Misc Panel) 151H 10/16/19 20:01: Bedside Glucose (Misc Panel) 231H 10/17/19 05:52: Bedside Glucose (Misc Panel) 128H 10/17/19 07:16: Immature Granulocyte % (Auto) 1.1, Neutrophils (%) (Auto) 67.6H, Lymphocytes (%) (Auto) 17.8L, Monocytes (%) (Auto) 9.4H, Eosinophils (%) (Auto) 3.5H, Basophils (%) (Auto) 0.6, Neutrophils # (Auto) 7.2, Lymphocytes # (Auto) 1.9, Monocytes # (Auto) 1.0H, Eosinophils # (Auto) 0.4, Basophils # (Auto) 0.1, Nucleated Red Blood Cells % (auto) 0.0, Anion Gap 5L, Glomerular Filtration Rate 7.0L, Calcium Level 8.8, C-Reactive Protein, Quantitative 6.15H 10/17/19 09:17: Bedside Glucose (Misc Panel) 200H CBC/BMP Laboratory Tests 10/16/19 11:11 10/17/19 07:16 ZACARIAS PATRICK MD Oct 17, 2019 09:27
[2019-10-17] MEDS ORDERED: HEPARIN 1,000 UNITS/ML 10ML VIAL (FOR RADIOLOGY& DIALYSIS ONLY)(J1644-10) IV ONE (12:00)
[2019-10-17] MEDS ORDERED: HEPARIN 1,000 UNITS/ML 10ML VIAL (FOR RADIOLOGY& DIALYSIS ONLY)(J1644-10) XX ONE (12:00)
--- NOTE | 2019-10-17 12:22 | IPNPDOC ---
PM&R Progress Note DATE OF SERVICE: Oct 15, 2019 Mechanical Product Engineer Progress Note Subjective; Patient reporting he feels well and is working on transfers in therapy. REVIEW OF SYSTEMS: The following is a completed review of systems and has been reviewed. Review of systems otherwise unremarkable. PAIN: Patient self reports no pain EYES: No recent vision changes. EARS, NOSE, & THROAT: No throat pain, or dysphagia, or rhinorrhea CARDIOVASCULAR: Denies chest pain or palpitations. PULMONARY: Denies shortness of breath GASTROINTESTINAL: Denies constipation/diarrhea GENITOURINARY:+oliguric MUSCULOSKELETAL: LLE weakness and right BKA NEUROLOGICAL: +peripheral polyneuropathy HEMATOLOGICAL: denies easy bruising SKIN: right BKA incision, left D1 gangrene, right heel ulcer PSYCHIATRIC: Unremarkable All other review of systems found to be negative. PHYSICAL EXAMINATION: VITAL SIGNS: Please see below. GENERAL: Pleasant and cooperative. No acute distress. HEENT: PERRL. Extraocular movements intact. Clear conjunctiva CARDIOVASCULAR: Regular rate and rhythm. No murmurs, rubs, or gallops LUNGS: Clear to auscultation bilaterally. No wheezes. No rhonchi ABDOMEN: Soft, nontender, nondistended. Positive bowel sounds. Normal active bowel sounds, +peritoneal access NEUROLOGICAL: Alert and oriented times three. Cranial nerves II through XII grossly intact. Sensation nearly absent to light touch LLE and bilat fingertips EXTREMITIES: 4\5 strength bilateral upper extremities. 5\5 strength right hip flexion, knee extension . 4/5 strength in left hip flexion, knee extension, 3/5 ankle DF, 2/5 EHL. SKIN: right BKA incision with mild erythema, no induration, not warm/painful to touch, left heel blister, left hand D1 with distal tip gangrenous ASSESSMENT:63-year-old M with past medical history of DM and ESRD who presents status post right BKA PLAN: 1. Rehab- PT advance functional transfers, maintain ROM/stretch/strengthen bilat LE, teach limb care OT- advance ADL training, strengthen/stretch/maintain ROM bilat UE, shoulder protection 2. Neuro: pmh DM with severe peripheral neuropathy with poor proprioception, c/u good glucose control 3. CArdiac: hx of HTN c/u Cardizem and daily weights for CHF, HLD c/u Zocor- medicine consulted to assist in management -PVD s/p right BKA c/u ASa and Plavix, f/u Dr. Andrew on d/c, consulted in- house 4. Resp: encourgae incentive spirometry 5. Endo: pmh DM c/u Levemir and ISS, adjust prn 6. ID: BKA incision with mild erythema, c/u renally dosed Keflex, and monitor for fever/leukocytosis/trend CRP 7.DVT ppx: heparin 8. GI ppx: patient refusing protonix 9. Pain: patient denies having any pain, tylenol prn 10. Renal: ESRD on HD //Mon, renal consulted- permacath placed today 11. Dispo: TBD Allergies Coded Allergies: acetazolamide (Verified Adverse Reaction, Severe, CONVULSIONS, 10/02/19) Vital Signs Vital Signs Date Time Temp Pulse Resp B/P (MAP) Pulse Ox O2 Delivery O2 Flow Rate FiO2 10/17/19 08:13 73 139/98 10/17/19 05:38 97.6 18 97 Room Air Laboratory Data CBC/BMP Laboratory Tests 10/17/19 07:16 Labs 24H Laboratory Tests 2 10/16/19 16:59: Bedside Glucose (Misc Panel) 151H 10/16/19 20:01: Bedside Glucose (Misc Panel) 231H 10/17/19 05:52: Bedside Glucose (Misc Panel) 128H 10/17/19 07:16: Immature Granulocyte % (Auto) 1.1, Neutrophils (%) (Auto) 67.6H, Lymphocytes (%) (Auto) 17.8L, Monocytes (%) (Auto) 9.4H, Eosinophils (%) (Auto) 3.5H, Basophils (%) (Auto) 0.6, Neutrophils # (Auto) 7.2, Lymphocytes # (Auto) 1.9, Monocytes # (Auto) 1.0H, Eosinophils # (Auto) 0.4, Basophils # (Auto) 0.1, Nucleated Red Blood Cells % (auto) 0.0, Anion Gap 5L, Glomerular Filtration Rate 7.0L, Calcium Level 8.8, C-Reactive Protein, Quantitative 6.15H 10/17/19 09:17: Bedside Glucose (Misc Panel) 200H 10/17/19 11:44: Bedside Glucose (Misc Panel) 197H Current Medications Current Medications Current Medications Medications (Trade) Dose Ordered Sig/Micheline Route PRN Reason Start Time Stop Time Status Last Admin Dose Admin Acetaminophen (Tylenol Tab) 1,000 mg TID PO 10/14/19 16:00 10/14/19 17:59 DC Acetaminophen (Tylenol Tab) 1,000 mg TID PRN PO fever/pain 10/14/19 18:00 10/17/19 07:28 Aspirin (Ecotrin) 81 mg DAILY PO 10/15/19 09:00 10/17/19 08:13 Atropine Sulfate (Isopto Atropine 1%) 1 drop DAILY OS 10/15/19 09:00 10/17/19 08:14 Bacitracin/ Polymyxin B Sulfate (Polysporin Top Oint) clean left hand knuck... BID TOP 10/16/19 17:00 10/17/19 08:15 Bisacodyl (Dulcolax Suppository) 10 mg DAILYPRN PRN CO CONSTIPATION 10/14/19 13:45 Brinzolamide (Azopt) 1 drop BID OS 10/14/19 21:00 10/17/19 08:14 Cephalexin Monohydrate (Keflex) 250 mg Q48H PO 10/14/19 16:00 10/20/19 16:01 10/16/19 17:25 Clopidogrel Bisulfate (PLAVix) 75 mg DAILY PO 10/15/19 09:00 10/17/19 08:13 Darbepoetin Gary (Aranesp (Dialysis Use)) 200 mcg HD IV 10/15/19 11:30 Dextrose (Dextrose 50%) 25 ml ASDIRECTED PRN IV SEE LABEL COMMENTS 10/14/19 13:45 Diltiazem HCl (Cardizem) 60 mg DAILY PO 10/15/19 09:00 10/17/19 08:13 Docusate Sodium (Colace) 100 mg BID PO 10/14/19 21:00 10/16/19 21:14 Glucagon (Glucagon) 1 mg ASDIRECTED PRN SC SEE LABEL COMMENTS 10/14/19 13:45 Glucose (Glucose) 16 GM ASDIRECTED PRN PO SEE LABEL COMMENTS 10/14/19 13:45 Heparin Sodium (Porcine) (Heparin) 5,000 units Q12H SC 10/14/19 21:00 10/17/19 08:13 Insulin Detemir (Levemir Insulin) 35 units QHS SC 10/14/19 21:00 10/16/19 11:00 DC 10/15/19 20:54 Insulin Detemir (Levemir Insulin) 40 units QHS SC 10/16/19 21:00 10/16/19 21:13 Insulin Human Lispro (HumaLOG INSULIN) SEE PROTOCOL TABLE AC SC 10/14/19 17:30 10/17/19 08:14 Insulin Human Lispro (HumaLOG INSULIN) SEE PROTOCOL TABLE QHS SC 10/14/19 21:00 10/14/19 20:59 Ondansetron HCl (Zofran) 4 mg Q6HP PRN PO NAUSEA 10/14/19 13:45 Oxycodone HCl (Roxicodone, Oxyir) 5 mg Q4HP PRN PO PAIN 10/14/19 13:45 10/14/19 14:33 DC Pantoprazole Sodium (Protonix) 40 mg DAILY PO 10/14/19 09:00 10/14/19 17:59 DC Potassium Chloride (Micro-K Extencaps) 20 meq BID PO 10/14/19 21:00 10/15/19 11:28 DC 10/14/19 21:00 Prednisolone Acetate (Predforte 1% Ophth Susp) 1 drop BID OS 10/14/19 21:00 10/17/19 08:14 Senna (Senokot) 1 tab QHS PO 10/14/19 21:00 10/14/19 14:33 DC Senna (Senokot) 1 tab QHS PRN PO constipation 10/14/19 21:00 Simvastatin (Zocor) 40 mg QHS PO 10/14/19 21:00 10/16/19 21:14 Sucroferric Oxyhydroxide (Velphoro) 500 mg WM PO 10/14/19 18:00 10/17/19 07:28 MAURA MCKEON MD Oct 17, 2019 12:22
--- NOTE | 2019-10-17 12:23 | IPNPDOC ---
PM&R Progress Note DATE OF SERVICE: Oct 16, 2019 Household Manager Progress Note Subjective; Patient denies having any pain, states he gets a little light headed with hemodialysis, and agrees to avoid wearing his sneaker on the left foot and stick to a post-op shoe to avoid putting pressure on his left heal. REVIEW OF SYSTEMS: The following is a completed review of systems and has been reviewed. Review of systems otherwise unremarkable. PAIN: Patient self reports no pain EYES: No recent vision changes. EARS, NOSE, & THROAT: No throat pain, or dysphagia, or rhinorrhea CARDIOVASCULAR: Denies chest pain or palpitations. PULMONARY: Denies shortness of breath GASTROINTESTINAL: Denies constipation/diarrhea GENITOURINARY:+oliguric MUSCULOSKELETAL: LLE weakness and right BKA NEUROLOGICAL: +peripheral polyneuropathy HEMATOLOGICAL: denies easy bruising SKIN: right BKA incision, left D1 gangrene, right heel ulcer PSYCHIATRIC: Unremarkable All other review of systems found to be negative. PHYSICAL EXAMINATION: VITAL SIGNS: Please see below. GENERAL: Pleasant and cooperative. No acute distress. HEENT: PERRL. Extraocular movements intact. Clear conjunctiva CARDIOVASCULAR: Regular rate and rhythm. No murmurs, rubs, or gallops LUNGS: Clear to auscultation bilaterally. No wheezes. No rhonchi ABDOMEN: Soft, nontender, nondistended. Positive bowel sounds. Normal active bowel sounds, +peritoneal access NEUROLOGICAL: Alert and oriented times three. Cranial nerves II through XII grossly intact. Sensation nearly absent to light touch LLE and bilat fingertips EXTREMITIES: 4\5 strength bilateral upper extremities. 5\5 strength right hip flexion, knee extension . 4/5 strength in left hip flexion, knee extension, 3/5 ankle DF, 2/5 EHL. SKIN: right BKA incision with mild erythema, no induration, not warm/painful to touch, left heel blister, left hand D1 with distal tip gangrenous ASSESSMENT:63-year-old M with past medical history of DM and ESRD who presents status post right BKA PLAN: 1. Rehab- PT advance functional transfers, maintain ROM/stretch/strengthen bilat LE, teach limb care OT- advance ADL training, strengthen/stretch/maintain ROM bilat UE, shoulder protection 2. Neuro: pmh DM with severe peripheral neuropathy with poor proprioception, c/u good glucose control 3. CArdiac: hx of HTN c/u Cardizem and daily weights for CHF, HLD c/u Zocor- medicine consulted to assist in management -PVD s/p right BKA c/u ASa and Plavix, f/u Dr. Andrew on d/c, consulted in- house, recs appreciated 4. Resp: encourgae incentive spirometry 5. Endo: pmh DM c/u Levemir and ISS, adjust prn 6. ID: BKA incision with mild erythema, c/u renally dosed Keflex, and monitor for fever/leukocytosis/trend CRP 7.DVT ppx: heparin 8. GI ppx: patient refusing protonix 9. Pain: patient denies having any pain, tylenol prn 10. Renal: ESRD on HD //Mon, renal consulted- permacath placed 11. Dispo: TBD Allergies Coded Allergies: acetazolamide (Verified Adverse Reaction, Severe, CONVULSIONS, 10/02/19) Vital Signs Vital Signs Date Time Temp Pulse Resp B/P (MAP) Pulse Ox O2 Delivery O2 Flow Rate FiO2 10/17/19 08:13 73 139/98 10/17/19 05:38 97.6 18 97 Room Air Laboratory Data CBC/BMP Laboratory Tests 10/17/19 07:16 Labs 24H Laboratory Tests 2 10/16/19 16:59: Bedside Glucose (Misc Panel) 151H 10/16/19 20:01: Bedside Glucose (Misc Panel) 231H 10/17/19 05:52: Bedside Glucose (Misc Panel) 128H 10/17/19 07:16: Immature Granulocyte % (Auto) 1.1, Neutrophils (%) (Auto) 67.6H, Lymphocytes (%) (Auto) 17.8L, Monocytes (%) (Auto) 9.4H, Eosinophils (%) (Auto) 3.5H, Basophils (%) (Auto) 0.6, Neutrophils # (Auto) 7.2, Lymphocytes # (Auto) 1.9, Monocytes # (Auto) 1.0H, Eosinophils # (Auto) 0.4, Basophils # (Auto) 0.1, Nucleated Red Blood Cells % (auto) 0.0, Anion Gap 5L, Glomerular Filtration Rate 7.0L, Calcium Level 8.8, C-Reactive Protein, Quantitative 6.15H 10/17/19 09:17: Bedside Glucose (Misc Panel) 200H 10/17/19 11:44: Bedside Glucose (Misc Panel) 197H Current Medications Current Medications Current Medications Medications (Trade) Dose Ordered Sig/Micheline Route PRN Reason Start Time Stop Time Status Last Admin Dose Admin Acetaminophen (Tylenol Tab) 1,000 mg TID PO 10/14/19 16:00 10/14/19 17:59 DC Acetaminophen (Tylenol Tab) 1,000 mg TID PRN PO fever/pain 10/14/19 18:00 10/17/19 07:28 Aspirin (Ecotrin) 81 mg DAILY PO 10/15/19 09:00 10/17/19 08:13 Atropine Sulfate (Isopto Atropine 1%) 1 drop DAILY OS 10/15/19 09:00 10/17/19 08:14 Bacitracin/ Polymyxin B Sulfate (Polysporin Top Oint) clean left hand knuck... BID TOP 10/16/19 17:00 10/17/19 08:15 Bisacodyl (Dulcolax Suppository) 10 mg DAILYPRN PRN [place] CONSTIPATION 10/14/19 13:45 Brinzolamide (Azopt) 1 drop BID OS 10/14/19 21:00 10/17/19 08:14 Cephalexin Monohydrate (Keflex) 250 mg Q48H PO 10/14/19 16:00 10/20/19 16:01 10/16/19 17:25 Clopidogrel Bisulfate (PLAVix) 75 mg DAILY PO 10/15/19 09:00 10/17/19 08:13 Darbepoetin Gary (Aranesp (Dialysis Use)) 200 mcg HD IV 10/15/19 11:30 Dextrose (Dextrose 50%) 25 ml ASDIRECTED PRN IV SEE LABEL COMMENTS 10/14/19 13:45 Diltiazem HCl (Cardizem) 60 mg DAILY PO 10/15/19 09:00 10/17/19 08:13 Docusate Sodium (Colace) 100 mg BID PO 10/14/19 21:00 10/16/19 21:14 Glucagon (Glucagon) 1 mg ASDIRECTED PRN SC SEE LABEL COMMENTS 10/14/19 13:45 Glucose (Glucose) 16 GM ASDIRECTED PRN PO SEE LABEL COMMENTS 10/14/19 13:45 Heparin Sodium (Porcine) (Heparin) 5,000 units Q12H SC 10/14/19 21:00 10/17/19 08:13 Insulin Detemir (Levemir Insulin) 35 units QHS SC 10/14/19 21:00 10/16/19 11:00 DC 10/15/19 20:54 Insulin Detemir (Levemir Insulin) 40 units QHS SC 10/16/19 21:00 10/16/19 21:13 Insulin Human Lispro (HumaLOG INSULIN) SEE PROTOCOL TABLE AC SC 10/14/19 17:30 10/17/19 08:14 Insulin Human Lispro (HumaLOG INSULIN) SEE PROTOCOL TABLE QHS SC 10/14/19 21:00 10/14/19 20:59 Ondansetron HCl (Zofran) 4 mg Q6HP PRN PO NAUSEA 10/14/19 13:45 Oxycodone HCl (Roxicodone, Oxyir) 5 mg Q4HP PRN PO PAIN 10/14/19 13:45 10/14/19 14:33 DC Pantoprazole Sodium (Protonix) 40 mg DAILY PO 10/14/19 09:00 10/14/19 17:59 DC Potassium Chloride (Micro-K Extencaps) 20 meq BID PO 10/14/19 21:00 10/15/19 11:28 DC 10/14/19 21:00 Prednisolone Acetate (Predforte 1% Ophth Susp) 1 drop BID OS 10/14/19 21:00 10/17/19 08:14 Senna (Senokot) 1 tab QHS PO 10/14/19 21:00 10/14/19 14:33 DC Senna (Senokot) 1 tab QHS PRN PO constipation 10/14/19 21:00 Simvastatin (Zocor) 40 mg QHS PO 10/14/19 21:00 10/16/19 21:14 Sucroferric Oxyhydroxide (Velphoro) 500 mg WM PO 10/14/19 18:00 10/17/19 07:28 MAURA MCKEON MD Oct 17, 2019 12:23
--- NOTE | 2019-10-17 12:25 | IPNPDOC ---
PM&R Progress Note DATE OF SERVICE: Oct 17, 2019 Behavioral Services Tech Progress Note Subjective; Patient reporting he has no pain, no fevers or chills. REVIEW OF SYSTEMS: The following is a completed review of systems and has been reviewed. Review of systems otherwise unremarkable. PAIN: Patient self reports no pain EYES: No recent vision changes. EARS, NOSE, & THROAT: No throat pain, or dysphagia, or rhinorrhea CARDIOVASCULAR: Denies chest pain or palpitations. PULMONARY: Denies shortness of breath GASTROINTESTINAL: Denies constipation/diarrhea GENITOURINARY:+oliguric MUSCULOSKELETAL: LLE weakness and right BKA NEUROLOGICAL: +peripheral polyneuropathy HEMATOLOGICAL: denies easy bruising SKIN: right BKA incision, left D1 gangrene, right heel ulcer PSYCHIATRIC: Unremarkable All other review of systems found to be negative. PHYSICAL EXAMINATION: VITAL SIGNS: Please see below. GENERAL: Pleasant and cooperative. No acute distress. HEENT: PERRL. Extraocular movements intact. Clear conjunctiva CARDIOVASCULAR: Regular rate and rhythm. No murmurs, rubs, or gallops LUNGS: Clear to auscultation bilaterally. No wheezes. No rhonchi ABDOMEN: Soft, nontender, nondistended. Positive bowel sounds. Normal active bowel sounds, +peritoneal access NEUROLOGICAL: Alert and oriented times three. Cranial nerves II through XII grossly intact. Sensation nearly absent to light touch LLE and bilat fingertips EXTREMITIES: 4\5 strength bilateral upper extremities. 5\5 strength right hip flexion, knee extension . 4/5 strength in left hip flexion, knee extension, 3/5 ankle DF, 2/5 EHL. SKIN: right BKA incision with mild erythema, no induration, not warm/painful to touch, left heel blister, left hand D1 with distal tip gangrenous left hand PIP joint with minor dried lacerations on them ASSESSMENT:63-year-old M with past medical history of DM and ESRD who presents status post right BKA PLAN: 1. Rehab- PT advance functional transfers, maintain ROM/stretch/strengthen bilat LE, teach limb care OT- advance ADL training, strengthen/stretch/maintain ROM bilat UE, shoulder protection 2. Neuro: pmh DM with severe peripheral neuropathy with poor proprioception, c/u good glucose control 3. CArdiac: hx of HTN c/u Cardizem and daily weights for CHF, HLD c/u Zocor- medicine consulted to assist in management -PVD s/p right BKA c/u ASa and Plavix, f/u Dr. Andrew on d/c, consulted in- house, plan for arteriogram with angioplasty/stenting tomorrow 4. Resp: encourgae incentive spirometry 5. Endo: pmh DM c/u Levemir and ISS, adjust prn 6. ID: BKA incision with mild erythema, c/u renally dosed Keflex, and monitor for fever/leukocytosis/trend CRP 7.DVT ppx: heparin 8. GI ppx: patient refusing protonix 9. Pain: patient denies having any pain, tylenol prn 10. Renal: ESRD on HD //Mon, renal consulted- permacath placed 11. Skin: added abcitracin to left hand scabs, c/u bilat limb care per instructions 12. Dispo: TBD Allergies Coded Allergies: acetazolamide (Verified Adverse Reaction, Severe, CONVULSIONS, 10/02/19) Vital Signs Vital Signs Date Time Temp Pulse Resp B/P (MAP) Pulse Ox O2 Delivery O2 Flow Rate FiO2 10/17/19 08:13 73 139/98 10/17/19 05:38 97.6 18 97 Room Air Laboratory Data CBC/BMP Laboratory Tests 10/17/19 07:16 Labs 24H Laboratory Tests 2 10/16/19 16:59: Bedside Glucose (Misc Panel) 151H 10/16/19 20:01: Bedside Glucose (Misc Panel) 231H 10/17/19 05:52: Bedside Glucose (Misc Panel) 128H 10/17/19 07:16: Immature Granulocyte % (Auto) 1.1, Neutrophils (%) (Auto) 67.6H, Lymphocytes (%) (Auto) 17.8L, Monocytes (%) (Auto) 9.4H, Eosinophils (%) (Auto) 3.5H, Basophils (%) (Auto) 0.6, Neutrophils # (Auto) 7.2, Lymphocytes # (Auto) 1.9, Monocytes # (Auto) 1.0H, Eosinophils # (Auto) 0.4, Basophils # (Auto) 0.1, Nucleated Red Blood Cells % (auto) 0.0, Anion Gap 5L, Glomerular Filtration Rate 7.0L, Calcium Level 8.8, C-Reactive Protein, Quantitative 6.15H 10/17/19 09:17: Bedside Glucose (Misc Panel) 200H 10/17/19 11:44: Bedside Glucose (Misc Panel) 197H Current Medications Current Medications Current Medications Medications (Trade) Dose Ordered Sig/Micheline Route PRN Reason Start Time Stop Time Status Last Admin Dose Admin Acetaminophen (Tylenol Tab) 1,000 mg TID PO 10/14/19 16:00 10/14/19 17:59 DC Acetaminophen (Tylenol Tab) 1,000 mg TID PRN PO fever/pain 10/14/19 18:00 10/17/19 07:28 Aspirin (Ecotrin) 81 mg DAILY PO 10/15/19 09:00 10/17/19 08:13 Atropine Sulfate (Isopto Atropine 1%) 1 drop DAILY OS 10/15/19 09:00 10/17/19 08:14 Bacitracin/ Polymyxin B Sulfate (Polysporin Top Oint) clean left hand knuck... BID TOP 10/16/19 17:00 10/17/19 08:15 Bisacodyl (Dulcolax Suppository) 10 mg DAILYPRN PRN NE CONSTIPATION 10/14/19 13:45 Brinzolamide (Azopt) 1 drop BID OS 10/14/19 21:00 10/17/19 08:14 Cephalexin Monohydrate (Keflex) 250 mg Q48H PO 10/14/19 16:00 10/20/19 16:01 10/16/19 17:25 Clopidogrel Bisulfate (PLAVix) 75 mg DAILY PO 10/15/19 09:00 10/17/19 08:13 Darbepoetin Gary (Aranesp (Dialysis Use)) 200 mcg HD IV 10/15/19 11:30 Dextrose (Dextrose 50%) 25 ml ASDIRECTED PRN IV SEE LABEL COMMENTS 10/14/19 13:45 Diltiazem HCl (Cardizem) 60 mg DAILY PO 10/15/19 09:00 10/17/19 08:13 Docusate Sodium (Colace) 100 mg BID PO 10/14/19 21:00 10/16/19 21:14 Glucagon (Glucagon) 1 mg ASDIRECTED PRN SC SEE LABEL COMMENTS 10/14/19 13:45 Glucose (Glucose) 16 GM ASDIRECTED PRN PO SEE LABEL COMMENTS 10/14/19 13:45 Heparin Sodium (Porcine) (Heparin) 5,000 units Q12H SC 10/14/19 21:00 10/17/19 08:13 Insulin Detemir (Levemir Insulin) 35 units QHS SC 10/14/19 21:00 10/16/19 11:00 DC 10/15/19 20:54 Insulin Detemir (Levemir Insulin) 40 units QHS SC 10/16/19 21:00 10/16/19 21:13 Insulin Human Lispro (HumaLOG INSULIN) SEE PROTOCOL TABLE AC SC 10/14/19 17:30 10/17/19 08:14 Insulin Human Lispro (HumaLOG INSULIN) SEE PROTOCOL TABLE QHS SC 10/14/19 21:00 10/14/19 20:59 Ondansetron HCl (Zofran) 4 mg Q6HP PRN PO NAUSEA 10/14/19 13:45 Oxycodone HCl (Roxicodone, Oxyir) 5 mg Q4HP PRN PO PAIN 10/14/19 13:45 10/14/19 14:33 DC Pantoprazole Sodium (Protonix) 40 mg DAILY PO 10/14/19 09:00 10/14/19 17:59 DC Potassium Chloride (Micro-K Extencaps) 20 meq BID PO 10/14/19 21:00 10/15/19 11:28 DC 10/14/19 21:00 Prednisolone Acetate (Predforte 1% Ophth Susp) 1 drop BID OS 10/14/19 21:00 10/17/19 08:14 Senna (Senokot) 1 tab QHS PO 10/14/19 21:00 10/14/19 14:33 DC Senna (Senokot) 1 tab QHS PRN PO constipation 10/14/19 21:00 Simvastatin (Zocor) 40 mg QHS PO 10/14/19 21:00 10/16/19 21:14 Sucroferric Oxyhydroxide (Velphoro) 500 mg WM PO 10/14/19 18:00 10/17/19 07:28 MAURA MCKEON MD Oct 17, 2019 12:24
[2019-10-17 17:00] VITALS: BP 166/78
[2019-10-17 20:00] VITALS: BP 158/70
--- NOTE | 2019-10-17 20:24 | IPN ---
DATE: 10/17/2019 SUBJECTIVE: The patient was seen and examined at the bedside today morning in the rehabilitation unit. He had just come back after exercise and he reported he was having headache and his blood pressure was high. Today is the patient's regular day of dialysis. OBJECTIVE: VITAL SIGNS: Temperature is 97.6 degrees Fahrenheit, blood pressure was 165/85, pulse is 73, respiratory rate of 18, saturating 97% on room air. INTAKE AND OUTPUT: There is no urine output recorded. Weight in the bed scale is 96.2 kg. PHYSICAL EXAMINATION: GENERAL: The patient is awake, alert, oriented times three, sitting up in the wheelchair, no apparent distress. HEAD AND NECK EXAM: Extraocular muscles intact. Pupils equally round and reactive to light. Mucous membranes are moist. Neck is supple. There is no jugular venous distention (JVD). He has a right internal jugular (IJ) tunneled hemodialysis catheter. CARDIOVASCULAR: S1, S2. Regular rate. 1+ edema of the left lower extremities. RESPIRATORY: Chest is clear to auscultation bilaterally. Bilateral equal air entry. No rales or rhonchi. ABDOMEN: Soft, positive bowel sounds. Peritoneal dialysis catheter is noted in the abdomen. MUSCULOSKELETAL: He has a dressing on the right below-knee amputation site. The patient has a left upper arm arteriovenous (AV) fistula with a weak thrill and bruit. 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 Power is 5/5 in bilateral upper extremities. LABORATORY REVIEW: Complete blood count (CBC) showed a WBC 10.6, hemoglobin 10.2, platelets are 363. Basic metabolic panel (BMP) showed sodium 133, potassium 4.5, chloride 99, bicarbonate 29, BUN 62, creatinine is 8.2. C-reactive protein is 6.1 CURRENT INPATIENT MEDICATIONS: The patient's medications were all reviewed by me. There is no change in the medications today as compared with yesterday. ASSESSMENT AND PLAN: 1. End-stage renal disease. Today is the patient's regular day of dialysis. He will be dialyzed in the afternoon via the right IJ tunneled hemodialysis catheter. Ultrafiltration goal will be 1 liter as tolerated by his blood pressure. 2. Hypertension. The patient's blood pressure is elevated after exercise. Continue current dose of diltiazem 60 mg by mouth daily. No further escalation of the regimen. Fluid optimization during dialysis would help improve blood pressure. If blood pressure still stays high after dialysis, then antihypertensive regimen will be increased. 3. Anemia in end-stage renal disease. Hemoglobin level is optimized. Continue current dose of Aranesp.
[2019-10-17] MEDS: SIMVASTATIN 40 MG TAB PO SCH (20:33)
[2019-10-17] MEDS: LEVEMIR (INSULIN DETEMIR) 1 UNITS/0.01ML SC SCH (20:34)
[2019-10-18] VITALS (11 sets, daily range): BP systolic 120–160; BP diastolic 59–70
[2019-10-18] MEDS: HumaLOG INSULIN (NovoLOG) PER UNIT SC SCH ×4 (07:30→21:00)
[2019-10-18] MEDS: SUCROFERRIC OXYHYDROXIDE 500MG CHEW TAB (VELPHORO) PO SCH ×3 (08:00→17:08)
[2019-10-18] MEDS: DOCUSATE SODIUM 100 MG CAP PO SCH ×2 (09:00→21:10)
[2019-10-18] MEDS: REMEDY PHYTOPLEX Z-GUARD PASTE 113GM TUBE (FROM STOREROOM PRODUCT) TOP SCH ×3 (09:00→21:00)
[2019-10-18] MEDS ORDERED: HEPARIN 1,000 UNITS/ML 10ML VIAL (FOR RADIOLOGY& DIALYSIS ONLY)(J1644-10) As Ordered ONE (09:08)
[2019-10-18] MEDS ORDERED: MIDAZOLAM INJ 2 MG/2 ML VIAL (J2250) As Ordered ONE (09:08)
[2019-10-18] MEDS ORDERED: LIDOCAINE 1% MDV 20ML VIAL As Ordered ONE (09:08)
[2019-10-18] MEDS ORDERED: ISOVUE-300 61% 50ML VIAL (Q9967) As Ordered ONE (09:08)
[2019-10-18] MEDS ORDERED: fentaNYL 100 MCG/2 ML INJECTION (J3010) As Ordered ONE (09:08)
--- NOTE | 2019-10-18 12:18 | ROOPDOC ---
[facility] Report Of Operation Report of Operation DATE OF PROCEDURE: 10/18/19 PREPROCEDURE DIAGNOSES: Atherosclerosis of the [place] vessels with pressure wound right heel. POSTPROCEDURE DIAGNOSES: Same. PROCEDURE: 1. Ultrasound-guided access right common femoral artery 2. Aortoiliofemoral arteriogram was selection of left common femoral artery and left lower extremity arteriogram and selection of left SFA with left lower extremity runoff 3. Angioplasty left distal SFA and proximal popliteal artery with 5 x 100 [place] balloon 4. Stenting of left distal SFA proximal popliteal artery with 6 x 100 Innova stent and post-dilation was 6 x 100 [place] balloon 5. Cross chronic total occlusion left posterior tibial artery into the plantar vessels and angioplasty with a 1.5 x 40 coyote balloon, 2 x 120 coyote balloon, 2 x 100 Lionel balloon, and 2 x 220 Lionel balloon. 6. Angioplasty anterior tibial artery with 2 x 220 Lionel balloon and 2.5 x 220 Lionel balloon 7. Completion arteriogram 8. Mynx closure right common femoral artery SURGEON: Marianela Andrew MD ANESTHESIA: Local anesthesia with 6 mL lidocaine. Moderate intravenous conscious sedation was supervised by Dr. Andrew. The patient was independently monitored by registered nurse assigned at the Department of radiology using automated blood pressure, EKG, and pulse oximetry. The detailed sedation record is permanently stored in the hospital information system. The following is the brief sedation record: Start time 09:52, stop time 11:29, Versed 2 mg IV, fentanyl 100 g IV, heparin 5500 units IV. CONTRAST: 75 mL Isovue-300 INDICATION FOR PROCEDURE: Mr. 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 Risks benefits and alternatives to arteriogram and potential intervention were explained to the patient and he is agreeable to proceed. Informed consent was obtained. INTERPRETATION: 1. There is widely patent inflow through the aortoiliofemoral segments proximally. The common iliac artery, hypogastric, and external iliac arteries are widely patent with no flow limitation. Mild plaque is noted but it is not flow-limiting. 2. The left common femoral artery is widely patent and run soft into a widely patent profunda and SFA. Both are heavily calcified but no flow limitation is noted. 3. The left distal SFA has a bit of ectasia at Bishop's canal that is mildly flow-limiting, and then there is a 50% narrowing in the proximal popliteal artery due to 2 cm of bulky heavy calcified plaque. Distal to this, the distal popliteal artery is patent and runs off primarily through the anterior tibial artery to the foot. There are 3 areas of focal severe stenosis in the anterior tibial artery, but otherwise it is the main runoff. The peroneal artery is diminutive and does runoff to the ankle. The posterior tibial artery occludes near its origin and does not reconstitute. All the left tibial vessels are heavily calcified. 4. After challenging efforts to cross the occluded left posterior tibial artery into the plantar vessels of the foot, and angioplasty of the proximal mid and distal posterior tibial artery with a 2 x 220 Lionel balloon, there was flow but it was sluggish and did not runoff into the foot. We attempted to angioplasty with an additional Lionel balloon, but still were not able to cross into the foot. However, after angioplasty with a 1.5 x 40 coyote balloon, and subsequently with a 2 x 120 coyote balloon, we then had runoff through the posterior tibial artery to the medial plantar artery in the foot. There is a small AV fistula from the medial plantar artery which provides additional outflow due to limited outflow through the plantar circulation from the medial plantar artery. This is best case scenario because it will allow flow from the posterior tibial artery to help supply the angiosome of the heel and maintain patency of the posterior tibial artery. There is no extravasation, embolization, or dissection noted. 5. After angioplasty of the left anterior tibial artery with a 2 x 220 Lionel balloon, there was still residual stenosis in all 3 areas of stenosis noted previously, and we upsized to a 2.5 x 220 Lionel balloon and this dramatically improved flow with less than 10% residual stenosis and widely patent inflow into the foot. No extravasation embolization or dissection is noted. 6. At the completion of the case, the patient has 3 vessel runoff to the foot. REPORT OF OPERATION: The patient was brought to the angiographic suite in stable condition. His bilateral groins are prepped and draped in a sterile fashion. A t imeout was performed. Sedation was administered without complication. Local anesthesia was a manager asset to the skin and subcutaneous tissue over the right common femoral artery and a microneedle was used to access the artery under ultrasound guidance. A wire was passed through this access and the needle was removed. A 4 Russian glide sheath was placed over the wire using the Seldinger technique and flushed with saline. A Glidewire was advanced through this access into the aorta under fluoroscopic guidance in the catheter was advanced over the wire. We then performed and aortoiliofemoral arteriogram and interpretation as above. We then went up and over the bifurcation to select the left common femoral artery and left lower extremity arteriograms were performed, placing interpretation above. We then selected the left SFA and a runoff was performed. Please interpretation above. We then advanced a Glidewire into the distal popliteal artery and exchange the sheath for 6 Russian 70 cm sheath into the mid SFA. The sheath was flushed with saline. We then passed a 5 x 100 [place] balloon across the proximal popliteal and three-minute angioplasty was performed. We then retracted into the distal SFA and a three-minute angioplasty was performed. Following this, there was a still bulky plaque that was resistant Yoon plasty in the proximal popliteal artery, but the distal SFA looked widely patent with no ectasia flow limitation. We selected a 6 x 100 Innova stent and deployed this across the proximal popliteal artery and postdilated with a 6 x 100 [place] balloon. This provided widely patent flow through the distal as the popliteal system. We then exchange the wire for Glidewire advantage O18 wire and selected the posterior tibial artery. It took a moment to get into the artery due to occlusion, but eventually was able to navigate the wire and passive distally down to the ankle. It took a considerable amount of effort to navigate past the ankle into the medial plantar artery. Eventually, we were able to navigate the wire into the foot. We angioplasty with a 2 x 220 Lionel balloon along the length of the vessel above the ankle for three-minute inflations, but we were not able to pass this balloon beyond the ankle. I felt this might be due to the fact that the balloon profile was increased after inflating and deflating it, and so I obtained another 2 mm balloon, a 100 length, Lionel, to see if I could pass this distally but was unsuccessful. The calcium popped the balloon. I tried dilating bypassing [place] over the wire into the plantar vessels, but still I cannot passive balloon distally. Through the [place] catheter exchanged for an O1 for Glidewire advantage and then we selected a 1.5 x 40 coyote balloon to see if we could dilate up the stenosis to allow us to get flow into the foot. After several three-minute angioplasties, we exchange the balloon for a 2 x 120 coyote balloon and did three-minute inflations again. Following this, we had in- line flow through the posterior tibial artery into the medial plantar artery and there was a late filling small AV fistula from the medial plantar artery that allowed outflow which is helping to keep the posterior tibial artery open. We then turned our attention to the anterior tibial artery and once selected, we angioplasty first with a 2 x 220 Lionel balloon, however this did not significantly improve the areas of stenosis and we upsized to a 2.5 x 220 Lionel balloon and did three-minute inflations along the length of the vessel. Following this, there is widely patent flow through the anterior tibial artery with mild residual stenosis that is not flow-limiting. Completion imaging shows 3 vessel runoff to the foot with no embolization dissection or extravasation noted. This concluded our procedure. We exchanged the sheath for short 6 Russian sheath over an O35 Glidewire. We then flushed the sheath with saline and deployed a Mynx closure device with good hemostasis. Pressure was held and sterile dressings were applied and the patient was taken back to recovery in stable condition. There were no complications and he tolerated the procedure well. ESTIMATED BLOOD LOSS: Approximately 5 mL. COMPLICATIONS: None. PLAN: The patient will need 4 hours bedrest postprocedure. Following this, he can resume activity as tolerated but no strenuous exercise or lifting greater than 10 pounds for 24 hours. He can resume his diabetic renal diet. He can resume all previous orders for medications. Continue to offload the left heel to allow for healing and wound care as needed. We appreciate the opportunity to p articipate in the care of this patient. MARIANELA ANDREW MD Oct 18, 2019 12:17
[2019-10-18] MEDS ORDERED: CLOPIDOGREL 75 MG TAB PO ONE (12:30)
[2019-10-18] MEDS: CLOPIDOGREL 75 MG TAB PO SCH (12:34)
[2019-10-18] MEDS: HEPARIN SOD (PORCINE) 5000 UNITS/ML VIAL (J1644 PER 1000UNITS) SC SCH ×2 (12:35→21:10)
[2019-10-18] MEDS: ATROPINE SULFATE 1% OP SOLN 2 ML BTL OS SCH (12:37)
[2019-10-18] MEDS: prednisoLONE ACET 1% OPHTH SUSP 5ML OS SCH ×2 (12:37→21:11)
[2019-10-18] MEDS: BRINZOLAMIDE 1 % OPHTH SUSP (AZOPT) 10ML OS SCH ×2 (12:37→21:11)
[2019-10-18] MEDS: POLYSPORIN TOPICAL OINTMENT 15GM TOP SCH ×2 (12:38→21:12)
[2019-10-18] MEDS: ASPIRIN 81 MG ENTERIC TAB PO SCH (12:52)
[2019-10-18] MEDS: CEPHALEXIN 250 MG CAP PO SCH (17:08)
[2019-10-18] MEDS: SIMVASTATIN 40 MG TAB PO SCH (21:10)
[2019-10-18] MEDS: LEVEMIR (INSULIN DETEMIR) 1 UNITS/0.01ML SC SCH (21:10)
[2019-10-18] MEDS: ACETAMINOPHEN 500 MG TAB PO PRN (21:12)
[2019-10-19 01:00] VITALS: BP 136/70
[2019-10-19 06:00] VITALS: BP 176/76
[2019-10-19] MEDS: HumaLOG INSULIN (NovoLOG) PER UNIT SC SCH ×4 (07:30→20:22)
[2019-10-19] MEDS: SUCROFERRIC OXYHYDROXIDE 500MG CHEW TAB (VELPHORO) PO SCH ×3 (08:00→17:11)
[2019-10-19] MEDS: prednisoLONE ACET 1% OPHTH SUSP 5ML OS SCH ×2 (08:39→20:20)
[2019-10-19] MEDS: ATROPINE SULFATE 1% OP SOLN 2 ML BTL OS SCH (08:39)
[2019-10-19] MEDS: BRINZOLAMIDE 1 % OPHTH SUSP (AZOPT) 10ML OS SCH ×2 (08:39→20:20)
[2019-10-19] MEDS: POLYSPORIN TOPICAL OINTMENT 15GM TOP SCH ×2 (08:45→20:23)
[2019-10-19 09:00] LABS: BASO # 0.1 10^3/uL (0.0-0.2); BASO % 0.6 % (0.0-1.0); EOS # 0.2 10^3/uL (0.0-0.5); EOS % 1.7 % (0.0-3.0); HEMATOCRIT 30.7 % (42.0-52.0); HEMOGLOBIN 9.7 g/dl (13.5-17.5); LYMPH # 1.1 10^3/uL (1.5-5.0); LYMPH % 8.9 % (24.0-44.0); MEAN CORPUSCULAR HEMOGLOBIN 31.1 pg (27.0-33.0); MEAN CORPUSCULAR HGB CONC 31.6 g/dl (32.0-36.5); MEAN CORPUSCULAR VOLUME 98.4 fl (80.0-96.0); MONO # 1.1 10^3/uL (0.0-0.8); MONO % 9.4 % (0.0-5.0); NEUTROPHILS # 9.5 10^3/uL (1.5-8.5); NEUTROPHILS % 78.2 % (36.0-66.0); PLATELET COUNT, AUTOMATED 342 10^3/uL (150-450); RED BLOOD COUNT 3.12 10^6/uL (4.30-6.10); WHITE BLOOD COUNT 12.1 10^3/uL (4.0-10.0)
[2019-10-19] MEDS: REMEDY PHYTOPLEX Z-GUARD PASTE 113GM TUBE (FROM STOREROOM PRODUCT) TOP SCH ×3 (09:00→20:23)
[2019-10-19] MEDS: HEPARIN SOD (PORCINE) 5000 UNITS/ML VIAL (J1644 PER 1000UNITS) SC SCH ×2 (09:00→20:21)
[2019-10-19] MEDS: DOCUSATE SODIUM 100 MG CAP PO SCH ×2 (09:00→20:21)
[2019-10-19 09:12] LABS: C REACTIVE PROTEIN QUANTITATIV 4.86 MG/DL (0.00-0.30); CALCIUM LEVEL 7.8 MG/DL (8.8-10.2); CREATININE FOR GFR 7.45 MG/DL (0.70-1.30); GLOMERULAR FILTRATION RATE 7.9 (>49); POTASSIUM SERUM 4.7 MEQ/L (3.5-5.1)
[2019-10-19 10:00] VITALS: BP 161/65
[2019-10-19] MEDS ORDERED: HEPARIN 1,000 UNITS/ML 10ML VIAL (FOR RADIOLOGY& DIALYSIS ONLY)(J1644-10) IV ONE (10:15)
[2019-10-19 15:10] VITALS: BP 123/64
[2019-10-19] MEDS: ASPIRIN 81 MG ENTERIC TAB PO SCH (16:26)
[2019-10-19] MEDS: CLOPIDOGREL 75 MG TAB PO SCH (16:27)
[2019-10-19 20:08] VITALS: BP 140/57
[2019-10-19] MEDS: ACETAMINOPHEN 500 MG TAB PO PRN (20:21)
[2019-10-19] MEDS: SIMVASTATIN 40 MG TAB PO SCH (20:21)
[2019-10-19] MEDS: LEVEMIR (INSULIN DETEMIR) 1 UNITS/0.01ML SC SCH (20:22)
[2019-10-20 05:44] VITALS: BP 133/60
[2019-10-20] MEDS: SUCROFERRIC OXYHYDROXIDE 500MG CHEW TAB (VELPHORO) PO SCH ×3 (08:00→16:37)
[2019-10-20] MEDS: DOCUSATE SODIUM 100 MG CAP PO SCH ×2 (09:20→20:15)
[2019-10-20] MEDS: HEPARIN SOD (PORCINE) 5000 UNITS/ML VIAL (J1644 PER 1000UNITS) SC SCH ×2 (09:20→20:14)
[2019-10-20] MEDS: CLOPIDOGREL 75 MG TAB PO SCH (09:20)
[2019-10-20] MEDS: ASPIRIN 81 MG ENTERIC TAB PO SCH (09:21)
[2019-10-20] MEDS: HumaLOG INSULIN (NovoLOG) PER UNIT SC SCH ×4 (09:22→20:15)
[2019-10-20] MEDS: ATROPINE SULFATE 1% OP SOLN 2 ML BTL OS SCH (09:23)
[2019-10-20] MEDS: prednisoLONE ACET 1% OPHTH SUSP 5ML OS SCH ×2 (09:23→20:16)
[2019-10-20] MEDS: BRINZOLAMIDE 1 % OPHTH SUSP (AZOPT) 10ML OS SCH ×2 (09:23→20:16)
[2019-10-20] MEDS: POLYSPORIN TOPICAL OINTMENT 15GM TOP SCH ×2 (09:24→20:17)
[2019-10-20] MEDS: REMEDY PHYTOPLEX Z-GUARD PASTE 113GM TUBE (FROM STOREROOM PRODUCT) TOP SCH ×3 (09:24→20:17)
--- NOTE | 2019-10-20 10:15 | IPN ---
DATE: 10/19/2019 SUBJECTIVE The patient was seen and examined at the bedside today morning during hemodialysis procedure. He was tolerating the hemodialysis procedure well. He reports that he got the angiogram of the left lower extremity done yesterday and he got seven stenosis balloon in the left lower extremity. No stent was placed. He denies any other active complaints at this time. OBJECTIVE Vital signs: Temperature is 96.5 degrees Fahrenheit, blood pressure 161/65, pulse is 76, respiratory rate of 18, saturating 96% on room air. Intake and output: There is no urine output recorded. Weight in the bed scale was 95.5 mL yesterday. PHYSICAL EXAMINATION General: The patient is awake, alert, oriented times three, laying in bed getting hemodialysis done. Head and neck exam: Extraocular muscles intact. Pupils equally round and reactive to light. Mucous membranes are moist. Neck is supple. There is no JVD. He has a right IJ tunneled hemodialysis catheter. Cardiovascular: S1, S2, regular rate. 1+ edema of the left lower extremity. Respiratory: Chest is clear to auscultation bilaterally. Bilateral equal air entry. No rales or rhonchi. Abdomen: Soft, positive bowel sounds. Nontender. No organomegaly. Musculoskeletal: He has a right below-knee amputation with a dressing and he has a walker ceja on the left leg. ALLERGY SPECIALIST: No focal deficit. Power is 5/5 in all extremities. AV access: The patient has a right IJ tunneled hemodialysis catheter and he has a left upper arm AV fistula with positive thrill and bruit. ALLERGY SPECIALIST: No focal deficit. Power is 5 x 5 in all extremities. LAB REVIEW: CBC showed WBC 12.1, hemoglobin 9.7, platelets are 342. BMP showed sodium 136, potassium 4.7, chloride 102, bicarb 29, BUN 52, creatinine is 7.4. C-reactive protein is 4.8. CURRENT INPATIENT MEDICATIONS The patient's medications were all reviewed by me. He is getting Keflex 150 mg by mouth every 48 hourly. No other change in the medications today as compared with yesterday. ASSESSMENT/PLAN 1. End-stage renal disease. The patient is being dialyzed according to his regular schedule. Ultrafiltration goal will be 1 liter as tolerated by his blood pressure. 2. Hypertension, blood pressure is controlled with the current dose of diltiazem. Optimization of fluid status would also help improve blood pressure. 3. Anemia in end-stage renal disease. Continue current dose of Aranesp. 4. Peripheral vascular disease. The patient is status post left leg angiogram and reports seven ballooning done. No stent was placed. The rest of the management is as per vascular surgery. The patient is also status post right below-knee amputation.
[2019-10-20 14:00] VITALS: BP 143/73
[2019-10-20] MEDS: CEPHALEXIN 250 MG CAP PO SCH (16:37)
[2019-10-20 20:02] VITALS: BP 125/58
[2019-10-20] MEDS: SIMVASTATIN 40 MG TAB PO SCH (20:15)
[2019-10-20] MEDS: LEVEMIR (INSULIN DETEMIR) 1 UNITS/0.01ML SC SCH (20:15)
[2019-10-20] MEDS: ACETAMINOPHEN 500 MG TAB PO PRN (20:15)
--- NOTE | 2019-10-20 20:32 | IPN ---
DATE: 10/20/2019 Mr. Lawson is seen this morning on his bedside. He is currently in acute rehabilitation participating with physical therapy. The patient has been feeling well and his strength has improved. He is anticipating discharge to home early next week. He has been temporarily switched to hemodialysis due to acute rehabilitation need and peritoneal dialysis has been temporarily stopped. PHYSICAL EXAMINATION: Temperature 98.3 degrees Fahrenheit, heart rate 72 per minute and respiratory rate 14 per minute. Blood pressure 133/60 mmHg and oxygen saturation 97%. Head is atraumatic. Neck supple and without JVD or thyroid enlargement. Heart sounds are regular and lungs sound clear to auscultation. Abdomen soft and nontender and bowel sounds are normal. Extremities without any cyanosis or clubbing. Left arm AV fistula site has significant ecchymosis. He has a Perma-Cath on his right upper chest. The patient had a right [id number] amputation and stump is wrapped in dressing. Neurologically he is awake, alert and at his baseline mentation. PROBLEMS: 1. End-stage renal disease. The patient has been on temporary hemodialysis since she was transferred to acute rehabilitation floor. Will continue with the same until he is ready for discharge to home. He will resume his home peritoneal dialysis after discharge. 2. Hypertension. Blood pressure is very well controlled on current antihypertensive medications and no changes are being made today. 3. Anemia. He was recently transfused during this admission and since then anemia has been stable. We will continue to manage with dialysis. He will receive once a week Aranesp while on hemodialysis and then resume his outpatient treatment once he gets discharged and switches back to peritoneal dialysis.
[2019-10-21 05:34] VITALS: BP 126/58
[2019-10-21 07:03] LABS: BASO # 0.1 10^3/uL (0.0-0.2); BASO % 0.8 % (0.0-1.0); EOS # 0.4 10^3/uL (0.0-0.5); EOS % 3.3 % (0.0-3.0); HEMATOCRIT 29.5 % (42.0-52.0); HEMOGLOBIN 9.4 g/dl (13.5-17.5); LYMPH # 1.8 10^3/uL (1.5-5.0); LYMPH % 15.9 % (24.0-44.0); MEAN CORPUSCULAR HEMOGLOBIN 31.5 pg (27.0-33.0); MEAN CORPUSCULAR HGB CONC 31.9 g/dl (32.0-36.5); MONO # 1.1 10^3/uL (0.0-0.8); MONO % 10.2 % (0.0-5.0); NEUTROPHILS # 7.6 10^3/uL (1.5-8.5); NEUTROPHILS % 68.5 % (36.0-66.0); PLATELET COUNT, AUTOMATED 373 10^3/uL (150-450); RED BLOOD COUNT 2.98 10^6/uL (4.30-6.10); WHITE BLOOD COUNT 11.2 10^3/uL (4.0-10.0)
[2019-10-21 07:34] LABS: C REACTIVE PROTEIN QUANTITATIV 6.01 MG/DL (0.00-0.30); CALCIUM LEVEL 8.3 MG/DL (8.8-10.2); CREATININE FOR GFR 7.35 MG/DL (0.70-1.30); POTASSIUM SERUM 3.9 MEQ/L (3.5-5.1)
[2019-10-21] MEDS: REMEDY PHYTOPLEX Z-GUARD PASTE 113GM TUBE (FROM STOREROOM PRODUCT) TOP SCH ×3 (09:00→20:10)
[2019-10-21] MEDS: SUCROFERRIC OXYHYDROXIDE 500MG CHEW TAB (VELPHORO) PO SCH ×3 (09:05→17:05)
[2019-10-21] MEDS: HumaLOG INSULIN (NovoLOG) PER UNIT SC SCH ×4 (09:06→20:23)
[2019-10-21] MEDS: HEPARIN SOD (PORCINE) 5000 UNITS/ML VIAL (J1644 PER 1000UNITS) SC SCH ×2 (09:06→20:24)
[2019-10-21] MEDS: ATROPINE SULFATE 1% OP SOLN 2 ML BTL OS SCH (09:07)
[2019-10-21] MEDS: DOCUSATE SODIUM 100 MG CAP PO SCH ×2 (09:07→20:30)
[2019-10-21] MEDS: CLOPIDOGREL 75 MG TAB PO SCH (09:07)
[2019-10-21] MEDS: BRINZOLAMIDE 1 % OPHTH SUSP (AZOPT) 10ML OS SCH ×2 (09:07→20:26)
[2019-10-21] MEDS: prednisoLONE ACET 1% OPHTH SUSP 5ML OS SCH ×2 (09:07→20:26)
[2019-10-21] MEDS: ASPIRIN 81 MG ENTERIC TAB PO SCH (09:07)
[2019-10-21] MEDS: POLYSPORIN TOPICAL OINTMENT 15GM TOP SCH ×2 (09:08→20:29)
--- NOTE | 2019-10-21 10:30 | IPNPDOC ---
Text Note Date of Service The patient was seen on 10/21/19. NOTE Chief Complaint/HPI Mr. Lawson is a 63-year-old male who was admitted to [facility] on October 02, following transmetatarsal amputation with eventual below knee ampu tation (October 06) of the right foot. Patient has also had issues with dry gangrene in the left foot for several weeks, he has had amputation of 2 of the toes with poor wound healing, and he has also undergone multiple angioplasties without success. While inpatient, he also underwent banding of the LUE AV fistula because of ischemia at the tip of the index finger. Patient has since been transferred to the acute rehabilitation unit on October 13. Patient is seen sitting up in bed this morning. He is doing well and feel stronger each day. He has denied any new or worsening issues at this time. General: Denies: Chills, Night Sweats, Fatigue, Malaise, Normal Appetite Constitutional: Denies: Chills, Fever, Night Sweats Eyes: Denies: Pain ENT: Denies: Head Aches Skin: Reports: Other; Denies: Rash, Lesions Pulmonary: Denies: Dyspnea, Cough Cardiovascular: Denies: Chest Pain, Palpitations, Orthopnea, Paroxysmal Noc. Dyspnea, Edema, Lt Headedness Gastrointestinal: Denies: Nausea, Vomiting, Abdominal Pain, Diarrhea, Constipation Genitourinary: Denies: Dysuria Hematologic: Denies: Bruising Musculoskeletal: Denies: Neck Pain, Back Pain, Joint Pain, Muscle Pain, Spasms Neurological: Denies: Weakness, Numbness, Change in speech, Confusion Psych: Reports: Mood Normal Objective Physical Examination General Exam: Positive: Alert, Cooperative, No Acute Distress Eye Exam: Positive: PERRLA, Conjunctiva & lids normal, EOMI; Negative: Sclera icteric ENT Exam: Positive: Atraumatic, Mucous membr. moist/pink, Pharynx Normal Neck Exam: Positive: Supple; Negative: thyromegaly Chest Exam: Positive: Clear to auscultation, Normal air movement Heart Exam: Positive: Rate Normal, Regular Rhythm, Normal S1, Normal S2, Murmurs (2/6 crescendo murmur ); Negative: Rubs Telemetry: Positive: No significant arrhythmia Abdomen Exam: Positive: Normal bowel sounds, Soft Extremity Exam: Positive: Other (right BKA bandaging in place. No signs of inflammation around surrounding skin, boot L foot s/p arteriogram); Negative: Clubbing, Cyanosis, Edema Skin Exam: Positive: Nl turgor and temperature; Negative: Rash, Breakdown Neuro Exam: Positive: Normal Speech Psych Exam: Positive: Mood NL Assessment /Plan Assessment Mr. Lawson is a 63-year-old male who was admitted to [facility] on October 02, following transmetatarsal amputation with eventual below knee amputation (October 06) of the right foot. Patient has also had issues with dry gangrene in the left foot for several weeks, he has had amputation of 2 of the toes with poor wound healing, and he has also undergone multiple angioplasties without success. While inpatient, he also underwent banding of the LUE AV fistula because of ischemia at the tip of the index finger. He has had a PermCath placed for dialysis per Dr. Andrew on October 14. Patient has since been transferred to the acute rehabilitation unit on October 14. Patient has a past medical history which includes: ESRD, hypertension, type 2 diabetes, anemia in chronic disease, peripheral vascular disease right BKA secondary to dry gangrene and poor wound healing. #1. 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 Continues with rehabilitation per resin maker #2. End-stage renal disease. Patient has been switched from PD to HD due to his acute rehabilitation transfer. Hyperkalemia secondary to supplementation. (Patient needed potassium while he was on PD). Pt switched to HD while on ARU and K+ supplementation d/c. -HD Sat//. Continued management per nephrology #3. Peripheral vascular disease Patient is being followed by Dr. Andrew, vascular surgery Prescribed Keflex for superficial cellulitis of the right BKA Continue Plavix, aspirin, statin - Wound care per vascular surgery; ARU nursing will change bandages today if needed. #4 Anemia in chronic disease Patient received 2 units PRBCs while on the medical floor, since then H&H has been stable. Started on Aranesp with HD per nephrology #5 Hypertension. Continue with CCB. #6. Type 2 diabetes. Insulin dependent Continue with Levemir as prescribed with and sliding scale insulin before meals -Consistent carbohydrate diet Plan/VTE VTE Prophylaxis Ordered?: Yes (HSQ) VS,[place]+O VS, Fishbone, I+O Laboratory Tests 10/21/19 06:38 Vital Signs Date Time Temp Pulse Resp B/P (MAP) Pulse Ox O2 Delivery O2 Flow Rate FiO2 10/21/19 09:07 71 126/58 10/21/19 05:34 98.3 16 94 Room Air I&O- Last 24 Hours up to 6 AM 10/21/19 06:00 Intake Total 220 ml Balance 220 ml RAFA LAMA PA-C Oct 21, 2019 10:30
[2019-10-21 14:00] VITALS: BP 157/72
[2019-10-21] MEDS: SIMVASTATIN 40 MG TAB PO SCH (20:22)
[2019-10-21] MEDS: LEVEMIR (INSULIN DETEMIR) 1 UNITS/0.01ML SC SCH (20:23)
[2019-10-21 22:00] VITALS: BP 144/65
[2019-10-22 06:00] VITALS: BP 146/74
[2019-10-22 06:30] LABS: BASO # 0.1 10^3/uL (0.0-0.2); BASO % 0.5 % (0.0-1.0); EOS # 0.5 10^3/uL (0.0-0.5); EOS % 4.1 % (0.0-3.0); HEMATOCRIT 28.5 % (42.0-52.0); HEMOGLOBIN 9.1 g/dl (13.5-17.5); LYMPH # 1.8 10^3/uL (1.5-5.0); MEAN CORPUSCULAR HEMOGLOBIN 31.8 pg (27.0-33.0); MEAN CORPUSCULAR HGB CONC 31.9 g/dl (32.0-36.5); MEAN CORPUSCULAR VOLUME 99.7 fl (80.0-96.0); MONO # 1.2 10^3/uL (0.0-0.8); MONO % 10.7 % (0.0-5.0); NEUTROPHILS # 7.7 10^3/uL (1.5-8.5); NEUTROPHILS % 67.4 % (36.0-66.0); PLATELET COUNT, AUTOMATED 388 10^3/uL (150-450); RED BLOOD COUNT 2.86 10^6/uL (4.30-6.10); WHITE BLOOD COUNT 11.4 10^3/uL (4.0-10.0)
[2019-10-22 06:57] LABS: C REACTIVE PROTEIN QUANTITATIV 4.87 MG/DL (0.00-0.30); CALCIUM LEVEL 8.3 MG/DL (8.8-10.2); CREATININE FOR GFR 8.48 MG/DL (0.70-1.30); GLOMERULAR FILTRATION RATE 6.8 (>49); POTASSIUM SERUM 4.3 MEQ/L (3.5-5.1)
[2019-10-22] MEDS: ASPIRIN 81 MG ENTERIC TAB PO SCH (07:52)
[2019-10-22] MEDS: DOCUSATE SODIUM 100 MG CAP PO SCH ×2 (07:52→21:17)
[2019-10-22] MEDS: CLOPIDOGREL 75 MG TAB PO SCH (07:52)
[2019-10-22] MEDS: SUCROFERRIC OXYHYDROXIDE 500MG CHEW TAB (VELPHORO) PO SCH ×3 (07:53→17:22)
[2019-10-22] MEDS: HEPARIN SOD (PORCINE) 5000 UNITS/ML VIAL (J1644 PER 1000UNITS) SC SCH ×2 (07:53→21:16)
[2019-10-22] MEDS: HumaLOG INSULIN (NovoLOG) PER UNIT SC SCH ×4 (07:54→21:00)
[2019-10-22] MEDS: prednisoLONE ACET 1% OPHTH SUSP 5ML OS SCH ×2 (07:54→21:00)
[2019-10-22] MEDS: BRINZOLAMIDE 1 % OPHTH SUSP (AZOPT) 10ML OS SCH ×2 (07:54→21:00)
[2019-10-22] MEDS: ATROPINE SULFATE 1% OP SOLN 2 ML BTL OS SCH (07:54)
[2019-10-22] MEDS: REMEDY PHYTOPLEX Z-GUARD PASTE 113GM TUBE (FROM STOREROOM PRODUCT) TOP SCH ×3 (07:55→21:00)
[2019-10-22] MEDS: POLYSPORIN TOPICAL OINTMENT 15GM TOP SCH ×2 (07:55→21:20)
[2019-10-22] MEDS: LEVEMIR (INSULIN DETEMIR) 1 UNITS/0.01ML SC SCH (11:15)
[2019-10-22] MEDS ORDERED: DILT60TA PO (12:46)
[2019-10-22] MEDS ORDERED: INSULANT SC (12:46)
[2019-10-22] MEDS ORDERED: ASPI81TAEC PO (12:46)
[2019-10-22] MEDS ORDERED: CLOP75TA2 PO (12:46)
[2019-10-22] MEDS ORDERED: SIMV40TA20 PO (12:46)
--- NOTE | 2019-10-22 15:56 | IPN ---
DATE: 10/22/2019 Mr. Lawson is seen this morning on his bedside. He is lying in the bed without any acute distress. His is present in the room. The patient reports that he did have some physical therapy this morning and going to have one more session. He is also scheduled for dialysis later this afternoon. The patient is likely to be discharged to home tomorrow, as he has completed his rehabilitation and met the goals. PHYSICAL EXAMINATION: Temperature 99 degrees Fahrenheit, heart rate 79 per minute, respiratory rate 18 per minute, blood pressure 146/74 mm of mercury, and oxygen saturation 97% on room air. Head is atraumatic. Neck supple and jugular venous distention (JVD) difficult to assess. He has an internal jugular catheter in right neck and exit site on upper chest. He has no oral thrush or ulcers. Heart sounds are regular, and are lungs clear to auscultation. Abdomen soft and nontender, and peritoneal dialysis catheter is intact. Extremities without any cyanosis or clubbing. The patient is status post right [id number] amputation. He has ecchymosis on his left arm, but arteriovenous (AV) fistula is patent, which is currently not being used. Neurologically, he is awake, alert, and at his baseline mentation. Today's labs show WBC count 11.4, hemoglobin 9.1, and hematocrit 28.5. Sodium 136, potassium 4.3, BUN 51 and creatinine 8.48. Rest of his chemistry is within normal range. PROBLEMS: 1. End-stage renal disease. The patient is currently on maintenance hemodialysis and will be dialyzed this afternoon. We will plan to remove his dialysis catheter before discharge to home. Once he is home, then he will resume his peritoneal dialysis. 2. Anemia. His anemia is stable at present and will receive Aranesp 200 mcg dose today. This will be followed up in outpatient dialysis clinic. 3. Hypertension. Blood pressure is very well controlled on current medications, and no changes are being made today. 4. Peripheral vascular disease, status post right [id number] amputation and also status post left lower extremity angioplasty. The patient is doing well following his opgpe-ins-[id number] amputation and continues with rehabilitation. He is in good spirits and meeting his rehabilitation goals. He is likely to be discharged tomorrow.
[2019-10-22] MEDS ORDERED: DOXY-350 PO (16:08)
--- NOTE | 2019-10-22 16:16 | IPNPDOC ---
PM&R Progress Note DATE OF SERVICE: Oct 22, 2019 Printing Bindery Assistant Progress Note Subjective; Patient seen in dialysis for dressing change and agrees to another trial of antibiotics. REVIEW OF SYSTEMS: The following is a completed review of systems and has been reviewed. Review of systems otherwise unremarkable. PAIN: Patient self reports no pain EYES: No recent vision changes. EARS, NOSE, & THROAT: No throat pain, or dysphagia, or rhinorrhea CARDIOVASCULAR: Denies chest pain or palpitations. PULMONARY: Denies shortness of breath GASTROINTESTINAL: Denies constipation/diarrhea GENITOURINARY:+oliguric MUSCULOSKELETAL: LLE weakness and right BKA NEUROLOGICAL: +peripheral polyneuropathy HEMATOLOGICAL: denies easy bruising SKIN: right BKA incision, left D1 gangrene, right heel ulcer PSYCHIATRIC: Unremarkable All other review of systems found to be negative. PHYSICAL EXAMINATION: VITAL SIGNS: Please see below. GENERAL: Pleasant and cooperative. No acute distress. HEENT: PERRL. Extraocular movements intact. Clear conjunctiva CARDIOVASCULAR: Regular rate and rhythm. No murmurs, rubs, or gallops LUNGS: Clear to auscultation bilaterally. No wheezes. No rhonchi ABDOMEN: Soft, nontender, nondistended. Positive bowel sounds. Normal active bowel sounds, +peritoneal access NEUROLOGICAL: Alert and oriented times three. Cranial nerves II through XII grossly intact. Sensation nearly absent to light touch LLE and bilat fingertips EXTREMITIES: 4\5 strength bilateral upper extremities. 5\5 strength right hip flexion, knee extension . 4/5 strength in left hip flexion, knee extension, 3/5 ankle DF, 2/5 EHL. SKIN: right BKA incision with moderate erythema, no induration, not warm/painful to touch, left heel blister, left hand D1 with distal tip gangrenous left hand PIP joint with minor dried lacerations on them ASSESSMENT:63-year-old M with past medical history of DM and ESRD who presents status post right BKA PLAN: 1. Rehab- PT advance functional transfers, maintain ROM/stretch/strengthen bilat LE, teach limb care OT- advance ADL training, strengthen/stretch/maintain ROM bilat UE, shoulder protection 2. Neuro: pmh DM with severe peripheral neuropathy with poor proprioception, c/u good glucose control 3. CArdiac: hx of HTN c/u Cardizem and daily weights for CHF, HLD c/u Zocor- medicine consulted to assist in management -PVD s/p right BKA c/u ASa and Plavix, f/u Dr. Andrew on d/c, consulted in- house, s/p arteriogram with angioplasty/stenting 10-18-19 4. Resp: encourgae incentive spirometry 5. Endo: pmh DM c/u Levemir and ISS, adjust prn 6. ID: BKA incision with persistent erythema, s/p renally dosed Keflex with only modest effect on SPEECH LANG PATH THERAPIST- will start doxycycline for MRSA coverage 7. DVT ppx: heparin 8. GI ppx: patient refusing protonix 9. Pain: patient denies having any pain, tylenol prn 10. Renal: ESRD on HD //Mon, renal consulted- permacath placed 11. Skin: added bacitracin to left hand scabs, c/u bilat limb care per instructions 12. Dispo: 10-24-19 to home, progressing towards goals Allergies Coded Allergies: acetazolamide (Verified Adverse Reaction, Severe, CONVULSIONS, 10/02/19) Vital Signs Vital Signs Date Time Temp Pulse Resp B/P (MAP) Pulse Ox O2 Delivery O2 Flow Rate FiO2 10/22/19 07:52 79 146/74 10/22/19 06:00 99.0 18 97 Room Air Laboratory Data CBC/BMP Laboratory Tests 10/22/19 06:20 Labs 24H Laboratory Tests 2 10/21/19 16:39: Bedside Glucose (Misc Panel) 256H 10/21/19 20:14: Bedside Glucose (Misc Panel) 338H 10/22/19 05:36: Bedside Glucose (Misc Panel) 235H 10/22/19 06:20: Immature Granulocyte % (Auto) 1.3, Neutrophils (%) (Auto) 67.4H, Lymphocytes (%) (Auto) 16.0L, Monocytes (%) (Auto) 10.7H, Eosinophils (%) (Auto) 4.1H, Basophils (%) (Auto) 0.5, Neutrophils # (Auto) 7.7, Lymphocytes # (Auto) 1.8, Monocytes # (Auto) 1.2H, Eosinophils # (Auto) 0.5, Basophils # (Auto) 0.1, Nucleated Red Blood Cells % (auto) 0.5H, Anion Gap 6L, Glomerular Filtration Rate 6.8L, Calcium Level 8.3L, C-Reactive Protein, Quantitative 4.87H 10/22/19 11:39: Bedside Glucose (Misc Panel) 132H Current Medications Current Medications Current Medications Medications (Trade) Dose Ordered Sig/Micheline Route PRN Reason Start Time Stop Time Status Last Admin Dose Admin Acetaminophen (Tylenol Tab) 1,000 mg TID PO 10/14/19 16:00 10/14/19 17:59 DC Acetaminophen (Tylenol Tab) 1,000 mg TID PRN PO fever/pain 10/14/19 18:00 10/20/19 20:15 Aspirin (Ecotrin) 81 mg DAILY PO 10/15/19 09:00 10/22/19 07:52 Atropine Sulfate (Isopto Atropine 1%) 1 drop DAILY OS 10/15/19 09:00 10/22/19 07:54 Bacitracin/ Polymyxin B Sulfate (Polysporin Top Oint) clean left hand knuck... BID TOP 10/16/19 17:00 10/22/19 07:55 Bisacodyl (Dulcolax Suppository) 10 mg DAILYPRN PRN VT CONSTIPATION 10/14/19 13:45 Brinzolamide (Azopt) 1 drop BID OS 10/14/19 21:00 10/22/19 07:54 Cephalexin Monohydrate (Keflex) 250 mg Q48H PO 10/14/19 16:00 10/20/19 16:01 DC 10/20/19 16:37 Clopidogrel Bisulfate (PLAVix) 75 mg DAILY PO 10/15/19 09:00 10/22/19 07:52 Darbepoetin Gary (Aranesp (Dialysis Use)) 200 mcg HD IV 10/15/19 11:30 Dextrose (Dextrose 50%) 25 ml ASDIRECTED PRN IV SEE LABEL COMMENTS 10/14/19 13:45 Diltiazem HCl (Cardizem) 60 mg DAILY PO 10/15/19 09:00 10/22/19 07:52 Docusate Sodium (Colace) 100 mg BID PO 10/14/19 21:00 10/22/19 07:52 Doxycycline Hyclate (Vibramycin) 100 mg BID PO 10/22/19 21:00 10/22/19 16:14 DC Doxycycline Hyclate (Vibramycin) 100 mg BID@1000,2100 PO 10/22/19 21:00 10/29/19 10:01 Glucagon (Glucagon) 1 mg ASDIRECTED PRN SC SEE LABEL COMMENTS 10/14/19 13:45 Glucose (Glucose) 16 GM ASDIRECTED PRN PO SEE LABEL COMMENTS 10/14/19 13:45 Heparin Sodium (Porcine) (Heparin) 5,000 units Q12H SC 10/14/19 21:00 10/22/19 07:53 Insulin Detemir (Levemir Insulin) 5 units DAILY SC 10/22/19 11:15 Insulin Detemir (Levemir Insulin) 35 units QHS SC 10/14/19 21:00 10/16/19 11:00 DC 10/15/19 20:54 Insulin Detemir (Levemir Insulin) 40 units QHS SC 10/16/19 21:00 10/22/19 11:15 DC 10/21/19 20:23 Insulin Detemir (Levemir Insulin) 42 units QHS SC 10/22/19 21:00 Insulin Human Lispro (HumaLOG INSULIN) SEE PROTOCOL TABLE AC SC 10/14/19 17:30 10/22/19 07:54 Insulin Human Lispro (HumaLOG INSULIN) SEE PROTOCOL TABLE QHS SC 10/14/19 21:00 10/21/19 20:23 Ondansetron HCl (Zofran) 4 mg Q6HP PRN PO NAUSEA 10/14/19 13:45 Oxycodone HCl (Roxicodone, Oxyir) 5 mg Q4HP PRN PO PAIN 10/14/19 13:45 10/14/19 14:33 DC Pantoprazole Sodium (Protonix) 40 mg DAILY PO 10/14/19 09:00 10/14/19 17:59 DC Potassium Chloride (Micro-K Extencaps) 20 meq BID PO 10/14/19 21:00 10/15/19 11:28 DC 10/14/19 21:00 Prednisolone Acetate (Predforte 1% Ophth Susp) 1 drop BID OS 10/14/19 21:00 10/22/19 07:54 Senna (Senokot) 1 tab QHS PO 10/14/19 21:00 10/14/19 14:33 DC Senna (Senokot) 1 tab QHS PRN PO constipation 10/14/19 21:00 Simvastatin (Zocor) 40 mg QHS PO 10/14/19 21:00 10/21/19 20:22 Sucroferric Oxyhydroxide (Velphoro) 500 mg WM PO 10/14/19 18:00 10/22/19 12:16 MAURA MCKEON MD Oct 22, 2019 16:16
[2019-10-22 21:00] VITALS: BP 179/69
[2019-10-22] MEDS ORDERED: DOXYCYCLINE HYCLATE 100 MG TAB PO SCH (21:00)
[2019-10-22] MEDS ORDERED: LEVEMIR (INSULIN DETEMIR) 1 UNITS/0.01ML SC SCH (21:00)
[2019-10-22] MEDS: DOXYCYCLINE HYCLATE 100 MG TAB PO SCH (21:17)
[2019-10-22] MEDS: SIMVASTATIN 40 MG TAB PO SCH (21:18)
[2019-10-22 21:28] VITALS: BP 128/58
[2019-10-23 06:00] VITALS: BP 136/64
[2019-10-23] MEDS: SUCROFERRIC OXYHYDROXIDE 500MG CHEW TAB (VELPHORO) PO SCH (07:46)
[2019-10-23] MEDS: REMEDY PHYTOPLEX Z-GUARD PASTE 113GM TUBE (FROM STOREROOM PRODUCT) TOP SCH (07:46)
[2019-10-23 08:56] VITALS: BP 136/64
[2019-10-23] MEDS: CLOPIDOGREL 75 MG TAB PO SCH (08:56)
[2019-10-23] MEDS: ASPIRIN 81 MG ENTERIC TAB PO SCH (08:56)
[2019-10-23] MEDS: DOXYCYCLINE HYCLATE 100 MG TAB PO SCH (08:56)
[2019-10-23] MEDS: DOCUSATE SODIUM 100 MG CAP PO SCH (08:56)
[2019-10-23] MEDS: HEPARIN SOD (PORCINE) 5000 UNITS/ML VIAL (J1644 PER 1000UNITS) SC SCH (08:57)
[2019-10-23] MEDS: LEVEMIR (INSULIN DETEMIR) 1 UNITS/0.01ML SC SCH (08:57)
[2019-10-23] MEDS: POLYSPORIN TOPICAL OINTMENT 15GM TOP SCH (08:58)
[2019-10-23] MEDS: ATROPINE SULFATE 1% OP SOLN 2 ML BTL OS SCH (08:58)
[2019-10-23] MEDS: prednisoLONE ACET 1% OPHTH SUSP 5ML OS SCH (08:58)
[2019-10-23] MEDS: HumaLOG INSULIN (NovoLOG) PER UNIT SC SCH (08:58)
[2019-10-23] MEDS: BRINZOLAMIDE 1 % OPHTH SUSP (AZOPT) 10ML OS SCH (08:58)
--- NOTE | 2019-10-29 22:19 | PMRDS ---
DATE OF ADMISSION: 10/14/2019 DATE OF DISCHARGE: 10/23/2019 CHIEF COMPLAINT/DISCHARGE DIAGNOSES: Right below-knee amputation (BKA). HISTORY OF PRESENT ILLNESS: 63M pmh ESRD on PD, HTN, DM with peripheral polyneuropathy who presented to [facility] ED on 10-02-19 following trans-metatarsal amputation of his right foot performed by Dr. Chowdary on 10-02-19 and was admitted for post-op recovery and noted to have wounds on his left hand. Vascular surgery was consulted for his left hand first digit gangrene for which he underwent banding of the left cephalic vein fistula and ligation of cephalic vein branches on 10-04-19 without complication and immediate revascularization. He was placed on broad spectrum IV antibiotics and his leukocytosis improved. He was followed closely by renal for his ESRD and eventually converted to hemodialysis with AVF placed in his LUE without complication. He was evaluated by therapy and found to have impairments in mobility and ADLS and deemed medically appropriate for discharge to ARU on 10-14-19. PAST MEDICAL HISTORY: As per HPI. HOSPITAL COURSE: The patient was admitted, enrolled in a comprehensive physical therapy (PT), occupational therapy (OT) program. He received 24-hour nursing supervision and weekly team meetings were held to discuss his progress. The patient was started initially on Keflex for suspected cellulitis at his residual limb with insignificant changes and was eventually started on doxycycline for methicillin-resistant Staphylococcus aureus (MRSA) coverage 1 day prior to discharge. He was maintained on aspirin and Plavix and followed by Dr. Andrew during his hospital course here. He underwent an arteriogram and angioplasty/stenting on 10/18/2019 for a left lower extremity ulcer on his heel. The patient did not complain of pain during his hospital course, most likely due to severe peripheral polyneuropathy. He made significant gains and was deemed medically and functionally stable to return home. Discharge medications as per instructions. FUNCTIONAL HISTORY ON DISCHARGE: Patient was modified independent for functional transfers, able to propel a wheelchair 200 feet and standby assist for toileting. In occupational therapy, he was min assist for bathing, standby assist for upper body dressing, min assist for lower body dressing, mod-I for grooming. Thank for this referral.
== END 2019-10-23 10:35 | disposition home health service (06) | DRG 559 ==
LOC: M PM&R 13:30
PROVIDERS: ADMIT Physical Medicine & Rehabilitation; ATTEND Physical Medicine & Rehabilitation
PROC: B5191ZA Fluoroscopy of Inferior Vena Cava using Low Osmolar Contrast, Guidance (ICD-10-PCS; 2019-10-15)
PROC: 06H033Z Insertion of Infusion Device into Inferior Vena Cava, Percutaneous Approach (ICD-10-PCS; principal; 2019-10-15 13:49)
DX: Z47.81 Encounter for orthopedic aftercare following surgical amputation (principal); N18.6 End stage renal disease; T87.43 Infection of amputation stump, right lower extremity; L03.115 Cellulitis of right lower limb; E46 Unspecified protein-calorie malnutrition; E11.52 Type 2 diabetes mellitus with diabetic peripheral angiopathy with gangrene; I10 Essential (primary) hypertension; E11.51 Type 2 diabetes mellitus with diabetic peripheral angiopathy without gangrene; Z79.4 Long term (current) use of insulin; Z79.82 Long term (current) use of aspirin; Z79.899 Other long term (current) drug therapy; Z88.8 Allergy status to other drugs, medicaments and biological substances; D63.1 Anemia in chronic kidney disease; E87.5 Hyperkalemia; L89.629 Pressure ulcer of left heel, unspecified stage; Z99.2 Dependence on renal dialysis; Z89.511 Acquired absence of right leg below knee

== ENCOUNTER 2019-11-25 09:46 | Day surgery (SDC) | payer MEDICARE ==
[~2019-11-25] VITALS: Ht 177.8 cm; Wt 95.3 kg
[~2019-11-25 09:46] MED LIST changes: +ASPI81TAEC PO; +DILT60TA PO; +DOXY-350 PO; +LORA-243 PO; +NS 1,000 ML IV SCH; -PANTOPRAZOLE 40MG TAB (PROTONIX) PO SCH; +ROSU20TA5 PO; +VITAD1000T PO
[2019-11-25] MEDS ORDERED: propofoL 200 MG/20 ML VIAL As Ordered ONE (10:17)
[2019-11-25] MEDS ORDERED: LIDOCAINE 2% INJ 100 MG/5 ML SDV (FOR ANES.) As Ordered ONE (10:17)
[2019-11-25] MEDS ORDERED: fentaNYL 100 MCG/2 ML INJECTION (J3010) As Ordered ONE (10:17)
[2019-11-25] MEDS ORDERED: MIDAZOLAM INJ 2 MG/2 ML VIAL (J2250) As Ordered ONE (10:17)
[2019-11-25] MEDS ORDERED: HEPARIN SOD (PORCINE) 5000 UNITS/ML VIAL (J1644 PER 1000UNITS) As Ordered ONE (10:45)
[2019-11-25] MEDS ORDERED: BUPIVACAINE/EPIN 0.5% 30 ML VIAL As Ordered ONE (10:45)
[2019-11-25 10:50] LABS: HEMATOCRIT 31.6 % (42.0-52.0); HEMOGLOBIN 9.9 g/dl (13.5-17.5); MEAN CORPUSCULAR HEMOGLOBIN 31.5 pg (27.0-33.0); MEAN CORPUSCULAR HGB CONC 31.3 g/dl (32.0-36.5); MEAN CORPUSCULAR VOLUME 100.6 fl (80.0-96.0); PLATELET COUNT, AUTOMATED 481 10^3/uL (150-450); RED BLOOD COUNT 3.14 10^6/uL (4.30-6.10)
[2019-11-25 10:59] LABS: INR 1.12; PROTHROMBIN TIME 14.1 SECONDS (11.8-14.0)
[2019-11-25 11:00] LABS: PARTIAL THROMBOPLASTIN TIME 28.2 SECONDS (25.0-38.4)
[2019-11-25] MEDS ORDERED: ceFAZolin SOD 2 GM in IV 1 EA IV ONE (11:15)
[2019-11-25 11:19] LABS: CALCIUM LEVEL 9.1 MG/DL (8.8-10.2); CREATININE FOR GFR 10.3 MG/DL (0.70-1.30); GLOMERULAR FILTRATION RATE 5.4 (>49); POTASSIUM SERUM 4.2 MEQ/L (3.5-5.1)
[2019-11-25] MEDS ORDERED: ePHEDrine SULFATE 25 MG/5 ML(5MG/ML) SYRINGE As Ordered ONE (11:47)
[2019-11-25] MEDS ORDERED: ONDANSETRON 4MG/2ML VIAL (J2405) As Ordered ONE (11:52)
[2019-11-25] MEDS ORDERED: dexameTHASONE 4 MG/ML 1ML VIAL (J1100 PER 1MG) As Ordered ONE (11:52)
[2019-11-25] MEDS ORDERED: ACETAMINOPHEN 1000MG 100ML IV BTL (OFIRMEV) (J0131 PER 10MG) As Ordered ONE (11:53)
[2019-11-25] MEDS ORDERED: PHENYLephrine HCL 500 MCG/5 ML (100MCG/ML) SYRINGE (J2370) As Ordered ONE (11:55)
[2019-11-25] MEDS ORDERED: OXYC1TAB23 PO (12:37)
--- NOTE | 2019-11-25 12:48 | ROOPDOC ---
[facility] Report Of Operation Report of Operation DATE OF PROCEDURE: 11/25/19 PREPROCEDURE DIAGNOSES: End-stage renal disease with ischemic index finger left hand and poorly functioning left brachial cephalic AV fistula POSTPROCEDURE DIAGNOSES: Same PROCEDURE: Ligation left brachiocephalic AV fistula SURGEON: Zacarias Andrew MD ANESTHESIA: LMA anesthesia and local INDICATION FOR PROCEDURE: This is a very pleasant 64-year-old patient, severe vasculopath, with end-stage renal disease currently dialyzing with peritoneal dialysis, and diabetes. He had a left brachiocephalic AV fistula placed as a backup access for hemodialysis, but developed a nonhealing wound on the tip of his left index finger, which progressed to dry gangrene of the tip of the finger. 2 months ago, we took the patient for a banding of the fistula to increase flow to the hand. Although he had some improvement initially in the tip of the finger, upon follow-up outpatient we noticed the gangrene was progressing . This may be in part due to ongoing limitation of some perfusion from the fistula, but also may be due to the patient using his hands more and more for transfers and exercises now that he has a right lower extremity amputation. Although we hate to give up any access, this AV access was not functional for the patient. Whenever he came into the hospital, the nurses were unable to ac cess the fistula because it had not been used before, and instead we would place a PermCath for ease of access. Since they are not able to use the fistula, I do not feel trying to salvage it is worthwhile in lieu of trying to save his finger. I am not sure if the dry gangrene will progress or improve over time, but at this this point I think the safest thing is to give him as much blood flow as possible and see what additional perfusion might help him gain in regeneration of tissue. Risks benefits and alternatives to a left brachiocephalic AV fistula ligation were explained to the patient and he is agreeable to proceed. Informed consent was obtained. REPORT OF OPERATION: Is brought to the OR in stable condition and placed supine on the your table. Anesthesia and antibiotics were administered without complication. His left upper extremity was prepped and draped in a sterile fashion. A timeout was performed. Local anesthesia was administered to the skin and subcutaneous tissue over the previous access site for the AV fistula creation and the ending. A knife was used to incise the skin over the pre- existing scar. This was carried down to the subcutaneous tissue and scar tissue with Bovie cautery. This dissection took a moment as the scar tissue is fairly dense, but eventually we were able to isolate the cephalic vein fistula near the AV anastomosis. With a Doppler, we confirmed this was the fistula and not artery, as it was difficult to tell with all of the dense scar tissue around the vessel. We carefully skeletonized the vessel circumferentially and then placed a temporary tie around the fistula. Following this, we confirmed there was still flow distally in the brachial artery and the radial artery pulse was intact. After confirming this was the fistula, we secured the suture and placed an additional step tie suture around the vessel. No flow was noted in the fistula after tying it off. There was still flow noted in the brachial artery and the radial artery. We then irrigated with copious amounts of saline. The deep fascia and tissue was approximated with 2-0 Vicryl suture. Superficial tissues and the deep dermal fashion were approximated with 4-0 Vicryl suture. The skin was closed with a running 4-0 Monocryl suture. Mastisol and Steri-Strips replace the length of the incision. A 4 x 4 and Tegaderm were placed over the incision. The patient was allowed to awaken from anesthesia was taken to recovery in stable condition. He tolerated the anesthesia and the procedure well. His hand is hyperemic, warm, with less than 1 second capillary refill at the fingertips. ESTIMATED BLOOD LOSS: Approximately 5 mL. COMPLICATIONS: None. PLAN: Continue to use peritoneal dialysis catheter for peritoneal dialysis. If patient requires temporary access for hemodialysis, we will place a PermCath. If he requires permanent hemodialysis, we will place a new access in the right upper extremity. Okay to resume Plavix tomorrow. Okay to resume all home medications and diet. We like to see the patient back in a week to check his finger and hand perfusion and make sure his incision is healing. We appreciate the opportunity to participate in the care of this patient. ZACARIAS ANDREW MD Nov 25, 2019 12:48
[2019-11-25] MEDS ORDERED: PERCOCET 5MG/325MG TAB PO PRN (13:00)
[2019-11-25] MEDS ORDERED: NS 1,000 ML IV SCH (13:00)
[2019-11-25] MEDS ORDERED: fentaNYL 100 MCG/2 ML INJECTION (J3010) IV PRN (13:00)
[2019-11-25] MEDS ORDERED: ONDANSETRON 4MG/2ML VIAL (J2405) IV PRN (13:00)
[2019-11-25] MEDS ORDERED: METOCLOPRAMIDE INJ 10MG/2ML VIAL (J2765) IV PRN (13:00)
[2019-11-25] MEDS ORDERED: MEPERIDINE INJ 25 MG/ML VIAL (J2175) IV PRN (13:00)
[2019-11-25 14:40] VITALS: BP 171/90
== END 2019-11-25 14:59 | disposition home or self-care (01) ==
LOC: M SDC 09:46
PROVIDERS: ATTEND Surgery Vascular Surgery
DX: N18.6 End stage renal disease (principal); I12.0 Hypertensive chronic kidney disease with stage 5 chronic kidney disease or end stage renal disease; E11.22 Type 2 diabetes mellitus with diabetic chronic kidney disease; E11.52 Type 2 diabetes mellitus with diabetic peripheral angiopathy with gangrene; E11.40 Type 2 diabetes mellitus with diabetic neuropathy, unspecified; E78.00 Pure hypercholesterolemia, unspecified; I73.9 Peripheral vascular disease, unspecified; I96 Gangrene, not elsewhere classified; R06.83 Snoring; M12.9 Arthropathy, unspecified; Z79.01 Long term (current) use of anticoagulants; Z79.4 Long term (current) use of insulin; Z79.82 Long term (current) use of aspirin; Z79.899 Other long term (current) drug therapy; Z88.8 Allergy status to other drugs, medicaments and biological substances; Z96.1 Presence of intraocular lens; Z99.2 Dependence on renal dialysis; Z99.3 Dependence on wheelchair; Z98.41 Cataract extraction status, right eye
CPT/HCPCS: 36415; 37607; 80048; 85027; 85610; 85730; 86850; 86900; 86901; J0131; J1100; J1644; J2250; J2370; J2405; J3010

== ENCOUNTER → 2019-12-05 | Outpatient (REF) | payer MEDICARE ==
[~2019-12-05] MED LIST changes: -NS 1,000 ML IV SCH; +OXYC1TAB23 PO
== END ==
LOC: M LAB REF 14:29
PROVIDERS: ATTEND Physician Assistant
DX: I96 Gangrene, not elsewhere classified (principal)

== ENCOUNTER → 2019-12-06 | Outpatient (REF) | payer MEDICARE ==
[~2019-12-06] MED LIST changes: +CEPH500C PO; +CINA30TA4 PO; +CLAR10CA3 PO; +CVS1CAP2 PO; +DILT1TAB12 PO; +DOCU-129 PO; +DOXY100C PO; +FLAG500T PO; +LEVA750T7 PO; +LOSA50TA88 PO
== END ==
LOC: M LAB REF 15:52
PROVIDERS: ATTEND Physician Assistant
DX: I96 Gangrene, not elsewhere classified (principal)

== ENCOUNTER 2019-12-13 11:13 | Inpatient (IN) | payer MEDICARE ==
[~2019-12-13] VITALS: Ht 177.8 cm; Wt 99.5 kg
[~2019-12-13 11:13] MED LIST changes: -CEPH500C PO; -CINA30TA4 PO; -CLAR10CA3 PO; -CVS1CAP2 PO; -DILT1TAB12 PO; -DOCU-129 PO; -DOXY100C PO; -FLAG500T PO; -LEVA750T7 PO; -LOSA50TA88 PO
[2019-12-13] MEDS ORDERED: DILT1TAB12 PO (11:26)
[2019-12-13] MEDS ORDERED: DOXY100C PO (11:26)
[2019-12-13] MEDS ORDERED: CEPH500C PO (11:26)
[2019-12-13 12:00] LABS: BASO # 0.1 10^3/uL (0.0-0.2); BASO % 0.4 % (0.0-1.0); EOS # 0.4 10^3/uL (0.0-0.5); EOS % 1.8 % (0.0-3.0); HEMATOCRIT 29.4 % (42.0-52.0); HEMOGLOBIN 9.4 g/dl (13.5-17.5); LYMPH # 1.7 10^3/uL (1.5-5.0); LYMPH % 8.5 % (24.0-44.0); MEAN CORPUSCULAR HEMOGLOBIN 32.6 pg (27.0-33.0); MEAN CORPUSCULAR VOLUME 102.1 fl (80.0-96.0); MONO # 1.4 10^3/uL (0.0-0.8); MONO % 6.9 % (0.0-5.0); NEUTROPHILS # 16.3 10^3/uL (1.5-8.5); NEUTROPHILS % 81.5 % (36.0-66.0); PLATELET COUNT, AUTOMATED 372 10^3/uL (150-450); RED BLOOD COUNT 2.88 10^6/uL (4.30-6.10)
[2019-12-13] MEDS ORDERED: LevoFLOXacin IV 500 MG in IV 1 EA IV ONE (12:00)
[2019-12-13 12:19] LABS: ERYTHROCYTE SEDIMENTATION RATE 128 mm/hr (0-20)
[2019-12-13 12:51] LABS: ALBUMIN 2.2 GM/DL (3.2-5.2); BILIRUBIN,DIRECT 0.2 MG/DL (0.0-0.2); BILIRUBIN,TOTAL 0.4 MG/DL (0.2-1.0); C REACTIVE PROTEIN QUANTITATIV 16.4 MG/DL (0.00-0.30); CREATININE FOR GFR 10.2 MG/DL (0.70-1.30); GLOMERULAR FILTRATION RATE 5.5 (>49); POTASSIUM SERUM 4.1 MEQ/L (3.5-5.1); TOTAL PROTEIN 6.6 GM/DL (6.4-8.2)
[2019-12-13] MEDS ORDERED: CVS1CAP2 PO (13:47)
[2019-12-13] MEDS ORDERED: INSULANT SC (13:47)
[2019-12-13] MEDS ORDERED: DOCU-129 PO (13:47)
[2019-12-13] MEDS ORDERED: LOSA50TA88 PO (13:47)
[2019-12-13] MEDS ORDERED: CLAR10CA3 PO (13:47)
[2019-12-13] MEDS ORDERED: CINA30TA4 PO (13:47)
[2019-12-13] MEDS ORDERED: NS 1,000 ML IV SCH (14:19)
[2019-12-13] MEDS ORDERED: GLUCOSE 4GM CHEW TABLET PO PRN (14:30)
[2019-12-13] MEDS ORDERED: ACETAMINOPHEN TAB 650MG DOSE (2X325MG) PO PRN (14:30)
[2019-12-13] MEDS ORDERED: GLUCAGON INJ 1MG VIAL SC PRN (14:30)
[2019-12-13] MEDS ORDERED: DEXTROSE 50% 50 ML SYRINGE IV PRN (14:30)
[2019-12-13] MEDS ORDERED: hydrALAZINE 20MG/ML 1ML VIAL (J0360 PER 20MG) IV ONE (14:45)
[2019-12-13] MEDS ORDERED: VANCOMYCIN HCL 500 MG in D5W MINI-BAG PLUS 100 ML IV SCH (15:00)
[2019-12-13] MEDS ORDERED: hydrALAZINE 20MG/ML 1ML VIAL (J0360 PER 20MG) IV STA (15:04)
[2019-12-13] MEDS ORDERED: VANCOMYCIN INTERMITTENT/PULSE DOSING BY CLINICAL PHARMACIST PER DOSING PROTOCOL XX SCH (15:15)
--- NOTE | 2019-12-13 15:22 | REP ---
LEFT HAND SERIES: FOUR VIEWS. HISTORY: Concern for osteomyelitis left 2nd and 3rd digits. FINDINGS: The patient is apparently unable to extend the PIP joints of the index or long finger. The index finger is amputated at the level of the middle phalanx with an overlying dressing. Vascular calcification is seen diffusely in the hand and wrist including some of the digital arteries. No periosteal reaction or acute bony erosive changes seen. There is diffuse dorsal soft tissue swelling over the metacarpals and carpal region. IMPRESSION: No acute bony erosive changes are seen. Status post amputation of the index finger at the level of the middle phalanx. Vascular calcification and soft tissue swelling. Electronically Signed by Sheldon Bhandari MD 12/13/2019 04:19 P
--- NOTE | 2019-12-13 15:23 | HPEPDOC ---
[facility] Medical History & Physical Date of Admission December 13, 2019 Date of Service: December 13, 2019 Primary Care Physician: BRETT QUINTEROS MD @ Attending Physician: SHANNAN BOSS MD History and Physical PRIMARY CARE PROVIDER: Dr. Brett Quinteros ATTENDING: Dr. Shannan Boss CHIEF COMPLAINT: L-hand swelling/finger pain HISTORY OF PRESENT ILLNESS: Patient is a 64 year old male presenting from Dr. Uriarte's office with chief complaint of left hand swelling for the past we ek. On 11/25/2019, Dr. Sheldon took him to the OR for ligation of his left- brachiocephalic fistula in an attempt to save his hand from further ischemia as he had a 2 month history of progressively worsening dry gangrene in the digits of his left hand. His left index and 2nd digit were debrided on Monday and he was started on Cipro and keflex, however when his left index finger was evaluated again today pus erupted out of the digit and his left third digit was found to have a tear of his extensor tendon with bone visible on the dorsal aspect of the digit. He presented to the ED where he was found to have a WBC count of 20, elevated ESR and CRP so the hospitalist service was consulted for a dmission. PAST MEDICAL HISTORY: ESRD on PD Vascular steal syndrome Hypertension Diabetes mellitus Glaucoma PAST SURGICAL HISTORY: Left upper extremity AV fistula Ligation of left upper extremity fistula Abdominal peritoneal dialysis catheter Transmetatarsal right foot dictation SOCIAL HISTORY: History of smoking, denies current use. Denies alcohol use. Denies drug use. Lives at home with his . FAMILY HISTORY: Family history significant for diabetes Mother with brain cancer Father with lung cancer ALLERGIES: Please see below. REVIEW OF SYSTEMS: GENERAL: Denies fevers, chills, recent unexpected weight change, night sweats, hemoptysis HEENT: Denies headache, dizziness, vision changes, hearing loss, sore throat CARDIOVASCULAR: Denies chest pain, palpitations, orthopnea RESPIRATORY: Denies shortness of breath, wheezing, cough GASTROINTESTINAL: denies nausea, vomiting, abdominal pain, constipation, diarrhea, bloody stool GENITOURINARY: Denies dysuria,urinary urgency, hematuria. MUSCULOSKELETAL: Denies muscle/joint pain, weakness, stiffness NEUROLOGICAL: Denies any numbness/tingling, focal weakness, or syncope HOME MEDICATIONS: Please see below. PHYSICAL EXAMINATION: Vitals: (see below) General: No acute distress, laying comfortably in bed. HEENT: Normocephalic, atraumatic. EOMI. No scleral icterus. Moist mucous membranes. No pharyngeal erythema or uvular deviation. Neck: No JVD, lymphadenopathy, or thyromegaly. Cardiac: RRR, Normal S1 and S2, No murmurs, gallops, rubs. Pulm: Clear to auscultation b/l. Symmetric thorax. No wheezing, crackles, rhonchi Abd: Bowel Sounds present. Abdomen is soft, non-tender, non-distended. No guarding, rebound tenderness, or rigidity. No hepatosplenomegaly. No masses or eccymosis. Ext: R-BKA. Left hand with bone visible on dorsal surface of L-3rd digit stuck in flexion, L-2nd digit amputated at the DIP with visible pus present overlying the wound. Neuro: No focal neuro deficits. LABORATORY DATA: See below. IMAGING: Pending MICROBIOLOGY: Please see below. ASSESSMENT/PLAN: #. Left 2nd/3rd digit finger wound concerning for osteomyelitis -Covering empirically and based on wound cultures done of 2nd digit on 12/04 and 12/05 for citrobacter, enterobacter, staph sp. Obtaining MRSA PCR. -XR hand and MRI hand without contrast pending -Orthopedic surgery consulted and will see patient, recommendations appreciated, patient is NPO with D5W1/2NS in anticipation of possible surgery. #. Pre-op optimization - Patient is moderate risk for this procedure, have ordered BNP and post op EKG, will trend troponins daily for next 3 days. Patient is medically optimized for surgery. #. End-stage renal disease. - On peritoneal dialysis - Nephrology consulted for dialysis during hospitalization. #. Peripheral vascular disease. 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 Diabetes mellitus. Levemir 30 units BID along with Sliding scale insulin coverage with meals and at bedtime. #. Hypertension -Continue home meds, give IV hydralazine if needed. -DVT prophy:teds, seqs, holding heparin in case of surgery Attending attestation: I evaluated and examined the patient in person; I discussed the care with Resident in detail and agree with the plan above. Vital Signs Vital Signs Date Time Temp Pulse Resp B/P (MAP) Pulse Ox O2 Delivery O2 Flow Rate FiO2 12/13/19 14:30 79 18 197/98 (131) 98 Room Air 12/13/19 11:13 97.1 Laboratory Data Labs 24H Laboratory Tests 2 12/13/19 11:48: Immature Granulocyte % (Auto) 0.9, Neutrophils (%) (Auto) 81.5H, Lymphocytes (%) (Auto) 8.5L, Monocytes (%) (Auto) 6.9H, Eosinophils (%) (Auto) 1.8, Basophils (%) (Auto) 0.4, Neutrophils # (Auto) 16.3H, Lymphocytes # (Auto) 1.7, Monocytes # (Auto) 1.4H, Eosinophils # (Auto) 0.4, Basophils # (Auto) 0.1, Nucleated Red Blood Cells % (auto) 0.0, Erythrocyte Sedimentation Rate 128H, Anion Gap 10, Glomerular Filtration Rate 5.5L, Lactic Acid Level 1.3, Calcium Level 9.0, Total Bilirubin 0.4, Direct Bilirubin 0.2, Aspartate Amino Transf (AST/SGOT) 40H, A lanine Aminotransferase (ALT/SGPT) 77, Alkaline Phosphatase 522H, C-Reactive Protein, Quantitative 16.40H, Total Protein 6.6, Albumin 2.2L, Albumin/Globulin Ratio 0.50L, Lipase 51L CBC/BMP Laboratory Tests 12/13/19 11:48 Microbiology Microbiology 12/13/19 Blood Culture, Received Pending 12/13/19 Blood Culture, Received Pending Home Medications Scheduled Aspirin (Aspir 81) 81 Mg Tablet.dr, 81 MG PO DAILY Atropine Sulfate (Atropine Sulfate) 1% 2ML Drops, 1 DROP OS DAILY Bimatoprost (Lumigan) 50 Drop/2.5 Ml Karla, 1 DROP OU QHS Brimonidine Tartrate/Timolol (Combigan 0.2%-0.5% Eye Drops) 5 Ml Drops, 1 DROP OU BID Brinzolamide (Azopt) 1% 10ML Drops.susp, 1 DROP OS BID Cephalexin (Cephalexin) 500 Mg Capsule, 500 MG PO BID STARTED 12/05/19 FOR 7 DAYS Cholecalciferol (Vitamin D3) (Vitamin D3) 1,000 Unit Tablet, 1,000 UNITS PO DAILY Cinacalcet (Sensipar) 30 Mg Tablet, 30 MG PO 3XW QPM: MON, WED, FRI Clopidogrel Bisulfate (Clopidogrel) 75 Mg Tablet, 75 MG PO DAILY Diltiazem HCl (Diltiazem HCl) 60 Mg Tablet, 60 MG PO BID Docusate Sodium (Stool Softener) 100 Mg Capsule, 100 MG PO DAILY HAS NOT BEEN TAKING DUE TO ANTIBIOTICS Insulin Glargine (Lantus) 100 Unit/1 Ml Vial, 65 UNITS SC QAM Insulin Glargine (Lantus) 100 Unit/1 Ml Vial, 45 UNITS SC QPM Insulin Human Lispro (Humalog) 1 Units/0.01 Ml Inj, 1 DOSE SC AC PER SLIDING SCALE Lactobacillus Combo No.10 (Probiotic) 1 Each Capsule, 1 CAP PO DAILY Levofloxacin (Levaquin) 750 Mg Tablet, 1 TAB PO DAILY Losartan Potassium (Losartan Potassium) 50 Mg Tablet, 100 MG PO DAILY Metronidazole (Flagyl) 500 Mg Tablet, 500 MG PO Q8H FOR 10 DAYS Prednisolone Acetate (Prednisolone Acetate 1% Opth Susp) 5 Ml Drops.susp, 1 DROP OS BID Rosuvastatin Calcium (Rosuvastatin Calcium) 20 Mg Tablet, 20 MG PO QHS Sucroferric Oxyhydroxide (Velphoro) 500 Mg Tab.chew, 500 MG PO BIDWM Vit B Comp No.3/Folic/C/Biotin (Jaz-Basilio Rx Tablet) 1 Each Tablet, 1 TAB PO DAILY Scheduled PRN Loratadine (Claritin) 10 Mg Capsule, 10 MG PO DAILY PRN for ALLERGIES Allergies Coded Allergies: acetazolamide (Verified Adverse Reaction, Severe, CONVULSIONS, 11/19/19) A-FIB/CHADSVASC A-FIB History Current/History of A-Fib/PAF?: No GME ATTESTATION GME ATTESTATION My faculty preceptor for this patient encounter was physically present during the encounter and was fully available. All aspects of the patient interview, examination, medical decision making process, and medical care plan development were reviewed and approved by the faculty preceptor. The faculty preceptor is aware and concurs with the plan as stated in the body of this note and will attest to such by his/her cosignature. YANETH SHARIF DO December 13, 2019 15:23 SHANNAN BOSS MD December 17, 2019 18:32
[2019-12-13] MEDS ORDERED: MIDAZOLAM INJ 2MG/2ML VIAL (J2250 PER 1MG) As Ordered ONE (15:37)
[2019-12-13] MEDS ORDERED: ONDANSETRON 4MG/2ML VIAL As Ordered ONE (15:38)
[2019-12-13] MEDS ORDERED: LIDOCAINE 2% 100MG/5ML SDV (FOR ANES.) As Ordered ONE (15:38)
[2019-12-13] MEDS ORDERED: fentaNYL 100 MCG/2 ML INJECTION (J3010) As Ordered ONE (15:38)
[2019-12-13] MEDS ORDERED: propofoL 200 MG/20 ML VIAL As Ordered ONE ×3 (15:38→19:25)
[2019-12-13] MEDS: D5W/0.45% SODIUM CHLORIDE 1,000 ML IV SCH ×2 (16:40→21:07)
[2019-12-13] MEDS: HumaLOG INSULIN (NovoLOG) PER UNIT SC SCH ×2 (17:06→21:13)
[2019-12-13 17:38] VITALS: BP 151/59
[2019-12-13] MEDS ORDERED: CINACALCET 30 MG TAB (SENSIPAR) PO SCH (18:00)
[2019-12-13] MEDS ORDERED: BUPIVACAINE/EPIN 0.25% 30 ML VIAL As Ordered ONE (18:20)
[2019-12-13] MEDS ORDERED: VANCOMYCIN HCL 1,000 MG, VIAL MATE ADAPTER 1 EACH in D5W 250 ML IV ONE (20:00)
[2019-12-13] MEDS ORDERED: KETOROLAC 30 MG/ML 1ML VIAL IV PRN (20:15)
[2019-12-13] MEDS ORDERED: fentaNYL 100 MCG/2 ML INJECTION (J3010) IV PRN (20:15)
[2019-12-13] MEDS ORDERED: ONDANSETRON 4MG/2ML VIAL IV PRN (20:15)
[2019-12-13] MEDS ORDERED: PERCOCET 5MG/325MG TAB PO PRN (20:15)
[2019-12-13] MEDS ORDERED: LR 1,000 ML IV SCH (20:15)
[2019-12-13] MEDS ORDERED: METOCLOPRAMIDE INJ 10MG/2ML VIAL (J2765 PER 1) IV PRN (20:15)
[2019-12-13 20:45] VITALS: BP 166/66
[2019-12-13] MEDS ORDERED: ENTER DRUG NAME HERE (PATIENT'S OWN MED) OU SCH (21:00)
[2019-12-13] MEDS: LEVEMIR (INSULIN DETEMIR) 1 UNITS/0.01ML SC SCH (21:00)
[2019-12-13] MEDS: SUCROFERRIC OXYHYDROXIDE 500MG CHEW TAB (VELPHORO) PO SCH ×2 (21:06→21:12)
[2019-12-13 21:15] VITALS: BP 168/83
[2019-12-13 21:45] VITALS: BP 135/64
[2019-12-13] MEDS: TIMOLOL MALEATE 0.5% OPHTH SOLN 5 ML OU SCH (21:53)
[2019-12-13] MEDS: LATANOPROST 0.005% OPHTH SOLN 2.5 ML OU SCH (21:53)
[2019-12-13] MEDS: ROSUVASTATIN 10 MG TAB (CRESTOR) PO SCH (21:53)
[2019-12-13] MEDS: BRINZOLAMIDE 1 % OPHTH SUSP (AZOPT) 10ML OS SCH (21:53)
[2019-12-13] MEDS: prednisoLONE ACET 1% OPHTH SUSP 5ML OS SCH (21:53)
[2019-12-13] MEDS: BRIMONIDINE 0.15% OPHTH SOLN 5 ML OU SCH (21:53)
[2019-12-13 22:45] VITALS: BP 149/81
[2019-12-13] MEDS: MEROPENEM INJ 500 MG in IV 1 EA IV SCH (23:09)
[2019-12-13 23:45] VITALS: BP 149/57
[2019-12-13 23:47] LABS: APPEARANCE, BODY FLUID CLEAR (CLEAR); PERITONEAL DIALYSATE FL COLOR PALE YELLOW (COLORLESS); SOURCE, BODY FLUID PERITONEAL DIALYSATE
[2019-12-14 00:45] VITALS: BP 147/56
[2019-12-14 05:45] VITALS: BP 178/82
[2019-12-14] MEDS ORDERED: VANCOMYCIN HCL 1,000 MG, VIAL MATE ADAPTER 1 EACH in D5W 250 ML IV SCH (06:00)
[2019-12-14 07:14] LABS: HEMATOCRIT 28.4 % (42.0-52.0); MEAN CORPUSCULAR HEMOGLOBIN 32.3 pg (27.0-33.0); MEAN CORPUSCULAR HGB CONC 31.7 g/dl (32.0-36.5); MEAN CORPUSCULAR VOLUME 101.8 fl (80.0-96.0); PLATELET COUNT, AUTOMATED 365 10^3/uL (150-450); RED BLOOD COUNT 2.79 10^6/uL (4.30-6.10); WHITE BLOOD COUNT 23.9 10^3/uL (4.0-10.0)
[2019-12-14 07:36] LABS: CALCIUM LEVEL 8.5 MG/DL (8.8-10.2); CREATININE FOR GFR 10.5 MG/DL (0.70-1.30); GLOMERULAR FILTRATION RATE 5.3 (>49); POTASSIUM SERUM 3.9 MEQ/L (3.5-5.1); VANCOMYCIN RANDOM 12.6 UG/ML
--- NOTE | 2019-12-14 07:43 | CR ---
DATE OF CONSULTATION: 12/13/2019 CHIEF COMPLAINT: Left hand swelling, pain and drainage. This is a 64-year-old male who was sent to the emergency room (ER) by Dr. Uriarte's office, admitted by the medical service after having a chief complaint of left hand swelling for the last week. The patient states he has been dealing with dry gangrene of his index finger for the better part of a couple of months and underwent a procedure by Dr. Andrew on 11/26 to try to increase blood flow to his hand. However, he still continued to progressively worsen and transitioned from dry gangrene to wet gangrene. He says he has no pain, but he also has no feeling. Denies any fevers, chills, nausea, or vomiting. He has been on some oral antibiotics, Cipro and Keflex, by Dr. Uriarte's office and has underwent multiple outpatient debridements, but due to the worsening condition was sent here. Complete 10-system review was conducted; pertinent positives and negatives in the history of the present illness, other systems negative. PAST MEDICAL HISTORY: End-stage renal disease (ESRD), on peritoneal dialysis. Vascular steal syndrome. Hypertension. Diabetes. Glaucoma. PAST SURGICAL HISTORY: Left upper extremity arteriovenous (AV) fistula. Ligation of left upper extremity fistula. Abdominoperitoneal dialysis catheter. 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 SOCIAL HISTORY: History of smoking. Denies any current use. Denies alcohol or drug use. Lives at home with his . FAMILY HISTORY: Significant for brain cancer of the mother and lung cancer of the father. ALLERGIES: ACETAZOLAMIDE - severe convulsion reaction. MEDICATIONS: - aspirin - atropine - bimatoprost - brimonidine - brinzolamide - cephalexin - vitamin D3 - cinacalcet - clopidogrel - diltiazem - docusate - doxycycline - insulin - Lantus - Humalog - losartan - prednisolone drops for his eyes - rosuvastatin - vitamin B complex PHYSICAL EXAM: The patient is awake, alert and oriented, well dressed, appropriate affect, breathing on room air. Normocephalic, atraumatic. Left upper extremity: There is a 2 cm x 2 cm wound on the dorsal aspect of the PIP that has dry gangrene with exposed ruptured extensor tendon and exposed MCP joint. Index finger has auto-amputated at the middle phalanx with significant purulence at the tip and significant erythema branching up towards his MCP, similarly on his index finger. Small finger and ring finger are uninvolved, along with the thumb. Radial pulses palpable 2+, regular rate. Decreased sensation throughout the hand 1 out of 2, chronic in nature per the patient. Imaging reviewed, demonstrating no obvious fracture or dislocation. There are suggestions of osteomyelitis. LABORATORY: White count of 20 and ESR of 128. CRP of 16.4. Blood cultures are pending. I explained to the patient at this point in time he has dry gangrene of his middle finger that unfortunately has resulted in exposed tendon over time that decussated and ruptured and exposed bone. This will not heal without a local or flap; however, he is a significant vasculopath, and that would be ill-advised in this patient. I recommend, at this point, amputation of the middle finger, likely towards the base of the proximal phalanx or even at the MCP or partial ray resection. I also discussed his index finger has gross purulence with wet gangrene with erythema spreading throughout the entire length of the remaining finger. Therefore, I recommend amputation, likely at the MCP if not partial ray resection. I also warned the patient that we may only be able to do a debridement at this point; he may require further surgeries. It depends on how much local control we are able to obtain intraoperatively. Patient expressed understanding and agreement with this plan. Consent was obtained, and the patient is nothing by mouth (n.p.o.) and he tested negative for Coronavirus. I appreciate admission to medicine and starting him on empiric antibiotics. I will send the cultures from the operating room (OR) along with pathology. Recommend an infectious disease (ID) consult. ADDENDUM: Physical exam, his right hand: He has a small eschar on the radial aspect of his interphalangeal (IP) joint of his thumb. It appears to be healthy appearing with no surrounding erythema or drainage. He also has eschar at the tip of his middle finger and ring with no significant erythema, drainage, able to make composite fist. Positive anterior interosseous nerve (AIN), posterior interosseous nerve (PIN), ulnar motor function. Sensation intact light touch. It is grossly diminished throughout the hand. Radial pulse 2+, regular rate. With the left hand, he is able to make a composite fist , but_, unable to straighten the middle finger due to the extensor tendon rupture and exposed bone. BILLYD
[2019-12-14] MEDS: SUCROFERRIC OXYHYDROXIDE 500MG CHEW TAB (VELPHORO) PO SCH ×3 (08:00→17:18)
[2019-12-14 08:02] LABS: ERYTHROCYTE SEDIMENTATION RATE 128 mm/hr (0-20)
[2019-12-14] MEDS: DOCUSATE SODIUM 100 MG CAP PO SCH (08:38)
[2019-12-14] MEDS: LEVEMIR (INSULIN DETEMIR) 1 UNITS/0.01ML SC SCH ×2 (08:38→22:00)
[2019-12-14] MEDS: LACTOBACILLUS ACIDOPHILUS CAP (BACID) PO SCH (08:38)
[2019-12-14] MEDS: ATROPINE SULFATE 1% OP SOLN 2 ML BTL OS SCH (08:38)
[2019-12-14] MEDS: HumaLOG INSULIN (NovoLOG) PER UNIT SC SCH ×4 (08:38→21:00)
[2019-12-14] MEDS: BRIMONIDINE 0.15% OPHTH SOLN 5 ML OU SCH ×2 (08:39→21:22)
[2019-12-14] MEDS: BRINZOLAMIDE 1 % OPHTH SUSP (AZOPT) 10ML OS SCH ×2 (08:39→21:21)
[2019-12-14] MEDS: prednisoLONE ACET 1% OPHTH SUSP 5ML OS SCH ×2 (08:39→21:22)
[2019-12-14] MEDS: TIMOLOL MALEATE 0.5% OPHTH SOLN 5 ML OU SCH ×2 (08:39→21:22)
[2019-12-14] MEDS: LOSARTAN 50 MG TAB PO SCH (08:43)
[2019-12-14] MEDS ORDERED: DARBEPOETIN 200MCG/0.4ML *NON-DIALYSIS* SYRINGE (J0881 PER 1MCG) SC SCH (09:00)
[2019-12-14] MEDS ORDERED: ASPIRIN 325 MG TAB PO SCH (09:00)
[2019-12-14] MEDS ORDERED: VANCOMYCIN HCL 1,000 MG, VIAL MATE ADAPTER 1 EACH in D5W 250 ML IV ONE (09:00)
[2019-12-14 12:35] LABS: TROPONIN I 0.14 NG/ML (< 0.10)
--- NOTE | 2019-12-14 13:10 | IPNPDOC ---
Text Note Date of Service The patient was seen on 12/14/19. NOTE SUBJECTIVE: 64 year old male admitted for dry and wet gangrene to 2nd/3rd digits of LUE s/p 2nd/3rd digit amputation on 12/13/2019. No acute events overnight, patient reports he had 2nd/3rd digits amputated yesterday, his pain is not well controlled at this time. We had a conversation that he may not be able to leave by tomorrow like he had hoped. He otherwise denies any fever, chills, chest pain, difficulty breathing, abdominal pain, nausea, vomiting. OBJECTIVE: PHYSICAL EXAMINATION: Vitals: (see below) General: No acute distress, laying comfortably in bed. HEENT: Normocephalic, atraumatic. EOMI. No scleral icterus. Moist mucous membranes. No pharyngeal erythema or uvular deviation. Neck: No JVD, lymphadenopathy, or thyromegaly. Cardiac: RRR, Normal S1 and S2, No murmurs, gallops, rubs. Pulm: Clear to auscultation b/l. Symmetric thorax. No wheezing, crackles, r honchi Abd: Bowel Sounds present. Abdomen is soft, non-tender, non-distended. Ext: R-BKA. Left hand wrapped with bandage. Neuro: No focal neuro deficits. LABORATORY DATA, MICROBIOLOGY: Please see below. IMAGING STUDIES: L-hand XR: No acute bony erosive changes are seen. Status post amputation of the index finger at the level of the middle phalanx. Vascular calcification and soft tissue swelling. ASSESSMENT AND PLAN: #. Wet/dry gangrene of LUE s/p finger amputation x2. -Covering empirically and based on wound cultures done of 2nd digit on 12/04 and 12/05 for citrobacter, enterobacter, staph sp. Obtaining MRSA PCR. -Cultures pending, blood cultures showing no growth after 24 hours. -Orthopedic surgery consulted, recommendations appreciated. -ID consulted as per ortho recommendations, they will await results of cultures and would like a call when they are final. #. Pre-op optimization - Patient is moderate risk for this procedure, have ordered BNP and post op EKG, will trend troponins daily for next 3 days. Patient is medically optimized for surgery. - BNP elevated, EKG normal this AM as it was not performed post-operatively in PACU as per order, troponin today elevated at 0.14, likely 2/2 patients renal disease, he is not complaining of any anginal symptoms. #. End-stage renal disease. - On peritoneal dialysis - Nephrology consulted for dialysis during hospitalization. #. Peripheral vascular disease. Will restart aspirin and plavix. - Continue statin - Vascular surgery not product manufacturing professional currently #. Diabetes mellitus. Levemir 30 units BID along with Sliding scale insulin coverage with meals and at bedtime. #. Hypertension -Continue home meds, give IV hydralazine if needed. -DVT prophy:teds, seqs, heparin Attending attestation: I evaluated and examined the patient in person; I discussed the care with Resident in detail and agree with the plan above. VS,Fishbone, I+O VS, Fishbone, I+O Laboratory Tests 12/14/19 06:51 Vital Signs Date Time Temp Pulse Resp B/P (MAP) Pulse Ox O2 Delivery O2 Flow Rate FiO2 12/14/19 08:44 95 12/14/19 08:43 177/80 12/14/19 05:45 99.3 17 94 Room Air 12/13/19 19:45 10 I&O- Last 24 Hours up to 6 AM 12/14/19 06:00 Intake Total 5145 ml Output Total 3200 ml Balance 1945 ml GME ATTESTATION GME ATTESTATION My faculty preceptor for this patient encounter was physically present during the encounter and was fully available. All aspects of the patient interview, examination, medical decision making process, and medical care plan development were reviewed and approved by the faculty preceptor. The faculty preceptor is aware and concurs with the plan as stated in the body of this note and will attest to such by his/her cosignature. YANETH SHARIF DO December 14, 2019 13:10 SHANNAN WADSWORTH MD December 17, 2019 19:37
[2019-12-14] MEDS: CLOPIDOGREL 75 MG TAB PO SCH (13:22)
[2019-12-14] MEDS: HEPARIN SOD (PORCINE) 5000UNITS/ML VIAL (J1644 PER 1000UNITS) SQ SCH ×2 (13:23→21:12)
[2019-12-14] MEDS: **hydrALAZINE HCL** 25 MG TAB PO SCH ×2 (13:23→21:12)
[2019-12-14] MEDS: ASPIRIN 81 MG CHEW TABLET PO SCH (13:47)
[2019-12-14 14:00] VITALS: BP 165/90
--- NOTE | 2019-12-14 15:38 | RO ---
DATE OF PROCEDURE: 12/13/2019 PREOPERATIVE DIAGNOSES: Left index finger wet gangrene, middle finger dry gangrene with extensor tendon rupture and exposed bone, and deep hand abscess. POSTOPERATIVE DIAGNOSES: Left index finger wet gangrene, middle finger dry gangrene with extensor tendon rupture and exposed bone, and deep hand abscess. PROCEDURE: Left index finger ray resection, middle finger amputation at the level of the proximal phalanx, along with irrigation and debridement of deep hand abscess with opening of bone cortex. SURGEON: Dell Owen MD TRAFFIC LIEUTENANT: None. ANESTHESIA: INDICATIONS: This 64-year-old male with numerous vascular issues that has been dealing with dry gangrene numerous sites on bilateral hands; however, the left hand has started having increasing pain, swelling, and drainage. He has been managed locally by Dr. Uriarte's office for local debridement. He underwent a vascular procedure trying to increase blood flow to the hand. We discussed operative versus nonoperative intervention with wet gangrene without any sign of improving. I recommended amputation of the index finger, possibly a ray resection including amputation of the middle finger given that he had extensive tendon rupture and exposed bone at the proximal interphalangeal (PIP) dorsally and he is not a good candidate for local flap coverage. Patient expressed understanding and agreement with the plan. We discussed risks and benefits, including, but not limited to, infection, damage to surrounding structures, incomplete relief, and need for further surgery, and patient wished to proceed. I called Dr. Andrew preoperatively to confirm that it was okay to use the upper arm tourniquet, and she was okay with this. PREOPERATIVE ANTIBIOTICS: None were given. Patient is on antibiotics on the floor. SPECIMENS: The index and middle finger were sent off along with deep tissue cultures of both the index and middle finger abscesses along with the deep palm abscess. BLOOD LOSS: Approximately 50 mL. TOURNIQUET: 300 mmHg for approximately 1 hour. COMPLICATIONS: None. DESCRIPTION OF PROCEDURE: The patient was brought back to the operating room (OR) in the supine position, underwent moderate sedation, at which point the left arm was prepped and draped in the usual fashion. We then used a local block over the median nerve and the radial nerve with 30 mL of 0.25% Marcaine with epinephrine (epi). We then elevated the tourniquet up to 300 mmHg with gravity exanguation finger, at which point we made a linear incision along mid saggital of index extending into the fist webspace to expose metacarpal head and gain access volar to this where there was concern for deep palm abscess, at which point we encountered purulence. We then took deep cultures at this point. We then amputated the proximal phalanx at the level of the metacarpophalangeal (MCP) and used a sagittal saw to do a ray resection at the level of the metacarpal neck on both an ulnar and a volar angle, at which point we thoroughly irrigated and debrided sharply skin and subcutaneous tissue, muscle, and bone, including opening the bone cortex to help debride the area. At which point, we turned our attention to the middle finger. We once again made a mid saggital incision and amputated the finger at the level of the proximal interphalangeal (PIP). We then did a resection of the proximal phalanx at the mid phalangeal area using a bone cutter and rongeur. We then sharply dissected proximally into the palm volarly to expose increased purulence and gain access to the A1 kat and palm abscess. We then, at this point, resected both the flexor and extensor tendons of the index and middle finger, along with the radial, ulnar nerves. We then ran 2 liters of fluid, irrigating the area thoroughly, at which point we were happy with the local controlled resection, and there seemed to be healthy bleeding tissue. We then closed our ray resection incision along with our middle finger amputation with #3-0 interrupted simple nylon stitches, dressed the wound with Adaptic, gauze, Kerlix, and Eladio. Tourniquet was let down after approximately an hour. Taken to the postanesthesia care unit (PACU) in stable condition. The patient was awakened without complications. POSTOPERATIVE PLAN: The patient will work on pain control and range of motion of the remaining fingers. Will followup the cultures and recommend infectious disease (ID) consult for antibiotic coverage. They can change the dressings as needed, keep them clean, dry, and intact. ALEXEI
--- NOTE | 2019-12-14 16:28 | CR ---
DATE OF CONSULTATION: 12/14/2019 CONSULTATION REPORT FOR: Dr. Diana Boss CONSULTING PHYSICIAN: Dr. Sanchez REASON FOR CONSULTATION: Management of end-stage renal disease and peritoneal dialysis. CHIEF COMPLAINT: The patient presented to the hospital yesterday with left hand swelling and pain in his fingers. HISTORY OF PRESENT ILLNESS: Mr. Jai Lawson is a 64-year-old male with past medical history of end-stage renal disease on peritoneal dialysis, hypertension, diabetes mellitus type 2, and multiple other comorbidities as mentioned below. 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 Fistula has already been ligated by vascular surgery. However, his left index finger and ring finger dry gangrene was not healing. He was following up with Dr. Uriarte as outpatient. Debridement was being tried but when he was recently seen in the office he was found to have pus from the digits and the tendons and both bones were exposed. The patient was sent to the emergency room for further evaluation. He was found to have infection and cellulitis of the left hand. He was started on broad-spectrum antibiotics. He was admitted under the hospitalist service. Orthopedic surgery consult was requested. He was seen by orthopedic surgery and he got the amputation of the left index and middle finger. Nephrology service was called for further help in the management of this patient's end-stage renal disease and hemodialysis. I saw and evaluated the patient today morning at the bedside. He has a dressing on the left hand now. I had already ordered his peritoneal dialysis. He is getting the peritoneal dialysis and denies any active complaints at this time. PAST MEDICAL HISTORY: 1. End-stage renal disease on peritoneal dialysis. 2. History of left arm last arm steal syndrome. 3. Hypertension. 4. Diabetes mellitus, type 2. 5. History of glaucoma. 6. Anemia secondary to end-stage renal disease. PAST SURGICAL HISTORY: Status post left upper arm arteriovenous (AV) fistula which was later on ligated by vascular surgery, status post peritoneal dialysis (PD) catheter placement, status post right below-knee amputation, and now he has left index and middle finger amputations. ALLERGIES: He is allergic to ACETAZOLAMIDE. FAMILY HISTORY: No significant family history of end-stage renal disease. There is positive history of brain cancer in the mother and lung cancer in the father. SOCIAL HISTORY: The patient lives at home. He has history of smoking in the past. He denies any illicit drug abuse or alcohol abuse. REVIEW OF SYSTEMS: CONSTITUTIONAL: He denies any fevers or chills. EYES: He reports decreased vision because of diabetes. EARS, NOSE AND THROAT (ENT): He denies any dysphagia or odynophagia. CARDIOVASCULAR: He denies any chest pain or palpitations. RESPIRATORY: He denies any shortness of breath. GASTROINTESTINAL (GI): He denies any nausea or vomiting. GENITOURINARY: He denies any dysuria or hematuria. MUSCULOSKELETAL: He reports left heel ulcer. 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 HEMATOLOGIC/ONCOLOGIC: He denies any easy bleeding or bruising. ENDOCRINE: He reports history of diabetes mellitus, type 2. All other review of systems is negative. PHYSICAL EXAMINATION: GENERAL: The patient is awake, alert, oriented times three, laying in bed. VITAL SIGNS: Temperature is 99.3 degrees Fahrenheit, blood pressure 178/82, pulse is 94, respiratory rate of 17, saturating 94% on room air. HEAD AND NECK: Extraocular muscles intact. Pupils equally round and reactive to light. Mucous membranes are moist. Neck is supple. There is no jugular venous distention (JVD). CARDIOVASCULAR: S1, S2, regular rate. No edema of the left lower extremity. RESPIRATORY: Chest is clear to auscultation bilaterally. Bilateral equal air entry. No rales or rhonchi. ABDOMEN: Soft, obese, positive bowel sounds. Left lower quadrant peritoneal dialysis (PD) catheter is noted and exit site is clean. MUSCULOSKELETAL: The patient has left heel ulcer and her right below-knee amputation and he has a dressing on the left hand and recently got left index and middle finger amputated. CENTRAL NERVOUS SYSTEM (AMER[employer] SIGN LANGUAGE TEACHER): No focal deficit. Power is 5/5 in extremities. SKIN: The patient has a left heel ulcer, otherwise no rashes. PSYCHIATRIC: Normal mood and affect. LABORATORY REVIEW: CBC showed a WBC of 23.9, hemoglobin is 9, platelets are 365. Peritoneal dialysis fluid count is 117. However, polymorphonuclears are only 12.9%. BMP showed sodium 136, potassium 3.9, chloride 97, bicarbonate 27, BUN 73, creatinine is 10.5, calcium 8.5, troponin is 0.14. Random vancomycin is 12.6. MICROBIOLOGY: All the blood cultures and wound cultures are still pending. IMAGING STUDIES: A hand x-ray was done yesterday which showed no acute bony erosive changes, status post amputation of the index finger at the level of the middle phalanx, vascular calcification and soft tissue swelling. CURRENT INPATIENT MEDICATIONS: The patient's medications were all reviewed by myself. He got one dose of Levaquin IV yesterday. He was on Ringer's lactate which has been stopped. He is getting meropenem 500 mg IV every 24 hours. He is on vancomycin and 1 gram IV was given today morning. He is on Azopt eye drops, Sensipar 30 mg by mouth every Monday, Monday, Monday. I have given him a dose of Aranesp 200 mcg subcutaneous. He is on diltiazem 60 mg by mouth twice a day, Colace 100 mg by mouth daily, hydralazine 10 mg IV times one dose was given. He is on insulin Levemir 30 units subcutaneous twice a day, Xalatan eye drops, losartan 100 mg by mouth daily, rosuvastatin 20 mg at bedtime, prednisone eye drops, Velphoro 500 mg by mouth twice a day with meals, and Timolol eye drops. ASSESSMENT: A 64-year-old male with end-stage renal disease on peritoneal dialysis, peripheral vascular disease, diabetes mellitus type 2, hypertension, admitted this time with infection, cellulitis and osteomyelitis of left second and third digit, status post amputation of left index and middle fingers. PLAN: 1. End-stage renal disease. The patient is currently on peritoneal dialysis. He reports that he uses a mixture of 1.5% and 2.5% at nighttime. His home regimen is fill volume 2300 mL four exchanges at nighttime with the cycler and one midday exchange of 1600 mL. However, in the hospital, I am going to continue him on five manual exchanges a day, each exchange 2 liters with a mixture of three exchanges of 1.5% and two exchanges of 2.5%, and depending upon his volume status, I will change his regimen tomorrow. 2. Hypertension. Blood pressures are still elevated. Continue current dose of Cardizem and losartan. I am also adding the hydralazine with holding parameters. 3. Status post left index and middle finger amputations. The patient is getting empiric antibiotic. Cultures are pending. Rest of the management is as per orthopedic surgery. 4. Diabetes mellitus, type 2. The patient is insulin dependent. Continue current dose of Levemir and insulin sliding scale. 5. Secondary hyperparathyroidism of renal origin. Continue current dose of Sensipar 30 mg by mouth every Monday, Monday, Monday. 6. Chronic kidney disease and mineral bone disease. Continue current dose of Velphoro 500 mg by mouth twice a day with meals. Thank you for involving me in the care of this patient. I shall be happy to follow the patient along with you tomorrow morning.
--- NOTE | 2019-12-14 19:38 | ECGEPIP ---
[facility] Test Date: 2019-12-14 Pat Name: RYDER DASILVA Department: Room: [place] [address] Gender: Male Pacu Rn: EUNICE : 1955 Requested By: YANETH SHARIF Order Number: [id number] Reading MD: Uli Null Measurements Intervals [place] Rate: 84 P: 27 WY: 172 QRS: 42 QRSD: 125 T: -13 QT: 390 QTc: 462 Interpretive Statements Normal sinus rhythm Right bundle branch block No significant change when compared to prior tracing of 10/02/2019 Electronically Signed on 12-14-2019 19:38:09 EDT by Uli Null
[2019-12-14] MEDS: ROSUVASTATIN 10 MG TAB (CRESTOR) PO SCH (21:10)
[2019-12-14] MEDS: MEROPENEM INJ 500 MG in IV 1 EA IV SCH (21:15)
[2019-12-14] MEDS: LATANOPROST 0.005% OPHTH SOLN 2.5 ML OU SCH (21:22)
[2019-12-14 22:00] VITALS: BP 146/52
[2019-12-15] MEDS: **hydrALAZINE HCL** 25 MG TAB PO SCH ×3 (05:53→21:54)
[2019-12-15] MEDS: HEPARIN SOD (PORCINE) 5000UNITS/ML VIAL (J1644 PER 1000UNITS) SQ SCH ×3 (05:54→21:55)
[2019-12-15 06:00] VITALS: BP 177/80
[2019-12-15] MEDS: HumaLOG INSULIN (NovoLOG) PER UNIT SC SCH ×4 (07:30→21:00)
[2019-12-15 07:40] LABS: HEMATOCRIT 28.5 % (42.0-52.0); MEAN CORPUSCULAR HEMOGLOBIN 31.9 pg (27.0-33.0); MEAN CORPUSCULAR HGB CONC 31.6 g/dl (32.0-36.5); MEAN CORPUSCULAR VOLUME 101.1 fl (80.0-96.0); PLATELET COUNT, AUTOMATED 349 10^3/uL (150-450); RED BLOOD COUNT 2.82 10^6/uL (4.30-6.10); WHITE BLOOD COUNT 15.5 10^3/uL (4.0-10.0)
[2019-12-15] MEDS: SUCROFERRIC OXYHYDROXIDE 500MG CHEW TAB (VELPHORO) PO SCH ×2 (08:00→17:20)
[2019-12-15 08:13] LABS: ERYTHROCYTE SEDIMENTATION RATE 126 mm/hr (0-20)
[2019-12-15 08:19] LABS: CALCIUM LEVEL 8.6 MG/DL (8.8-10.2); GLOMERULAR FILTRATION RATE 5.6 (>49); POTASSIUM SERUM 3.9 MEQ/L (3.5-5.1); TROPONIN I 0.08 NG/ML (< 0.10); VANCOMYCIN RANDOM 21.1 UG/ML
[2019-12-15] MEDS: prednisoLONE ACET 1% OPHTH SUSP 5ML OS SCH ×2 (08:20→21:56)
[2019-12-15] MEDS: ATROPINE SULFATE 1% OP SOLN 2 ML BTL OS SCH (08:20)
[2019-12-15] MEDS: BRINZOLAMIDE 1 % OPHTH SUSP (AZOPT) 10ML OS SCH ×2 (08:20→21:56)
[2019-12-15] MEDS: TIMOLOL MALEATE 0.5% OPHTH SOLN 5 ML OU SCH ×2 (08:20→21:56)
[2019-12-15] MEDS: BRIMONIDINE 0.15% OPHTH SOLN 5 ML OU SCH ×2 (08:20→21:55)
[2019-12-15] MEDS: CLOPIDOGREL 75 MG TAB PO SCH (08:21)
[2019-12-15] MEDS: LOSARTAN 50 MG TAB PO SCH (08:21)
[2019-12-15] MEDS: DOCUSATE SODIUM 100 MG CAP PO SCH (08:21)
[2019-12-15] MEDS: LACTOBACILLUS ACIDOPHILUS CAP (BACID) PO SCH (08:22)
[2019-12-15] MEDS: ASPIRIN 81 MG CHEW TABLET PO SCH (08:22)
[2019-12-15] MEDS: LEVEMIR (INSULIN DETEMIR) 1 UNITS/0.01ML SC SCH ×2 (08:22→21:55)
--- NOTE | 2019-12-15 12:27 | IPNPDOC ---
Date Seen The patient was seen on 12/15/19. Progress Note SUBJECTIVE: 64-year-old male with past medical history of end-stage renal disease, diabetes mellitus, severe peripheral vascular disease and hypertension was admitted for osteomyelitis of second and third digits of the left hand. Patient underwent amputation of second and third digits of the left hand, has been doing well postop, no complaints at this time, no acute events overnight. Patient did have some bleeding after dressing change in the morning. Patient is currently undergoing peritoneal dialysis. Patient eager to go home, denies any shortness of breath, chest pain, nausea, vomiting, abdominal pain, diarrhea or constipation. 10 point review of system is negative except for above PHYSICAL EXAMINATION: VITAL SIGNS: Please see below. GENERAL: No distress HEENT: Normocephalic, atraumatic, moist mucous membranes NECK: Supple CARDIOVASCULAR EXAMINATION: S1, S2 RESPIRATORY EXAMINATION: Clear to auscultation, no wheezing ABDOMINAL EXAMINATION: Soft, nontender, nondistended, positive bowel sounds EXTREMITIES: Status post right lower extremity BKA, left hand with dressing in place, blood-tinged SKIN: No rash NEUROLOGICAL EXAMINATION: Alert and oriented 3, no focal deficits PSYCHIATRIC EXAMINATION: Calm and cooperative LABORATORY DATA, IMAGING STUDIES, MICROBIOLOGY: Please see below. ASSESSMENT AND PLAN: This is a -year-old RACE GENDER with . PROBLEMS: 1. Osteomyelitis of left hand: Involving second and third digits, status post amputation of second and third digits of the left hand, continue empiric vancomycin/Merrem, cultures growing faecalis so far, will await for finalization prior to downgrading his antibiotics, infectious disease eval pending. 2. End-stage renal disease: Currently on peritoneal dialysis, management as per nephrology. 3. Diabetes mellitus: Decrease Levemir to 25 units twice a day, continue sliding scale insulin with meals and at bedtime. 4. Peripheral vascular disease: Continue aspirin, Plavix and statin 5. Hypertension: Continue losartan and hydralazine DVT prophylaxis: Heparin subcutaneous. GI prophylaxis: Not needed VS, I&O, 24H, Fishbone Vital Signs/I&O Vital Signs Date Time Temp Pulse Resp B/P (MAP) Pulse Ox O2 Delivery O2 Flow Rate FiO2 12/15/19 08:21 159/82 12/15/19 08:21 88 12/15/19 06:00 98.7 16 95 Room Air 12/13/19 19:45 10 I&O- Last 24 Hours up to 6 AM 12/15/19 05:59 Intake Total 9240 ml Output Total 8100 ml Balance 1140 ml Laboratory Data 24H LABS Laboratory Tests 2 12/14/19 13:13: Troponin I 0.09# 12/14/19 16:45: Bedside Glucose (Misc Panel) 155H 12/14/19 21:54: Bedside Glucose (Misc Panel) 165H 12/15/19 07:20: Troponin I 0.08, Nucleated Red Blood Cells % (auto) 0.0, Erythrocyte Sedimentation Rate 126H, Anion Gap 13, Glomerular Filtration Rate 5.6L, Calcium Level 8.6L, Random Vancomycin Level 21.1 12/15/19 07:36: Bedside Glucose (Misc Panel) 82 12/15/19 12:18: Bedside Glucose (Misc Panel) 125H CBC/BMP Laboratory Tests 12/15/19 07:20 Microbiology Microbiology 12/13/19 Gram Stain - Final, Resulted 12/13/19 Body Fluid Culture, Resulted Pending 12/13/19 Fungal Smear, Received Pending 12/13/19 Fungal Culture, Received Pending 12/13/19 Gram Stain - Final, Resulted 12/13/19 Wound Culture - Final, Resulted Enterococcus Faecalis 12/13/19 Anaerobic Culture, Resulted Pending 12/13/19 Fungal Smear, Received Pending 12/13/19 Fungal Culture, Received Pending 12/13/19 Fungal Smear, Received Pending 12/13/19 Fungal Culture, Received Pending 12/13/19 Gram Stain - Final, Resulted 12/13/19 Wound Culture, Resulted Pending 12/13/19 Anaerobic Culture, Resulted Pending 12/13/19 Gram Stain - Final, Resulted 12/13/19 Wound Culture, Resulted Pending 12/13/19 Anaerobic Culture, Resulted Pending 12/13/19 Blood Culture - Preliminary, Resulted No Growth after 48 hours. All Specime... 12/13/19 Blood Culture - Preliminary, Resulted No Growth after 48 hours. All Specime... SHANNAN WADSWORTH MD December 15, 2019 12:27
[2019-12-15 14:00] VITALS: BP 165/72
[2019-12-15] MEDS: MEROPENEM INJ 500 MG in IV 1 EA IV SCH (21:52)
[2019-12-15] MEDS: ROSUVASTATIN 10 MG TAB (CRESTOR) PO SCH (21:54)
[2019-12-15] MEDS: LATANOPROST 0.005% OPHTH SOLN 2.5 ML OU SCH (21:55)
[2019-12-15 22:00] VITALS: BP 160/82
[2019-12-16] MEDS: **hydrALAZINE HCL** 25 MG TAB PO SCH ×2 (05:55→14:18)
[2019-12-16] MEDS: HEPARIN SOD (PORCINE) 5000UNITS/ML VIAL (J1644 PER 1000UNITS) SQ SCH ×2 (05:56→14:17)
[2019-12-16 06:00] VITALS: BP 151/69
[2019-12-16 07:17] LABS: HEMOGLOBIN 9.2 g/dl (13.5-17.5); MEAN CORPUSCULAR HEMOGLOBIN 31.8 pg (27.0-33.0); MEAN CORPUSCULAR HGB CONC 31.7 g/dl (32.0-36.5); MEAN CORPUSCULAR VOLUME 100.3 fl (80.0-96.0); PLATELET COUNT, AUTOMATED 366 10^3/uL (150-450); RED BLOOD COUNT 2.89 10^6/uL (4.30-6.10); WHITE BLOOD COUNT 15.2 10^3/uL (4.0-10.0)
[2019-12-16] MEDS: HumaLOG INSULIN (NovoLOG) PER UNIT SC SCH ×2 (07:24→12:19)
[2019-12-16] MEDS: LEVEMIR (INSULIN DETEMIR) 1 UNITS/0.01ML SC SCH (07:25)
[2019-12-16 07:52] LABS: CALCIUM LEVEL 8.9 MG/DL (8.8-10.2); CREATININE FOR GFR 10.2 MG/DL (0.70-1.30); GLOMERULAR FILTRATION RATE 5.5 (>49); POTASSIUM SERUM 3.5 MEQ/L (3.5-5.1); TROPONIN I 0.04 NG/ML (< 0.10); VANCOMYCIN RANDOM 22.6 UG/ML
[2019-12-16 08:02] LABS: ERYTHROCYTE SEDIMENTATION RATE 127 mm/hr (0-20)
[2019-12-16] MEDS: SUCROFERRIC OXYHYDROXIDE 500MG CHEW TAB (VELPHORO) PO SCH (09:48)
[2019-12-16] MEDS: LACTOBACILLUS ACIDOPHILUS CAP (BACID) PO SCH (09:48)
[2019-12-16] MEDS: DOCUSATE SODIUM 100 MG CAP PO SCH (09:48)
[2019-12-16] MEDS: ASPIRIN 81 MG CHEW TABLET PO SCH (09:48)
[2019-12-16] MEDS: LOSARTAN 50 MG TAB PO SCH (09:49)
[2019-12-16] MEDS: CLOPIDOGREL 75 MG TAB PO SCH (09:49)
[2019-12-16] MEDS: TIMOLOL MALEATE 0.5% OPHTH SOLN 5 ML OU SCH (09:50)
[2019-12-16] MEDS: BRIMONIDINE 0.15% OPHTH SOLN 5 ML OU SCH (09:50)
[2019-12-16] MEDS: ATROPINE SULFATE 1% OP SOLN 2 ML BTL OS SCH (09:50)
[2019-12-16] MEDS: prednisoLONE ACET 1% OPHTH SUSP 5ML OS SCH (09:51)
[2019-12-16] MEDS: BRINZOLAMIDE 1 % OPHTH SUSP (AZOPT) 10ML OS SCH (09:51)
[2019-12-16 14:00] VITALS: BP 154/65
[2019-12-16 14:18] VITALS: BP 154/65
--- NOTE | 2019-12-16 14:35 | REP ---
LEFT LOWER EXTREMITY DUPLEX DOPPLER ARTERIAL ULTRASOUND: Real-time ultrasound examination and duplex Doppler interrogation of the left lower extremity arterial system is performed. The patient has a history of placement of stent in the distal left superficial femoral artery and popliteal artery as well as angioplasty of anterior posterior tibial arteries, performed 10/18/2019. Significant calcific plaque in the arterial structures of the left lower extremity limits color Doppler imaging. There is a patent stent in the distal superficial femoral artery and popliteal artery. Flow cannot be seen in the left posterior tibial artery either proximally or distally. Flow is detected in the anterior tibial artery only with pulse wave evaluation. Visualized arterial structures demonstrate no evidence of significant stenosis. Triphasic and biphasic waveforms are seen diffusely. There is monophasic waveform identified in the proximal and distal anterior tibial artery. Left Peak Systolic Velocity Common femoral artery 9 cm/s Profunda 60 cm/s Proximal SFA 118 cm/s Mid SFA 83 cm/s Distal SFA 47 cm/s Popliteal 52 cm/s Proximal MILTON 37 cm/s Tibial peroneal trunk 77 cm/s Posterior tibial artery no flow Distal MILTON 35 cm/s Electronically Signed by Herrera Easley MD 12/16/2019 02:45 P
--- NOTE | 2019-12-16 14:39 | IPNPDOC ---
Text Note Date of Service The patient was seen on 12/16/19. NOTE SUBJECTIVE: 64 year old male admitted for dry and wet gangrene to 2nd/3rd digits of LUE s/p 2nd/3rd digit amputation on 12/13/2019. No acute events overnight. He denies any fever, chills, chest pain, difficulty breathing, abdominal pain, nausea, vomiting. OBJECTIVE: PHYSICAL EXAMINATION: Vitals: (see below) General: No acute distress, laying comfortably in bed. HEENT: Normocephalic, atraumatic. EOMI. No scleral icterus. Moist mucous membranes. No pharyngeal erythema or uvular deviation. Neck: No JVD or lymphadenopathy Cardiac: RRR, Normal S1 and S2, No murmurs, gallops, rubs. Pulm: Clear to auscultation b/l. Symmetric thorax. No wheezing, crackles, rhonchi Abd: Bowel Sounds present. Abdomen is soft, non-tender, non-distended. Ext: R-BKA. Left hand wrapped with bandage. Neuro: No focal neuro deficits. ASSESSMENT AND PLAN: #. Wet/dry gangrene of LUE s/p finger amputation x2. -Empirical abx based on wound cultures done of 2nd digit on 12/04 and 12/05 for citrobacter and enterobacter -Fungal cultures pending, blood cultures showing no growth after 72 hours. -Orthopedic surgery consulted, recommendations appreciated. s/p amputation of the second and third fingers -ID consulted, recommendations appreciated. #. End-stage renal disease. - On peritoneal dialysis - Nephrology consulted for dialysis during hospitalization. #. Peripheral vascular disease. Continue aspirin and plavix. Continue statin - Vascular surgery consulted, recommendations appreciated. #. Diabetes mellitus. Levemir 30 units BID along with sliding scale insulin coverage with meals and at bedtime. #. Hypertension -Continue home meds, IV hydralazine if needed. -DVT prophy: heparin DISPO:Patient discharged today, please see discharge summary Attending attestation: I evaluated and examined the patient in person; I discussed the care with Resident in detail and agree with the plan above. VS,Fishbone, I+O VS, Fishbone, I+O Laboratory Tests 12/16/19 07:01 Vital Signs Date Time Temp Pulse Resp B/P (MAP) Pulse Ox O2 Delivery O2 Flow Rate FiO2 12/16/19 14:18 154/65 12/16/19 14:00 98.2 73 18 98 Room Air 12/13/19 19:45 10 I&O- Last 24 Hours up to 6 AM 12/16/19 05:59 Intake Total 81402 ml Output Total 08355 ml Balance 450 ml ZOYA REYES D.O. December 16, 2019 14:39 SHANNAN WADSWORTH MD December 17, 2019 20:05
[2019-12-16] MEDS ORDERED: FLAG500T PO (14:53)
[2019-12-16] MEDS ORDERED: LEVA750T7 PO (14:53)
--- NOTE | 2019-12-16 15:38 | IPN ---
DATE OF SERVICE: 12/15/2019 SUBJECTIVE: The patient was seen and examined at the bedside today morning. The patient is afebrile, hemodynamically stable. She is tolerating the peritoneal dialysis. He continues to been IV antibiotics. Leukocytosis is getting better. Pain in the left hand is optimized at this time. OBJECTIVE: Vital Signs: Temperature is 98.7 degrees Fahrenheit, blood pressure 159/82, pulse is 88, respiratory rate of 16, saturating 95% on room air. Intake/Output: The patient is getting about 200 mL ultrafiltration with each peritoneal exchanges 1.5% dialysate and about 500 mL ultrafiltration (UF) with 2.5% dialysate. PHYSICAL EXAMINATION: General: The patient is awake, alert, oriented times three, laying in bed in no apparent distress. Head/Neck Exam: Extraocular muscles intact. Pupils equally round and reactive to light. Mucous membranes are moist. Neck is supple. There is no jugular venous distention (JVD). Cardiovascular: S1, S2, regular rate. No edema of the bilateral lower extremities. Respiratory: Chest is clear to auscultation bilaterally. Bilateral equal air entry. No rales or rhonchi. Abdomen: Soft. Positive bowel sounds. Left lower quadrant peritoneal dialysis catheter exit site is clean. Musculoskeletal: Patient has waffle boot in the left leg and there is a left heel ulcer. The patient has a right below-knee amputation. The patient has a dressing on the left hand. He is status post a right index and middle finger amputation. Central Nervous System (SPORTS MANAGER): No focal deficit. Power is 5/5 in all extremities. LAB REVIEW: CBC showed WBC of 15.5, hemoglobin is 9, platelets of 349. BMP showed sodium 136, potassium 3.9, chloride 97, bicarbonate 26, BUN 76, creatinine is 10, calcium 8.6. Vancomycin level is 21.1. Microbiology: Wound culture gram stain came back positive for Enterococcus faecalis. CURRENT INPATIENT MEDICATIONS: The patient's medications were all reviewed by me. He continues to be on IV meropenem and IV vancomycin. Insulin Levemir dose has been decreased to 25 units subcu twice a day. No other change in the medications today as compared with yesterday. ASSESSMENT/PLAN: 1. End-stage renal disease. The patient is on peritoneal dialysis. Continue the current regimen of five manual exchanges a day all 2 liters, three of them 1.5% and two of them 2.5%. 2. Hypertension. Blood pressure is better controlled. Continue current dose of Cardizem, losartan, and hydralazine. 3. Status post left index and middle finger amputation with Enterococcus faecalis infection. The patient is currently getting vancomycin and meropenem. Leukocytosis is getting better. 4. Diabetes mellitus, type 2, insulin dependent. Levemir dose has been decreased because of hypoglycemic episodes. 5. Anemia in end-stage renal disease. The patient was started on Aranesp yesterday. Hemoglobin level is stable. MTDD
--- NOTE | 2019-12-16 16:34 | CR.PDOC ---
General Date of Consultation: December 16, 2019 Consultation REASON FOR CONSULTATION/CHIEF COMPLAINT: Peripheral vascular disease and nonhealing wound left heel HISTORY OF PRESENT ILLNESS: Mr. Lawson is a very pleasant 64-year-old gentleman with a complicated peripheral vascular history. He is status post right lower extremity amputation, has a fairly chronic left heel eschar that is somewhat stable but not necessarily improving, status post left lower extremity arteriogram and intervention with improvement of tibial flow over a month ago. Today I discussed with him the need for a repeat arterial duplex of the left lower extremity to evaluate for worsening arterial disease. Unfortunately, his tibial disease is severe, and we were able to open up flow to his posterior tibial artery distally, which is the angiosome for the heel, however I did not anticipate this would remain patent long-term due to the heavy dense nature of the calcified tibial arterial disease. We therefore want to check and see if we still have arterial flow through the posterior tibial artery, and if not we like to discuss options for repeat arteriogram. The patient is agreeable to this plan. Additionally, the patient has a known history of a nonhealing wound on the left index finger distally. This progressed from a nonhealing wound to an eschar to dry gangrene of the tip of the left index finger. At the time of his right lower extremity amputation, we also banded his left brachiocephalic AV fistula to give him additional flow to the hand. He did have a palpable radial pulse, but it was not a strong pulse and I felt additional flow might heal the finger. Unfortunately, the gangrene did not improve. This is likely in part because of the chronicity of the gangrene, in part because the patient was using his hand extensively for transfers after amputation, in part because of chronic arterial disease, and in part because of ongoing flow through the fistula. The fistula was in place as a backup access. The patient used peritoneal dialysis at home. When the patient was in the hospital requiring access for hemodialysis, the request was made for PermCath. The hospital dialysis nurses were not comfortable accessing the patient's fistula because it had not been accessed outpatient before. Because we were not using the fistula as a backup access as it was intended, I felt the safest thing was to ligate the brachiocephalic fistula to provide additional blood flow to the hand. After this, the patient was seen back in clinic and was noted to have increased swelling of the index finger and erosion over the dorsal aspect of the third PIP joint with cellulitis. He was started on antibiotics, and cultures were taken in clinic. The dry gangrene of the first digit was removed in wound care clinic. I discussed this case with Dr. Owen and arrange for the patient to have a follow-up clinic appointment early the following week. The patient did not follow up with Dr. Owen, but eventually was seen at the wound care clinic with worsening symptoms in his hand and was sent to the emergency room for further evaluation. He was then taken to the OR with Dr. Owen for amputation of the left index finger and third digit. He is now recovering from this, and the wounds are healing well. He still has some mild erythema around the sutures, but hopefully this will improve with time and antibiotics. The hospitalist and nephrology are managing his extensive medical issues. Dr. Bernal is also following for infectious disease consult and antibiotic recommendations. We appreciate their management. I have reviewed the patient's arterial duplex from today. It reveals that the mid and distal posterior tibial artery flow has reoccluded status post inter vention. Unfortunately, without better flow through the posterior tibial artery which supplies the angiosome of the heel, I am not sure he will be able to heel the wound on the left heel. We certainly want to be in its aggressive as possible so he does not have bilateral limb loss, and therefore we have discussed the option for repeat arteriogram with the patient. We will try to get this on the schedule as soon as possible and have stressed the importance of proceeding with the patient. I do think it is okay for him to go home today, as is his strong wish, and we can do this as an outpatient. He is agreeable to this plan. ALLERGIES: Please see below. HOME MEDICATIONS: Please see below. PAST MEDICAL HISTORY: Severe peripheral vascular disease of the upper and lower extremities, hypertens ion, diabetes, hypercholesterolemia, end-stage renal disease on peritoneal dialysis, congestive heart failure, glaucoma PAST SURGICAL HISTORY: PermCath placement, right below-knee amputation, AV fistula creation and ligation, left index and third finger amputation, arteriograms bilateral lower extremities FAMILY HISTORY: Lung cancer, diabetes, cancer the brain SOCIAL HISTORY: Patient is and lives with his . He denies tobacco alcohol or illicit drug use. REVIEW OF SYSTEMS: CONSTITUTIONAL: Positive fatigue HEENT: No new vision changes CARDIOVASCULAR: Denies chest pain RESPIRATORY: Positive shortness of breath on exertion GENITOURINARY: Positive for end-stage renal disease on dialysis MUSCULOSKELETAL: Positive for ambulatory dysfunction due to right below-knee amputation, positive peripheral vascular disease GASTROINTESTINAL: Denies nausea vomiting diarrhea SKIN: Positive for wounds left distal index finger and left third dorsal PIP joint wound, positive left heel eschar NEUROLOGICAL: Denies TA or stroke. Denies headache or seizures. PSYCHIATRIC: Denies anxiety or depression. ENDOCRINE: Positive for diabetes. HEMATOLOGIC/LYMPHATIC: Denies anemia or clotting disorders ALLERGIC/IMMUNOLOGIC: Denies. PHYSICAL EXAMINATION: VITAL SIGNS: Please see below. GENERAL APPEARANCE: No acute distress. Medically stable. HEENT: Normocephalic. RESPIRATORY: Clear to auscultation. CARDIOVASCULAR: Regular rate and rhythm. ABDOMEN: Obese, soft, nontender. EXTREMITIES: Right below-knee amputation incision well healed. Left heel eschar stable. Left hand sutures intact with mild erythema around sutures but no purulent drainage, no bruising, no bleeding. NEUROLOGICAL: Alert and oriented 3. Moves all extremities equally. PSYCHIATRIC: Pleasant and cooperative. LABORATORY DATA: Please see below. ASSESSMENT/PLAN: Very pleasant 64-year-old gentleman with severe upper and lower extremity peripheral vascular disease status post left brachiocephalic AV fistula creation, banding, then ligation; right lower extremity TMA, then below- knee amputation; left lower extremity arteriogram and tibial intervention with recurrent posterior tibial artery occlusion; status post left index finger and third digit amputation with Dr. Owen. 1. Following the patient's arterial duplex today, we recommend left lower extremity re-intervention to try to open up tibial flow through the posterior tibial artery and provide flow through the Angiosome of the heel in order to possibly help heal the wound. 2. Continue aspirin statin and Plavix. Hold Plavix 2 days before the procedure and the day of, we will started directly after. 3. Okay for discharge today from a vascular standpoint. We appreciate the opportunity to participate in the care of this patient. Vital Signs/I&O Vital Signs Date Time Temp Pulse Resp B/P (MAP) Pulse Ox O2 Delivery O2 Flow Rate FiO2 12/16/19 14:18 154/65 12/16/19 14:00 98.2 73 18 98 Room Air 12/13/19 19:45 10 I&O- Last 24 Hours up to 6 AM 12/16/19 06:00 Intake Total 86860 ml Output Total 51381 ml Balance 90 ml Laboratory Data Labs 24H Laboratory Tests 2 12/15/19 16:42: Bedside Glucose (Misc Panel) 132H 12/15/19 20:37: Bedside Glucose (Misc Panel) 107 12/16/19 06:45: Bedside Glucose (Misc Panel) 65L 12/16/19 07:01: Nucleated Red Blood Cells % (auto) 0.0, Erythrocyte Sedimentation Rate 127H, Anion Gap 13, Glomerular Filtration Rate 5.5L, Calcium Level 8.9, Troponin I 0.04#, Random Vancomycin Level 22.6 12/16/19 07:06: Bedside Glucose (Misc Panel) 68L 12/16/19 08:31: Bedside Glucose (Misc Panel) 154H 12/16/19 11:48: Bedside Glucose (Misc Panel) 219H CBC/BMP Laboratory Tests 12/16/19 07:01 Microbiology Microbiology 12/13/19 Gram Stain - Final, Complete 12/13/19 Body Fluid Culture - Final, Complete 12/13/19 Fungal Smear, Received Pending 12/13/19 Fungal Culture, Received Pending 12/13/19 Gram Stain - Final, Resulted 12/13/19 Wound Culture - Final, Resulted Enterococcus Faecalis 12/13/19 Anaerobic Culture, Resulted Pending 12/13/19 Fungal Smear, Received Pending 12/13/19 Fungal Culture, Received Pending 12/13/19 Fungal Smear, Received Pending 12/13/19 Fungal Culture, Received Pending 12/13/19 Gram Stain - Final, Complete 12/13/19 Wound Culture - Final, Complete Citrobacter Braakii Enterococcus Faecalis 12/13/19 Anaerobic Culture - Final, Complete 12/13/19 Gram Stain - Final, Resulted 12/13/19 Wound Culture - Final, Resulted Enterococcus Faecalis 12/13/19 Anaerobic Culture, Resulted Pending 12/13/19 Blood Culture - Preliminary, Resulted No Growth after 72 hours. All specime... 12/13/19 Blood Culture - Preliminary, Resulted No Growth after 72 hours. All specime... Allergies Coded Allergies: acetazolamide (Verified Adverse Reaction, Severe, CONVULSIONS, 11/19/19) Home Medications Scheduled Aspirin (Aspir 81) 81 Mg Tablet.dr, 81 MG PO DAILY, (Reported) Atropine Sulfate (Atropine Sulfate) 1% 2ML Drops, 1 DROP OS DAILY, (Reported) Bimatoprost (Lumigan) 50 Drop/2.5 Ml Karla, 1 DROP OU QHS, (Reported) Brimonidine Tartrate/Timolol (Combigan 0.2%-0.5% Eye Drops) 5 Ml Drops, 1 DROP OU BID, (Reported) Brinzolamide (Azopt) 1% 10ML Drops.susp, 1 DROP OS BID, (Reported) Cephalexin (Cephalexin) 500 Mg Capsule, 500 MG PO BID, (Reported) STARTED 12/05/19 FOR 7 DAYS Cholecalciferol (Vitamin D3) (Vitamin D3) 1,000 Unit Tablet, 1,000 UNITS PO DAILY, (Reported) Cinacalcet (Sensipar) 30 Mg Tablet, 30 MG PO 3XW, (Reported) QPM: MON, WED, FRI Clopidogrel Bisulfate (Clopidogrel) 75 Mg Tablet, 75 MG PO DAILY, (Reported) Diltiazem HCl (Diltiazem HCl) 60 Mg Tablet, 60 MG PO BID, (Reported) Docusate Sodium (Stool Softener) 100 Mg Capsule, 100 MG PO DAILY, (Reported) HAS NOT BEEN TAKING DUE TO ANTIBIOTICS Insulin Glargine (Lantus) 100 Unit/1 Ml Vial, 65 UNITS SC QAM, (Reported) Insulin Glargine (Lantus) 100 Unit/1 Ml Vial, 45 UNITS SC QPM, (Reported) Insulin Human Lispro (Humalog) 1 Units/0.01 Ml Inj, 1 DOSE SC AC, (Reported) PER SLIDING SCALE Lactobacillus Combo No.10 (Probiotic) 1 Each Capsule, 1 CAP PO DAILY, (Reported) Levofloxacin (Levaquin) 750 Mg Tablet, 1 TAB PO DAILY for 10 Days, #10 Losartan Potassium (Losartan Potassium) 50 Mg Tablet, 100 MG PO DAILY, (Reported) Metronidazole (Flagyl) 500 Mg Tablet, 500 MG PO Q8H for 10 Days, #30 FOR 10 DAYS Prednisolone Acetate (Prednisolone Acetate 1% Opth Susp) 5 Ml Drops.susp, 1 DROP OS BID, (Reported) Rosuvastatin Calcium (Rosuvastatin Calcium) 20 Mg Tablet, 20 MG PO QHS, (Reported) Sucroferric Oxyhydroxide (Velphoro) 500 Mg Tab.chew, 500 MG PO BIDWM, (Reported) Vit B Comp No.3/Folic/C/Biotin (Jaz-Basilio Rx Tablet) 1 Each Tablet, 1 TAB PO DAILY, (Reported) Scheduled PRN Loratadine (Claritin) 10 Mg Capsule, 10 MG PO DAILY PRN for ALLERGIES, (Reported) ZACARIAS PATRICK MD December 16, 2019 16:34
--- NOTE | 2019-12-16 16:42 | DS.PDOC ---
Discharge Summary General Date of Admission December 13, 2019 at 14:43 Date of Discharge Dec 16 2019 Attending Physician: SHANNAN WADSWORTH MD Discharge Summary PROCEDURES PERFORMED DURING STAY: Left hand second and third digit amputation. ADMITTING DIAGNOSES: 1. Osteomyelitis of the left second and third digits of the hand. 2. End-stage renal disease on peritoneal dialysis. 3. Peripheral vascular disease. 4. Diabetes mellitus. 5. Hypertension DISCHARGE DIAGNOSES: 1. Osteomyelitis of the left second and third digits of the hand s/p amputation 2. End-stage renal disease on peritoneal dialysis. 3. Peripheral vascular disease. 4. Diabetes mellitus. 5. Hypertension COMPLICATIONS/CHIEF COMPLAINT: Diabetes Mellitus. HISTORY OF PRESENT ILLNESS: Patient is a 64 year old male presenting from Dr. Uriarte's office with chief complaint of left hand swelling for the past week. On 11/25/2019, Dr. Sheldon took him to the OR for ligation of his left- brachiocephalic fistula in an attempt to save his hand from further ischemia as he had a 2 month history of progressively worsening dry gangrene in the digits of his left hand. His left index and 2nd digit were debrided on Monday and he was started on Cipro and keflex, however when his left index finger was evaluated again today pus erupted out of the digit and his left third digit was found to have a tear of his extensor tendon with bone visible on the dorsal aspect of the digit. He presented to the ED where he was found to have a WBC count of 20, elevated ESR and CRP so the hospitalist service was consulted for admission. HOSPITAL COURSE: Patient was admitted to the hospital and started on empiric antibiotics to cover for Citrobacter, Enterobacter, and Staphylococcus species from wound cultures. Orthopedic surgery was consulted and decided to amputate the left second and third digits due to concern for osteomyelitis. The patient showed clinical improvement postoperatively and with appropriate antibiotic coverage. Infectious disease was consulted and decided on a regimen of Levaquin and Flagyl oral antibiotics for 10 days upon discharge. Vascular surgery was also consulted and decided to follow-up with the patient in the outpatient setting for possible vascular intervention. On day of discharge, patient was f ound to be stable and safe for discharge home. DISCHARGE MEDICATIONS: Please see below. ALLERGIES: Please see below. PHYSICAL EXAMINATION ON DISCHARGE: VITAL SIGNS: Please see below. General: No acute distress, laying comfortably in bed. HEENT: Normocephalic, atraumatic. EOMI. No scleral icterus. Moist mucous membranes. No pharyngeal erythema or uvular deviation. Neck: No JVD or lymphadenopathy Cardiac: RRR, Normal S1 and S2, No murmurs, gallops, rubs. Pulm: Clear to auscultation b/l. Symmetric thorax. No wheezing, crackles, rhonchi Abd: Bowel Sounds present. Abdomen is soft, non-tender, non-distended. Ext: R-BKA. Left hand wrapped with bandage. Neuro: No focal neuro deficits. LABORATORY DATA: Please see below. IMAGING: Hand XR: No acute bony erosive changes are seen. Status post amputation of the index finger at the level of the middle phalanx. Vascular calcification and soft tissue swelling. PROGNOSIS: Fair ACTIVITY: As tolerated DIET: Consistent carb DISCHARGE PLAN: Home, oral antibiotics DISCHARGE INSTRUCTIONS: 1. Please follow up with your PCP in 1 week 2. Take both antibiotics, Levaquin and Flagyl, for 10 days 3. If your symptoms return, call your PCP or return to the ED for further evaluation ITEMS TO FOLLOWUP ON ON OUTPATIENT: 1. Osteomyelitis 2. 2nd and 3rd digit amputations 3. Peripheral vascular disease DISCHARGE CONDITION: Stable. TIME SPENT ON DISCHARGE: Greater than 35 minutes. Attending attestation: I evaluated and examined the patient in person; I discussed the care with Resident in detail and agree with the plan above. Vital Signs/I&Os Vital Signs Date Time Temp Pulse Resp B/P (MAP) Pulse Ox O2 Delivery O2 Flow Rate FiO2 12/16/19 14:18 154/65 12/16/19 14:00 98.2 73 18 98 Room Air 12/13/19 19:45 10 I&O- Last 24 Hours up to 6 AM 12/16/19 06:00 Intake Total 71057 ml Output Total 20709 ml Balance 90 ml Laboratory Data Labs 24H Laboratory Tests 2 12/15/19 16:42: Bedside Glucose (Misc Panel) 132H 12/15/19 20:37: Bedside Glucose (Misc Panel) 107 12/16/19 06:45: Bedside Glucose (Misc Panel) 65L 12/16/19 07:01: Nucleated Red Blood Cells % (auto) 0.0, Erythrocyte Sedimentation Rate 127H, Anion Gap 13, Glomerular Filtration Rate 5.5L, Calcium Level 8.9, Troponin I 0.04#, Random Vancomycin Level 22.6 12/16/19 07:06: Bedside Glucose (Misc Panel) 68L 12/16/19 08:31: Bedside Glucose (Misc Panel) 154H 12/16/19 11:48: Bedside Glucose (Misc Panel) 219H CBC/BMP Laboratory Tests 12/16/19 07:01 FSBS Laboratory Tests Test 12/15/19 16:42 12/15/19 20:37 12/16/19 06:45 12/16/19 07:06 Range/Units Bedside Glucose (Misc Panel) 132 107 65 68 80-115 MG/DL Test 12/16/19 08:31 12/16/19 11:48 Range/Units Bedside Glucose (Misc Panel) 154 219 80-115 MG/DL Microbiology Microbiology 12/13/19 Gram Stain - Final, Complete 12/13/19 Body Fluid Culture - Final, Complete 12/13/19 Fungal Smear, Received Pending 12/13/19 Fungal Culture, Received Pending 12/13/19 Gram Stain - Final, Resulted 12/13/19 Wound Culture - Final, Resulted Enterococcus Faecalis 12/13/19 Anaerobic Culture, Resulted Pending 12/13/19 Fungal Smear, Received Pending 12/13/19 Fungal Culture, Received Pending 12/13/19 Fungal Smear, Received Pending 12/13/19 Fungal Culture, Received Pending 12/13/19 Gram Stain - Final, Complete 12/13/19 Wound Culture - Final, Complete Citrobacter Braakii Enterococcus Faecalis 12/13/19 Anaerobic Culture - Final, Complete 12/13/19 Gram Stain - Final, Resulted 12/13/19 Wound Culture - Final, Resulted Enterococcus Faecalis 12/13/19 Anaerobic Culture, Resulted Pending 12/13/19 Blood Culture - Preliminary, Resulted No Growth after 72 hours. All specime... 12/13/19 Blood Culture - Preliminary, Resulted No Growth after 72 hours. All specime... Discharge Medications Scheduled Aspirin (Aspir 81) 81 Mg Tablet.dr, 81 MG PO DAILY, (Reported) Atropine Sulfate (Atropine Sulfate) 1% 2ML Drops, 1 DROP OS DAILY, (Reported) Bimatoprost (Lumigan) 50 Drop/2.5 Ml Karla, 1 DROP OU QHS, (Reported) Brimonidine Tartrate/Timolol (Combigan 0.2%-0.5% Eye Drops) 5 Ml Drops, 1 DROP OU BID, (Reported) Brinzolamide (Azopt) 1% 10ML Drops.susp, 1 DROP OS BID, (Reported) Cephalexin (Cephalexin) 500 Mg Capsule, 500 MG PO BID, (Reported) STARTED 12/05/19 FOR 7 DAYS Cholecalciferol (Vitamin D3) (Vitamin D3) 1,000 Unit Tablet, 1,000 UNITS PO DAILY, (Reported) Cinacalcet (Sensipar) 30 Mg Tablet, 30 MG PO 3XW, (Reported) QPM: MON, WED, FRI Clopidogrel Bisulfate (Clopidogrel) 75 Mg Tablet, 75 MG PO DAILY, (Reported) Diltiazem HCl (Diltiazem HCl) 60 Mg Tablet, 60 MG PO BID, (Reported) Docusate Sodium (Stool Softener) 100 Mg Capsule, 100 MG PO DAILY, (Reported) HAS NOT BEEN TAKING DUE TO ANTIBIOTICS Insulin Glargine (Lantus) 100 Unit/1 Ml Vial, 65 UNITS SC QAM, (Reported) Insulin Glargine (Lantus) 100 Unit/1 Ml Vial, 45 UNITS SC QPM, (Reported) Insulin Human Lispro (Humalog) 1 Units/0.01 Ml Inj, 1 DOSE SC AC, (Reported) PER SLIDING SCALE Lactobacillus Combo No.10 (Probiotic) 1 Each Capsule, 1 CAP PO DAILY, (Reported) Levofloxacin (Levaquin) 750 Mg Tablet, 1 TAB PO DAILY Losartan Potassium (Losartan Potassium) 50 Mg Tablet, 100 MG PO DAILY, (Reported) Metronidazole (Flagyl) 500 Mg Tablet, 500 MG PO Q8H FOR 10 DAYS Prednisolone Acetate (Prednisolone Acetate 1% Opth Susp) 5 Ml Drops.susp, 1 DROP OS BID, (Reported) Rosuvastatin Calcium (Rosuvastatin Calcium) 20 Mg Tablet, 20 MG PO QHS, ( Reported) Sucroferric Oxyhydroxide (Velphoro) 500 Mg Tab.chew, 500 MG PO BIDWM, (Reported) Vit B Comp No.3/Folic/C/Biotin (Jaz-Basilio Rx Tablet) 1 Each Tablet, 1 TAB PO DAILY, (Reported) Scheduled PRN Loratadine (Claritin) 10 Mg Capsule, 10 MG PO DAILY PRN for ALLERGIES, (Reported) Allergies Coded Allergies: acetazolamide (Verified Adverse Reaction, Severe, CONVULSIONS, 11/19/19) ZOYA REYES D.O. December 16, 2019 16:42 SHANNAN WADSWORTH MD December 17, 2019 19:55
[2019-12-16] MEDS ORDERED: LEVEMIR (INSULIN DETEMIR) 1 UNITS/0.01ML SC SCH (21:00)
[2019-12-16] MEDS ORDERED: MEROPENEM INJ 1 GM in IV 1 EA IV SCH (21:00)
--- NOTE | 2019-12-18 07:56 | IPN ---
DATE OF SERVICE: 12/16/2019 SUBJECTIVE: The patient was seen and examined at the bedside today morning. He is afebrile, hemodynamically stable. He is tolerating the peritoneal dialysis. Wound cultures are growing 2 organisms now which are sensitive to the antibiotic that he is getting. Leukocytosis is slightly improving. OBJECTIVE: Vital Signs: Temperature is 98.2 degrees Fahrenheit, blood pressure 154/65, pulse is 73, respiratory rate of 18, saturating 98% on room air. Weight in the bed scale is 99.5 kg. PHYSICAL EXAMINATION: General: The patient is awake, alert, oriented x3, laying in bed, in no apparent distress. Head and Neck Exam: Extraocular muscles intact. Pupils equally round and reactive to light. Mucous membranes are moist. Neck is supple. There is no jugular venous distention (JVD). Cardiovascular: S1, S2. Regular rate. No edema of the lower extremities. Respiratory: Chest is clear to auscultation bilaterally. Bilateral equal air entry. No rales or rhonchi. Abdomen: Soft, obese, positive bowel sounds. Left lower quadrant PD catheter exit site is clean. Musculoskeletal: He has a right below-knee amputation. Left foot ulcer which is covered with a dressing. He has a dressing on the left hand status post left index finger and middle finger amputation. 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 Power is 5/5 in bilateral upper extremities. LAB REVIEW: CBC showed WBC of 15.2, hemoglobin 9.2, platelets of 366. BMP showed sodium 138, potassium 3.5, chloride 98, bicarb 27, BUN 74, creatinine 10.2. Microbiology: Wound culture sent on 12/13/2019 is growing Citrobacter and Enterococcus faecalis. Blood cultures are negative so far. CURRENT INPATIENT MEDICATIONS: The patient continues to be on IV vancomycin and meropenem. I am going to increase the meropenem dose to 1 gram IV q. 24, insulin Levemir dose has been decreased to 20 units subcutaneous twice a day. ASSESSMENT/PLAN: 1. End-stage renal disease. Peritoneal dialysis dependent. Continue current regimen of five manual exchanges a day, three exchanges of 1.5% and two exchanges of 2.5%. 2. Hypertension. Blood pressure is controlled with current regimen of Cardizem, losartan and hydralazine. 3. Status post left index and middle finger amputation secondary to gangrene. Culture is growing Enterococcus faecalis and Citrobacter braakii. The patient is currently on vancomycin and meropenem. I have increased the meropenem dose to 1 gram IV daily. If recommended by infectious disease (ID), patient can be switched to oral Levaquin, that covers both organisms. 4. Diabetes mellitus type 2, insulin dependent. Levemir dose was further decreased secondary to hypoglycemic episodes. 5. Anemia in end-stage renal disease. The patient is currently on Aranesp. Hemoglobin level is improving.
--- NOTE | 2019-12-18 08:48 | CR ---
DATE OF CONSULTATION: 12/16/2019 REASON FOR CONSULTATION: Infected osteomyelitis of the 2nd and 3rd digits of the left hand. HISTORY OF PRESENT ILLNESS: Patient is a 64-year-old man who presented to the ED on Monday12/13/2019 with increased swelling and pain in his left hand. Patient is being treated by Dr. Uriarte on his left 2nd and 3rd digits for sometime now. Patient says he started having some dry gangrene with black dots on the tips of his finger. Patient did have an arteriovenous (AV) fistula formed for possible hemodialysis a few years ago with Dr. Vega. Since then, the patient has been experiencing worsening of gangrene in his hand. Patient states that Dr. Uriarte had been debriding it over some time and Dr. Andrew of vascular surgery had ligated the fistula as he was not using it. Patient is currently on peritoneal dialysis. The patient says over the past week, he has been experiencing some more swelling and pain in his left hand and went to Dr. Uriarte's office on 12/13/2019 where they expressed some purulent material and because of this, he was sent to the emergency room. In the emergency room, patient was found to have possible osteomyelitis and a consultation with orthopaedic surgery was called. Patient saw Dr. Owen who did an amputation of the 2nd and 3rd digit on the left hand secondary to osteomyelitis. Since then, patient has been feeling much better and is looking to go home later today. PAST MEDICAL HISTORY: End-stage renal disease on peritoneal dialysis. Vascular steel syndrome. Hypertension. Hyperlipidemia. Type 2 diabetes mellitus. Glaucoma. PAST SURGICAL HISTORY: Left upper extremity AV fistula placement with ligation of the left upper extremity fistula present. Abdominal peritoneal dialysis catheter insertion. 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 SOCIAL HISTORY: Patient denies any history of tobacco use. Denies alcohol or drug use. Patient lives at home with his in [place]. 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 FAMILY HISTORY: Patient has significant family history for diabetes in both mom and dad. His father did pass away of lung cancer. CURRENT INPATIENT MEDICATIONS: - Levemir 20 units twice a day - sliding scale insulin - hydralazine 25 mg - atropine eye drops - Colace - losartan - Aranesp - Plavix - aspirin - Bacid - Azopt eye drops - Cardizem - prednisolone eye drops - rosuvastatin - Alphagan eye drops - meropenem 500 mg every 24 hours - latanoprost eye drops - Timolol eye drops - Sensipar - Velphoro - Tylenol REVIEW OF SYSTEMS: GENERAL: Patient denies any fevers, chills or night sweats. HEENT: Patient denies headache, acute worsening of vision, earache or sore throat. CARDIOVASCULAR: Patient denies any chest pain or palpitations. RESPIRATORY: Patient denies any shortness of breath. ABDOMEN: Patient denies any nausea, vomiting or diarrhea. GENITOURINARY: Patient denies making any urine. EXTREMITIES: Patient denies any pain in his left lower extremity where his wounds are. NEUROLOGICAL: Patient endorses paresthesias, diabetic nephropathy. SKIN: Patient denies any rashes but does have the wounds present on his left lower extremity. PHYSICAL EXAMINATION: VITALS: Temperature 98.2 orally, pulse 73, respiratory rate 18, blood pressure 154/65, pulse oximetry 98% on room air. GENERAL: Patient is an alert and oriented male patient who was sitting on the side of the bed when I walked into the room. Patient did not appear to be in any acute distress. HEENT: Normocephalic, atraumatic with anicteric sclera. Patient had most mucous membranes. NECK: Supple with no lymphadenopathy and no jugular venous distention present. HEART: Irregular rate and rhythm with no murmurs ausculted. RESPIRATORY: Clear to auscultation bilaterally. ABDOMEN: Showed peritoneal dialysis catheter in place with site dry and nonerythematous. Patient's abdomen was soft and nontender. EXTREMITIES: Patient had a wound with a black eschar on the plantar surface of the left heel. Patient also had an area of black eschar on the tip of the great toe on the left foot. Patient does have a below knee amputation on the right lower extremity. Patient's left hand shows recent amputation of the 2nd and 3rd digits with the 3rd digit showing a small stump with sutures in place with wound healing well. There is some erythema surrounding the suture site with some mild warmth coming from the area. Patient has very weak pulses including nonpalpable dorsalis pedis and posterior tibial pulse in the left lower extremity. NEUROLOGICAL: Patient denies feeling any sensation to light touch below the knee on the left lower extremity. LABORATORY STUDIES: CBC from today shows white blood cells 15.2, hemoglobin 9.2, hematocrit 29.0, platelet count 366. ESR 127. Sodium 138, potassium 3.5, chloride 98, carbon dioxide 27, BUN 74, creatinine 10.2, glucose 74, calcium 8.9. Microbiology: The culture from the left index finger grew Enterococcus faecalis. The culture from the left middle finger grew Enterococcus faecalis and Citrobacter Braakii. The culture from the left index finger is also growing anaerobic bacteria which has yet to be identified which should be available in the next 2-3 days. IMAGING: Patient had an x-ray of the left hand performed on 12/13/2019 which was reported to show no acute bony erosive changes, status post amputation of the index finger at the level of the middle phalanx, vascular calcification and soft tissue swelling. The patient had a left lower extremity duplex Doppler arterial ultrasound performed today 12/16/2019 which was reported to show significant calcific plaque in the arterial structures of the left lower extremity limits the color Doppler imaging. Flow is detected in the anterior tibial artery only with pulse wave evaluation. Visualized arterial structures demonstrate no evidence of significant stenosis. Triphasic and biphasic waveforms are seen diffusely. There is monophasic waveform identified in the proximal and distal anterior tibial artery. ASSESSMENT/PLAN: Patient is a 64-year-old male who presented with worsening pain and swelling in the left upper extremity in the 2nd and 3rd digits, who is status post amputation. Patient was diagnosed with acute osteomyelitis of 2/3 fingers and left hand cellulitis. 1. Osteomyelitis: For infection has been amputated by Dr. Owen and the incision appears to be healing well on physical exam. Cultures grew back Enterococcus faecalis and Citrobacter Braakii as well as a an anaerobic which has yet to be identified. Because of this, the patient can be transitioned to levaquin 250 mg every 48 hours and metronidazole 500 mg every 8 hours for 10 days total duration of treatment. 2. Cellulitis of the 2nd and 3rd digits around the wound: Patient will continue with the antibiotics as above. The patient can followup with infectious disease upon discharge. PLAN: Patient is to treat the patient as described above. Patient is ready for discharge at this time and can be discharged by the primary hospitalist team with the antibiotic regimen as above. Patient will followup with orthopaedic surgery, vascular surgery, infectious disease and wound care after discharge. ALEXEI
== END 2019-12-16 17:15 | disposition home health service (06) | DRG 255 ==
LOC: M ED 11:13 → M ED INP 14:43 → ENRESERVTM 15:05 → ENRESERVDT 15:05 → M MSPAV 16:03
PROVIDERS: ADMIT Internal Medicine; ATTEND Internal Medicine
PROC: 0X6R0Z0 Detachment at Left Middle Finger, Complete, Open Approach (ICD-10-PCS; 2019-12-13)
PROC: 0X6P0Z0 Detachment at Left Index Finger, Complete, Open Approach (ICD-10-PCS; principal; 2019-12-13 16:00)
DX: E11.52 Type 2 diabetes mellitus with diabetic peripheral angiopathy with gangrene (principal); N18.6 End stage renal disease; M86.142 Other acute osteomyelitis, left hand; I12.0 Hypertensive chronic kidney disease with stage 5 chronic kidney disease or end stage renal disease; E11.69 Type 2 diabetes mellitus with other specified complication; M90.8 Osteopathy in diseases classified elsewhere; Z79.82 Long term (current) use of aspirin; Z79.899 Other long term (current) drug therapy; Z79.4 Long term (current) use of insulin; Z88.8 Allergy status to other drugs, medicaments and biological substances; Z87.891 Personal history of nicotine dependence; H40.9 Unspecified glaucoma; Z89.511 Acquired absence of right leg below knee; D63.1 Anemia in chronic kidney disease; B96.89 Other specified bacterial agents as the cause of diseases classified elsewhere; D72.829 Elevated white blood cell count, unspecified; Z99.2 Dependence on renal dialysis; E78.5 Hyperlipidemia, unspecified

== ENCOUNTER → 2019-12-25 | Outpatient (CLI) | payer MEDICARE ==
[~2019-12-25] MED LIST changes: +CEPH500C PO; +CINA30TA4 PO; +CLAR10CA3 PO; +CVS1CAP2 PO; +DILT1TAB12 PO; +DOCU-129 PO; +DOXY100C PO; +FLAG500T PO; +ISOVUE-300 61% 50ML VIAL As Ordered ONE; +LEVA750T7 PO; +LIDOCAINE 1% MDV 20ML VIAL As Ordered ONE; +LOSA50TA88 PO; +MIDAZOLAM INJ 2MG/2ML VIAL (J2250 PER 1MG) As Ordered ONE; +fentaNYL 100 MCG/2 ML INJECTION (J3010) As Ordered ONE
--- NOTE | 2019-12-25 11:33 | ROOPDOC ---
[facility] Report Of Operation Report of Operation DATE OF PROCEDURE: 12/25/19 PREPROCEDURE DIAGNOSES: Atherosclerosis of the [place] arteries and nonhealing wound of the left heel POSTPROCEDURE DIAGNOSES: Same PROCEDURE: 1. Ultrasound-guided access right common femoral artery 2. Selection of left common femoral artery and superficial femoral artery and lower extremity arteriogram 3. Selection of left popliteal artery with runoff of the tibial vessels 4. Selection of the distal left posterior tibial artery and arteriogram 5. Cross chronic total occlusion of the left mid and distal posterior tibial artery 6. Angioplasty of the left posterior tibial artery with 2 x 220 Lionel balloon and 2 x 220 coyote balloon 7. Angioplasty left peroneal artery with 2 x 220 coyote balloon 8. Angioplasty of the left distal anterior tibial artery and dorsal pedis artery with 2 x 220 coyote balloon 9. Angioplasty of the proximal mid and distal anterior tibial artery was 2.5 x 220 Lionel balloon 10. Completion arteriograms 11. Mynx closure right common femoral artery SURGEON: Zacarias Andrew MD ANESTHESIA: Local anesthesia 6 mL lidocaine. Moderate intravenous conscious sedation was administered by Dr. Andrew. The patient was independently monitored by registered nurse signed at the Department of radiology using automated blood pressure, EKG, and pulse oximetry. The details sedation record was permanently stored in the hospital information system. The following is the presedation [place]: Start time 09:47, stop time time: 53, Versed 0.5 mg IV, fentanyl 25 g IV, heparin 5000 units IV. CONTRAST: 44 mL Isovue-300 INDICATION FOR PROCEDURE: This is a very pleasant 64-year-old gentleman with severe bilateral upper and lower extremity distal peripheral vascular disease. He is status post right below-knee amputation for wet gangrene following a transmetatarsal amputation of the foot with Dr. Chowdary, and is status post a left index and middle finger amputation with Dr Owen for progressive wounds and gangrene of those digits after banding and then subsequent ligation of his AV fistula. While he was in the hospital recovering from his right below-knee amputation, he developed a pressure ulcer of the left heel. At that time, he underwent arteriogram and we were able to open up in-line flow to the plantar vessels with three-vessel tibial runoff. The disease was severe, calcified, and difficult to angioplasty, and I suspected that it would not stay open for long. The patient's wound has remained stable, but has not healed despite offloading and follow up with the wound care center. We obtained a repeat arterial duplex of the left lower extremity and there was no flow in the distal posterior tibial artery, which is the angiosome of the heel. I discussed the risks benefits and alternatives to repeat arteriogram with the patient. There is no guarantee we will be able to open up flow through the posterior tibial artery to the foot on repeat intervention, but it is certainly worthwhile to try. We do not want the patient to have his wound grade and require amputation. He has already lost his right leg and 2 fingers on his left hand, and we want to preserve as much limb function as possible. However, it is a common quite frustrating to the patient that he cannot progress to a prosthetic because he is nonweightbearing on his left heel. This has been a source of frustration for him and is negatively impacting his quality of life significantly. Would like to do anything we can to try to improve flow and help him with limb preservation and to move forward with his wound healing so he can progress to a prosthetic on the right lower extremity. Risks benefits and alternatives to and arteriogram and potential intervention were explained to the patient and he was agreeable to proceed. Informed consent was obtained. INTERPRETATION: 1. The left common femoral artery profunda and SFA are all widely patent, but are heavily calcified. No stenoses are noted. The popliteal arteries also widely patent, but heavily calcified. His entire arterial tree is heavily calcified. 2. Below the knee, the main runoff to the foot is the anterior tibial artery with good flow through the dorsal pedis artery to the distal toes. There are several 50-80% stenoses focally within the anterior tibial artery in the mid and distal portions, and over the dorsum of the foot dorsal pedis artery. The peroneal artery is ectatic and has some 30-40% stenoses throughout but is otherwise patent to the ankle. The posterior tibial artery occludes a few centimeters from its origin and does not reconstitute. No collateral flow was noted filling the distal posterior tibial artery at the foot. 3. After crossing the chronic total occlusion of the posterior tibial artery, we were able to cross through to the ankle and just past the medial malleolus, but were not able to get distal into the plantar vessels. Unfortunately, without outflow into the distal foot, what we were able to open with angioplasty will likely not stay open. After angioplasty, there is widely patent inflow through the posterior tibial artery itself, but no outflow was noted. 4. After angioplasty of the peroneal artery and the anterior tibial artery, there was rapid widely patent flow through both vessels to the ankle and then excellent flow through the dorsal pedis artery to the distal foot. 5. No extravasation embolization or dissections were noted in the tibial vessels after angioplasty. REPORT OF OPERATION: Patient was brought to the angiographic suite in stable condition. His bilateral groins were prepped and draped in a sterile fashion. A timeout was performed. Local anesthesia was administered to the skin and subcutaneous tissue over the right common femoral artery. A microneedle was used to access the right common femoral artery under ultrasound guidance. A wire was passed through this access and the needle was removed. A 4 [place] glide sheath was placed and flushed with saline. Sedation was administered without complication. Through this access, a Glidewire and I'll be flushed catheter were advanced into the aorta. We then went up and over the bifurcation with the Glidewire and the Omni flushed catheter we selected the left common femoral and SFA. A left lower extremity arteriogram was performed. We then advanced the wire into the popliteal artery under fluoroscopic guidance. A 90 cm 6 [place] sheath was exchanged for a 4 [place] sheath over the wire using a Seldinger technique and flushed with saline. With the selection of the left popliteal artery with by the sheath, we performed a left tibial runoff. Please see interpretation for arteriograms above. 5000 units of heparin was given through the sheath. We exchange the wire for an O18 Glidewire advantage and selected the posterior tibial artery. Carefully we navigated the wire through the chronic occlusion in the posterior tibial artery. We then advanced a 2 x 220 Lionel balloon over the wire. We were able to get both the wire and the balloon down to the distal posterior tibial artery at the ankle. Three-minute inflations of the balloon were performed along the length of the vessel. There was good flow but no outflow. We then tried to navigate the wire across into the plantar vessels, but this proved extremely difficult. We exchange the wire for an O14 Glidewire advantage and utilize this and an O14 [place] to try to cross into the foot. We spent about 20 minutes trying to get through the calcified occlusions in the distal posterior tibial artery at the ankle and the foot, but were unsuccessful. We did get a little further than we had initially, and we angioplasty with a 2 x 220 coyote balloon over the O14 wire were three-minute inflations. Following this, there was widely patent flow through the posterior tibial artery in the calf, but we just did not have any outflow at the foot. This will likely not stay open. We tried one more time to cross with the wire and the [place], but this was eventually aborted. Contrast injections at the posterior tibial artery distally did not reveal any outflow distal to where we had crossed, and did not reveal any extravasation either. We then navigated the wire into the peroneal artery and advanced distally and angioplastied with a 2 x 220 coyote balloon along the length of the peroneal artery for three-minute inflations. We then navigated the wire into the anterior tibial artery and the dorsal pedis artery. Once we had a distal in the dorsal pedis artery, we advanced the coyote balloon over the wire to the dorsal pedis artery and across the ankle. The 2 x 2 120 coyote balloon was inflated for three-minute inflations in the dorsal pedis artery and across the ankle and the distal anterior tibial artery. We then removed the balloon and exchanged for a 2.5 x 220 Lionel balloon and angioplastied from the ankle to the proximal anterior tibial artery and sequential three-minute inflations. Following this tibial arteriogram showed rapid flow through the anterior tibial artery and peroneal artery to the ankle with good flow in the foot through the dorsal pedis artery. No flow limiting stenosis were remaining. There were no dissections embolizations are extravasation noted. There was still flow through the posterior tibial artery, but it was getting hung up just above the ankle due to limited outflow. The foot was warm and pink. We exchange the sheath over Glidewire for a short 6 [place] sheath and flushed the sheath with saline. A Mynx closure device was deployed in the right groin with good hemostasis. Pressure was held for 10 minutes and sterile dressings were applied. The patient was taken to recovery in stable condition. He tolerated the sedation and the procedure well. ESTIMATED BLOOD LOSS: Approximately 5 mL. COMPLICATIONS: None. PLAN: It is okay to resume home medications and diet. We'll see the patient back in a week to check his groin access site. Continue local wound care to the left heel per instructions from the wound care center. Continue to offload the left heel and avoid any pressure. Keep blood glucose well controlled to help with wound healing. High-protein diet is recommended to help with wound healing. We appreciate the opportunity to participate in the care of this patient. ZACARIAS ANDREW MD December 25, 2019 11:33
[2019-12-25 15:00] VITALS: BP 196/94
== END ==
LOC: M IRPRO 08:29
PROVIDERS: ATTEND Surgery Vascular Surgery
DX: I70.244 Atherosclerosis of native arteries of left leg with ulceration of heel and midfoot (principal); L97.409 Non-pressure chronic ulcer of unspecified heel and midfoot with unspecified severity; I70.92 Chronic total occlusion of artery of the extremities

== ENCOUNTER → 2020-01-21 | Outpatient (CLI) | payer MEDICARE ==
[~2020-01-21] MED LIST changes: -ISOVUE-300 61% 50ML VIAL As Ordered ONE; +ISOVUE-370 76% 100ML VIAL As Ordered ONE; -LIDOCAINE 1% MDV 20ML VIAL As Ordered ONE; -MIDAZOLAM INJ 2MG/2ML VIAL (J2250 PER 1MG) As Ordered ONE; -fentaNYL 100 MCG/2 ML INJECTION (J3010) As Ordered ONE
[2020-01-21 10:50] LABS: CREATININE FOR GFR 10.1 MG/DL (0.70-1.30); GLOMERULAR FILTRATION RATE 5.5 (>49)
--- NOTE | 2020-01-21 14:09 | REP ---
extracranial CT angiogram: 01/21/2020 INDICATION: Atherosclerotic disease. Carotid stenosis. TECHNIQUE: Axial images of the extracranial carotid and vertebral arteries were performed with sagittal, coronal and 3D reconstructions provided. COMPARISON: None. FINDINGS: There is minimal atherosclerotic plaque involving the proximal ICA on the right. There is no hemodynamically significant stenosis by NASCET criteria of the ICAs on this study. The left vertebral artery is significant diminutive with atherosclerotic plaque at the origin. This does appear to be occluded at the distal V3 segment. There is intracranial atherosclerosis involving the dominant right V4 segments. There is atherosclerosis involving the visualized cavernous ICAs bilaterally without high-grade stenosis detected. The great vessels originate in expected anatomic fashion from the aortic arch. The visualized lungs are essentially clear. IMPRESSION: No hemodynamically significant extracranial ICA stenosis by NASCET criteria. Diffuse diminutive left vertebral artery as described likely secondary to origin stenosis, however, congenitally diminutive vessel is additionally considered. Electronically Signed by Shailesh Kim DO 01/21/2020 03:14 P
--- NOTE | 2020-01-21 15:42 | REP ---
CT ANGIOGRAM RIGHT UPPER EXTREMITY: CT angiogram performed following the intravenous administration of 100 mL Isovue 370. Sagittal, coronal and 3D MIP reconstruction images are performed. The right subclavian artery is widely patent with no stenosis or significant narrowing. The right axillary artery and brachial artery demonstrate minimal diffuse plaquing but no significant stenosis. Radial and ulnar arteries demonstrate mild diffuse plaquing and narrowing. In the distal third of the forearm, there appears to be moderate focal stenosis of the radial artery. Two additional foci of apparent moderate stenosis are seen at the level of the distal radius. There is high-grade stenosis of the ulnar artery at approximately third of the forearm focally. There is occlusion of the ulnar artery in the mid forearm with several segments of partial reconstitution and flow throughout the remaining forearm and wrist. A small amount of flow is provided to the deep palmar arch. The vast majority of flow is provided is provided by the radial artery. IMPRESSION: No proximal stenosis or occlusion. There is what appears to be two or three focal areas of moderate stenosis of the radial artery, one focus in the proximal forearm and two other foci distally in the region of the distal end of the radius. There is occlusion of the ulnar artery in the midforearm with areas of partial reconstitution in the distal half of the forearm and minimal flow into the deep palmar arch from the ulnar artery, the dominant supply originates from the radial artery. Electronically Signed by Herrera Easley MD 01/23/2020 12:48 A
--- NOTE | 2020-01-21 17:40 | REP ---
RIGHT UPPER EXTREMITY DUPLEX DOPPLER ARTERIAL ULTRASOUND: Real-time ultrasound evaluation and duplex Doppler interrogation of right upper extremity arterial system is performed. Mild scattered plaquing is seen diffusely. Normal flow velocities are seen in the right common carotid artery (97.2 cm/s), vertebral artery (42.9 cm/s), subclavian artery (69.3 cm/s), axillary (71.1 cm/s), brachial (71.1 cm/s), radial (48.6 cm/s), and proximal ulnar (49.8 cm/s) arteries. Greater degree of calcific plaque is seen throughout the radial and ulnar arteries. There is apparent stenosis and slow flow in the mid ulnar artery, peak systolic velocity 9.9 cm/s. Distal ulnar artery appears to be occluded. Electronically Signed by Herrera Easley MD 01/23/2020 09:53 A
== END ==
LOC: M RAD 09:18
PROVIDERS: ATTEND Physician Assistant
DX: I73.9 Peripheral vascular disease, unspecified (principal)
CPT/HCPCS: 36415; 70498; 73206; 82565; 84520; 93931; Q9967

== ENCOUNTER → 2020-01-31 | Outpatient (REF) | payer MEDICARE ==
[~2020-01-31] MED LIST changes: -ASPI81TA85 PO; +ASPI81TA86 PO; +D31000TA2 PO; +D3400CAP PO; -ISOVUE-370 76% 100ML VIAL As Ordered ONE; +KLOR10TA76 PO; +PEG1POW PO; +PERCOCET PO; +SENN18TA PO; +TIMO0.5S29 OU; -VITAD1000T PO
== END ==
LOC: M LAB REF 17:40 → MERGE 17:40
PROVIDERS: ATTEND Surgery
DX: L97.521 Non-pressure chronic ulcer of other part of left foot limited to breakdown of skin (principal)

== ENCOUNTER → 2020-03-02 | Outpatient (CLI) | payer MEDICARE ==
--- NOTE | 2020-03-02 14:49 | REP ---
Clinical: Symptoms related to atherosclerotic disease and intermittent claudication. Status post left lower extremity angioplasty. Technique: Real time easley scale and color Doppler evaluation of the bilateral lower extremity arterial vasculature using linear high frequency transducer. Findings: Right [id number] amputation noted. Easley scale and color images demonstrate extensive calcified atheromatous plaquing with evidence for significant stenosis of the left popliteal artery and only minimal subsequent flow through the left anterior tibial artery. Peak systolic velocities (cm/sec) RIGHT LEFT Common femoral artery 90 86 Profunda femoris 65 77 SFA (proximal) 87 100 SFA (mid) 74 74 SFA (distal) 72 44 Popliteal artery 70 185 [place] (prox.) -- 38 (monophasic) Tibioperoneal trunk -- no flow VICE PRESIDENT OF COMMUNICATIONS (prox.) -- no flow VICE PRESIDENT OF COMMUNICATIONS (distal) -- 6 [place] (distal) -- 147 Impression: Extensive calcified atheromatous plaquing. Significant stenosis through the left popliteal artery with poor subsequent downstream outflow. Electronically Signed by Diego Lane MD 03/02/2020 02:41 P
== END ==
LOC: M RAD 12:47
PROVIDERS: ATTEND Physician Assistant
DX: I73.9 Peripheral vascular disease, unspecified (principal)

== ENCOUNTER → 2020-04-02 | Outpatient (CLI) | payer MEDICARE | LOC: M PT 12:31 | PROVIDERS: ATTEND Physician Assistant | DX: E11.52 Type 2 diabetes mellitus with diabetic peripheral angiopathy with gangrene (principal) ==

== ENCOUNTER 2020-04-06 13:57 | Inpatient (IN) | payer MEDICARE ==
[~2020-04-06] VITALS: Ht 179.1 cm; Wt 91.2 kg
[~2020-04-06 13:57] MED LIST changes: -D3400CAP PO; -KLOR10TA76 PO; -PEG1POW PO; -PERCOCET PO; -SENN18TA PO; -TIMO0.5S29 OU
[2020-04-06 14:07] VITALS: BP 142/72
--- NOTE | 2020-04-06 14:26 | CR.PDOC ---
General Date of Consultation: Apr 06, [address] Andrew. HISTORY OF PRESENT ILLNESS: Mr. Lawson is a 64-year-old gentleman with a complicated peripheral vascular history. He is status post right lower extremity amputation. He has had a chronic left heel non heeling wound, status post left l ower extremity arteriogram and intervention with improvement of tibial flow last completed as per Dr Andrew 03/23/20. This was not anticipated to remain patent long-term due to the heavy dense nature of the calcified tibial arterial disease. The pt has continued to follow with Wound mgmt, Dr Uriarte, for wound care LLE wound. Dr Uriarte called 3:50 PM 04/03/20 stating the Pt's "LLE deteriorating, previous amputation site ischemic to web space, heel necrotic and non salvageable", reporting that they were no longer debriding and are treating with betadine and foam dressing. Dr Uriarte felt amputation was necessary at this point. The pt was scheduled to discuss this further with Dr Andrew today. The pt was noted to have wet gangrene of the left foot and the pt is being admitted to the Hospitalist service this afternoon with plan for guillotine amputation of the LLE this evening and revision BKA vs AKA 04/09/20. ALLERGIES: Please see below. HOME MEDICATIONS: Please see below. PAST MEDICAL HISTORY: Severe peripheral vascular disease of the upper and lower extremities, hypertension, diabetes, hypercholesterolemia, end-stage renal disease on peritoneal dialysis, congestive heart failure, glaucoma PAST SURGICAL HISTORY: PermCath placement, right below-knee amputation, AV fistula creation and ligation, left and rt hand finger amputations, arteriograms bilateral lower extremities FAMILY HISTORY: Lung cancer, diabetes, cancer the brain SOCIAL HISTORY: Patient is and lives with his . He denies tobacco alcohol or illicit drug use. REVIEW OF SYSTEMS: As noted in HPI, the pt is following with Dr Goldy Montoya for necrotic fingers Left hand, otherwise ROS unremarkable. PHYSICAL EXAMINATION: VITAL SIGNS: Please see below. GENERAL APPEARANCE: generally ill appearing. HEENT: MMM. RESPIRATORY:CTA. CARDIOVASCULAR: RRR. ABDOMEN: soft NT. EXTREMITIES: wet gangrene Left foot. NEUROLOGICAL: no focal deficits. A/O x 3. LABORATORY DATA: Admission labs pending. COVID screen pending. ASSESSMENT/PLAN: Severe PAD, chronic non healing wound LLE, wet gangrene LLE. Pt is reviewed and examined as per Dr Andrew. The plan [place] [facility] [place]. Plan for guillotine amputation this evening as per Dr Andrew. Then plan for revision BKA vs AKA 03/21/27. Informed consent is obtained and placed with chart. Transfusion consent is obtained and placed with chart. NPO HOLD Plavix. Continue ASA/Statin. COVID screen pending. Admission labs, Type and screen pending. Vital Signs/I&O admission VS pending Laboratory Data Labs 24H admission labs pending Allergies Coded Allergies: acetazolamide (Verified Adverse Reaction, Severe, CONVULSIONS, 11/19/19) Home Medications Scheduled Aspirin (Aspir 81) 81 Mg Tablet.dr, 81 MG PO DAILY, (Reported) Atropine Sulfate (Atropine Sulfate) 1% 2ML Drops, 1 DROP OS QAM, (Reported) Bimatoprost (Lumigan) 50 Drop/2.5 Ml Karla, 1 DROP OU QHS, (Reported) Brimonidine Tartrate/Timolol (Combigan 0.2%-0.5% Eye Drops) 5 Ml Drops, 1 DROP OU BID, (Reported) Brinzolamide (Azopt) 1% 10ML Drops.susp, 1 DROP OS BID, (Reported) Cholecalciferol (Vitamin D3) (Vitamin D3) 10 Mcg Capsule, 400 UNITS PO DAILY, (Reported) Clopidogrel Bisulfate (Clopidogrel) 75 Mg Tablet, 75 MG PO DAILY, (Reported) Diltiazem HCl (Diltiazem HCl) 60 Mg Tablet, 60 MG PO DAILY, (Reported) Insulin Glargine (Lantus) 100 Unit/1 Ml Vial, 65 UNITS SC QAM, (Reported) Insulin Glargine (Lantus) 100 Unit/1 Ml Vial, 45 UNITS SC QPM, (Reported) Insulin Human Lispro (Humalog) 1 Units/0.01 Ml Inj, 1 DOSE SC AC, (Reported) PER SLIDING SCALE Rosuvastatin Calcium (Rosuvastatin Calcium) 20 Mg Tablet, 20 MG PO QHS, (Reported) Sucroferric Oxyhydroxide (Velphoro) 500 Mg Tab.chew, 500 MG PO BIDWM, (Reported) Scheduled PRN Docusate Sodium (Stool Softener) 100 Mg Capsule, 100 MG PO DAILY PRN for CONSTIPATION, (Reported) Lactobacillus Combo No.10 (Probiotic) 1 Each Capsule, 1 CAP PO DAILY PRN for DIARRHEA, (Reported) ONLY TAKES WHEN ON ANTIBIOTICS Loratadine (Claritin) 10 Mg Capsule, 10 MG PO DAILY PRN for ALLERGIES, (Reported) Dulce Espinal Apr 06, 2020 14:26
[2020-04-06] MEDS ORDERED: D3400CAP PO (15:16)
[2020-04-06] MEDS ORDERED: ceFAZolin SOD 2 GM in IV 1 EA IV SCH (17:00)
[2020-04-06 17:02] LABS: HEMATOCRIT 32.6 % (42.0-52.0); HEMOGLOBIN 10.3 g/dl (13.5-17.5); MEAN CORPUSCULAR HEMOGLOBIN 32.2 pg (27.0-33.0); MEAN CORPUSCULAR HGB CONC 31.6 g/dl (32.0-36.5); MEAN CORPUSCULAR VOLUME 101.9 fl (80.0-96.0); PLATELET COUNT, AUTOMATED 368 10^3/uL (150-450); WHITE BLOOD COUNT 29.9 10^3/uL (4.0-10.0)
[2020-04-06] MEDS ORDERED: LIDOCAINE W/EPINEPHRINE 1% 20ML VIAL As Ordered ONE (17:36)
[2020-04-06 17:41] LABS: ALBUMIN 1.9 GM/DL (3.2-5.2); BILIRUBIN,TOTAL 0.7 MG/DL (0.2-1.0); CALCIUM LEVEL 9.1 MG/DL (8.8-10.2); POTASSIUM SERUM 3.8 MEQ/L (3.5-5.1); TOTAL PROTEIN 6.5 GM/DL (6.4-8.2)
[2020-04-06 17:42] LABS: CREATININE FOR GFR 10.8 MG/DL (0.70-1.30); GLOMERULAR FILTRATION RATE 5.1 (>49)
[2020-04-06] MEDS ORDERED: CEFEPIME HCL 2 GM in D5W MINI-BAG PLUS 50 ML IV SCH (18:00)
--- NOTE | 2020-04-06 18:41 | IPNPDOC ---
Date Seen The patient was seen on 04/06/20. Progress Note Pt seen and examined. To OR today for guillotine amputation. Consent obtained in clinic today. VS, I&O, 24H, Fishbone Vital Signs/I&O Vital Signs Date Time Temp Pulse Resp B/P (MAP) Pulse Ox O2 Delivery O2 Flow Rate FiO2 04/06/20 14:07 100.7 60 18 142/72 (95) 94 Room Air Laboratory Data 24H LABS Laboratory Tests 2 04/06/20 14:18: Coronavirus (COVID-19)(PCR) NEGATIVE 04/06/20 16:38: Nucleated Red Blood Cells % (auto) 0.0, Anion Gap 9, Glomerular Filtration Rate 5.1L, Calcium Level 9.1, Total Bilirubin 0.7, Aspartate Amino Transf (AST/SGOT) 60H, Alanine Aminotransferase (ALT/SGPT) 87H, Alkaline Phosphatase 602H, Total Protein 6.5, Albumin 1.9L, Albumin/Globulin Ratio 0.4 CBC/BMP Laboratory Tests 04/06/20 16:38 ZACARIAS PATRICK MD Apr 06, 2020 18:41
[2020-04-06] MEDS ORDERED: BUPIVACAINE/EPIN 0.5% 30 ML VIAL As Ordered ONE (18:52)
[2020-04-06] MEDS ORDERED: ceFAZolin 2 GM/D5W 50 ML IV BAG (J0690 PER 500MG) As Ordered ONE (19:13)
[2020-04-06] MEDS ORDERED: VANCOMYCIN 1000MG/20ML VIAL As Ordered ONE (19:14)
[2020-04-06] MEDS ORDERED: propofoL 200 MG/20 ML VIAL As Ordered ONE (19:34)
[2020-04-06] MEDS ORDERED: ONDANSETRON 4MG/2ML VIAL As Ordered ONE (19:34)
[2020-04-06] MEDS ORDERED: fentaNYL 100 MCG/2 ML INJECTION (J3010) As Ordered ONE (19:34)
[2020-04-06] MEDS ORDERED: MIDAZOLAM INJ 2MG/2ML VIAL (J2250 PER 1MG) As Ordered ONE (19:34)
--- NOTE | 2020-04-06 19:56 | ROOPDOC ---
[facility] Report Of Operation Report of Operation DATE OF PROCEDURE: 04/06/20 PREPROCEDURE DIAGNOSES: Atherosclerosis of the samish arteries with rapidly progressing wet gangrene of the left foot POSTPROCEDURE DIAGNOSES: Same PROCEDURE: Left guillotine amputation SURGEON: Zacarias Andrew MD ANESTHESIA: MAC and local INDICATION FOR PROCEDURE: This is a very pleasant 64yo patient with ESRD on PD, DM with severe endstage peripheral vascular disease and h/o R BKA, multiple fi nger amputations, and now wet gangrene of the left foot. Risks benefits and alternatives to a guillotine amputation of the left foot at the ankle to remove source of infection was described to the patient and his , informed consent obtained. We discussed that this was a temporizing measure to hopefully allow the calf tissue to recover enough to allow for a planned completion L BKA, although we still may need to do a L AKA if tissue is not viable. They are agreeable. Will proceed urgently to the OR. REPORT OF OPERATION: The patient was brought to the OR in stable condition and placed supine on the OR table. MAC and antibiotics were administered without complication. A time out was performed. Local anesthesia was administered generously and circumferentially at the distal ankle. A skin knife was used for a circumferential incision. Bovie cautery was used to divide the tissues down to the bone circumferentially. A bone saw was used to transect the tibia. the foot was sent for pathology. Sutures were used for ligation of vessels. Bovie cautery was used for general hemostasis. Local anesthesia was again administered to the tissues. Saline irrigation was performed. Surgicel and gentle pressure provided additional hemostasis. Xeroform, fluffs, ABD pad, kerlex, and acewrap were placed as a final dressing. The patient was taken to recovery in stable condition. He tolerated the procedure well. ESTIMATED BLOOD LOSS: Approximately 50 mL. COMPLICATIONS: NONE. SPECIMENS: Left foot sent for pathology. PLAN: We will likely return to OR for planned completion BKA vs AKA after infection subsides and swelling diminishes. Continue broad spectrum IV antibiotics. Possibly to IR tomorrow for picc due to difficult IV access. We appreciate the opportunity to participate in the care of this patient. ZACARIAS ANDREW MD Apr 06, 2020 19:56
[2020-04-06] MEDS ORDERED: D5W/0.45% SODIUM CHLORIDE 1,000 ML IV SCH (20:00)
[2020-04-06] MEDS ORDERED: fentaNYL 100 MCG/2 ML INJECTION (J3010) IV PRN (20:00)
[2020-04-06] MEDS ORDERED: VANCOMYCIN HCL 1,000 MG, VIAL MATE ADAPTER 1 EACH in D5W 250 ML IV ONE (20:00)
[2020-04-06] MEDS ORDERED: ONDANSETRON 4MG/2ML VIAL IV PRN (20:00)
[2020-04-06] MEDS ORDERED: PERCOCET 5MG/325MG TAB PO PRN ×2 (20:15)
[2020-04-06] MEDS ORDERED: diazePAM 5 MG TAB PO PRN (20:15)
[2020-04-06] MEDS: HEPARIN SOD (PORCINE) 5000UNITS/ML 1ML VIAL/SYRINGE SC SCH (20:51)
[2020-04-06] MEDS: CEFEPIME HCL 1 GM in D5W MINI-BAG PLUS 50 ML IV SCH (20:51)
[2020-04-06] MEDS: SUCROFERRIC OXYHYDROXIDE 500MG CHEW TAB (VELPHORO) PO SCH (20:59)
[2020-04-06 21:00] VITALS: BP 127/57
[2020-04-06] MEDS: LEVEMIR (INSULIN DETEMIR) 1 UNITS/0.01ML SC SCH (21:00)
[2020-04-06] MEDS: HumaLOG INSULIN (NovoLOG) PER UNIT SC SCH (21:00)
[2020-04-06 21:30] VITALS: BP 127/57
--- NOTE | 2020-04-06 21:55 | HPEPDOC ---
General Date of Admission Apr 06, 2020 at 14:10 Date of Service: Apr 06, 2020 Chief Complaint The patient is a 64-year-old male admitted with a reason for visit of Gangrene Left Lower Extremity. Source: Patient, Family Exam Limitations: No limitations Timing/Duration: Getting worse Severity: Severe Associated Symptoms: Denies Symptoms History of Present Illness 64 y.o M with PMH of DM-II and ESRD on peritoneal dialysis with previous history right BKA presented for surgical managmenbt of left lower extremity infection likely BKA. patient presented to Dr. Andrew earlier today and after subsequent discussions, he was directed to inpatient admission for likely BKA following debridement Home Medications Scheduled Aspirin (Aspir 81) 81 Mg Tablet.dr, 81 MG PO DAILY, (Reported) Atropine Sulfate (Atropine Sulfate) 1% 2ML Drops, 1 DROP OS QAM, (Reported) Bimatoprost (Lumigan) 50 Drop/2.5 Ml Karla, 1 DROP OU QHS, (Reported) Brimonidine Tartrate/Timolol (Combigan 0.2%-0.5% Eye Drops) 5 Ml Drops, 1 DROP OU BID, (Reported) Brinzolamide (Azopt) 1% 10ML Drops.susp, 1 DROP OS BID, (Reported) Cholecalciferol (Vitamin D3) (Vitamin D3) 10 Mcg Capsule, 400 UNITS PO DAILY, (Reported) Clopidogrel Bisulfate (Clopidogrel) 75 Mg Tablet, 75 MG PO DAILY, (Reported) Diltiazem HCl (Diltiazem HCl) 60 Mg Tablet, 60 MG PO DAILY, (Reported) Insulin Glargine (Lantus) 100 Unit/1 Ml Vial, 65 UNITS SC QAM, (Reported) Insulin Glargine (Lantus) 100 Unit/1 Ml Vial, 45 UNITS SC QPM, (Reported) Insulin Human Lispro (Humalog) 1 Units/0.01 Ml Inj, 1 DOSE SC AC, (Reported) PER SLIDING SCALE Rosuvastatin Calcium (Rosuvastatin Calcium) 20 Mg Tablet, 20 MG PO QHS, (Reported) Sucroferric Oxyhydroxide (Velphoro) 500 Mg Tab.chew, 500 MG PO BIDWM, (Reported) Scheduled PRN Docusate Sodium (Stool Softener) 100 Mg Capsule, 100 MG PO DAILY PRN for CONSTIPATION, (Reported) Lactobacillus Combo No.10 (Probiotic) 1 Each Capsule, 1 CAP PO DAILY PRN for DIARRHEA, (Reported) ONLY TAKES WHEN ON ANTIBIOTICS Loratadine (Claritin) 10 Mg Capsule, 10 MG PO DAILY PRN for ALLERGIES, (Reported) Allergies Coded Allergies: acetazolamide (Verified Adverse Reaction, Severe, CONVULSIONS, 11/19/19) Past Medical History Medical History per hpi Surgical History S/P LEFT bka Family History Significant Family History: Noncontributory Social History * Smoker: Denies Alcohol: Denies Recent Travel/Sick Contacts: Denies: Recent travel, Recent sick contacts A-FIB/CHADSVASC A-FIB History Current/History of A-Fib/PAF?: No Current PO Anticoag Therapy: No Review of Systems Constitutional: Denies: Chills, Fever, Night Sweats Eyes: Denies: Pain, Vision change ENT: Denies: Head Aches, Ear Pain, Dysphagia Skin: Denies: Rash, Lesions, Breakdown Pulmonary: Denies: Dyspnea, Cough Cardiovascular: Denies: Chest Pain, Palpitations, Orthopnea, Paroxysmal Noc. Dyspnea, Lt Headedness Gastrointestinal: Denies: Nausea, Vomiting, Abdominal Pain, Diarrhea Genitourinary: Denies: Dysuria, Frequency, Incontinence, Retention Hematologic: Denies: Bruising, Bleeding Excessively Musculoskeletal: Denies: Neck Pain, Back Pain, Joint Pain, Muscle Pain, Spasms Neurological: Denies: Weakness, Numbness, Change in speech, Confusion Psych: Reports: Mood Normal; Denies: Depression, Memory Issues Physical Examination General Exam: Positive: Alert, No Acute Distress Eye Exam: Positive: PERRLA, Conjunctiva & lids normal, EOMI; Negative: Sclera icteric ENT Exam: Positive: Atraumatic, Mucous membr. moist/pink, Pharynx Normal Neck Exam: Positive: Supple; Negative: JVD, thyromegaly Chest Exam: Positive: Clear to auscultation, Normal air movement Heart Exam: Positive: Rate Normal, Regular Rhythm, Normal S1, Normal S2; Negative: Murmurs, Rubs Telemetry: Positive: No significant arrhythmia Abdomen Exam: Positive: Normal bowel sounds, Soft; Negative: Tenderness, Hepatospenomegaly Extremity Exam: Positive: Other (RIGHT STUMP SITE CLEAN. LEFT LEG IN DRESSING) Skin Exam: Positive: Nl turgor and temperature; Negative: Breakdown, Lesion Neuro Exam: Positive: Normal Gait, Normal Speech, Cranial Nerves 3-12 NL, Reflexes 2+ Psych Exam: Positive: Mental status NL, Mood NL, Oriented x 3 Vital Signs Vital Signs Date Time Temp Pulse Resp B/P (MAP) Pulse Ox O2 Delivery O2 Flow Rate FiO2 04/06/20 20:15 97.5 83 16 154/62 (92) 98 Room Air Laboratory Data Labs 24H Laboratory Tests 2 04/06/20 14:18: Coronavirus (COVID-19)(PCR) NEGATIVE 04/06/20 16:38: Nucleated Red Blood Cells % (auto) 0.0, Anion Gap 9, Glomerular Filtration Rate 5.1L, Calcium Level 9.1, Total Bilirubin 0.7, Aspartate Amino Transf (AST/SGOT) 60H, Alanine Aminotransferase (ALT/SGPT) 87H, Alkaline Phosphatase 602H, Total Protein 6.5, Albumin 1.9L, Albumin/Globulin Ratio 0.4 CBC/BMP Laboratory Tests 04/06/20 16:38 Assessment/Plan 1. Left leg cellulitis -complicated by ischemia and diabetic hc -likely BKA on -Vanc and Zosyn pre-op for empiric MRSA and pseudomonal coverage 2. ESRD on peritoneal dialysis nephro consulted for dialysis - INSULIN for glycemic control 3. HLD -continue statin\ 4. pvd -HOLD PLAVIX PRE-OP vte:heparin [id number] code status: cpr ok but no intubation Plan / VTE VTE Prophylaxis Ordered?: Yes Plan Diet: Make NPO Therapy: PT, OT, Home Safety Eval, Wound Consult Pt and Family Services: Home Care Anticipated Discharge: Home With Services LAUREEN SOL DO Apr 06, 2020 21:55
[2020-04-06 22:00] VITALS: BP 127/58
[2020-04-06] MEDS ORDERED: DEXTROSE 50% 50 ML SYRINGE IV PRN (22:00)
[2020-04-06] MEDS ORDERED: GLUCAGON INJ 1MG VIAL SC PRN (22:00)
[2020-04-06] MEDS ORDERED: LORATADINE 10 MG TAB PO PRN (22:00)
[2020-04-06] MEDS ORDERED: GLUCOSE 4GM CHEW TABLET PO PRN (22:00)
[2020-04-06] MEDS ORDERED: DOCUSATE SODIUM 100 MG CAP PO PRN (22:00)
[2020-04-06 23:00] VITALS: BP 130/57
[2020-04-06] MEDS: ROSUVASTATIN 10 MG TAB (CRESTOR) PO SCH (23:32)
[2020-04-06] MEDS: BRINZOLAMIDE 1 % OPHTH SUSP (AZOPT) 10ML OS SCH (23:32)
[2020-04-07] VITALS (8 sets, daily range): BP systolic 130–170; BP diastolic 56–78
[2020-04-07] MEDS ORDERED: VANCOMYCIN INTERMITTENT/PULSE DOSING BY CLINICAL PHARMACIST PER DOSING PROTOCOL XX SCH (07:45)
[2020-04-07] MEDS ORDERED: SUCROFERRIC OXYHYDROXIDE 500MG CHEW TAB (VELPHORO) PO SCH (08:00)
[2020-04-07 09:07] LABS: CALCIUM LEVEL 8.5 MG/DL (8.8-10.2); CREATININE FOR GFR 10.4 MG/DL (0.70-1.30); GLOMERULAR FILTRATION RATE 5.4 (>49); POTASSIUM SERUM 3.8 MEQ/L (3.5-5.1); VANCOMYCIN RANDOM 12.6 UG/ML
[2020-04-07] MEDS: HEPARIN SOD (PORCINE) 5000UNITS/ML 1ML VIAL/SYRINGE SC SCH ×2 (09:58→21:52)
[2020-04-07] MEDS: LEVEMIR (INSULIN DETEMIR) 1 UNITS/0.01ML SC SCH (09:58)
[2020-04-07] MEDS: ASPIRIN 81 MG ENTERIC TAB PO SCH (09:59)
[2020-04-07] MEDS: BRINZOLAMIDE 1 % OPHTH SUSP (AZOPT) 10ML OS SCH ×2 (10:06→21:55)
[2020-04-07] MEDS: ATROPINE SULFATE 1% OP SOLN 2 ML BTL OS SCH (10:08)
[2020-04-07] MEDS: SUCROFERRIC OXYHYDROXIDE 500MG CHEW TAB (VELPHORO) PO SCH ×3 (10:22→17:23)
--- NOTE | 2020-04-07 12:07 | IPNPDOC ---
Date Seen The patient was seen on 04/07/20. Progress Note Patient seen and examined postoperative day one status post left guillotine amputation for wet gangrene of the foot. His swelling is remarkably improved. He has no complaints of pain. And he says he feels much better. On exam, the open edge of the stump is clean with no drainage or purulence noted. There is no erythema today, no streaking on the calf, and no odor. The stump was thoroughly irrigated with saline, covered with Xeroform, 4 x 4's with Betadine, kerlix and an Eladio wrap. The patient tolerated this without discomfort. We elevated his stump to help with the swelling, and he tolerated this well. Because he has such an improvement status post guillotine amputation, I feel we can likely proceed with his completion amputation tomorrow. I am hopeful we will be able to do a below-knee amputation, and our exam today is encouraging for that. I do not need to wait until for an amputation. We should continue broad-spectrum antibiotics for now. We appreciate the opportunity to participate in the care of this patient. VS, I&O, 24H, Fishbone Vital Signs/I&O Vital Signs Date Time Temp Pulse Resp B/P (MAP) Pulse Ox O2 Delivery O2 Flow Rate FiO2 04/07/20 10:04 83 170/78 04/07/20 10:00 98.4 16 94 Room Air I&O- Last 24 Hours up to 6 AM 04/07/20 06:00 Intake Total 2480 ml Output Total 1300 ml Balance 1180 ml Laboratory Data 24H LABS Laboratory Tests 2 04/06/20 14:18: Coronavirus (COVID-19)(PCR) NEGATIVE 04/06/20 16:38: Nucleated Red Blood Cells % (auto) 0.0, Anion Gap 9, Glomerular Filtration Rate 5.1L, Calcium Level 9.1, Total Bilirubin 0.7, Aspartate Amino Transf (AST/SGOT) 60H, Alanine Aminotransferase (ALT/SGPT) 87H, Alkaline Phosphatase 602H, Total Protein 6.5, Albumin 1.9L, Albumin/Globulin Ratio 0.4 04/07/20 07:35: Anion Gap 11, Glomerular Filtration Rate 5.4L, Calcium Level 8.5L, Random Vancomycin Level 12.6 CBC/BMP Laboratory Tests 04/06/20 16:38 04/07/20 07:35 ZACARIAS PATRICK MD Apr 07, 2020 12:07
[2020-04-07] MEDS: HumaLOG INSULIN (NovoLOG) PER UNIT SC SCH ×3 (12:38→21:00)
[2020-04-07] MEDS ORDERED: VANCOMYCIN HCL 1,000 MG, VIAL MATE ADAPTER 1 EACH in D5W 250 ML IV ONE (13:00)
[2020-04-07] MEDS ORDERED: HEPARIN SOD (PORCINE) 5000UNITS/ML 1ML VIAL/SYRINGE PD ONE (14:00)
--- NOTE | 2020-04-07 14:25 | IPNPDOC ---
Subjective Date Seen The patient was seen on 04/07/20. Subjective Chief Complaint/HPI pt is comfortable, no pain,offers no newcomplaints General: Reports: ROS Unobtainable Constitutional: Denies: Chills, Fever, Malaise, Night Sweats, Weakness, Fatigue, Weight Loss, Lethargy, Other Eyes: Denies: Pain, Vision change, Conjunctivae inflammation, Eyelid inflammation, Redness, Other Pulmonary: Denies: Dyspnea, Cough, Pleuritic Chest Pain, Other Symptoms Cardiovascular: Denies: Chest Pain, Palpitations, Orthopnea, Paroxysmal Noc. Dyspnea, Edema, Lt Headedness, Other Symptoms Gastrointestinal: Denies: Nausea, Vomiting, Abdominal Pain, Diarrhea, Constipation, Melena, Hematochezia, Other Symptoms Genitourinary: Denies: Dysuria, Frequency, Incontinence, Hematuria, Retention, Other Symptoms Musculoskeletal: Denies: Neck Pain, Back Pain, Shoulder Pain, Arm Pain, Hand Pain, Leg Pain, Foot Pain, Joint Pain, Muscle Pain, Spasms, Other Symptoms Neurological: Denies: Weakness, Numbness, Incoordination, Change in speech, Confusion, Seizures, Other Symptoms Objective Physical Examination General Exam: Positive: Alert, No Acute Distress Eye Exam: Positive: PERRLA, Conjunctiva & lids normal, EOMI ENT Exam: Positive: Atraumatic, Mucous membr. moist/pink, Pharynx Normal Neck Exam: Positive: Supple Chest Exam: Positive: Clear to auscultation, Normal air movement Heart Exam: Positive: Rate Normal, Regular Rhythm, Normal S1, Normal S2 Telemetry: Positive: No significant arrhythmia Abdomen Exam: Positive: Normal bowel sounds, Soft Extremity Exam: Positive: Other (RIGHT STUMP SITE CLEAN. LEFT LEG IN DRESSING) Skin Exam: Positive: Nl turgor and temperature Neuro Exam: Positive: Normal Gait, Normal Speech, Cranial Nerves 3-12 NL, Reflexes 2+ Psych Exam: Positive: Mental status NL, Mood NL, Oriented x 3 Assessment /Plan Problems (1) PVD (peripheral vascular disease) Status: Chronic (2) ESRD (end stage renal disease) Status: Chronic Plan/VTE VTE Prophylaxis Ordered?: Yes Plan Left LE Cellulitis complicated by ischemia and diabetic hc likely BKA on Vanc and Zosyn pre-op for empiric MRSA and pseudomonal coverage ESRD on peritoneal dialysis nephro consulted for dialysis insulin coverage for glycemic control HLD continue statin PVD Hold plavix pre-op vte:heparin [id number] code status: cpr ok but no intubation VS, I&O, 24H, Fishbone Vital Signs/I&O Vital Signs Date Time Temp Pulse Resp B/P (MAP) Pulse Ox O2 Delivery O2 Flow Rate FiO2 04/07/20 10:04 83 170/78 04/07/20 10:00 98.4 16 94 Room Air I&O- Last 24 Hours up to 6 AM 04/07/20 05:59 Intake Total 2480 ml Output Total 1300 ml Balance 1180 ml Laboratory Data 24H LABS Laboratory Tests 2 04/06/20 16:38: Nucleated Red Blood Cells % (auto) 0.0, Anion Gap 9, Glomerular Filtration Rate 5.1L, Calcium Level 9.1, Total Bilirubin 0.7, Aspartate Amino Transf (AST/SGOT) 60H, Alanine Aminotransferase (ALT/SGPT) 87H, Alkaline Phosphatase 602H, Total P rotein 6.5, Albumin 1.9L, Albumin/Globulin Ratio 0.4 04/07/20 07:35: Anion Gap 11, Glomerular Filtration Rate 5.4L, Calcium Level 8.5L, Random Vancomycin Level 12.6 CBC/BMP Laboratory Tests 04/06/20 16:38 04/07/20 07:35 HARSHIL CROCKER MD Apr 07, 2020 14:25
[2020-04-07] MEDS ORDERED: LIDOCAINE 1% MDV 20ML VIAL As Ordered ONE (14:57)
[2020-04-07] MEDS ORDERED: SODIUM CHLORIDE 0.9% INJ 10 ML SYR IV PRN (17:30)
[2020-04-07] MEDS: CEFEPIME HCL 1 GM in D5W MINI-BAG PLUS 50 ML IV SCH (18:12)
[2020-04-07] MEDS: SODIUM CHLORIDE 0.9% INJ 10 ML SYR IV SCH (18:13)
[2020-04-07] MEDS: ROSUVASTATIN 10 MG TAB (CRESTOR) PO SCH (21:50)
[2020-04-08] VITALS (9 sets, daily range): BP systolic 117–145; BP diastolic 58–70
[2020-04-08] MEDS: SODIUM CHLORIDE 0.9% INJ 10 ML SYR IV SCH ×2 (05:35→17:07)
[2020-04-08 05:46] LABS: BASO # 0.1 10^3/uL (0.0-0.2); BASO % 0.4 % (0.0-1.0); EOS # 0.5 10^3/uL (0.0-0.5); EOS % 3.2 % (0.0-3.0); HEMATOCRIT 28.5 % (42.0-52.0); LYMPH # 1.6 10^3/uL (1.5-5.0); LYMPH % 10.7 % (24.0-44.0); MEAN CORPUSCULAR HEMOGLOBIN 31.9 pg (27.0-33.0); MEAN CORPUSCULAR HGB CONC 31.6 g/dl (32.0-36.5); MEAN CORPUSCULAR VOLUME 101.1 fl (80.0-96.0); MONO # 1.1 10^3/uL (0.0-0.8); MONO % 7.7 % (0.0-5.0); NEUTROPHILS # 11.3 10^3/uL (1.5-8.5); NEUTROPHILS % 77.4 % (36.0-66.0); PLATELET COUNT, AUTOMATED 366 10^3/uL (150-450); RED BLOOD COUNT 2.82 10^6/uL (4.30-6.10); WHITE BLOOD COUNT 14.6 10^3/uL (4.0-10.0)
[2020-04-08 06:34] LABS: ALBUMIN 1.6 GM/DL (3.2-5.2); BILIRUBIN,TOTAL 0.5 MG/DL (0.2-1.0); CALCIUM LEVEL 8.1 MG/DL (8.8-10.2); CREATININE FOR GFR 10.3 MG/DL (0.70-1.30); GLOMERULAR FILTRATION RATE 5.4 (>49); POTASSIUM SERUM 3.6 MEQ/L (3.5-5.1); TOTAL PROTEIN 5.6 GM/DL (6.4-8.2); VANCOMYCIN RANDOM 19.1 UG/ML
--- NOTE | 2020-04-08 07:17 | IPNPDOC ---
Date Seen The patient was seen on 04/08/20. Progress Note Pt seen and examined last night due to concern for bleeding, but it was just a bit of blood mixed with a lot of serous drainage. No active bleeding noted. Cleaned and redressed. 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 Also, he had a few faint red spots on his medial right leg, and his thought it might be rash. It looks benign, doesnt itch, and Im guessing its irritation from having the plastic pillows under his left leg irritating the skin of the medial right leg. I put pillow cases over the pillows and added a fabric kelvin pad over the pillows. Hopefully this will help. He seems unconcerned. We discussed today the risks benefits and alternatives to L BKA tomorrow. He is agreeable. Consent obtained. NPO. I had a picc placed yesterday for better IV access while inpatient. I d/w pt again about going to ARU postop, but he declines. Therefore, we are not planning to place permcath today for conversion to HD in rehab, and will continue PD while inpatient. VS, I&O, 24H, Gerardo Vital Signs/I&O Vital Signs Date Time Temp Pulse Resp B/P (MAP) Pulse Ox O2 Delivery O2 Flow Rate FiO2 04/08/20 06:00 98.1 82 16 134/58 (83) 98 Room Air I&O- Last 24 Hours up to 6 AM 04/08/20 05:59 Intake Total 31581 ml Output Total 24393 ml Balance 1165 ml Laboratory Data 24H LABS Laboratory Tests 2 04/07/20 07:35: Anion Gap 11, Glomerular Filtration Rate 5.4L, Calcium Level 8.5L, Random Vancomycin Level 12.6 04/08/20 00:00: Anion Gap 11, Glomerular Filtration Rate 5.4L, Calcium Level 8.1L, Random Vancomycin Level 19.1, Immature Granulocyte % (Auto) 0.6, Neutrophils (%) (Auto) 77.4H, Lymphocytes (%) (Auto) 10.7L, Monocytes (%) (Auto) 7.7H, Eosinophils (%) (Auto) 3.2H, Basophils (%) (Auto) 0.4, Neutrophils # (Auto) 11.3H, Lymphocytes # (Auto) 1.6, Monocytes # (Auto) 1.1H, Eosinophils # (Auto) 0.5, Basophils # (Auto) 0.1, Nucleated Red Blood Cells % (auto) 0.0, Total Bilirubin 0.5, Aspartate Amino Transf (AST/SGOT) 69H, Alanine Aminotransferase (ALT/SGPT) 98H, Alkaline Phosphatase 570H, Total Protein 5.6L, Albumin 1.6L, Albumin/Globulin Ratio 0.4 CBC/BMP Laboratory Tests 04/07/20 07:35 04/08/20 00:00 ZACARIAS PATRICK MD Apr 08, 2020 07:17
[2020-04-08] MEDS: HumaLOG INSULIN (NovoLOG) PER UNIT SC SCH ×4 (07:30→21:59)
[2020-04-08] MEDS: SUCROFERRIC OXYHYDROXIDE 500MG CHEW TAB (VELPHORO) PO SCH ×3 (07:36→17:06)
[2020-04-08] MEDS: ASPIRIN 81 MG ENTERIC TAB PO SCH (08:25)
[2020-04-08] MEDS: ATROPINE SULFATE 1% OP SOLN 2 ML BTL OS SCH (08:30)
[2020-04-08] MEDS: BRINZOLAMIDE 1 % OPHTH SUSP (AZOPT) 10ML OS SCH ×2 (08:32→21:59)
[2020-04-08] MEDS: LEVEMIR (INSULIN DETEMIR) 1 UNITS/0.01ML SC SCH ×2 (08:50→21:58)
[2020-04-08] MEDS: HEPARIN SOD (PORCINE) 5000UNITS/ML 1ML VIAL/SYRINGE SC SCH ×2 (08:56→21:57)
[2020-04-08] MEDS ORDERED: DARBEPOETIN 200MCG/0.4ML *NON-DIALYSIS* SYRINGE (J0881 PER 1MCG) SC SCH (09:00)
[2020-04-08] MEDS: LACTOBACILLUS ACIDOPHILUS CAP (BACID) PO SCH (09:00)
[2020-04-08] MEDS ORDERED: VANCOMYCIN HCL 500 MG in D5W MINI-BAG PLUS 100 ML IV ONE (09:00)
[2020-04-08] MEDS ORDERED: BUPIVACAINE/EPIN 0.5% 30 ML VIAL As Ordered ONE (10:49)
[2020-04-08] MEDS ORDERED: ONDANSETRON 4MG/2ML VIAL As Ordered ONE (11:45)
[2020-04-08] MEDS ORDERED: LIDOCAINE 2% 100MG/5ML SDV (FOR ANES.) As Ordered ONE (11:45)
[2020-04-08] MEDS ORDERED: METOCLOPRAMIDE INJ 10MG/2ML VIAL (J2765 PER 1) As Ordered ONE (11:45)
[2020-04-08] MEDS ORDERED: ROCURONIUM BROMIDE 50 MG/5 ML VIAL As Ordered ONE (11:45)
[2020-04-08] MEDS ORDERED: propofoL 200 MG/20 ML VIAL As Ordered ONE (11:45)
--- NOTE | 2020-04-08 11:45 | IPNPDOC ---
Subjective Date Seen The patient was seen on 04/08/20. Subjective Chief Complaint/HPI pt is comfortable, in no distress. General: Denies: ROS Unobtainable, Chills, Night Sweats, Fatigue, Malaise, Normal Appetite, Other Symptoms Constitutional: Denies: Chills, Fever, Malaise, Night Sweats, Weakness, Fatigue, Weight Loss, Lethargy, Other Skin: Denies: Rash, Lesions, Jaundice, Bruising, Itching, Dry, Breakdown, Nail Changes, Other Pulmonary: Denies: Dyspnea, Cough, Pleuritic Chest Pain, Other Symptoms Cardiovascular: Denies: Chest Pain, Palpitations, Orthopnea, Paroxysmal Noc. Dyspnea, Edema, Lt Headedness, Other Symptoms Gastrointestinal: Denies: Nausea, Vomiting, Abdominal Pain, Diarrhea, Co nstipation, Melena, Hematochezia, Other Symptoms Genitourinary: Denies: Dysuria, Frequency, Incontinence, Hematuria, Retention, Other Symptoms Musculoskeletal: Denies: Neck Pain, Back Pain, Shoulder Pain, Arm Pain, Hand Pain, Leg Pain, Foot Pain, Joint Pain, Muscle Pain, Spasms, Other Symptoms Neurological: Denies: Weakness, Numbness, Incoordination, Change in speech, Confusion, Seizures, Other Symptoms Objective Physical Examination Chest Exam: Positive: Clear to auscultation, Normal air movement Heart Exam: Positive: Rate Normal, Regular Rhythm, Normal S1, Normal S2 Abdomen Exam: Positive: Normal bowel sounds, Soft Extremity Exam: Positive: Other (RIGHT STUMP SITE CLEAN. LEFT LEG IN DRESSING) Skin Exam: Positive: Nl turgor and temperature Assessment /Plan Problems (1) PVD (peripheral vascular disease) Status: Chronic (2) ESRD (end stage renal disease) Status: Chronic Plan/VTE VTE Prophylaxis Ordered?: Yes Plan Left LE Cellulitis complicated by ischemia and diabetic hc scheduled for BKA today Vanc and Zosyn pre-op for empiric MRSA and pseudomonal coverage ESRD on peritoneal dialysis Discussed with Dr Quinteros Continue PD insulin coverage for glycemic control HLD continue statin PVD Hold plavix pre-op vte:heparin [id number] code status: cpr ok but no intubation VS, I&O, 24H, Fishbone Vital Signs/I&O Vital Signs Date Time Temp Pulse Resp B/P (MAP) Pulse Ox O2 Delivery O2 Flow Rate FiO2 04/08/20 08:25 99 124/61 8/26/20 06:00 98.1 16 98 Room Air I&O- Last 24 Hours up to 6 AM 04/08/20 06:00 Intake Total 47477 ml Output Total 54091 ml Balance 1165 ml Laboratory Data 24H LABS Laboratory Tests 2 04/08/20 00:00: Immature Granulocyte % (Auto) 0.6, Neutrophils (%) (Auto) 77.4H, Lymphocytes (%) (Auto) 10.7L, Monocytes (%) (Auto) 7.7H, Eosinophils (%) (Auto) 3.2H, Basophils (%) (Auto) 0.4, Neutrophils # (Auto) 11.3H, Lymphocytes # (Auto) 1.6, Monocytes # (Auto) 1.1H, Eosinophils # (Auto) 0.5, Basophils # (Auto) 0.1, Nucleated Red Blood Cells % (auto) 0.0, Anion Gap 11, Glomerular Filtration Rate 5.4L, Calcium Level 8.1L, Total Bilirubin 0.5, Aspartate Amino Transf (AST/SGOT) 69H, Alanine Aminotransferase (ALT/SGPT) 98H, Alkaline Phosphatase 570H, Total Protein 5.6L, Albumin 1.6L, Albumin/Globulin Ratio 0.4, Random Vancomycin Level 19.1 CBC/BMP Laboratory Tests 04/08/20 00:00 HARSHIL CROCKER MD Apr 08, 2020 11:45
[2020-04-08] MEDS ORDERED: fentaNYL 100 MCG/2 ML INJECTION (J3010) As Ordered ONE (11:46)
[2020-04-08] MEDS ORDERED: MIDAZOLAM INJ 2MG/2ML VIAL (J2250 PER 1MG) As Ordered ONE (11:46)
[2020-04-08] MEDS ORDERED: ceFAZolin 1GM VIAL (J0690 PER 500MG) As Ordered ONE (11:48)
--- NOTE | 2020-04-08 13:49 | ROOPDOC ---
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 2 days ago, he underwent a left 18 amputation at the ankle to remove the tissue and allow the swelling to go down in the infection to clear. We now bring him back for a planned completion amputation of the left lower extremity, and we are going to hopefully be successful with a left below-knee amputation now that the infection has cleared. Risks benefits and alternatives to a left below-knee amputation were explained to the patient he is agreeable to proceed. Informed consent was obtained. REPORT OF OPERATION: The patient was brought to the operating room in stable condition. General anesthesia was administered along with antibiotics without complication. His left lower extremity was prepped and draped in a sterile fashion. A timeout was performed. A transverse incision was made in the anterior aspect of the lower legs 15 cm distal to the tibial plateau. This is carried down through the tissues with Bovie cautery. Vascular structures were suture ligated and divided. We then used the skin knife to create a long posterior flap. Bovie cautery was used to divide the subcutaneous tissue and muscle. Vessels were suture ligated and divided. We then circumferentially elevated the periosteum on the tibia and fibula. The tibia was cut to 12 cm length and be veled anteriorly to prevent erosion of the bone at the anterior skin. A rasp was used to smooth the bone. We then transected the fibula slightly more proximal end of rasp was used to smooth the bone. We then completed the posterior flap with Bovie cautery and what was remaining of the lower leg was sent for pathology. The nerves were high ligated. Local anesthesia was administered around the perineural tissues. We then utilized Bovie cautery and suture ligation to gain hemostasis. The stump was copiously irrigated. The posterior flap was cut to appropriate length for a tension-free closure. The deep muscle fascias were approximated over the tibia to protect the bone. We then closed another layer of deep fascia over this. We then irrigated a second time. The superficial fascia was then approximated with [id number] Vicryl sutures. The skin was approximated with nylon mattress sutures and ghislaine were used in between the mattress sutures as a final skin closure. The skin was cleaned and dried. Xeroform plus kerlix in an Eladio wrap or uses a final dressing. The patient was allowed to awaken from anesthesia was taken to recovery in stable condition. He tolerated the procedure well. ESTIMATED BLOOD LOSS: Approximately 50 mL. COMPLICATIONS: None. SPECIMEN: Lower leg sent for pathology PLAN: Supportive care s/p L BKA, PT/OT, analgesia prn. High protein diet to help with wound healing. We appreciate the opportunity to participate in the care of this patient. ZACARIAS ANDREW MD Apr 08, 2020 13:49
[2020-04-08] MEDS ORDERED: oxyCODONE 5MG TAB As Ordered ONE (14:07)
[2020-04-08] MEDS ORDERED: HYDROMORPHONE HCL 0.5 MG/ 0.5 ML SYRINGE (J1170 PER 1) IV PRN (14:15)
[2020-04-08] MEDS ORDERED: fentaNYL 100 MCG/2 ML INJECTION (J3010) IV PRN (14:15)
[2020-04-08] MEDS ORDERED: oxyCODONE 5MG TAB PO PRN (14:15)
[2020-04-08] MEDS ORDERED: ONDANSETRON 4MG/2ML VIAL IV PRN (14:15)
[2020-04-08] MEDS: CEFEPIME HCL 1 GM in D5W MINI-BAG PLUS 50 ML IV SCH (18:28)
[2020-04-08] MEDS: ROSUVASTATIN 10 MG TAB (CRESTOR) PO SCH (21:57)
[2020-04-09 02:00] VITALS: BP 135/61
[2020-04-09] MEDS: SODIUM CHLORIDE 0.9% INJ 10 ML SYR IV SCH ×2 (05:35→17:11)
[2020-04-09 05:58] LABS: BASO # 0.1 10^3/uL (0.0-0.2); BASO % 0.3 % (0.0-1.0); EOS # 0.3 10^3/uL (0.0-0.5); EOS % 2.1 % (0.0-3.0); HEMATOCRIT 28.2 % (42.0-52.0); HEMOGLOBIN 8.6 g/dl (13.5-17.5); LYMPH # 1.4 10^3/uL (1.5-5.0); LYMPH % 8.8 % (24.0-44.0); MEAN CORPUSCULAR HEMOGLOBIN 31.3 pg (27.0-33.0); MEAN CORPUSCULAR HGB CONC 30.5 g/dl (32.0-36.5); MEAN CORPUSCULAR VOLUME 102.5 fl (80.0-96.0); MONO # 1.3 10^3/uL (0.0-0.8); MONO % 8.2 % (0.0-5.0); NEUTROPHILS # 12.3 10^3/uL (1.5-8.5); NEUTROPHILS % 79.8 % (36.0-66.0); PLATELET COUNT, AUTOMATED 368 10^3/uL (150-450); RED BLOOD COUNT 2.75 10^6/uL (4.30-6.10); WHITE BLOOD COUNT 15.4 10^3/uL (4.0-10.0)
[2020-04-09 06:00] VITALS: BP 141/56
[2020-04-09 06:26] LABS: VANCOMYCIN RANDOM 20.7 UG/ML
[2020-04-09] MEDS: SUCROFERRIC OXYHYDROXIDE 500MG CHEW TAB (VELPHORO) PO SCH ×3 (08:40→17:10)
[2020-04-09] MEDS: HumaLOG INSULIN (NovoLOG) PER UNIT SC SCH ×4 (08:41→21:34)
[2020-04-09] MEDS: ATROPINE SULFATE 1% OP SOLN 2 ML BTL OS SCH (08:41)
[2020-04-09] MEDS: BRINZOLAMIDE 1 % OPHTH SUSP (AZOPT) 10ML OS SCH ×2 (08:41→21:34)
[2020-04-09] MEDS: LACTOBACILLUS ACIDOPHILUS CAP (BACID) PO SCH (08:42)
[2020-04-09] MEDS: HEPARIN SOD (PORCINE) 5000UNITS/ML 1ML VIAL/SYRINGE SC SCH ×2 (08:42→21:34)
[2020-04-09] MEDS: LEVEMIR (INSULIN DETEMIR) 1 UNITS/0.01ML SC SCH ×2 (08:42→21:33)
[2020-04-09] MEDS: ASPIRIN 81 MG ENTERIC TAB PO SCH (08:42)
--- NOTE | 2020-04-09 09:02 | IPNPDOC ---
Text Note Date of Service The patient was seen on 04/09/20. NOTE Vascular Surgery Dr Andrew. Pt seen and examined POD1 Lt BKA. Pt sitting up in bed, ate breakfast, Denies pain currently, states pain is controlled. Small amount of dried blood on dressing, no active bleeding currently noted. Shahab/sutures intact. The incision site is thoroughly cleaned, xeroform, fluffs, kerlix, anthony wrap re applied. The pt re iterates again he does not want ARU. PT pending. VS,Fishbone, I+O VS, Fishbone, I+O Laboratory Tests 04/09/20 05:20 Vital Signs Date Time Temp Pulse Resp B/P (MAP) Pulse Ox O2 Delivery O2 Flow Rate FiO2 04/09/20 08:42 94 156/76 04/09/20 06:00 98.9 18 93 Room Air I&O- Last 24 Hours up to 6 AM 04/09/20 05:59 Intake Total 8860 ml Output Total 9250 ml Balance -390 ml Dulce Espinal Apr 09, 2020 09:02
[2020-04-09] MEDS ORDERED: SENNA 8.6 MG TAB (SENOKOT) PO PRN (09:45)
[2020-04-09 10:22] LABS: ALBUMIN 1.8 GM/DL (3.2-5.2); CALCIUM LEVEL 8.1 MG/DL (8.8-10.2); CREATININE FOR GFR 10.2 MG/DL (0.70-1.30); GLOMERULAR FILTRATION RATE 5.5 (>49); PHOSPHORUS LEVEL 4.8 MG/DL (2.5-4.9); POTASSIUM SERUM 4.2 MEQ/L (3.5-5.1)
--- NOTE | 2020-04-09 13:00 | IPNPDOC ---
Subjective Date Seen The patient was seen on 04/09/20. Subjective Chief Complaint/HPI no new complaints General: Denies: ROS Unobtainable, Chills, Night Sweats, Fatigue, Malaise, Normal Appetite, Other Symptoms Pulmonary: Denies: Dyspnea, Cough, Pleuritic Chest Pain, Other Symptoms Cardiovascular: Denies: Chest Pain, Palpitations, Orthopnea, Paroxysmal Noc. Dyspnea, Edema, Lt Headedness, Other Symptoms Gastrointestinal: Denies: Nausea, Vomiting, Abdominal Pain, Diarrhea, Constipation, Melena, Hematochezia, Other Symptoms Endocrine: Denies: Polydipsia, Polyphagia, Polyuria, Heat Intolerance, Cold Intolerance, Other Endocrine Sx Musculoskeletal: Denies: Neck Pain, Back Pain, Shoulder Pain, Arm Pain, Hand Pain, Leg Pain, Foot Pain, Joint Pain, Muscle Pain, Spasms, Other Symptoms Neurological: Denies: Weakness, Numbness, Incoordination, Change in speech, Confusion, Seizures, Other Symptoms Objective Physical Examination Chest Exam: Positive: Clear to auscultation, Normal air movement Heart Exam: Positive: Rate Normal, Regular Rhythm, Normal S1, Normal S2 Abdomen Exam: Positive: Normal bowel sounds, Soft Extremity Exam: Positive: Other (RIGHT STUMP SITE CLEAN. LEFT LEG IN DRESSING) Skin Exam: Positive: Nl turgor and temperature Assessment /Plan Problems (1) PVD (peripheral vascular disease) Status: Chronic Problem Text: S/P left BKA Vascular F/u appreciated PT in progress DC with wheelchair once all arrangements are made (WHEELCHAIR) A.The beneficiary has a mobility limitation that significantly impairs his ability to participate in one or more mobility-related activities of daily living (MRADLs) such as toileting,feeding.dressing,grooming and bathingin customary lacations in the home. B. The beneficiary's mobility limitations cannot be sufficiently resolved by the use of an appropriately fitted cane or walker. D.Use of manual wheelchair will significantly improve the beneficiary's ability to participate in MRADLs and the beneficiary will use it on a regular basis in the home. F. The beneficiary has sufficient upper extremity function and other physical and mental capabilities needed to safely self-propelthe manual wheelchairthat is provided in the homeduring a typical day. (2) ESRD (end stage renal disease) Status: Chronic Problem Text: PD in progess Nephrology F/U appreciated Plan/VTE VTE Prophylaxis Ordered?: Yes VS, I&O, 24H, Fishbone Vital Signs/I&O Vital Signs Date Time Temp Pulse Resp B/P (MAP) Pulse Ox O2 Delivery O2 Flow Rate FiO2 04/09/20 08:42 94 156/76 04/09/20 06:00 98.9 18 93 Room Air I&O- Last 24 Hours up to 6 AM 04/09/20 06:00 Intake Total 8860 ml Output Total 9250 ml Balance -390 ml Laboratory Data 24H LABS Laboratory Tests 2 04/09/20 05:20: Immature Granulocyte % (Auto) 0.8, Neutrophils (%) (Auto) 79.8H, Lymphocytes (%) (Auto) 8.8L, Monocytes (%) (Auto) 8.2H, Eosinophils (%) (Auto) 2.1, Basophils (%) (Auto) 0.3, Neutrophils # (Auto) 12.3H, Lymphocytes # (Auto) 1.4L, Monocytes # (Auto) 1.3H, Eosinophils # (Auto) 0.3, Basophils # (Auto) 0.1, Nucleated Red Blood Cells % (auto) 0.0, Anion Gap 12, Glomerular Filtration Rate 5.5L, Calcium Level 8.1L, Phosphorus Level 4.8, Albumin 1.8L, Random Vancomycin Level 20.7 CBC/BMP Laboratory Tests 04/09/20 05:20 HARSHIL CROCKER MD Apr 09, 2020 13:00
[2020-04-09 14:00] VITALS: BP 120/61
[2020-04-09] MEDS: CEFEPIME HCL 1 GM in D5W MINI-BAG PLUS 50 ML IV SCH (18:18)
[2020-04-09] MEDS: ROSUVASTATIN 10 MG TAB (CRESTOR) PO SCH (21:34)
[2020-04-09 22:00] VITALS: BP 146/63
[2020-04-10] MEDS: SODIUM CHLORIDE 0.9% INJ 10 ML SYR IV SCH ×2 (05:42→22:37)
[2020-04-10 06:00] VITALS: BP 122/68
[2020-04-10 06:14] LABS: BASO # 0.1 10^3/uL (0.0-0.2); BASO % 0.3 % (0.0-1.0); EOS # 0.5 10^3/uL (0.0-0.5); EOS % 2.6 % (0.0-3.0); HEMATOCRIT 27.1 % (42.0-52.0); HEMOGLOBIN 8.6 g/dl (13.5-17.5); LYMPH # 1.8 10^3/uL (1.5-5.0); LYMPH % 10.2 % (24.0-44.0); MEAN CORPUSCULAR HGB CONC 31.7 g/dl (32.0-36.5); MEAN CORPUSCULAR VOLUME 100.7 fl (80.0-96.0); MONO # 1.3 10^3/uL (0.0-0.8); MONO % 7.3 % (0.0-5.0); NEUTROPHILS % 78.5 % (36.0-66.0); PLATELET COUNT, AUTOMATED 393 10^3/uL (150-450); RED BLOOD COUNT 2.69 10^6/uL (4.30-6.10); WHITE BLOOD COUNT 17.8 10^3/uL (4.0-10.0)
[2020-04-10] MEDS: ATROPINE SULFATE 1% OP SOLN 2 ML BTL OS SCH (08:37)
[2020-04-10] MEDS: BRINZOLAMIDE 1 % OPHTH SUSP (AZOPT) 10ML OS SCH ×2 (08:37→22:52)
[2020-04-10] MEDS: SUCROFERRIC OXYHYDROXIDE 500MG CHEW TAB (VELPHORO) PO SCH ×3 (08:37→18:00)
[2020-04-10] MEDS: LACTOBACILLUS ACIDOPHILUS CAP (BACID) PO SCH (08:38)
[2020-04-10] MEDS: ASPIRIN 81 MG ENTERIC TAB PO SCH (08:38)
[2020-04-10] MEDS: HEPARIN SOD (PORCINE) 5000UNITS/ML 1ML VIAL/SYRINGE SC SCH ×2 (08:38→22:39)
[2020-04-10] MEDS: HumaLOG INSULIN (NovoLOG) PER UNIT SC SCH ×4 (08:39→20:34)
[2020-04-10] MEDS: LEVEMIR (INSULIN DETEMIR) 1 UNITS/0.01ML SC SCH ×2 (08:39→22:40)
[2020-04-10] MEDS ORDERED: VANCOMYCIN HCL 500 MG in D5W MINI-BAG PLUS 100 ML IV ONE (09:00)
--- NOTE | 2020-04-10 09:44 | IPNPDOC ---
Text Note Date of Service The patient was seen on 04/10/20. NOTE Vascular Surgery Dr Andrew. Pt seen and examined POD2 Lt BKA. Pt sitting up in bed, ate breakfast, Denies pain currently, states pain is controlled. Appears comfortable. The pt's dressing is changed tis AM. [place]/sutures intact. The incision site is thoroughly cleaned, xeroform, fluffs, kerlix, anthony wrap re applied. The pt re iterates again he does not want ARU. PT eval 04/09 Not safe. Continue to monitor. VS,Fishbone, I+O VS, Fishbone, I+O Laboratory Tests 04/10/20 06:00 Vital Signs Date Time Temp Pulse Resp B/P (MAP) Pulse Ox O2 Delivery O2 Flow Rate FiO2 04/10/20 08:38 90 125/66 04/10/20 06:00 99.1 16 94 Room Air I&O- Last 24 Hours up to 6 AM 04/10/20 05:59 Intake Total 09449 ml Output Total 53345 ml Balance -790 ml Dulce Espinal Apr 10, 2020 09:44
[2020-04-10] MEDS ORDERED: MIRALAX *UNIT DOSE* 17GM PACKET PO SCH (09:45)
--- NOTE | 2020-04-10 11:34 | IPNPDOC ---
Subjective Date Seen The patient was seen on 04/10/20. Subjective Chief Complaint/HPI pt comfortable, in no distress,PT in progress General: Denies: ROS Unobtainable, Chills, Night Sweats, Fatigue, Malaise, No rmal Appetite, Other Symptoms Constitutional: Denies: Chills, Fever, Malaise, Night Sweats, Weakness, Fatigue, Weight Loss, Lethargy, Other Skin: Denies: Rash, Lesions, Jaundice, Bruising, Itching, Dry, Breakdown, Nail Changes, Other Pulmonary: Denies: Dyspnea, Cough, Pleuritic Chest Pain, Other Symptoms Cardiovascular: Denies: Chest Pain, Palpitations, Orthopnea, Paroxysmal Noc. Dyspnea, Edema, Lt Headedness, Other Symptoms Gastrointestinal: Denies: Nausea, Vomiting, Abdominal Pain, Diarrhea, Constipation, Melena, Hematochezia, Other Symptoms Musculoskeletal: Denies: Neck Pain, Back Pain, Shoulder Pain, Arm Pain, Hand Pain, Leg Pain, Foot Pain, Joint Pain, Muscle Pain, Spasms, Other Symptoms Neurological: Denies: Weakness, Numbness, Incoordination, Change in speech, Confusion, Seizures, Other Symptoms Objective Physical Examination Chest Exam: Positive: Clear to auscultation, Normal air movement Heart Exam: Positive: Rate Normal, Regular Rhythm, Normal S1, Normal S2 Abdomen Exam: Positive: Normal bowel sounds, Soft Extremity Exam: Positive: Other (RIGHT STUMP SITE CLEAN. LEFT LEG IN DRESSING) Skin Exam: Positive: Nl turgor and temperature Assessment /Plan Problems (1) PVD (peripheral vascular disease) Status: Chronic Problem Text: S/P left BKA Pt yet not cleared by PT Vascular F/U appreciated Dsg changed by dr maharaj today PT in progress DC with wheelchair once all arrangements are made (WHEELCHAIR) A.The beneficiary has a mobility limitation that significantly impairs his ability to participate in one or more mobility-related activities of daily living (MRADLs) such as toileting,feeding.dressing,grooming and bathingin customary lacations in the home. B. The beneficiary's mobility limitations cannot be sufficiently resolved by the use of an appropriately fitted cane or walker. D.Use of manual wheelchair will significantly improve the beneficiary's ability to participate in MRADLs and the beneficiary will use it on a regular basis in the home. F. The beneficiary has sufficient upper extremity function and other physical and mental capabilities needed to safely self-propelthe manual wheelchairthat is provided in the homeduring a typical day. (2) ESRD (end stage renal disease) Status: Chronic Problem Text: PD in progess Nephrology F/U appreciated Plan/VTE VTE Prophylaxis Ordered?: Yes VS, I&O, 24H, Fishbone Vital Signs/I&O Vital Signs Date Time Temp Pulse Resp B/P (MAP) Pulse Ox O2 Delivery O2 Flow Rate FiO2 04/10/20 08:38 90 125/66 04/10/20 06:00 99.1 16 94 Room Air I&O- Last 24 Hours up to 6 AM 04/10/20 06:00 Intake Total 33605 ml Output Total 75373 ml Balance -790 ml Laboratory Data 24H LABS Laboratory Tests 2 04/10/20 06:00: Immature Granulocyte % (Auto) 1.1, Neutrophils (%) (Auto) 78.5H, Lymphocytes (%) (Auto) 10.2L, Monocytes (%) (Auto) 7.3H, Eosinophils (%) (Auto) 2.6, Basophils (%) (Auto) 0.3, Neutrophils # (Auto) 14.0H, Lymphocytes # (Auto) 1.8, Monocytes # (Auto) 1.3H, Eosinophils # (Auto) 0.5, Basophils # (Auto) 0.1, Nucleated Red Blood Cells % (auto) 0.0, Random Vancomycin Level 18.4 CBC/BMP Laboratory Tests 04/10/20 06:00 HARSHIL CROCKER MD Apr 10, 2020 11:34
[2020-04-10] MEDS: MIRALAX *UNIT DOSE* 17GM PACKET PO SCH (12:20)
[2020-04-10] MEDS: TIMOLOL MALEATE 0.5% OPHTH SOLN 5 ML OU SCH ×2 (12:21→22:58)
[2020-04-10] MEDS: BRIMONIDINE 0.15% OPHTH SOLN 5 ML OU SCH ×2 (12:21→22:57)
[2020-04-10 14:00] VITALS: BP 112/58
[2020-04-10] MEDS ORDERED: HEPARIN SOD (PORCINE) 5000UNITS/ML 1ML VIAL/SYRINGE PD ONE (14:15)
--- NOTE | 2020-04-10 17:54 | IPNPDOC ---
Date Seen The patient was seen on 04/10/20. Progress Note Patient seen and examined. He and his were counseled about post discharge plans. We'd like to see the patient back in 2-3 weeks postop for staple removal, and 3-4 weeks postop for suture removal. We'd like him to at least have his ghislaine out before using a stump java software architect. I asked them about the possibility of going to a RU despite the patient's adamant protestations against this, and they say that physical therapy will clear him to go home by next week. I bring this up again because if the patient does go to ARU, he will require a PermCath, and I reminded them that I will be gone for 2 weeks so I would want to do that this evening if he needed it. He says for sure he is not going to ARU regardless, and that he is going home, so he does not need a PermCath. I went over the patient's home care for the stump with his . The incision will need to be cleaned and dried every day, and dry dressing and Eladio wrap placed. She has done this before in the right lower extremity and is agreeable. He needs to continue to work to extend his knee to prevent contracture. We continue to encourage high-protein diet to help with wound healing. So far, the stump is healing well and were very pleased with his progress. We will see him soon outpatient for his staple removal appointment. He is agreeable. VS, I&O, 24H, Fishbone Vital Signs/I&O Vital Signs Date Time Temp Pulse Resp B/P (MAP) Pulse Ox O2 Delivery O2 Flow Rate FiO2 04/10/20 14:00 98.9 79 19 112/58 (76) 97 Room Air I&O- Last 24 Hours up to 6 AM0 04/10/20 06:00 Intake Total 16384 ml Output Total 08569 ml Balance -790 ml Laboratory Data 24H LABS Laboratory Tests 2 04/10/20 06:00: Immature Granulocyte % (Auto) 1.1, Neutrophils (%) (Auto) 78.5H, Lymphocytes (%) (Auto) 10.2L, Monocytes (%) (Auto) 7.3H, Eosinophils (%) (Auto) 2.6, Basophils (%) (Auto) 0.3, Neutrophils # (Auto) 14.0H, Lymphocytes # (Auto) 1.8, Monocytes # (Auto) 1.3H, Eosinophils # (Auto) 0.5, Basophils # (Auto) 0.1, Nucleated Red Blood Cells % (auto) 0.0, Random Vancomycin Level 18.4 CBC/BMP Laboratory Tests 04/10/20 06:00 ZACARIAS PATRICK MD Apr 10, 2020 17:54
[2020-04-10] MEDS: CEFEPIME HCL 1 GM in D5W MINI-BAG PLUS 50 ML IV SCH (19:00)
[2020-04-10] MEDS ORDERED: LUMIGAN OU SCH (21:00)
[2020-04-10 22:00] VITALS: BP 119/58
[2020-04-10] MEDS: ROSUVASTATIN 10 MG TAB (CRESTOR) PO SCH (22:39)
[2020-04-10] MEDS: LATANOPROST 0.005% OPHTH SOLN 2.5 ML OU SCH (22:51)
[2020-04-11] MEDS: SODIUM CHLORIDE 0.9% INJ 10 ML SYR IV SCH ×2 (05:46→18:15)
[2020-04-11 06:00] VITALS: BP 148/77
[2020-04-11 06:07] LABS: BASO # 0.1 10^3/uL (0.0-0.2); BASO % 0.3 % (0.0-1.0); EOS # 0.6 10^3/uL (0.0-0.5); EOS % 2.6 % (0.0-3.0); HEMATOCRIT 29.2 % (42.0-52.0); HEMOGLOBIN 9.1 g/dl (13.5-17.5); LYMPH # 2.1 10^3/uL (1.5-5.0); LYMPH % 9.7 % (24.0-44.0); MEAN CORPUSCULAR HEMOGLOBIN 31.7 pg (27.0-33.0); MEAN CORPUSCULAR HGB CONC 31.2 g/dl (32.0-36.5); MEAN CORPUSCULAR VOLUME 101.7 fl (80.0-96.0); MONO # 1.4 10^3/uL (0.0-0.8); MONO % 6.3 % (0.0-5.0); NEUTROPHILS # 17.2 10^3/uL (1.5-8.5); NEUTROPHILS % 79.6 % (36.0-66.0); PLATELET COUNT, AUTOMATED 443 10^3/uL (150-450); RED BLOOD COUNT 2.87 10^6/uL (4.30-6.10); WHITE BLOOD COUNT 21.6 10^3/uL (4.0-10.0)
[2020-04-11 06:27] LABS: VANCOMYCIN RANDOM 25.1 UG/ML
[2020-04-11] MEDS: SUCROFERRIC OXYHYDROXIDE 500MG CHEW TAB (VELPHORO) PO SCH ×3 (08:49→17:14)
[2020-04-11] MEDS: HumaLOG INSULIN (NovoLOG) PER UNIT SC SCH ×4 (08:49→20:33)
[2020-04-11] MEDS: LACTOBACILLUS ACIDOPHILUS CAP (BACID) PO SCH (08:50)
[2020-04-11] MEDS: ASPIRIN 81 MG ENTERIC TAB PO SCH (08:55)
[2020-04-11] MEDS: MIRALAX *UNIT DOSE* 17GM PACKET PO SCH (08:55)
[2020-04-11] MEDS: HEPARIN SOD (PORCINE) 5000UNITS/ML 1ML VIAL/SYRINGE SC SCH ×2 (08:56→22:16)
[2020-04-11] MEDS: LEVEMIR (INSULIN DETEMIR) 1 UNITS/0.01ML SC SCH ×2 (08:56→20:50)
[2020-04-11] MEDS: BRINZOLAMIDE 1 % OPHTH SUSP (AZOPT) 10ML OS SCH ×2 (08:57→22:16)
[2020-04-11] MEDS: TIMOLOL MALEATE 0.5% OPHTH SOLN 5 ML OU SCH ×2 (08:57→22:21)
[2020-04-11] MEDS: ATROPINE SULFATE 1% OP SOLN 2 ML BTL OS SCH (08:57)
[2020-04-11] MEDS: BRIMONIDINE 0.15% OPHTH SOLN 5 ML OU SCH ×2 (08:57→22:21)
--- NOTE | 2020-04-11 11:12 | IPNPDOC ---
Subjective Date Seen The patient was seen on 04/11/20. Subjective Chief Complaint/HPI pt comfortable, wants to leave on Monday, afebrile, in no distress General: Denies: ROS Unobtainable, Chills, Night Sweats, Fatigue, Malaise, Normal Appetite, Other Symptoms Constitutional: Denies: Chills, Fever, Malaise, Night Sweats, Weakness, Fatigue, Weight Loss, Lethargy, Other Skin: Denies: Rash, Lesions, Jaundice, Bruising, Itching, Dry, Breakdown, Nail Changes, Other Pulmonary: Denies: Dyspnea, Cough, Pleuritic Chest Pain, Other Symptoms Cardiovascular: Denies: Chest Pain, Palpitations, Orthopnea, Paroxysmal Noc. Dyspnea, Edema, Lt Headedness, Other Symptoms Gastrointestinal: Denies: Nausea, Vomiting, Abdominal Pain, Diarrhea, Constipation, Melena, Hematochezia, Other Symptoms Musculoskeletal: Denies: Neck Pain, Back Pain, Shoulder Pain, Arm Pain, Hand Pain, Leg Pain, Foot Pain, Joint Pain, Muscle Pain, Spasms, Other Symptoms Neurological: Denies: Weakness, Numbness, Incoordination, Change in speech, Confusion, Seizures, Other Symptoms Objective Physical Examination Chest Exam: Positive: Clear to auscultation, Normal air movement Heart Exam: Positive: Rate Normal, Regular Rhythm, Normal S1, Normal S2 Abdomen Exam: Positive: Normal bowel sounds, Soft Extremity Exam: Positive: Other (RIGHT STUMP SITE CLEAN. LEFT LEG IN DRESSING) Skin Exam: Positive: Nl turgor and temperature Assessment /Plan Problems (1) Leukocytosis Status: Acute Problem Text: Pts WBC count not noted to have increased slowly Todays WBC count is 21.6 Even though pt is completely asymptomatic, afebrile, possible reactive leukocytosis Will continue Cefepime and Vanco as per orderes Will discuss with nephro as pt is on PD Will monitor white count and change meds accordingly (2) PVD (peripheral vascular disease) Status: Chronic Problem Text: S/P left BKA Pt yet not cleared by PT Vascular F/U appreciated Dsg changed by dr maharaj today PT in progress DC with wheelchair once all arrangements are made (WHEELCHAIR) A.The beneficiary has a mobility limitation that significantly impairs his ability to participate in one or more mobility-related activities of daily mark ng (MRADLs) such as toileting,feeding.dressing,grooming and bathingin customary lacations in the home. B. The beneficiary's mobility limitations cannot be sufficiently resolved by the use of an appropriately fitted cane or walker. D.Use of manual wheelchair will significantly improve the beneficiary's ability to participate in MRADLs and the beneficiary will use it on a regular basis in the home. F. The beneficiary has sufficient upper extremity function and other physical and mental capabilities needed to safely self-propelthe manual wheelchairthat is provided in the homeduring a typical day. (3) ESRD (end stage renal disease) Status: Chronic Problem Text: PD in [facility] Nephrology F/U appreciated Plan/VTE VTE Prophylaxis Ordered?: Yes VS, I&O, 24H, Fishbone Vital Signs/I&O Vital Signs Date Time Temp Pulse Resp B/P (MAP) Pulse Ox O2 Delivery O2 Flow Rate FiO2 04/11/20 08:55 80 140/64 04/11/20 06:00 97.9 18 96 Room Air I&O- Last 24 Hours up to 6 AM 04/11/20 06:00 Intake Total 55732 ml Output Total 44607 ml Balance -1134 ml Laboratory Data 24H LABS Laboratory Tests 2 04/11/20 05:39: Immature Granulocyte % (Auto) 1.5, Neutrophils (%) (Auto) 79.6H, Lymphocytes (%) (Auto) 9.7L, Monocytes (%) (Auto) 6.3H, Eosinophils (%) (Auto) 2.6, Basophils (%) (Auto) 0.3, Neutrophils # (Auto) 17.2H, Lymphocytes # (Auto) 2.1, Monocytes # (Auto) 1.4H, Eosinophils # (Auto) 0.6H, Basophils # (Auto) 0.1, Nucleated Red Blood Cells % (auto) 0.0, Iron Level 54L, Total Iron Binding Capacity 135L, Transferrin % Saturation 40.0, Ferritin 2456H, Random Vancomycin Level 25.1 CBC/BMP Laboratory Tests 04/11/20 05:39 HARSHIL CROCKER MD Apr 11, 2020 11:12
[2020-04-11 14:00] VITALS: BP 139/58
[2020-04-11 16:45] LABS: APPEARANCE, BODY FLUID CLEAR (CLEAR); PERITONEAL DIALYSATE FL COLOR COLORLESS (COLORLESS); SOURCE, BODY FLUID PERITONEAL DIALYSATE
[2020-04-11] MEDS: MEROPENEM INJ 500 MG in IV 1 EA IV SCH (17:22)
[2020-04-11] MEDS ORDERED: LEVEMIR (INSULIN DETEMIR) 1 UNITS/0.01ML SC ONE (21:00)
[2020-04-11 22:00] VITALS: BP 149/72
[2020-04-11] MEDS: ROSUVASTATIN 10 MG TAB (CRESTOR) PO SCH (22:15)
[2020-04-11] MEDS: LATANOPROST 0.005% OPHTH SOLN 2.5 ML OU SCH (22:22)
[2020-04-12] MEDS: SODIUM CHLORIDE 0.9% INJ 10 ML SYR IV SCH ×2 (05:31→17:30)
[2020-04-12 06:00] VITALS: BP 146/68
[2020-04-12 06:16] LABS: VANCOMYCIN RANDOM 22.4 UG/ML
[2020-04-12 07:58] LABS: HEMATOCRIT 27.9 % (42.0-52.0); HEMOGLOBIN 8.9 g/dl (13.5-17.5); MEAN CORPUSCULAR HEMOGLOBIN 32.7 pg (27.0-33.0); MEAN CORPUSCULAR HGB CONC 31.9 g/dl (32.0-36.5); MEAN CORPUSCULAR VOLUME 102.6 fl (80.0-96.0); PLATELET COUNT, AUTOMATED 432 10^3/uL (150-450); RED BLOOD COUNT 2.72 10^6/uL (4.30-6.10); WHITE BLOOD COUNT 22.7 10^3/uL (4.0-10.0)
[2020-04-12 08:05] LABS: CALCIUM LEVEL 8.8 MG/DL (8.8-10.2); CREATININE FOR GFR 9.36 MG/DL (0.70-1.30); POTASSIUM SERUM 3.2 MEQ/L (3.5-5.1)
[2020-04-12] MEDS: HumaLOG INSULIN (NovoLOG) PER UNIT SC SCH ×4 (08:38→21:00)
[2020-04-12] MEDS: LEVEMIR (INSULIN DETEMIR) 1 UNITS/0.01ML SC SCH ×2 (08:40→21:00)
[2020-04-12] MEDS: HEPARIN SOD (PORCINE) 5000UNITS/ML 1ML VIAL/SYRINGE SC SCH ×2 (08:40→21:41)
[2020-04-12] MEDS: MIRALAX *UNIT DOSE* 17GM PACKET PO SCH (08:40)
[2020-04-12] MEDS: ASPIRIN 81 MG ENTERIC TAB PO SCH (08:40)
[2020-04-12] MEDS: SUCROFERRIC OXYHYDROXIDE 500MG CHEW TAB (VELPHORO) PO SCH ×4 (08:41→17:28)
[2020-04-12] MEDS: LACTOBACILLUS ACIDOPHILUS CAP (BACID) PO SCH (08:47)
[2020-04-12] MEDS: TIMOLOL MALEATE 0.5% OPHTH SOLN 5 ML OU SCH ×2 (08:48→21:31)
[2020-04-12] MEDS: ATROPINE SULFATE 1% OP SOLN 2 ML BTL OS SCH (08:48)
[2020-04-12] MEDS: BRINZOLAMIDE 1 % OPHTH SUSP (AZOPT) 10ML OS SCH ×2 (08:49→21:42)
[2020-04-12] MEDS: BRIMONIDINE 0.15% OPHTH SOLN 5 ML OU SCH ×2 (08:50→21:31)
[2020-04-12] MEDS ORDERED: POTASSIUM CHLORIDE 10 MEQ SR TABLET PO ONE ×2 (11:00→13:00)
--- NOTE | 2020-04-12 12:29 | IPNPDOC ---
Subjective Date Seen The patient was seen on 04/12/20. Subjective Chief Complaint/HPI pt comfortable, at the bedside General: Denies: ROS Unobtainable, Chills, Night Sweats, Fatigue, Malaise, Normal Appetite, Other Symptoms Constitutional: Denies: Chills, Fever, Malaise, Night Sweats, Weakness, Fatigue, Weight Loss, Lethargy, Other Pulmonary: Denies: Dyspnea, Cough, Pleuritic Chest Pain, Other Symptoms Cardiovascular: Denies: Chest Pain, Palpitations, Orthopnea, Paroxysmal Noc. Dyspnea, Edema, Lt Headedness, Other Symptoms Gastrointestinal: Denies: Nausea, Vomiting, Abdominal Pain, Diarrhea, Constipation, Melena, Hematochezia, Other Symptoms Musculoskeletal: Denies: Neck Pain, Back Pain, Shoulder Pain, Arm Pain, Hand Pain, Leg Pain, Foot Pain, Joint Pain, Muscle Pain, Spasms, Other Symptoms Neurological: Denies: Weakness, Numbness, Incoordination, Change in speech, Confusion, Seizures, Other Symptoms Objective Physical Examination Chest Exam: Positive: Clear to auscultation, Normal air movement Heart Exam: Positive: Rate Normal, Regular Rhythm, Normal S1, Normal S2 Abdomen Exam: Positive: Normal bowel sounds, Soft Extremity Exam: Positive: Other (RIGHT STUMP SITE CLEAN. LEFT LEG IN DRESSING) Skin Exam: Positive: Nl turgor and temperature Assessment /Plan Problems (1) Leukocytosis Status: Acute Problem Text: Pts WBC count not noted to have increased slowly Todays WBC count is 22.7 K Even though pt is completely asymptomatic, afebrile, etilogy could be gangerene of his rt hand fingers Cefepime was changed to Merrem yesterday and continue Vanco as per orderes Will request ID consult in am am labs (2) PVD (peripheral vascular disease) Status: Chronic Problem Text: S/P left BKA Pt yet not cleared by PT Vascular F/U appreciated Dsg changed by dr maharaj today PT in progress DC with wheelchair once all arrangements are made (WHEELCHAIR) A.The beneficiary has a mobility limitation that significantly impairs his ability to participate in one or more mobility-related activities of daily living (MRADLs) such as toileting,feeding.dressing,grooming and bathingin customary lacations in the home. B. The beneficiary's mobility limitations cannot be sufficiently resolved by the use of an appropriately fitted cane or walker. D.Use of manual wheelchair will significantly improve the beneficiary's ability to participate in MRADLs and the beneficiary will use it on a regular basis in the home. F. The beneficiary has sufficient upper extremity function and other physical and mental capabilities needed to safely self-propelthe manual wheelchairthat is provided in the homeduring a typical day. (3) ESRD (end stage renal disease) Status: Chronic Problem Text: PD in [facility] Nephrology F/U appreciated Plan/VTE VTE Prophylaxis Ordered?: Yes VS, I&O, 24H, Fishbone Vital Signs/I&O Vital Signs Date Time Temp Pulse Resp B/P (MAP) Pulse Ox O2 Delivery O2 Flow Rate FiO2 04/12/20 08:47 78 138/78 04/12/20 06:00 97.5 18 98 Room Air I&O- Last 24 Hours up to 6 AM 04/12/20 05:59 Intake Total 68518 ml Output Total 05227 ml Balance -1790 ml Laboratory Data 24H LABS Laboratory Tests 2 04/11/20 15:00: Body Fluid Source PERITONEAL DIALYSATE, Body Fluid WBC (Auto) 6, Body Fluid RBC (Auto) < 2, Peritoneal Fluid Color COLORLESS, Peritoneal Fluid Appearance CLEAR 04/12/20 05:30: Anion Gap 10, Glomerular Filtration Rate 6.0L, Calcium Level 8.8, Random Vancomycin Level 22.4 04/12/20 07:26: Nucleated Red Blood Cells % (auto) 0.1H CBC/BMP Laboratory Tests 04/12/20 05:30 04/12/20 07:26 HARSHIL CROCKER MD Apr 12, 2020 12:29
[2020-04-12] MEDS ORDERED: HEPARIN SOD (PORCINE) 5000UNITS/ML 1ML VIAL/SYRINGE PD SCH (12:30)
[2020-04-12 14:00] VITALS: BP 116/59
[2020-04-12] MEDS: MEROPENEM INJ 500 MG in IV 1 EA IV SCH (17:01)
[2020-04-12] MEDS ORDERED: LEVEMIR (INSULIN DETEMIR) 1 UNITS/0.01ML SC ONE (21:15)
[2020-04-12] MEDS: LATANOPROST 0.005% OPHTH SOLN 2.5 ML OU SCH (21:39)
[2020-04-12] MEDS: ROSUVASTATIN 10 MG TAB (CRESTOR) PO SCH (21:40)
[2020-04-12 22:00] VITALS: BP 153/70
[2020-04-13 06:00] VITALS: BP 116/65
[2020-04-13] MEDS: SODIUM CHLORIDE 0.9% INJ 10 ML SYR IV SCH ×2 (06:18→18:03)
[2020-04-13 06:56] LABS: BASO # 0.1 10^3/uL (0.0-0.2); BASO % 0.4 % (0.0-1.0); EOS # 0.6 10^3/uL (0.0-0.5); HEMATOCRIT 29.5 % (42.0-52.0); HEMOGLOBIN 9.3 g/dl (13.5-17.5); LYMPH # 2.2 10^3/uL (1.5-5.0); LYMPH % 11.2 % (24.0-44.0); MEAN CORPUSCULAR HEMOGLOBIN 32.1 pg (27.0-33.0); MEAN CORPUSCULAR HGB CONC 31.5 g/dl (32.0-36.5); MEAN CORPUSCULAR VOLUME 101.7 fl (80.0-96.0); MONO # 1.2 10^3/uL (0.0-0.8); MONO % 6.2 % (0.0-5.0); NEUTROPHILS # 15.4 10^3/uL (1.5-8.5); NEUTROPHILS % 77.8 % (36.0-66.0); PLATELET COUNT, AUTOMATED 460 10^3/uL (150-450); WHITE BLOOD COUNT 19.8 10^3/uL (4.0-10.0)
[2020-04-13 07:32] LABS: ALBUMIN 1.7 GM/DL (3.2-5.2); BILIRUBIN,TOTAL 0.4 MG/DL (0.2-1.0); CALCIUM LEVEL 9.4 MG/DL (8.8-10.2); CREATININE FOR GFR 9.75 MG/DL (0.70-1.30); GLOMERULAR FILTRATION RATE 5.8 (>49); TOTAL PROTEIN 7.3 GM/DL (6.4-8.2)
[2020-04-13] MEDS: ATROPINE SULFATE 1% OP SOLN 2 ML BTL OS SCH (08:17)
[2020-04-13] MEDS: LACTOBACILLUS ACIDOPHILUS CAP (BACID) PO SCH (08:17)
[2020-04-13] MEDS: SUCROFERRIC OXYHYDROXIDE 500MG CHEW TAB (VELPHORO) PO SCH ×3 (08:17→18:00)
[2020-04-13] MEDS: ASPIRIN 81 MG ENTERIC TAB PO SCH (08:17)
[2020-04-13] MEDS: BRINZOLAMIDE 1 % OPHTH SUSP (AZOPT) 10ML OS SCH ×2 (08:17→21:51)
[2020-04-13] MEDS: BRIMONIDINE 0.15% OPHTH SOLN 5 ML OU SCH ×2 (08:17→21:52)
[2020-04-13] MEDS: TIMOLOL MALEATE 0.5% OPHTH SOLN 5 ML OU SCH ×2 (08:17→21:51)
[2020-04-13] MEDS: HEPARIN SOD (PORCINE) 5000UNITS/ML 1ML VIAL/SYRINGE SC SCH ×2 (08:18→21:51)
[2020-04-13] MEDS: HumaLOG INSULIN (NovoLOG) PER UNIT SC SCH ×4 (08:18→21:00)
[2020-04-13] MEDS: LEVEMIR (INSULIN DETEMIR) 1 UNITS/0.01ML SC SCH ×2 (08:18→21:51)
[2020-04-13] MEDS: MIRALAX *UNIT DOSE* 17GM PACKET PO SCH (08:19)
--- NOTE | 2020-04-13 10:59 | IPNPDOC ---
Subjective Date Seen The patient was seen on 04/13/20. Subjective Chief Complaint/HPI pt offers no complaints, wants to go home after ID consult. General: Denies: ROS Unobtainable, Chills, Night Sweats, Fatigue, Malaise, Normal Appetite, Other Symptoms Constitutional: Denies: Chills, Fever, Malaise, Night Sweats, Weakness, Fatigue, Weight Loss, Lethargy, Other Pulmonary: Denies: Dyspnea, Cough, Pleuritic Chest Pain, Other Symptoms Cardiovascular: Denies: Chest Pain, Palpitations, Orthopnea, Paroxysmal Noc. Dyspnea, Edema, Lt Headedness, Other Symptoms Gastrointestinal: Denies: Nausea, Vomiting, Abdominal Pain, Diarrhea, Constipation, Melena, Hematochezia, Other Symptoms Musculoskeletal: Denies: Neck Pain, Back Pain, Shoulder Pain, Arm Pain, Hand Pain, Leg Pain, Foot Pain, Joint Pain, Muscle Pain, Spasms, Other Symptoms Neurological: Denies: Weakness, Numbness, Incoordination, Change in speech, Confusion, Seizures, Other Symptoms Psych: Denies: Mood Normal, Anxiety, Depression, Memory Issues, Thoughts of Self Harm, Anger, Thoughts of Harming Other, Other Psych Objective Physical Examination Chest Exam: Positive: Clear to auscultation, Normal air movement Heart Exam: Positive: Rate Normal, Regular Rhythm, Normal S1, Normal S2 Abdomen Exam: Positive: Normal bowel sounds, Soft Extremity Exam: Positive: Other (gangerene rt) Skin Exam: Positive: Nl turgor and temperature Assessment /Plan Problems (1) Leukocytosis Status: Acute Problem Text: Pts WBC count not noted to have increased slowly WBC today is slightly decreased 19.8 Even though pt is completely asymptomatic, afebrile, etilogy could be gangerene of his rt fingers Cefepime was changed to Merrem yesterday and continue Vanco as per orderes As per nephro, no source of infection from PD Will request ID consult today for further recommendations (2) PVD (peripheral vascular disease) Status: Chronic Problem Text: S/P left BKA Pt yet not cleared by PT Vascular F/U appreciated Dsg changed by dr maharaj today PT in progress DC with wheelchair once all arrangements are made (WHEELCHAIR) A.The beneficiary has a mobility limitation that significantly impairs his ability to participate in one or more mobility-related activities of daily living (MRADLs) such as toileting,feeding.dressing,grooming and bathingin customary lacations in the home. B. The beneficiary's mobility limitations cannot be sufficiently resolved by the use of an appropriately fitted cane or walker. D.Use of manual wheelchair will significantly improve the beneficiary's ability to participate in MRADLs and the beneficiary will use it on a regular basis in the home. F. The beneficiary has sufficient upper extremity function and other physical and mental capabilities needed to safely self-propelthe manual wheelchairthat is provided in the homeduring a typical day. (3) ESRD (end stage renal disease) Status: Chronic Problem Text: PD in [facility] Nephrology F/U appreciated Plan/VTE VTE Prophylaxis Ordered?: Yes VS, I&O, 24H, Fishbone Vital Signs/I&O Vital Signs Date Time Temp Pulse Resp B/P (MAP) Pulse Ox O2 Delivery O2 Flow Rate FiO2 04/13/20 08:21 89 126/70 04/13/20 06:00 98.2 16 100 Room Air I&O- Last 24 Hours up to 6 AM 04/13/20 06:00 Intake Total 58395 ml Output Total 93723 ml Balance 570 ml Laboratory Data 24H LABS Laboratory Tests 2 04/13/20 06:35: Immature Granulocyte % (Auto) 1.4, Neutrophils (%) (Auto) 77.8H, Lymphocytes (%) (Auto) 11.2L, Monocytes (%) (Auto) 6.2H, Eosinophils (%) (Auto) 3.0, Basophils (%) (Auto) 0.4, Neutrophils # (Auto) 15.4H, Lymphocytes # (Auto) 2.2, Monocytes # (Auto) 1.2H, Eosinophils # (Auto) 0.6H, Basophils # (Auto) 0.1, Nucleated Red Blood Cells % (auto) 0.2H, Anion Gap 11, Glomerular Filtration Rate 5.8L, Calcium Level 9.4, Total Bilirubin 0.4, Aspartate Amino Transf (AST/SGOT) 23, Alanine Aminotransferase (ALT/SGPT) 20, Alkaline Phosphatase 444H, Total Protein 7.3, Albumin 1.7L, Albumin/Globulin Ratio 0.3 CBC/BMP Laboratory Tests 04/13/20 06:35 HARSHIL CROCKER MD Apr 13, 2020 10:59
[2020-04-13] MEDS: POTASSIUM CHLORIDE 10 MEQ SR TABLET PO SCH (12:10)
[2020-04-13 14:00] VITALS: BP 129/69
[2020-04-13] MEDS: ROSUVASTATIN 10 MG TAB (CRESTOR) PO SCH (21:50)
[2020-04-13] MEDS: LATANOPROST 0.005% OPHTH SOLN 2.5 ML OU SCH (21:51)
[2020-04-13 22:00] VITALS: BP 128/69
[2020-04-14] VITALS (8 sets, daily range): BP systolic 129–152; BP diastolic 59–91
[2020-04-14] MEDS: SODIUM CHLORIDE 0.9% INJ 10 ML SYR IV SCH ×2 (05:46→17:25)
[2020-04-14 06:44] LABS: ALBUMIN 1.7 GM/DL (3.2-5.2); BILIRUBIN,TOTAL 0.3 MG/DL (0.2-1.0); C REACTIVE PROTEIN QUANTITATIV 9.92 MG/DL (0.00-0.30); CALCIUM LEVEL 9.3 MG/DL (8.8-10.2); CREATININE FOR GFR 9.76 MG/DL (0.70-1.30); GLOMERULAR FILTRATION RATE 5.8 (>49); POTASSIUM SERUM 3.7 MEQ/L (3.5-5.1); TOTAL PROTEIN 6.8 GM/DL (6.4-8.2); VANCOMYCIN RANDOM 19.3 UG/ML
[2020-04-14] MEDS: SUCROFERRIC OXYHYDROXIDE 500MG CHEW TAB (VELPHORO) PO SCH ×4 (08:00→17:25)
[2020-04-14] MEDS: LACTOBACILLUS ACIDOPHILUS CAP (BACID) PO SCH (08:29)
[2020-04-14] MEDS: BISACODYL 10 MG SUPP PR SCH (08:30)
[2020-04-14] MEDS: ASPIRIN 81 MG ENTERIC TAB PO SCH (08:30)
[2020-04-14] MEDS: POTASSIUM CHLORIDE 10 MEQ SR TABLET PO SCH (08:30)
[2020-04-14] MEDS: HEPARIN SOD (PORCINE) 5000UNITS/ML 1ML VIAL/SYRINGE SC SCH ×2 (08:30→20:34)
[2020-04-14] MEDS: LEVEMIR (INSULIN DETEMIR) 1 UNITS/0.01ML SC SCH ×2 (08:31→20:34)
[2020-04-14] MEDS: MIRALAX *UNIT DOSE* 17GM PACKET PO SCH (08:31)
[2020-04-14] MEDS: BRINZOLAMIDE 1 % OPHTH SUSP (AZOPT) 10ML OS SCH ×2 (08:31→20:30)
[2020-04-14] MEDS: HumaLOG INSULIN (NovoLOG) PER UNIT SC SCH ×4 (08:31→20:29)
[2020-04-14] MEDS: BRIMONIDINE 0.15% OPHTH SOLN 5 ML OU SCH ×2 (08:32→20:30)
[2020-04-14] MEDS: ATROPINE SULFATE 1% OP SOLN 2 ML BTL OS SCH (08:32)
[2020-04-14] MEDS: TIMOLOL MALEATE 0.5% OPHTH SOLN 5 ML OU SCH ×2 (08:32→20:30)
--- NOTE | 2020-04-14 10:27 | IPNPDOC ---
Subjective Date Seen The patient was seen on 04/14/20. Subjective Chief Complaint/HPI pt comfortable, wants to go home soon General: Denies: ROS Unobtainable, Chills, Night Sweats, Fatigue, Malaise, Normal Appetite, Other Symptoms Constitutional: Denies: Chills, Fever, Malaise, Night Sweats, Weakness, Fatigue, Weight Loss, Lethargy, Other Cardiovascular: Denies: Chest Pain, Palpitations, Orthopnea, Paroxysmal Noc. Dyspnea, Edema, Lt Headedness, Other Symptoms Gastrointestinal: Denies: Nausea, Vomiting, Abdominal Pain, Diarrhea, Constipation, Melena, Hematochezia, Other Symptoms Genitourinary: Denies: Dysuria, Frequency, Incontinence, Hematuria, Retention, Other Symptoms Musculoskeletal: Denies: Neck Pain, Back Pain, Shoulder Pain, Arm Pain, Hand Pain, Leg Pain, Foot Pain, Joint Pain, Muscle Pain, Spasms, Other Symptoms Neurological: Denies: Weakness, Numbness, Incoordination, Change in speech, Confusion, Seizures, Other Symptoms Objective Physical Examination Chest Exam: Positive: Clear to auscultation, Normal air movement Heart Exam: Positive: Rate Normal, Regular Rhythm, Normal S1, Normal S2 Abdomen Exam: Positive: Normal bowel sounds, Soft Extremity Exam: Positive: Other (gangerene rt) Skin Exam: Positive: Nl turgor and temperature Assessment /Plan Problems (1) Leukocytosis Status: Acute Problem Text: Pts WBC count not noted to have increased slowly WBC today is slightly decreased, todays CBC still pending, will reorder gain Even though pt is completely asymptomatic, afebrile, etilogy could be gangerene of his rt fingers Cefepime was changed to Merrem yesterday and continue Vanco as per orderes As per nephro, no source of infection from PD ID consult done yesterday, official report pending can be Dc home once cleared by ID today (2) PVD (peripheral vascular disease) Status: Chronic Problem Text: S/P left BKA Pt yet not cleared by PT Vascular F/U appreciated Dsg changed by dr maharaj today PT in progress DC with wheelchair once all arrangements are made (WHEELCHAIR) A.The beneficiary has a mobility limitation that significantly impairs his ability to participate in one or more mobility-related activities of daily living (MRADLs) such as toileting,feeding.dressing,grooming and bathingin customary lacations in the home. B. The beneficiary's mobility limitations cannot be sufficiently resolved by the use of an appropriately fitted cane or walker. D.Use of manual wheelchair will significantly improve the beneficiary's ability to participate in MRADLs and the beneficiary will use it on a regular basis in the home. F. The beneficiary has sufficient upper extremity function and other physical and mental capabilities needed to safely self-propelthe manual wheelchairthat is provided in the homeduring a typical day. (3) ESRD (end stage renal disease) Status: Chronic Problem Text: PD in [facility] Nephrology F/U appreciated Plan/VTE VTE Prophylaxis Ordered?: Yes VS, I&O, 24H, Fishbone Vital Signs/I&O Vital Signs Date Time Temp Pulse Resp B/P (MAP) Pulse Ox O2 Delivery O2 Flow Rate FiO2 04/14/20 08:29 79 135/63 04/14/20 06:00 97.9 80 100 Room Air I&O- Last 24 Hours up to 6 AM 04/14/20 06:00 Intake Total 46494 ml Output Total 17226 ml Balance 700 ml Laboratory Data 24H LABS Laboratory Tests 2 04/13/20 16:29: Erythrocyte Sedimentation Rate 126H, C-Reactive Protein, Quantitative 11.40H 04/14/20 06:00: C-Reactive Protein, Quantitative 9.92H, Anion Gap 11, Glomerular Filtration Rate 5.8L, Calcium Level 9.3, Total Bilirubin 0.3, Aspartate Amino Transf (AST/SGOT) 30, Alanine Aminotransferase (ALT/SGPT) 27, Alkaline Phosphatase 457H, Total Protein 6.8, Albumin 1.7L, Albumin/Globulin Ratio 0.3, Random Vancomycin Level 19.3 CBC/BMP Laboratory Tests 04/14/20 06:00 Microbiology Microbiology 04/13/20 Blood Culture, Received Pending HARSHIL CROCKER MD Apr 14, 2020 10:27
[2020-04-14] MEDS ORDERED: PEG1POW PO (11:05)
[2020-04-14] MEDS ORDERED: KLOR10TA76 PO (11:05)
[2020-04-14] MEDS ORDERED: PERCOCET PO (11:05)
[2020-04-14] MEDS ORDERED: VELP5CHW PO (11:05)
[2020-04-14] MEDS ORDERED: SENN18TA PO (11:05)
[2020-04-14] MEDS ORDERED: TIMO0.5S29 OU (11:05)
[2020-04-14 11:37] LABS: HEMATOCRIT 21.7 % (42.0-52.0); MEAN CORPUSCULAR HEMOGLOBIN 32.7 pg (27.0-33.0); MEAN CORPUSCULAR HGB CONC 31.3 g/dl (32.0-36.5); MEAN CORPUSCULAR VOLUME 104.3 fl (80.0-96.0); PLATELET COUNT, AUTOMATED 331 10^3/uL (150-450); RED BLOOD COUNT 2.08 10^6/uL (4.30-6.10); WHITE BLOOD COUNT 14.4 10^3/uL (4.0-10.0)
[2020-04-14 11:46] LABS: HEMOGLOBIN 6.8 g/dl (13.5-17.5)
[2020-04-14 12:18] LABS: BASO # 0.1 10^3/uL (0.0-0.2); BASO % 0.4 % (0.0-1.0); EOS # 0.3 10^3/uL (0.0-0.5); EOS % 1.9 % (0.0-3.0); HEMATOCRIT 25.8 % (42.0-52.0); HEMOGLOBIN 8.2 g/dl (13.5-17.5); LYMPH # 1.3 10^3/uL (1.5-5.0); LYMPH % 7.5 % (24.0-44.0); MEAN CORPUSCULAR HEMOGLOBIN 32.4 pg (27.0-33.0); MEAN CORPUSCULAR HGB CONC 31.8 g/dl (32.0-36.5); MONO # 0.9 10^3/uL (0.0-0.8); MONO % 5.1 % (0.0-5.0); NEUTROPHILS # 14.1 10^3/uL (1.5-8.5); NEUTROPHILS % 83.3 % (36.0-66.0); PLATELET COUNT, AUTOMATED 395 10^3/uL (150-450); RED BLOOD COUNT 2.53 10^6/uL (4.30-6.10); WHITE BLOOD COUNT 16.9 10^3/uL (4.0-10.0)
--- NOTE | 2020-04-14 14:17 | CR ---
DATE OF CONSULTATION: 04/13/2020 Asked to consult by hospitalist for evaluation of leukocytosis in a patient who is admitted with gangrene of the left lower extremity, status post below-knee amputation done by Dr. Andrew. HISTORY OF PRESENT ILLNESS: Mr. Lawson is a pleasant 64-year-old gentleman with a history of end stage renal disease, on peritoneal dialysis, insulin-dependent diabetes. The patient presented to the emergency room with complaint of left lower extremity infection with gangrene. The patient was seen by Dr. Andrew, who did an ankle amputation, guillotine initially, followed by a below-knee amputation on April 08. The patient has been on intravenous (IV) antibiotics since admission with a combination of IV cefepime and vancomycin from April 06-April 10, switched to IV meropenem and vancomycin on April 11. Patient feels well and wants to go home. He denies any fever or chills. No nausea, vomiting, or diarrhea. He has been constipated and has had no bowel movement in 8 days. He has no cough or shortness of breath. No other complaints except for gangrene of his right hand 5th finger and 2nd finger, which are not new. He is scheduled to have amputations of those two fingers done by Dr. Winslow in [place]. Patient was supposed to have the surgery done this week. MEDICAL HISTORY: Significant for: 1. End stage renal disease, on peritoneal dialysis. 2. Peripheral vascular disease. 3. Insulin dependent diabetes. 4. 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 Andrew. 5. Gangrene of three fingers on the right side with amputation done by Dr. Owen. 6. Glaucoma. 7. Vitamin D deficiency. 8. Hypertension. SURGICAL HISTORY: 1, Right below-knee amputation. 2. amputation of three fingers of the left hand, done by Dr. Owen. 3. guillotine amputation at the ankle done by Dr. Andrew last week. 4. Below-knee amputation (BKA) done on 04/07/2020. ALLERGIES: ACETAZOLAMIDE gave him convulsions. FAMILY HISTORY: Non-revealing. SOCIAL HISTORY: He denies smoking, alcohol use, recent travel. He lives with his . MEDICATIONS: - potassium 20 mEq by mouth daily - heparin 1000 units with peritoneal dialysis (PD) every 72 hours - Xalatan one drop both eyes every night - MiraLax one packet by mouth daily - Alphagan 0.15% one drop both eyes twice a day - Timoptic 0.5% one drop both eyes twice a day - Senokot one tablet by mouth every night as needed - probiotics one tablet by mouth daily - Aranesp 200 mcg subcutaneous daily - aspirin 81 mg by mouth daily - Atropine one drop both eyes every night - diltiazem 60 mg by mouth daily - Levemir 65 units subcutaneous daily - Colace 100 mg by mouth twice a day as needed - Levemir 45 units subcutaneous every evening - Azopt one drop left eye (o.s.) twice a day - Crestor 20 mg by mouth every night - Percocet one tablet by mouth every 4 as needed. Last dose was on April 08. - diazepam 5 mg by mouth every 6 as needed - Velphoro 500 mg by mouth with meals - meropenem 500 mg IV every 24 - vancomycin 1 gram IV was given on April 07, 500 mg IV on April 08, and 500 mg IV was given on April 10. Vancomycin trough was 22.4 on April 12. LABORATORY DATA: White count 29.9 on admission, 14.6 on April 08, and today was 19.8. Hemoglobin 9.3, hematocrit 29.5, platelets 460, 77% neutrophils, 11% lymphocytes, 6% monocytes. Sodium 136, potassium 4, chloride 95, bicarbonate 30, BUN 69, creatinine 9.75, glucose 149, calcium 9.4, AST 23, ALT 20, alkaline phosphatase 444, total protein 7.3, albumin 1.7. Ferritin 2456, iron 54, TIBC 135, and iron saturation 40%. Peritoneal fluid had 6 white cells and clear. Blood cultures have not been done. IMAGING DATA: None done. REVIEW OF SYSTEMS: Denies any fever, chills, night sweats, malaise, or fatigue. He is anxious to go home. Denies any rash. Has no cough, shortness of breath, or pleuritic chest pain. No nausea, vomiting, or diarrhea. Admits to constipation. No bowel movement in 8 days. He denies any urinary symptoms but has very minimal urine output with dialysis. PHYSICAL EXAMINATION: Temperature is 98, pulse 90, respirations 20, blood pressure 129/69, oxygen saturation 97%-100% on room air. HEART: Normal S1, S2 with a systolic ejection murmur, 2/6. LUNGS: Clear. No wheezes, rhonchi or rales. ABDOMEN: Soft, obese, nontender. PD catheter clean. Left AV fistula ligation site is clean. Left hand, amputation of three fingers with clean amputation site and no drainage. Right hand has a necrotic 5th finger with dry gangrene and necrosis of the distal phalanx of the right index finger. Absent radial pulse. BACK: No costovertebral angle (CVA) or lumbosacral tenderness. Oropharynx is clear with no lesions, no thrush. Dry mucosa. EXTREMITIES: No clubbing, cyanosis, or edema. He had bilateral BKA. The right stump is completely healed. The left has sutures and ghislaine in place. There was minimal erythema anteriorly at the site of the amputation, which has been lined with a marker but no tenderness or purulence. IMPRESSION: This is a 64-year-old gentleman, who was admitted with gangrene of the left lower extremity, status post below-knee amputation on April 07. Has been on broad-spectrum antibiotics for the past 8 days with resolution of fever, and he is currently asymptomatic except for gangrene of his right hand, the 2nd and 5th fingers, which is chronic and old. His leukocytosis is probably reactive due to inflammation and gangrene of the fingers and probably surgery. At t his point he has had 8 days of broad-spectrum antibiotic. I do not see any evidence of infection. PLAN: Just to be on the safe side, I did order a blood culture to make sure he does not have bacteremia. Erythrocyte sedimentation rate (ESR) and C-reactive protein (CRP) were added. I recommended that his call Dr. Winslow to schedule his amputation of his right hand fingers, as they are probably the source of the leukocytosis, but I do not see any indication for more antibiotics if there is no purulent discharge. Discontinue vancomycin, IV meropenem. Monitor complete blood count (CBC), ESR, CRP tomorrow. [facility]
--- NOTE | 2020-04-14 14:19 | DS.PDOC ---
Discharge Summary General Date of Admission Apr 06, 2020 at 14:10 Date of Discharge 04/15/20 Discharge Summary PROCEDURES PERFORMED DURING STAY: [None]. ADMITTING DIAGNOSES: 1. [gangere LLE]. DISCHARGE DIAGNOSES: 1. [gangerene LLE,S/P left BKA,DM-II,ESRD on PD,Anemia of chronic disease]. COMPLICATIONS/CHIEF COMPLAINT: Wet Gangrene Left Lower Extremity. HISTORY OF PRESENT ILLNESS: [64 y.o M with PMH of DM-II and ESRD on peritoneal dialysis with previous history right BKA presented for surgical managmenbt of left lower extremity infection likely BKA. patient presented to Dr. Andrew earlier today and after subsequent discussions, he was directed to inpatient admission for likely BKA following debridement]. HOSPITAL COURSE: [ PVD (peripheral vascular disease) S/P left BKA pt cleared by PT for DC home pt will F/U with dr Sheldon as out pt in 1-2 weeks DC with wheelchair today, all arrangements are made Leukocytosis Pts WBC count not noted to have increased slowly WBC today is slightly decreased, todays CBC still pending, will reorder gain Even though pt is completely asymptomatic, afebrile, etilogy could be gangerene of his rt fingers Cefepime was changed to Merrem yesterday and continue Vanco as per orderes As per nephro, no source of infection from PD Discussed with Dr Bernal, leukocytosis probably reactive DC anti Bx and pt can be Dc home without any PO anti Bx ESRD (end stage renal disease) PD in progess F/U with Dr Quinteros as out pt. Anemia due to ESRD Pt will be transfused one unit of PRBC today before DC, Hgb prior to transfusion is 8.2 F/U CBC with nephrology]. DISCHARGE MEDICATIONS: Please see below. ALLERGIES: Please see below. PHYSICAL EXAMINATION ON DISCHARGE: VITAL SIGNS: Please see below. GENERAL: [NL] HEENT: [SANTA/EOMI] NECK: [supple] CARDIOVASCULAR EXAMINATION: [s1 s2 reg] RESPIRATORY EXAMINATION: [clear to A&P] ABDOMINAL EXAMINATION: [benign] EXTREMITIES: [Left BKA with dsg] SKIN: [NL] NEUROLOGICAL EXAMINATION: [No deficit] PSYCHIATRIC EXAMINATION: [NL] LABORATORY DATA: Please see below. IMAGING: [None] PROGNOSIS: [good] ACTIVITY: [As tolerated]. DIET: [diabetic diet] DISCHARGE PLAN: [DC home] DISPOSITION: .Home with WC DISCHARGE INSTRUCTIONS: 1. [as per Dc instructions]. ITEMS TO FOLLOWUP ON ON OUTPATIENT: 1. [F/U with Dr peacock in 1-2 weeks]. DISCHARGE CONDITION: [Stable]. TIME SPENT ON DISCHARGE: 41 minutes. Vital Signs/I&Os Vital Signs Date Time Temp Pulse Resp B/P (MAP) Pulse Ox O2 Delivery O2 Flow Rate FiO2 04/14/20 08:29 79 135/63 04/14/20 06:00 97.9 80 100 Room Air I&O- Last 24 Hours up to 6 AM 04/14/20 06:00 Intake Total 46945 ml Output Total 38351 ml Balance 700 ml Laboratory Data Labs 24H Laboratory Tests 2 04/13/20 16:29: Erythrocyte Sedimentation Rate 126H, C-Reactive Protein, Quantitative 11.40H 04/14/20 06:00: C-Reactive Protein, Quantitative 9.92H, Anion Gap 11, Glomerular Filtration Rate 5.8L, Calcium Level 9.3, Total Bilirubin 0.3, Aspartate Amino Transf (AST/SGOT) 30, Alanine Aminotransferase (ALT/SGPT) 27, Alkaline Phosphatase 457H, Total Protein 6.8, Albumin 1.7L, Albumin/Globulin Ratio 0.3, Random Vancomycin Level 19.3 04/14/20 11:17: Nucleated Red Blood Cells % (auto) 0.2H 04/14/20 11:56: Nucleated Red Blood Cells % (auto) 0.1H, Immature Granulocyte % (Auto) 1.8, Neutrophils (%) (Auto) 83.3H, Lymphocytes (%) (Auto) 7.5L, Monocytes (%) (Auto) 5.1H, Eosinophils (%) (Auto) 1.9, Basophils (%) (Auto) 0.4, Neutrophils # (Auto) 14.1H, Lymphocytes # (Auto) 1.3L, Monocytes # (Auto) 0.9H, Eosinophils # (Auto) 0.3, Basophils # (Auto) 0.1 CBC/BMP Laboratory Tests 04/14/20 06:00 04/14/20 11:17 04/14/20 11:56 Microbiology Microbiology 04/13/20 Blood Culture, Received Pending Discharge Medications Scheduled Aspirin (Aspir 81) 81 Mg Tablet., 81 MG PO DAILY, (Reported) Atropine Sulfate (Atropine Sulfate) 1% 2ML Drops, 1 DROP OS QAM, (Reported) Bimatoprost (Lumigan) 50 Drop/2.5 Ml Karla, 1 DROP OU QHS, (Reported) Brimonidine Tartrate/Timolol (Combigan 0.2%-0.5% Eye Drops) 5 Ml Drops, 1 DROP OU BID, (Reported) Brinzolamide (Azopt) 1% 10ML Drops.susp, 1 DROP OS BID, (Reported) Cholecalciferol (Vitamin D3) (Vitamin D3) 10 Mcg Capsule, 400 UNITS PO DAILY, (Reported) Clopidogrel Bisulfate (Clopidogrel) 75 Mg Tablet, 75 MG PO DAILY, (Reported) Diltiazem HCl (Diltiazem HCl) 60 Mg Tablet, 60 MG PO DAILY, (Reported) Insulin Glargine (Lantus) 100 Unit/1 Ml Vial, 65 UNITS SC QAM, (Reported) Insulin Glargine (Lantus) 100 Unit/1 Ml Vial, 45 UNITS SC QPM, (Reported) Insulin Human Lispro (Humalog) 1 Units/0.01 Ml Inj, 1 DOSE SC AC, (Reported) PER SLIDING SCALE Polyethylene Glycol 3350 (Polyethylene Glycol 3350) 17 Gm Powd.pack, 1 PKT PO DAILY Potassium Chloride (Klor-Con M10) 10 Meq Tab.er.prt, 10 MEQ PO DAILY Rosuvastatin Calcium (Rosuvastatin Calcium) 20 Mg Tablet, 20 MG PO QHS, (Reported) Sucroferric Oxyhydroxide (Velphoro) 500 Mg Tab.chew, 500 MG PO BIDWM, (Reported) Sucroferric Oxyhydroxide (Velphoro) 500 Mg Tab.chew, 500 MG PO WM Timolol Maleate (Timolol Maleate) 0.5% 5ML Drops, 1 DROP OU BID Scheduled PRN Docusate Sodium (Stool Softener) 100 Mg Capsule, 100 MG PO DAILY PRN for CONSTIPATION, (Reported) Lactobacillus Combo No.10 (Probiotic) 1 Each Capsule, 1 CAP PO DAILY PRN for DIARRHEA, (Reported) ONLY TAKES WHEN ON ANTIBIOTICS Loratadine (Claritin) 10 Mg Capsule, 10 MG PO DAILY PRN for ALLERGIES, (Reported) Oxycodone/Acetaminophen (Oxycodone-Acetaminophen 5-325) 1 Each Tablet, 1 TAB PO Q4HP PRN for MILD/MODERATE PAIN (PS 1-7) Oxycodone/Acetaminophen (Oxycodone-Acetaminophen 5-325) 1 Each Tablet, 2 TAB PO Q4HP PRN for SEVERE PAIN (PS 8-10) Senna (Senna Lax) 8.6 Mg Tablet, 1 TAB PO QHSP PRN for CONSTIPATION Allergies Coded Allergies: acetazolamide (Verified Adverse Reaction, Severe, CONVULSIONS, 11/19/19) HARSHIL CROCKER MD Apr 14, 2020 14:19
--- NOTE | 2020-04-14 15:09 | IPN ---
DATE: 04/13/2020 SUBJECTIVE: Patient was seen and examined at the bedside today morning. He is afebrile, hemodynamically stable. He denies any issues with peritoneal dialysis. He was started on intraperitoneal heparin for fibrin clots. He denies any more clots at this time. His pain in the left lower extremity is optimized. He continues to be on IV antibiotics and he reports that infectious disease is going to see him today for recommendations about antibiotics. OBJECTIVE: Vital signs: Temperature is 98.2 degrees Fahrenheit, blood pressure 116/65, pulse is 80, respiratory rate of 16, saturating 100% on room air. Intake and output: There is no urine output recorded. Peritoneal dialysis output is 4 liters so far. Weight in the bed scale is 90.9 kg. PHYSICAL EXAMINATION: General: Patient is awake, alert, oriented times three, laying in bed, no apparent distress. Head and neck exam: Extraocular muscles intact. Pupils equally round and reactive to light. Mucous membranes are moist. Neck is supple. There is no jugular venous distension (JVD). Cardiovascular: S1, S2, regular rate. No edema of the bilateral lower extremities. Respiratory: Chest is clear to auscultation bilaterally. Bilateral equal air entry. No rales or rhonchi. Abdomen: Soft, positive bowel sounds, nontender. No organomegaly. He has a left lower quadrant peritoneal dialysis (PD) catheter, exit site is clean. Musculoskeletal: He has a new left below-knee amputation. Site is covered with a dressing and he has a right below-knee amputation as well. He has dry gangrene at the right index finger and previous amputations in both hand fingers because of peripheral vascular disease. Central nervous system (PAPER DELIVERER): No focal deficits. Power is 5/5 in all extremities. LABORATORY REVIEW: CBC showed WBC of 19.8, which is slightly better than yesterday, it was 22.7 yesterday, hemoglobin is 9.3, platelets are 460. BMP showed sodium 136, potassium 4, chloride 95, bicarbonate 30, BUN 69, creatinine 9.7, albumin 1.7. CURRENT INPATIENT MEDICATIONS: Patients medications were all reviewed by myself. There is no significant change in the medications today as compared with yesterday. He continues to be on IV meropenem. ASSESSMENT AND PLAN: 1. End-stage renal disease. Patients dialysis regimen was changed to all 1.5%. He is tolerating the current regimen. Volume status is optimal. 2. Hypokalemia. He was given potassium chloride 40 mEq by mouth times one dose. Potassium is normal now. He has been started on potassium chloride (KCl) 10 mEq by mouth daily. 3. Anemia in end-stage renal disease. Hemoglobin is 9.3 which is improving. Continue current dose of Aranesp 200 mcg subcutaneous once a week. 4. Peripheral vascular disease status post left below-knee amputation for left foot wet gangrene. Patient continues to be on IV antibiotics. He still has mild persistent leukocytosis. Infectious disease is going to evaluate the patient today. 5. Chronic kidney disease-mineral bone disease. Continue current dose of Velphoro with meals. Latest phosphorous level is within the acceptable range. MTDD
[2020-04-14] MEDS: LATANOPROST 0.005% OPHTH SOLN 2.5 ML OU SCH (20:30)
[2020-04-14] MEDS: ROSUVASTATIN 10 MG TAB (CRESTOR) PO SCH (20:34)
[2020-04-14 21:05] LABS: HEMATOCRIT 30.7 % (42.0-52.0); MEAN CORPUSCULAR HEMOGLOBIN 32.9 pg (27.0-33.0); MEAN CORPUSCULAR HGB CONC 32.6 g/dl (32.0-36.5); PLATELET COUNT, AUTOMATED 418 10^3/uL (150-450); RED BLOOD COUNT 3.04 10^6/uL (4.30-6.10)
[2020-04-15] MEDS: SODIUM CHLORIDE 0.9% INJ 10 ML SYR IV SCH (05:59)
[2020-04-15 06:00] VITALS: BP 141/62
[2020-04-15] MEDS: SUCROFERRIC OXYHYDROXIDE 500MG CHEW TAB (VELPHORO) PO SCH (08:00)
[2020-04-15] MEDS ORDERED: VANCOMYCIN HCL 500 MG in D5W MINI-BAG PLUS 100 ML IV ONE (08:00)
[2020-04-15] MEDS: MIRALAX *UNIT DOSE* 17GM PACKET PO SCH (08:55)
[2020-04-15] MEDS: BISACODYL 10 MG SUPP PR SCH (08:55)
[2020-04-15 08:57] VITALS: BP 145/76
[2020-04-15] MEDS: POTASSIUM CHLORIDE 10 MEQ SR TABLET PO SCH (08:57)
[2020-04-15] MEDS: LACTOBACILLUS ACIDOPHILUS CAP (BACID) PO SCH (08:57)
[2020-04-15] MEDS: ASPIRIN 81 MG ENTERIC TAB PO SCH (08:57)
[2020-04-15] MEDS: HumaLOG INSULIN (NovoLOG) PER UNIT SC SCH (08:58)
[2020-04-15] MEDS: TIMOLOL MALEATE 0.5% OPHTH SOLN 5 ML OU SCH (08:59)
[2020-04-15] MEDS: BRIMONIDINE 0.15% OPHTH SOLN 5 ML OU SCH (08:59)
[2020-04-15] MEDS: LEVEMIR (INSULIN DETEMIR) 1 UNITS/0.01ML SC SCH (08:59)
[2020-04-15] MEDS: HEPARIN SOD (PORCINE) 5000UNITS/ML 1ML VIAL/SYRINGE SC SCH (08:59)
[2020-04-15] MEDS: ATROPINE SULFATE 1% OP SOLN 2 ML BTL OS SCH (09:00)
[2020-04-15] MEDS: BRINZOLAMIDE 1 % OPHTH SUSP (AZOPT) 10ML OS SCH (09:09)
--- NOTE | 2020-04-15 09:42 | IPN ---
DATE: 04/14/2020 SUBJECTIVE: Mr. Lawson is anxious to go home today. He denies any fever or chills. No nausea or vomiting or diarrhea. No abdominal pain. His last dose of Meropenem was on 04/12/2020. Vancomycin trough level was done this morning and was 19.3. Blood culture no growth after 24 hours. LABORATORY DATA: White count 14.4, hemoglobin 6.8, hematocrit 21.7, platelets 331,000. ESR 126. Sodium 135, potassium 3.7, chloride 96, bicarb 28, BUN 75, creatinine 9.76; was 193, calcium 9.3. CRP 11.4. PHYSICAL EXAMINATION: Heart normal S1, S2, systolic ejection murmur 2/6 left upper sternal border. Lungs are clear. No wheezes, rales or rhonchi. Abdomen soft, nontender, no hepatosplenomegaly. Left hand with amputation of three digits; well healed. Right hand has two necrotic fingers including the fifth finger and the index finger, that needed to be amputated. Bilateral below knee amputations; right BKA is completely healed and left BKA has ghislaine in place. Minimal erythema around the suture site with some petechiae, but no increase in redness from yesterday. IMPRESSION: 1. Infected left leg; status post BKA doing well, healing well. Patient finished eight days of I.V. beta-lactam and vancomycin combination, on Meropenem and Zosyn. 2. Necrotic fingers of the right hand: Patient is scheduled for amputation by Dr. Erwin as soon as he is discharged from the hospital, the will be rescheduling that appointment. 3. Leukocytosis: Most likely reactive from gangrene of the right hand fingers. 4. End-stage renal disease on peritoneal dialysis. 5. Anemia: Patient requiring blood transfusion today. PLAN: Discharge patient home today without any antibiotics after he finishes his blood transfusion. ALEXEI
--- NOTE | 2020-04-15 11:22 | IPNPDOC ---
Subjective Date Seen The patient was seen on 04/15/20. Subjective Chief Complaint/HPI pt comfortable, raedy to be DC home today, wheelchair has been arranged. General: Denies: ROS Unobtainable, Chills, Night Sweats, Fatigue, Malaise, Normal Appetite, Other Symptoms Constitutional: Denies: Chills, Fever, Malaise, Night Sweats, Weakness, Fatigue, Weight Loss, Lethargy, Other Pulmonary: Denies: Dyspnea, Cough, Pleuritic Chest Pain, Other Symptoms Cardiovascular: Denies: Chest Pain, Palpitations, Orthopnea, Paroxysmal Noc. Dyspnea, Edema, Lt Headedness, Other Symptoms Gastrointestinal: Denies: Nausea, Vomiting, Abdominal Pain, Diarrhea, Constipation, Melena, Hematochezia, Other Symptoms Musculoskeletal: Denies: Neck Pain, Back Pain, Shoulder Pain, Arm Pain, Hand Pain, Leg Pain, Foot Pain, Joint Pain, Muscle Pain, Spasms, Other Symptoms Neurological: Denies: Weakness, Numbness, Incoordination, Change in speech, Confusion, Seizures, Other Symptoms Objective Physical Examination Chest Exam: Positive: Clear to auscultation, Normal air movement Heart Exam: Positive: Rate Normal, Regular Rhythm, Normal S1, Normal S2 Abdomen Exam: Positive: Normal bowel sounds, Soft Extremity Exam: Positive: Other (gangerene rt) Skin Exam: Positive: Nl turgor and temperature Assessment /Plan Problems (1) PVD (peripheral vascular disease) Status: Chronic Problem Text: S/P left BKA Pt yet not cleared by PT Vascular F/U appreciated Dsg changed by dr maharaj today PT in progress DC pt today (WHEELCHAIR) A.The beneficiary has a mobility limitation that significantly impairs his ability to participate in one or more mobility-related activities of daily living (MRADLs) such as toileting,feeding.dressing,grooming and bathingin customary lacations in the home. B. The beneficiary's mobility limitations cannot be sufficiently resolved by the use of an appropriately fitted cane or walker. D.Use of manual wheelchair will significantly improve the beneficiary's ability to participate in MRADLs and the beneficiary will use it on a regular basis in the home. F. The beneficiary has sufficient upper extremity function and other physical and mental capabilities needed to safely self-propelthe manual wheelchairthat is provided in the homeduring a typical day. (2) Leukocytosis Status: Acute Problem Text: leukocytosis most likely reactive Even though pt is completely asymptomatic, afebrile, etilogy could be gangerene of his rt fingers Anti Bx were DCed As per nephro, no source of infection from PD ID consult appreciated can be Dc home on no Anti Bx as per ID (3) ESRD (end stage renal disease) Status: Chronic Problem Text: PD in progess Nephrology F/U appreciated Plan/VTE VTE Prophylaxis Ordered?: Yes VS, I&O, 24H, Fishbone Vital Signs/I&O Vital Signs Date Time Temp Pulse Resp B/P (MAP) Pulse Ox O2 Delivery O2 Flow Rate FiO2 04/15/20 08:57 80 145/76 04/15/20 06:00 98.5 16 96 Room Air I&O- Last 24 Hours up to 6 AM 04/15/20 05:59 Intake Total 26171 ml Output Total 96927 ml Balance 900 ml Laboratory Data 24H LABS Laboratory Tests 2 04/14/20 11:56: Immature Granulocyte % (Auto) 1.8, Neutrophils (%) (Auto) 83.3H, Lymphocytes (%) (Auto) 7.5L, Monocytes (%) (Auto) 5.1H, Eosinophils (%) (Auto) 1.9, Basophils (%) (Auto) 0.4, Neutrophils # (Auto) 14.1H, Lymphocytes # (Auto) 1.3L, Monocytes # (Auto) 0.9H, Eosinophils # (Auto) 0.3, Basophils # (Auto) 0.1, Nucleated Red Blood Cells % (auto) 0.1H 04/14/20 20:24: Nucleated Red Blood Cells % (auto) 0.2H 04/15/20 06:00: Random Vancomycin Level 14.8 CBC/BMP Laboratory Tests 04/14/20 11:56 04/14/20 20:24 Microbiology Microbiology 04/13/20 Blood Culture - Preliminary, Resulted No growth after 24 hours . All specim... HARSHIL CROCKER MD Apr 15, 2020 11:22
--- NOTE | 2020-04-22 10:16 | CR ---
DATE OF CONSULTATION: 04/06/2020 CONSULTATION REPORT FOR: Hospitalist service. REASON FOR CONSULTATION: To assist in the management of end-stage renal disease. HISTORY OF PRESENT ILLNESS: Mr. Lawson is a 64-year-old gentleman with complicated medical and surgical histories. He has significant peripheral vascular disease status post right lwitv-gka-muec amputation. He has known history of diabetes, hypertension, end-stage renal disease currently on peritoneal dialysis, and history of anemia. He has multiple amputations of his toes and fingers previously. He was admitted by Dr. Andrew today from the office due to left foot infection and possible need for amputation. He was being followed by Dr. Uriarte, however his foot wound deteriorated and a decision for admission and amputation was made today. Patient has been on peritoneal dialysis at home and will need to continue dialysis due to which a nephrology consultation was requested and patient is seen on his bedside this afternoon. PAST MEDICAL AND SURGICAL HISTORY: Significant for: 1. Longstanding diabetes. 2. Hypertension. 3. Hypercholesterolemia. 4. End-stage renal disease. 5. History of congestive heart failure. 6. History of glaucoma. 7. Arteriovenous (AV) fistula surgery and ligation. 8. History of Permacath placement. 9. Peritoneal dialysis catheter placement. 10. Right wblox-vju-bpkb amputation. 11. History of multiple finger amputations on both hands. 12. History of arteriogram bilateral lower extremities. FAMILY HISTORY: Significant for diabetes, lung and brain cancers. PERSONAL AND SOCIAL HISTORY: Patient is and lives with his . He denies any alcohol or drug use. MEDICATIONS: His home medications include: - aspirin 81 mg daily - atropine sulfate eye drops 1% daily in right eye - Lumigan eye drops one drop at bedtime - Combigan eye drops one drop both eyes twice a day - vitamin D 1000 units daily - Cinacalcet 30 mg daily - Plavix 75 mg daily - diltiazem 60 mg twice a day - stool softener 100 mg twice a day - hydralazine 25 mg twice a day - Lantus insulin 65 units in the morning, 45 units in the afternoon - Humalog insulin per sliding scale - levofloxacin, he has been on 75 mg daily for 10 days - losartan 50 mg daily - metronidazole 500 mg every 8 hours for 10 days - Crestor 20 mg daily - Velphoro 500 mg three times a day with meals - multivitamin one tablet daily ALLERGIES: Patient has allergy to ACETAZOLOMIDE. REVIEW OF SYSTEMS: Patient denies any fever or chills. He has ongoing large ulcer on his left foot which has been debrided multiple times by Dr. Uriarte and not healing. He is admitted today for possible amputation of his foot and then abfyo-agq-qwkh amputation. He denies any fever or chills. Ears, nose, and throat are unremarkable. He has history of glaucoma. Cardiovascular system is significant for congestive heart failure which has been well-compensated with dialysis. Respiratory system is negative for hemoptysis or pleuritic type of chest pain. Gastrointestinal (GI) system is negative for nausea, vomiting, or diarrhea. He has been on peritoneal dialysis. Genitourinary () system is negative for dysuria or hematuria. Psychosocial system is negative for anxiety or depression. Neurological system is significant for peripheral neuropathy. He has no stroke. Hematological system is significant for anemia of chronic kidney disease. Endocrine system is significant for secondary hyperparathyroidism in addition to diabetes. Musculoskeletal system is significant for right dvmcc-xmf-qyqs amputation and multiple digit amputations of both hands. He has a large ulcer on his left foot. PHYSICAL EXAMINATION: Temperature 100.7 degrees Fahrenheit, heart rate 60 per minute, and respiratory rate 18 per minute. Blood pressure 142/72 mmHg and oxygen saturation 94%. His head is atraumatic. Pupils are small and equal bilaterally. Sclerae is anicteric. Neck is supple and without jugular venous distention (JVD) or thyroid enlargement. Heart sounds are regular and lung sounds clear to auscultation. Abdomen is soft, full with peritoneal dialysis solution. Peritoneal dialysis catheter is intact. Bowel sounds are normal. Extremities have no cyanosis or clubbing. Multiple digits are surgically absent on both hands. He has right xkhed-len-oxwm amputation and stump is well-healed. His left foot has a foul odor and is wrapped in dressing. Neurologically he is awake, alert, and oriented times three. LABORATORY DATA: WBC count 29.9, hemoglobin 10.3, and hematocrit 32.6. Platelets 368. Sodium 135, potassium 3.8, chloride 95, CO2 31, BUN 60, and creatinine 10.8. Calcium 9.1, AST 60, ALT 87, alkaline phosphatase 602, total protein 6.5, and albumin 1.9. PROBLEMS: 1. End-stage renal disease. Patient has been on peritoneal dialysis at home. We will continue with the same and start with five daily exchanges of 2 liters each. We will use 2.5% dialysis solution. 2. Congestive heart failure. At present, his volume status is very well compensated and we will manage his volume status with peritoneal dialysis. He is not on any diuretic at present. 3. Anemia. His anemia is related to end-stage renal disease and seems to be stable at present. His anemia is likely to get worse with amputation and we will follow complete blood count (CBC) and start Aranesp as needed. 4. Infection diabetic foot left lower extremity. Patient is scheduled for amputation of his foot today. He has received Cefazolin and current now on cefepime 1 gram every 24 hours which is appropriate. He is also being given vancomycin 1 gram one dose today. If needed, we can continue with vancomycin with end-stage renal disease dosing. Thank you for involving me in the care of Mr. Lawson. I will follow him along with you. MTDD
--- NOTE | 2020-05-08 08:40 | REP ---
PICC LINE INSERTION WITH DAJUAN The procedure was performed under the direct supervision of Dr. Bhandari. The risks and benefits of the procedure were explained to the patient and informed consent was obtained. The right basilic vein was localized using ultrasound guidance. The skin was prepped and draped in a sterile fashion. A 1% Lidocaine was used as a local anesthetic. Using ultrasound guidance, the basilic vein was cannulated and a 0.018 guidewire was inserted and advanced to the SVC using fluoroscopic guidance. The needle was removed and a 4.5 Salvadorean dilator and Peel-Away sheath was inserted over the guidewire. A 4.5 Salvadorean single-lumen catheter was cut to a length of 43 cm. The dilator was removed and the catheter was inserted over the guidewire with the tip ending in the SVC. The Peel-Away sheath was removed, and the catheter was flushed with heparinized saline as per hospital protocol. The catheter was affixed to the skin and a sterile dressing was applied. The patient tolerated the procedure well and there were no immediate complications. 0.2 minutes of fluoroscopy time was utilized for this procedure. ALEXEI
--- NOTE | 2020-05-23 07:52 | IPN ---
DATE: 04/08/2020 SUBJECTIVE: Mr. Lawson is seen this morning at his bedside. He is feeling well and reports that he is going to have his below the knee amputation on left leg completed later today. He denies any dyspnea, chest pain, nausea or vomiting. His peritoneal dialysis has been functioning very well. PHYSICAL EXAMINATION: Temperature 98.1 degrees Fahrenheit, heart rate 82 per minute, respiratory rate 16 per minute, blood pressure 134/58 mmHg and oxygen saturation 98% on room air. Head is atraumatic. Neck is supple and JVD not abnormally elevated. There is no oral thrush or ulcers. Heart sounds are regular. Lungs are clear to auscultation. Abdomen is soft, nontender and bowel sounds are normal Extremities have no cyanosis or clubbing. Multiple digits are surgically absent of both hands. He had previously right below the knee amputation and recently left above the ankle amputation. LABORATORY DATA: Todays labs: WBC 14.6, hemoglobin 9.0, hematocrit 28.5, platelets 366,000. Sodium 139, potassium 3.6, CO2 30, BUN 70, creatinine 10.3. AST 69, ALT 98, alkaline phosphatase 570. Serum albumin 1.6. PROBLEMS: 1. End-stage renal disease: The patient continues with peritoneal dialysis with five exchanges per day and will continue with current prescription. He does not wish to go to acute rehab and will continue with peritoneal dialysis even after his below the knee amputation. 2. Anemia: His anemia is slightly worse. Aranesp 200 mcg has already been ordered for today, and we will continue to monitor closely. At this point, there is no emergent need for dialysis or transfusion. 3. Peripheral vascular disease; status post left above the ankle amputation: Patient is going to have a left below the knee amputation completed later today. He is being followed by Dr. Andrew. ALEXEI
--- NOTE | 2020-05-23 07:53 | IPN ---
DATE: 04/07/2020 SUBJECTIVE: Mr. Lawson is seen this morning at his bedside. He just had dressing change done on his left leg stump by Dr. Andrew. He had amputation of his left foot done yesterday due to infection. Dr. Andrew is planning to do and complete a left below the knee amputation over the next couple of days. Patient denies any dyspnea, chest pain, nausea or vomiting. He has no fever or chills at present. His peritoneal dialysis has been functioning very well, other than small amount of fibrin reported by the nursing staff. PHYSICAL EXAMINATION: Temperature 98.4 degrees Fahrenheit, heart rate 84 per minute, respiratory rate 16 per minute, blood pressure 136/56 mmHg and oxygen saturation 93% on room air. Head is atraumatic. There is no oral thrush or ulcers. Neck supple and without JVD or thyroid enlargement. Trachea is midline. There are no abnormal lymph nodes. Heart sounds are regular. Lungs are clear to auscultation. Abdomen is soft, nontender and distended with peritoneal dialysis fluid. Peritoneal catheter is intact. Extremities have no cyanosis or clubbing. Multiple digits of both hands are surgically absent. He previously had a right below the knee amputation and now had a left foot amputation just above the ankle. Stump is now wrapped in dressing. Neurologically he is awake, alert and at his baseline mentation. LABORATORY DATA: Todays labs: Sodium 135, potassium 3.8, CO2 25, BUN 72, creatinine 10.4, glucose 289 and calcium 8.5. PROBLEMS: 1. End-stage renal disease: The patient is on peritoneal dialysis with five exchanges per day. His electrolytes are reasonable and he seems well dialyzed. Will continue with current prescription. He did have some fibrin and we will add 1,000 units of Heparin in the peritoneal dialysis bag. 2. Anemia: His anemia is related to end-stage renal disease and chronic infection in his left foot. He already had an amputation of his foot done and plan is for completion of below the knee amputation in the next couple of days. His CBC should be repeated. I will give him a dose of Aranesp 200 mcg in anticipation for further blood loss and worsening anemia. 3. Hypertension: At present blood pressure seems to be well controlled and no changes are being made in his antihypertensive medications. 4. Peripheral vascular disease with gangrenous left foot: Patient already had his left foot amputation done and he is going to have left below the knee amputation over the next couple of days. Plan remains as per Dr. Andrew. [facility]ALTH[facility]
--- NOTE | 2020-05-23 07:55 | IPN ---
DATE: 04/09/2020 SUBJECTIVE: Mr. Lawson is seen this morning at his bedside. He underwent completion of left below the knee amputation yesterday and did very well. He denies any fever or chills this morning. He feels some phantom pain. He denies nausea, vomiting, dyspnea or chest pain. His peritoneal dialysis has been functioning very well. PHYSICAL EXAMINATION: Temperature 98.7 degrees Fahrenheit, heart rate 90 per minute, respiratory rate 18 per minute, blood pressure 135/60 mmHg and oxygen saturation 97% on room air. Head is atraumatic. Neck veins are difficult to be assessed. Heart sounds are regular. Lungs are clear to auscultation. Abdomen is protuberant, distended with peritoneal dialysis fluid and nontender. Peritoneal catheter is intact. Extremities without any cyanosis or clubbing. Multiple digits of both hands are surgically absent. Now, he had left below the knee amputation with a prior right below the knee amputation. Neurologically, patient is awake and at his baseline mentation without a focal deficit. LABORATORY DATA: Todays labs: WBC 15.4, hemoglobin 8.6, hematocrit 28.2. Sodium 135, potassium 4.2, CO2 26, BUN 75, creatinine 10.2. PROBLEMS: 1. End-stage renal disease: Patient remains on peritoneal dialysis and working well with five exchanges per day. He is very well dialyzed at present. 2. Hypertension: Blood pressure is very well controlled on current medications and no changes are being made today. 3. Anemia: He did have worsening of anemia following his surgery, and we have already started Aranesp 200 mcg once a week, he has received his first dose yesterday. 4. Peripheral vascular disease: Status post left below the knee amputation due to foot gangrene. Patient is doing well and remains on Cefepime 1 gram every 24 hours. He is being followed by vascular surgery. ALEXEI
== END 2020-04-15 11:23 | disposition home or self-care (01) | DRG 239 ==
LOC: M MSPAV 14:10
PROVIDERS: ADMIT Internal Medicine; ATTEND Internal Medicine
PROC: 0Y6J0Z3 Detachment at Left Lower Leg, Low, Open Approach (ICD-10-PCS; principal; 2020-04-06 14:18)
PROC: 0Y6J0Z2 Detachment at Left Lower Leg, Mid, Open Approach (ICD-10-PCS; 2020-04-08)
PROC: 30233N1 Transfusion of Nonautologous Red Blood Cells into Peripheral Vein, Percutaneous Approach (ICD-10-PCS; 2020-04-14)
DX: E11.52 Type 2 diabetes mellitus with diabetic peripheral angiopathy with gangrene (principal); N18.6 End stage renal disease; I13.2 Hypertensive heart and chronic kidney disease with heart failure and with stage 5 chronic kidney disease, or end stage renal disease; E11.22 Type 2 diabetes mellitus with diabetic chronic kidney disease; I50.9 Heart failure, unspecified; D63.1 Anemia in chronic kidney disease; Z79.82 Long term (current) use of aspirin; Z79.899 Other long term (current) drug therapy; Z79.4 Long term (current) use of insulin; Z88.8 Allergy status to other drugs, medicaments and biological substances; E78.00 Pure hypercholesterolemia, unspecified; D72.829 Elevated white blood cell count, unspecified

== ENCOUNTER → 2020-07-31 | Outpatient (REF) | payer MEDICARE ==
[~2020-07-31] MED LIST changes: +D3400CAP PO; +KLOR10TA76 PO; +PEG1POW PO; +PERCOCET PO; +SENN18TA PO; +TIMO0.5S29 OU
== END ==
LOC: M LAB REF 18:56
PROVIDERS: ATTEND Nurse Practitioner Family
DX: Z20.828 Contact with and (suspected) exposure to other viral communicable diseases (principal)

== ENCOUNTER 2022-08-25 13:45 | Inpatient (IN) | payer MEDICARE ==
[~2022-08-25 13:45] MED LIST changes: +ASPI-569 PO; -ASPI81TAEC PO; -AZOP0.2S OS; +AZOP0.2S OU; -BENA40TA5 PO; +BENA40TA84 PO; -D31000TA2 PO; -DOCU-129 PO; +DOCU-153 PO; -DOXY-350 PO; +DOXY-444 PO; -DOXY100C PO; +DOXY100C3 PO; -KLOR10TA76 PO; +LOSA100T45 PO; -LOSA100T50 PO; +LOSA25TA13 PO; -LOSA25TA14 PO; +LOSA50TA28 PO; -LOSA50TA88 PO; -PEG1POW PO; +POLY17PO18 PO; +POTA-136 PO; +VITA100093 PO
[2022-08-25] MEDS ORDERED: OMEP10CASR PO (14:11)
[2022-08-25] MEDS ORDERED: DRIS50003 PO (14:11)
[2022-08-25] MEDS ORDERED: MIRC30SO IJ (14:11)
[2022-08-25] MEDS ORDERED: MUPI30CR TOP (14:11)
[2022-08-25] MEDS ORDERED: LOSA50TA28 PO (14:11)
[2022-08-25] MEDS ORDERED: RENATAB5 PO (14:11)
[2022-08-25] MEDS ORDERED: PREDOPD OS (14:11)
[2022-08-25] MEDS ORDERED: CINA30TA4 PO (14:11)
[2022-08-25 14:29] LABS: BASO # 0.1 10^3/uL (0.0-0.2); BASO % 0.6 % (0.0-1.0); EOS # 0.3 10^3/uL (0.0-0.5); EOS % 2.5 % (0.0-3.0); HEMATOCRIT 23.5 % (42.0-52.0); HEMOGLOBIN 7.9 g/dl (13.5-17.5); LYMPH # 1.5 10^3/uL (1.5-5.0); LYMPH % 13.3 % (24.0-44.0); MEAN CORPUSCULAR HEMOGLOBIN 35.6 pg (27.0-33.0); MEAN CORPUSCULAR HGB CONC 33.6 g/dl (32.0-36.5); MEAN CORPUSCULAR VOLUME 105.9 fl (80.0-96.0); MONO % 8.2 % (2.0-8.0); NEUTROPHILS # 8.7 10^3/uL (1.5-8.5); NEUTROPHILS % 74.8 % (36.0-66.0); PLATELET COUNT, AUTOMATED 245 10^3/uL (150-450); RED BLOOD COUNT 2.22 10^6/uL (4.30-6.10); WHITE BLOOD COUNT 11.6 10^3/uL (4.0-10.0)
[2022-08-25] MEDS ORDERED: ACETAMINOPHEN 500 MG TAB PO ONE (14:45)
[2022-08-25 14:49] LABS: INR 1.03; PROTHROMBIN TIME 13.7 SECONDS (12.5-14.5)
[2022-08-25 14:58] LABS: CALCIUM LEVEL 8.2 MG/DL (8.3-10.6); CREATININE FOR GFR 8.83 MG/DL (0.70-1.30); GLOMERULAR FILTRATION RATE 6.4 (>49); POTASSIUM SERUM 3.9 MMOL/L (3.5-5.1)
[2022-08-25] MEDS ORDERED: GLUCAGON INJ 1MG VIAL SC PRN (18:00)
[2022-08-25] MEDS ORDERED: DEXTROSE 50% 50ML SYRINGE IV PRN (18:00)
[2022-08-25] MEDS ORDERED: GLUCOSE 4GM CHEW TABLET PO PRN (18:00)
[2022-08-25 18:42] LABS: RSV AMPLIFICATION NEGATIVE (NEGATIVE)
[2022-08-25] MEDS ORDERED: ASPI81TA26 PO (18:48)
[2022-08-25] MEDS ORDERED: LANTINJ4 SC (18:48)
[2022-08-25] MEDS ORDERED: VELP5CHW PO (18:48)
[2022-08-25] MEDS ORDERED: CEPH500C PO (18:48)
[2022-08-25] MEDS ORDERED: HOME MED LIST COMPLETE! XX SCH (18:55)
[2022-08-25 19:34] LABS: IRON (FE) 138 UG/DL (65-175); PERCENT SATURATION 75.8 % (19.7-50.0); TOTAL IRON BINDING CAPACITY 182 UG/DL (250-425)
[2022-08-25 19:37] LABS: VITAMIN B12 LEVEL 1253 PG/ML (211-911)
[2022-08-25 19:38] LABS: FOLATE > 24.00 NG/ML (>5.4)
[2022-08-25 19:48] LABS: HEMATOCRIT 23.3 % (42.0-52.0); HEMOGLOBIN 7.9 g/dl (13.5-17.5)
[2022-08-25 19:58] LABS: FERRITIN 1770.6 NG/ML (10.5-307.3)
[2022-08-25] MEDS ORDERED: DOCUSATE SODIUM 100MG CAPSULE PO PRN (20:15)
[2022-08-25 20:45] VITALS: BP 121/57
[2022-08-25] MEDS ORDERED: TIMOLOL XE GFS 0.5% OPHTH 5 ML OU SCH (21:00)
[2022-08-25] MEDS: BRIMONIDINE 0.1% OPHTH SOLN 5ML OU SCH (21:00)
[2022-08-25] MEDS: prednisoLONE ACET 1% OPHTH SUSP 5ML OS SCH (21:00)
[2022-08-25] MEDS ORDERED: BRINZOLAMIDE 1% OPHTH SUSP (AZOPT) 10ML OU SCH (21:00)
[2022-08-25] MEDS: BRINZOLAMIDE 1% OPHTH SUSP (AZOPT) 10ML OU SCH (21:00)
[2022-08-25] MEDS ORDERED: ROSUVASTATIN 10 MG TAB (CRESTOR) PO SCH (21:00)
[2022-08-25] MEDS ORDERED: INSULIN LISPRO (NovoLOG) PER UNIT SC SCH (21:00)
[2022-08-25] MEDS: CEPHALEXIN 500 MG CAP PO SCH (22:31)
[2022-08-25] MEDS: levETIRAcetam 250MG TABLET (KEPPRA) PO SCH (22:31)
[2022-08-26] VITALS (11 sets, daily range): BP systolic 102–155; BP diastolic 54–81
[2022-08-26 05:44] LABS: HEMATOCRIT 22.1 % (42.0-52.0); HEMOGLOBIN 7.2 g/dl (13.5-17.5); MEAN CORPUSCULAR HEMOGLOBIN 34.6 pg (27.0-33.0); MEAN CORPUSCULAR HGB CONC 32.6 g/dl (32.0-36.5); MEAN CORPUSCULAR VOLUME 106.3 fl (80.0-96.0); PLATELET COUNT, AUTOMATED 224 10^3/uL (150-450); RED BLOOD COUNT 2.08 10^6/uL (4.30-6.10); WHITE BLOOD COUNT 11.6 10^3/uL (4.0-10.0)
[2022-08-26] MEDS: HEPARIN SOD (PORCINE) 5000UNITS/ML 1ML VIAL/SYRINGE SQ SCH ×2 (06:00→13:45)
[2022-08-26 06:09] LABS: MAGNESIUM LEVEL 2.3 MG/DL (1.8-2.4)
[2022-08-26 06:22] LABS: CALCIUM LEVEL 8.2 MG/DL (8.3-10.6); CREATININE FOR GFR 9.63 MG/DL (0.70-1.30); GLOMERULAR FILTRATION RATE 5.8 (>49); PHOSPHORUS LEVEL 5.6 MG/DL (2.4-5.1); POTASSIUM SERUM 3.7 MMOL/L (3.5-5.1)
[2022-08-26] MEDS: INSULIN LISPRO (NovoLOG) PER UNIT SC SCH ×2 (07:30→13:27)
[2022-08-26] MEDS: SUCROFERRIC OXYHYDROXIDE 500MG CHEW TAB (VELPHORO) PO SCH ×2 (08:36→13:45)
[2022-08-26] MEDS: levETIRAcetam 250MG TABLET (KEPPRA) PO SCH (08:37)
[2022-08-26] MEDS: CEPHALEXIN 500 MG CAP PO SCH ×2 (08:37→13:45)
[2022-08-26] MEDS: prednisoLONE ACET 1% OPHTH SUSP 5ML OS SCH (08:38)
[2022-08-26] MEDS: BRIMONIDINE 0.1% OPHTH SOLN 5ML OU SCH (08:39)
[2022-08-26] MEDS: BRINZOLAMIDE 1% OPHTH SUSP (AZOPT) 10ML OU SCH (08:39)
[2022-08-26] MEDS ORDERED: ATROPINE SULFATE 1% OPHTH SOLN 2ML BTL OS SCH (09:00)
[2022-08-26] MEDS ORDERED: ASPIRIN 81MG ENTERIC TABLET PO SCH (09:00)
[2022-08-26] MEDS ORDERED: CINACALCET 30 MG TAB (SENSIPAR) PO SCH (09:00)
[2022-08-26] MEDS ORDERED: LEVEMIR (INSULIN DETEMIR) 1 UNITS/0.01ML SC SCH ×4 (09:00→21:00)
[2022-08-26] MEDS ORDERED: OMEPRAZOLE 20MG CAP PO SCH (09:00)
[2022-08-26] MEDS ORDERED: DARBEPOETIN 100MCG/0.5ML *NON-DIALYSIS* SYRINGE SC ONE (12:00)
[2022-08-26] MEDS ORDERED: KEPP250T5 PO (16:21)
[2022-08-26 16:33] LABS: HEMATOCRIT 26.2 % (42.0-52.0); HEMOGLOBIN 8.7 g/dl (13.5-17.5)
== END 2022-08-26 17:32 | disposition home or self-care (01) | DRG 100 ==
LOC: M ED 13:45 → M ED INP 17:33 → M PCU 20:45
PROVIDERS: ADMIT Internal Medicine; ATTEND Internal Medicine
PROC: 30233N1 Transfusion of Nonautologous Red Blood Cells into Peripheral Vein, Percutaneous Approach (ICD-10-PCS; principal; 2022-08-26)
DX: G40.209 Localization-related (focal) (partial) symptomatic epilepsy and epileptic syndromes with complex partial seizures, not intractable, without status epilepticus (principal); N18.6 End stage renal disease; I12.0 Hypertensive chronic kidney disease with stage 5 chronic kidney disease or end stage renal disease; N25.81 Secondary hyperparathyroidism of renal origin; D53.9 Nutritional anemia, unspecified; E11.22 Type 2 diabetes mellitus with diabetic chronic kidney disease; E11.39 Type 2 diabetes mellitus with other diabetic ophthalmic complication; E11.40 Type 2 diabetes mellitus with diabetic neuropathy, unspecified; Z89.611 Acquired absence of right leg above knee; Z89.612 Acquired absence of left leg above knee; R55 Syncope and collapse; Z89.021 Acquired absence of right finger(s); Z89.022 Acquired absence of left finger(s); H40.9 Unspecified glaucoma; D72.829 Elevated white blood cell count, unspecified; Z88.8 Allergy status to other drugs, medicaments and biological substances; Z79.82 Long term (current) use of aspirin; Z79.899 Other long term (current) drug therapy; Z79.4 Long term (current) use of insulin; E78.5 Hyperlipidemia, unspecified; I95.89 Other hypotension; D63.1 Anemia in chronic kidney disease

== ENCOUNTER 2022-12-13 08:27 | Emergency (ER) | payer MEDICARE ==
[~2022-12-13 08:27] MED LIST changes: +ASPI81TA26 PO; -ATRO1OPD OS; -ATRO1OPD OU; +ATRO2DRO4 OS; +ATRO2DRO4 OU; +DRIS50003 PO; +KEPP250T5 PO; -LOSA100T45 PO; +LOSA100T46 PO; +MIRC30SO IJ; +MUPI30CR TOP; +OMEP10CASR PO; +RENATAB5 PO; +TIMO0.5S20 OS; +TIMO0.5S20 OU; -TIMO0.5S29 OS; -TIMO0.5S29 OU
[2022-12-13 09:20] LABS: BASO # 0.1 10^3/uL (0.0-0.2); BASO % 0.6 % (0.0-1.0); EOS # 0.3 10^3/uL (0.0-0.5); EOS % 2.5 % (0.0-3.0); HEMATOCRIT 32.2 % (42.0-52.0); HEMOGLOBIN 10.6 g/dl (13.5-17.5); LYMPH # 1.6 10^3/uL (1.5-5.0); LYMPH % 12.9 % (24.0-44.0); MEAN CORPUSCULAR HEMOGLOBIN 35.1 pg (27.0-33.0); MEAN CORPUSCULAR HGB CONC 32.9 g/dl (32.0-36.5); MEAN CORPUSCULAR VOLUME 106.6 fl (80.0-96.0); MONO # 1.5 10^3/uL (0.0-0.8); MONO % 12.2 % (2.0-8.0); NEUTROPHILS % 71.3 % (36.0-66.0); PLATELET COUNT, AUTOMATED 168 10^3/uL (150-450); RED BLOOD COUNT 3.02 10^6/uL (4.30-6.10); WHITE BLOOD COUNT 12.6 10^3/uL (4.0-10.0)
[2022-12-13] MEDS ORDERED: LOSA25TA13 PO (09:24)
[2022-12-13 09:49] LABS: CK-MB VALUE MASS 13.6 NG/ML (<3.6)
[2022-12-13 09:51] LABS: MB/CK RELATIVE INDEX 9.85 (< OR =4)
[2022-12-13 09:52] LABS: ALBUMIN 2.9 G/DL (3.2-5.2); BILIRUBIN,DIRECT 0.1 MG/DL (<0.4); BILIRUBIN,TOTAL 0.2 MG/DL (0.3-1.2); CALCIUM LEVEL 8.4 MG/DL (8.3-10.6); CREATININE FOR GFR 7.02 MG/DL (0.70-1.30); GLOMERULAR FILTRATION RATE 8.3 (>49); POTASSIUM SERUM 3.8 MMOL/L (3.5-5.1); TOTAL PROTEIN 6.1 G/DL (5.7-8.2)
[2022-12-13 09:53] LABS: THYROID STIMULATING HORMONE 6.739 uIU/ML (0.55-4.78)
[2022-12-13 10:11] LABS: RSV AMPLIFICATION NEGATIVE (NEGATIVE)
[2022-12-13 10:25] LABS: INR 1.04; PROTHROMBIN TIME 13.8 SECONDS (12.5-14.5)
[2022-12-13 10:26] LABS: PARTIAL THROMBOPLASTIN TIME 39.4 SECONDS (24.8-34.2)
[2022-12-13] MEDS ORDERED: HEPA100I26 IP (10:46)
[2022-12-13 11:09] LABS: CK-MB VALUE MASS 10.7 NG/ML (<3.6)
[2022-12-13 11:16] LABS: MB/CK RELATIVE INDEX 8.04 (< OR =4)
[2022-12-13] MEDS ORDERED: ASPIRIN 81MG CHEW TABLET PO ONE (12:35)
[2022-12-13] MEDS ORDERED: HEPARIN DRIP 25,000 UNITS in IV 1 EA IV SCH (13:00)
[2022-12-13] MEDS ORDERED: HEPARIN SOD (PORCINE) 5000UNITS/ML 1ML VIAL/SYRINGE IV ONE (13:00)
[2022-12-13 14:39] VITALS: BP 157/68
== END 2022-12-13 14:39 | disposition short-term general hospital (02) ==
LOC: M ED 08:27 → EDBD 08:27 → M ED 14:39
DX: I21.4 Non-ST elevation (NSTEMI) myocardial infarction (principal); N18.6 End stage renal disease; I49.1 Atrial premature depolarization; I45.10 Unspecified right bundle-branch block; E78.5 Hyperlipidemia, unspecified; E11.9 Type 2 diabetes mellitus without complications; D64.9 Anemia, unspecified; F10.10 Alcohol abuse, uncomplicated; Z86.79 Personal history of other diseases of the circulatory system; Z88.2 Allergy status to sulfonamides; Z79.82 Long term (current) use of aspirin; Z79.4 Long term (current) use of insulin; Z79.811 Long term (current) use of aromatase inhibitors; Z79.899 Other long term (current) drug therapy

== ENCOUNTER → 2023-02-22 | Outpatient (REF) | payer MEDICARE ==
[~2023-02-22] MED LIST changes: +BIMA01SOL OS; -BIMA01SOL OU; +FAMO40TA3 PO; +HEPA100I26 IP; +LEVO50TA5 PO; +METO1TAB32 PO; +NETA2.5D2 OD; -ROSU20TA5 PO; +ROSU20TA61 PO; +SENN-111 PO; -SENN18TA PO; +[UNRECOGNIZED DRUG - CODE] PO
[2023-02-22 18:50] LABS: FREE T4 0.85 NG/DL (0.89-1.76); THYROID STIMULATING HORMONE 2.657 uIU/ML (0.55-4.78)
== END ==
LOC: M LAB REF 17:27
PROVIDERS: ATTEND Internal Medicine Nephrology
DX: E03.9 Hypothyroidism, unspecified (principal)

== ENCOUNTER 2023-02-26 08:08 | Inpatient (IN) | payer MEDICARE ==
[~2023-02-26] VITALS: Ht 179.1 cm; Wt 81.5 kg
[~2023-02-26 08:08] MED LIST changes: -FAMO40TA3 PO; -LEVO50TA5 PO; -METO1TAB32 PO; -NETA2.5D2 OD; -[UNRECOGNIZED DRUG - CODE] PO
[2023-02-26] MEDS ORDERED: NS 1,000 ML IV ONE ×2 (08:30→11:15)
[2023-02-26] MEDS: ATROPINE SULFATE 1% OPHTH SOLN 2ML BTL OS SCH (09:00)
[2023-02-26 09:14] LABS: BASO % 0.2 % (0.0-1.0); EOS # 0.2 10^3/uL (0.0-0.5); EOS % 1.9 % (0.0-3.0); LYMPH # 0.9 10^3/uL (1.5-5.0); LYMPH % 9.8 % (24.0-44.0); MEAN CORPUSCULAR HEMOGLOBIN 36.4 pg (27.0-33.0); MEAN CORPUSCULAR HGB CONC 33.1 g/dl (32.0-36.5); MEAN CORPUSCULAR VOLUME 109.8 fl (80.0-96.0); MONO # 0.6 10^3/uL (0.0-0.8); MONO % 6.8 % (2.0-8.0); NEUTROPHILS # 7.1 10^3/uL (1.5-8.5); NEUTROPHILS % 80.6 % (36.0-66.0); PLATELET COUNT, AUTOMATED 104 10^3/uL (150-450); RED BLOOD COUNT 1.32 10^6/uL (4.30-6.10); WHITE BLOOD COUNT 8.9 10^3/uL (4.0-10.0)
[2023-02-26 09:19] LABS: HEMATOCRIT 14.5 % (42.0-52.0); HEMOGLOBIN 4.8 g/dl (13.5-17.5)
[2023-02-26 10:05] LABS: CALCIUM LEVEL 2.8 MG/DL (8.3-10.6); CREATININE FOR GFR 2.98 MG/DL (0.70-1.30); GLOMERULAR FILTRATION RATE 22.4 (>49); POTASSIUM SERUM 1.3 MMOL/L (3.5-5.1)
[2023-02-26 10:42] LABS: HEMATOCRIT 32.6 % (42.0-52.0); HEMOGLOBIN 11.4 g/dl (13.5-17.5); MEAN CORPUSCULAR HEMOGLOBIN 36.4 pg (27.0-33.0); MEAN CORPUSCULAR VOLUME 104.2 fl (80.0-96.0); RED BLOOD COUNT 3.13 10^6/uL (4.30-6.10)
[2023-02-26 10:43] LABS: PLATELET COUNT, AUTOMATED 214 10^3/uL (150-450)
[2023-02-26 10:59] LABS: CALCIUM LEVEL 8.2 MG/DL (8.3-10.6); CREATININE FOR GFR 6.96 MG/DL (0.70-1.30); GLOMERULAR FILTRATION RATE 8.4 (>49); POTASSIUM SERUM 2.6 MMOL/L (3.5-5.1)
[2023-02-26] MEDS ORDERED: KCL 10MEQ/100ML SWI (KRUN) 10 MEQ in IV 1 EA IV ONE ×2 (11:30→22:00)
[2023-02-26] MEDS ORDERED: POTASSIUM CHLORIDE 10MEQ SR TABLET PO ONE ×2 (11:30→22:00)
[2023-02-26 12:59] LABS: APPEARANCE, BODY FLUID CLEAR (CLEAR); PERITONEAL DIALYSATE FL COLOR COLORLESS (COLORLESS); SOURCE, BODY FLUID PERITONEAL DIALYSATE
[2023-02-26] MEDS ORDERED: MED REC IN PROGRESS XX SCH (13:00)
[2023-02-26] MEDS ORDERED: VANCOMYCIN HCL 1,000 MG, VIAL MATE ADAPTER 1 EACH in D5W 250 ML IV SCH (13:50)
[2023-02-26] MEDS ORDERED: GLUCOSE 4GM CHEW TABLET PO PRN (14:00)
[2023-02-26] MEDS ORDERED: **NOTE PATIENT COMMENT** MISC XX SCH (14:00)
[2023-02-26] MEDS ORDERED: GLUCAGON INJ 1MG VIAL SC PRN (14:00)
[2023-02-26] MEDS ORDERED: DEXTROSE 50% 50ML SYRINGE IV PRN (14:00)
[2023-02-26] MEDS ORDERED: CLOP75TA2 PO (14:06)
[2023-02-26] MEDS ORDERED: [UNRECOGNIZED DRUG - CODE] PO (14:06)
[2023-02-26] MEDS ORDERED: FAMO40TA3 PO (14:06)
[2023-02-26] MEDS ORDERED: LEVO50TA5 PO (14:06)
[2023-02-26] MEDS ORDERED: NETA2.5D2 OD (14:06)
[2023-02-26] MEDS ORDERED: METO1TAB32 PO (14:06)
[2023-02-26] MEDS ORDERED: HOME MED LIST COMPLETE! XX SCH (14:10)
[2023-02-26] MEDS ORDERED: DOCUSATE SODIUM 100MG CAPSULE PO PRN (14:15)
[2023-02-26] MEDS ORDERED: VANCOMYCIN INTERMITTENT/PULSE DOSING BY CLINICAL PHARMACIST PER DOSING PROTOCOL XX SCH (15:15)
[2023-02-26] MEDS: CLOPIDOGREL 75 MG TAB PO SCH (15:20)
[2023-02-26] MEDS: PIPERACILLIN/TAZOBACTAM SOD 4.5 GM in D5W MINI-BAG PLUS 50 ML IV SCH (15:20)
[2023-02-26] MEDS: KCL 20MEQ in NS 1000ML 1,000 ML IV SCH (15:20)
[2023-02-26] MEDS ORDERED: VANCOMYCIN HCL 1,000 MG, VIAL MATE ADAPTER 1 EACH in D5W 250 ML IV ONE (16:00)
[2023-02-26 16:04] LABS: ALBUMIN 2.5 G/DL (3.2-5.2); CALCIUM LEVEL 7.9 MG/DL (8.3-10.6); CREATININE FOR GFR 6.99 MG/DL (0.70-1.30); GLOMERULAR FILTRATION RATE 8.4 (>49); PHOSPHORUS LEVEL 3.2 MG/DL (2.4-5.1)
[2023-02-26 16:15] VITALS: BP 124/60; TEMP 98; O2SAT 98
[2023-02-26] MEDS: INSULIN LISPRO (NovoLOG) PER UNIT SC SCH ×2 (17:30→20:37)
[2023-02-26] MEDS ORDERED: SODIUM CHLORIDE 0.9% 1000ML IV ONE (17:35)
[2023-02-26] MEDS: ASPIRIN 81MG ENTERIC TABLET PO SCH (17:51)
[2023-02-26] MEDS: OMEPRAZOLE 20MG CAP PO SCH (17:51)
[2023-02-26] MEDS: SUCROFERRIC OXYHYDROXIDE 500MG CHEW TAB (VELPHORO) PO SCH (18:40)
[2023-02-26 19:50] LABS: HEMATOCRIT 30.3 % (42.0-52.0); HEMOGLOBIN 10.5 g/dl (13.5-17.5); MEAN CORPUSCULAR HGB CONC 34.7 g/dl (32.0-36.5); MEAN CORPUSCULAR VOLUME 103.8 fl (80.0-96.0); PLATELET COUNT, AUTOMATED 201 10^3/uL (150-450); RED BLOOD COUNT 2.92 10^6/uL (4.30-6.10); WHITE BLOOD COUNT 20.5 10^3/uL (4.0-10.0)
[2023-02-26 19:55] VITALS: BP 118/57; TEMP 97.4; O2SAT 98
[2023-02-26 20:27] LABS: CK-MB VALUE MASS 7.2 NG/ML (<3.6)
[2023-02-26 20:30] LABS: MB/CK RELATIVE INDEX 2.71 (< OR =4)
[2023-02-26 20:34] LABS: ALBUMIN 2.4 G/DL (3.2-5.2); CALCIUM LEVEL 7.7 MG/DL (8.3-10.6); CREATININE FOR GFR 7.06 MG/DL (0.70-1.30); GLOMERULAR FILTRATION RATE 8.3 (>49); PHOSPHORUS LEVEL 2.8 MG/DL (2.4-5.1); POTASSIUM SERUM 2.9 MMOL/L (3.5-5.1)
[2023-02-26] MEDS: ROSUVASTATIN 10 MG TAB (CRESTOR) PO SCH (22:05)
[2023-02-26] MEDS: HEPARIN SOD (PORCINE) 5000UNITS/ML 1ML VIAL/SYRINGE SQ SCH (22:06)
[2023-02-26] MEDS: prednisoLONE ACET 1% OPHTH SUSP 5ML OS SCH (22:06)
[2023-02-26 23:01] VITALS: BP 105/55; TEMP 97.3; O2SAT 97
[2023-02-27 01:48] LABS: CALCIUM LEVEL 7.7 MG/DL (8.3-10.6); CREATININE FOR GFR 6.77 MG/DL (0.70-1.30); GLOMERULAR FILTRATION RATE 8.7 (>49); POTASSIUM SERUM 3.5 MMOL/L (3.5-5.1)
[2023-02-27 03:25] VITALS: BP 113/57; TEMP 97; O2SAT 95
[2023-02-27] MEDS: PIPERACILLIN/TAZOBACTAM SOD 4.5 GM in D5W MINI-BAG PLUS 50 ML IV SCH ×2 (04:00→15:02)
[2023-02-27] MEDS: KCL 20MEQ in NS 1000ML 1,000 ML IV SCH ×3 (04:01→17:12)
[2023-02-27 05:13] LABS: HEMATOCRIT 29.7 % (42.0-52.0); HEMOGLOBIN 10.3 g/dl (13.5-17.5); MEAN CORPUSCULAR HEMOGLOBIN 36.7 pg (27.0-33.0); MEAN CORPUSCULAR HGB CONC 34.7 g/dl (32.0-36.5); MEAN CORPUSCULAR VOLUME 105.7 fl (80.0-96.0); PLATELET COUNT, AUTOMATED 201 10^3/uL (150-450); RED BLOOD COUNT 2.81 10^6/uL (4.30-6.10); WHITE BLOOD COUNT 19.2 10^3/uL (4.0-10.0)
[2023-02-27 05:32] LABS: CK-MB VALUE MASS 7.5 NG/ML (<3.6)
[2023-02-27 05:33] LABS: VANCOMYCIN RANDOM 11.4 UG/ML
[2023-02-27 05:35] LABS: ALBUMIN 2.3 G/DL (3.2-5.2); CALCIUM LEVEL 7.5 MG/DL (8.3-10.6); CREATININE FOR GFR 6.95 MG/DL (0.70-1.30); GLOMERULAR FILTRATION RATE 8.4 (>49); MB/CK RELATIVE INDEX 3.21 (< OR =4); PHOSPHORUS LEVEL 2.8 MG/DL (2.4-5.1); POTASSIUM SERUM 3.7 MMOL/L (3.5-5.1)
[2023-02-27] MEDS: LEVOTHYROXINE 25MCG TABLET (0.025MG) PO SCH (05:51)
[2023-02-27 07:29] VITALS: BP 133/58; TEMP 96.1; O2SAT 98
[2023-02-27] MEDS: INSULIN LISPRO (NovoLOG) PER UNIT SC SCH ×4 (07:30→21:03)
[2023-02-27] MEDS ORDERED: VANCOMYCIN HCL 1,000 MG, VIAL MATE ADAPTER 1 EACH in D5W 250 ML IV ONE (08:00)
[2023-02-27] MEDS: SUCROFERRIC OXYHYDROXIDE 500MG CHEW TAB (VELPHORO) PO SCH ×3 (08:31→17:11)
[2023-02-27] MEDS: CINACALCET 30 MG TAB (SENSIPAR) PO SCH (08:31)
[2023-02-27] MEDS: MIDODRINE 2.5 MG TAB PO SCH ×3 (08:32→17:12)
[2023-02-27] MEDS: ASPIRIN 81MG ENTERIC TABLET PO SCH (08:32)
[2023-02-27] MEDS: CLOPIDOGREL 75 MG TAB PO SCH (08:32)
[2023-02-27] MEDS: HEPARIN SOD (PORCINE) 5000UNITS/ML 1ML VIAL/SYRINGE SQ SCH ×2 (08:32→21:02)
[2023-02-27] MEDS: OMEPRAZOLE 20MG CAP PO SCH (08:32)
[2023-02-27] MEDS: prednisoLONE ACET 1% OPHTH SUSP 5ML OS SCH ×2 (08:33→21:05)
[2023-02-27] MEDS: ATROPINE SULFATE 1% OPHTH SOLN 2ML BTL OS SCH (10:48)
[2023-02-27 12:04] VITALS: BP 127/59; TEMP 97; O2SAT 99
[2023-02-27] MEDS: COMBIGAN OU SCH ×2 (12:55→21:03)
[2023-02-27 13:00] LABS: CK-MB VALUE MASS 6.9 NG/ML (<3.6)
[2023-02-27 13:06] LABS: MB/CK RELATIVE INDEX 3.63 (< OR =4)
[2023-02-27 16:15] VITALS: BP 118/57; TEMP 96.3; O2SAT 97
[2023-02-27 20:00] VITALS: BP 142/68; TEMP 97; O2SAT 97
[2023-02-27] MEDS: ROSUVASTATIN 10 MG TAB (CRESTOR) PO SCH (21:02)
[2023-02-27] MEDS: LUMIGAN 0.01% OS SCH (21:04)
[2023-02-27] MEDS: ROCKLATAN OD SCH (21:05)
[2023-02-27 23:13] VITALS: BP 148/84; TEMP 97.2; O2SAT 96
[2023-02-28] MEDS: PIPERACILLIN/TAZOBACTAM SOD 4.5 GM in D5W MINI-BAG PLUS 50 ML IV SCH ×2 (03:22→15:38)
[2023-02-28] MEDS: KCL 20MEQ in NS 1000ML 1,000 ML IV SCH (03:23)
[2023-02-28 04:06] VITALS: BP 150/67; TEMP 97.2; O2SAT 97
[2023-02-28] MEDS: LEVOTHYROXINE 25MCG TABLET (0.025MG) PO SCH (05:45)
[2023-02-28 07:12] LABS: HEMATOCRIT 32.3 % (42.0-52.0); HEMOGLOBIN 10.9 g/dl (13.5-17.5); MEAN CORPUSCULAR HEMOGLOBIN 36.5 pg (27.0-33.0); MEAN CORPUSCULAR HGB CONC 33.7 g/dl (32.0-36.5); PLATELET COUNT, AUTOMATED 189 10^3/uL (150-450); RED BLOOD COUNT 2.99 10^6/uL (4.30-6.10); WHITE BLOOD COUNT 11.5 10^3/uL (4.0-10.0)
[2023-02-28 07:24] VITALS: BP 174/80; TEMP 96.5; O2SAT 99
[2023-02-28 07:41] LABS: ALBUMIN 2.2 G/DL (3.2-5.2); CALCIUM LEVEL 7.5 MG/DL (8.3-10.6); CREATININE FOR GFR 6.55 MG/DL (0.70-1.30); PHOSPHORUS LEVEL 2.4 MG/DL (2.4-5.1); POTASSIUM SERUM 4.1 MMOL/L (3.5-5.1)
[2023-02-28] MEDS: SUCROFERRIC OXYHYDROXIDE 500MG CHEW TAB (VELPHORO) PO SCH ×3 (07:53→17:19)
[2023-02-28] MEDS: INSULIN LISPRO (NovoLOG) PER UNIT SC SCH ×4 (07:53→23:04)
[2023-02-28] MEDS: ASPIRIN 81MG ENTERIC TABLET PO SCH (07:53)
[2023-02-28] MEDS: HEPARIN SOD (PORCINE) 5000UNITS/ML 1ML VIAL/SYRINGE SQ SCH ×2 (07:53→23:04)
[2023-02-28] MEDS: COMBIGAN OU SCH ×2 (07:54→23:05)
[2023-02-28] MEDS: OMEPRAZOLE 20MG CAP PO SCH (07:54)
[2023-02-28] MEDS: CLOPIDOGREL 75 MG TAB PO SCH (07:54)
[2023-02-28] MEDS: MIDODRINE 2.5 MG TAB PO SCH ×3 (07:58→17:18)
[2023-02-28] MEDS: prednisoLONE ACET 1% OPHTH SUSP 5ML OS SCH ×2 (07:58→23:02)
[2023-02-28 09:06] LABS: C REACTIVE PROTEIN QUANTITATIV 12.4 MG/DL (<1.0)
[2023-02-28] MEDS: METOPROLOL SUCC *XL* 25MG TAB (TopROL *XL*) PO SCH (09:09)
[2023-02-28] MEDS: NYSTATIN 100,000 UNITS/GM TOPICAL PWD 15GM TOP SCH ×2 (09:10→23:06)
[2023-02-28] MEDS: LEVEMIR (INSULIN DETEMIR) 1 UNITS/0.01ML SC SCH ×2 (09:10→23:03)
[2023-02-28] MEDS: ATROPINE SULFATE 1% OPHTH SOLN 2ML BTL OS SCH (09:10)
[2023-02-28 09:19] LABS: PROCALCITONIN 0.76 ng/ml
[2023-02-28] MEDS: DOCUSATE SODIUM 100MG CAPSULE PO SCH ×2 (11:46→23:03)
[2023-02-28 11:48] VITALS: BP 160/82
[2023-02-28 16:33] VITALS: BP 134/78; TEMP 96.4; O2SAT 99
[2023-02-28] MEDS ORDERED: INSULIN LISPRO (NovoLOG) PER UNIT SC ONE (17:05)
[2023-02-28 20:09] VITALS: BP 119/52; TEMP 96.8; O2SAT 98
[2023-02-28] MEDS: ROSUVASTATIN 10 MG TAB (CRESTOR) PO SCH (23:03)
[2023-02-28] MEDS: ROCKLATAN OD SCH (23:06)
[2023-02-28] MEDS: LUMIGAN 0.01% OS SCH (23:06)
[2023-03-01 03:25] VITALS: BP 140/72; TEMP 97.6; O2SAT 96
[2023-03-01] MEDS: PIPERACILLIN/TAZOBACTAM SOD 4.5 GM in D5W MINI-BAG PLUS 50 ML IV SCH (04:26)
[2023-03-01] MEDS: LEVOTHYROXINE 25MCG TABLET (0.025MG) PO SCH (05:55)
[2023-03-01 06:07] LABS: HEMATOCRIT 30.8 % (42.0-52.0); HEMOGLOBIN 10.6 g/dl (13.5-17.5); MEAN CORPUSCULAR HEMOGLOBIN 36.7 pg (27.0-33.0); MEAN CORPUSCULAR HGB CONC 34.4 g/dl (32.0-36.5); MEAN CORPUSCULAR VOLUME 106.6 fl (80.0-96.0); PLATELET COUNT, AUTOMATED 176 10^3/uL (150-450); RED BLOOD COUNT 2.89 10^6/uL (4.30-6.10); WHITE BLOOD COUNT 10.8 10^3/uL (4.0-10.0)
[2023-03-01] MEDS ORDERED: LevoFLOXacin 750 MG TABLET PO ONE (06:10)
[2023-03-01 06:27] LABS: VANCOMYCIN RANDOM 17.7 UG/ML
[2023-03-01 06:28] LABS: ALBUMIN 2.3 G/DL (3.2-5.2); CREATININE FOR GFR 6.59 MG/DL (0.70-1.30); POTASSIUM SERUM 3.6 MMOL/L (3.5-5.1)
[2023-03-01 07:42] VITALS: TEMP 96.6; O2SAT 96
[2023-03-01 07:52] VITALS: BP 140/68
[2023-03-01] MEDS: COMBIGAN OU SCH ×2 (08:58→21:06)
[2023-03-01] MEDS: HEPARIN SOD (PORCINE) 5000UNITS/ML 1ML VIAL/SYRINGE SQ SCH ×2 (09:00→21:01)
[2023-03-01] MEDS: INSULIN LISPRO (NovoLOG) PER UNIT SC SCH ×4 (09:00→21:00)
[2023-03-01] MEDS: CINACALCET 30 MG TAB (SENSIPAR) PO SCH (09:01)
[2023-03-01] MEDS: LEVEMIR (INSULIN DETEMIR) 1 UNITS/0.01ML SC SCH ×2 (09:01→21:00)
[2023-03-01] MEDS: SUCROFERRIC OXYHYDROXIDE 500MG CHEW TAB (VELPHORO) PO SCH ×3 (09:01→17:25)
[2023-03-01] MEDS: NYSTATIN 100,000 UNITS/GM TOPICAL PWD 15GM TOP SCH ×2 (09:02→21:04)
[2023-03-01] MEDS: METOPROLOL SUCC *XL* 25MG TAB (TopROL *XL*) PO SCH (09:02)
[2023-03-01] MEDS: OMEPRAZOLE 20MG CAP PO SCH (09:02)
[2023-03-01] MEDS: DOCUSATE SODIUM 100MG CAPSULE PO SCH ×2 (09:02→21:01)
[2023-03-01] MEDS: ASPIRIN 81MG ENTERIC TABLET PO SCH (09:02)
[2023-03-01] MEDS: CLOPIDOGREL 75 MG TAB PO SCH (09:02)
[2023-03-01] MEDS: ATROPINE SULFATE 1% OPHTH SOLN 2ML BTL OS SCH (09:03)
[2023-03-01] MEDS: prednisoLONE ACET 1% OPHTH SUSP 5ML OS SCH ×2 (09:25→21:04)
[2023-03-01] MEDS: MIRALAX *UNIT DOSE* 17GM PACKET PO SCH (11:37)
[2023-03-01] MEDS ORDERED: POTASSIUM CHLORIDE 10MEQ SR TABLET PO ONE (13:00)
[2023-03-01 20:00] VITALS: BP 138/65; TEMP 97.2; O2SAT 100
[2023-03-01] MEDS: POTASSIUM CHLORIDE 10MEQ SR TABLET PO SCH (21:01)
[2023-03-01] MEDS: ROCKLATAN OD SCH (21:02)
[2023-03-01] MEDS: LUMIGAN 0.01% OS SCH (21:05)
[2023-03-01] MEDS: ROSUVASTATIN 10 MG TAB (CRESTOR) PO SCH (21:19)
[2023-03-02] MEDS: LEVOTHYROXINE 25MCG TABLET (0.025MG) PO SCH (06:06)
[2023-03-02] MEDS: HEPARIN SOD (PORCINE) 5000UNITS/ML 1ML VIAL/SYRINGE SQ SCH ×3 (06:07→21:56)
[2023-03-02 07:53] VITALS: BP 150/84; TEMP 96.9; O2SAT 98
[2023-03-02] MEDS: MIRALAX *UNIT DOSE* 17GM PACKET PO SCH (09:30)
[2023-03-02] MEDS: INSULIN LISPRO (NovoLOG) PER UNIT SC SCH ×4 (09:31→21:56)
[2023-03-02] MEDS: LEVEMIR (INSULIN DETEMIR) 1 UNITS/0.01ML SC SCH ×2 (09:31→21:55)
[2023-03-02] MEDS: CLOPIDOGREL 75 MG TAB PO SCH (09:31)
[2023-03-02] MEDS: METOPROLOL SUCC *XL* 25MG TAB (TopROL *XL*) PO SCH (09:32)
[2023-03-02] MEDS: OMEPRAZOLE 20MG CAP PO SCH (09:32)
[2023-03-02] MEDS: SUCROFERRIC OXYHYDROXIDE 500MG CHEW TAB (VELPHORO) PO SCH ×3 (09:33→18:12)
[2023-03-02] MEDS: DOCUSATE SODIUM 100MG CAPSULE PO SCH ×2 (09:33→21:54)
[2023-03-02] MEDS: POTASSIUM CHLORIDE 10MEQ SR TABLET PO SCH ×2 (09:33→21:55)
[2023-03-02] MEDS: ASPIRIN 81MG ENTERIC TABLET PO SCH (09:33)
[2023-03-02] MEDS: COMBIGAN OU SCH ×2 (09:34→22:00)
[2023-03-02] MEDS: prednisoLONE ACET 1% OPHTH SUSP 5ML OS SCH ×2 (09:35→22:07)
[2023-03-02] MEDS: ATROPINE SULFATE 1% OPHTH SOLN 2ML BTL OS SCH (09:35)
[2023-03-02] MEDS: NYSTATIN 100,000 UNITS/GM TOPICAL PWD 15GM TOP SCH ×2 (09:36→22:02)
[2023-03-02 20:00] VITALS: BP 162/78; TEMP 96.8; O2SAT 97
[2023-03-02] MEDS: ROSUVASTATIN 10 MG TAB (CRESTOR) PO SCH (21:55)
[2023-03-02] MEDS: ROCKLATAN OD SCH (22:02)
[2023-03-02] MEDS: LUMIGAN 0.01% OS SCH (22:05)
[2023-03-02 23:00] VITALS: BP 132/62
[2023-03-03] MEDS: LevoFLOXacin 500 MG TABLET PO SCH (06:20)
[2023-03-03] MEDS: LEVOTHYROXINE 25MCG TABLET (0.025MG) PO SCH (06:20)
[2023-03-03] MEDS: HEPARIN SOD (PORCINE) 5000UNITS/ML 1ML VIAL/SYRINGE SQ SCH ×3 (06:21→20:37)
[2023-03-03 06:27] LABS: HEMATOCRIT 29.6 % (42.0-52.0); HEMOGLOBIN 10.3 g/dl (13.5-17.5); MEAN CORPUSCULAR HEMOGLOBIN 36.3 pg (27.0-33.0); MEAN CORPUSCULAR HGB CONC 34.8 g/dl (32.0-36.5); MEAN CORPUSCULAR VOLUME 104.2 fl (80.0-96.0); PLATELET COUNT, AUTOMATED 148 10^3/uL (150-450); RED BLOOD COUNT 2.84 10^6/uL (4.30-6.10); WHITE BLOOD COUNT 9.4 10^3/uL (4.0-10.0)
[2023-03-03 06:57] LABS: ALBUMIN 2.2 G/DL (3.2-5.2); CALCIUM LEVEL 8.1 MG/DL (8.3-10.6); CREATININE FOR GFR 6.62 MG/DL (0.70-1.30); GLOMERULAR FILTRATION RATE 8.9 (>49); PHOSPHORUS LEVEL 2.6 MG/DL (2.4-5.1); POTASSIUM SERUM 3.6 MMOL/L (3.5-5.1)
[2023-03-03] MEDS: LEVEMIR (INSULIN DETEMIR) 1 UNITS/0.01ML SC SCH ×2 (09:40→20:39)
[2023-03-03] MEDS: SUCROFERRIC OXYHYDROXIDE 500MG CHEW TAB (VELPHORO) PO SCH ×3 (09:41→17:53)
[2023-03-03] MEDS: POTASSIUM CHLORIDE 10MEQ SR TABLET PO SCH ×2 (09:42→20:36)
[2023-03-03] MEDS: DOCUSATE SODIUM 100MG CAPSULE PO SCH ×2 (09:43→20:36)
[2023-03-03] MEDS: CINACALCET 30 MG TAB (SENSIPAR) PO SCH (09:43)
[2023-03-03] MEDS: OMEPRAZOLE 20MG CAP PO SCH (09:43)
[2023-03-03] MEDS: CLOPIDOGREL 75 MG TAB PO SCH (09:43)
[2023-03-03] MEDS: ASPIRIN 81MG ENTERIC TABLET PO SCH (09:43)
[2023-03-03] MEDS: METOPROLOL SUCC *XL* 25MG TAB (TopROL *XL*) PO SCH (09:48)
[2023-03-03] MEDS: NYSTATIN 100,000 UNITS/GM TOPICAL PWD 15GM TOP SCH ×2 (09:48→20:39)
[2023-03-03] MEDS: prednisoLONE ACET 1% OPHTH SUSP 5ML OS SCH ×2 (09:49→20:35)
[2023-03-03] MEDS: ATROPINE SULFATE 1% OPHTH SOLN 2ML BTL OS SCH (09:49)
[2023-03-03] MEDS: COMBIGAN OU SCH ×2 (09:49→20:38)
[2023-03-03] MEDS: MIRALAX *UNIT DOSE* 17GM PACKET PO SCH (09:56)
[2023-03-03] MEDS: INSULIN LISPRO (NovoLOG) PER UNIT SC SCH ×4 (09:58→20:17)
[2023-03-03 12:00] VITALS: BP 131/62; TEMP 96.1; O2SAT 96
[2023-03-03] MEDS: BISACODYL 10MG SUPP PR SCH ×2 (16:16→20:40)
[2023-03-03 20:00] VITALS: BP 186/82; TEMP 96.3; O2SAT 97
[2023-03-03] MEDS: ROSUVASTATIN 10 MG TAB (CRESTOR) PO SCH (20:36)
[2023-03-03] MEDS: ROCKLATAN OD SCH (20:38)
[2023-03-03] MEDS: LUMIGAN 0.01% OS SCH (20:39)
[2023-03-04] MEDS: HEPARIN SOD (PORCINE) 5000UNITS/ML 1ML VIAL/SYRINGE SQ SCH ×3 (06:16→20:45)
[2023-03-04] MEDS: LEVOTHYROXINE 25MCG TABLET (0.025MG) PO SCH (06:16)
[2023-03-04 07:52] VITALS: BP 146/67; TEMP 96; O2SAT 97
[2023-03-04 07:55] LABS: HEMATOCRIT 29.5 % (42.0-52.0); HEMOGLOBIN 10.2 g/dl (13.5-17.5); MEAN CORPUSCULAR HEMOGLOBIN 36.2 pg (27.0-33.0); MEAN CORPUSCULAR HGB CONC 34.6 g/dl (32.0-36.5); MEAN CORPUSCULAR VOLUME 104.6 fl (80.0-96.0); PLATELET COUNT, AUTOMATED 155 10^3/uL (150-450); RED BLOOD COUNT 2.82 10^6/uL (4.30-6.10); WHITE BLOOD COUNT 24.5 10^3/uL (4.0-10.0)
[2023-03-04 08:22] LABS: ALBUMIN 2.3 G/DL (3.2-5.2); CALCIUM LEVEL 8.3 MG/DL (8.3-10.6); CREATININE FOR GFR 6.71 MG/DL (0.70-1.30); GLOMERULAR FILTRATION RATE 8.8 (>49); PHOSPHORUS LEVEL 2.7 MG/DL (2.4-5.1); POTASSIUM SERUM 3.9 MMOL/L (3.5-5.1)
[2023-03-04] MEDS: DOCUSATE SODIUM 100MG CAPSULE PO SCH ×2 (08:57→21:00)
[2023-03-04] MEDS: MIRALAX *UNIT DOSE* 17GM PACKET PO SCH (08:57)
[2023-03-04] MEDS: CLOPIDOGREL 75 MG TAB PO SCH (09:06)
[2023-03-04] MEDS: ASPIRIN 81MG ENTERIC TABLET PO SCH (09:06)
[2023-03-04] MEDS: POTASSIUM CHLORIDE 10MEQ SR TABLET PO SCH ×2 (09:06→20:44)
[2023-03-04] MEDS: OMEPRAZOLE 20MG CAP PO SCH (09:06)
[2023-03-04] MEDS: SUCROFERRIC OXYHYDROXIDE 500MG CHEW TAB (VELPHORO) PO SCH ×3 (09:07→18:07)
[2023-03-04] MEDS: INSULIN LISPRO (NovoLOG) PER UNIT SC SCH ×4 (09:07→21:00)
[2023-03-04] MEDS: LEVEMIR (INSULIN DETEMIR) 1 UNITS/0.01ML SC SCH ×2 (09:07→21:53)
[2023-03-04] MEDS: METOPROLOL SUCC *XL* 25MG TAB (TopROL *XL*) PO SCH (09:08)
[2023-03-04] MEDS: NYSTATIN 100,000 UNITS/GM TOPICAL PWD 15GM TOP SCH ×2 (09:09→20:48)
[2023-03-04] MEDS: prednisoLONE ACET 1% OPHTH SUSP 5ML OS SCH ×2 (09:10→20:49)
[2023-03-04] MEDS: COMBIGAN OU SCH ×2 (09:11→20:47)
[2023-03-04] MEDS: ATROPINE SULFATE 1% OPHTH SOLN 2ML BTL OS SCH (09:11)
[2023-03-04 17:15] VITALS: BP 108/66; TEMP 97.5; O2SAT 97
[2023-03-04] MEDS: ROSUVASTATIN 10 MG TAB (CRESTOR) PO SCH (20:44)
[2023-03-04] MEDS: ROCKLATAN OD SCH (20:46)
[2023-03-04] MEDS: LUMIGAN 0.01% OS SCH (20:47)
[2023-03-04 21:11] VITALS: BP 114/38; TEMP 97.9; O2SAT 95
[2023-03-04 22:48] VITALS: BP 113/80
[2023-03-05] MEDS: LevoFLOXacin 500 MG TABLET PO SCH (05:21)
[2023-03-05] MEDS: LEVOTHYROXINE 25MCG TABLET (0.025MG) PO SCH (05:21)
[2023-03-05] MEDS: HEPARIN SOD (PORCINE) 5000UNITS/ML 1ML VIAL/SYRINGE SQ SCH ×3 (05:21→20:25)
[2023-03-05 06:18] LABS: HEMATOCRIT 28.2 % (42.0-52.0); HEMOGLOBIN 9.8 g/dl (13.5-17.5); MEAN CORPUSCULAR HEMOGLOBIN 36.8 pg (27.0-33.0); MEAN CORPUSCULAR HGB CONC 34.8 g/dl (32.0-36.5); PLATELET COUNT, AUTOMATED 132 10^3/uL (150-450); RED BLOOD COUNT 2.66 10^6/uL (4.30-6.10); WHITE BLOOD COUNT 22.3 10^3/uL (4.0-10.0)
[2023-03-05 06:19] VITALS: BP 111/78; TEMP 97.7; O2SAT 96
[2023-03-05 06:42] LABS: CREATININE FOR GFR 6.48 MG/DL (0.70-1.30); GLOMERULAR FILTRATION RATE 9.2 (>49); PHOSPHORUS LEVEL 2.7 MG/DL (2.4-5.1)
[2023-03-05] MEDS: MIRALAX *UNIT DOSE* 17GM PACKET PO SCH (07:08)
[2023-03-05] MEDS: DOCUSATE SODIUM 100MG CAPSULE PO SCH ×2 (07:08→20:34)
[2023-03-05] MEDS: INSULIN LISPRO (NovoLOG) PER UNIT SC SCH ×4 (07:30→21:00)
[2023-03-05] MEDS: LEVEMIR (INSULIN DETEMIR) 1 UNITS/0.01ML SC SCH ×2 (08:10→20:26)
[2023-03-05] MEDS: CLOPIDOGREL 75 MG TAB PO SCH (08:10)
[2023-03-05] MEDS: OMEPRAZOLE 20MG CAP PO SCH (08:10)
[2023-03-05] MEDS: POTASSIUM CHLORIDE 10MEQ SR TABLET PO SCH ×2 (08:10→20:25)
[2023-03-05] MEDS: SUCROFERRIC OXYHYDROXIDE 500MG CHEW TAB (VELPHORO) PO SCH ×3 (08:10→18:00)
[2023-03-05] MEDS: ASPIRIN 81MG ENTERIC TABLET PO SCH (08:10)
[2023-03-05] MEDS: METOPROLOL SUCC *XL* 25MG TAB (TopROL *XL*) PO SCH (08:11)
[2023-03-05] MEDS: NYSTATIN 100,000 UNITS/GM TOPICAL PWD 15GM TOP SCH ×2 (08:11→20:28)
[2023-03-05] MEDS: prednisoLONE ACET 1% OPHTH SUSP 5ML OS SCH ×2 (08:12→20:28)
[2023-03-05] MEDS: COMBIGAN OU SCH ×2 (08:12→20:29)
[2023-03-05] MEDS: ATROPINE SULFATE 1% OPHTH SOLN 2ML BTL OS SCH (08:12)
[2023-03-05] MEDS: ROSUVASTATIN 10 MG TAB (CRESTOR) PO SCH (20:25)
[2023-03-05] MEDS: ROCKLATAN OD SCH (20:28)
[2023-03-05] MEDS: LUMIGAN 0.01% OS SCH (20:28)
[2023-03-06] MEDS: HEPARIN SOD (PORCINE) 5000UNITS/ML 1ML VIAL/SYRINGE SQ SCH ×3 (05:53→22:04)
[2023-03-06] MEDS: LEVOTHYROXINE 25MCG TABLET (0.025MG) PO SCH (05:53)
[2023-03-06 06:00] VITALS: TEMP 97.3; O2SAT 95
[2023-03-06] MEDS: INSULIN LISPRO (NovoLOG) PER UNIT SC SCH ×4 (07:30→21:00)
[2023-03-06] MEDS: POTASSIUM CHLORIDE 10MEQ SR TABLET PO SCH ×2 (08:58→22:03)
[2023-03-06] MEDS: CLOPIDOGREL 75 MG TAB PO SCH (08:58)
[2023-03-06] MEDS: METOPROLOL SUCC *XL* 25MG TAB (TopROL *XL*) PO SCH (08:58)
[2023-03-06] MEDS: ASPIRIN 81MG ENTERIC TABLET PO SCH (08:58)
[2023-03-06] MEDS: OMEPRAZOLE 20MG CAP PO SCH (08:58)
[2023-03-06] MEDS: CINACALCET 30 MG TAB (SENSIPAR) PO SCH (08:58)
[2023-03-06] MEDS: MIRALAX *UNIT DOSE* 17GM PACKET PO SCH (08:59)
[2023-03-06] MEDS: SUCROFERRIC OXYHYDROXIDE 500MG CHEW TAB (VELPHORO) PO SCH ×3 (08:59→17:39)
[2023-03-06] MEDS: DOCUSATE SODIUM 100MG CAPSULE PO SCH ×2 (08:59→22:05)
[2023-03-06] MEDS: NYSTATIN 100,000 UNITS/GM TOPICAL PWD 15GM TOP SCH ×2 (09:00→22:07)
[2023-03-06] MEDS: LEVEMIR (INSULIN DETEMIR) 1 UNITS/0.01ML SC SCH ×2 (09:00→22:04)
[2023-03-06] MEDS: prednisoLONE ACET 1% OPHTH SUSP 5ML OS SCH ×2 (09:01→22:06)
[2023-03-06] MEDS: COMBIGAN OU SCH ×2 (09:01→22:06)
[2023-03-06] MEDS: ATROPINE SULFATE 1% OPHTH SOLN 2ML BTL OS SCH (09:02)
[2023-03-06] MEDS: ROSUVASTATIN 10 MG TAB (CRESTOR) PO SCH (22:03)
[2023-03-06] MEDS: ROCKLATAN OD SCH (22:05)
[2023-03-06] MEDS: LUMIGAN 0.01% OS SCH (22:06)
[2023-03-07 06:13] VITALS: BP 139/70; TEMP 97.8; O2SAT 96
[2023-03-07] MEDS: LEVOTHYROXINE 25MCG TABLET (0.025MG) PO SCH (06:18)
[2023-03-07] MEDS: HEPARIN SOD (PORCINE) 5000UNITS/ML 1ML VIAL/SYRINGE SQ SCH ×3 (06:19→21:42)
[2023-03-07] MEDS: INSULIN LISPRO (NovoLOG) PER UNIT SC SCH ×4 (07:30→21:00)
[2023-03-07] MEDS: ATROPINE SULFATE 1% OPHTH SOLN 2ML BTL OS SCH (08:35)
[2023-03-07] MEDS: NYSTATIN 100,000 UNITS/GM TOPICAL PWD 15GM TOP SCH ×2 (08:35→21:44)
[2023-03-07] MEDS: CLOPIDOGREL 75 MG TAB PO SCH (08:36)
[2023-03-07] MEDS: OMEPRAZOLE 20MG CAP PO SCH (08:36)
[2023-03-07] MEDS: METOPROLOL SUCC *XL* 25MG TAB (TopROL *XL*) PO SCH (08:36)
[2023-03-07] MEDS: POTASSIUM CHLORIDE 10MEQ SR TABLET PO SCH ×2 (08:36→21:42)
[2023-03-07] MEDS: ASPIRIN 81MG ENTERIC TABLET PO SCH (08:36)
[2023-03-07] MEDS: prednisoLONE ACET 1% OPHTH SUSP 5ML OS SCH ×2 (08:37→21:43)
[2023-03-07] MEDS: COMBIGAN OU SCH ×2 (08:37→21:43)
[2023-03-07] MEDS: SUCROFERRIC OXYHYDROXIDE 500MG CHEW TAB (VELPHORO) PO SCH ×3 (08:43→16:53)
[2023-03-07] MEDS: DOCUSATE SODIUM 100MG CAPSULE PO SCH ×2 (08:43→21:00)
[2023-03-07 09:24] LABS: BASO # 0.1 10^3/uL (0.0-0.2); BASO % 0.4 % (0.0-1.0); EOS # 0.5 10^3/uL (0.0-0.5); EOS % 2.9 % (0.0-3.0); HEMATOCRIT 32.1 % (42.0-52.0); HEMOGLOBIN 10.9 g/dl (13.5-17.5); LYMPH # 1.3 10^3/uL (1.5-5.0); LYMPH % 8.1 % (24.0-44.0); MEAN CORPUSCULAR HEMOGLOBIN 36.1 pg (27.0-33.0); MEAN CORPUSCULAR VOLUME 106.3 fl (80.0-96.0); MONO # 1.3 10^3/uL (0.0-0.8); MONO % 8.2 % (2.0-8.0); NEUTROPHILS # 12.5 10^3/uL (1.5-8.5); NEUTROPHILS % 79.6 % (36.0-66.0); PLATELET COUNT, AUTOMATED 172 10^3/uL (150-450); RED BLOOD COUNT 3.02 10^6/uL (4.30-6.10); WHITE BLOOD COUNT 15.7 10^3/uL (4.0-10.0)
[2023-03-07 09:43] LABS: ERYTHROCYTE SEDIMENTATION RATE 119 mm/hr (0-20)
[2023-03-07 10:01] LABS: PROCALCITONIN 0.72 ng/ml
[2023-03-07 10:06] LABS: C REACTIVE PROTEIN QUANTITATIV 9.7 MG/DL (<1.0)
[2023-03-07] MEDS: LEVEMIR (INSULIN DETEMIR) 1 UNITS/0.01ML SC SCH ×2 (10:07→21:42)
[2023-03-07 10:21] LABS: BILIRUBIN,TOTAL 0.4 MG/DL (0.3-1.2); CALCIUM LEVEL 8.2 MG/DL (8.3-10.6); CREATININE FOR GFR 6.32 MG/DL (0.70-1.30); GLOMERULAR FILTRATION RATE 9.4 (>49); POTASSIUM SERUM 3.7 MMOL/L (3.5-5.1); TOTAL PROTEIN 5.5 G/DL (5.7-8.2)
[2023-03-07] MEDS: DARBEPOETIN 100MCG/0.5ML *NON-DIALYSIS* SYRINGE SC SCH (12:43)
[2023-03-07] MEDS: ROSUVASTATIN 10 MG TAB (CRESTOR) PO SCH (21:41)
[2023-03-07] MEDS: LUMIGAN 0.01% OS SCH (21:43)
[2023-03-07] MEDS: ROCKLATAN OD SCH (21:43)
[2023-03-07] MEDS ORDERED: HEPARIN SOD (PORCINE) 5000UNITS/ML 1ML VIAL/SYRINGE PD SCH (22:00)
[2023-03-08] MEDS: LEVOTHYROXINE 25MCG TABLET (0.025MG) PO SCH (05:30)
[2023-03-08] MEDS: HEPARIN SOD (PORCINE) 5000UNITS/ML 1ML VIAL/SYRINGE SQ SCH ×3 (05:30→20:50)
[2023-03-08 06:00] VITALS: BP 159/72; TEMP 97.7; O2SAT 98
[2023-03-08] MEDS: INSULIN LISPRO (NovoLOG) PER UNIT SC SCH ×4 (07:30→21:00)
[2023-03-08] MEDS: IPRATROPIUM 0.5MG/ALBUTEROL 2.5MG INH SOL UD 3ML (DUONEB) NEB SCH ×4 (08:00→23:30)
[2023-03-08] MEDS: SUCROFERRIC OXYHYDROXIDE 500MG CHEW TAB (VELPHORO) PO SCH ×3 (08:00→19:00)
[2023-03-08 08:18] VITALS: BP 152/75; TEMP 97.2; O2SAT 69
[2023-03-08] MEDS ORDERED: IPRATROPIUM 0.5MG/ALBUTEROL 2.5MG INH SOL UD 3ML (DUONEB) NEB PRN (08:30)
[2023-03-08 08:42] LABS: ABG BASE EXCESS 1.6 (-2.0-2.0); ABG HCO3 26.1 MMOL/L (22.0-26.0); ABG O2 SATURATION 98.5 % (95.0-99.0); ABG PARTIAL PRESSURE CO2 40.9 mmHg (35.0-45.0); ABG PARTIAL PRESSURE O2 122.7 mmHg (75.0-100.0); ABG STANDARD HCO3 25.9 MMOL/L. (22.0-26.0); ABG TOTAL CO2 27.4 MMOL/L (23.0-31.0); ABG pH (ARTERIAL) 7.423 UNITS (7.350-7.450)
[2023-03-08 08:56] LABS: BASO # 0.1 10^3/uL (0.0-0.2); BASO % 0.3 % (0.0-1.0); EOS # 0.3 10^3/uL (0.0-0.5); EOS % 2.1 % (0.0-3.0); HEMATOCRIT 33.8 % (42.0-52.0); HEMOGLOBIN 11.4 g/dl (13.5-17.5); LYMPH # 1.3 10^3/uL (1.5-5.0); LYMPH % 8.2 % (24.0-44.0); MEAN CORPUSCULAR HEMOGLOBIN 36.1 pg (27.0-33.0); MEAN CORPUSCULAR HGB CONC 33.7 g/dl (32.0-36.5); MONO % 10.4 % (2.0-8.0); NEUTROPHILS # 12.8 10^3/uL (1.5-8.5); NEUTROPHILS % 78.2 % (36.0-66.0); PLATELET COUNT, AUTOMATED 190 10^3/uL (150-450); RED BLOOD COUNT 3.16 10^6/uL (4.30-6.10); WHITE BLOOD COUNT 16.4 10^3/uL (4.0-10.0)
[2023-03-08 08:57] VITALS: BP 155/64; TEMP 95.5; O2SAT 96
[2023-03-08] MEDS: DOCUSATE SODIUM 100MG CAPSULE PO SCH ×2 (09:00→20:53)
[2023-03-08 09:18] LABS: ERYTHROCYTE SEDIMENTATION RATE > 130 mm/hr (0-20)
[2023-03-08 09:25] LABS: MONO # 1.7 10^3/uL (0.0-0.8)
[2023-03-08 09:30] LABS: C REACTIVE PROTEIN QUANTITATIV 12.1 MG/DL (<1.0)
[2023-03-08 09:36] LABS: PROCALCITONIN 1.7 ng/ml
[2023-03-08 09:38] LABS: ALBUMIN 2.4 G/DL (3.2-5.2); BILIRUBIN,TOTAL 0.6 MG/DL (0.3-1.2); CALCIUM LEVEL 8.6 MG/DL (8.3-10.6); CREATININE FOR GFR 5.92 MG/DL (0.70-1.30); GLOMERULAR FILTRATION RATE 10.2 (>49); POTASSIUM SERUM 3.8 MMOL/L (3.5-5.1); TOTAL PROTEIN 6.6 G/DL (5.7-8.2)
[2023-03-08] MEDS: ASPIRIN 81MG ENTERIC TABLET PO SCH (11:11)
[2023-03-08] MEDS: LEVEMIR (INSULIN DETEMIR) 1 UNITS/0.01ML SC SCH ×2 (11:11→21:14)
[2023-03-08] MEDS: CLOPIDOGREL 75 MG TAB PO SCH (11:12)
[2023-03-08] MEDS: CINACALCET 30 MG TAB (SENSIPAR) PO SCH (11:12)
[2023-03-08] MEDS: AUGMENTIN 500MG TAB PO SCH ×2 (11:12→21:13)
[2023-03-08] MEDS: POTASSIUM CHLORIDE 10MEQ SR TABLET PO SCH ×2 (11:12→21:13)
[2023-03-08] MEDS: OMEPRAZOLE 20MG CAP PO SCH (11:12)
[2023-03-08] MEDS: NYSTATIN 100,000 UNITS/GM TOPICAL PWD 15GM TOP SCH ×2 (11:13→20:50)
[2023-03-08] MEDS: METOPROLOL SUCC *XL* 25MG TAB (TopROL *XL*) PO SCH (11:13)
[2023-03-08] MEDS: COMBIGAN OU SCH ×2 (11:14→21:02)
[2023-03-08] MEDS: prednisoLONE ACET 1% OPHTH SUSP 5ML OS SCH ×2 (11:14→20:55)
[2023-03-08] MEDS: ATROPINE SULFATE 1% OPHTH SOLN 2ML BTL OS SCH (11:15)
[2023-03-08 12:00] VITALS: BP 154/70; TEMP 97.8; O2SAT 97
[2023-03-08 13:56] LABS: CK-MB VALUE MASS 2.8 NG/ML (<3.6)
[2023-03-08 14:05] LABS: MB/CK RELATIVE INDEX 10.76 (< OR =4)
[2023-03-08 16:00] VITALS: BP_SYST 136; BP_SYST 36; BP_DIAS 61; TEMP 96.5; O2SAT 95
[2023-03-08 20:01] VITALS: BP 125/61; TEMP 96.3; O2SAT 95
[2023-03-08] MEDS: ROSUVASTATIN 10 MG TAB (CRESTOR) PO SCH (20:50)
[2023-03-08] MEDS: ROCKLATAN OD SCH (20:56)
[2023-03-08] MEDS: LUMIGAN 0.01% OS SCH (20:58)
[2023-03-08] MEDS: HEPARIN SOD (PORCINE) 5000UNITS/ML 1ML VIAL/SYRINGE PD SCH (22:15)
[2023-03-09 00:36] VITALS: BP 158/69; TEMP 96.3; O2SAT 96
[2023-03-09] MEDS: IPRATROPIUM 0.5MG/ALBUTEROL 2.5MG INH SOL UD 3ML (DUONEB) NEB SCH ×2 (04:17→08:00)
[2023-03-09 04:29] VITALS: BP 142/84; TEMP 97.2; O2SAT 100
[2023-03-09 05:17] LABS: BASO # 0.1 10^3/uL (0.0-0.2); BASO % 0.5 % (0.0-1.0); EOS # 0.3 10^3/uL (0.0-0.5); EOS % 2.1 % (0.0-3.0); HEMATOCRIT 30.8 % (42.0-52.0); HEMOGLOBIN 10.4 g/dl (13.5-17.5); LYMPH # 1.7 10^3/uL (1.5-5.0); LYMPH % 11.2 % (24.0-44.0); MEAN CORPUSCULAR HEMOGLOBIN 36.2 pg (27.0-33.0); MEAN CORPUSCULAR HGB CONC 33.8 g/dl (32.0-36.5); MEAN CORPUSCULAR VOLUME 107.3 fl (80.0-96.0); MONO % 11.4 % (2.0-8.0); NEUTROPHILS # 11.4 10^3/uL (1.5-8.5); NEUTROPHILS % 73.6 % (36.0-66.0); PLATELET COUNT, AUTOMATED 193 10^3/uL (150-450); RED BLOOD COUNT 2.87 10^6/uL (4.30-6.10); WHITE BLOOD COUNT 15.4 10^3/uL (4.0-10.0)
[2023-03-09 05:26] LABS: MONO # 1.8 10^3/uL (0.0-0.8)
[2023-03-09 05:37] LABS: CK-MB VALUE MASS 2.5 NG/ML (<3.6)
[2023-03-09 05:38] LABS: CALCIUM LEVEL 8.1 MG/DL (8.3-10.6); CREATININE FOR GFR 6.23 MG/DL (0.70-1.30); GLOMERULAR FILTRATION RATE 9.6 (>49); MB/CK RELATIVE INDEX 8.06 (< OR =4); POTASSIUM SERUM 3.7 MMOL/L (3.5-5.1)
[2023-03-09] MEDS: HEPARIN SOD (PORCINE) 5000UNITS/ML 1ML VIAL/SYRINGE SQ SCH ×3 (05:56→22:24)
[2023-03-09] MEDS: LEVOTHYROXINE 25MCG TABLET (0.025MG) PO SCH (05:56)
[2023-03-09 07:52] VITALS: BP 110/53; TEMP 98; O2SAT 94
[2023-03-09] MEDS: LEVEMIR (INSULIN DETEMIR) 1 UNITS/0.01ML SC SCH ×2 (08:45→22:24)
[2023-03-09] MEDS: CLOPIDOGREL 75 MG TAB PO SCH (08:46)
[2023-03-09] MEDS: ASPIRIN 81MG ENTERIC TABLET PO SCH (08:46)
[2023-03-09] MEDS: DOCUSATE SODIUM 100MG CAPSULE PO SCH ×3 (08:46→21:00)
[2023-03-09] MEDS: INSULIN LISPRO (NovoLOG) PER UNIT SC SCH ×4 (08:46→20:21)
[2023-03-09] MEDS: AUGMENTIN 500MG TAB PO SCH ×2 (08:46→22:23)
[2023-03-09] MEDS: SUCROFERRIC OXYHYDROXIDE 500MG CHEW TAB (VELPHORO) PO SCH ×3 (08:46→18:25)
[2023-03-09] MEDS: NYSTATIN 100,000 UNITS/GM TOPICAL PWD 15GM TOP SCH ×2 (08:47→22:25)
[2023-03-09] MEDS: METOPROLOL SUCC *XL* 25MG TAB (TopROL *XL*) PO SCH (08:47)
[2023-03-09] MEDS: POTASSIUM CHLORIDE 10MEQ SR TABLET PO SCH ×2 (08:47→22:23)
[2023-03-09] MEDS: OMEPRAZOLE 20MG CAP PO SCH (08:47)
[2023-03-09] MEDS: COMBIGAN OU SCH ×2 (08:48→22:25)
[2023-03-09] MEDS: ATROPINE SULFATE 1% OPHTH SOLN 2ML BTL OS SCH (08:49)
[2023-03-09] MEDS: prednisoLONE ACET 1% OPHTH SUSP 5ML OS SCH ×2 (08:49→22:26)
[2023-03-09 12:02] VITALS: BP 128/61; TEMP 97.5; O2SAT 98
[2023-03-09 15:38] VITALS: BP 157/71; TEMP 97.4; O2SAT 96
[2023-03-09 19:35] VITALS: BP 133/58; TEMP 97.3; O2SAT 93
[2023-03-09] MEDS: ROSUVASTATIN 10 MG TAB (CRESTOR) PO SCH (22:23)
[2023-03-09] MEDS: HEPARIN SOD (PORCINE) 5000UNITS/ML 1ML VIAL/SYRINGE PD SCH (22:25)
[2023-03-09] MEDS: LUMIGAN 0.01% OS SCH (22:26)
[2023-03-09] MEDS: ROCKLATAN OD SCH (22:27)
[2023-03-10] MEDS: HEPARIN SOD (PORCINE) 5000UNITS/ML 1ML VIAL/SYRINGE SQ SCH ×3 (05:54→21:07)
[2023-03-10] MEDS: LEVOTHYROXINE 25MCG TABLET (0.025MG) PO SCH (05:54)
[2023-03-10 06:30] VITALS: BP 156/70; TEMP 97; O2SAT 94
[2023-03-10 07:08] LABS: CALCIUM LEVEL 8.2 MG/DL (8.3-10.6); CREATININE FOR GFR 6.17 MG/DL (0.70-1.30); GLOMERULAR FILTRATION RATE 9.7 (>49); POTASSIUM SERUM 3.7 MMOL/L (3.5-5.1)
[2023-03-10] MEDS: INSULIN LISPRO (NovoLOG) PER UNIT SC SCH ×4 (07:30→21:07)
[2023-03-10 07:46] VITALS: BP 135/84; TEMP 96.8; O2SAT 96
[2023-03-10] MEDS: SUCROFERRIC OXYHYDROXIDE 500MG CHEW TAB (VELPHORO) PO SCH ×4 (08:00→17:26)
[2023-03-10 08:07] LABS: BASO # 0.1 10^3/uL (0.0-0.2); BASO % 0.5 % (0.0-1.0); EOS # 0.4 10^3/uL (0.0-0.5); EOS % 2.8 % (0.0-3.0); HEMATOCRIT 31.4 % (42.0-52.0); HEMOGLOBIN 10.9 g/dl (13.5-17.5); LYMPH # 1.8 10^3/uL (1.5-5.0); LYMPH % 11.6 % (24.0-44.0); MEAN CORPUSCULAR HEMOGLOBIN 36.9 pg (27.0-33.0); MEAN CORPUSCULAR HGB CONC 34.7 g/dl (32.0-36.5); MEAN CORPUSCULAR VOLUME 106.4 fl (80.0-96.0); MONO % 11.5 % (2.0-8.0); NEUTROPHILS % 72.2 % (36.0-66.0); RED BLOOD COUNT 2.95 10^6/uL (4.30-6.10); WHITE BLOOD COUNT 15.2 10^3/uL (4.0-10.0)
[2023-03-10] MEDS: OMEPRAZOLE 20MG CAP PO SCH (08:18)
[2023-03-10] MEDS: DOCUSATE SODIUM 100MG CAPSULE PO SCH ×3 (08:18→21:00)
[2023-03-10] MEDS: POTASSIUM CHLORIDE 10MEQ SR TABLET PO SCH ×2 (08:18→21:08)
[2023-03-10] MEDS: ASPIRIN 81MG ENTERIC TABLET PO SCH (08:18)
[2023-03-10] MEDS: CINACALCET 30 MG TAB (SENSIPAR) PO SCH (08:18)
[2023-03-10] MEDS: AUGMENTIN 500MG TAB PO SCH ×2 (08:18→21:08)
[2023-03-10] MEDS: METOPROLOL SUCC *XL* 25MG TAB (TopROL *XL*) PO SCH (08:19)
[2023-03-10] MEDS: prednisoLONE ACET 1% OPHTH SUSP 5ML OS SCH ×2 (08:23→21:10)
[2023-03-10] MEDS: ATROPINE SULFATE 1% OPHTH SOLN 2ML BTL OS SCH (08:23)
[2023-03-10] MEDS: NYSTATIN 100,000 UNITS/GM TOPICAL PWD 15GM TOP SCH ×2 (08:24→21:08)
[2023-03-10] MEDS: COMBIGAN OU SCH ×2 (08:24→21:09)
[2023-03-10] MEDS: LEVEMIR (INSULIN DETEMIR) 1 UNITS/0.01ML SC SCH ×3 (08:32→21:06)
[2023-03-10 08:50] LABS: MONO # 1.7 10^3/uL (0.0-0.8); PLATELET COUNT, AUTOMATED 221 10^3/uL (150-450)
[2023-03-10] MEDS ORDERED: E-Z-PAQUE 96% w/w SUSP 176GM BTL As Ordered ONE (09:05)
[2023-03-10] MEDS ORDERED: E-Z-GAS II EFFERVESCENT PACKET (SODIUM BICARB./CITRIC ACID/SIMETHICONE) As Ordered ONE ×2 (09:05→11:22)
[2023-03-10] MEDS ORDERED: E-Z-HD 98% w/w 340GM SUSP BTL As Ordered ONE (09:05)
[2023-03-10] MEDS: CLOPIDOGREL 75 MG TAB PO SCH (09:14)
[2023-03-10 10:51] VITALS: BP 156/72; TEMP 96.9; O2SAT 96
[2023-03-10 12:00] VITALS: BP 152/69; TEMP 97.7; O2SAT 95
[2023-03-10 15:24] LABS: ERYTHROCYTE SEDIMENTATION RATE > 130 mm/hr (0-20)
[2023-03-10 15:26] LABS: C REACTIVE PROTEIN QUANTITATIV 12.9 MG/DL (<1.0)
[2023-03-10 15:46] LABS: PROCALCITONIN 2.33 ng/ml
[2023-03-10 20:00] VITALS: BP 133/63; TEMP 96.3; O2SAT 98
[2023-03-10] MEDS: ROSUVASTATIN 10 MG TAB (CRESTOR) PO SCH (21:07)
[2023-03-10] MEDS: ROCKLATAN OD SCH (21:09)
[2023-03-10] MEDS: LUMIGAN 0.01% OS SCH (21:10)
[2023-03-10] MEDS: HEPARIN SOD (PORCINE) 5000UNITS/ML 1ML VIAL/SYRINGE PD SCH (22:23)
[2023-03-11 03:31] VITALS: BP 139/60; TEMP 96.8; O2SAT 100
[2023-03-11] MEDS: LEVOTHYROXINE 25MCG TABLET (0.025MG) PO SCH (05:29)
[2023-03-11] MEDS: HEPARIN SOD (PORCINE) 5000UNITS/ML 1ML VIAL/SYRINGE SQ SCH ×3 (05:29→21:00)
[2023-03-11] MEDS: INSULIN LISPRO (NovoLOG) PER UNIT SC SCH ×4 (07:30→20:31)
[2023-03-11 07:33] LABS: HEMATOCRIT 30.7 % (42.0-52.0); HEMOGLOBIN 10.2 g/dl (13.5-17.5); MEAN CORPUSCULAR HEMOGLOBIN 36.2 pg (27.0-33.0); MEAN CORPUSCULAR HGB CONC 33.2 g/dl (32.0-36.5); MEAN CORPUSCULAR VOLUME 108.9 fl (80.0-96.0); PLATELET COUNT, AUTOMATED 215 10^3/uL (150-450); RED BLOOD COUNT 2.82 10^6/uL (4.30-6.10); WHITE BLOOD COUNT 13.7 10^3/uL (4.0-10.0)
[2023-03-11 07:53] LABS: ATYPICAL LYMPH 2 % (0-5); EOSINOPHILS 6 % (0-3); LYMPHOCYTES 14 % (16-44); MONOCYTES 11 % (0-5); NEUTROPHILS 67 % (28-66); PLATELET CLUMPS SMALL AMT; PLATELET ESTIMATE NORMAL (NORMAL)
[2023-03-11 07:54] LABS: ANISOCYTOSIS 1+; POLYCHROMASIA 1+
[2023-03-11 07:57] LABS: CALCIUM LEVEL 8.1 MG/DL (8.3-10.6); CREATININE FOR GFR 6.15 MG/DL (0.70-1.30); GLOMERULAR FILTRATION RATE 9.7 (>49); POTASSIUM SERUM 3.8 MMOL/L (3.5-5.1)
[2023-03-11] MEDS: LEVEMIR (INSULIN DETEMIR) 1 UNITS/0.01ML SC SCH ×2 (08:08→21:01)
[2023-03-11] MEDS: LACTOBACILLUS ACIDOPHILUS CAP (BACID) PO SCH ×2 (08:10→17:59)
[2023-03-11] MEDS: ASPIRIN 81MG ENTERIC TABLET PO SCH (08:10)
[2023-03-11] MEDS: DOCUSATE SODIUM 100MG CAPSULE PO SCH ×3 (08:10→21:00)
[2023-03-11] MEDS: OMEPRAZOLE 20MG CAP PO SCH (08:10)
[2023-03-11] MEDS: METOPROLOL SUCC *XL* 25MG TAB (TopROL *XL*) PO SCH (08:11)
[2023-03-11] MEDS: SUCROFERRIC OXYHYDROXIDE 500MG CHEW TAB (VELPHORO) PO SCH ×3 (08:11→17:59)
[2023-03-11] MEDS: POTASSIUM CHLORIDE 10MEQ SR TABLET PO SCH ×2 (08:11→21:03)
[2023-03-11] MEDS: CLOPIDOGREL 75 MG TAB PO SCH (08:11)
[2023-03-11] MEDS: AUGMENTIN 500MG TAB PO SCH ×2 (08:11→20:59)
[2023-03-11] MEDS: ATROPINE SULFATE 1% OPHTH SOLN 2ML BTL OS SCH (08:12)
[2023-03-11] MEDS: prednisoLONE ACET 1% OPHTH SUSP 5ML OS SCH ×2 (08:12→20:58)
[2023-03-11] MEDS: NYSTATIN 100,000 UNITS/GM TOPICAL PWD 15GM TOP SCH ×2 (08:12→20:59)
[2023-03-11] MEDS: COMBIGAN OU SCH ×2 (08:13→21:03)
[2023-03-11 13:25] VITALS: BP 116/54; TEMP 97.2; O2SAT 98
[2023-03-11 20:00] VITALS: BP 116/55; TEMP 97.1; O2SAT 100
[2023-03-11] MEDS: ROCKLATAN OD SCH (20:32)
[2023-03-11] MEDS: LUMIGAN 0.01% OS SCH (20:33)
[2023-03-11] MEDS: ROSUVASTATIN 10 MG TAB (CRESTOR) PO SCH (20:59)
[2023-03-11] MEDS: HEPARIN SOD (PORCINE) 5000UNITS/ML 1ML VIAL/SYRINGE PD SCH (22:11)
[2023-03-12 05:00] LABS: BASO # 0.1 10^3/uL (0.0-0.2); BASO % 0.7 % (0.0-1.0); EOS # 0.4 10^3/uL (0.0-0.5); EOS % 4.1 % (0.0-3.0); HEMATOCRIT 31.6 % (42.0-52.0); HEMOGLOBIN 10.4 g/dl (13.5-17.5); LYMPH # 1.5 10^3/uL (1.5-5.0); LYMPH % 14.5 % (24.0-44.0); MEAN CORPUSCULAR HEMOGLOBIN 35.7 pg (27.0-33.0); MEAN CORPUSCULAR HGB CONC 32.9 g/dl (32.0-36.5); MEAN CORPUSCULAR VOLUME 108.6 fl (80.0-96.0); MONO # 1.2 10^3/uL (0.0-0.8); MONO % 11.7 % (2.0-8.0); NEUTROPHILS # 7.2 10^3/uL (1.5-8.5); NEUTROPHILS % 67.7 % (36.0-66.0); PLATELET COUNT, AUTOMATED 221 10^3/uL (150-450); RED BLOOD COUNT 2.91 10^6/uL (4.30-6.10); WHITE BLOOD COUNT 10.6 10^3/uL (4.0-10.0)
[2023-03-12] MEDS: LEVOTHYROXINE 25MCG TABLET (0.025MG) PO SCH (05:19)
[2023-03-12] MEDS: HEPARIN SOD (PORCINE) 5000UNITS/ML 1ML VIAL/SYRINGE SQ SCH ×3 (05:20→19:52)
[2023-03-12 05:23] LABS: CALCIUM LEVEL 7.9 MG/DL (8.3-10.6); CREATININE FOR GFR 6.31 MG/DL (0.70-1.30); GLOMERULAR FILTRATION RATE 9.4 (>49); POTASSIUM SERUM 3.9 MMOL/L (3.5-5.1)
[2023-03-12] MEDS: LEVEMIR (INSULIN DETEMIR) 1 UNITS/0.01ML SC SCH ×2 (09:24→20:02)
[2023-03-12] MEDS: SUCROFERRIC OXYHYDROXIDE 500MG CHEW TAB (VELPHORO) PO SCH ×3 (09:25→17:37)
[2023-03-12] MEDS: INSULIN LISPRO (NovoLOG) PER UNIT SC SCH ×4 (09:25→20:00)
[2023-03-12] MEDS: AUGMENTIN 500MG TAB PO SCH ×2 (09:26→19:51)
[2023-03-12] MEDS: POTASSIUM CHLORIDE 10MEQ SR TABLET PO SCH ×2 (09:26→19:51)
[2023-03-12] MEDS: METOPROLOL SUCC *XL* 25MG TAB (TopROL *XL*) PO SCH (09:26)
[2023-03-12] MEDS: DOCUSATE SODIUM 100MG CAPSULE PO SCH ×2 (09:26→19:51)
[2023-03-12] MEDS: ASPIRIN 81MG ENTERIC TABLET PO SCH (09:26)
[2023-03-12] MEDS: CLOPIDOGREL 75 MG TAB PO SCH (09:27)
[2023-03-12] MEDS: NYSTATIN 100,000 UNITS/GM TOPICAL PWD 15GM TOP SCH ×2 (09:27→19:49)
[2023-03-12] MEDS: OMEPRAZOLE 20MG CAP PO SCH (09:27)
[2023-03-12] MEDS: LACTOBACILLUS ACIDOPHILUS CAP (BACID) PO SCH ×2 (09:27→17:38)
[2023-03-12] MEDS: COMBIGAN OU SCH ×2 (09:28→19:53)
[2023-03-12] MEDS: ATROPINE SULFATE 1% OPHTH SOLN 2ML BTL OS SCH (09:28)
[2023-03-12] MEDS: prednisoLONE ACET 1% OPHTH SUSP 5ML OS SCH ×2 (09:28→19:52)
[2023-03-12 17:10] VITALS: BP 187/94; TEMP 97; O2SAT 98
[2023-03-12 17:44] VITALS: BP 182/91
[2023-03-12 17:58] VITALS: BP 178/91
[2023-03-12] MEDS ORDERED: amLODIPine 5 MG TAB PO ONE (18:05)
[2023-03-12] MEDS: ROSUVASTATIN 10 MG TAB (CRESTOR) PO SCH (19:51)
[2023-03-12] MEDS: LUMIGAN 0.01% OS SCH (19:55)
[2023-03-12] MEDS: ROCKLATAN OD SCH (19:56)
[2023-03-12] MEDS: HEPARIN SOD (PORCINE) 5000UNITS/ML 1ML VIAL/SYRINGE PD SCH (21:38)
[2023-03-13] MEDS: HEPARIN SOD (PORCINE) 5000UNITS/ML 1ML VIAL/SYRINGE SQ SCH ×3 (05:00→22:21)
[2023-03-13] MEDS: LEVOTHYROXINE 25MCG TABLET (0.025MG) PO SCH (05:07)
[2023-03-13 05:39] VITALS: BP 126/58; TEMP 97.2; O2SAT 97
[2023-03-13 05:46] LABS: BASO # 0.1 10^3/uL (0.0-0.2); BASO % 0.4 % (0.0-1.0); EOS # 0.4 10^3/uL (0.0-0.5); EOS % 3.6 % (0.0-3.0); HEMATOCRIT 30.4 % (42.0-52.0); HEMOGLOBIN 10.2 g/dl (13.5-17.5); LYMPH # 1.6 10^3/uL (1.5-5.0); LYMPH % 12.9 % (24.0-44.0); MEAN CORPUSCULAR HGB CONC 33.6 g/dl (32.0-36.5); MEAN CORPUSCULAR VOLUME 107.4 fl (80.0-96.0); MONO # 1.2 10^3/uL (0.0-0.8); MONO % 9.6 % (2.0-8.0); NEUTROPHILS # 8.9 10^3/uL (1.5-8.5); NEUTROPHILS % 72.4 % (36.0-66.0); PLATELET COUNT, AUTOMATED 217 10^3/uL (150-450); RED BLOOD COUNT 2.83 10^6/uL (4.30-6.10); WHITE BLOOD COUNT 12.2 10^3/uL (4.0-10.0)
[2023-03-13 06:10] LABS: C REACTIVE PROTEIN QUANTITATIV 8.8 MG/DL (<1.0)
[2023-03-13 06:12] LABS: CALCIUM LEVEL 8.4 MG/DL (8.3-10.6); CREATININE FOR GFR 6.16 MG/DL (0.70-1.30); GLOMERULAR FILTRATION RATE 9.7 (>49); POTASSIUM SERUM 4.1 MMOL/L (3.5-5.1)
[2023-03-13] MEDS: INSULIN LISPRO (NovoLOG) PER UNIT SC SCH ×4 (07:30→21:00)
[2023-03-13] MEDS: CINACALCET 30 MG TAB (SENSIPAR) PO SCH (08:38)
[2023-03-13] MEDS: ASPIRIN 81MG ENTERIC TABLET PO SCH (08:38)
[2023-03-13] MEDS: DOCUSATE SODIUM 100MG CAPSULE PO SCH ×2 (08:38→22:22)
[2023-03-13] MEDS: OMEPRAZOLE 20MG CAP PO SCH (08:38)
[2023-03-13] MEDS: LACTOBACILLUS ACIDOPHILUS CAP (BACID) PO SCH ×2 (08:38→17:09)
[2023-03-13] MEDS: AUGMENTIN 500MG TAB PO SCH ×2 (08:38→22:21)
[2023-03-13] MEDS: SUCROFERRIC OXYHYDROXIDE 500MG CHEW TAB (VELPHORO) PO SCH ×3 (08:38→17:08)
[2023-03-13] MEDS: CLOPIDOGREL 75 MG TAB PO SCH (08:39)
[2023-03-13] MEDS: LEVEMIR (INSULIN DETEMIR) 1 UNITS/0.01ML SC SCH ×2 (08:39→22:23)
[2023-03-13] MEDS: POTASSIUM CHLORIDE 10MEQ SR TABLET PO SCH ×2 (08:39→22:22)
[2023-03-13] MEDS: METOPROLOL SUCC *XL* 25MG TAB (TopROL *XL*) PO SCH (08:40)
[2023-03-13] MEDS: NYSTATIN 100,000 UNITS/GM TOPICAL PWD 15GM TOP SCH ×2 (08:41→22:22)
[2023-03-13] MEDS: prednisoLONE ACET 1% OPHTH SUSP 5ML OS SCH ×2 (08:42→22:25)
[2023-03-13] MEDS: COMBIGAN OU SCH ×2 (08:42→22:25)
[2023-03-13] MEDS: ATROPINE SULFATE 1% OPHTH SOLN 2ML BTL OS SCH (08:44)
[2023-03-13] MEDS: ACETAMINOPHEN TAB 650MG DOSE (2X325MG) PO PRN ×3 (11:50→23:09)
[2023-03-13] MEDS: LIDOCAINE 5% (LIDODERM) PATCH TD SCH (15:19)
[2023-03-13] MEDS: HEPARIN SOD (PORCINE) 5000UNITS/ML 1ML VIAL/SYRINGE PD SCH (22:21)
[2023-03-13] MEDS: ROSUVASTATIN 10 MG TAB (CRESTOR) PO SCH (22:22)
[2023-03-13] MEDS: ROCKLATAN OD SCH (22:24)
[2023-03-13] MEDS: LUMIGAN 0.01% OS SCH (22:25)
[2023-03-14] MEDS: LEVOTHYROXINE 25MCG TABLET (0.025MG) PO SCH (05:39)
[2023-03-14] MEDS: HEPARIN SOD (PORCINE) 5000UNITS/ML 1ML VIAL/SYRINGE SQ SCH ×3 (05:39→21:53)
[2023-03-14 05:48] LABS: BASO # 0.1 10^3/uL (0.0-0.2); BASO % 0.6 % (0.0-1.0); EOS # 0.3 10^3/uL (0.0-0.5); EOS % 2.8 % (0.0-3.0); HEMATOCRIT 32.3 % (42.0-52.0); HEMOGLOBIN 10.7 g/dl (13.5-17.5); LYMPH # 1.5 10^3/uL (1.5-5.0); MEAN CORPUSCULAR HGB CONC 33.1 g/dl (32.0-36.5); MEAN CORPUSCULAR VOLUME 108.8 fl (80.0-96.0); MONO # 1.1 10^3/uL (0.0-0.8); NEUTROPHILS # 8.6 10^3/uL (1.5-8.5); NEUTROPHILS % 73.6 % (36.0-66.0); PLATELET COUNT, AUTOMATED 208 10^3/uL (150-450); RED BLOOD COUNT 2.97 10^6/uL (4.30-6.10); WHITE BLOOD COUNT 11.7 10^3/uL (4.0-10.0)
[2023-03-14 06:00] VITALS: BP 131/59; TEMP 97.9; O2SAT 96
[2023-03-14 06:20] LABS: CALCIUM LEVEL 8.2 MG/DL (8.3-10.6); CREATININE FOR GFR 6.23 MG/DL (0.70-1.30); GLOMERULAR FILTRATION RATE 9.6 (>49)
[2023-03-14] MEDS: SUCROFERRIC OXYHYDROXIDE 500MG CHEW TAB (VELPHORO) PO SCH ×3 (09:29→17:10)
[2023-03-14] MEDS: LACTOBACILLUS ACIDOPHILUS CAP (BACID) PO SCH ×2 (09:30→17:10)
[2023-03-14] MEDS: CLOPIDOGREL 75 MG TAB PO SCH (09:30)
[2023-03-14] MEDS: AUGMENTIN 500MG TAB PO SCH ×2 (09:30→21:52)
[2023-03-14] MEDS: ASPIRIN 81MG ENTERIC TABLET PO SCH (09:30)
[2023-03-14] MEDS: DOCUSATE SODIUM 100MG CAPSULE PO SCH ×2 (09:30→21:52)
[2023-03-14] MEDS: OMEPRAZOLE 20MG CAP PO SCH (09:30)
[2023-03-14] MEDS: POTASSIUM CHLORIDE 10MEQ SR TABLET PO SCH ×2 (09:30→21:52)
[2023-03-14 09:31] VITALS: BP 140/60
[2023-03-14] MEDS: METOPROLOL SUCC *XL* 25MG TAB (TopROL *XL*) PO SCH (09:31)
[2023-03-14] MEDS: LEVEMIR (INSULIN DETEMIR) 1 UNITS/0.01ML SC SCH (09:32)
[2023-03-14] MEDS: INSULIN LISPRO (NovoLOG) PER UNIT SC SCH ×3 (09:33→17:10)
[2023-03-14] MEDS: ATROPINE SULFATE 1% OPHTH SOLN 2ML BTL OS SCH (09:34)
[2023-03-14] MEDS: prednisoLONE ACET 1% OPHTH SUSP 5ML OS SCH ×2 (09:39→21:54)
[2023-03-14] MEDS: NYSTATIN 100,000 UNITS/GM TOPICAL PWD 15GM TOP SCH ×2 (09:40→21:56)
[2023-03-14] MEDS: LIDOCAINE 5% (LIDODERM) PATCH TD SCH (09:40)
[2023-03-14] MEDS: COMBIGAN OU SCH ×3 (09:44→21:53)
[2023-03-14] MEDS ORDERED: VANCOMYCIN HCL 750 MG, VIAL MATE ADAPTER 1 EACH in D5W 250 ML IV SCH (10:40)
[2023-03-14] MEDS: DARBEPOETIN 100MCG/0.5ML *NON-DIALYSIS* SYRINGE SC SCH (10:54)
[2023-03-14 10:55] LABS: C REACTIVE PROTEIN QUANTITATIV 10.7 MG/DL (<1.0)
[2023-03-14] MEDS ORDERED: VANCOMYCIN INTERMITTENT/PULSE DOSING BY CLINICAL PHARMACIST PER DOSING PROTOCOL XX SCH (12:10)
[2023-03-14] MEDS ORDERED: VANCOMYCIN HCL 750 MG, VIAL MATE ADAPTER 1 EACH in D5W 250 ML IV ONE (13:00)
[2023-03-14] MEDS ORDERED: VANCOMYCIN HCL 500 MG in D5W MINI-BAG PLUS 100 ML IV ONE (14:00)
[2023-03-14] MEDS ORDERED: LEVEMIR (INSULIN DETEMIR) 1 UNITS/0.01ML SC SCH (21:00)
[2023-03-14] MEDS: ROSUVASTATIN 10 MG TAB (CRESTOR) PO SCH (21:52)
[2023-03-14] MEDS: LUMIGAN 0.01% OS SCH (21:54)
[2023-03-14] MEDS: ROCKLATAN OD SCH (21:54)
[2023-03-14] MEDS: HEPARIN SOD (PORCINE) 5000UNITS/ML 1ML VIAL/SYRINGE PD SCH (21:55)
[2023-03-15] VITALS (10 sets, daily range): BP systolic 82–139; BP diastolic 46–74; TEMP 97–97.3; O2SAT 91–100
[2023-03-15] MEDS: HEPARIN SOD (PORCINE) 5000UNITS/ML 1ML VIAL/SYRINGE SQ SCH ×3 (05:41→21:14)
[2023-03-15] MEDS: LEVOTHYROXINE 25MCG TABLET (0.025MG) PO SCH (06:15)
[2023-03-15] MEDS: INSULIN LISPRO (NovoLOG) PER UNIT SC SCH ×3 (07:30→17:30)
[2023-03-15] MEDS: SUCROFERRIC OXYHYDROXIDE 500MG CHEW TAB (VELPHORO) PO SCH (08:00)
[2023-03-15] MEDS: LACTOBACILLUS ACIDOPHILUS CAP (BACID) PO SCH (08:00)
[2023-03-15 08:22] LABS: BASO # 0.1 10^3/uL (0.0-0.2); BASO % 0.6 % (0.0-1.0); EOS # 0.4 10^3/uL (0.0-0.5); EOS % 2.5 % (0.0-3.0); HEMATOCRIT 34.7 % (42.0-52.0); HEMOGLOBIN 11.3 g/dl (13.5-17.5); LYMPH # 1.7 10^3/uL (1.5-5.0); LYMPH % 10.6 % (24.0-44.0); MEAN CORPUSCULAR HEMOGLOBIN 35.6 pg (27.0-33.0); MEAN CORPUSCULAR HGB CONC 32.6 g/dl (32.0-36.5); MEAN CORPUSCULAR VOLUME 109.5 fl (80.0-96.0); MONO % 6.3 % (2.0-8.0); NEUTROPHILS % 79.1 % (36.0-66.0); PLATELET COUNT, AUTOMATED 213 10^3/uL (150-450); RED BLOOD COUNT 3.17 10^6/uL (4.30-6.10); WHITE BLOOD COUNT 16.4 10^3/uL (4.0-10.0)
[2023-03-15 08:52] LABS: CALCIUM LEVEL 8.3 MG/DL (8.3-10.6); CREATININE FOR GFR 6.12 MG/DL (0.70-1.30); GLOMERULAR FILTRATION RATE 9.8 (>49); POTASSIUM SERUM 3.9 MMOL/L (3.5-5.1)
[2023-03-15] MEDS: LIDOCAINE 5% (LIDODERM) PATCH TD SCH (09:00)
[2023-03-15] MEDS: POTASSIUM CHLORIDE 10MEQ SR TABLET PO SCH (09:00)
[2023-03-15] MEDS: OMEPRAZOLE 20MG CAP PO SCH (09:00)
[2023-03-15] MEDS: CINACALCET 30 MG TAB (SENSIPAR) PO SCH (09:00)
[2023-03-15] MEDS: CLOPIDOGREL 75 MG TAB PO SCH (09:00)
[2023-03-15] MEDS: METOPROLOL SUCC *XL* 25MG TAB (TopROL *XL*) PO SCH (09:00)
[2023-03-15] MEDS: DOCUSATE SODIUM 100MG CAPSULE PO SCH (09:00)
[2023-03-15] MEDS: ASPIRIN 81MG ENTERIC TABLET PO SCH (09:00)
[2023-03-15] MEDS: PANTOPRAZOLE 40MG VIAL IV SCH ×2 (09:00→21:14)
[2023-03-15] MEDS: NYSTATIN 100,000 UNITS/GM TOPICAL PWD 15GM TOP SCH ×2 (09:00→21:04)
[2023-03-15] MEDS ORDERED: LEVEMIR (INSULIN DETEMIR) 1 UNITS/0.01ML SC SCH (09:00)
[2023-03-15] MEDS: prednisoLONE ACET 1% OPHTH SUSP 5ML OS SCH ×2 (09:57→20:59)
[2023-03-15] MEDS: ATROPINE SULFATE 1% OPHTH SOLN 2ML BTL OS SCH (09:58)
[2023-03-15] MEDS: COMBIGAN OU SCH ×2 (09:59→21:03)
[2023-03-15] MEDS ORDERED: ONDANSETRON 4MG ORAL DISINTEGRATING TAB PO STA (10:12)
[2023-03-15] MEDS: ONDANSETRON 4MG 2ML VIAL IV PRN (12:29)
[2023-03-15] MEDS ORDERED: LIDOCAINE 1% MDV 20ML VIAL As Ordered ONE (14:57)
[2023-03-15] MEDS ORDERED: NS 500 ML IV ONE (17:00)
[2023-03-15] MEDS: SODIUM CHLORIDE 0.9% INJ 10 ML SYR IV SCH (18:00)
[2023-03-15] MEDS: ROCKLATAN OD SCH (21:00)
[2023-03-15] MEDS: LUMIGAN 0.01% OS SCH (21:02)
[2023-03-15] MEDS: LEVEMIR (INSULIN DETEMIR) 1 UNITS/0.01ML SC SCH (21:14)
[2023-03-15] MEDS: HEPARIN SOD (PORCINE) 5000UNITS/ML 1ML VIAL/SYRINGE PD SCH (22:02)
[2023-03-16] VITALS (14 sets, daily range): BP systolic 73–120; BP diastolic 38–58; TEMP 96.1–97.3; O2SAT 93–99
[2023-03-16] MEDS: HEPARIN SOD (PORCINE) 5000UNITS/ML 1ML VIAL/SYRINGE SQ SCH ×3 (05:08→21:20)
[2023-03-16] MEDS: SODIUM CHLORIDE 0.9% INJ 10 ML SYR IV SCH ×2 (05:08→18:00)
[2023-03-16 05:22] LABS: HEMATOCRIT 30.8 % (42.0-52.0); HEMOGLOBIN 10.2 g/dl (13.5-17.5); MEAN CORPUSCULAR HEMOGLOBIN 35.8 pg (27.0-33.0); MEAN CORPUSCULAR HGB CONC 33.1 g/dl (32.0-36.5); MEAN CORPUSCULAR VOLUME 108.1 fl (80.0-96.0); PLATELET COUNT, AUTOMATED 199 10^3/uL (150-450); RED BLOOD COUNT 2.85 10^6/uL (4.30-6.10); WHITE BLOOD COUNT 25.9 10^3/uL (4.0-10.0)
[2023-03-16 06:07] LABS: ALBUMIN 1.8 G/DL (3.2-5.2); CALCIUM LEVEL 8.1 MG/DL (8.3-10.6); CREATININE FOR GFR 6.07 MG/DL (0.70-1.30); GLOMERULAR FILTRATION RATE 9.9 (>49); MAGNESIUM LEVEL 1.8 MG/DL (1.8-2.4); PHOSPHORUS LEVEL 3.6 MG/DL (2.4-5.1); POTASSIUM SERUM 4.3 MMOL/L (3.5-5.1)
[2023-03-16] MEDS: LEVOTHYROXINE 25MCG TABLET (0.025MG) PO SCH (06:18)
[2023-03-16] MEDS: LIDOCAINE 5% (LIDODERM) PATCH TD SCH (09:00)
[2023-03-16] MEDS: DOCUSATE SODIUM 100MG CAPSULE PO SCH ×2 (09:00→21:20)
[2023-03-16] MEDS: CLOPIDOGREL 75 MG TAB PO SCH (09:11)
[2023-03-16] MEDS: POTASSIUM CHLORIDE 10MEQ SR TABLET PO SCH ×2 (09:11→21:20)
[2023-03-16] MEDS: ASPIRIN 81MG ENTERIC TABLET PO SCH (09:11)
[2023-03-16] MEDS: INSULIN LISPRO (NovoLOG) PER UNIT SC SCH ×4 (09:12→18:00)
[2023-03-16] MEDS: LEVEMIR (INSULIN DETEMIR) 1 UNITS/0.01ML SC SCH ×2 (09:12→21:19)
[2023-03-16] MEDS: PANTOPRAZOLE 40MG VIAL IV SCH ×2 (09:12→21:19)
[2023-03-16] MEDS: NYSTATIN 100,000 UNITS/GM TOPICAL PWD 15GM TOP SCH ×2 (09:13→21:32)
[2023-03-16] MEDS: COMBIGAN OU SCH ×2 (09:15→21:25)
[2023-03-16] MEDS: ATROPINE SULFATE 1% OPHTH SOLN 2ML BTL OS SCH (09:17)
[2023-03-16] MEDS: prednisoLONE ACET 1% OPHTH SUSP 5ML OS SCH ×2 (09:22→21:32)
[2023-03-16] MEDS: NS 1,000 ML IV SCH ×2 (10:34→22:59)
[2023-03-16] MEDS: SUCROFERRIC OXYHYDROXIDE 500MG CHEW TAB (VELPHORO) PO SCH ×2 (12:30→18:00)
[2023-03-16] MEDS: METOCLOPRAMIDE 5 MG TAB PO SCH ×2 (13:06→17:59)
[2023-03-16] MEDS: LACTOBACILLUS ACIDOPHILUS CAP (BACID) PO SCH (17:59)
[2023-03-16] MEDS: LUMIGAN 0.01% OS SCH (20:30)
[2023-03-16] MEDS: ROCKLATAN OD SCH (20:31)
[2023-03-16] MEDS: BISACODYL 10MG SUPP PR SCH (21:20)
[2023-03-16] MEDS: ROSUVASTATIN 10 MG TAB (CRESTOR) PO SCH (21:20)
[2023-03-16] MEDS: HEPARIN SOD (PORCINE) 5000UNITS/ML 1ML VIAL/SYRINGE PD SCH (23:05)
[2023-03-17 03:17] VITALS: BP 108/61; TEMP 97.1; O2SAT 95
[2023-03-17] MEDS: HEPARIN SOD (PORCINE) 5000UNITS/ML 1ML VIAL/SYRINGE SQ SCH ×3 (05:06→21:36)
[2023-03-17] MEDS: SODIUM CHLORIDE 0.9% INJ 10 ML SYR IV SCH ×2 (05:07→18:14)
[2023-03-17] MEDS: LEVOTHYROXINE 25MCG TABLET (0.025MG) PO SCH (06:11)
[2023-03-17] MEDS: INSULIN LISPRO (NovoLOG) PER UNIT SC SCH ×6 (07:30→17:45)
[2023-03-17 08:00] VITALS: BP 115/53; TEMP 97.6; O2SAT 94
[2023-03-17] MEDS: SUCROFERRIC OXYHYDROXIDE 500MG CHEW TAB (VELPHORO) PO SCH ×3 (09:00→17:39)
[2023-03-17] MEDS: LIDOCAINE 5% (LIDODERM) PATCH TD SCH (09:00)
[2023-03-17] MEDS: PANTOPRAZOLE 40MG VIAL IV SCH ×2 (09:11→21:36)
[2023-03-17] MEDS: METOCLOPRAMIDE 5 MG TAB PO SCH ×3 (09:12→17:45)
[2023-03-17] MEDS: LEVEMIR (INSULIN DETEMIR) 1 UNITS/0.01ML SC SCH ×2 (09:12→21:00)
[2023-03-17] MEDS: ASPIRIN 81MG ENTERIC TABLET PO SCH (09:13)
[2023-03-17] MEDS: LACTOBACILLUS ACIDOPHILUS CAP (BACID) PO SCH ×2 (09:13→17:45)
[2023-03-17] MEDS: DOCUSATE SODIUM 100MG CAPSULE PO SCH ×2 (09:13→21:00)
[2023-03-17] MEDS: CLOPIDOGREL 75 MG TAB PO SCH (09:13)
[2023-03-17] MEDS: POTASSIUM CHLORIDE 10MEQ SR TABLET PO SCH ×2 (09:13→21:35)
[2023-03-17] MEDS: CINACALCET 30 MG TAB (SENSIPAR) PO SCH (09:13)
[2023-03-17] MEDS: NYSTATIN 100,000 UNITS/GM TOPICAL PWD 15GM TOP SCH ×2 (09:14→21:39)
[2023-03-17] MEDS: BISACODYL 10MG SUPP PR SCH ×2 (09:15→21:00)
[2023-03-17] MEDS: prednisoLONE ACET 1% OPHTH SUSP 5ML OS SCH ×2 (09:16→21:38)
[2023-03-17] MEDS: ATROPINE SULFATE 1% OPHTH SOLN 2ML BTL OS SCH (09:16)
[2023-03-17] MEDS: COMBIGAN OU SCH ×2 (09:16→21:36)
[2023-03-17 12:50] VITALS: BP 93/45; TEMP 97.3; O2SAT 98
[2023-03-17] MEDS ORDERED: LEVEMIR (INSULIN DETEMIR) 1 UNITS/0.01ML SC ONE (14:00)
[2023-03-17 15:54] VITALS: BP 111/55; TEMP 97.4; O2SAT 97
[2023-03-17 17:29] LABS: ALBUMIN 1.7 G/DL (3.2-5.2); CALCIUM LEVEL 8.1 MG/DL (8.3-10.6); CREATININE FOR GFR 5.66 MG/DL (0.70-1.30); GLOMERULAR FILTRATION RATE 10.7 (>49); PHOSPHORUS LEVEL 3.1 MG/DL (2.4-5.1); POTASSIUM SERUM 3.7 MMOL/L (3.5-5.1)
[2023-03-17 17:31] LABS: HEMATOCRIT 30.1 % (42.0-52.0); HEMOGLOBIN 9.9 g/dl (13.5-17.5); MEAN CORPUSCULAR HEMOGLOBIN 35.6 pg (27.0-33.0); MEAN CORPUSCULAR HGB CONC 32.9 g/dl (32.0-36.5); MEAN CORPUSCULAR VOLUME 108.3 fl (80.0-96.0); PLATELET COUNT, AUTOMATED 210 10^3/uL (150-450); RED BLOOD COUNT 2.78 10^6/uL (4.30-6.10); WHITE BLOOD COUNT 24.2 10^3/uL (4.0-10.0)
[2023-03-17 19:32] LABS: BILIRUBIN,DIRECT 0.2 MG/DL (<0.4); BILIRUBIN,TOTAL 0.3 MG/DL (0.3-1.2); TOTAL PROTEIN 5.2 G/DL (5.7-8.2)
[2023-03-17] MEDS: ROCKLATAN OD SCH (21:37)
[2023-03-17] MEDS: LUMIGAN 0.01% OS SCH (21:37)
[2023-03-17] MEDS: HEPARIN SOD (PORCINE) 5000UNITS/ML 1ML VIAL/SYRINGE PD SCH (21:40)
[2023-03-18 00:03] VITALS: BP 118/61; TEMP 96.3; O2SAT 97
[2023-03-18] MEDS: METOCLOPRAMIDE INJ 10MG/2ML VIAL IV SCH ×4 (01:04→18:44)
[2023-03-18 03:51] VITALS: BP 125/53; TEMP 96; O2SAT 95
[2023-03-18] MEDS: LEVOTHYROXINE 25MCG TABLET (0.025MG) PO SCH (05:42)
[2023-03-18] MEDS: HEPARIN SOD (PORCINE) 5000UNITS/ML 1ML VIAL/SYRINGE SQ SCH ×3 (05:42→21:30)
[2023-03-18] MEDS: SODIUM CHLORIDE 0.9% INJ 10 ML SYR IV SCH ×2 (05:43→18:45)
[2023-03-18 06:20] LABS: INR 1.02; PROTHROMBIN TIME 13.6 SECONDS (12.5-14.5)
[2023-03-18 06:21] LABS: PARTIAL THROMBOPLASTIN TIME 42.8 SECONDS (24.8-34.2)
[2023-03-18 08:00] VITALS: BP 100/40; TEMP 96.5; O2SAT 96
[2023-03-18] MEDS: BISACODYL 10MG SUPP PR SCH ×3 (09:00→21:30)
[2023-03-18] MEDS: DOCUSATE SODIUM 100MG CAPSULE PO SCH ×3 (09:00→21:29)
[2023-03-18] MEDS: INSULIN LISPRO (NovoLOG) PER UNIT SC SCH ×5 (09:07→18:44)
[2023-03-18] MEDS: POTASSIUM CHLORIDE 10MEQ SR TABLET PO SCH ×2 (09:32→21:30)
[2023-03-18] MEDS: ASPIRIN 81MG ENTERIC TABLET PO SCH (09:32)
[2023-03-18] MEDS: PANTOPRAZOLE 40MG VIAL IV SCH ×2 (09:32→21:30)
[2023-03-18] MEDS: LEVEMIR (INSULIN DETEMIR) 1 UNITS/0.01ML SC SCH ×2 (09:34→21:30)
[2023-03-18] MEDS: LIDOCAINE 5% (LIDODERM) PATCH TD SCH (09:34)
[2023-03-18] MEDS: NYSTATIN 100,000 UNITS/GM TOPICAL PWD 15GM TOP SCH ×2 (09:35→21:32)
[2023-03-18] MEDS: ATROPINE SULFATE 1% OPHTH SOLN 2ML BTL OS SCH (09:38)
[2023-03-18] MEDS: COMBIGAN OU SCH ×2 (09:38→21:31)
[2023-03-18] MEDS: prednisoLONE ACET 1% OPHTH SUSP 5ML OS SCH ×2 (09:39→21:32)
[2023-03-18 12:16] VITALS: BP 105/49; TEMP 96.2; O2SAT 96
[2023-03-18 17:13] VITALS: BP 103/51; TEMP 96.6; O2SAT 100
[2023-03-18] MEDS: LUMIGAN 0.01% OS SCH (21:31)
[2023-03-18] MEDS: ROCKLATAN OD SCH (21:32)
[2023-03-19] MEDS: METOCLOPRAMIDE INJ 10MG/2ML VIAL IV SCH ×5 (00:22→23:28)
[2023-03-19] MEDS: HEPARIN SOD (PORCINE) 5000UNITS/ML 1ML VIAL/SYRINGE PD SCH ×2 (00:22→23:28)
[2023-03-19 04:45] VITALS: BP 95/50; TEMP 96.2; O2SAT 93
[2023-03-19 05:18] VITALS: BP 100/50
[2023-03-19] MEDS: LEVOTHYROXINE 25MCG TABLET (0.025MG) PO SCH (06:12)
[2023-03-19] MEDS: SODIUM CHLORIDE 0.9% INJ 10 ML SYR IV SCH ×2 (06:12→18:30)
[2023-03-19] MEDS: HEPARIN SOD (PORCINE) 5000UNITS/ML 1ML VIAL/SYRINGE SQ SCH ×3 (06:12→21:44)
[2023-03-19] MEDS: SODIUM CHLORIDE 0.9% INJ 10 ML SYR IV PRN ×2 (07:30→21:45)
[2023-03-19 07:58] VITALS: BP 107/76; TEMP 96.5; O2SAT 95
[2023-03-19 07:59] LABS: BASO # 0.1 10^3/uL (0.0-0.2); BASO % 0.4 % (0.0-1.0); EOS # 0.2 10^3/uL (0.0-0.5); EOS % 0.8 % (0.0-3.0); HEMATOCRIT 29.2 % (42.0-52.0); HEMOGLOBIN 9.6 g/dl (13.5-17.5); LYMPH # 2.2 10^3/uL (1.5-5.0); LYMPH % 8.3 % (24.0-44.0); MEAN CORPUSCULAR HEMOGLOBIN 35.7 pg (27.0-33.0); MEAN CORPUSCULAR HGB CONC 32.9 g/dl (32.0-36.5); MEAN CORPUSCULAR VOLUME 108.6 fl (80.0-96.0); MONO % 8.7 % (2.0-8.0); NEUTROPHILS # 21.4 10^3/uL (1.5-8.5); NEUTROPHILS % 80.7 % (36.0-66.0); PLATELET COUNT, AUTOMATED 208 10^3/uL (150-450); RED BLOOD COUNT 2.69 10^6/uL (4.30-6.10); WHITE BLOOD COUNT 26.5 10^3/uL (4.0-10.0)
[2023-03-19 08:23] LABS: MONO # 2.3 10^3/uL (0.0-0.8)
[2023-03-19 08:26] LABS: C REACTIVE PROTEIN QUANTITATIV 28.6 MG/DL (<1.0)
[2023-03-19 08:27] LABS: CALCIUM LEVEL 7.9 MG/DL (8.3-10.6); CREATININE FOR GFR 5.97 MG/DL (0.70-1.30); GLOMERULAR FILTRATION RATE 10.1 (>49); POTASSIUM SERUM 3.9 MMOL/L (3.5-5.1)
[2023-03-19] MEDS: LEVEMIR (INSULIN DETEMIR) 1 UNITS/0.01ML SC SCH ×2 (09:59→21:44)
[2023-03-19] MEDS: LIDOCAINE 5% (LIDODERM) PATCH TD SCH (10:00)
[2023-03-19] MEDS: BISACODYL 10MG SUPP PR SCH ×2 (10:00→21:45)
[2023-03-19] MEDS: PANTOPRAZOLE 40MG VIAL IV SCH ×2 (10:00→21:44)
[2023-03-19] MEDS: INSULIN LISPRO (NovoLOG) PER UNIT SC SCH ×6 (10:00→18:31)
[2023-03-19] MEDS: DOCUSATE SODIUM 100MG CAPSULE PO SCH ×2 (10:01→21:44)
[2023-03-19] MEDS: POTASSIUM CHLORIDE 10MEQ SR TABLET PO SCH ×2 (10:01→21:44)
[2023-03-19] MEDS: CLOPIDOGREL 75 MG TAB PO SCH (10:01)
[2023-03-19] MEDS: NYSTATIN 100,000 UNITS/GM TOPICAL PWD 15GM TOP SCH ×2 (10:04→21:46)
[2023-03-19] MEDS: COMBIGAN OU SCH ×2 (10:05→21:46)
[2023-03-19] MEDS: ATROPINE SULFATE 1% OPHTH SOLN 2ML BTL OS SCH (10:05)
[2023-03-19] MEDS: ASPIRIN 81MG ENTERIC TABLET PO SCH (10:06)
[2023-03-19] MEDS: prednisoLONE ACET 1% OPHTH SUSP 5ML OS SCH ×2 (10:06→21:47)
[2023-03-19 12:00] VITALS: BP 99/48; TEMP 96.7; O2SAT 98
[2023-03-19 16:00] VITALS: BP 121/59; TEMP 97; O2SAT 95
[2023-03-19 20:10] VITALS: BP 104/50; TEMP 96.9; O2SAT 96
[2023-03-19] MEDS: LUMIGAN 0.01% OS SCH (21:46)
[2023-03-19] MEDS: ROCKLATAN OD SCH (21:47)
[2023-03-20 03:54] VITALS: BP 100/56; TEMP 96.8; O2SAT 96
[2023-03-20] MEDS: SODIUM CHLORIDE 0.9% INJ 10 ML SYR IV SCH ×2 (06:02→18:38)
[2023-03-20] MEDS: METOCLOPRAMIDE INJ 10MG/2ML VIAL IV SCH ×4 (06:03→23:39)
[2023-03-20] MEDS: LEVOTHYROXINE 25MCG TABLET (0.025MG) PO SCH (06:03)
[2023-03-20] MEDS: HEPARIN SOD (PORCINE) 5000UNITS/ML 1ML VIAL/SYRINGE SQ SCH ×3 (06:03→23:36)
[2023-03-20 06:42] LABS: BASO # 0.1 10^3/uL (0.0-0.2); BASO % 0.4 % (0.0-1.0); EOS # 0.3 10^3/uL (0.0-0.5); EOS % 1.4 % (0.0-3.0); HEMATOCRIT 30.3 % (42.0-52.0); HEMOGLOBIN 10.2 g/dl (13.5-17.5); LYMPH # 1.5 10^3/uL (1.5-5.0); LYMPH % 6.2 % (24.0-44.0); MEAN CORPUSCULAR HEMOGLOBIN 35.9 pg (27.0-33.0); MEAN CORPUSCULAR HGB CONC 33.7 g/dl (32.0-36.5); MEAN CORPUSCULAR VOLUME 106.7 fl (80.0-96.0); MONO % 8.5 % (2.0-8.0); NEUTROPHILS # 19.3 10^3/uL (1.5-8.5); NEUTROPHILS % 82.8 % (36.0-66.0); PLATELET COUNT, AUTOMATED 221 10^3/uL (150-450); RED BLOOD COUNT 2.84 10^6/uL (4.30-6.10); WHITE BLOOD COUNT 23.3 10^3/uL (4.0-10.0)
[2023-03-20 06:52] LABS: CALCIUM LEVEL 8.4 MG/DL (8.3-10.6); CREATININE FOR GFR 5.79 MG/DL (0.70-1.30); GLOMERULAR FILTRATION RATE 10.4 (>49); POTASSIUM SERUM 3.7 MMOL/L (3.5-5.1)
[2023-03-20 06:53] LABS: C REACTIVE PROTEIN QUANTITATIV 27.8 MG/DL (<1.0)
[2023-03-20] MEDS ORDERED: BISACODYL 10MG SUPP PR PRN (07:15)
[2023-03-20 07:29] VITALS: BP 104/49; TEMP 96; O2SAT 95
[2023-03-20] MEDS: INSULIN LISPRO (NovoLOG) PER UNIT SC SCH ×6 (07:30→18:38)
[2023-03-20] MEDS: ASPIRIN 81MG ENTERIC TABLET PO SCH (08:32)
[2023-03-20] MEDS: CLOPIDOGREL 75 MG TAB PO SCH (08:32)
[2023-03-20] MEDS: POTASSIUM CHLORIDE 10MEQ SR TABLET PO SCH ×2 (08:32→23:35)
[2023-03-20] MEDS: DOCUSATE SODIUM 100MG CAPSULE PO SCH ×2 (08:32→23:35)
[2023-03-20] MEDS: PANTOPRAZOLE 40MG VIAL IV SCH ×2 (08:32→23:36)
[2023-03-20] MEDS: LEVEMIR (INSULIN DETEMIR) 1 UNITS/0.01ML SC SCH ×2 (08:34→23:36)
[2023-03-20] MEDS: prednisoLONE ACET 1% OPHTH SUSP 5ML OS SCH ×2 (08:37→23:38)
[2023-03-20] MEDS: COMBIGAN OU SCH ×2 (08:37→23:38)
[2023-03-20] MEDS: LIDOCAINE 5% (LIDODERM) PATCH TD SCH (08:38)
[2023-03-20] MEDS: ATROPINE SULFATE 1% OPHTH SOLN 2ML BTL OS SCH (08:38)
[2023-03-20] MEDS: NYSTATIN 100,000 UNITS/GM TOPICAL PWD 15GM TOP SCH ×2 (08:39→23:39)
[2023-03-20] MEDS ORDERED: ISOVUE-370 76% 100ML VIAL As Ordered ONE (15:47)
[2023-03-20 16:00] VITALS: BP 115/51; TEMP 96.9; O2SAT 100
[2023-03-20 17:07] VITALS: BP 143/52; TEMP 97.5; O2SAT 99
[2023-03-20 20:48] LABS: SOURCE, BODY FLUID PERITONEAL
[2023-03-20 20:49] LABS: APPEARANCE, BODY FLUID CLEAR (CLEAR); PERITONEAL FL COLOR COLORLESS (COLORLESS)
[2023-03-20 20:53] VITALS: BP 102/42; TEMP 97; O2SAT 99
[2023-03-20] MEDS: ROCKLATAN OD SCH (23:37)
[2023-03-20] MEDS: LUMIGAN 0.01% OS SCH (23:38)
[2023-03-20] MEDS: HEPARIN SOD (PORCINE) 5000UNITS/ML 1ML VIAL/SYRINGE PD SCH (23:39)
[2023-03-20] MEDS: SODIUM CHLORIDE 0.9% INJ 10 ML SYR IV PRN (23:40)
[2023-03-21 01:30] VITALS: BP 100/42; TEMP 99.6; O2SAT 98
[2023-03-21] MEDS: HEPARIN SOD (PORCINE) 5000UNITS/ML 1ML VIAL/SYRINGE SQ SCH ×3 (05:45→23:06)
[2023-03-21] MEDS: LEVOTHYROXINE 25MCG TABLET (0.025MG) PO SCH (05:45)
[2023-03-21] MEDS: METOCLOPRAMIDE INJ 10MG/2ML VIAL IV SCH ×4 (05:46→23:07)
[2023-03-21] MEDS: SODIUM CHLORIDE 0.9% INJ 10 ML SYR IV PRN ×3 (05:46→13:42)
[2023-03-21] MEDS: SODIUM CHLORIDE 0.9% INJ 10 ML SYR IV SCH ×2 (05:46→18:27)
[2023-03-21 06:00] VITALS: BP 115/51; TEMP 97.5; O2SAT 97
[2023-03-21 06:33] LABS: BASO # 0.1 10^3/uL (0.0-0.2); BASO % 0.7 % (0.0-1.0); EOS # 0.4 10^3/uL (0.0-0.5); HEMATOCRIT 30.3 % (42.0-52.0); HEMOGLOBIN 9.9 g/dl (13.5-17.5); LYMPH # 1.8 10^3/uL (1.5-5.0); LYMPH % 13.8 % (24.0-44.0); MEAN CORPUSCULAR HEMOGLOBIN 35.2 pg (27.0-33.0); MEAN CORPUSCULAR HGB CONC 32.7 g/dl (32.0-36.5); MEAN CORPUSCULAR VOLUME 107.8 fl (80.0-96.0); MONO % 7.6 % (2.0-8.0); NEUTROPHILS # 9.5 10^3/uL (1.5-8.5); NEUTROPHILS % 73.9 % (36.0-66.0); PLATELET COUNT, AUTOMATED 227 10^3/uL (150-450); RED BLOOD COUNT 2.81 10^6/uL (4.30-6.10); WHITE BLOOD COUNT 12.8 10^3/uL (4.0-10.0)
[2023-03-21 06:56] LABS: CALCIUM LEVEL 8.1 MG/DL (8.3-10.6); CREATININE FOR GFR 5.63 MG/DL (0.70-1.30); GLOMERULAR FILTRATION RATE 10.8 (>49); POTASSIUM SERUM 3.7 MMOL/L (3.5-5.1)
[2023-03-21 09:00] VITALS: BP 114/56; TEMP 98.6; O2SAT 98
[2023-03-21] MEDS: LIDOCAINE 5% (LIDODERM) PATCH TD SCH (09:00)
[2023-03-21] MEDS: DOCUSATE SODIUM 100MG CAPSULE PO SCH ×2 (09:32→23:05)
[2023-03-21] MEDS: ASPIRIN 81MG ENTERIC TABLET PO SCH (09:32)
[2023-03-21] MEDS: POTASSIUM CHLORIDE 10MEQ SR TABLET PO SCH ×2 (09:32→23:06)
[2023-03-21] MEDS: CLOPIDOGREL 75 MG TAB PO SCH (09:32)
[2023-03-21] MEDS: PANTOPRAZOLE 40MG VIAL IV SCH ×2 (09:34→23:06)
[2023-03-21] MEDS: INSULIN LISPRO (NovoLOG) PER UNIT SC SCH ×6 (09:35→17:30)
[2023-03-21] MEDS: LEVEMIR (INSULIN DETEMIR) 1 UNITS/0.01ML SC SCH ×2 (09:36→22:47)
[2023-03-21] MEDS: NYSTATIN 100,000 UNITS/GM TOPICAL PWD 15GM TOP SCH ×2 (09:38→23:06)
[2023-03-21] MEDS: prednisoLONE ACET 1% OPHTH SUSP 5ML OS SCH ×2 (09:40→23:07)
[2023-03-21] MEDS: ATROPINE SULFATE 1% OPHTH SOLN 2ML BTL OS SCH (09:40)
[2023-03-21] MEDS: COMBIGAN OU SCH ×2 (09:41→23:08)
[2023-03-21] MEDS: DARBEPOETIN 100MCG/0.5ML *NON-DIALYSIS* SYRINGE SC SCH (11:06)
[2023-03-21 14:00] VITALS: BP 95/50; TEMP 97; O2SAT 95
[2023-03-21 20:00] VITALS: BP 121/51; TEMP 96; O2SAT 96
[2023-03-21] MEDS: ROSUVASTATIN 10 MG TAB (CRESTOR) PO SCH (23:05)
[2023-03-21] MEDS: HEPARIN SOD (PORCINE) 5000UNITS/ML 1ML VIAL/SYRINGE PD SCH (23:07)
[2023-03-21] MEDS: ROCKLATAN OD SCH (23:07)
[2023-03-21] MEDS: LUMIGAN 0.01% OS SCH (23:07)
[2023-03-22] VITALS (11 sets, daily range): BP systolic 77–133; BP diastolic 40–81; TEMP 96.1–97.5; O2SAT 68–99
[2023-03-22] MEDS: SODIUM CHLORIDE 0.9% INJ 10 ML SYR IV PRN ×4 (04:16→12:05)
[2023-03-22] MEDS: ONDANSETRON 4MG 2ML VIAL IV PRN (04:16)
[2023-03-22] MEDS: HEPARIN SOD (PORCINE) 5000UNITS/ML 1ML VIAL/SYRINGE SQ SCH ×3 (06:12→23:36)
[2023-03-22] MEDS: LEVOTHYROXINE 25MCG TABLET (0.025MG) PO SCH (06:12)
[2023-03-22] MEDS: SODIUM CHLORIDE 0.9% INJ 10 ML SYR IV SCH ×2 (06:13→18:46)
[2023-03-22] MEDS: METOCLOPRAMIDE INJ 10MG/2ML VIAL IV SCH ×3 (06:13→18:46)
[2023-03-22 06:59] LABS: BASO # 0.1 10^3/uL (0.0-0.2); BASO % 0.6 % (0.0-1.0); EOS # 0.3 10^3/uL (0.0-0.5); EOS % 2.3 % (0.0-3.0); HEMATOCRIT 29.3 % (42.0-52.0); HEMOGLOBIN 9.8 g/dl (13.5-17.5); LYMPH # 1.4 10^3/uL (1.5-5.0); LYMPH % 9.6 % (24.0-44.0); MEAN CORPUSCULAR HEMOGLOBIN 35.9 pg (27.0-33.0); MEAN CORPUSCULAR HGB CONC 33.4 g/dl (32.0-36.5); MEAN CORPUSCULAR VOLUME 107.3 fl (80.0-96.0); MONO % 7.2 % (2.0-8.0); NEUTROPHILS # 11.3 10^3/uL (1.5-8.5); NEUTROPHILS % 79.2 % (36.0-66.0); PLATELET COUNT, AUTOMATED 228 10^3/uL (150-450); RED BLOOD COUNT 2.73 10^6/uL (4.30-6.10); WHITE BLOOD COUNT 14.2 10^3/uL (4.0-10.0)
[2023-03-22 07:23] LABS: ALBUMIN 1.6 G/DL (3.2-5.2); BILIRUBIN,TOTAL 0.2 MG/DL (0.3-1.2); CALCIUM LEVEL 8.2 MG/DL (8.3-10.6); CREATININE FOR GFR 5.67 MG/DL (0.70-1.30); GLOMERULAR FILTRATION RATE 10.7 (>49); PHOSPHORUS LEVEL 3.7 MG/DL (2.4-5.1); POTASSIUM SERUM 3.6 MMOL/L (3.5-5.1); TOTAL PROTEIN 4.7 G/DL (5.7-8.2)
[2023-03-22] MEDS: INSULIN LISPRO (NovoLOG) PER UNIT SC SCH ×5 (07:30→18:46)
[2023-03-22 07:31] LABS: PROCALCITONIN 1.31 ng/ml
[2023-03-22] MEDS: LEVEMIR (INSULIN DETEMIR) 1 UNITS/0.01ML SC SCH (10:24)
[2023-03-22] MEDS: DOCUSATE SODIUM 100MG CAPSULE PO SCH (10:25)
[2023-03-22] MEDS: PANTOPRAZOLE 40MG VIAL IV SCH ×2 (10:25→23:36)
[2023-03-22] MEDS: ASPIRIN 81MG ENTERIC TABLET PO SCH (10:26)
[2023-03-22] MEDS: POTASSIUM CHLORIDE 10MEQ SR TABLET PO SCH ×2 (10:26→23:35)
[2023-03-22] MEDS: CINACALCET 30 MG TAB (SENSIPAR) PO SCH (10:26)
[2023-03-22] MEDS: CLOPIDOGREL 75 MG TAB PO SCH (10:26)
[2023-03-22] MEDS: NYSTATIN 100,000 UNITS/GM TOPICAL PWD 15GM TOP SCH ×2 (10:27→23:38)
[2023-03-22] MEDS: COMBIGAN OU SCH ×2 (10:27→23:37)
[2023-03-22] MEDS: prednisoLONE ACET 1% OPHTH SUSP 5ML OS SCH ×2 (10:28→23:37)
[2023-03-22] MEDS: ATROPINE SULFATE 1% OPHTH SOLN 2ML BTL OS SCH (10:31)
[2023-03-22] MEDS ORDERED: LEVEMIR (INSULIN DETEMIR) 1 UNITS/0.01ML SC ONE (13:35)
[2023-03-22] MEDS ORDERED: NS 500 ML IV ONE (14:30)
[2023-03-22 14:55] LABS: VENOUS BASE EXCESS -4.2 (-2.0-2.0); VENOUS HCO3 21.4 MMOL/L (23.0-27.0); VENOUS O2 SATURATION 77.8 % (60.0-80.0); VENOUS PARTIAL PRESSURE CO2 41.7 mmHg (38.0-50.0); VENOUS PARTIAL PRESSURE O2 43.7 mmHg (30.0-50.0); VENOUS PH 7.329 UNITS (7.330-7.430); VENOUS STANDARD HCO3 20.6 MMOL/L; VENOUS TOTAL CO2 22.7 MMOL/L (24.0-28.0)
[2023-03-22 14:59] LABS: BASO # 0.1 10^3/uL (0.0-0.2); BASO % 0.5 % (0.0-1.0); EOS # 0.3 10^3/uL (0.0-0.5); EOS % 2.1 % (0.0-3.0); HEMOGLOBIN 9.4 g/dl (13.5-17.5); LYMPH # 1.3 10^3/uL (1.5-5.0); LYMPH % 8.4 % (24.0-44.0); MEAN CORPUSCULAR HEMOGLOBIN 35.3 pg (27.0-33.0); MEAN CORPUSCULAR HGB CONC 32.4 g/dl (32.0-36.5); MONO # 1.2 10^3/uL (0.0-0.8); MONO % 7.8 % (2.0-8.0); NEUTROPHILS # 11.9 10^3/uL (1.5-8.5); NEUTROPHILS % 79.9 % (36.0-66.0); PLATELET COUNT, AUTOMATED 233 10^3/uL (150-450); RED BLOOD COUNT 2.66 10^6/uL (4.30-6.10); WHITE BLOOD COUNT 14.9 10^3/uL (4.0-10.0)
[2023-03-22 15:45] LABS: ALBUMIN 1.5 G/DL (3.2-5.2); BILIRUBIN,TOTAL 0.2 MG/DL (0.3-1.2); CALCIUM LEVEL 7.8 MG/DL (8.3-10.6); CK-MB VALUE MASS 3.2 NG/ML (<3.6); CREATININE FOR GFR 5.59 MG/DL (0.70-1.30); GLOMERULAR FILTRATION RATE 10.9 (>49); POTASSIUM SERUM 3.6 MMOL/L (3.5-5.1); TOTAL PROTEIN 4.6 G/DL (5.7-8.2)
[2023-03-22] MEDS ORDERED: PIPERACILLIN/TAZOBACTAM SOD 3.375 GM in D5W MINI-BAG PLUS 50 ML IV SCH (16:00)
[2023-03-22] MEDS: DIAPER RELIEF PASTE (DESITIN) 60GM TOP SCH ×2 (17:10→23:38)
[2023-03-22] MEDS ORDERED: NS 250 ML IV ONE (17:45)
[2023-03-22] MEDS: PIPERACILLIN/TAZOBACTAM SOD 4.5 GM in D5W MINI-BAG PLUS 50 ML IV SCH (18:46)
[2023-03-22] MEDS: HEPARIN SOD (PORCINE) 5000UNITS/ML 1ML VIAL/SYRINGE PD SCH (23:30)
[2023-03-22] MEDS: ROSUVASTATIN 10 MG TAB (CRESTOR) PO SCH (23:35)
[2023-03-22] MEDS: ROCKLATAN OD SCH (23:36)
[2023-03-22] MEDS: LUMIGAN 0.01% OS SCH (23:37)
[2023-03-23] VITALS (8 sets, daily range): BP systolic 95–130; BP diastolic 39–59; TEMP 97.2–97.5; O2SAT 92–100
[2023-03-23] MEDS: SODIUM CHLORIDE 0.9% INJ 10 ML SYR IV PRN ×6 (00:01→23:41)
[2023-03-23] MEDS: METOCLOPRAMIDE INJ 10MG/2ML VIAL IV SCH ×5 (00:01→23:39)
[2023-03-23] MEDS ORDERED: D5W/0.45% SODIUM CHLORIDE 1,000 ML IV SCH (04:05)
[2023-03-23] MEDS: HEPARIN SOD (PORCINE) 5000UNITS/ML 1ML VIAL/SYRINGE SQ SCH ×3 (05:36→23:39)
[2023-03-23] MEDS: LEVOTHYROXINE 25MCG TABLET (0.025MG) PO SCH (05:36)
[2023-03-23] MEDS: PIPERACILLIN/TAZOBACTAM SOD 4.5 GM in D5W MINI-BAG PLUS 50 ML IV SCH ×2 (06:00→16:56)
[2023-03-23] MEDS: INSULIN LISPRO (NovoLOG) PER UNIT SC SCH ×5 (06:00→16:57)
[2023-03-23 06:28] LABS: BASO # 0.1 10^3/uL (0.0-0.2); BASO % 0.6 % (0.0-1.0); EOS # 0.5 10^3/uL (0.0-0.5); EOS % 4.6 % (0.0-3.0); HEMATOCRIT 29.6 % (42.0-52.0); HEMOGLOBIN 9.6 g/dl (13.5-17.5); LYMPH # 1.9 10^3/uL (1.5-5.0); LYMPH % 17.4 % (24.0-44.0); MEAN CORPUSCULAR HEMOGLOBIN 34.8 pg (27.0-33.0); MEAN CORPUSCULAR HGB CONC 32.4 g/dl (32.0-36.5); MEAN CORPUSCULAR VOLUME 107.2 fl (80.0-96.0); MONO # 1.2 10^3/uL (0.0-0.8); MONO % 10.5 % (2.0-8.0); NEUTROPHILS # 7.3 10^3/uL (1.5-8.5); NEUTROPHILS % 65.5 % (36.0-66.0); PLATELET COUNT, AUTOMATED 238 10^3/uL (150-450); RED BLOOD COUNT 2.76 10^6/uL (4.30-6.10); WHITE BLOOD COUNT 11.1 10^3/uL (4.0-10.0)
[2023-03-23 06:51] LABS: ALBUMIN 1.6 G/DL (3.2-5.2); BILIRUBIN,TOTAL 0.2 MG/DL (0.3-1.2); CALCIUM LEVEL 8.1 MG/DL (8.3-10.6); CREATININE FOR GFR 5.97 MG/DL (0.70-1.30); GLOMERULAR FILTRATION RATE 10.1 (>49); POTASSIUM SERUM 3.7 MMOL/L (3.5-5.1); TOTAL PROTEIN 4.7 G/DL (5.7-8.2)
[2023-03-23] MEDS ORDERED: INSULIN LISPRO (NovoLOG) PER UNIT SC SCH (07:30)
[2023-03-23] MEDS ORDERED: LEVEMIR (INSULIN DETEMIR) 1 UNITS/0.01ML SC SCH (09:00)
[2023-03-23] MEDS: ASPIRIN 81MG ENTERIC TABLET PO SCH (09:10)
[2023-03-23] MEDS: POTASSIUM CHLORIDE 10MEQ SR TABLET PO SCH ×2 (09:11→23:38)
[2023-03-23] MEDS: CLOPIDOGREL 75 MG TAB PO SCH (09:11)
[2023-03-23] MEDS: PANTOPRAZOLE 40MG VIAL IV SCH ×2 (09:11→23:39)
[2023-03-23] MEDS: prednisoLONE ACET 1% OPHTH SUSP 5ML OS SCH ×2 (09:18→23:40)
[2023-03-23] MEDS: SODIUM CHLORIDE 0.9% INJ 10 ML SYR IV SCH ×2 (09:22→16:58)
[2023-03-23] MEDS: COMBIGAN OU SCH ×2 (09:24→23:40)
[2023-03-23] MEDS: ATROPINE SULFATE 1% OPHTH SOLN 2ML BTL OS SCH (09:24)
[2023-03-23] MEDS: DIAPER RELIEF PASTE (DESITIN) 60GM TOP SCH ×2 (09:25→23:41)
[2023-03-23] MEDS: NYSTATIN 100,000 UNITS/GM TOPICAL PWD 15GM TOP SCH ×2 (09:25→23:40)
[2023-03-23] MEDS ORDERED: NS 500 ML IV ONE (16:10)
[2023-03-23] MEDS: LEVEMIR (INSULIN DETEMIR) 1 UNITS/0.01ML SC SCH (22:48)
[2023-03-23] MEDS: ROSUVASTATIN 10 MG TAB (CRESTOR) PO SCH (23:38)
[2023-03-23] MEDS: HEPARIN SOD (PORCINE) 5000UNITS/ML 1ML VIAL/SYRINGE PD SCH (23:39)
[2023-03-23] MEDS: ROCKLATAN OD SCH (23:40)
[2023-03-23] MEDS: LUMIGAN 0.01% OS SCH (23:40)
[2023-03-24 02:04] VITALS: BP 135/50; TEMP 97.5; O2SAT 94
[2023-03-24 05:49] VITALS: BP 132/49; TEMP 97.2; O2SAT 96
[2023-03-24] MEDS: HEPARIN SOD (PORCINE) 5000UNITS/ML 1ML VIAL/SYRINGE SQ SCH ×3 (05:51→22:08)
[2023-03-24] MEDS: PIPERACILLIN/TAZOBACTAM SOD 4.5 GM in D5W MINI-BAG PLUS 50 ML IV SCH ×2 (05:51→18:41)
[2023-03-24] MEDS: METOCLOPRAMIDE INJ 10MG/2ML VIAL IV SCH ×3 (05:51→18:40)
[2023-03-24] MEDS: SODIUM CHLORIDE 0.9% INJ 10 ML SYR IV PRN (05:52)
[2023-03-24 06:34] LABS: BASO # 0.1 10^3/uL (0.0-0.2); BASO % 1.2 % (0.0-1.0); EOS # 0.4 10^3/uL (0.0-0.5); EOS % 4.1 % (0.0-3.0); HEMATOCRIT 30.9 % (42.0-52.0); HEMOGLOBIN 9.9 g/dl (13.5-17.5); LYMPH # 1.2 10^3/uL (1.5-5.0); LYMPH % 12.9 % (24.0-44.0); MEAN CORPUSCULAR HEMOGLOBIN 34.4 pg (27.0-33.0); MEAN CORPUSCULAR VOLUME 107.3 fl (80.0-96.0); MONO # 0.8 10^3/uL (0.0-0.8); NEUTROPHILS # 6.6 10^3/uL (1.5-8.5); NEUTROPHILS % 71.2 % (36.0-66.0); PLATELET COUNT, AUTOMATED 230 10^3/uL (150-450); RED BLOOD COUNT 2.88 10^6/uL (4.30-6.10); WHITE BLOOD COUNT 9.3 10^3/uL (4.0-10.0)
[2023-03-24 07:00] LABS: ALBUMIN 1.7 G/DL (3.2-5.2); BILIRUBIN,TOTAL 0.3 MG/DL (0.3-1.2); CREATININE FOR GFR 5.57 MG/DL (0.70-1.30); GLOMERULAR FILTRATION RATE 10.9 (>49); TOTAL PROTEIN 4.8 G/DL (5.7-8.2)
[2023-03-24] MEDS: LEVOTHYROXINE 25MCG TABLET (0.025MG) PO SCH (08:09)
[2023-03-24] MEDS: SODIUM CHLORIDE 0.9% INJ 10 ML SYR IV SCH ×2 (08:26→18:42)
[2023-03-24] MEDS: ATROPINE SULFATE 1% OPHTH SOLN 2ML BTL OS SCH (09:00)
[2023-03-24] MEDS: COMBIGAN OU SCH ×2 (09:00→21:00)
[2023-03-24] MEDS: INSULIN LISPRO (NovoLOG) PER UNIT SC SCH ×6 (09:18→18:41)
[2023-03-24] MEDS: POTASSIUM CHLORIDE 10MEQ SR TABLET PO SCH ×2 (09:18→22:10)
[2023-03-24] MEDS: CINACALCET 30 MG TAB (SENSIPAR) PO SCH (09:18)
[2023-03-24] MEDS: ASPIRIN 81MG ENTERIC TABLET PO SCH (09:18)
[2023-03-24] MEDS: PANTOPRAZOLE 40MG VIAL IV SCH ×2 (09:18→22:08)
[2023-03-24] MEDS: CLOPIDOGREL 75 MG TAB PO SCH (09:19)
[2023-03-24] MEDS: DIAPER RELIEF PASTE (DESITIN) 60GM TOP SCH ×2 (09:22→21:00)
[2023-03-24] MEDS: NYSTATIN 100,000 UNITS/GM TOPICAL PWD 15GM TOP SCH ×2 (09:22→21:00)
[2023-03-24] MEDS: prednisoLONE ACET 1% OPHTH SUSP 5ML OS SCH ×2 (09:23→21:00)
[2023-03-24 10:54] LABS: CLOSTRIDIUM DIFFICILE PCR NEGATIVE (NEGATIVE)
[2023-03-24 14:00] VITALS: BP 92/50; TEMP 97.5; O2SAT 98
[2023-03-24 20:40] VITALS: BP 110/43; TEMP 97.5; O2SAT 96
[2023-03-24] MEDS: ROCKLATAN OD SCH (21:00)
[2023-03-24] MEDS: LUMIGAN 0.01% OS SCH (21:00)
[2023-03-24] MEDS: HEPARIN SOD (PORCINE) 5000UNITS/ML 1ML VIAL/SYRINGE PD SCH (22:00)
[2023-03-24] MEDS: ROSUVASTATIN 10 MG TAB (CRESTOR) PO SCH (22:09)
[2023-03-24] MEDS: LEVEMIR (INSULIN DETEMIR) 1 UNITS/0.01ML SC SCH (22:09)
[2023-03-25] VITALS: BP 112/51
[2023-03-25] MEDS: METOCLOPRAMIDE INJ 10MG/2ML VIAL IV SCH (00:14)
== END 2023-03-25 05:30 | disposition expired | DRG 871 ==
LOC: EDBD 08:08 → M ED 08:08 → M ED INP 13:49 → M PCU 16:07 → M MSPAV 03-04 17:17 → M PCU 03-08 08:45 → M MSPAV 03-12 17:29 → M ICU 03-15 11:01 → M PCU 03-16 21:47 → M MSPAV 03-20 16:40
PROVIDERS: ADMIT Family Medicine; ATTEND Internal Medicine
PROC: 02HV33Z Insertion of Infusion Device into Superior Vena Cava, Percutaneous Approach (ICD-10-PCS; principal; 2023-03-16)
DX: A41.9 Sepsis, unspecified organism (principal); N18.6 End stage renal disease; J96.01 Acute respiratory failure with hypoxia; J69.0 Pneumonitis due to inhalation of food and vomit; G93.41 Metabolic encephalopathy; R65.21 Severe sepsis with septic shock; I12.0 Hypertensive chronic kidney disease with stage 5 chronic kidney disease or end stage renal disease; N25.81 Secondary hyperparathyroidism of renal origin; A09 Infectious gastroenteritis and colitis, unspecified; J98.11 Atelectasis; E87.20 Acidosis, unspecified; J90 Pleural effusion, not elsewhere classified; R56.9 Unspecified convulsions; E11.51 Type 2 diabetes mellitus with diabetic peripheral angiopathy without gangrene; E11.22 Type 2 diabetes mellitus with diabetic chronic kidney disease; E11.42 Type 2 diabetes mellitus with diabetic polyneuropathy; E78.5 Hyperlipidemia, unspecified; I25.2 Old myocardial infarction; I25.10 Atherosclerotic heart disease of native coronary artery without angina pectoris; E87.6 Hypokalemia; Z66 Do not resuscitate; H40.9 Unspecified glaucoma; R55 Syncope and collapse; Z89.511 Acquired absence of right leg below knee; Z89.512 Acquired absence of left leg below knee; E03.9 Hypothyroidism, unspecified; D53.9 Nutritional anemia, unspecified; K21.9 Gastro-esophageal reflux disease without esophagitis; D63.8 Anemia in other chronic diseases classified elsewhere; R13.19 Other dysphagia; K31.84 Gastroparesis; E11.43 Type 2 diabetes mellitus with diabetic autonomic (poly)neuropathy; E11.649 Type 2 diabetes mellitus with hypoglycemia without coma; R14.0 Abdominal distension (gaseous); K74.60 Unspecified cirrhosis of liver; R74.01 Elevation of levels of liver transaminase levels; K80.20 Calculus of gallbladder without cholecystitis without obstruction; R63.0 Anorexia; D63.1 Anemia in chronic kidney disease; K86.89 Other specified diseases of pancreas; R33.9 Retention of urine, unspecified; Z88.8 Allergy status to other drugs, medicaments and biological substances; Z79.899 Other long term (current) drug therapy; Z79.82 Long term (current) use of aspirin